=== PATIENT | female | born 1960 | race Caucasian/White ===

== ENCOUNTER 2016-09-12 12:53 | Inpatient (IN) | payer OTHER, MEDICAID ==
[2016-09-12] VITALS (11 sets, daily range): BP systolic 120–158; BP diastolic 59–84; PULSE 75–107; RESP 14–25; O2SAT 70–96
[~2016-09-12] VITALS: Ht 162.6 cm; Wt 90.4 kg
[~2016-09-12 12:53] MED LIST: ALBU18HF INH; ASPI81TA3 PO; ATOR20TA65 PO; BUSP15TA3 PO; DICY20TA10 PO; FLUO20CA25 PO; FLUT16SP NASAL; FURO40TA4 PO; GABA-502 PO; HYDR50CA3 PO; IBUP-1827 PO; LORA10CA PO; MELO-253 PO; METH10OR PO; MULT-666 PO; NPR500T PO; OMEP20CA11 PO; POLY17PO6 PO; PRAZ2CAP2 PO; PRE20 PO; PROP10TA8 PO; RANI150C4 PO; SULF1TAB35 PO; TIOT18CA3 INHALATION
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
[2016-09-12] MEDS ORDERED: Albuterol-Ipratropium 3 mL Inhalation Solution NEB ONE (13:10)
[2016-09-12] MEDS ORDERED: MethylprednisoLONE Sodium Succinate 62.5 mg/mL 2 mL Inj IVPUSH ONE (13:10)
[2016-09-12] MEDS ORDERED: Albuterol 2.5 mg/3 mL Inhalation Solution NEB ONE (13:10)
[2016-09-12] MEDS ORDERED: levoFLOXacin Inj 750 MG in IV Premix 1 EACH IV ONE (13:15)
--- NOTE | 2016-09-12 13:50 | DRSVH ---
PROCEDURE: X-RAY CHEST ONE VIEW, PORTABLE ([id number]) INDICATIONS: sob, hypoxia TECHNIQUE: One view of the chest was acquired. COMPARISON: [facility], CR, XR CHEST 1VW (PORTABLE), 07/08/2016, 11:24. FINDINGS: Surgical changes and devices: None. Lungs and pleura: No pleural effusions or pneumothorax. Lungs are abnormal with either lateral mid and lower lung pneumonia, slightly greater on the right than the left.. Mediastinum: Mediastinal contours appear normal. Heart size is normal. Bones and chest wall: No suspicious bony lesions. Overlying soft tissues appear unremarkable. IMPRESSION: Bilateral pneumonia, right greater than left. Dictated by: Lennox Melgoza M.D. on 09/12/2016 at 13:48 Approved by: Lennox Melgoza M.D. on 09/12/2016 at 13:48
[2016-09-12] MEDS ORDERED: Acetaminophen IV 1,000 MG in IV Premix 1 EACH IV ONE (14:25)
[2016-09-12 14:35] LABS: BASOPHILS % (AUTO) 0.2 % (0-3); EOSINOPHILS % (AUTO) 1.2 % (0-5); Mean Corpuscular Hemoglobin 24.1 pg (27.0-35.0); Mean Corpuscular Volume 82.2 fL (81-100); NEUTROPHILS % (AUTO) 83.6 % (40-74); Platelet Count 233 bil/L (150-400)
[2016-09-12 15:05] LABS: Magnesium 1.7 mg/dL (1.6-2.6)
[2016-09-12 15:15] LABS: TROPONIN T < 0.010 ug/L (0.0-0.011)
[2016-09-12] MEDS ORDERED: Polyethylene Glycol (PEG) 17 Gm Powder PO PRN (16:30)
[2016-09-12] MEDS ORDERED: Alum-Mag Hydrox-Simeth 30 mL Suspension PO PRN (16:30)
[2016-09-12] MEDS ORDERED: Ondansetron 2 mg/mL 2 mL Inj IVPUSH PRN (16:30)
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
[2016-09-12] MEDS ORDERED: Glucose 40% Oral Gel 15 Gm Tube PO PRN (18:10)
--- NOTE | 2016-09-12 18:21 | NUR ---
ED to PCC Patient arrived from ED, report taken from Shea Singh ED RN. Patient able to transfer to bed independently. SPO2 88% upon arrival. RT in room with pt, oxymask 2L satting at 90%. Pt AOx3, denies chest pain, denies bipap at this time okay for oxymask. Care continues.
[2016-09-12] MEDS ORDERED: 0.9% Sodium Chloride 250 ML ONE (19:23)
[2016-09-12] MEDS: cefTRIAXone Inj 1,000 MG in IV Premix 1 EACH IV SCH (19:32)
[2016-09-12] MEDS: Pantoprazole 20 mg ER24 Tablet PO SCH (19:32)
[2016-09-12] MEDS: BusPIRone 15 mg Dividose Tablet PO SCH (19:33)
[2016-09-12] MEDS: Insulin LISPRO 300 Unit/3 mL Inj SUBQ SCH (19:42)
[2016-09-12] MEDS: Albuterol-Ipratropium 3 mL Inhalation Solution NEB SCH (20:48)
[2016-09-12] MEDS ORDERED: LORazepam 1 mg Tablet PO PRN (21:15)
[2016-09-12] MEDS: Doxycycline Inj 100 MG in Dextrose 5% Minibag Plus 100 ML IV SCH (21:20)
[2016-09-13] VITALS (15 sets, daily range): BP systolic 137–164; BP diastolic 73–99; PULSE 78–100; RESP 14–22; O2SAT 90–98
[2016-09-13] MEDS: Albuterol-Ipratropium 3 mL Inhalation Solution NEB SCH ×6 (00:14→19:51)
[2016-09-13] MEDS: Heparin 5,000 Unit/mL Inj SUBQ SCH ×3 (00:30→17:53)
[2016-09-13] MEDS: MethylprednisoLONE Sodium Succinate 40 mg/mL Inj IVPUSH SCH ×2 (00:30→10:23)
--- NOTE | 2016-09-13 04:00 | NUR ---
Restful night. Patient slept in bed for most of the night without signs of distress or pain. Patient requested that is let her sleep as much as she could. Patients vitals remained stable throughout the evening and she maintained O2 saturations in the 90s on 2LPM of oxygen via a nasal cannula.
[2016-09-13] MEDS: Insulin LISPRO 300 Unit/3 mL Inj SUBQ SCH ×4 (08:00→22:00)
[2016-09-13] MEDS ORDERED: levoFLOXacin Inj 750 MG in IV Premix 1 EACH IV SCH (08:30)
[2016-09-13 08:58] LABS: BASOPHILS % (AUTO) 0.3 % (0-3); EOSINOPHILS % (AUTO) 0.1 % (0-5); Mean Corpuscular Hemoglobin 24.1 pg (27.0-35.0); Mean Corpuscular Volume 79.7 fL (81-100); NEUTROPHILS % (AUTO) 86.5 % (40-74); Platelet Count 252 bil/L (150-400)
[2016-09-13] MEDS: Pantoprazole 20 mg ER24 Tablet PO SCH ×2 (10:22→22:05)
[2016-09-13] MEDS: BusPIRone 15 mg Dividose Tablet PO SCH ×2 (10:22→22:05)
[2016-09-13] MEDS: cefTRIAXone Inj 1,000 MG in IV Premix 1 EACH IV SCH (10:24)
[2016-09-13] MEDS ORDERED: Methadone 10 mg/mL Oral Concentrate PO SCH (11:45)
--- NOTE | 2016-09-13 11:50 | NUR ---
Palliative care note D/A: Pt discussed today in PCC rounds. Please note that there is not a PC referral for consult during this acute admission. However, there has been an outpt PC referral request received from pt PCP- Jero YANGP. Palliative care staff have called to pt home several times and left message asking for return call to discuss possible consult. No return call has been received. Case discussed with Faith SCHMITT, Palliative Care. She indicates she would like PC staff to follow along at this time and if they find that pt is in a condition that might benefit from a palliative care referral, she would ask that this be pursued. P: Palliative care following along regarding appropriateness for possible inpt PC referral. Yoselin JUAREZ, CCM
[2016-09-13] MEDS: Doxycycline Inj 100 MG in Dextrose 5% Minibag Plus 100 ML IV SCH ×2 (11:59→22:03)
[2016-09-13] MEDS: LORazepam 1 mg Tablet PO PRN (13:26)
[2016-09-13] MEDS: Tiotropium 18mcg/Cap 5 Capsule Inhaler Kit INHALATION SCH (15:46)
--- NOTE | 2016-09-13 16:02 | PCM.PNMED ---
Subjective Date of Service Sep 13, 2016 Subjective Rebeca Casarez is a 55 year old female with history of COPD on 2L home O2, asthma, former smoker presented to the ED via EMS c/o worsening SOB onset 4 days ago. Admitted for COPD exacerbation and influenza A. Hospital day 2. Overnight: No acute overnight events. Patient remained on oxygen mask at 4 L. Today: Patient endorses decreased respiratory effort. She states she feels anxious in typically takes lorazepam 1 mg twice a day. During further discussion patient notes she is seeing Dr. Francisco, oncology, for management of her COPD and is currently on prednisone 40 mg daily. Patient denies any nausea , vomiting, fever, chills. She does endorse fatigue and generalized malaise. Remaining review of systems is negative. Exam Vital Signs Vital Sign - Last Date Time Temp Pulse Resp B/P Pulse Ox O2 Delivery O2 Flow Rate FiO2 09/13/16 12:38 36.5 88 22 137/85 98 OxyMask 4.00 09/12/16 14:06 35 Intake and Output 09/12/16 09/12/16 09/13/16 Cumulative From/Thru 15:00 23:00 07:00 09/12/16 18:09 - 09/13/16 06:07 Intake Total 400 ml 400 ml Output Total 500 ml 500 ml Balance -100 ml -100 ml Intake Oral 400 ml 400 ml Output Urine Total 500 ml 500 ml # Voids 2 2 # Bowel Movements 0 0 Exam General: No acute distress, well-developed, well-nourished, appropriately interactive HEENT: Normocephalic, atraumatic. External ears without defect. Pupils equal, round, and reactive to light and accommodation. Anicteric sclerae, moist conjunctivae, and no lid lag. Moist mucosa. Neck: Supple with full range of motion. No jugular venous distension. No bruits. No lymphadenopathy or thyromegaly. Cardiovascular: Regular rate and rhythm with no murmurs, rubs, or gallops appreciated Pulmonary: Diffuse wheezing bilaterally, decreased air movement particularly in the bases bilaterally. Normal respiratory effort with no use of accessory muscles. Oxymask at [address] Abdomen: Bowel tones present. Soft, nontender, nondistended. No hepatosplenomegaly or masses appreciated. Extremities: No clubbing, cyanosis, edema, or lymphadenopathy appreciated. Skin: Numerous punctate lesions on arms and legs bilaterally in varying stages of healing. Normal temperature, turgor, and texture. Neurological: Cranial nerves grossly intact. Normal muscle strength, tone, and bulk. Reflexes, coordination, and sensory function within normal limits. No known gait impairment. Psychiatric: Normal mood and affect. Alert and oriented to person, place, and time. Lab and Diagnostics Result Diagram: 09/13/16 0815 09/13/16 1405 X-Rays, CTs and MRIs X-RAY CHEST ONE VIEW, PORTABLE IMPRESSION: Bilateral pneumonia, right greater than left. Dictated by: Lennox Melgoza M.D. on 09/12/2016 at 13:48 Approved by: Lennox Melgoza M.D. on 09/12/2016 at 13:48 Assessment & Plan Rebeca Casarez is a 55 year old female with history of COPD on 2L home O2, asthma, former smoker presented to the ED via EMS c/o worsening SOB onset 4 days ago. Admitted for COPD exacerbation and influenza A. Hospital day 2. 1. Acute COPD exacerbation, present on admission, active. - Likely secondary to influenza A. Treatment as below. - On 2 L nasal cannula at home. Follows with Dr. Francisco as an outpatient. - DuoNeb's every 4 hours when necessary. - Tiotropium bromide inhaled daily. - IV Solu-Medrol initially given. Deescalated to prednisone 40 mg daily. - Ceftriaxone and doxycycline initiated on 09/12. We will continue until second procalcitonin returns. - O2 supplementation as needed to maintain O2 sats between 88% and 92%. 2. Influenza A, present on admission, active. - Tamiflu 75 mg twice a day started 09/13/16. - Duonebs every 4 hours when necessary. 3. Hyperkalemia, present on admission, active. - Potassium 5.7 on admission elevated to 6.1. - EKG showed no abnormalities. - Kayexalate given. Repeat potassium level 4.1 after administration. - We will continue to monitor. 4. Diabetes type II, present on admission, recently diagnosed. - Recently prescribed metformin but has not started. - Insulin lispro correctional scale. 5. Anxiety, present on admission, chronic. - Lorazepam 1 mg as needed twice a day. 6. Depression, present on admission, chronic. - Buspirone 7.5 mg twice a day. - Fluoxetine 40 mg daily. 7. Methadone dependency, present on admission, chronic. - Continue home regimen of methadone 90 mg daily. 8. Tobacco use disorder, present on admission, chronic. - Nicotine 7 mg patch daily. Disposition: O2 requirements increased from baseline discharge pending improvement in oxygenation. Likely will discharge home with no needs. Pain Evaluation: Adequate Pain Control GI Prophylaxis: Proton Pump Inhibitor VTE Prophylaxis: Sub-Q Heparin (Unfractionated) VTE Mechanical Devices: Intermittant Pneumatic CD Resuscitation Status: DNR/DNI:Do Not Resuscitate/Intubate Attending Statement The patient was seen and examined together with Dr. Love on 09-13-16 and I agree with the history, exam and plan as outlined in the note above. SHANEL LOVE DO Sep 13, 2016 16:02 Emely Gunn MD Sep 14, 2016 14:28
[2016-09-13] MEDS ORDERED: 0.9% Sodium Chloride 250 ML ONE (16:11)
[2016-09-13 16:43] LABS: APPEARANCE,URINE CLEAR (CLEAR,HAZY); COLOR,URINE YELLOW (YELLOW)
[2016-09-13 16:44] LABS: OCCULT BLOOD,URINE NEGATIVE (NEGATIVE); PH,URINE 5.5 (5.0-8.0); UROBILINOGEN,URINE NORMAL (NORMAL)
--- NOTE | 2016-09-13 16:52 | NUR ---
Anxiety When first entering her room this morning to give her the AM medications she requested Ativan. She said she was very anxious, that her daughter was getting tomorrow and she was anxious about probably not being able to go, that that they have tried like, "a bunch of different medications on me for anxiety, but the only one that works is Ativan." She requested that I speak to the doctors about it. Spoke to Dr. Charles, Dr. Underwood, and Dr. Huitron about it. They changed her Ativan order from at bedtime to 1 mg of Ativan twice a day. Gave her a dose and she seemed to become less anxious after that. She even had a couple of naps. Care continues.
[2016-09-14] VITALS (15 sets, daily range): BP systolic 142–162; BP diastolic 66–99; PULSE 89–109; RESP 16–23; O2SAT 89–98
[2016-09-14] MEDS: Albuterol-Ipratropium 3 mL Inhalation Solution NEB SCH ×6 (00:22→20:47)
[2016-09-14] MEDS: Heparin 5,000 Unit/mL Inj SUBQ SCH ×3 (01:00→17:20)
[2016-09-14] MEDS: LORazepam 1 mg Tablet PO PRN ×2 (04:17→21:06)
[2016-09-14 04:42] LABS: BASOPHILS % (AUTO) 0.1 % (0-3); EOSINOPHILS % (AUTO) 0 % (0-5); MONOCYTES % (AUTO) 6.5 % (4-12); Mean Corpuscular Hemoglobin 23.7 pg (27.0-35.0); Mean Corpuscular Volume 81.3 fL (81-100); NEUTROPHILS % (AUTO) 84.4 % (40-74); Platelet Count 264 bil/L (150-400)
--- NOTE | 2016-09-14 06:24 | NUR ---
Respiratory/Restful Night O2 anywhere from 2-3L NC to maintain sats 88-92, pt w/ audible wheezes and increased SOB when up to BR. Wheezing seemed slightly better after neb treatments. Pt slept most of night, woke in rotor winder when needing the BR and expressed some sadness over missing her daughter's wedding, she lay awake for some time and also c/o of a headache. Pt asked nursing for Ativan to help her sleep again and this was effective. Pt sleeping well since then.
[2016-09-14] MEDS: Insulin LISPRO 300 Unit/3 mL Inj SUBQ SCH ×4 (07:38→21:07)
[2016-09-14] MEDS: cefTRIAXone Inj 1,000 MG in IV Premix 1 EACH IV SCH (09:00)
[2016-09-14] MEDS: Pantoprazole 20 mg ER24 Tablet PO SCH ×2 (09:03→21:06)
[2016-09-14] MEDS: BusPIRone 15 mg Dividose Tablet PO SCH ×2 (09:04→21:06)
--- NOTE | 2016-09-14 09:23 | NUR ---
Social Work Note: Screen Note Data& Assessment: EMR reviewed. Rebeca Casarez is a 55 year old female admitted n 09/12/2016 for pneumonia and respiratory failure. Pt has [employer] and [facility] Medicaid insurance coverage. Pt sees Martha GREENE for primary care. Pt lives in [place] and is independent at baseline. Pt is currently SBA in her room. Pt uses 2L 02 at baseline and is currently on 4L 02. No discharge needs identified at this time. SW to continue to follow if any needs arise. Plan: Anticipated discharge home via POV when medically ready. No discharge needs identified at this time. SW to continue to follow if any needs arise. OSKAR Vee
[2016-09-14] MEDS: Doxycycline Inj 100 MG in Dextrose 5% Minibag Plus 100 ML IV SCH ×2 (09:46→21:06)
[2016-09-14] MEDS: Tiotropium 18mcg/Cap 5 Capsule Inhaler Kit INHALATION SCH (10:00)
[2016-09-14] MEDS: Methadone 10 mg/mL Oral Concentrate PO SCH (10:54)
--- NOTE | 2016-09-14 18:17 | PCM.PNMED ---
Subjective Date of Service Sep 14, 2016 Subjective Rebeca Casarez is a 55 year old female with history of COPD on 2L home O2, asthma, former smoker presented to the ED via EMS c/o worsening SOB onset 4 days ago. Admitted for COPD exacerbation and influenza A. Hospital day 3. Overnight: No acute overnight events. Patient remained on oxygen mask at 2-3 L. Today: Patient continues to focus on her chronic pain and anxiety. She is difficult to motivate to get up from bed. Discussed the importance of keeping up strength and movement. Patient denies any nausea, vomiting, fever, chills. She does endorse fatigue and generalized malaise. Remaining review of systems is negative. Exam Vital Signs Vital Sign - Last Date Time Temp Pulse Resp B/P Pulse Ox O2 Delivery O2 Flow Rate FiO2 09/14/16 08:00 89 18 98 Nasal Cannula 2.00 09/14/16 07:32 36.8 158/99 09/12/16 14:06 35 Intake and Output 09/13/16 09/13/16 09/14/16 Cumulative From/Thru 15:00 23:00 07:00 09/12/16 18:09 - 09/14/16 06:10 Intake Total 1074 ml 400 ml 1874 ml Output Total 700 ml 300 ml 1500 ml Balance 374 ml 100 ml 374 ml Intake Oral 520 ml 400 ml 1320 ml IV Total 554 ml 554 ml Output Urine Total 700 ml 300 ml 1500 ml # Voids 4 6 # Bowel Movements 0 0 Exam General: No acute distress, well-developed, well-nourished, appropriately interactive HEENT: Normocephalic, atraumatic. External ears without defect. Pupils equal, round, and reactive to light and accommodation. Anicteric sclerae, moist conjunctivae, and no lid lag. Moist mucosa. Neck: Supple with full range of motion. No jugular venous distension. No bruits. No lymphadenopathy or thyromegaly. Cardiovascular: Regular rate and rhythm with no murmurs, rubs, or gallops appreciated Pulmonary: Diffuse wheezing bilaterally, decreased air movement particularly in the bases bilaterally. Normal respiratory effort with no use of accessory muscles. Oxymask at [address] Abdomen: Bowel tones present. Soft, nontender, nondistended. No hepatosplenomegaly or masses appreciated. Extremities: No clubbing, cyanosis, edema, or lymphadenopathy appreciated. Skin: Numerous punctate lesions on arms and legs bilaterally in varying stages of healing. Normal temperature, turgor, and texture. Neurological: Cranial nerves grossly intact. Normal muscle strength, tone, and bulk. Reflexes, coordination, and sensory function within normal limits. No known gait impairment. Psychiatric: Normal mood and affect. Alert and oriented to person, place, and time. Lab and Diagnostics Result Diagram: 09/14/1640909/14/16409 Microbiology Strep pneumoniae urine antigen positive Influenza A positive X-Rays, CTs and MRIs X-RAY CHEST ONE VIEW, PORTABLE IMPRESSION: Bilateral pneumonia, right greater than left. Dictated by: Lennox Melgoza M.D. on 09/12/2016 at 13:48 Approved by: Lennox Melgoza M.D. on 09/12/2016 at 13:48 Assessment & Plan Rebeca Casarez is a 55 year old female with history of COPD on 2L home O2, asthma, former smoker presented to the ED via EMS c/o worsening SOB onset 4 days ago. Admitted for COPD exacerbation and influenza A. Hospital day 3. 1. Acute COPD exacerbation, present on admission, active. - Likely secondary to influenza A. Treatment as below. - On 2 L nasal cannula at home. Follows with Dr. Francisco as an outpatient. - DuoNeb's every 4 hours when necessary. - Tiotropium bromide inhaled daily. - IV Solu-Medrol initially given. Deescalated to prednisone 40 mg daily. - O2 supplementation as needed to maintain O2 sats between 88% and 92%. - Antibiotics as in #3. 2. Influenza A, present on admission, active. - Tamiflu 75 mg twice a day started 09/13/16. - Duonebs every 4 hours when necessary. 3. Pneumonia, present on admission, active. - Streptococcus pneumonia antigen positive. - Legionella negative. - Chest x-ray 09/12 revealed bilateral pneumonia right greater than left. - Inhalers as in #1. - Supplemental oxygen as needed to maintain O2 sats between 88% 92%. - Antibiotics including ceftriaxone (09/12) and doxycycline (). 4. Hyperkalemia, present on admission, resolved. - Potassium 5.7 on admission elevated to 6.1. - EKG showed no abnormalities. - Kayexalate given. Repeat potassium level 4.1 after administration. - We will continue to monitor. 5. Diabetes type II, present on admission, recently diagnosed. - Recently prescribed metformin but has not started. - Insulin lispro correctional scale. 6. Anxiety, present on admission, chronic. - Lorazepam 1 mg as needed twice a day. 7. Depression, present on admission, chronic. - Buspirone 7.5 mg twice a day. - Fluoxetine 40 mg daily. 8. Methadone dependency, present on admission, chronic. - Continue home regimen of methadone 90 mg daily. 9. Tobacco use disorder, present on admission, chronic. - Nicotine 21 mg patch daily. Disposition: O2 requirements increased from baseline discharge pending improvement in oxygenation. Likely will discharge home with no needs. GI Prophylaxis: Proton Pump Inhibitor VTE Prophylaxis: Sub-Q Heparin (Unfractionated) VTE Mechanical Devices: Intermittant Pneumatic CD Resuscitation Status: DNR/DNI:Do Not Resuscitate/Intubate Attending Statement The patient was seen and examined together with Dr. Love on 09-14-16 and I agree with the history, exam and plan as outlined in the note above. SHANEL LOVE DO Sep 14, 2016 10:21 Emely Gunn MD Sep 15, 2016 14:44
--- NOTE | 2016-09-14 18:34 | NUR ---
BLOOD SUGARS/RESPIRATORY Blood sugars have not registered above 100 this shift. 0800: 90, 1200: 93, 1700: 83. Insulin withheld, and 15 gm carbohydrate administered PO for evening blood sugar, and patient also received dinner, states she does not feel hypoglycemic. Will continue to monitor. Patient required OxyMask 5L for a brief period this evening, as SpO2 decreased to 82%, recovered over 15 minutes, increased to 90%, so placed on 4L NC and patient has been tolerating this setting since. Will continue to monitor.
[2016-09-14] MEDS: predniSONE 20 mg Tablet PO SCH (21:06)
[2016-09-15] VITALS (11 sets, daily range): BP systolic 147–166; BP diastolic 86–94; PULSE 90–105; RESP 18–22; O2SAT 88–94
[2016-09-15] MEDS: Albuterol-Ipratropium 3 mL Inhalation Solution NEB SCH ×7 (00:30→20:27)
[2016-09-15] MEDS ORDERED: 0.9% Sodium Chloride 250 ML ONE (00:49)
[2016-09-15] MEDS: Heparin 5,000 Unit/mL Inj SUBQ SCH ×4 (00:57→23:52)
[2016-09-15 04:41] LABS: BASOPHILS % (AUTO) 0.5 % (0-3); EOSINOPHILS % (AUTO) 0.1 % (0-5); MONOCYTES % (AUTO) 3.2 % (4-12); Mean Corpuscular Volume 82.1 fL (81-100); NEUTROPHILS % (AUTO) 83.1 % (40-74); Platelet Count 252 bil/L (150-400)
--- NOTE | 2016-09-15 04:44 | NUR ---
Patient did not want to woken up for her 0000 or 0430 neb treatments. Patient was checked at both times and was in no respiratory distress. Patient was encouraged to call if she woke up and felt she needed a treatment at any time. Rita Vasques RT
--- NOTE | 2016-09-15 04:44 | NUR ---
CPOx Pt refused pulse oximetry over night. Spot checked with Q4 vitals. sats remained in 90's on 4L NC.
[2016-09-15] MEDS: Insulin LISPRO 300 Unit/3 mL Inj SUBQ SCH ×4 (08:00→20:52)
[2016-09-15] MEDS: Doxycycline Inj 100 MG in Dextrose 5% Minibag Plus 100 ML IV SCH ×2 (08:01→20:37)
[2016-09-15] MEDS: cefTRIAXone Inj 1,000 MG in IV Premix 1 EACH IV SCH (08:01)
[2016-09-15] MEDS: Pantoprazole 20 mg ER24 Tablet PO SCH ×2 (08:02→20:37)
[2016-09-15] MEDS: BusPIRone 15 mg Dividose Tablet PO SCH ×2 (08:03→20:38)
[2016-09-15] MEDS: Tiotropium 18mcg/Cap 5 Capsule Inhaler Kit INHALATION SCH (08:04)
[2016-09-15] MEDS: Methadone 10 mg/mL Oral Concentrate PO SCH (08:04)
[2016-09-15] MEDS: LORazepam 1 mg Tablet PO PRN ×3 (08:09→20:31)
[2016-09-15] MEDS: predniSONE 20 mg Tablet PO SCH (10:10)
--- NOTE | 2016-09-15 17:27 | PCM.PNMED ---
Subjective Date of Service Sep 15, 2016 Subjective Rebeca Casarez is a 55 year old female with history of COPD on 2L home O2, asthma, former smoker presented to the ED via EMS c/o worsening SOB onset 4 days ago. Admitted for COPD exacerbation and influenza A. Hospital day 4. Overnight: No acute overnight events. Patient remained on oxygen mask at 3-4 L. Today: Patient still feels weak and short of breath. Patient was in bed for the majority of yesterday. Discussed the need to ambulate and sit in chair. Patient walked halls and desaturated to 69% on 4 L nasal canula. Patient denies any nausea, vomiting, fever, chills. She does endorse fatigue and generalized malaise. Remaining review of systems is negative. Exam Vital Signs Vital Sign - Last Date Time Temp Pulse Resp B/P Pulse Ox O2 Delivery O2 Flow Rate FiO2 09/15/16 16:27 37.0 97 20 166/94 92 Nasal Cannula 4.50 09/12/16 14:06 35 Intake and Output 09/14/16 09/14/16 09/15/16 Cumulative From/Thru 15:00 23:00 07:00 09/12/16 18:09 - 09/15/16 05:34 Intake Total 297 ml 371 ml 1023 ml 3565 ml Output Total 650 ml 400 ml 2550 ml Balance 297 ml -279 ml 623 ml 1015 ml Intake Oral 200 ml 876 ml 2396 ml IV Total 297 ml 171 ml 147 ml 1169 ml Output Urine Total 650 ml 400 ml 2550 ml # Voids 2 8 # Bowel Movements 0 0 Exam General: No acute distress, well-developed, well-nourished, appropriately interactive HEENT: Normocephalic, atraumatic. External ears without defect. Pupils equal, round, and reactive to light and accommodation. Anicteric sclerae, moist conjunctivae, and no lid lag. Moist mucosa. Neck: Supple with full range of motion. No jugular venous distension. No bruits. No lymphadenopathy or thyromegaly. Cardiovascular: Regular rate and rhythm with no murmurs, rubs, or gallops appreciated Pulmonary: Diffuse wheezing bilaterally, decreased air movement particularly in the bases bilaterally. Normal respiratory effort with no use of accessory muscles. Oxymask at [address] Abdomen: Bowel tones present. Soft, nontender, nondistended. No hepatosplenomegaly or masses appreciated. Extremities: No clubbing, cyanosis, edema, or lymphadenopathy appreciated. Skin: Numerous punctate lesions on arms and legs bilaterally in varying stages of healing. Normal temperature, turgor, and texture. Neurological: Cranial nerves grossly intact. Normal muscle strength, tone, and bulk. Reflexes, coordination, and sensory function within normal limits. No known gait impairment. Psychiatric: Normal mood and affect. Alert and oriented to person, place, and time. Lab and Diagnostics Result Diagram: 09/15/16 0356 09/15/16 0356 Microbiology Strep pneumoniae urine antigen positive Influenza A positive X-Rays, CTs and MRIs X-RAY CHEST ONE VIEW, PORTABLE IMPRESSION: Bilateral pneumonia, right greater than left. Dictated by: Lennox Melgoza M.D. on 09/12/2016 at 13:48 Approved by: Lennox Melgoza M.D. on 09/12/2016 at 13:48 Assessment & Plan Rebeca Casarez is a 55 year old female with history of COPD on 2L home O2, asthma, former smoker presented to the ED via EMS c/o worsening SOB onset 4 days ago. Admitted for COPD exacerbation and influenza A. Hospital day 4. 1. Acute COPD exacerbation, present on admission, active. - Likely secondary to influenza A. Treatment as below. - On 2 L nasal cannula at home. Follows with Dr. Francisco as an outpatient. - DuoNeb's every 4 hours when necessary. - Tiotropium bromide inhaled daily. - IV Solu-Medrol initially given. Deescalated to prednisone 40 mg daily. - O2 supplementation as needed to maintain O2 sats between 88% and 92%. - Antibiotics as in #3. 2. Influenza A, present on admission, active. - Tamiflu 75 mg twice a day started 09/13/16. - Duonebs every 4 hours when necessary. 3. Pneumonia, present on admission, active. - Streptococcus pneumonia antigen positive. - Legionella negative. - Chest x-ray 09/12 revealed bilateral pneumonia right greater than left. - Inhalers as in #1. - Supplemental oxygen as needed to maintain O2 sats between 88% 92%. - Antibiotics including ceftriaxone (09/12) and doxycycline (115). 4. Hyperkalemia, present on admission, resolved. - Potassium 5.7 on admission elevated to 6.1. - EKG showed no abnormalities. - Kayexalate given. Repeat potassium level 4.1 after administration. - We will continue to monitor. 5. Diabetes type II, present on admission, recently diagnosed. - Recently prescribed metformin but has not started. - Insulin lispro correctional scale. 6. Anxiety, present on admission, chronic. - Lorazepam 1 mg as needed twice a day. 7. Depression, present on admission, chronic. - Buspirone 7.5 mg twice a day. - Fluoxetine 40 mg daily. 8. Methadone dependency, present on admission, chronic. - Continue home regimen of methadone 90 mg daily. 9. Tobacco use disorder, present on admission, chronic. - Nicotine 21 mg patch daily. Disposition: O2 requirements increased from baseline and desaturates with activity. Discharge pending improvement in oxygenation. Likely will discharge home with no needs. Pain Evaluation: Adequate Pain Control GI Prophylaxis: Proton Pump Inhibitor VTE Prophylaxis: Sub-Q Heparin (Unfractionated) VTE Mechanical Devices: Intermittant Pneumatic CD Resuscitation Status: DNR/DNI:Do Not Resuscitate/Intubate Attending Statement The patient was seen and examined together with Dr. Love on 09-15-16 and I agree with the history, exam and plan as outlined in the note above. SHANEL LOVE DO Sep 15, 2016 17:27 Emely Gunn MD Sep 16, 2016 13:58
--- NOTE | 2016-09-15 17:37 | NUR ---
O2/Ambulation While the pt was able to maintain appropriate O2 sats in bed at 4L NC, the pt desat's to 69% on 4L NC when ambulating 20 feet in the miller. The decision to keep the pt here for another day was subsequently made. The pt continues to maintain sats on the low 90's on 3-4L NC. The POC is a hopeful DC home on O2 tomorrow.
[2016-09-16] VITALS (8 sets, daily range): BP systolic 128–171; BP diastolic 70–94; PULSE 82–118; RESP 17–28; O2SAT 90–94
[2016-09-16] MEDS: LORazepam 1 mg Tablet PO PRN ×2 (00:30→14:48)
--- NOTE | 2016-09-16 04:06 | NUR ---
Respiratory/ anxiety: Sp02 maintained on 4 L NC. pt easily desats with minimal activity- recovers with rest. dry cough noted. Tessalon Pearls given x1. Pt intermittently anxious regarding recent passing of friend. PRN PO Ativan given per pt request with good results- pt sleeping intermittently.
[2016-09-16] MEDS: Albuterol-Ipratropium 3 mL Inhalation Solution NEB SCH ×3 (04:30→11:45)
[2016-09-16 05:46] LABS: BASOPHILS % (AUTO) 0.2 % (0-3); EOSINOPHILS % (AUTO) 0.2 % (0-5); Mean Corpuscular Hemoglobin 23.6 pg (27.0-35.0); Mean Corpuscular Volume 81.8 fL (81-100); NEUTROPHILS % (AUTO) 72.6 % (40-74); Platelet Count 276 bil/L (150-400)
[2016-09-16] MEDS: Insulin LISPRO 300 Unit/3 mL Inj SUBQ SCH ×2 (08:00→12:00)
[2016-09-16] MEDS: BusPIRone 15 mg Dividose Tablet PO SCH (09:09)
[2016-09-16] MEDS: Pantoprazole 20 mg ER24 Tablet PO SCH (09:14)
[2016-09-16] MEDS: predniSONE 20 mg Tablet PO SCH (09:14)
[2016-09-16] MEDS: Tiotropium 18mcg/Cap 5 Capsule Inhaler Kit INHALATION SCH (09:15)
[2016-09-16] MEDS: Methadone 10 mg/mL Oral Concentrate PO SCH (09:16)
[2016-09-16] MEDS: Heparin 5,000 Unit/mL Inj SUBQ SCH (09:17)
[2016-09-16] MEDS: Doxycycline Inj 100 MG in Dextrose 5% Minibag Plus 100 ML IV SCH (09:20)
[2016-09-16] MEDS: cefTRIAXone Inj 1,000 MG in IV Premix 1 EACH IV SCH (09:20)
[2016-09-16] MEDS ORDERED: OSLT75C PO (11:53)
[2016-09-16] MEDS ORDERED: CEFU500T61 PO (11:53)
--- NOTE | 2016-09-16 12:04 | PCM.DIMED ---
Discharge Instructions Date of Service Sep 16, 2016 Dates of Hospitalization Sep 12, 2016 at 16:19 Discharge Diagnosis Discharge Diagnosis 1. Acute COPD exacerbation, present on admission, improved. 2. Influenza A, present on admission, under treatment. 3. Pneumonia, present on admission, under treatment. 4. Hyperkalemia, present on admission, resolved. 5. Diabetes type II, present on admission, recently diagnosed. 6. Anxiety, present on admission, chronic. 7. Depression, present on admission, chronic. 8. Methadone dependency, present on admission, chronic. 9. Tobacco use disorder, present on admission, chronic. Medication Instructions During your hospitalization you were diagnosed with influenza A and pneumonia. Treatment was started in the hospital but needs to be continued at home as follows: - Tamiflu 75 mg twice a day for 3 more doses. This will complete your course on the evening of 09/17. - Ceftin 500 mg twice a day for 5 more doses. This will complete your course on the evening of 09/18. No other changes to your medications were made. Please take all medications as previously prescribed by your primary care doctor and specialists. Diet Diabetic Activity Other (Gradually increase exercise as tolerated. Monitor your oxygen saturation.) Call your provider Fever or Chills, Shortness of breath, Chest pain, Weakness (unilateral) Patient Instructions - During your hospitalization you were diagnosed with influenza A and pneumonia. - Please complete your antibiotics and Tamiflu as directed above. - Currently you are requiring slightly more oxygen when ambulating. Continue to monitor your oxygen level at home. - If you develop increased shortness of breath or cough please call your primary care doctor or return to the emergency department immediately. - Follow up with your primary care doctor in 3-4 days. - Follow up with Dr. Francisco, conductor orchestra, as scheduled for 09/23/16. Follow-up Provider: Martha Lanza Follow-up with PCP in: Other (3-4 days) Provider: Sophy Francisco MD Follow-up in: Other (as scheduled for 09/23/16) SHANEL LOVE DO Sep 16, 2016 12:04
--- NOTE | 2016-09-16 12:49 | NUR ---
PATIENT ANXIETY - Pt is anxious about going home due to the recent passing of a friend. She expressed concern that she isn't going to be able to deal with the grief. We spoke about her making sure to reach out to her support network during this time.
--- NOTE | 2016-09-16 14:53 | NUR ---
Social Work: Discharge D: Pt discussed in am rounds. Pt is medically stable for discharge home today. EMR reviewed, pt has been ambulating I with [facility] plans staff officer today. Pt expressing anxiety about discharge home due to recent loss of a friend. ASSEMBLING FABRICATOR met with pt at bedside to confirm dcp. Pt agrees with plan home and is calling friends to come pick her up. Pt expressed grief over the of a good friend. ASSEMBLING FABRICATOR offered community MH resources which the pt declined. Pt denies any SI ideation and states she has good support from friends. A: Pt who is I at baseline. P: Anticipate pt to discharge home today via POV. No sw needs or barriers identified at this time. OSKAR Foy
--- NOTE | 2016-09-16 14:54 | PCM.DC.MED ---
Discharge Summary Date of Service Sep 16, 2016 Dates of Hospitalization Date of Hospital Admission Sep 12, 2016 at 16:19 Date of Discharge: Sep 16, 2016 Providers: Admitting Physician: Uvaldo Melgoza MD Primary Care Physician: Martha Lanza Attending Physician: Uvaldo Melgoza MD Diagnosis at Time of Discharge Diagnosis at Time of Discharge 1. Acute COPD exacerbation, present on admission, improved. 2. Influenza A, present on admission, under treatment. 3. Pneumonia, present on admission, under treatment. 4. Hyperkalemia, present on admission, resolved. 5. Diabetes type II, present on admission, recently diagnosed. 6. Anxiety, present on admission, chronic. 7. Depression, present on admission, chronic. 8. Methadone dependency, present on admission, chronic. 9. Tobacco use disorder, present on admission, chronic. Procedures XRay, CTs & MRIs X-RAY CHEST ONE VIEW, PORTABLE IMPRESSION: Bilateral pneumonia, right greater than left. Dictated by: Lennox Melgoza M.D. on 09/12/2016 at 13:48 Approved by: Lennox Melgoza M.D. on 09/12/2016 at 13:[address] Melgoza's H&P: 55 year old female with history of COPD on 2L home O2, asthma,former smoker presented to the ED via EMS c/o worsening SOB onset 4 days ago. This is associated subjective fever, non-productive cough, chest tightness, head ache. Upon EMS arrival her oxygen saturation was 85% on room air which improved on route to 98% after being placed on 2L of O2 and receiving a breathing treatment. O2 sat on RA at time of interview is 70%. She denies CP, abdominal pain, N/V/D. She has been using prescribed inhalers without relief. Only recently she was told that she has COPD and diabetes. Her diabetes medications have not been started yet. She has never required intubation. In ER, she was placed on BiPAP intermittently and pt states that she does not want it. ABG was : 7.25 / 79 / 106 / 32. Labs revealed leukocytosis, mild elevation of potassium of 5.7, low albumin 3.2 and elevated BNP of 947. Hospital Course Rebeca Casarez is a 55 year old female with history of COPD on 2L home O2, asthma, former smoker presented to the ED via EMS c/o worsening SOB onset 4 days ago. Admitted for COPD exacerbation and influenza A. 1. Acute COPD exacerbation, present on admission, improving. - Likely secondary to influenza A. Treatment as below. - On 2 L nasal cannula at home. Follows with Dr. Francisco as an outpatient. - DuoNeb's every 4 hours when necessary. - Tiotropium bromide inhaled daily. - IV Solu-Medrol initially given. Deescalated to prednisone 40 mg daily. -O2 supplementation as needed to maintain O2 sats between 88% and 92%. - Requiring 3-4L with activity and 2L at rest at time of discharge. - Antibiotics as in #3. 2. Influenza A, present on admission, under treatment. - Tamiflu 75 mg twice a day started 09/13/16. - Duonebs every 4 hours when necessary. 3. Pneumonia, present on admission, under treatment. - Streptococcus pneumonia antigen positive. - Legionella negative. - Chest x-ray 09/12 revealed bilateral pneumonia right greater than left. - Inhalers as in #1. - Supplemental oxygen as needed to maintain O2 sats between 88% 92%. - Antibiotics including ceftriaxone (09/12) and doxycycline (115). 4. Hyperkalemia, present on admission, resolved. - Potassium 5.7 on admission elevated to 6.1. - EKG showed no abnormalities. - Kayexalate given. Repeat potassium level 4.1 after administration. - We will continue to monitor. 5. Diabetes type II, present on admission, recently diagnosed. - Recently prescribed metformin but has not started. - Insulin lispro correctional scale. 6. Anxiety, present on admission, chronic. - Lorazepam 1 mg as needed twice a day. 7. Depression, present on admission, chronic. - Buspirone 7.5 mg twice a day. - Fluoxetine 40 mg daily. 8. Methadone dependency, present on admission, chronic. - Continue home regimen of methadone 90 mg daily. 9. Tobacco use disorder, present on admission, chronic. - Nicotine 21 mg patch daily. Exam Vital Signs (Last) Date Time Temp Pulse Resp B/P Pulse Ox O2 Delivery O2 Flow Rate FiO2 09/16/16 12:14 Supplement Oxygen 09/16/16 11:59 37.4 99 18 128/70 94 4.00 09/12/16 14:06 35 Exam General: No acute distress, well-developed, well-nourished, appropriately interactive HEENT: Normocephalic, atraumatic. External ears without defect. Pupils equal, round, and reactive to light and accommodation. Anicteric sclerae, moist conjunctivae, and no lid lag. Moist mucosa. Neck: Supple with full range of motion. No jugular venous distension. No bruits. No lymphadenopathy or thyromegaly. Cardiovascular: Regular rate and rhythm with no murmurs, rubs, or gallops appreciated Pulmonary: Diffuse wheezing bilaterally, decreased air movement. Normal respiratory effort with no use of accessory muscles. Nasal cannula at 2-3 L. Abdomen: Bowel tones present. Soft, nontender, nondistended. No hepatosplenomegaly or masses appreciated. Extremities: No clubbing, cyanosis, edema, or lymphadenopathy appreciated. Skin: Numerous punctate lesions on arms and legs bilaterally in varying stages of healing. Normal temperature, turgor, and texture. Neurological: Cranial nerves grossly intact. Normal muscle strength, tone, and bulk. Reflexes, coordination, and sensory function within normal limits. No known gait impairment. Psychiatric: Normal mood and affect. Alert and oriented to person, place, and time. Test 09/12/16 14:00 09/13/16 08:15 09/13/16 16:20 09/14/16 04:10 Magnesium Level 1.7mg/dL (1.6-2.6) Troponin T < 0.010ug/L (0.0-0.011) Pro-B-Type Natriuretic Peptide 947.4pg/mL (0-287) Total Bilirubin 0.2mg/dL (0.0-1.2) Aspartate Amino Transf (AST/SGOT) 32U/L (0-50) Alanine Aminotransferase (ALT/SGPT) 25U/L (0-32) Alkaline Phosphatase 101U/L (25-150) Total Protein 6.1g/dL (6.4-8.4) Albumin 2.9g/dL (3.4-5.0) Urine Color Yellow (YELLOW) Urine Appearance Clear (CLEAR,HAZY) Urine pH 5.5 (5.0-8.0) Urine Specific [place] 1.020 (1.003-1.035) Urine Protein Negativemg/dL (NEG,TRACE) Urine Glucose (UA) Negativemg/dL (NEGATIVE) Urine Ketones Negativemg/dL (NEGATIVE) Urine Occult Blood Negative (NEGATIVE) Urine Nitrite Negative (NEGATIVE) Urine Bilirubin Negative (NEGATIVE) Urine Urobilinogen Normalmg/dL (NORMAL) Urine Leukocyte Esterase Negative (NEGATIVE) Urine RBC 0-2/hpf (0-2) Urine WBC 0-5/hpf (0-5) Urine Epithelial Cells None/hpf (NONE-MOD) Urine Crystals None seen (NONE SEEN) Urine Bacteria None/hpf (NONE-FEW) Urine Hyaline Casts None/lpf (NONE) Urine Granular Casts None seen (NONE SEEN) Urine Waxy Casts None seen (NONE SEEN) Urine Red Blood Cell Casts None seen (NONE SEEN) Urine White Blood Cell Casts None seen (NONE SEEN) Urine Mucus None seen (None Seen) Urine Trichomonas None seen (NONE SEEN) Urine Yeast None (NONE SEEN) Urinalysis Comment None Urine Culture Reflexed Not indicated Urine Opiates Screen Negative Urine Methadone Screen Positive Urine Barbiturates Screen Negative Urine Amphetamines Screen Negative Urine Benzodiazepines Screen Negative Urine Cocaine Metabolite Screen Negative Urine Cannabinoids Screen Negative Urine Legionella pneumophilia Ag Negative (Negative) Procalcitonin < 0.05ng/mL (See Comment) Test 09/16/16 04:37 White Blood Count 12.2th/mm3 (3.8-10.1) Red Blood Count 4.45mil/mm3 (3.90-5.20) Hemoglobin 10.5g/dL (12.0-15.6) Hematocrit 36.4% (35.0-46.0) Mean Corpuscular Volume 81.8fL (81-100) Mean Corpuscular Hemoglobin 23.6pg (27.0-35.0) Mean Corpuscular Hemoglobin Concent 28.8% (32.0-37.0) Red Cell Distribution Width 21.0% (12.3-15.4) Platelet Count 276bil/L (150-400) Neutrophils (%) (Auto) 72.6% (40-74) Lymphocytes (%) (Auto) 20.1% (14-46) Monocytes (%) (Auto) 6.0% (4-12) Eosinophils (%) (Auto) 0.2% (0-5) Basophils (%) (Auto) 0.2% (0-3) Sodium Level 142mEq/L (134-144) Potassium Level 4.4mEq/L (3.5-5.2) Chloride Level 97mEq/L (97-108) Carbon Dioxide Level 33mmol/L (18-29) Blood Urea Nitrogen 23mg/dL (6-24) Creatinine 0.70mg/dL (0.57-1.00) Estimat Glomerular Filtration Rate 124mL/min (>59) Glucose Level 108mg/dL (60-99) Calcium Level 8.7mg/dL (8.5-10.1) Microbiology Results Strep pneumoniae urine antigen positive Influenza A positive Discharge Medications Discharge Medications Aspirin Chew (Aspirin Chew) 81 Mg Tablet 81 MG PO DAILY Prescribed by: DANIEL PINA DO Atorvastatin Calcium (Atorvastatin Calcium) 20 Mg Tablet 20 MG PO HS Prescribed by: DANIEL PINA DO Buspirone (Buspirone) 15 Mg Tablet 7.5 MG PO BID (Reported) Cefuroxime Axetil (Cefuroxime) 500 Mg Tablet 500 MG PO BID Prescribed by: SHANEL LOVE DO Fluoxetine (Fluoxetine) 20 Mg Capsule 40 MG PO QAM (Reported) Fluticasone Propionate (Fluticasone Propionate Nasal) 16 Gm Toxey.susp 2 SPRAYS NASAL DAILY (Reported) Furosemide (Furosemide) 40 Mg Tablet 40 MG PO DAILY Prescribed by: SWATHI BALDERAS DO Gabapentin (Gabapentin) 300 Mg Capsule 600 MG PO BID (Reported) Gabapentin (Gabapentin) 300 Mg Capsule 300 MG PO MIDDAY (Reported) Methadone HCl (Methadose) 10 Mg/1 Ml Oral.conc 90 MG PO QAM (Reported) Multivitamin (Once Daily) 1 Each Tablet 1 EACH PO DAILY (Reported) Omeprazole (Omeprazole) 20 Mg Capsule.dr 20 MG PO DAILY (Reported) Oseltamivir Phosphate (Tamiflu) 10 Cap/Pkg Capsule 75 MG PO BID Prescribed by: SHANEL LOVE DO Prazosin (Prazosin) 2 Mg Capsule 4 MG PO HS (Reported) "NIGHTMARES" Prednisone (PredniSONE) 20 Mg Tablet 40 MG PO QAM (Reported) Sulfamethoxazole/Trimeth 800-160 mg (Bactrim DS 800-160 mg) 1 Each Tablet 1 TABLET PO BID (Reported) Tiotropium [place] (Spiriva) 18 Mcg Cap.w.dev 18 MCG INHALATION DAILY Prescribed by: LATRICE VIDAL MD As needed Albuterol Sulfate (Ventolin HFA Inhaler) 200 Puff/18 Gm Inhaler 1 PUFF INH Q4 PRN PRN For Wheezing Prescribed by: SWATHI BALDERAS DO Dicyclomine (Dicyclomine) 20 Mg Tablet 10-20 MG PO QID PRN PRN For GI Cramps ( Reported) Hydroxyzine Pamoate (HydrOXYzine Pamoate) 50 Mg Capsule 50 MG PO QID PRN PRN For Anxiety (Reported) Propranolol HCl (Propranolol HCl) 10 Mg Tablet 10 MG PO TID PRN PRN For Anxiety (Reported) Additional med instructions During your hospitalization you were diagnosed with influenza A and pneumonia. Treatment was started in the hospital but needs to be continued at home as follows: - Tamiflu 75 mg twice a day for 3 more doses. This will complete your course on the evening of 09/17. - Ceftin 500 mg twice a day for 5 more doses. This will complete your course on the evening of 09/18. No other changes to your medications were made. Please take all medications as previously prescribed by your primary care doctor and specialists. Followup Plan Discharge Diet: Diabetic Discharge Activity: Other (Gradually increase exercise as tolerated. Monitor your oxygen saturation.) Patient Instructions - During your hospitalization you were diagnosed with influenza A and pneumonia. - Please complete your antibiotics and Tamiflu as directed above. - Currently you are requiring slightly more oxygen when ambulating. Continue to monitor your oxygen level at home. - If you develop increased shortness of breath or cough please call your primary care doctor or return to the emergency department immediately. - Follow up with your primary care doctor in 3-4 days. - Follow up with Dr. Francisco, ad writer, as scheduled for 09/23/16. Follow-up Provider: Martha Lanza Follow-up with PCP in: Other (3-4 days) Provider: Sophy Francisco MD Follow-up in: Other (as scheduled for 09/23/16) Time spent 35 min Attending Statement The patient was seen and examined together with Resident/House-staff on 09/16/16 and I agree with the history, exam and plan as outlined in the note above. copies to: Sophy Francisco MD; Martha Lanza BETHANY A DO Sep 16, 2016 14:54 Walt Galeano Sep 17, 2016 17:17
--- NOTE | 2016-09-16 16:04 | DRSVH ---
PROCEDURE: X-RAY CHEST, TWO VIEWS ([id number]) INDICATIONS: shortness of breath TECHNIQUE: 2 views of the chest were acquired. COMPARISON: [facility], CR, XR CHEST 1VW (PORTABLE), 09/12/2016, 13:07. [facility], CR, XR CHEST 2VW, 06/24/2016, 13:37. FINDINGS: Surgical changes and devices: None. Lungs and pleura: Interval decrease in airspace opacities within the mid lungs and the lung bases, ot herwise persistent edema is present. Mediastinum: Mediastinal contours are normal. Heart size is normal. Bones and chest wall: No suspicious bony abnormalities. Soft tissues appear unremarkable. IMPRESSION: Persistent pulmonary edema and interval decrease in confluent air space opacities within the mid lung and the lung bases. Dictated by: Wei Burden [facility] Interpreted: Sachi Che MD on 09/16/2016 at 16:04 Transcribed by: NANCY on 09/16/2016 at 16:04 Approved by: Sachi Che MD, PhD on 09/16/2016 at 16:34
--- NOTE | 2016-09-16 16:07 | NUR ---
DISCHARGE NOTE: Pt was discharged on 09/16/16 and was taken by MARCEL in a wheelchair to the hospital lobby at 1600. Pt was picked up by her brother and left in private vehicle. Pt left with all her belongings, an oxygen tank running at 4L, and her discharge paperwork. She verbalized understanding of all discharge education and was able to repeat back instructions. Pt's vital signs were within her baseline parameters before leaving.
== END 2016-09-16 16:11 | disposition home or self-care (01) | DRG 140 ==
LOC: SED 12:53 → PCC 16:19
PROVIDERS: ADMIT Internal Medicine; ATTEND Internal Medicine
PROC: 4A033B1 Measurement of Arterial Pressure, Peripheral, Percutaneous Approach (ICD-10-PCS; principal; 2016-09-12)
DX: J44.1 Chronic obstructive pulmonary disease with (acute) exacerbation (principal); J13 Pneumonia due to Streptococcus pneumoniae; J96.12 Chronic respiratory failure with hypercapnia; J96.11 Chronic respiratory failure with hypoxia; F11.20 Opioid dependence, uncomplicated; J10.08 Influenza due to other identified influenza virus with other specified pneumonia; Z99.81 Dependence on supplemental oxygen; E87.5 Hyperkalemia; E11.9 Type 2 diabetes mellitus without complications; F41.9 Anxiety disorder, unspecified; F32.9 Major depressive disorder, single episode, unspecified; F17.210 Nicotine dependence, cigarettes, uncomplicated; Z66 Do not resuscitate

== ENCOUNTER 2016-11-07 15:00 | Inpatient (IN) | payer OTHER, MEDICAID ==
[2016-11-07] VITALS (16 sets, daily range): BP systolic 99–147; BP diastolic 44–71; PULSE 72–94; RESP 12–20; O2SAT 52–100
[~2016-11-07] VITALS: Ht 162.6 cm; Wt 88.4 kg
[~2016-11-07 15:00] MED LIST changes: +CEFU500T61 PO; -IBUP-1827 PO; -LORA10CA PO; -MELO-253 PO; -NPR500T PO; +OSLT75C PO; -POLY17PO6 PO; -RANI150C4 PO
--- NOTE | 2016-11-07 15:10 | ED.REPORT ---
HPI-General Illness Date of Service Nov 07, 2016 ED Provider: Dr. Carlos Rivera The patient is a 56 year old female w/ a hx of COPD, asthma, DM, and interstitial lung disease who presents to the ED by EMS for right hip pain after a ground level fall. Patient has been having multiple falls for the past 2 years. EMS report that on scene patient oxygen saturation was 30% RA w/ blue lips and purple extremities, mentating. She arrives to the ED, RA oxygen saturation 52%, placed on non-rebreather oxygen saturation is 94% resting with eyes closed and not responding. Patient turned down to 6 L now with oxygen saturation 86%. Most recent ED visit was 09/12/16 for COPD exacerbation Unable to obtain ROS or PMHx due to patient condition. Nursing Notes Stated Complaint: GROUND LEVEL FALL Chief Complaint: Respiratory Distress Nursing Notes Reviewed: Yes Allergies: Coded Allergies: Iodine and Iodide Containing Produc (Verified Allergy, Unknown, 09/12/16) iodine (Unverified Allergy, Unknown, 11/07/16) Scheduled Aspirin Chew (Aspirin Chew) 81 Mg Tablet 81 MG PO DAILY Atorvastatin Calcium (Atorvastatin Calcium) 20 Mg Tablet 20 MG PO HS Buspirone (Buspirone) 15 Mg Tablet 7.5 MG PO BID Cefuroxime Axetil (Cefuroxime) 500 Mg Tablet 500 MG PO BID Fluoxetine (Fluoxetine) 20 Mg Capsule 40 MG PO QAM Fluticasone Propionate (Fluticasone Propionate Nasal) 16 Gm [place].susp 2 SPRAYS NASAL DAILY Furosemide (Furosemide) 40 Mg Tablet 40 MG PO DAILY Gabapentin (Gabapentin) 300 Mg Capsule 600 MG PO BID Gabapentin (Gabapentin) 300 Mg Capsule 300 MG PO MIDDAY Methadone HCl (Methadose) 10 Mg/1 Ml Oral.conc 90 MG PO QAM Multivitamin (Once Daily) 1 Each Tablet 1 EACH PO DAILY Omeprazole (Omeprazole) 20 Mg Capsule.dr 20 MG PO DAILY Oseltamivir Phosphate (Tamiflu) 10 Cap/Pkg Capsule 75 MG PO BID Prazosin (Prazosin) 2 Mg Capsule 4 MG PO HS "NIGHTMARES" Prednisone (PredniSONE) 20 Mg Tablet 40 MG PO QAM Sulfamethoxazole/Trimeth 800-160 mg (Bactrim DS 800-160 mg) 1 Each Tablet 1 TABLET PO BID Tiotropium [place] (Spiriva) 18 Mcg Cap.w.dev 18 MCG INHALATION DAILY Scheduled PRN Albuterol Sulfate (Ventolin HFA Inhaler) 200 Puff/18 Gm Inhaler 1 PUFF INH Q4 PRN PRN For Wheezing Dicyclomine (Dicyclomine) 20 Mg Tablet 10-20 MG PO QID PRN PRN For GI Cramps Hydroxyzine Pamoate (HydrOXYzine Pamoate) 50 Mg Capsule 50 MG PO QID PRN PRN For Anxiety Propranolol HCl (Propranolol HCl) 10 Mg Tablet 10 MG PO TID PRN PRN For Anxiety General Time Seen by MD: 15:10 Chief Complaint Other (right hip pain) Unable to Obtain Hx: Patient condition Arrived By: Ambulance Sudden in Onset?: Yes Onset Occurred: Just prior to arrival Symptom Duration: Since onset Caused by: Fall on ground Location: : Hip right Quality: Painful Recent Healthcare: Recent doctor visit Similar Sx Previous: Yes Past Medical History Past Medical History interstitial lung disease Reports: COPD, Diabetes mellitus Smoking History Unknown if Ever Smoker Social History Other Social History: Lives in [facility] Ambulatory Status Walker Review of Systems Unable to Obtain ROS Patient condition Physical Exam no meanginful hx available Vital Signs Vital Signs Date Time Temp Pulse Resp B/P Pulse Ox O2 Delivery O2 Flow Rate FiO2 11/07/16 22:02 76 12 116/62 89 Mechanical Ventilator 11/07/16 21:14 78 15 114/61 100 Mechanical Ventilator 11/07/16 21:10 77 99 11/07/16 21:03 79 12 99/50 100 Mechanical Ventilator 11/07/16 20:26 81 18 106/56 100 Mechanical Ventilator 11/07/16 19:45 91 11/07/16 18:55 17 91 40 11/07/16 18:00 78 12 101/48 91 BiPAP 11/07/16 17:59 18 90 40 11/07/16 16:45 82 18 147/67 92 Simple Mask 8 11/07/16 15:36 94 18 87 OxyMask 7 11/07/16 15:10 36.4 94 15 52 Room Air Initial VS: Reviewed Head / Eyes: Atraumatic, Normocephalic, PERRL Cardiovascular: Regular rate & rhythm, Heart sounds normal, Intact distal pulses Abdomen / GI: Soft, Non-tender, No guarding, No rebound, No distention Extremities: Vascular intact, Neuro intact, No swelling, No tenderness General/Constitutional: Awake, Alert, Well appearing Alertness: Positive: Disoriented, Sleeping but arousable Mouth: Positive: Mucous membranes dry Wheezing / Retractions: Positive: Wheezing mild chest was wheezy on both sides not breathing deply Color / Condition: Positive: Lesion present... Rash / Lesion Notes: dry scabs all over the place dry mildly icteric Interpretation & Diagnostics Lab Results Interpretation Result Diagram: 11/07/16 1732 11/07/16 1732 Test 11/07/16 17:32 11/07/16 17:50 11/07/16 21:50 White Blood Count 22.3th/mm3 (3.8-10.1) Red Blood Count 5.00mil/mm3 (3.90-5.20) Hemoglobin 11.9g/dL (12.0-15.6) Hematocrit 38.8% (35.0-46.0) Mean Corpuscular Volume 77.6fL (81-100) Mean Corpuscular Hemoglobin 23.8pg (27.0-35.0) Mean Corpuscular Hemoglobin Concent 30.7% (32.0-37.0) Red Cell Distribution Width 21.1% (12.3-15.4) Platelet Count 304bil/L (150-400) Neutrophils (%) (Auto) 86.9% (40-74) Lymphocytes (%) (Auto) 8.6% (14-46) Monocytes (%) (Auto) 3.8% (4-12) Eosinophils (%) (Auto) 0.2% (0-5) Basophils (%) (Auto) 0.1% (0-3) Sodium Level 139mEq/L (134-144) Potassium Level 4.0mEq/L (3.5-5.2) Chloride Level 99mEq/L (97-108) Carbon Dioxide Level 24mmol/L (18-29) Blood Urea Nitrogen 28mg/dL (6-24) Creatinine 0.93mg/dL (0.57-1.00) Estimat Glomerular Filtration Rate 89mL/min (>59) Glucose Level 119mg/dL (60-99) Lactic Acid Level 1.1mmol/L (0.4-2.0) Calcium Level 8.8mg/dL (8.5-10.1) Total Bilirubin 0.8mg/dL (0.0-1.2) Aspartate Amino Transf (AST/SGOT) 69U/L (0-50) Alanine Aminotransferase (ALT/SGPT) 41U/L (0-32) Alkaline Phosphatase 131U/L (25-150) Ammonia 31ug/dL (18-53) Total Protein 6.4g/dL (6.4-8.4) Albumin 3.3g/dL (3.4-5.0) Salicylates Level < 3.0ug/mL (30-250) Acetaminophen Level < 15.0ug/mL Rx (10-25) Alcohols < 10mg/dL (0-10) Urine Color Dark yellow (YELLOW) Urine Appearance Hazy (CLEAR,HAZY) Urine pH 5.5 (5.0-8.0) Urine Specific [place] >1.030 (1.003-1.035) Urine Protein Negativemg/dL (NEG,TRACE) Urine Glucose (UA) Negativemg/dL (NEGATIVE) Urine Ketones Negativemg/dL (NEGATIVE) Urine Occult Blood Negative (NEGATIVE) Urine Nitrite Negative (NEGATIVE) Urine Bilirubin Negative (NEGATIVE) Urine Urobilinogen Normalmg/dL (NORMAL) Urine Leukocyte Esterase Negative (NEGATIVE) Urine RBC 0-2/hpf (0-2) Urine WBC 0-5/hpf (0-5) Urine Epithelial Cells Moderate/hpf (NONE-MOD) Urine Crystals None seen (NONE SEEN) Urine Bacteria Few/hpf (NONE-FEW) Urine Hyaline Casts Occasional/lpf (NONE) Urine Granular Casts None seen (NONE SEEN) Urine Waxy Casts None seen (NONE SEEN) Urine Red Blood Cell Casts None seen (NONE SEEN) Urine White Blood Cell Casts None seen (NONE SEEN) Urine Mucus None seen (None Seen) Urine Trichomonas None seen (NONE SEEN) Urine Yeast None (NONE SEEN) Urinalysis Comment None Urine Culture Reflexed Not indicated Urine Opiates Screen Negative Urine Methadone Screen Positive Urine Barbiturates Screen Negative Urine Amphetamines Screen Positive Urine Benzodiazepines Screen Negative Urine Cocaine Metabolite Screen Negative Urine Cannabinoids Screen Negative Magnesium Level 1.5mg/dL (1.6-2.6) Prealbumin 9mg/dL (20-40) ECG Interpretation ECG Interpretation: Bilateral enlargement LVH consider inferior infarct IVCD Time: 14:37 Interpreted by: ED physician Normal ECG Interpretation: Normal sinus rhythm (82) CT Head Interpretation IMPRESSION: 1. No acute intracranial findings. 2. 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 Dictated by: Penelope Granados M.D. on 11/07/2016 at 16:55 Approved by: Penelope Granados M.D. on 11/07/2016 at 16:58 Study: Head CT no contrast Interpretation / Wet Read by: Interpret - Radiologist CT C-Spine Interpretation IMPRESSION: 1. No acute cervical spine injury. 2. Superior endplate depression at T4 which is new when compared with the prior cross-sectional study dated 03/21/16. The acuity of this finding is unknown. However, if the patient endorses focal pain in this region, acute compression deformity could be suspected. If further characterization is warranted, noncontrast MRI of the cervicothoracic region may be helpful. 3. "Crazy paving" pattern within the pulmonary apices bilaterally. There is a broad differential for this finding which includes pulmonary edema, ARDS, pulmonary alveolar proteinosis, acute interstitial pneumonia, and bacterial pneumonia. Dictated by: Penelope Granados M.D. on 11/07/2016 at 17:00 Approved by: Penelope Granados M.D. on 11/07/2016 at 17:07 Study type: CT no contrast Interpretation / Wet Read by: Althea w radiologist Procedures Central Line Placement Time: 16:59 Procedure Performed by: ED physician Consent / Setup / Site Prep: Informed consent provided, Time-out performed, Needle aspirate performed, Oxygen administered, Pulse oximeter applied, machine inker applied, Hand hygiene observed, Standard surgical scrub, Max barrier precaution, Sterile drapes applied, Position Trendelenburg Skin Preparation Agent: Hibiclens - Chlorhexidine (x3) Local Anesthesia: Lidocaine 1% Side / Location / Ultrasound: Subclavian right Catheter / Lumen / Technique: Seldinger technique Central Line Tip Location: Cath tip good position in the SVC Post-Procedure / Complications: Antibiotic oint applied, Dressing placed, Condition improved, Tolerated procedure well, Patient stable Intubation Time: 19:34 Procedure Performed by: ED physician Consent / Setup / Site Prep: Informed consent provided, Time-out performed, Oxygen administered, Pulse oximeter applied, machine inker applied, Hand hygiene observed, Stand sterile technique Patient Position: Neutral position Blade / ET Tube / Route: [place], ET tube cuffed (eight Luxembourgish), Route: oral Procedural Sedation/Analgesia: Sedation: Etomidate Neuromuscular Agent: Succinylcholine Complications: None Post-Procedure: Condition improved, Tolerated procedure well, Patient stable Re-Eval/Medical Decision Med Decision/Clinical Course 56-year-old with hypercarbic respiratory failure, presents after multiple falls with an altered mental status. She was quite hypoxemic in the field, and became more somnolent after application of oxygen during transport. She is barely arousable at this point. Her exam shows a drowsy barely arousable female in no overt distress, with bruises on face and arms. Neck is nontender. She has audible wheezes in her lungs bilaterally. Abdomen appears benign. Pulse appears stable. She is nonreactive to moving her hips. CT cranium and neck are unremarkable. X-ray shows fluffy infiltrates bilaterally. Blood gas confirms hypercarbic respiratory failure. She was awake enough briefly to be on BiPAP, but has become somnolent again, and so required intubation. She also has chronic access issues due to chronic IV drug abuse, and required a right subclavian line, which I placed. She was admitted now to the ICU for further evaluation and management. Treated presumptively for pneumonia with Zosyn and vancomycin. Transported in critical condition. Time of Eval: 16:27 Re-Evaluation/Progress Note: Plan to put a central line. Time of Eval: 19:43 Patient Status: Condition unchanged Re-Evaluation/Progress Note: Pt is intubated. Procedure tolerated well. Pt will be admitted to hospital. 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 Estevan understands and agrees with plan. Counseled Regarding: Diagnosis, Lab results, Need for admission Discharge & Departure Primary Impression: Pneumonia Pneumonia type: due to unspecified organism Laterality: unspecified laterality Lung location: unspecified part of lung Qualified Code: B99.9 - Unspecified infectious disease Additional Impressions: Acute on chronic respiratory failure with hypoxia and hypercapnia Substance abuse Disposition: ADMITTED TO HOSPITAL Discharge Condition All VS Reviewed: Yes Condition: Critical Referrals: [facility] Crit Care Except Billable Proc Time Spent: 75-104 minutes Services Performed: Patient management by me, Time spent at bedside, Reviewing test results, Reviewing imaging, Discussing patient care, Documentation in record Scribe Attestation Portion of this note were transcribed by Adele Soares. I, Dr. Rivera, personally performed the history, physical exam, and medical decision-making: I reviewed and confirmed the accuracy for the information in the transcribed note. Signed by: angel Bonilla, 11/07/16 2100 copies to: [facility] Carlos Rivera MD Nov 07, 2016 15:10 Adele Soares Nov 07, 2016 15:18
[2016-11-07] MEDS ORDERED: Albuterol 2.5 mg/3 mL Inhalation Solution NEB ONE (15:25)
--- NOTE | 2016-11-07 16:59 | DRSVH ---
PROCEDURE: CT BRAIN WITHOUT CONTRAST ([id number]) INDICATIONS: falls TECHNIQUE: Noncontrast 4.5 mm thick angled axial sections acquired from the foramen magnum to the vertex, with c oronal reformats. COMPARISON: [facility], CT, CT BRAIN WO CON, 07/08/2016, 12:40. FINDINGS: Image quality: Excellent. CSF spaces: Basal cisterns are patent. No extra-axial fluid collections. The ventricles are symmet primitivo in size and shape. Brain: No intracranial bleeds or masses. There is cerebral volume loss for age, with resultant vent ricular and sulcal prominence. There are periventricular and deep white matter chronic small vessel ischemic changes. Encephalomalacia is redemonstrated within the right parieto-occipital lobe consiste nt with old infarct. There is intracranial internal carotid artery atherosclerosis. Skull and face: Calvarium and visualized facial bones appear intact, without suspicious lesions. Sinuses: Visualized sinuses and mastoids are clear. IMPRESSION: 1. No acute intracranial findings. 2. Mild findings likely associated with chronic microvascular ischemic changes and old left parieto-o ccipital infarct. Dictated by: Penelope Granados M.D. on 11/07/2016 at 16:55 Approved by: Penelope Granados M.D. on 11/07/2016 at 16:58
--- NOTE | 2016-11-07 17:08 | DRSVH ---
PROCEDURE: CT CERVICAL SPINE WITHOUT CONTRAST ([id number]) INDICATIONS: falls TECHNIQUE: Noncontrast 3 mm thick sections acquired from the skull base to the T4 level. Sagittal and coronal r eformats were then constructed. For radiation dose reduction, the following was used: automated exp osure control, adjustment of mA and/or kV according to patient size. COMPARISON: [facility], CR, XR CHEST 2VW, 11/03/2016, 12:23. [facility], CT , CT CHEST WO CON, 03/21/2016, 13:28. FINDINGS: Image quality: Motion artifact limits evaluation. Bones: No acute fracture dislocation of the cervical spine. Endplate depression is present at T4 which is only partially characterized on this limited view of th e thoracic spine. This compression deformity was not present on the comparison chest CT dated 03/21/16 . Soft tissues: Prevertebral soft tissues are normal in thickness. No paravertebral hematomas. No ap ical pneumothoraces. There is extensive interlobular septal thickening with groundglass opacities thr oughout the bilateral pulmonary apices consistent with a "crazy. This finding spares the periphery of the lung. IMPRESSION: 1. No acute cervical spine injury. 2. Superior endplate depression at T4 which is new when compared with the prior cross-sectional study dated 03/21/16. The acuity of this finding is unknown. However, if the patient endorses focal pain in this region, acute compression deformity could be suspected. If further characterization is warrante d, noncontrast MRI of the cervicothoracic region may be helpful. 3. "Crazy paving" pattern within the pulmonary apices bilaterally. There is a broad differential for this finding which includes pulmonary edema, ARDS, pulmonary alveolar proteinosis, acute interstitial pneumonia, and bacterial pneumonia. Dictated by: Penelope Granados M.D. on 11/07/2016 at 17:00 Approved by: Penelope Granados M.D. on 11/07/2016 at 17:07
--- NOTE | 2016-11-07 17:36 | DRSVH ---
PROCEDURE: X-RAY CHEST ONE VIEW, PORTABLE ([id number]) INDICATIONS: post right subclavian line TECHNIQUE: One view of the chest was acquired. COMPARISON: [facility], CR, XR CHEST 1VW (PORTABLE), 11/07/2016, 16:16. FINDINGS: Surgical changes and devices: A central venous catheter is projected over the SVC. Lungs and pleura: Diffuse pulmonary radiopacities are redemonstrated, increased in extent when compar ed with the study from earlier today. Mediastinum: Mediastinal contours appear normal. Heart size is normal. Bones and chest wall: No suspicious bony lesions. Overlying soft tissues appear unremarkable. IMPRESSION: New central venous catheter. Increased bilateral pulmonary radiopacities. Dictated by: Penelope Granados M.D. on 11/07/2016 at 17:34 Approved by: Penelope Granados M.D. on 11/07/2016 at 17:34
[2016-11-07 17:38] LABS: BASOPHILS % (AUTO) 0.1 % (0-3); EOSINOPHILS % (AUTO) 0.2 % (0-5); MONOCYTES % (AUTO) 3.8 % (4-12); Mean Corpuscular Hemoglobin 23.8 pg (27.0-35.0); Mean Corpuscular Volume 77.6 fL (81-100); NEUTROPHILS % (AUTO) 86.9 % (40-74); Platelet Count 304 bil/L (150-400)
[2016-11-07] MEDS ORDERED: levoFLOXacin Inj 750 MG in IV Premix 1 EACH IV ONE (18:05)
[2016-11-07] MEDS ORDERED: Piperacillin-Tazo 3.375 Gm Inj 3.375 GM in Dextrose 5% Minibag Plus 50 ML IV ONE (18:05)
[2016-11-07] MEDS: 0.9% Sodium Chloride 1,000 ML IV SCH ×2 (18:13→20:12)
[2016-11-07 18:27] LABS: COLOR,URINE DARK YELLOW (YELLOW)
[2016-11-07 18:28] LABS: APPEARANCE,URINE HAZY (CLEAR,HAZY); OCCULT BLOOD,URINE NEGATIVE (NEGATIVE); PH,URINE 5.5 (5.0-8.0); UROBILINOGEN,URINE NORMAL (NORMAL)
[2016-11-07 18:36] LABS: Magnesium 1.8 mg/dL (1.6-2.6)
--- NOTE | 2016-11-07 19:17 | ABG ---
DateTimeAnalyzed 19:06:00 -_ pH ____7.336 - 7.350 7.450 pCO2 ___49.2__ -mmHg 35.0 45.0 pO2 ___59.4__ -mmHg 69.0 116 HCO3- ___25.6__ -mmol/L 22.0 26.0 ABE ___-0.0__ -mmol/L -2.0 2.0 tHb ___10.5__ -g/dL O2Hb ___83.9__ -% COHb ____2.7__ -% MetHb ____1.0__ -% sO2 ___87.1__ -% FIO2 ___40.0__ -% Pressure_Support ___14.0__ -cmH2O PEEP ____6.0__ -cmH2O Set_RR ___14.0__ -b/min Drawn By blf - Date/Time Notified____ 19:16:00 -_ Spontaneous_RR ___17.0__ -b/min Oxygen Device 1 ____BIPAP - Notified By blf - Notified Whom ___DR. CERVANTES - B 762 -mmHg tO2 ___12.4__ -Vol% OrderingPhysicianInitials CR - Dudley test _Positive -
[2016-11-07] MEDS ORDERED: Propofol 10,000 mCg/mL 100 mL Inj ONE (19:33)
--- NOTE | 2016-11-07 20:27 | DRSVH ---
PROCEDURE: X-RAY CHEST ONE VIEW, PORTABLE ([id number]) INDICATIONS: POST INTUBATION TECHNIQUE: One view of the chest was acquired. COMPARISON: [facility], CR, XR CHEST 1VW (PORTABLE), 11/07/2016, 17:09. FINDINGS: Surgical changes and devices: The patient has been intubated and the endotracheal tube is approximate ly 2 cm above the tu. The central venous catheter is unchanged. Lungs and pleura: Diffuse pulmonary opacities are unchanged. Mediastinum: Mediastinal contours appear normal. Heart size is normal. Bones and chest wall: No suspicious bony lesions. Overlying soft tissues appear unremarkable. IMPRESSION: Status post intubation with the endotracheal tube approximately 2 cm above the tu. Co nsider retracting the endotracheal tube approximately 2 cm. Dictated by: Penelope Granados M.D. on 11/07/2016 at 20:22 Approved by: Penelope Granados M.D. on 11/07/2016 at 20:25
[2016-11-07] MEDS ORDERED: 0.9% Sodium Chloride 1,000 ML IV SCH (21:20)
--- NOTE | 2016-11-07 21:20 | ABG ---
DateTimeAnalyzed 21:17:00 -_ pH ____7.270 - 7.350 7.450 pCO2 ___52.3__ -mmHg 35.0 45.0 pO2 258 -mmHg 69.0 116 HCO3- ___23.2__ -mmol/L 22.0 26.0 ABE ___-3.3__ -mmol/L -2.0 2.0 tHb ____9.8__ -g/dL O2Hb ___96.4__ -% COHb ____2.2__ -% MetHb ____1.0__ -% sO2 ___99.6__ -% FIO2 __100.0__ -% PEEP ____5.0__ -cmH2O Vt __450.0__ -L Drawn By blf - Date/Time Notified____ 21:20:00 -_ Spontaneous_RR ___22.0__ -b/min A/C ___18.0__ - Oxygen Device 1 VENTILATOR - Notified By blf - Notified Whom ___dr. zheng - B 761 -mmHg tO2 ___13.9__ -Vol% OrderingPhysicianInitials CR - Dudley test _Positive -
[2016-11-07] MEDS ORDERED: Albuterol 1.25 mg/3 mL Inhalation Solution NEB PRN (21:25)
[2016-11-07] MEDS: Propofol Inj 1,000,000 MCG in IV Premix 1 EACH IV SCH (21:36)
[2016-11-07 22:23] LABS: Magnesium 1.5 mg/dL (1.6-2.6)
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
[2016-11-08] VITALS (10 sets, daily range): BP systolic 106–142; BP diastolic 56–68; PULSE 69–80; RESP 20–21; O2SAT 91–100
[2016-11-08] MEDS: 0.9% Sodium Chloride 1,000 ML IV SCH ×4 (00:36→20:05)
[2016-11-08] MEDS: Propofol Inj 1,000,000 MCG in IV Premix 1 EACH IV SCH ×7 (00:36→23:15)
[2016-11-08] MEDS: Chlorhexidine 0.12% 15 mL Oral Solution MT SCH ×6 (00:49→20:05)
[2016-11-08] MEDS: MethylprednisoLONE Sodium Succinate 40 mg/mL Inj IVPUSH SCH ×3 (00:49→16:52)
[2016-11-08] MEDS ORDERED: Albuterol-Ipratropium 3 mL Inhalation Solution NEB SCH (02:00)
[2016-11-08] MEDS ORDERED: Mag Sulf 4 Gm/100 mL IV Premix (Mag < 1.6 & Creat < 2) IV ONE (02:15)
--- NOTE | 2016-11-08 02:38 | NUR ---
CCU Admission Pt arrived from ER to CCU # 2017 approx at 2330. Pt intubated and sedated. Pt tolerating ventilator settings well. Propofol infusing for sedation. Unable to obtain Hx as pt intubated and sedated. No family available at this time. Hx obtained from previous visits. Received new orders regarding insulin, magnesium, and IVF (please refer to paper chart for further details). Pressure ulcer prevention protocol initiated due to Vipul score =10. No skin issues at this time.
[2016-11-08] MEDS: Piperacillin-Tazo 3.375 Gm Inj 3.375 GM in Dextrose 5% Minibag Plus 50 ML IV SCH ×3 (02:54→17:42)
[2016-11-08] MEDS: Albuterol-Ipratropium 3 mL Inhalation Solution NEB SCH ×5 (04:21→19:47)
[2016-11-08] MEDS: Insulin REGULAR SS Low-Dose SUBQ SCH ×3 (05:53→17:01)
--- NOTE | 2016-11-08 05:53 | PCM.CONPHA ---
Subjective Reason for Pharmacy Consult: Vancomycin Dosing Assessment/Plan Assessment/Plan Pharmacy Kinetic Dosing Vancomycin Indication: Sepsis, pneumonia Vanc goal trough: 15-20 mcg Pt wt: 94.7 kg Other ABX: Zosyn, Levaquin SCr: 0.93 WBC: 22.3, afebrile Cultures: Blood pending Assessment/Plan: - Loading dose of vancomycin 1,500mg given in ED. -Will schedule vancomycin to 1,000 mg Q12H. -Will schedule trough level to be drawn on 11/09/16 @1800. Pharmacy appreciates consult and will continue to monitor. Thanks, Geovanny Beauchamp, PharmD Geovanny Beauchamp Nov 08, 2016 05:53
[2016-11-08 06:15] LABS: BASOPHILS % (AUTO) 0.1 % (0-3); EOSINOPHILS % (AUTO) 0.2 % (0-5); MONOCYTES % (AUTO) 1.1 % (4-12); Mean Corpuscular Hemoglobin 23.7 pg (27.0-35.0); Mean Corpuscular Volume 79.6 fL (81-100); NEUTROPHILS % (AUTO) 93.8 % (40-74); Platelet Count 256 bil/L (150-400)
[2016-11-08] MEDS ORDERED: Vancomycin Inj 1,000 MG in IV Premix 1 EACH IV SCH (06:30)
[2016-11-08 06:31] LABS: Magnesium 3.2 mg/dL (1.6-2.6)
--- NOTE | 2016-11-08 06:52 | NUR ---
Respiratory Pt tolerating vent settings well. VSS. No overt complications noted.
[2016-11-08] MEDS ORDERED: Vancomycin Dose per Pharmacist XX SCH (08:30)
--- NOTE | 2016-11-08 11:31 | NUR ---
Wound Care [facility] Attempted to assess patient per pressure ulcer protocol, however patient very restless at time of arrival. RN requests wound services return later to assess patient when she is more calm.
--- NOTE | 2016-11-08 13:37 | NUR ---
NUTRITION ASSESSMENT Assess: 56 YO F admitted to CCU with COPD exacerbation, sepsis, and PNA requiring mechanical ventilation. SBT planned today. PMHx: Acute on chronic respiratory failure, desquamated interstitial pneumonia, tobacco, psychiatric disorder, HLD, opiate abuse, COPD, depression, asthma, anxiety, influenza A, PTSD. LABS: Reviewed. Glu 154, Ca 7.6, Mg 3.2, Alb 2.7, PAB 9 MEDICATIONS: Reviewed. Insulin, Solu-medrol, Propofol DIET: NPO. GI: No BM noted. SKIN: Wound eval pending. ANTHROPOMETRICS: Current Wt: 94.7 kg BMI: 35.8 kg/m2, Admit Wt: 94.7 kg, IBW: 54.5 kg. ESTIMATED NEEDS: VENT/BMI Calories: 7643-6671 kcal/day (20-22 kcal/kg BW) Protein: 82-98 g/day (1.5-1.8 g/kg/d IBW) NUTRITION DIAGNOSIS: 1) Inadequate oral intake related to decreased ability to consume sufficient energy as evidenced by NPO/Vent status. INTERVENTION: 1) If pt unable to be extubated, recommend nutrition support in the next 48 hours. MONITOR/EVALUATE: NPO/Vent status, GI, nutrition support, labs, nutrition status, POC. Follow per high nutrition risk guidelines.
--- NOTE | 2016-11-08 14:33 | NUR ---
Wound Care [facility] Patient more calm this afternoon and able to complete skin assessment. Seen with RN for pressure ulcer protocol. Patient using CCU ISABELL bed with heels floated. Nursing staff turning q2 hours. Skin assessment reveals intact skin with multiple small scabbed areas to arms. No pressure related redness or breakdown noted. Recommend continued q2 hour turning, use of ISABELL bed, and keeping heels floated. Please reconsult wound care services if further needs arise.
--- NOTE | 2016-11-08 16:33 | NUR ---
Remains on vent support, desaturations noticed with any suctioning, repositioning, or otherwise stimulation. Propofol infusion rate increased after multiple repeated doses for agitation. Vitals signs stable, sinus rhythm on tele, mod. UOP via cruz cath. No attempts at PS trials, noted to be severely agitated when sedation lightened. Mother updated by phone, has called several times today.
[2016-11-08] MEDS ORDERED: levoFLOXacin Inj 750 MG in IV Premix 1 EACH IV SCH (18:00)
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
[2016-11-08] MEDS: Famotidine Inj 20 MG in IV Premix 1 EACH IV SCH (20:05)
--- NOTE | 2016-11-08 20:25 | CONS ---
[address] [address] CONSULTATION REPORT PATIENT: JONO RODNEY : 1960 MR#: [id number] ADMIT: 11/07/2016 JOB ID: [id number] DATE OF SERVICE: 11/08/2016 REASON FOR CONSULTATION: Pulmonary infiltrates with respiratory failure. I thank Dr. Ye for this timely consult. HISTORY OF PRESENT ILLNESS: The patient is an unfortunate, 56-year-old woman who is known to me from multiple prior medical admissions. Back in the period 2013 and 2014, the patient had a long series of admissions for severe soft tissue infections related to intramuscular injections of heroin and methamphetamine. This resulted in many, many incision and drainages of abscesses in her proximal thighs and over her deltoids. Starting in late 2014, the patient was able to break free of her heroin and meth problems, but then in early 2015 developed unexplained shortness of breath and bilateral ground-glass infiltrates. A large workup for infection was undertaken, but there was no answer and the patient went home in September 2015 with oxygen. She continued to have a great deal of problems with shortness of breath and profound desaturation and, for that reason, was readmitted back in the spring. 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 This is an unusual form of interstitial pneumonitis usually related to smoking. After stopping cigarette smoking and starting some steroids, the patient did much, much better, but then unfortunately relapsed with respect to her cigarette smoking and was readmitted in May/June 2016 with worsening shortness of breath. That admission was in May. Subsequently, the patient was readmitted briefly in June and at that time was doing fairly well from a respiratory standpoint. In August of this year, the patient was admitted with worsening respiratory symptoms and was found to have both influenza as well as pneumococcal pneumonia. This was treated appropriately and the patient was discharged. During that admission, the diagnosis of COPD was attached to her chart, but I am not sure why as we had a tissue biopsy positive for desquamative interstitial pneumonitis from only a few months prior. In any event, at the conclusion of her August 2016 admission, the patient was doing relatively well and was sent home with low-flow home nasal oxygen as well as a tapering dose of steroids. The patient was readmitted yesterday, November 07, with profound hypoxia. The patient had multiple falls and developed some right hip pain. Because of this fall, the patient was brought to the ED with right hip pain, but it was found that her O2 sat was down to 30% and only improved to about 50 after arrival in the ED. She was placed on a non-rebreather mask and then eventually required intubation for acute respiratory failure. The patient was subsequently admitted to the ICU where she remains. When I interviewed the patient this afternoon, she was both intubated and sedated but did rales with a great deal of stimulation and was able to answer just a few very quick questions before she would drift often and require a great deal more stimulation. The patient tells me that up to her admission yesterday, she was not having fevers, chills or productive cough. She denies that her shortness of breath was worse than baseline up until apparently about the time of her admission. She states that she has relapsed with respect to her cigarette smoking. She denies nausea or vomiting. Beyond that, I am not able to get any more history as she really is sedated sufficiently that no additional history can be obtained. PAST MEDICAL HISTORY: 1. 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 2. Ongoing cigarette smoking which has once again relapsed. 3. Type 2 diabetes. 4. Heroin and are obtained. 5. Polysubstance abuse currently receiving methadone for heroin addiction. 6. History of MRSA. 7. History of CVA 2013. 8. History of multiple soft tissue abscesses. SOCIAL HISTORY: The patient tells me today that she has not been using heroin or meth recently, though she has relapsed with respect to cigarette smoking. She is not a consumer of alcohol. FAMILY HISTORY: Not available today as basically the patient just cannot stay awake long enough to answer questions. In terms of my prior consults on the patient in the past, she did state that no one in her 1st degree relatives has a history of tuberculosis. REVIEW OF SYSTEMS: Basically impossible as the patient is intubated and sedated. As stated above, I was able to keep her awake for a few seconds and she denied fevers, chills, or productive cough. PHYSICAL EXAMINATION: Reveals an intubated, sedated woman in no distress apparently. She is afebrile and has been since admission. Temp 37.2, pulse 73, respiratory rate 20, blood pressure 138/66, she is saturating 91% but on 60% and 8 of PEEP, unfortunately. The patient has no evidence of head trauma or temporal wasting. She will open her eyes and she has no conjunctival or scleral abnormalities. Her nose is normal. Oroendotracheal tube, orogastric tube in good position. Neck without adenopathy or JVD. Lungs are notable for coarse rhonchi bilaterally, perhaps right base more than left. Cardiac tones: Regular rate and rhythm and I do not appreciate a murmur this afternoon. Patient's abdomen is slightly distended, soft and entirely nontender without organomegaly or ascites. A Mckeon catheter is present. The patient has numerous small almost eschars on her upper extremities and it is unclear what the nature of these lesions is. There is no surrounding inflammation or purulence associated with these and they appear almost vascular in nature. The patient does have a Mckeon catheter. There is no suprapubic distention. Her shoulders and proximal thighs have innumerable scars secondary to debridements caused by soft tissue infections in 2014 and prior. The lower portions of her legs are unaffected by this process and without cellulitis or edema. Her feet are reasonably well perfused and there are palpable pulses there. Neurologically, the patient appears intact and the nurse's report she can move all four though I did not observe that in this heavily sedated ICU-bound woman. No skin rashes noted and the patient has a normal thyroid. LABORATORIES: Include white count was 22,000 on admission. It is now down to 17. There is a modest left shift, 94% segs right now but she is on steroids, creatinine 0.77. LFTs normal except ALT 33. No procalcitonin has been done. Toxicology on this admission positive for amphetamines, positive for methadone which, of course, we know she takes though she did deny using that recently. Urine without white cells. The patient's hep C is positive dating back to 2014 and she has strongly positive viral load. Her hep C genotype is 1A. Micro studies from this admission negative blood cultures, sputum with minimal purulence, only a few white cells, and no positive culture yet. MRSA screen is pending. IMAGING: Was carefully reviewed on the view screen and I compared it to two older films. She has a chest x-ray now with bilateral infiltrates, but these are not a whole lot different than ones from a year ago, and I see nothing I would think is an acute new infiltrate. IMPRESSION: This is an extremely complex case of a woman who until about a year and a half ago was doing a great deal of intramuscular heroin and meth and suffering many, many soft tissue infections. She was then able to quit using drugs at least for a sustained period of time but developed dramatic shortness of breath with bilateral infiltrates which proved on biopsy to be desquamative interstitial pneumonitis. Following quitting smoking and starting some steroids in the middle of 2015, the patient improved dramatically only to have troubles with relapsing cigarette smoking, worsening respiratory function, and more recently an admission for pneumococcal pneumonia in August. On this admission, the patient reportedly fell and suffered some severe hip pain which led her to medical attention and the discovery that she was profoundly hypoxemic. She has now been readmitted to the intensive care unit. The outstanding question here is whether she has purely relapse of her desquamative interstitial pneumonitis caused by resumption of cigarette smoking and ending steroids and/or whether there is some additional superimposed infection. At this point, I am unconvinced about infection though I am, of course, worried about it because of her elevated white count with left shift. It is certainly possible that all we see on her chest x-ray is, however, the desquamative interstitial pneumonitis, and that there may not be any infection. RECOMMENDATIONS: 1. I agree with the blood cultures and MRSA screen. 2. I would go ahead and stop the vancomycin while we continue her on levofloxacin and Zosyn briefly while we await our diagnostic studies. 3. Procalcitonin has been ordered on this patient. 4. I also went ahead and ordered Legionella and urine pneumococcal antigens. 5. I have also ordered a multiplex respiratory PCR. 6. Will continue to closely observe this patient and her progress, but I suspect a short course of antibiotics will be all that is needed and that her antibiotics can be further narrowed in the near future. 7. We must stress that the patient absolutely must refrain from cigarette smoking lest she continue to trigger life-threatening recurrences of her desquamative interstitial pneumonitis.
[2016-11-09] VITALS (13 sets, daily range): BP systolic 140–178; BP diastolic 1–74; PULSE 72–78; RESP 20–22; O2SAT 91–96
[2016-11-09] MEDS: Albuterol-Ipratropium 3 mL Inhalation Solution NEB SCH ×7 (00:19→23:51)
[2016-11-09] MEDS: Propofol Inj 1,000,000 MCG in IV Premix 1 EACH IV SCH ×4 (02:27→23:33)
[2016-11-09] MEDS: Piperacillin-Tazo 3.375 Gm Inj 3.375 GM in Dextrose 5% Minibag Plus 50 ML IV SCH ×3 (03:00→19:03)
[2016-11-09] MEDS: 0.9% Sodium Chloride 1,000 ML IV SCH ×3 (04:06→20:35)
[2016-11-09] MEDS: Chlorhexidine 0.12% 15 mL Oral Solution MT SCH ×6 (04:34→20:35)
--- NOTE | 2016-11-09 04:42 | ABG ---
DateTimeAnalyzed 04:39:00 -_ pH ____7.368 - 7.350 7.450 pCO2 ___42.7__ -mmHg 35.0 45.0 pO2 ___69.9__ -mmHg 69.0 116 HCO3- ___24.0__ -mmol/L 22.0 26.0 ABE ___-0.8__ -mmol/L -2.0 2.0 tHb ___10.4__ -g/dL O2Hb ___91.0__ -% COHb ____1.5__ -% MetHb ____0.9__ -% sO2 ___93.2__ -% FIO2 ___60.0__ -% PRVC 20 - PEEP ____5.0__ -cmH2O Set_RR ___20.0__ -b/min Vt __400.0__ -L Drawn By MM - Date/Time Notified____ 04:42:00 -_ Spontaneous_RR ___24.0__ -b/min Oxygen Device 1 VENTILATOR - Notified Whom ___DR ALCALA - B 752 -mmHg tO2 ___13.3__ -Vol% Dudley test N/A -
[2016-11-09 05:37] LABS: BASOPHILS % (AUTO) 0 % (0-3); EOSINOPHILS % (AUTO) 0 % (0-5); MONOCYTES % (AUTO) 3.5 % (4-12); Mean Corpuscular Hemoglobin 23.7 pg (27.0-35.0); Mean Corpuscular Volume 79.6 fL (81-100); NEUTROPHILS % (AUTO) 91.3 % (40-74); Platelet Count 248 bil/L (150-400)
[2016-11-09] MEDS: Insulin REGULAR SS Low-Dose SUBQ SCH ×3 (05:38→11:49)
--- NOTE | 2016-11-09 07:08 | PCM.PNMED ---
Subjective Date of Service Nov 08, 2016 Subjective Note: This is a redictation of the note from 11/08/2016 Pt was admitted due to hypoxemia. Currently answering questions with head shakes and blinking once for yes. Last meth use was yesterday. Pt acknowledges that she could have overdosed her methadone as well. Exam Vital Signs Vital Sign - Last Date Time Temp Pulse Resp B/P Pulse Ox O2 Delivery O2 Flow Rate FiO2 11/09/16 04:30 36.9 78 21 155/72 94 Mechanical Ventilator 60 11/07/16 23:08 8 Intake and Output 11/08/16 11/08/16 11/09/16 Cumulative From/Thru 15:00 23:00 07:00 11/07/16 15:10 - 11/09/16 06:38 Intake Total 1982 ml 2483 ml 00038 ml Output Total 925 ml 650 ml 2725 ml Balance 1057 ml 1833 ml 7521 ml Intake IV Total 1982 ml 2483 ml 54980 ml Output Urine Total 375 ml 350 ml 1625 ml Gastric Drainage Total 550 ml 300 ml 1100 ml # Bowel Movements 0 0 0 Exam Gen: alert and communicating HEENT: no jvd, supple Cardio: RRR no m/r/g Resp: course breath sounds bilaterally; crackles; Abd; Non-tender, +bs Ext: mild edema neuro: pupils reactive psych: alert IVs and Medications Medications Reviewed: Medications were reviewed in detail Lab and Diagnostics Result Diagram: 11/09/1651911/09/16519 Assessment & Plan 56-year-old female who suffered a ground-level fall question of a second to hypoxemia with observed saturations on 30% 1. Acute on chronic hypoxemic respiratory failure; present medicines; ongoing -Patient has underlying history of desquamative interstitial pneumonia and COPD ; no hypercarbia noted on admission -Patient was vented due to severe hypoxemia doing better this morning -Continue current vent settings and treat underlying infection 2. Bilateral pneumonia, concern for hcap; present on admission, ongoing -Patient presents with diffuse pulmonary opacities chest x-ray, and white count of 22,000; noted that the x-ray may be complicated by underlying lung disease -Patient was started on vancomycin, Zosyn, levofloxacin -We will continue Zosyn and levofloxacin at this time of drop vancomycin -PCR panel is negative, sputum cultures ordered, streptococcal antigen ordered, blood cultures ordered 3. COPD; present on admission; ongoing -Patient has a history of COPD however her blood gas did not show any exaggerated signs of hypercapnia -Patient started on Solu-Medrol 60 every 8 hours; will continue -Duonebs every 4 hours through the vent 4. History of methadone/heroin use; ongoing -Patient states that she could have overdosed on her methadone however this would have likely caused hypercapnia which was not seen -We will monitor for withdrawal 5. Anxiety/depression; is on medicine; stable -Patient is on buspirone and fluoxetine outpatient; will start these when available 6. Type II diabetes; present on medicine; stable -Patient is on metformin at home -A1c is 6.8 -Patient placed on low correction on the admission; will reconsider increasing this GI Prophylaxis: Famotidine DVT prophylaxis: Lovenox Disposition: Patient will likely undergo SVT tomorrow, and if doing well attempt extubation. VTE Mechanical Devices: Intermittant Pneumatic CD Giovanny Ahn DO Nov 09, 2016 07:08
--- NOTE | 2016-11-09 07:28 | PCM.PNMED ---
Subjective Date of Service Nov 09, 2016 Subjective Overnight the patient did really well without much agitation. She has remained on 60% O2 due to hypoxemia. Patient arousable and denies pain or fever. Exam Vital Signs Vital Sign - Last Date Time Temp Pulse Resp B/P Pulse Ox O2 Delivery O2 Flow Rate FiO2 11/09/16 04:30 36.9 78 21 155/72 94 Mechanical Ventilator 60 11/07/16 23:08 8 Intake and Output 11/08/16 11/08/16 11/09/16 Cumulative From/Thru 15:00 23:00 07:00 11/07/16 15:10 - 11/09/16 06:38 Intake Total 1982 ml 2483 ml 63253 ml Output Total 925 ml 650 ml 2725 ml Balance 1057 ml 1833 ml 7521 ml Intake IV Total 1982 ml 2483 ml 04857 ml Output Urine Total 375 ml 350 ml 1625 ml Gastric Drainage Total 550 ml 300 ml 1100 ml # Bowel Movements 0 0 0 Exam Gen: alert and communicating; HEENT: no jvd, supple, central line and right subclavian Cardio: RRR no m/r/g; decreased breath sounds due to habitus Resp: course breath sounds bilaterally; crackles Abd; Non-tender, +bs, nondistended, no rash or bruising Ext: mild edema, not following commands to move extremities neuro: pupils reactive, moving head purposefully psych: alert, somewhat somnolent IVs and Medications Medications Reviewed: Medications were reviewed in detail Lab and Diagnostics Result Diagram: 11/09/16 0520 11/09/16 0520 X-Rays, CTs and MRIs Cervical Spine CT 1. No acute cervical spine injury. 2. Superior endplate depression at T4 which is new when compared with the prior cross-sectional study dated 03/21/16. The acuity of this finding is unknown. However, if the patient endorses focal pain in this region, acute compression deformity could be suspected. If further characterization is warranted, noncontrast MRI of the cervicothoracic region may be helpful. 3. "Crazy paving" pattern within the pulmonary apices bilaterally. There is a broad differential for this finding which includes pulmonary edema, ARDS, pulmonary alveolar proteinosis, acute interstitial pneumonia, and bacterial pneumonia. Dictated by: Penelope Granados M.D. on 11/07/2016 at 17:[address] 1. No acute intracranial findings. 2. 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 Dictated by: Penelope Granados M.D. on 11/07/2016 at 16:55 Chest X-ray IMPRESSION: New central venous catheter. Increased bilateral pulmonary radiopacities. Dictated by: Penelope Granados M.D. on 11/07/2016 at 17:34 Chest X-ray IMPRESSION: Status post intubation with the endotracheal tube approximately 2 cm above the tu. Consider retracting the endotracheal tube approximately 2 cm. Dictated by: Penelope Granados M.D. on 11/07/2016 at 20:22 Assessment & Plan 56-year-old female who suffered a ground-level fall question of a second to hypoxemia with observed saturations on 30% 1. Acute on chronic hypoxemic respiratory failure; present medicines; ongoing -Patient has underlying history of desquamative interstitial pneumonia and COPD ; no hypercarbia noted on admission -Patient was vented due to severe hypoxemia; hypoxemia persists -Decreasing FiO2 by 10% dropped O2-sat by 4%; vent weaning may take a couple days 2. Suspected bilateral pneumonia, concern for hcap; present on admission, ongoing -Patient presents with diffuse pulmonary opacities chest x-ray, and white count of 22,000; noted that the x-ray may be complicated by underlying lung disease -CXR unchanged -Continue Zosyn and changed levofloxacin to doxy due to QTc prolongation -PCR panel is negative -Strep ag neg; blood cultures show no growth at 24hrs, sputum pend; MRSA still pending -Procalcitonin decreaseing from 0.42 --> 0.2 3. Idiopathic pulmonary fibrosis with reported COPD; present on admission; ongoing -Patient has a reported history of COPD, however her blood gas did not show any exaggerated signs of hypercapnia; questionable exacerbation -Confirmed IPF by biopsy: desquamative interstitial pneumonia -CXR does not appear to be hyperinflated and diaphragms are not flat -On 40mg prednisone daily outpatient -Patient started on Solu-Medrol 60 every 8 hours; will increase to 125mg Q6hr -Duonebs every 4 hours through the vent 4.History of methadone/heroin/methamphetamine abuse; ongoing -Patient states that she could have overdosed on her methadone however this would have likely caused hypercapnia which was not seen -Starting Ativan 1mg Q6hr for questionable methamphetamine withdrawal 5 Anxiety/depression; is on medicine; stable -Patient is on buspirone and fluoxetine outpatient -Restart fluoxetine 6 Type II diabetes; present on medicine; stable -Patient is on metformin at home -A1c is 6.8 -Patient placed on low correction on the admission; will reconsider increasing this GI Prophylaxis: Famotidine DVT prophylaxis: Lovenox Disposition: At this time its unclear whether patient developed such acute hypoxia with concern for methamphetamine induced hypoxia on already chronic and possibly worsening idiopathic pulmonary fibrosis. Patient is started on Ativan today. Attempts to wean the vent have been unsuccessful as patient cannot tolerate reductions in FiO2. Pulmonary is seen the patient and will adjust vent settings as necessary. No timetable for extubation. Pain Evaluation: Adequate Pain Control GI Prophylaxis: H2 sonu VTE Prophylaxis: Sub-Q Enoxaparin VTE Mechanical Devices: Intermittant Pneumatic CD Resuscitation Status: CPR: Attempt Resuscitation Attending Statement Agree with assessment and plan as above - pt seen and separately discussed with resident, Dr. Ahn and ICU team. 40 minutes spent with evaluation and management Giovanny Ahn DO Nov 09, 2016 07:28 Edin Argueta DO Nov 09, 2016 15:09
--- NOTE | 2016-11-09 08:21 | DRSVH ---
PROCEDURE: X-RAY CHEST ONE VIEW, PORTABLE ([id number]) INDICATIONS: vent TECHNIQUE: One view of the chest was acquired. COMPARISON: [facility], CR, XR CHEST 1VW (PORTABLE), 11/07/2016, 19:56. FINDINGS: Surgical changes and devices: ETT tip projects 1.9 cm above the tu and stable positioning of righ t subclavian CVL and nasogastric tube is in place tip traversing the GE junction. Lungs and pleura: Diffuse, widespread bilateral pulmonary interstitial and air space opacities are p resent similar to prior examination Mediastinum: Mediastinal contours appear normal. Heart size is enlarged. Bones and chest wall: No suspicious bony lesions. Overlying soft tissues appear unremarkable. IMPRESSION: Pulmonary edema and/or diffuse bilateral pneumonia redemonstrated. Dictated by: Wei GORE Interpreted: Christiana Cole MD on 11/09/2016 at 8:19 Transcribed by: JEFF on 11/09/2016 at 8:21 Approved by: Christiana Cole M.D. on 11/09/2016 at 16:33
[2016-11-09] MEDS: Famotidine Inj 20 MG in IV Premix 1 EACH IV SCH (08:38)
--- NOTE | 2016-11-09 09:13 | NUR ---
Social Work Note: Screen Note Data& Assessment: EMR reviewed. Rebeca Casarez is a 56 year old female admitted to CCU on 11/07/2016 for respiratory failure and sepsis. Pt has been intubated. Pt has [employer] and [employer] insurance coverage. Pt sees Martha GREENE for primary care. Pt lives in [place] and is independent at baseline. Pt wears oxygen at baseline, historically 2L. Pt was positive for Methadone and Amphetamines per Urine Tox Screen. Pt is known to be current with [facility]. SW to follow up with pt when medically appropriate to confirm current baseline information and complete CD assessment if appropriate. SW to continue to follow. Plan: Pt has required intubation. Anticipated Discharge back home when medically ready. SW to follow up with pt regarding DC planning and CD assessment when appropriate. SW to continue to follow. OSKAR Vee
[2016-11-09] MEDS: MethylprednisoLONE Sodium Succinate 40 mg/mL Inj IVPUSH SCH ×2 (09:30)
--- NOTE | 2016-11-09 11:09 | PROG NOTE ---
[address] [address] PROGRESS NOTE PATIENT: JONO RODNEY : 1960 MR#: [id number] ADMIT: 11/07/2016 JOB ID: [id number] DATE: 11/09/2016 INFECTIOUS DISEASE FOLLOW UP NOTE: REASON FOR FOLLOWUP: Ventilatory dependent respiratory failure of unknown etiology. 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 Following smoking cessation and some steroids, she improved greatly, but since her relapse with respect to her smoking cessation and is now admitted to the hospital with acute respiratory failure which has required intubation and ventilatory support. Overnight the patient has remained critically ill in the ICU requiring aggressive ventilatory support. She continues to be heavily sedated and I was unable to arouse her in any way this morning so there is no additional history from the patient. The case was discussed in great detail during ICU rounds with the ICU attending as well as respiratory therapy and nutrition. PHYSICAL EXAMINATION: Reveals a critically ill woman lying supine in her ICU bed. She is afebrile. Temperature 37, and she has been afebrile since admission. Pulse 74, respiratory rate ventilator dependent. Blood pressure 155/72. She is saturating 91% but requiring 60% FiO2. Examination of the eyes reveals no conjunctivitis. Oral endotracheal tube, orogastric tube in good position. IV lines in good position without evidence of inflammation. Lungs with coarse breath sounds bilaterally. Cardiac tones with a 2/6 murmur which is really heard all the way across the precordium and it is a systolic murmur. Otherwise regular rate and rhythm. The abdomen is soft and without mass and without apparent tenderness. Mckeon catheter is present. There is no skin rash noted and no edema of the extremities. LABORATORIES: Include a white count down to 11,900, platelet count 248,000, 91% segs. Creatinine 0.71. LFTs are normal. Procalcitonin was 0.42 yesterday, 0.2 today. Urinalysis without white cells. Urine Legionella and pneumococcal antigens are negative. Blood cultures are negative. MRSA screen negative. Respiratory viral PCR panel is completely negative. IMAGING: Includes today's chest x-ray which shows continued bilateral infiltrates. The patient's QTc interval was discussed on rounds and it is actually 0.54 which is quite worrisome in this methadone dependent patient and we discussed the need as much as possible to minimize QTc prolonging drugs. IMPRESSION: This unfortunate woman is admitted with respiratory failure and has required re-intubation. It is unclear to me if there is any infection going on or whether this is all an exacerbation of her DIP triggered perhaps by increased cigarette smoking as well as some meth use. At this point, I am leaning towards an non infectious cause for her decompensation but I think we should continue some broad-spectrum antibiotics while we await the final results of all of our cultures. RECOMMENDATIONS: 1. We await the multiple pending cultures and serologies. 2. Yesterday we stopped the vanc and today I would discontinue the levofloxacin while we continue her on Zosyn. 3. Will replace the levofloxacin with doxycycline for today at least which is a safer drug with respect to the QTc interval. 4. Will order a procalcitonin for tomorrow, and if she looks uninfected with continued normalization of the procalcitonin tomorrow, will consider stopping all antibiotics. 5. I agree with Dr. Ye's suggestion that we try very high-dose steroids for a short course in this complex patient.
[2016-11-09] MEDS ORDERED: Sodium Chloride LOK Flush 10 mL Syringe IVFLUSH PRN (14:00)
[2016-11-09] MEDS ORDERED: fentaNYL 2,500 mCg/250 mL Premix IV ONE (15:40)
--- NOTE | 2016-11-09 15:56 | NUR ---
NUTRITION FOLLOW-UP Assess: 56 YO F admitted to CCU with COPD exacerbation, sepsis, and PNA requiring mechanical ventilation. Pt continues to require mechanical ventilation. Verbal order received to begin trophic feeds. PMHx: Acute on chronic respiratory failure, desquamated interstitial pneumonia, tobacco, psychiatric disorder, HLD, opiate abuse, COPD, depression, asthma, anxiety, influenza A, PTSD. LABS: Reviewed. Na 145, Cl 110, Glu 183, Ca 7.9, Albumin 2.8 MEDICATIONS: Reviewed. Insulin, Solu-medrol, Propofol @ 28.2 ml/hr (745 kcal/d) DIET: NPO. GI: No BM noted. SKIN: No pressure injuries noted ANTHROPOMETRICS: Current Wt: 97.2 kg BMI: 36.8 kg/m2, Admit Wt: 94.7 kg, IBW: 54.5 kg. ESTIMATED NEEDS: VENT/BMI Calories: 2743-2988 kcal/day (20-22 kcal/kg BW) Protein: 82-98 g/day (1.5-1.8 g/kg/d IBW) NUTRITION DIAGNOSIS: 1) Inadequate oral intake related to decreased ability to consume sufficient energy as evidenced by NPO/Vent status.---PERSISTS INTERVENTION: 1) Recommend initiation of trophic feeds w/ Pulmocare @ 10 ml/hr x 24 hrs. One pt tolerating, recommend advancing 10 ml q 4 hrs to goal rate of 60 ml/hr to provide 1980 kcal/d, 82 g.d protein, and 1216 ml/d fluid, meeting 100% of est needs. 2) Adjust goal rate based on daily propofol rate. MONITOR/EVALUATE: NPO/Vent status, GI, nutrition support, labs, nutrition status, POC. Follow per high nutrition risk guidelines.
--- NOTE | 2016-11-09 16:21 | PROG NOTE ---
[address] [address] PROGRESS NOTE PATIENT: JONO RODNEY : 1960 MR#: [id number] ADMIT: 11/07/2016 JOB ID: [id number] DATE: 11/09/2016 VENTILATOR FOLLOWUP NOTE: PROBLEM: Hypoxemic hypercarbic respiratory failure. SUBJECTIVE: None. OBJECTIVE: Temperature 37, pulse mid 70s. Respiratory rate 20. Blood pressure 165/71, O2 sat on FiO2 of 60%, PEEP of 5, is 91%. I and O shows 4.7 L in, 1.9 L out. General appearance: Significant patient/ventilator dyssynchrony. Flow volume loop shows collapse of the expiratory airway. PEEP was raised to 9 with some improvement, though still having active use of the abdominal muscles with exhalation. Chest: Few bibasilar crackles. Mid and upper lung vegas are clear anterolaterally. Heart: Heart tones seem normal. Abdomen is soft. Mildly protuberant. Bowel tones present. Extremities: No pedal edema. SCD in place. Arterial blood gases on FiO2 of 60%, PEEP of 5, respiratory rate of 20, tidal volume of 400 shows pO2 of 69, pCO2 of 42, pH 7.36. LABORATORY: Noted, with white count of 11,900, down from 16,800 yesterday, with a significant neutrophilia. Hemoglobin stable at 10.1. Platelet count stable at 248,000. Sodium 145, potassium 4.1, chloride 110, CO2 is 22. BUN stable at 18. Creatinine stable at 0.7. Calcium 7.9, with albumin of 2.8. Magnesium normal at 2.2. Total bilirubin normal at 0.5. AST 26, ALT 29, alkaline phosphatase 109. ASSESSMENT: Upper airway collapse. Likely due to edema and lax muscle. Raised the PEEP to 9 with some improvement, though still not resolution of the problem. We will re-sedate the patient, substituting benzodiazepines for propofol, as the propofol is not particularly working very well and she may be withdrawing from methamphetamines. Will start fentanyl, which she apparently has not been getting. If that is unsuccessful in dealing with relaxation of the upper airway and better patient/ventilator synchrony, then we will have to paralyze her, a decision I would prefer to avoid. PLAN: 1. Vent change PEEP of 9. 2. Fentanyl and Ativan infusions. 3. If patient/ventilator synchrony does not improve, will consider paralysis with cisatracurium.
[2016-11-09] MEDS: MethylprednisoLONE Sodium Succinate 62.5 mg/mL 2 mL Inj IVPUSH SCH ×2 (16:25→20:35)
[2016-11-09] MEDS: LORazepam 100 mg/100 mL NS 100 MG in IV Premix 100 EACH IV SCH (16:27)
[2016-11-09] MEDS: fentaNYL 2,500 mCg/250 mL 2,500 MCG in IV Premix 1 EACH IV SCH (16:28)
[2016-11-09] MEDS: FLUoxetine 4 mg/mL 118 mL Solution PO SCH (16:49)
--- NOTE | 2016-11-09 17:48 | NUR ---
Pt's Mum took pt's keys home with her Pt had keys with her belongings and her Mum, Rebeca came by today and took these home with her. Addendum: 11/09/16 at 1753 by ESPERANZA SANABRIA RN Pt's name is Rebeca, Mum is Li.
[2016-11-09] MEDS ORDERED: Vancomycin Serum Trough XX ONE (18:00)
--- NOTE | 2016-11-09 18:17 | NUR ---
P: Resp, Hemodynamics, Neuro, Nutrition,Skin, Social I,E: Pt remains on the vent and pulmonology has adjusted settings throughout the day. She sat's in the low 90's but does drop into the 80's when she is coughing or agitated. Pt is in SR and BP has been elevated today with sys in the 160s on average. UOP was 450cc this shift. Propofol was adjusted today for her Rass, she varies from -1 to +3. This afternoon she was started on ativan gtt and fentanyl gtt and propofol was stopped. She continues to be agitated at times and has received several bolus doses of ativan. Ativan is currently at 3mg and Fentanyl is at 100mcg. Pt will be starting on tube feeds at 10cc/hr this evening. Pt has some small circular sores on her right arm which are the size of a pencil eraser and are healing. Pt's mother came by today to visit and has left her phone number for us.
[2016-11-09] MEDS: Cisatracurium Inj 200,000 MCG in 0.9% Sodium Chloride-Pha MIX 100 ML IV SCH (19:49)
[2016-11-09] MEDS: Insulin Human REGular Inj 100 UNIT in 0.9% Sodium Chloride-Pha MIX 100 ML IV SCH (19:50)
[2016-11-09] MEDS: Doxycycline Inj 100 MG in Dextrose 5% Minibag Plus 100 ML IV SCH (20:35)
[2016-11-10] VITALS (14 sets, daily range): BP systolic 154–199; BP diastolic 60–86; PULSE 75–117; RESP 20; O2SAT 93–96
[2016-11-10] MEDS: Chlorhexidine 0.12% 15 mL Oral Solution MT SCH ×7 (00:20→23:46)
[2016-11-10] MEDS: MethylprednisoLONE Sodium Succinate 62.5 mg/mL 2 mL Inj IVPUSH SCH ×4 (03:08→21:33)
[2016-11-10] MEDS: Piperacillin-Tazo 3.375 Gm Inj 3.375 GM in Dextrose 5% Minibag Plus 50 ML IV SCH ×3 (03:08→18:30)
[2016-11-10] MEDS: Albuterol-Ipratropium 3 mL Inhalation Solution NEB SCH ×6 (04:52→23:52)
[2016-11-10] MEDS: 0.9% Sodium Chloride 1,000 ML IV SCH ×3 (05:33→21:33)
[2016-11-10 05:35] LABS: Mean Corpuscular Hemoglobin 23.4 pg (27.0-35.0)
[2016-11-10] MEDS: Cisatracurium Inj 200,000 MCG in 0.9% Sodium Chloride-Pha MIX 100 ML IV SCH ×2 (06:03→19:51)
[2016-11-10 06:55] LABS: Magnesium 2.1 mg/dL (1.6-2.6); Phosphorus 3.7 mg/dL (2.5-4.9)
[2016-11-10] MEDS: Propofol Inj 1,000,000 MCG in IV Premix 1 EACH IV SCH ×2 (07:29→15:13)
[2016-11-10] MEDS: Doxycycline Inj 100 MG in Dextrose 5% Minibag Plus 100 ML IV SCH ×2 (07:58→21:32)
[2016-11-10] MEDS: FLUoxetine 4 mg/mL 118 mL Solution PO SCH (08:00)
[2016-11-10] MEDS ORDERED: Furosemide 10 mg/mL 2 mL Inj IVPUSH ONE (08:00)
[2016-11-10 08:32] LABS: BASOPHILS % (AUTO) 0 % (0-3); EOSINOPHILS % (AUTO) 0 % (0-5); MONOCYTES % (AUTO) 2.4 % (4-12); NEUTROPHILS % (AUTO) 91.8 % (40-74)
[2016-11-10] MEDS: fentaNYL 2,500 mCg/250 mL 2,500 MCG in IV Premix 1 EACH IV SCH (09:30)
--- NOTE | 2016-11-10 11:02 | DRSVH ---
PROCEDURE: X-RAY CHEST ONE VIEW, PORTABLE ([id number]) INDICATIONS: vent TECHNIQUE: One view of the chest was acquired. COMPARISON: [facility], CR, XR CHEST 1VW (PORTABLE), 11/09/2016, 5:06. FINDINGS: Surgical changes and devices: Stable position the ETT, nasogastric tube and right subclavian chest po rt. Of note, there is sharp angulation noted involving the mid portion of the CVL as it crosses the undersurface of the clavicle. Lungs and pleura: Diffuse, widespread bilateral pulmonary interstitial and air space opacities are pr esent slightly decreased from prior examination. Mediastinum: Mediastinal contours appear normal. Heart size is normal. Bones and chest wall: No suspicious bony lesions. Overlying soft tissues appear unremarkable. IMPRESSION: Slight decrease in pulmonary edema and/or diffuse bilateral pneumonia. Dictated by: Wei Burden [facility] Interpreted: Sachi Che MD on 11/10/2016 at 11:00 Transcribed by: NANCY on 11/10/2016 at 11:02 Approved by: Sachi Che MD, PhD on 11/10/2016 at 17:02
--- NOTE | 2016-11-10 11:18 | PROG NOTE ---
[address] [address] PROGRESS NOTE PATIENT: JONO RODNEY : 1960 MR#: [id number] ADMIT: 11/07/2016 JOB ID: [id number] DATE: 11/10/2016 INFECTIOUS DISEASE FOLLOWUP NOTE: REASON FOR FOLLOWUP: Ventilator-dependent respiratory failure secondary to DIP and floppy airway syndrome with possible superimposed infection. INTERVAL HISTORY: Recall this is a 56-year-old woman with biopsy-proven DIP who suffered a relapse with respect to her cigarette smoking and methamphetamine use and was admitted with respiratory failure. It was unclear initially whether this was infection or simply related to progression of her interstitial lung disease and possible floppy airways. Today, the patient is both intubated, sedated and paralyzed, so obviously no additional history is available from her. I discussed this case in person with Dr. Ye of the ICU team. PHYSICAL EXAMINATION: Reveals an afebrile woman. Temp 37.1, pulse 77, respiratory rate 20, blood pressure 168/80, saturating 94% on 50% inspired oxygen. She is not responsive obviously, as she is intubated, sedated and paralyzed. Eyes without conjunctivitis. Lungs continue with coarse breath sounds bilaterally. Little change. Cardiac tones: Regular rate and rhythm, with no appreciable murmur. Abdomen: Soft, nontender and, of course, there is no muscle tone in the abdomen, as she is paralyzed. No skin rash noted. LABORATORIES: Include white count 13,900, platelets 266, 92% segs but she is on high-dose steroids. Creatinine 0.58. Procalcitonin yesterday was 0.2. Urine legionella and pneumococcal antigens are negative. MRSA screen negative. Respiratory viral PCR panel negative. Blood cultures negative. IMAGING: Shows continued bilateral infiltrates, which are likely interstitial lung disease. IMPRESSION: This is an extremely unfortunate woman who remains ventilator dependent. Dr. Ye believes she has floppy upper airways perhaps related to steroids and other drugs. She also has biopsy-proven desquamative interstitial pneumonitis, which has probably worsened recently by resumption of cigarette and methamphetamine use. I suspect there is no underlying infection in this case. We are continuing her on Zosyn until we have back another procalcitonin level. PLAN: 1. We are awaiting multiple serologies and cultures but so far, there is no proof of infection. 2. I would continue with the Zosyn in the short term. 3. Procalcitonin will be checked tomorrow morning and if this is negative, I think we will strongly consider discontinuing all antibiotics.
--- NOTE | 2016-11-10 11:22 | ABG ---
DateTimeAnalyzed 11:18:00 -_ pH ____7.273 - 7.350 7.450 pCO2 ___59.1__ -mmHg 35.0 45.0 pO2 ___75.7__ -mmHg 69.0 116 HCO3- ___26.4__ -mmol/L 22.0 26.0 ABE ___-0.7__ -mmol/L -2.0 2.0 tHb ___11.0__ -g/dL O2Hb ___90.0__ -% COHb ____1.7__ -% MetHb ____1.0__ -% sO2 ___92.5__ -% FIO2 ___50.0__ -% PEEP ____9.0__ -cmH2O Set_RR ___20.0__ -b/min Vt __350.0__ -L Drawn By nb - Date/Time Notified____ 11:21:00 -_ Spontaneous_RR ___20.0__ -b/min Oxygen Device 1 VENTILATOR - Notified By NB - Notified Whom DR KENDREGAN - B 753 -mmHg tO2 ___14.0__ -Vol% Dudley test N/A -
--- NOTE | 2016-11-10 13:20 | NUR ---
NUTRITION FOLLOW-UP Assess: 56 YO F admitted to CCU with COPD exacerbation, sepsis, and PNA requiring mechanical ventilation. Pt continues to require mechanical ventilation. Overnight pt was started on Nimbex. Pt without BM since admit - care team aware. PMHx: Acute on chronic respiratory failure, desquamated interstitial pneumonia, tobacco, psychiatric disorder, HLD, opiate abuse, COPD, depression, asthma, anxiety, influenza A, PTSD. LABS: Reviewed. Na 145, Cl 110, Glu 149, Ca 8.1, Prealbumin 13, Albumin 2.8 MEDICATIONS: Reviewed. Insulin, Solu-medrol, Propofol @ 5.6 ml/hr (148 kcal/d), Nimbex DIET: NPO. GI: No BM noted. SKIN: No pressure injuries noted ANTHROPOMETRICS: Current Wt: 100.5 kg BMI: 36.8 kg/m2, Admit Wt: 94.7 kg, IBW: 54.5 kg. ESTIMATED NEEDS: VENT/BMI Calories: 5824-5833 kcal/day (20-22 kcal/kg BW) Protein: 82-98 g/day (1.5-1.8 g/kg/d IBW) NUTRITION DIAGNOSIS: 1) Inadequate oral intake related to decreased ability to consume sufficient energy as evidenced by NPO/Vent status.---PERSISTS INTERVENTION: 1) Recommend advancing Pulmocare 10 ml q 8 hrs to goal rate of 57 ml/hr to provide 1881 kcal/d (2029 kcal/d w/ propofol), 78 g/d protein, and 1165 ml/d fluid, meeting 100% of est calorie needs. 2) Once pt tolerating TF at goal rate, recommend addition of 1 packet if prosource to provide a total or 89 g/d protein, meeting 100% of est protein needs. 3) Adjust goal rate based on daily propofol rate. MONITOR/EVALUATE: NPO/Vent status, GI, nutrition support, labs, nutrition status, POC. Follow per high nutrition risk guidelines.
[2016-11-10] MEDS: LORazepam 100 mg/100 mL NS 100 MG in IV Premix 100 EACH IV SCH (15:38)
--- NOTE | 2016-11-10 15:49 | PCM.PNMED ---
Subjective Date of Service Nov 10, 2016 Subjective Patient required increase sedation last night and initiation of Nimbex. Patient from fighting the vent. Peak pressures were still elevated. ABG today reveals a respiratory acidosis with pH of 7.27, PCO2 59.1, PO2 of 75.7, bicarbonate 26.4; saturation was 92.5% Exam Vital Signs Vital Sign - Last Date Time Temp Pulse Resp B/P Pulse Ox O2 Delivery O2 Flow Rate FiO2 11/10/16 12:29 77 158/74 93 50 11/10/16 12:00 37.2 20 Mechanical Ventilator 11/07/16 23:08 8 Intake and Output 11/09/16 11/09/16 11/10/16 Cumulative From/Thru 15: 23:00 07:00 11/07/16 15:10 - 11/10/16 06:42 Intake Total 1717 ml 2478 ml 17512 ml Output Total 750 ml 600 ml 4075 ml Balance 967 ml 1878 ml 92435 ml Intake Oral 20 ml 20 ml IV Total 1697 ml 2272 ml 40215 ml Tube Feeding 116 ml 116 ml Tube Irrigant 90 ml 90 ml Output Urine Total 450 ml 600 ml 2675 ml Gastric Drainage Total 300 ml 1400 ml # Bowel Movements 0 0 Exam Gen: Sedated HEENT: no jvd, supple, central line and right subclavian Cardio: RRR no m/r/g; decreased breath sounds due to habitus Resp: course breath sounds bilaterally; crackles Abd; Non-tender, +bs, nondistended, no rash or bruising Ext: mild edema, not following commands to move extremities neuro: pupils reactive, moving head purposefully psych: alert, somewhat somnolent IVs and Medications Medications Reviewed: Medications were reviewed in detail Lab and Diagnostics Result Diagram: 11/10/16 0510 11/10/16 0510 X-Rays, CTs and MRIs Cervical Spine CT 1. No acute cervical spine injury. 2. Superior endplate depression at T4 which is new when compared with the prior cross-sectional study dated 03/21/16. The acuity of this finding is unknown. However, if the patient endorses focal pain in this region, acute compression deformity could be suspected. If further characterization is warranted, noncontrast MRI of the cervicothoracic region may be helpful. 3. "Crazy paving" pattern within the pulmonary apices bilaterally. There is a broad differential for this finding which includes pulmonary edema, ARDS, pulmonary alveolar proteinosis, acute interstitial pneumonia, and bacterial pneumonia. Dictated by: Penelope Granados M.D. on 11/07/2016 at 17:[address] 1. No acute intracranial findings. 2. 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 Dictated by: Penelope Granados M.D. on 11/07/2016 at 16:55 Chest X-ray IMPRESSION: New central venous catheter. Increased bilateral pulmonary radiopacities. Dictated by: Penelope Granados M.D. on 11/07/2016 at 17:34 Chest X-ray IMPRESSION: Status post intubation with the endotracheal tube approximately 2 cm above the tu. Consider retracting the endotracheal tube approximately 2 cm. Dictated by: Penelope Granados M.D. on 11/07/2016 at 20:22 Assessment & Plan 56-year-old female who suffered a ground-level fall question of a second to hypoxemia with observed saturations on 30% 1. Acute on chronic hypoxemic respiratory failure; present medicines; ongoing -Patient has underlying history of desquamative interstitial pneumonia and COPD ; no hypercarbia noted on admission -Patient was vented due to severe hypoxemia; hypoxemia persists -Patient not tolerating decrease of FiO2; ABG in the morning -Patient is up 10 L from admit and we will begin diuresing today with 20 mg Lasix IV 2. Questionable bilateral pneumonia, concern for hcap; present on admission, ongoing -Patient presents with diffuse pulmonary opacities chest x-ray, and white count of 22,000; noted that the x-ray may be complicated by underlying lung disease -CXR unchanged -Continue Zosyn today and will likely discontinue tomorrow -PCR panel is negative; blood cultures negative -Strep ag neg; blood cultures show no growth at 24hrs, sputum pend; MRSA negative -Procalcitonin decreaseing from 0.42 --> 0.2; will check tomorrow, likely discontinue antibiotics 3. Idiopathic pulmonary fibrosis with reported COPD; present on admission; ongoing -Patient has a reported history of COPD, however her blood gas did not show any exaggerated signs of hypercapnia; questionable exacerbation -Confirmed IPF by biopsy: desquamative interstitial pneumonia -CXR does not appear to be hyperinflated and diaphragms are not flat -On 40mg prednisone daily outpatient -Patient started on Solu-Medrol 125mg Q6hr -Duonebs every 4 hours through the vent 4.History of methadone/heroin/methamphetamine abuse; ongoing -Patient states that she could have overdosed on her methadone however this would have likely caused hypercapnia which was not seen -Patient on Ativan gtt to help with sedation and possible methamphetamine withdrawal 5 Anxiety/depression; is on medicine; stable -Patient is on buspirone and fluoxetine outpatient -Continue fluoxetine 6 Type II diabetes; present on medicine; stable -Patient is on metformin at home -A1c is 6.8 -Patient placed on low correction on the admission; will reconsider increasing this GI Prophylaxis: Famotidine DVT prophylaxis: Lovenox Disposition: Patient has not made noticeable progress and required Nimbex last night to help ventilating the patient. No timetable for extubation. GI Prophylaxis: H2 sonu VTE Prophylaxis: Sub-Q Enoxaparin VTE Mechanical Devices: Intermittant Pneumatic CD Resuscitation Status: CPR: Attempt Resuscitation Time spent For events Attending Statement Patient seen and examined with house staff, agree with all attached documentation. Giovanny Ahn DO Nov 10, 2016 15:49 Dudley Ojeda MD Nov 11, 2016 11:32
--- NOTE | 2016-11-10 17:34 | PROG NOTE ---
[address] [address] PROGRESS NOTE PATIENT: JONO RODNEY : 1960 MR#: [id number] ADMIT: 11/07/2016 JOB ID: [id number] DATE: 11/10/2016 PULMONARY VENTILATOR MANAGEMENT FOLLOWUP NOTE: PROBLEM: 1. Pulmonary fibrosis. 2. Methamphetamine abuse. 3. Nicotine abuse. 4. Dynamic compression of upper airways. SUBJECTIVE: None. OBJECTIVE: Temperature 37.2, pulse 77-91, respiratory rate 20, blood pressure 158/72. O2 saturation on FiO2 of 50%, PEEP of 9 is 96%. I and O shows 4.2 liters in, 1.4 liters out. General appearance: Sedated, paralyzed, on ventilator. Chest with fair breath sounds bilaterally. There are some crackles in the mid and lower lateral lung vegas. With a tidal volume of 350, rate of 20, PEEP of 9, FiO2 of 50%, pO2 of 75, pCO2 of 59, pH of 727. Peak inspiratory pressure 38, plateau of 36. PEEP is set at 9, measured at 9. Flow volume loop shows no collapse of upper airways during expiration. Heart: Good heart tones. Abdomen: Soft. Quiet. Extremities: Trace to 1+ pretibial edema. ASSESSMENT: 1. Dynamic compression of upper airways. Seems to have been stented open with the higher doses of PEEP. Will continue the high-dose steroids to see if we can reduce the edema, which is probably the culprit causing the obstruction. 2. Pulmonary fibrosis. With the decrease in the tidal volume, pressures have come down. She is ventilating adequately, though not optimally. Major concern is that with the diagnosis of interstitial lung disease, namely desquamative interstitial pneumonia (DIP), she has CO2 retention. Doubt it is due to the dynamic compression, but we will see whether that is the factor causing this. Otherwise, this portends a very poor prognosis as elevated CO2 and interstitial lung disease are often associated with within a year so. PLAN: 1. Continue present vent settings. 2. Continue a high dose steroids for another day or two, then we will start backing off on the steroids.
[2016-11-10] MEDS: Polyethylene Glycol (PEG) 17 Gm Powder PO SCH (18:33)
--- NOTE | 2016-11-10 19:27 | NUR ---
P: Resp, Hemodynamics, Neuro, Nutrition, Skin,Social I,E: Pt remains on the vent, changes made by pulmonology today. Small to scant clear secretions, pt not able to cough due to nimbex. Sats are in the mid 90's on 50% FIO2. Pt is in SR/ST today. BP150's to 160's sys. She received 20mg of lasix today and had a total of 2700cc UOP. Pt is sedated and paralysed. TO4 was initally 0/4 and nimbex has been titrated down, I attempted to drop the nimbex to 1.5mcg when she was 2/4 but with that she did start to fight the vent and TO4 increased to 4/4. Nimbex returned to 2mcg. Propofol and ativan titrated to BIS score today. She has been sedated and BIS was in the 30's and this afternoon it has gone up to the 40's. With light sedation she did go up to 60. Currently she is at 10mcg of propofol and ativan is off. Fentanyl is at 75mcg. Pt is still on tube feeds, which were increased per dog pound attendant order to 20cc and her residuals were 75cc to 125cc today. She has not had a BM. Pt's wound on her arms, legs and on her lower abdomen are healing and dry. She also has a red area/abrasion on her tongue that appears superficial and healing. Her Mum called today and I updated her on pt condition and plan of care.
[2016-11-10] MEDS: hydrALAZINE 20 mg/mL Inj IV PRN (22:27)
[2016-11-10] MEDS ORDERED: MeTOProlol 1 mg/mL 5 mL Inj IV ONE (23:45)
[2016-11-11] VITALS (11 sets, daily range): BP systolic 132–172; BP diastolic 61–81; PULSE 88–105; RESP 20; O2SAT 95–97
[2016-11-11] MEDS: Propofol Inj 1,000,000 MCG in IV Premix 1 EACH IV SCH ×6 (00:06→23:06)
[2016-11-11] MEDS: Piperacillin-Tazo 3.375 Gm Inj 3.375 GM in Dextrose 5% Minibag Plus 50 ML IV SCH ×2 (01:58→09:23)
[2016-11-11] MEDS: MethylprednisoLONE Sodium Succinate 62.5 mg/mL 2 mL Inj IVPUSH SCH ×2 (01:58→09:13)
[2016-11-11] MEDS: Chlorhexidine 0.12% 15 mL Oral Solution MT SCH ×6 (04:09→23:45)
[2016-11-11] MEDS: Albuterol-Ipratropium 3 mL Inhalation Solution NEB SCH ×5 (04:21→21:10)
[2016-11-11 04:22] LABS: BASOPHILS % (AUTO) 0.2 % (0-3); EOSINOPHILS % (AUTO) 0 % (0-5); MONOCYTES % (AUTO) 3.7 % (4-12); Mean Corpuscular Hemoglobin 23.5 pg (27.0-35.0); NEUTROPHILS % (AUTO) 90.7 % (40-74); Platelet Count 284 bil/L (150-400)
[2016-11-11] MEDS: Cisatracurium Inj 200,000 MCG in 0.9% Sodium Chloride-Pha MIX 100 ML IV SCH (04:51)
[2016-11-11 04:59] LABS: Magnesium 2.1 mg/dL (1.6-2.6)
[2016-11-11] MEDS ORDERED: MeTOProlol 1 mg/mL 5 mL Inj IVPUSH ONE (06:25)
[2016-11-11] MEDS: Insulin Human REGular Inj 100 UNIT in 0.9% Sodium Chloride-Pha MIX 100 ML IV SCH (06:37)
--- NOTE | 2016-11-11 07:21 | NUR ---
HTN/Tachycardia P: Hypertensive initial sbp >165 mmhg, HR 90-105 SR-ST I: given hydralazine 10 mg IV around 2200 E: around midnight SBP increased to systolic 200s, HR 118-120 ST I: titrated sedation, given metoprolol 5mg slow IVP E: BP improved down in the 150s mmhg post metoprolol, HR [address] ST[address]
--- NOTE | 2016-11-11 08:25 | PROG NOTE ---
[address] [address] PROGRESS NOTE PATIENT: JONO RODNEY : 1960 MR#: [id number] ADMIT: 11/07/2016 JOB ID: [id number] DATE: 11/11/2016 INFECTIOUS DISEASE FOLLOW UP NOTE: REASON FOR FOLLOW UP: Respiratory failure with bilateral pulmonary infiltrates. INTERVAL HISTORY: Overnight, the patient has remained relatively stable on the ventilator. She is currently on 50% FiO2 and 9 of PEEP as well as is receiving steroids. We have been giving her broad-spectrum antibiotics while we attempt and sort out whether any of her respiratory decompensation might be due to infection. This case was discussed in detail at the bedside with the ICU nurse and the patient carefully examined. Note that the patient is both intubated as well as paralyzed and heavily sedated so no history whatsoever can be obtained from the patient. PHYSICAL EXAMINATION: Reveals an afebrile woman. Temperature 37.2, pulse 100, respiratory rate 20, blood pressure 158/75, saturating well on 50% and 9 of PEEP. The patient's eyes are closed. I did not open them. Oral endotracheal tube, oral gastric tube in good position. Central line in the right neck without evidence of infection or inflammation. Lungs with coarse rales at the bases as before. Cardiac tones: A bit tachycardic but regular rate and rhythm without any murmur. Abdomen slightly distended, soft, and without organomegaly or ascites. Mckeon catheter is present. Extremities are well perfused. No evidence for skin rash. LABORATORIES: Include a white count 12,000 with 90% segs in this patient on substantial doses of steroids. Creatinine is 0.56. LFTs normal. Albumin 3.0. Procalcitonins have been essentially negative since admission, they started off at 0.4 and are now down to 0.08. Urinalysis was without pyuria. Urine Legionella and pneumococcal antigens negative. Multiplex PCR negative on respiratory secretions. MRSA screen negative. Sputum had scant normal mark. IMAGING: Continues to reveal bilateral pulmonary infiltrates. 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 It is likely that her DIP has worsened secondary to resumption of cigarette smoking and perhaps related also to the use of methamphetamine. At this point, there is no evidence whatsoever for viral, fungal or bacterial pneumonia and I think it is reasonable to stop all antibiotics. RECOMMENDATIONS: 1. Will discontinue the doxy and Zosyn today. 2. ID will go ahead and sign off on this case today but please do not hesitate to call me if there are future concerns about infection.
[2016-11-11] MEDS: Doxycycline Inj 100 MG in Dextrose 5% Minibag Plus 100 ML IV SCH (08:30)
[2016-11-11] MEDS: FLUoxetine 4 mg/mL 118 mL Solution PO SCH (09:13)
[2016-11-11] MEDS: Polyethylene Glycol (PEG) 17 Gm Powder PO SCH (09:23)
[2016-11-11] MEDS ORDERED: Cisatracurium Inj 200,000 MCG in 0.9% Sodium Chloride-Pha MIX 100 ML IV SCH (10:32)
--- NOTE | 2016-11-11 11:09 | PROG NOTE ---
[address] [address] PROGRESS NOTE PATIENT: JONO RODNEY : 1960 MR#: [id number] ADMIT: 11/07/2016 JOB ID: [id number] DATE: 11/11/2016 MECHANICAL VENTILATOR MANAGEMENT FOLLOWUP NOTE: PROBLEM: 1. Acute hypoxemic hypercarbic respiratory failure. 2. Dynamic compression of upper airways. 3. Diffuse interstitial pneumonitis. SUBJECTIVE: None. OBJECTIVE: Temperature 37.2, pulse 100, respiratory rate 20 with ventilator set at 20, blood pressure 132/61, O2 sat on FiO2 of 50% and PEEP of 7 is 97%. I and O shows 4.6 liters in, 3 liters out. General appearance: Sedated, paralyzed on ventilator. Significant facial edema. Chest shows fair breath sounds bilaterally. A few crackles in the left mid and lower lung [place] anteriorly, as well as laterally. There is a fine, high-pitched expiratory squeaking wheeze in the right mid and lower lung [place] anteriorly. Peak inspiratory pressure 30, plateau 28. Spirometry loop looks relatively normal. PEEP was decreased to 5, with continued good expiratory flow without evidence of dynamic compression of the airways. ASSESSMENT: 1. Diffuse interstitial pneumonitis, likely with underlying scarring. This seems a little bit improved. Still with quite elevated pressures. No particular problem with flow pressure at this point. 2. Upper airway obstruction. Seems to have resolved. Was likely dynamic compression of the airways the other day. We started high-dose steroids to help with that. Need to back off the steroids in order to decrease the chances of infectious complications on a patient in the intensive care unit on a mechanical ventilator. With the improvement in the pressures and the airway obstruction, would also like to get her off the paralytics. PLAN: 1. Decrease PEEP to 5. 2. Decrease Solu-Medrol to 125 mg IV piggyback daily. 3. If patient is relatively stable and once we get a good idea of her baseline, we will discontinue Nimbex.
[2016-11-11] MEDS: fentaNYL 2,500 mCg/250 mL 2,500 MCG in IV Premix 1 EACH IV SCH (11:19)
--- NOTE | 2016-11-11 11:36 | NUR ---
NUTRITION FOLLOW-UP Assess: 56 YO F admitted to CCU with COPD exacerbation, sepsis, and PNA requiring mechanical ventilation. Pt continues to require mechanical ventilation. Pt having high GRV, TF being held at 30 ml/hr. Plans to possibly titrate nimbex down today. Per nursing, pt has pitting edema in her feet. PMHx: Acute on chronic respiratory failure, desquamated interstitial pneumonia, tobacco, psychiatric disorder, HLD, opiate abuse, COPD, depression, asthma, anxiety, influenza A, PTSD. LABS: Reviewed. BUN 26, Cr 0.56, Glu 165, Ca 8.3 MEDICATIONS: Reviewed. Insulin, Solu-medrol, Propofol @ 16.9 ml/hr (446 kcal/d), Nimbex DIET: NPO. GI: No BM noted. SKIN: No pressure injuries noted ANTHROPOMETRICS: Current Wt: 99.5 kg BMI: 37.7 kg/m2, Admit Wt: 94.7 kg, IBW: 54.5 kg. ESTIMATED NEEDS: VENT/BMI Calories: 9224-3152 kcal/day (20-22 kcal/kg BW) Protein: 82-98 g/day (1.5-1.8 g/kg/d IBW) NUTRITION DIAGNOSIS: 1) Inadequate oral intake related to decreased ability to consume sufficient energy as evidenced by NPO/Vent status.---PERSISTS INTERVENTION: 1) Recommend changing formula to Vital 1.5 (elemental formula). 2) Recommend starting TF @ 20 ml/hr and hold for 8 hrs. If pt tolerating, recommend advancing 10 ml q 8 hrs to goal rate of 47 ml/hr, to provide 1551 kcal/d (1997 kcal/d w/ propofol), 70 g/d protein, and 970 ml/d H2O, meeting 100% of calorie needs. 3) Once pt tolerating at goal rate, recommend addition of 1 packet of prosource BID to provide 92 g/d protein, meeting 100% of est protein needs 4) Adjust goal rate based on daily propofol rate. MONITOR/EVALUATE: NPO/Vent status, GI, nutrition support, labs, nutrition status, POC. Follow per high nutrition risk guidelines.
[2016-11-11] MEDS ORDERED: Cisatracurium 200,000 mCg/100 mL NS IV PRN ×2 (14:05)
[2016-11-11] MEDS: LORazepam 100 mg/100 mL NS 100 MG in IV Premix 100 EACH IV SCH (14:44)
--- NOTE | 2016-11-11 14:46 | PCM.PNMED ---
Subjective Date of Service Nov 11, 2016 Subjective Patient was stable overnight with some episodes of hypertension and tachycardia. Those resolved. Patient continues on Nimbex this morning. Exam Vital Signs Vital Sign - Last Date Time Temp Pulse Resp B/P Pulse Ox O2 Delivery O2 Flow Rate FiO2 11/11/16 12:48 90 155/67 96 50 11/11/16 12:00 37.1 20 Mechanical Ventilator 11/07/16 23:08 8 Intake and Output 11/10/16 11/10/16 11/11/16 Cumulative From/Thru 15:00 23:00 07:00 11/07/16 15:10 - 11/11/16 06:15 Intake Total 2164 ml 15151 ml Output Total 2700 ml 6775 ml Balance -536 ml 9830 ml Intake Oral 20 ml IV Total 1876 ml 72889 ml Tube Feeding 148 ml 264 ml Tube Irrigant 140 ml 230 ml Output Urine Total 2700 ml 5375 ml Gastric Drainage Total 1400 ml # Bowel Movements 0 Exam Gen: Sedated HEENT: no jvd, supple, central line and right subclavian Cardio: RRR no m/r/g Resp: course breath sounds bilaterally; crackles Abd; Non-tender, +bs, nondistended, Ext: mild edema, not following commands to move extremities neuro: Paralyzed psych: Sedated IVs and Medications Medications Reviewed: Medications were reviewed in detail Lab and Diagnostics Result Diagram: 11/11/16 0400 11/11/16 0400 X-Rays, CTs and MRIs Cervical Spine CT 1. No acute cervical spine injury. 2. Superior endplate depression at T4 which is new when compared with the prior cross-sectional study dated 03/21/16. The acuity of this finding is unknown. However, if the patient endorses focal pain in this region, acute compression deformity could be suspected. If further characterization is warranted, noncontrast MRI of the cervicothoracic region may be helpful. 3. "Crazy paving" pattern within the pulmonary apices bilaterally. There is a broad differential for this finding which includes pulmonary edema, ARDS, pulmonary alveolar proteinosis, acute interstitial pneumonia, and bacterial pneumonia. Dictated by: Penelope Granados M.D. on 11/07/2016 at 17:[address] 1. No acute intracranial findings. 2. 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 Dictated by: Penelope Granados M.D. on 11/07/2016 at 16:55 Chest X-ray IMPRESSION: New central venous catheter. Increased bilateral pulmonary radiopacities. Dictated by: Penelope Granados M.D. on 11/07/2016 at 17:34 Chest X-ray IMPRESSION: Status post intubation with the endotracheal tube approximately 2 cm above the tu. Consider retracting the endotracheal tube approximately 2 cm. Dictated by: Penelope Granados M.D. on 11/07/2016 at 20:22 Assessment & Plan 56-year-old female who suffered a ground-level fall question of a second to hypoxemia with observed saturations on 30% 1. Acute on chronic hypoxemic respiratory failure; present medicines; ongoing -Patient has underlying history of desquamative interstitial pneumonia and COPD ; no hypercarbia noted on admission -Patient was vented due to severe hypoxemia; hypoxemia persists -Patient not tolerating decrease of FiO2; ABG in the morning -Continue diuresis 2. Questionable less likely bilateral pneumonia, concern for hcap; present on admission, ongoing -Patient presents with diffuse pulmonary opacities chest x-ray, and white count of 22,000; noted that the x-ray may be complicated by underlying lung disease -CXR unchanged -Discontinue Zosyn -PCR panel is negative; blood cultures negative; strep antigen negative, MRSA negative; sputum negative -Procalcitonin normalized 3. Idiopathic pulmonary fibrosis with reported COPD; present on admission; ongoing -Patient has a reported history of COPD, however her blood gas did not show any exaggerated signs of hypercapnia; questionable exacerbation -Confirmed IPF by biopsy: desquamative interstitial pneumonia -CXR does not appear to be hyperinflated and diaphragms are not flat -On 40mg prednisone daily outpatient Change Solu-Medrol from 125mg every 6 hours to daily -Duonebs every 4 hours through the vent 4.History of methadone/heroin/methamphetamine abuse; ongoing -Patient states that she could have overdosed on her methadone however this would have likely caused hypercapnia which was not seen -Patient currently on Ativan push 5 Anxiety/depression; is on medicine; stable -Patient is on buspirone and fluoxetine outpatient -Continue fluoxetine 6 Type II diabetes; present on medicine; stable -Patient is on metformin at home -A1c is 6.8 -Patient placed on medium correction GI Prophylaxis: Famotidine DVT prophylaxis: Lovenox Disposition: Mild improvement in hypoxia. No plans for discharge extubation this time GI Prophylaxis: H2 sonu VTE Prophylaxis: Sub-Q Enoxaparin VTE Mechanical Devices: Intermittant Pneumatic CD Resuscitation Status: CPR: Attempt Resuscitation Time spent 45 min Attending Statement Patient seen and examined with house staff, agree with all attached documentation. Giovanny Ahn DO Nov 11, 2016 14:46 Dudley Ojeda MD Nov 12, 2016 07:37
--- NOTE | 2016-11-11 17:08 | DRSVH ---
[facility] [address] [place] [address] Echocardiogram Report Name: JONO RODNEY LStudy Barry e: 11/11/2016 Height: 64 in Hospital Exam Location: [facility] Weight: 219 lb Gender: Female BSA: 2.0 m2 : 1960 Age: 56 yrs BP: 152/64 mm Hg Reason For Study: Left Ventricular Systolic Dysfunction Ordering Physician: HOSPITALIST RONYerformed By: Hyacinth Hahn Referring Physician: IAN ALCALA Interpretation Summary The ejection fraction is estimated to be 70-75%. There is discrete nodular thickening of the non- coronary cusp. The right ventricular systolic pressure is estimated at 51 mmHg assuming a right atrial pressure of 8 mm Hg. Compared to the prior echo exam, there has been an increase in the severity of pulmonary hypertension. Procedure: A two-dimensional transthoracic echocardiogram with color flow and Doppler was performed. The study quality was technically difficult. Images were not obtained from all of the standard acoustic windows due to the limited scope of the study. Comparison is made with the echocardiogram of 10/03/2015. The patient was in normal sinus rhythm during the exam. Left Ventricle: The left ventricle is normal in size. The ejection fraction is estimated to be 70-75%. Spectral Doppler of the mitral valve is reversed, with an E/A wave ratio < 0.8. Diastolic function could not be accurately assessed due to unobtainable data. Right Ventricle: The right ventricle is normal in size, thickness and function. Atria: The left atrium is not well visualized. Right atrium not well visualized. The interatrial septum is intact with no evidence for an atrial septal defect. Mitral Valve: The mitral valve leaflets appear borderline thickened, but open well. The mitral valve leaflets appear to open well. There is no mitral regurgitation noted. Aortic Valve: The aortic valve is not well visualized. There is discrete nodular thickening of the non- coronary cusp. The aortic valve opens well. There is no hemodynamically significant valvular aortic stenosis. There is trace aortic regurgitation. Tricuspid Valve: The tricuspid valve is normal in structure and function. There is trace tricuspid regurgitation. The right ventricular systolic pressure is estimated at 51 mmHg assuming a right atrial pressure of 8 mm Hg. Compared to the prior echo exam, there has been an increase in the severity of pulmonary hypertension. Pulmonic Valve: The pulmonic valve is not well seen, but is grossly normal. There is no pulmonic valvular regurgitation. Great Vessels: The aortic root is normal size. The ascending aorta could not be visualized. The aortic arch could not be visualized. The pulmonary artery is not well visualized, but is probably normal size. The IVC is of normal diameter and collapses less than 50% with a sniff. This suggests a right atrial pressure of 8 mm Hg. Pericardium/ Pleura There is no pericardial effusion. There is no pleural effusion. MMode/2D Measurements & Calculations LVIDd: 5.2 cm LA dimension Ao root diam LV phillips. diameter/BSA LVIDs: 3.2 cm (cm/m^2): 2.5 FS: 38.5 % IVC diam IVSd: 1.1 cm : 2.1 cm LVPWd: 0.72 cm LV sys. diameter/BSA (cm/m^2): 1.6 Doppler Measurements & Calculations MV E max lucia MV E/A: 0.77 TR max lucia MV dec time : 91.9 cm/sec : 327.2 cm/sec : 0.24 sec MV A max lucia TR max PG : 119.5 cm/sec : 42.8 mmHg MV P1/2t: 70.5 msec PA V2 max : 126.6 cm/sec PA mean PG PA Accel Time MV P1/2t max lucia PA V2 mean : 73.0 cm/sec MVA(P1/2t): 3.1 cm2 Electronically signed by: Rohith Ling on Reading Physician:11/11/2016 05:08 PM
[2016-11-11] MEDS ORDERED: Cisatracurium Inj 200,000 MCG in 0.9% Sodium Chloride 100 ML, Pharmacy To Mix 1 EA IV ONE (17:50)
--- NOTE | 2016-11-11 18:32 | NUR ---
Respiratory/TOF/tube feeds Pt continues to be on nimbex and sedation throughout most of shift. Increased sedation due to HTN and tachycardia with good effect (see CCU flow sheet). TOF/BIS documentation done and meds adjusted per protocol. TOF off for a few hours in afternoon per MD while Pulmonology adjusted PEEP. Nimbex restarted at 1750 per Kendregan because of difficulty ventilating pt. Pt's tube feeds continue to have high residuals. Discussed in rounds, new orders to switch tube feed to Vital 1.5 at 20ml started. Residuals q4h, MD and nutrition aware of residuals. increased tube feeds per protocol. Frequent oral care, q2h turns and rounding continues.
[2016-11-11] MEDS ORDERED: MeTOProlol 1 mg/mL 5 mL Inj IV ONE (22:25)
[2016-11-11] MEDS: 0.9% Sodium Chloride 1,000 ML IV SCH (23:04)
[2016-11-12] VITALS (13 sets, daily range): BP systolic 121–192; BP diastolic 2–82; PULSE 66–92; RESP 20; O2SAT 93–99
[2016-11-12] MEDS: Albuterol-Ipratropium 3 mL Inhalation Solution NEB SCH ×7 (00:25→23:53)
[2016-11-12] MEDS: Chlorhexidine 0.12% 15 mL Oral Solution MT SCH ×6 (03:31→23:51)
[2016-11-12] MEDS: Propofol Inj 1,000,000 MCG in IV Premix 1 EACH IV SCH ×6 (03:31→23:50)
[2016-11-12] MEDS: fentaNYL 2,500 mCg/250 mL 2,500 MCG in IV Premix 1 EACH IV SCH ×2 (03:32→14:17)
[2016-11-12 05:26] LABS: BASOPHILS % (AUTO) 0.1 % (0-3); EOSINOPHILS % (AUTO) 0.2 % (0-5); Mean Corpuscular Hemoglobin 23.6 pg (27.0-35.0); Mean Corpuscular Volume 80.9 fL (81-100); Platelet Count 242 bil/L (150-400)
[2016-11-12 05:40] LABS: Magnesium 2.2 mg/dL (1.6-2.6); Phosphorus 2.6 mg/dL (2.5-4.9)
--- NOTE | 2016-11-12 05:45 | ABG ---
DateTimeAnalyzed 05:42:00 -_ pH ____7.418 - 7.350 7.450 pCO2 ___50.4__ -mmHg 35.0 45.0 pO2 ___98.6__ -mmHg 69.0 116 HCO3- ___32.0__ -mmol/L 22.0 26.0 ABE ____6.8__ -mmol/L -2.0 2.0 tHb ___10.5__ -g/dL O2Hb ___95.1__ -% COHb ____1.8__ -% MetHb ____1.0__ -% sO2 ___97.8__ -% FIO2 ___21.0__ -% PEEP ____5.0__ -cmH2O Set_RR ___20.0__ -b/min Vt __350.0__ -L Drawn By MD - Date/Time Notified____ 05:44:00 -_ Spontaneous_RR ___20.0__ -b/min Oxygen Device 1 VENTILATOR - Notified By MD - Notified Whom RN A.MATA - B 760 -mmHg tO2 ___14.2__ -Vol% Dudley test N/A -
--- NOTE | 2016-11-12 07:15 | NUR ---
Cardiac/Respiratory/Nutrition Pt hypertensive w/ SBP 170-180's mmhg, HR low 100's ST, given lopressor 5mg slow IV, SBP improved in the 130-150's HR down to 90's NSR; on nimbex @ 2 mcg, TOF 2/4 @ 4MA, BIS 40's, sp02 >94% on 0.50 fio2 vent , propofol and fentanyl gtt sedation; tolerating TF with small-mod residuals.
[2016-11-12] MEDS ORDERED: Furosemide 10 mg/mL 2 mL Inj IVPUSH ONE (07:55)
--- NOTE | 2016-11-12 09:06 | DRSVH ---
PROCEDURE: X-RAY CHEST ONE VIEW, PORTABLE ([id number]) INDICATIONS: pulm fibrosis due to DIP TECHNIQUE: One view of the chest was acquired. COMPARISON: [facility], CR, XR CHEST 1VW (PORTABLE), 11/09/2016, 5:06. [facility], CR, XR CHEST 1VW (PORTABLE), 11/07/2016, 19:56. [facility], CR, XR CHEST 1VW (PORT ABLE), 11/10/2016, 7:56. FINDINGS: Surgical changes and devices: Stable position the ETT, nasogastric tube and right subclavian chest po rt. Of note, there is sharp angulation noted involving the mid portion of the CVL as it crosses the undersurface of the clavicle unchanged. Lungs and pleura: Diffuse, widespread bilateral pulmonary interstitial and air space opacities are pr esent not significantly changed from prior examination. Mediastinum: Mediastinal contours appear normal. Heart size is normal. Bones and chest wall: No suspicious bony lesions. Overlying soft tissues appear unremarkable. IMPRESSION: No significant change from prior examination suggesting pulmonary edema and/or bibasilar pneumonia. Dictated by: Wei GORE Interpreted: Genevieve Galan MD on 11/12/2016 at 9:05 Transcribed by: MICHELLE on 11/12/2016 at 9:06 Approved by: Genevieve Galan M.D. on 11/12/2016 at 11:07
[2016-11-12] MEDS: FLUoxetine 4 mg/mL 118 mL Solution PO SCH (09:18)
[2016-11-12] MEDS: Polyethylene Glycol (PEG) 17 Gm Powder PO SCH (09:19)
[2016-11-12] MEDS: MethylprednisoLONE Sodium Succinate 62.5 mg/mL 2 mL Inj IVPUSH SCH (09:20)
[2016-11-12] MEDS: hydrALAZINE 20 mg/mL Inj IV PRN (10:18)
[2016-11-12] MEDS ORDERED: Cisatracurium Inj 200,000 MCG in 0.9% Sodium Chloride 100 ML, Pharmacy To Mix 1 EA IV PRN (10:35)
--- NOTE | 2016-11-12 12:22 | PCM.PNMED ---
Subjective Date of Service Nov 12, 2016 Subjective Pulmonology/ICU consult: Attending Dr. Francisco, requesting provider Dr. Ahn Ms. Casarez is a 56-year-old female with past medical history of COPD, asthma and interstitial lung disease was admitted to the hospital for acute hypoxic respiratory failure secondary to suspected polysubstance use. Overnight: Patient became hypertensive with SBP in the 180s heart rate 100s. Given Lopressor with some effect. Patient remains on Nimbex. Exam Vital Signs Vital Sign - Last Date Time Temp Pulse Resp B/P Pulse Ox O2 Delivery O2 Flow Rate FiO2 11/12/16 12:00 66 121/58 98 50 11/12/16 03:38 37.0 20 Mechanical Ventilator 11/07/16 23:08 8 Intake and Output 11/11/16 11/11/16 11/12/16 Cumulative From/Thru 15:00 23:00 07:00 11/07/16 15:10 - 11/12/16 06:21 Intake Total 1366 ml 835 ml 1710 ml 42443 ml Output Total 1650 ml 1200 ml 800 ml 75913 ml Balance -284 ml -365 ml 910 ml 79555 ml Intake Oral 20 ml IV Total 777 ml 483 ml 932 ml 04125 ml Tube Feeding 449 ml 292 ml 663 ml 1668 ml Tube Irrigant 140 ml 60 ml 115 ml 545 ml Output Urine Total 1650 ml 900 ml 800 ml 8725 ml Gastric Drainage Total 300 ml 1700 ml # Bowel Movements 0 0 0 Exam General: Intubated and sedated Cardiovascular: Heart tones difficult to appreciate secondary to body habitus and mechanical ventilation. Pulmonary: Bilateral inspiratory and expiratory crackles upper anterior lobes. Abdomen: Bowel tones present. Soft, nontender, nondistended. No hepatosplenomegaly or masses appreciated. Extremities: No clubbing, cyanosis, edema, or lymphadenopathy appreciated. Skin: Multiple scar tissue from previous I and D's. Multiple lesions presumably from digital trauma. Psychiatric: Intubated and sedated Ventilator settings: Tidal volume 350. Respiratory rate 20. FiO2 0.50. PEEP 10. ABG: pH 7.418, pCO2 50.4, pO2 98.6, HCO3 32. IV drips and Sedatives: Propofol 45mcg/kg/hr, Fentanyl 175/mcg/kg/hr IV lines: Right Subclavian Line I&O: last 24 hrs; in + 1710, out - 800, total + 910. Total to date; in + 57559 , out - 13724, total + 76424 IVs and Medications Medications Reviewed: Medications were reviewed in detail Lab and Diagnostics Result Diagram: 11/12/16 0500 11/12/16 0500 X-Rays, CTs and MRIs Cervical Spine CT 1. No acute cervical spine injury. 2. Superior endplate depression at T4 which is new when compared with the prior cross-sectional study dated 03/21/16. The acuity of this finding is unknown. However, if the patient endorses focal pain in this region, acute compression deformity could be suspected. If further characterization is warranted, noncontrast MRI of the cervicothoracic region may be helpful. 3. "Crazy paving" pattern within the pulmonary apices bilaterally. There is a broad differential for this finding which includes pulmonary edema, ARDS, pulmonary alveolar proteinosis, acute interstitial pneumonia, and bacterial pneumonia. Dictated by: Penelope Granados M.D. on 11/07/2016 at 17:[address] 1. No acute intracranial findings. 2. 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 Dictated by: Penelope Granados M.D. on 11/07/2016 at 16:55 Chest X-ray IMPRESSION: New central venous catheter. Increased bilateral pulmonary radiopacities. Dictated by: Penelope Granados M.D. on 11/07/2016 at 17:34 Chest X-ray IMPRESSION: Status post intubation with the endotracheal tube approximately 2 cm above the tu. Consider retracting the endotracheal tube approximately 2 cm. Dictated by: Penelope Granados M.D. on 11/07/2016 at 20:22 X-RAY CHEST ONE VIEW, PORTABLE IMPRESSION: No significant change from prior examination suggesting pulmonary edema and/or bibasilar pneumonia. Assessment & Plan 56 y/o female past medical history of polysubstance abuse, is claiming of interstitial pneumonitis admitted for acute hypoxemic respiratory failure status post methamphetamine inhalation. 1. Acute (on chronic) hypoxemic respiratory failure. With extensive interstitial pneumonia and COPD. Patient required intubation and remains on ventilation secondary to prolonged hypoxemia. She still does not tolerate decreases in her FiO2. PCO2 remains high however PO2 is within normal limits and bicarbonate remains elevated. There was likely some dynamic compression of her airways which required increase in her PEEP as well as high-dose steroids - Ventilator adjustments continue, PEEP increased to 10 from 5. - Steroids reduced to Solu-Medrol 125 mg IV daily from 125 every 8. - DuoNeb nebs every 4 - CXR today shows bilateral infiltrates, more basilar predominant overall improved - ABGs 11/12/2016 pH 7.41, PCO2 50, PO2 98, bicarbonate 32 2. Diffuse interstitial pneumonitis, diagnosed by surgical biopsy. - Extensive history of smoking inhalation including cigarettes as well as methamphetamine. - Patient has had a decrease in the title volume with lower pressures. With the decrease in the tidal volume, pressures have come down. She is maintaining adequate ventilation. - Zosyn discontinued - All cultures and serologies to date negative - Pro calcitonin normalized GI Prophylaxis: H2 sonu VTE Prophylaxis: Sub-Q Enoxaparin VTE Mechanical Devices: Intermittant Pneumatic CD Resuscitation Status: CPR: Attempt Resuscitation Attending Statement I have seen and examined this patient with the resident physician. Vital signs , labs, imaging have been reviewed. I agree with the assessment and plan above. Please refer to my separately dictated progress note for any modifications to above. Sophy Francisco M.D. Pulmonary and Critical Care medicine Pager [phone] LIZZETTE BARTLETT DO Nov 12, 2016 12:22 Sophy Francisco MD Nov 12, 2016 18:15 LIZZETTE BARTLETT DO Nov 12, 2016 12:22 GI Prophylaxis: H2 sonu VTE Prophylaxis: Sub-Q Enoxaparin VTE Mechanical Devices: Intermittant Pneumatic CD Resuscitation Status: CPR: Attempt Resuscitation LIZZETTE BARTLETT DO Nov 12, 2016 12:22 With the improvement in the pressures and the airway obstruction, would also like to get her off the paralytics. PLAN: 1. Decrease PEEP to 5. 2. Decrease Solu-Medrol to 125 mg IV piggyback daily. 3. If patient is relatively stable and once we get a good idea of her baseline, we will discontinue Nimbex. GI Prophylaxis: H2 sonu VTE Prophylaxis: Sub-Q Enoxaparin VTE Mechanical Devices: Intermittant Pneumatic CD Resuscitation Status: CPR: Attempt Resuscitation LIZZETTE BARTLETT DO Nov 12, 2016 12:22
--- NOTE | 2016-11-12 13:09 | PCM.PNMED ---
Subjective Date of Service Nov 12, 2016 Subjective Overnight patient was hypertensive and tachycardic; patient given metoprolol with some resolution; patient continues on Nimbex due to difficult ventilator Exam Vital Signs Vital Sign - Last Date Time Temp Pulse Resp B/P Pulse Ox O2 Delivery O2 Flow Rate FiO2 11/12/16 12:38 Ventilator 11/12/16 12:32 36.7 66 20 121/58 98 50 11/07/16 23:08 8 Intake and Output 11/11/16 11/11/16 11/12/16 Cumulative From/Thru 15:00 23:00 07:00 11/07/16 15:10 - 11/12/16 06:21 Intake Total 1366 ml 835 ml 1710 ml 82141 ml Output Total 1650 ml 1200 ml 800 ml 24111 ml Balance -284 ml -365 ml 910 ml 44444 ml Intake Oral 20 ml IV Total 777 ml 483 ml 932 ml 50123 ml Tube Feeding 449 ml 292 ml 663 ml 1668 ml Tube Irrigant 140 ml 60 ml 115 ml 545 ml Output Urine Total 1650 ml 900 ml 800 ml 8725 ml Gastric Drainage Total 300 ml 1700 ml # Bowel Movements 0 0 0 Exam Gen: Sedated and unarousable HEENT: Right subclavian in place Cardio: RRR no m/r/g Resp: course breath sounds bilaterally Abd; Non-tender, +bs, nondistended, Ext: mild edema, not following commands to move extremities neuro: Paralyzed psych: Sedated IVs and Medications Medications Reviewed: Medications were reviewed in detail Lab and Diagnostics Result Diagram: 11/12/16 0500 11/12/16 0500 X-Rays, CTs and MRIs Cervical Spine CT 1. No acute cervical spine injury. 2. Superior endplate depression at T4 which is new when compared with the prior cross-sectional study dated 03/21/16. The acuity of this finding is unknown. However, if the patient endorses focal pain in this region, acute compression deformity could be suspected. If further characterization is warranted, noncontrast MRI of the cervicothoracic region may be helpful. 3. "Crazy paving" pattern within the pulmonary apices bilaterally. There is a broad differential for this finding which includes pulmonary edema, ARDS, pulmonary alveolar proteinosis, acute interstitial pneumonia, and bacterial pneumonia. Dictated by: Penelope Granados M.D. on 11/07/2016 at 17:[address] 1. No acute intracranial findings. 2. 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 Dictated by: Penelope Granados M.D. on 11/07/2016 at 16:55 Chest X-ray IMPRESSION: New central venous catheter. Increased bilateral pulmonary radiopacities. Dictated by: Penelope Granados M.D. on 11/07/2016 at 17:34 Chest X-ray IMPRESSION: Status post intubation with the endotracheal tube approximately 2 cm above the tu. Consider retracting the endotracheal tube approximately 2 cm. Dictated by: Penelope Granados M.D. on 11/07/2016 at 20:22 Assessment & Plan 56-year-old female who suffered a ground-level fall question of a second to hypoxemia with observed saturations on 30% 1. Acute on chronic hypoxemic respiratory failure; present medicines; ongoing -Patient has underlying history of desquamative interstitial pneumonia and COPD ; no hypercarbia noted on admission -Patient was vented due to severe hypoxemia; hypoxemia persists -Patient not tolerating decrease of FiO2; ABG in the morning -Continue diuresis 2. ARDS, concern for hcap; present on admission, ongoing -Patient presents with diffuse pulmonary opacities on chest x-ray, and white count of 22,000; noted that the x-ray may be complicated by underlying lung disease -CXR improved from day of admit -PCR panel is negative; blood cultures negative; strep antigen negative, MRSA negative; sputum negative -Procalcitonin normalized -Discussion with Dr. Francisco today and patient meets PaO2/pO2 requirements for ARDS; she has also had bilateral pulm infiltrates that were previously felt to be due to her interstitial disease 3. Idiopathic pulmonary fibrosis with reported COPD; present on admission; ongoing -Patient has a reported history of COPD, however her blood gas did not show any exaggerated signs of hypercapnia; questionable exacerbation -Confirmed IPF by biopsy: desquamative interstitial pneumonia -CXR does not support COPD -On 40mg prednisone daily outpatient -Continue Solu-Medrol from 125mg every 6 hours to daily -Duonebs every 4 hours through the vent 4.History of methadone/heroin/methamphetamine abuse; ongoing -Patient states that she could have overdosed on her methadone however this would have likely caused hypercapnia which was not seen -Patient currently on Ativan push 5 Anxiety/depression; is on medicine; stable -Patient is on buspirone and fluoxetine outpatient -Continue fluoxetine 6 Type II diabetes; present on medicine; stable -Patient is on metformin at home -A1c is 6.8 -Patient placed on medium correction 7. Hypertension and tachycardia; ongoing -Possible if this is due to agitation on underlying disease process. -EKG reveals sinus rhythm with prolonged QT -When necessary labetalol and lisinopril started. Hydralazine discontinued GI Prophylaxis: Famotidine DVT prophylaxis: Lovenox Disposition: Mild improvement in hypoxia although this tentative. No plans for discharge extubation this time GI Prophylaxis: H2 sonu VTE Prophylaxis: Sub-Q Enoxaparin VTE Mechanical Devices: Intermittant Pneumatic CD Resuscitation Status: CPR: Attempt Resuscitation Time spent 45 min Attending Statement Patient was seen and examined with housestaff. Agree with all attached documentation. Giovanny Ahn DO Nov 12, 2016 13:09 Dudley Ojeda MD Nov 13, 2016 13:56
--- NOTE | 2016-11-12 13:11 | PROG NOTE ---
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 INTERVAL HISTORY: The patient is very well known to me from outpatient pulmonary clinic, and I had just seen her last week when she had made significant progress compared to her admission in May for another relapse with respiratory failure. It looks like she relapsed yet again and was found down and got intubated. With regards to overnight events--no major events. Looks like there was an attempt made in the last couple of days to wean the cisatracurium paralytic but patient did not tolerate it. REVIEW OF SYSTEMS: Unable to obtain since she is intubated. PHYSICAL EXAMINATION: Vital signs reviewed. T-max of 37.6 yesterday evening, pulse 93, respirations 20, BP 159/75, sats 95% on 50% FiO2 and 5 cm of PEEP. General: Intubated, sedated, and paralyzed. Therefore, unresponsive. Chest: Bilateral crackles. Skin: Multiple lesions from picking her skin on her arms. LABORATORIES: Reviewed. WBC 9, down from 22 on admission. Hemoglobin 10, platelets 242. Chemistry also reviewed and within normal limits. Procalcitonin negative x2, after initial admission procalcitonin of 0.4. Cultures: No growth on blood, sputum and respiratory viral PCR. Arterial blood gas from this morning shows pH of 7.41, pCO2 of 50, pO2 of 98, bicarb of 32. Chest x-ray done today shows bilateral infiltrates, more basilar predominant, improved compared to 11/07/16. ASSESSMENT AND RECOMMENDATIONS: 1. Acute respiratory distress syndrome. 2. Acute hypoxic respiratory failure. 3. 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 4. Polysubstance abuse--clean of heroin for over a year but with multiple relapses of methamphetamine and tobacco. This unfortunate, 56-year-old woman is well known to me for her respiratory issues for which she follows me as an outpatient. She was diagnosed with desquamative interstitial pneumonitis which is a smoking-associated interstitial lung disease based on a surgical lung biopsy done in December 2015. She was treated with steroids subsequently and also managed to stay off of cigarettes for a while. She had an excellent response at the time, but as we were weaning the steroids, relapsed on tobacco for a couple of weeks and methamphetamine once in May that resulted in severe hypoxic respiratory failure. She was back in the ICU at that point, on high-flow nasal cannula oxygen, FiO2 around 80% to 100% for a few weeks. We had to go back up on her steroids and again she has taken many months to slowly recover and was finally showing significant improvement as of her outpatient visit with me last week. She had been suffering from severe hip arthritis and her hip replacement surgery was on hold until her steroid dose could get low enough to minimize complications and poor wound healing. It looks like in the interim she has relapsed again. Although it is not clear to me that she started smoking again, she clearly used methamphetamine again based on her U-Tox and the patient's own admission. She is back on the ventilator with bilateral infiltrates and meets criteria for ARDS based on her P to F ratio. I have no doubt that this is another relapse of her desquamative interstitial pneumonitis. Her procalcitonin was mildly elevated at 0.42 on the day of admission but all cultures have been negative, and I think this by itself is nonspecific. We are currently treating her with Solu-Medrol, initially at 1:25 IV q.8 and currently down to 125 IV daily. If she does not continue to improve, then I might increase this dose again. With regard to sedation, she is on propofol, fentanyl, and cisatracurium. I would like to increase the fentanyl dose and see if we can wean her off the paralytics. I would also like to increase her PEEP from 5 to 10. I spoke to her friend/cousin's at the bedside today. The patient has an elderly mother who finds it difficult to come to the ICU, whom I have met on one occasion in the past. Apparently patient's siblings also have problems with drugs and have not been able to visit her either. The patient herself has said to multiple family members and to myself that she would never want to be intubated. However, here she is now on the ventilator. I am not sure what the next best step would be, but at the very least, I would like to get Palliative Care involved in conversations with her mother specifically, who is the legal next of kin and decision maker. I think if we are able to make progress over the next few days and get her off the ventilator, then perhaps we could have the patient herself drop some more firm documentation regarding her wishes regarding end of life care. However, if she remains on the ventilator, unable to wean, then I am worried that something like a tracheostomy would really not be consistent with her previously stated wishes and would like to make sure we have a relationship with her mother so we can explore this further. CRITICAL CARE TIME: 60 minutes.
--- NOTE | 2016-11-12 15:01 | NUR ---
Palliative care note D/A: Palliative care referral received today from Dr. Francisco. Rebeca Casarez is a frequent visitor to this hospital. Note that referral for outpt PC had been received in the recent past and [facility] had attempted on several occasions to make contact with pt to set up appts. Program was only able to leave messages and pt did not call back. [facility] has not and was not successful in meeting pt. Pt currently on vent. Medics called to the house found pt sating at 30%, with room air. Pt intubated in ED. Carries current diagnosis of desquamative interstitial pneumonitis. Rebeca has struggled with opiate addiction and has been stable for the last recent period of time with assistance from [employer] and their methadone program. Pt noted in earlier admit that she only had to go three times a week. Over the past year, pt has been able to have periods of time where she does not smoke cigarettes. She has also had some times of abstinence from meth and other street drugs. Her urine tox upon admit tested positive for meth. It is thought as well that she may have recently returned to smoking cigarettes. Pt had been working with Dr. Francisco in the outpt clinic to reduce her steroids and become more stable from a pulmonary standpoint so that she could have surgery on her arthritic hip. She has also been falling of late, which may be related to this same hip. Pt is noted to have her mother involved in her care. Li Corcoran at [phone]. Mother is in close contact with nursing and other medical staff. Pt also has a dtr listed as Carmela Medina at [phone]. In past [facility] notes, there is reference to her father providing transportation and assistance post dc. His name and number are unknown. Most recent admit shows that pt was voicing concerns for herself due to recent of a friend who was meaningful to her. PC is asked to become involved in this case to provide support to family and pt mother. Mother is next of kin for pt. Although pt does not have POLST, she has indicated to Dr. Francisco that she would not wish to be intubated and on a ventilator. [facility] ventilation/trach may not be consistent with this pt's stated wishes. PC is asked to establish contact with pt mother to provide support during her dtrs very significant illness and through possible oncoming time period to discuss goals of care for pt. P: Palliative care to continue to follow. Yoselin JUAREZ, CCM
[2016-11-12] MEDS ORDERED: Labetalol 5 mg/mL 20 mL Inj IVPUSH PRN (15:35)
[2016-11-12] MEDS: LORazepam 100 mg/100 mL NS 100 MG in IV Premix 100 EACH IV SCH (15:38)
--- NOTE | 2016-11-12 17:31 | NUR ---
Social Work: Continued Discharge Planning D: Pt remains in CCU and on mech vent. Unknown if pt will be able to be extubated. Palliative Care is following and attempting to discuss pt's goals of care with pt's mother. Pt may require Trach/PEG if full treatment is to continue. SOUND MIXER received t/c from pt's [facility] CM Penelope Dean ([phone]) requesting an update. SOUND MIXER provided her with the following information however requested she check in on Tuesday for further details. She states pt has a scheduled [facility] intake/assessment for Tuesday. If the pt is appropriate or pursuing full treatment, they can complete the assessment at bedside. A: Pt who is currently in CCU status. P: Evolving; unknown disposition at this time. SOUND MIXER to follow closely with clinical progress and assist with planning as needed. OSKAR Foy
--- NOTE | 2016-11-12 18:03 | NUR ---
Sedation/respiratory/neuro Nimbex off since 14:00 this afternoon. Fentanyl continued at 175mcg/hr and propofol at 45mcg/kg/min. Grimaces noted with repositioning; otherwise, no purposeful movement observed. PRVC with with 50% fi02 and peep of 10. Oxygen saturation maintained >92%. SR per bus driver/monitor. Normotensive. Lisinopril given as scheduled. Tolerating tube feeding, residuals < 125cc. Mckeon to DD, 2950cc urine output this shift. Insulin gtt continued per policy.
[2016-11-12] MEDS: 0.9% Sodium Chloride 1,000 ML IV SCH (21:18)
[2016-11-13] VITALS (12 sets, daily range): BP systolic 122–168; BP diastolic 58–75; PULSE 67–87; RESP 20–22; O2SAT 96–100
[2016-11-13] MEDS: Insulin Human REGular Inj 100 UNIT in 0.9% Sodium Chloride-Pha MIX 100 ML IV SCH (02:13)
[2016-11-13] MEDS: Propofol Inj 1,000,000 MCG in IV Premix 1 EACH IV SCH ×6 (03:22→23:23)
[2016-11-13] MEDS: fentaNYL 2,500 mCg/250 mL 2,500 MCG in IV Premix 1 EACH IV SCH ×2 (03:23→16:09)
[2016-11-13] MEDS: Chlorhexidine 0.12% 15 mL Oral Solution MT SCH ×5 (03:30→20:05)
[2016-11-13] MEDS: Albuterol-Ipratropium 3 mL Inhalation Solution NEB SCH ×6 (03:57→23:52)
[2016-11-13 05:24] LABS: BASOPHILS % (AUTO) 0.1 % (0-3); EOSINOPHILS % (AUTO) 0.8 % (0-5); MONOCYTES % (AUTO) 10.4 % (4-12); Mean Corpuscular Hemoglobin 23.6 pg (27.0-35.0); NEUTROPHILS % (AUTO) 69.9 % (40-74); Platelet Count 285 bil/L (150-400)
--- NOTE | 2016-11-13 05:46 | NUR ---
P: Bronchospastic coughing on ventilator I: Fentanyl and propofol drips E: RASS -2. Bronchospastic coughing when care given and or sedation lightened. Minimally opens eyes. Unable to make eye contact or track. Does not follow cues. Moving all extremities weakly. Breathes over vent rate w/ care. TF at goal, 60ml residual. NonDka insulin drip. Tele SR. Moderately high BP.
--- NOTE | 2016-11-13 07:38 | PCM.PNMED ---
Subjective Date of Service Nov 13, 2016 Subjective Patient intubated and sedated, ROS is subjective not obtainable. Exam Vital Signs Vital Sign - Last Date Time Temp Pulse Resp B/P Pulse Ox O2 Delivery O2 Flow Rate FiO2 11/13/16 04:30 Ventilator 11/13/16 04:30 37.2 85 158/75 100 50 11/13/16 00:30 20 11/07/16 23:08 8 Intake and Output 11/12/16 11/12/16 11/13/16 Cumulative From/Thru 15:00 23:00 07:00 11/07/16 15:10 - 11/13/16 05:32 Intake Total 1388 ml 1294 ml 93016 ml Output Total 2950 ml 575 ml 54480 ml Balance -1562 ml 719 ml 9248 ml Intake Oral 20 ml IV Total 813 ml 704 ml 24017 ml Tube Feeding 515 ml 560 ml 2743 ml Tube Irrigant 60 ml 30 ml 635 ml Output Urine Total 2950 ml 575 ml 06222 ml Gastric Drainage Total 1700 ml # Bowel Movements 2 2 Exam General: Intubated and sedated, will open eyes slightly to voice but does not track or show any purposeful movement. Cardiovascular: Heart tones difficult to appreciate secondary to body habitus and mechanical ventilation. Regular rate and rhythm. Pulmonary: Bilateral inspiratory and expiratory crackles upper anterior lobes. Abdomen: Bowel tones present. Soft, nontender, nondistended. No hepatosplenomegaly or masses appreciated. Extremities: No clubbing, cyanosis, edema, or lymphadenopathy appreciated. Skin: Multiple scar tissue from previous I and D's. Multiple lesions presumably from digital trauma. Psychiatric: Intubated and sedated Ventilator settings: Tidal volume 350. Respiratory rate 20. FiO2 0.4. PEEP 10. AB11/12/2016 - pH 7.418, pCO2 50.4, pO2 98.6, HCO3 32. IV drips and Sedatives: Propofol 50mcg/kg/hr, Fentanyl 150/mcg/kg/hr IV lines: Right Subclavian Line I&O: last 24 hrs; in + 3098, out 3750, total -652. Total to date; in + 84797, out - 16986, total + 9248 IVs and Medications Medications Reviewed: Medications were reviewed in detail Lab and Diagnostics Result Diagram: 11/13/16 0455 11/13/16 0455 X-Rays, CTs and MRIs Cervical Spine CT 1. No acute cervical spine injury. 2. Superior endplate depression at T4 which is new when compared with the prior cross-sectional study dated 03/21/16. The acuity of this finding is unknown. However, if the patient endorses focal pain in this region, acute compression deformity could be suspected. If further characterization is warranted, noncontrast MRI of the cervicothoracic region may be helpful. 3. "Crazy paving" pattern within the pulmonary apices bilaterally. There is a broad differential for this finding which includes pulmonary edema, ARDS, pulmonary alveolar proteinosis, acute interstitial pneumonia, and bacterial pneumonia. Dictated by: Penelope Granados M.D. on 11/07/2016 at 17:[address] 1. No acute intracranial findings. 2. 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 Dictated by: Penelope Granados M.D. on 11/07/2016 at 16:55 Chest X-ray IMPRESSION: New central venous catheter. Increased bilateral pulmonary radiopacities. Dictated by: Penelope Granados M.D. on 11/07/2016 at 17:34 Chest X-ray IMPRESSION: Status post intubation with the endotracheal tube approximately 2 cm above the tu. Consider retracting the endotracheal tube approximately 2 cm. Dictated by: Penelope Granados M.D. on 11/07/2016 at 20:22 X-RAY CHEST ONE VIEW, PORTABLE IMPRESSION: No significant change from prior examination suggesting pulmonary edema and/or bibasilar pneumonia. X-RAY CHEST ONE VIEW, PORTABLE IMPRESSION: Bilateral lung opacities suggesting pulmonary edema. ARDS cannot be excluded. Assessment & Plan 56-year-old female who suffered a ground-level fall question of a second to hypoxemia with observed saturations on 30% 1. Acute on chronic hypoxemic respiratory failure; present medicines; ongoing -Patient has underlying history of desquamative interstitial pneumonia and COPD ; no hypercarbia noted on admission -Patient was vented due to severe hypoxemia; hypoxemia persists -Patient not tolerating decrease of FiO2; ABG in the morning -Continue diuresis No other changes to the general plan of care. 2. ARDS, concern for hcap; present on admission, ongoing -Patient presents with diffuse pulmonary opacities on chest x-ray, and white count of 22,000; noted that the x-ray may be complicated by underlying lung disease -CXR improved from day of admit -PCR panel is negative; blood cultures negative; strep antigen negative, MRSA negative; sputum negative -Procalcitonin normalized -Discussion with Dr. Francisco today and patient meets PaO2/pO2 requirements for ARDS; she has also had bilateral pulm infiltrates that were previously felt to be due to her interstitial disease The patient is currently on propofol at 15 and fentanyl at 175. She is off from paralytics since yesterday at 1300. The abdomen today is to come down and her fentanyl about 25 mics per hour every 2 hours. She is currently showing no evidence of airway collapse or overt agitation. 3. Idiopathic pulmonary fibrosis with reported COPD; present on admission; ongoing -Patient has a reported history of COPD, however her blood gas did not show any exaggerated signs of hypercapnia; questionable exacerbation -Confirmed IPF by biopsy: desquamative interstitial pneumonia -CXR does not support COPD -On 40mg prednisone daily outpatient -Continue Solu-Medrol from 125mg every 6 hours to daily -Duonebs every 4 hours through the vent Minimal change clinically. No change to general course today. 4.History of methadone/heroin/methamphetamine abuse; ongoing -Patient states that she could have overdosed on her methadone however this would have likely caused hypercapnia which was not seen -Patient currently on Ativan push 5 Anxiety/depression; is on medicine; stable -Patient is on buspirone and fluoxetine outpatient -Continue fluoxetine 6 Type II diabetes; present on medicine; stable -Patient is on metformin at home -A1c is 6.8 -Patient placed on medium correction Blood sugars are stable. 7. Hypertension and tachycardia; ongoing -Possible if this is due to agitation on underlying disease process. Pain Evaluation: Adequate Pain Control GI Prophylaxis: H2 sonu VTE Prophylaxis: Sub-Q Enoxaparin VTE Mechanical Devices: Intermittant Pneumatic CD Resuscitation Status: CPR: Attempt Resuscitation Time spent 40 minutes Dudley Ojeda MD Nov 13, 2016 07:38 LIZZETTE BARTLETT DO Nov 13, 2016 13:30 Dudley Ojeda MD Nov 13, 2016 07:38
[2016-11-13] MEDS: MethylprednisoLONE Sodium Succinate 62.5 mg/mL 2 mL Inj IVPUSH SCH (08:30)
[2016-11-13] MEDS: Polyethylene Glycol (PEG) 17 Gm Powder PO SCH (08:43)
[2016-11-13] MEDS: FLUoxetine 4 mg/mL 118 mL Solution PO SCH (08:43)
--- NOTE | 2016-11-13 09:12 | DRSVH ---
PROCEDURE: X-RAY CHEST ONE VIEW, PORTABLE ([id number]) INDICATIONS: lung disease TECHNIQUE: One view of the chest was acquired. COMPARISON: [facility], CR, XR CHEST 1VW (PORTABLE), 11/12/2016, 5:10. FINDINGS: Surgical changes and devices: Tubes and lines are stable compared to prior examination. Lungs and pleura: Bilateral lung opacities are stable compared to prior examination. Mediastinum: Mediastinal contours appear normal. Heart size is normal. Bones and chest wall: No suspicious bony lesions. Overlying soft tissues appear unremarkable. IMPRESSION: Bilateral lung opacities suggesting pulmonary edema. ARDS cannot be excluded. Dictated by: Sachi Che MD, PhD on 11/13/2016 at 9:10 Approved by: Sachi Che MD, PhD on 11/13/2016 at 9:10
--- NOTE | 2016-11-13 10:57 | NUR ---
NUTRITION FOLLOW-UP: Assess: 56 YO F admitted to CCU with COPD exacerbation, severe hypoxemia, sepsis, and pneumonia, requiring intubation / mechanical ventilation, now meets criteria for ARDS. Patient with underlying history of desquamative interstitial pneumonia, idiopathic pulmonary fibrosis, and COPD; she is not tolerating decrease of FiO2. Diuresis continues. Enteral feeding continues at goal rate, well tolerated, after change of enteral formula to elemental formula. Nimbex discontinued. Patient is full code; pulmonology concerned that potential tracheostomy may not reflect patient's wishes. Palliative team involved. PMHx: Acute on chronic respiratory failure, desquamated interstitial pneumonia, tobacco, psychiatric disorder, HLD, opiate abuse, COPD, depression, asthma, anxiety, influenza A, PTSD. LABS: CO2 34, BUN 35, Cr 0.45, Glu 110, Ca 8.3, PAB 20. MEDICATIONS: Solu-medrol, Lopressor, fentanyl. Propofol rate currently 25.4 ml/hr (671 kcal/d). DIET: NPO. ENTERAL FEEDING: Vital 1.5 @ goal rate 47 ml/hr, providing 1551 kcal/d (2222 kcal/d w/ propofol), 70 g/d protein, and 970 ml/d H2O, meeting 100% of calorie needs, 85% protein needs. GI: BM x 2 today. SKIN: No pressure injuries noted. ANTHROPOMETRICS: Current Wt: 98.1 kg BMI: 37.0 kg/m2, Admit Wt: 94.7 kg, IBW: 54.5 kg. ESTIMATED NEEDS: VENT/BMI Calories: 8783-3800 kcal/day (20-22 kcal/kg BW) Protein: 82-98 g/day (1.5-1.8 g/kg/d IBW) NUTRITION DIAGNOSIS: 1) Inadequate oral intake related to decreased ability to consume sufficient energy as evidenced by NPO/Vent status - IMPROVED WITH ENTERAL FEEDING AT GOAL RATE. INTERVENTION: 1) Will add 1 packet [employer] liquid protein BID to provide 92 g/d protein, meeting 100% of est protein needs 2) Adjust goal rate based on daily propofol rate. MONITOR/EVALUATE: NPO/Vent status, GI, nutrition support, labs, nutrition status, POC. Follow per high nutrition risk guidelines.
--- NOTE | 2016-11-13 13:11 | PCM.PNMED ---
Subjective Date of Service Nov 13, 2016 Subjective Pulmonology/ICU consult: Attending Dr. Ye, requesting provider Dr. Ahn Ms. Casarez is a 56-year-old female with past medical history of COPD, asthma and interstitial lung disease was admitted to the hospital for acute hypoxic respiratory failure secondary to suspected polysubstance use. Overnight: Per nurses note: Pt was bronchospastic and coughing on the ventilator or when care is given or sedation lightened. Continues to not follow commands but can move all extremities weakly. Will overbreathe the vent when receiving care. Patient remains on Nimbex. Exam Vital Signs Vital Sign - Last Date Time Temp Pulse Resp B/P Pulse Ox O2 Delivery O2 Flow Rate FiO2 11/13/16 12:32 93 137/61 98 40 11/13/16 12:27 37.4 22 Mechanical Ventilator 11/07/16 23:08 8 Intake and Output 11/12/16 11/12/16 11/13/16 Cumulative From/Thru 15:00 23:00 07:00 11/07/16 15:10 - 11/13/16 05:32 Intake Total 1388 ml 1294 ml 71057 ml Output Total 2950 ml 575 ml 22639 ml Balance -1562 ml 719 ml 9248 ml Intake Oral 20 ml IV Total 813 ml 704 ml 70439 ml Tube Feeding 515 ml 560 ml 2743 ml Tube Irrigant 60 ml 30 ml 635 ml Output Urine Total 2950 ml 575 ml 63072 ml Gastric Drainage Total 1700 ml # Bowel Movements 2 2 Exam General: Intubated and sedated, will open eyes slightly to voice but does not track or show any purposeful movement. Cardiovascular: Heart tones difficult to appreciate secondary to body habitus and mechanical ventilation. Regular rate and rhythm. Pulmonary: Bilateral inspiratory and expiratory crackles upper anterior lobes. Abdomen: Bowel tones present. Soft, nontender, nondistended. No hepatosplenomegaly or masses appreciated. Extremities: No clubbing, cyanosis, edema, or lymphadenopathy appreciated. Skin: Multiple scar tissue from previous I and D's. Multiple lesions presumably from digital trauma. Psychiatric: Intubated and sedated Ventilator settings: Tidal volume 350. Respiratory rate 20. FiO2 0.4. PEEP 10. AB11/12/2016 - pH 7.418, pCO2 50.4, pO2 98.6, HCO3 32. IV drips and Sedatives: Propofol 50mcg/kg/hr, Fentanyl 150/mcg/kg/hr IV lines: Right Subclavian Line I&O: last 24 hrs; in + 3098, out 3750, total -652. Total to date; in + 49232, out - 79207, total + 9248 IVs and Medications Medications Reviewed: Medications were reviewed in detail Lab and Diagnostics Result Diagram: 11/13/1645411/13/16454 X-Rays, CTs and MRIs Cervical Spine CT 1. No acute cervical spine injury. 2. Superior endplate depression at T4 which is new when compared with the prior cross-sectional study dated 03/21/16. The acuity of this finding is unknown. However, if the patient endorses focal pain in this region, acute compression deformity could be suspected. If further characterization is warranted, noncontrast MRI of the cervicothoracic region may be helpful. 3. "Crazy paving" pattern within the pulmonary apices bilaterally. There is a broad differential for this finding which includes pulmonary edema, ARDS, pulmonary alveolar proteinosis, acute interstitial pneumonia, and bacterial pneumonia. Dictated by: Penelope Granados M.D. on 11/07/2016 at 17:[address] 1. No acute intracranial findings. 2. 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 Dictated by: Penelope Granados M.D. on 11/07/2016 at 16:55 Chest X-ray IMPRESSION: New central venous catheter. Increased bilateral pulmonary radiopacities. Dictated by: Penelope Granados M.D. on 11/07/2016 at 17:34 Chest X-ray IMPRESSION: Status post intubation with the endotracheal tube approximately 2 cm above the tu. Consider retracting the endotracheal tube approximately 2 cm. Dictated by: Penelope Granados M.D. on 11/07/2016 at 20:22 X-RAY CHEST ONE VIEW, PORTABLE IMPRESSION: No significant change from prior examination suggesting pulmonary edema and/or bibasilar pneumonia. Assessment & Plan 56 y/o female past medical history of polysubstance abuse, is claiming of interstitial pneumonitis admitted for acute hypoxemic respiratory failure status post methamphetamine inhalation. Pt surrently propofol 50mcg and fentanyl 150mcg. She remains off of paralytics. 1. Acute (on chronic) hypoxemic respiratory failure - EMS found O2 sats in the 30's and ED found them to be in the 50's. Underlying interstitial pneumonia and COPD as well as desquamative interstitial pneumonia. Patient required intubation and remains on ventilation secondary to prolonged hypoxemia. She still does not tolerate decreases in her FiO2. PCO2 remains high however PO2 is within normal limits and bicarbonate remains elevated. There was likely some dynamic compression of her airways which required increase in her PEEP as well as high-dose steroids - Ventilator adjustments continue, PEEP increased to 10 from 5. - Steroids reduced to Solu-Medrol 125 mg IV daily from 125 every 8. - DuoNeb nebs every 4 - CXR today shows bilateral infiltrates, more basilar predominant overall improved - ABGs 11/12/2016 pH 7.41, PCO2 50, PO2 98, bicarbonate 32 2. Diffuse interstitial pneumonitis, diagnosed by surgical biopsy. - Extensive history of smoking inhalation including cigarettes as well as methamphetamine. - Patient has had a decrease in the title volume with lower pressures. With the decrease in the tidal volume, pressures have come down. She is maintaining adequate ventilation. - Zosyn discontinued - All cultures and serologies to date negative - Pro calcitonin normalized 3. ARDS, concern for hcap; present on admission, ongoing - PaO2/pO2 requirements for ARDS -CXR continues to show bilateral lung opacities. -Leukocytosis, currently 11.7 from a peak of 22. -Negative cultures to date. -Procalcitonin normalized -ABX discontinued. GI Prophylaxis: H2 sonu VTE Prophylaxis: Sub-Q Enoxaparin VTE Mechanical Devices: Intermittant Pneumatic CD Resuscitation Status: CPR: Attempt Resuscitation Attending Statement The patient was seen and examined together with Dr. Hinkle on 11/13/2016 and I agree with the history, exam and plan as outlined in the note above. LIZZETTE HINKLE DO Nov 13, 2016 13:11 Abdiel Ye MD Nov 21, 2016 10:58 6 Type II diabetes; present on medicine; stable -Patient is on metformin at home -A1c is 6.8 -Patient placed on medium correction Blood sugars are stable. 7. Hypertension and tachycardia; ongoing -Possible if this is due to agitation on underlying disease process. -EKG reveals sinus rhythm with prolonged QT -When necessary labetalol and lisinopril started. Hydralazine discontinued GI Prophylaxis: Famotidine DVT prophylaxis: Lovenox GI Prophylaxis: H2 sonu VTE Prophylaxis: Sub-Q Enoxaparin VTE Mechanical Devices: Intermittant Pneumatic CD Resuscitation Status: CPR: Attempt Resuscitation LIZZETTE HINKLE DO Nov 13, 2016 13:11
[2016-11-13] MEDS: LORazepam 100 mg/100 mL NS 100 MG in IV Premix 100 EACH IV SCH (15:38)
--- NOTE | 2016-11-13 16:00 | NUR ---
Agitation/ventilator/sedation Increased restlessness and agitation with lightened sedation early this afternoon, fentanyl at 175mcg/hr and propofol infusing at 50mcg/kg/min. Pt sitting with eyes open, squirming in bed. Asynchronous with ventilator. RR 30s. No improvement noted with propofol and fentanyl boluses. PRN ativan administered and fentanyl titrated up to 250mcg/hr for ventilator tolerance. SR per roustabout head. Normotensive. Will continue to monitor.
[2016-11-13] MEDS: Nystatin 100,000 Unit/Gm 15 Gm Powder TOPICAL SCH (20:05)
[2016-11-13] MEDS: 0.9% Sodium Chloride 1,000 ML IV SCH (21:18)
[2016-11-14] VITALS (15 sets, daily range): BP systolic 92–192; BP diastolic 48–88; PULSE 67–87; RESP 15–24; O2SAT 93–98
[2016-11-14] MEDS: Chlorhexidine 0.12% 15 mL Oral Solution MT SCH ×6 (01:39→20:20)
[2016-11-14] MEDS: fentaNYL 2,500 mCg/250 mL 2,500 MCG in IV Premix 1 EACH IV SCH ×3 (01:40→21:45)
[2016-11-14] MEDS: Propofol Inj 1,000,000 MCG in IV Premix 1 EACH IV SCH ×7 (01:40→21:52)
--- NOTE | 2016-11-14 02:37 | NUR ---
P: Agitation I: propofol and fentanyl drips, HS gabapentin E: Propofol at 50mcg. Fentanyl drip at 250mcg. Gradually lowered fentanyl drip to 220mcg. Pt more awake and able to ask questions. Pt nod yes to her name and no to pain and nausea. Pt not aware in hospital or on breathing machine. Appeared mystified at the question. Dozing so far tonight w/out episodes of agitation. Breathes above vent rate w/ care only. Tele SR. BP stable. UOP javier/green approx 75ml+/hr. NonDka insulin drip. TF w/ residuals of 120ml and 175ml.
[2016-11-14] MEDS: Albuterol-Ipratropium 3 mL Inhalation Solution NEB SCH ×5 (04:30→20:51)
--- NOTE | 2016-11-14 07:41 | PCM.PNMED ---
Subjective Date of Service Nov 14, 2016 Subjective Patient is intubated. She is awake. She does get agitated intermittently and then fights the ventilator. ROS and subjective not obtainable. Exam Vital Signs Vital Sign - Last Date Time Temp Pulse Resp B/P Pulse Ox O2 Delivery O2 Flow Rate FiO2 11/14/16 04:30 36.6 68 20 134/60 95 Mechanical Ventilator 40 Intake and Output 11/13/16 11/13/16 11/14/16 Cumulative From/Thru 15:00 23:00 07:00 11/07/16 15:10 - 11/14/16 05:31 Intake Total 1162 ml 1574 ml 46622 ml Output Total 1000 ml 975 ml 24680 ml Balance 162 ml 599 ml 95534 ml Intake Oral 20 ml IV Total 636 ml 836 ml 99404 ml Tube Feeding 466 ml 638 ml 3847 ml Tube Irrigant 60 ml 100 ml 795 ml Output Urine Total 1000 ml 975 ml 52240 ml Gastric Drainage Total 1700 ml # Bowel Movements 1 2 5 Exam She is intubated and awake. Anicteric sclerae. Neck is supple. Lungs are clear with mostly passive ventilation Heart is regular without murmur gallop or rub Abdomen is soft nontender. Extremities are free of edema. Pedal and radial pulses. Skin is free of rash or lesions. No petechiae. IVs and Medications Medications Reviewed: Medications were reviewed in detail Lab and Diagnostics Result Diagram: 11/13/16 0455 11/13/16 0455 X-Rays, CTs and MRIs Cervical Spine CT 1. No acute cervical spine injury. 2. Superior endplate depression at T4 which is new when compared with the prior cross-sectional study dated 03/21/16. The acuity of this finding is unknown. However, if the patient endorses focal pain in this region, acute compression deformity could be suspected. If further characterization is warranted, noncontrast MRI of the cervicothoracic region may be helpful. 3. "Crazy paving" pattern within the pulmonary apices bilaterally. There is a broad differential for this finding which includes pulmonary edema, ARDS, pulmonary alveolar proteinosis, acute interstitial pneumonia, and bacterial pneumonia. Dictated by: Penelope Granados M.D. on 11/07/2016 at 17:[address] 1. No acute intracranial findings. 2. 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 Dictated by: Penelope Granados M.D. on 11/07/2016 at 16:55 Chest X-ray IMPRESSION: New central venous catheter. Increased bilateral pulmonary radiopacities. Dictated by: Penelope Granados M.D. on 11/07/2016 at 17:34 Chest X-ray IMPRESSION: Status post intubation with the endotracheal tube approximately 2 cm above the tu. Consider retracting the endotracheal tube approximately 2 cm. Dictated by: Penelope Granados M.D. on 11/07/2016 at 20:22 X-RAY CHEST ONE VIEW, PORTABLE IMPRESSION: No significant change from prior examination suggesting pulmonary edema and/or bibasilar pneumonia. X-RAY CHEST ONE VIEW, PORTABLE IMPRESSION: Bilateral lung opacities suggesting pulmonary edema. ARDS cannot be excluded. Assessment & Plan 56-year-old female who suffered a ground-level fall question of a second to hypoxemia with observed saturations on 30% 1. Acute on chronic hypoxemic respiratory failure; present medicines; ongoing -Patient has underlying history of desquamative interstitial pneumonia and COPD ; no hypercarbia noted on admission -Patient was vented due to severe hypoxemia; hypoxemia persists -Patient not tolerating decrease of FiO2; ABG in the morning -Continue diuresis FiO2 0.40 with PEEP of 10. Tidal volume is 350. Her sedation now is down. She is on fentanyl at 150. 2. ARDS, concern for hcap; present on admission, ongoing -Patient presents with diffuse pulmonary opacities on chest x-ray, and white count of 22,000; noted that the x-ray may be complicated by underlying lung disease -CXR improved from day of admit -PCR panel is negative; blood cultures negative; strep antigen negative, MRSA negative; sputum negative -Procalcitonin normalized Continued ventilatory support. She continues to be tenuous for any major changes from the ventilator standpoint. We will check a portable chest x-ray and blood gas this morning. We will see if she tolerates a lower FiO2 this morning now that she is more awake. If not we will need to be sedate. 3. 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 4.History of methadone/heroin/methamphetamine abuse; ongoing -Patient states that she could have overdosed on her methadone however this would have likely caused hypercapnia which was not seen -Patient currently on Ativan push No current evidence of withdrawal. 5 Anxiety/depression; is on medicine; stable -Patient is on buspirone and fluoxetine outpatient -Continue fluoxetine 6 Type II diabetes; present on medicine; stable -Patient is on metformin at home -A1c is 6.8 -Patient placed on medium correction. Blood sugars are stable. Blood sugars are stable. Pain Evaluation: Adequate Pain Control GI Prophylaxis: H2 sonu VTE Prophylaxis: Sub-Q Enoxaparin VTE Mechanical Devices: Intermittant Pneumatic CD Resuscitation Status: CPR: Attempt Resuscitation Time spent 40 minutes Dudley Ojeda MD Nov 14, 2016 07:41
[2016-11-14 07:59] LABS: Mean Corpuscular Hemoglobin 23.5 pg (27.0-35.0); Mean Corpuscular Volume 79.2 fL (81-100)
[2016-11-14] MEDS: MethylprednisoLONE Sodium Succinate 62.5 mg/mL 2 mL Inj IVPUSH SCH (09:03)
[2016-11-14] MEDS: Polyethylene Glycol (PEG) 17 Gm Powder PO SCH (09:04)
[2016-11-14] MEDS: FLUoxetine 4 mg/mL 118 mL Solution PO SCH (09:04)
[2016-11-14] MEDS: Nystatin 100,000 Unit/Gm 15 Gm Powder TOPICAL SCH ×2 (09:04→20:20)
[2016-11-14] MEDS ORDERED: Labetalol 5 mg/mL 20 mL Inj IV ONE (09:55)
--- NOTE | 2016-11-14 10:35 | ABG ---
DateTimeAnalyzed 10:31:00 -_ pH ____7.462 - 7.350 7.450 pCO2 ___48.9__ -mmHg 35.0 45.0 pO2 101 -mmHg 69.0 116 HCO3- ___34.5__ -mmol/L 22.0 26.0 ABE ____9.6__ -mmol/L -2.0 2.0 tHb ___11.2__ -g/dL O2Hb ___95.2__ -% COHb ____1.7__ -% MetHb ____1.0__ -% sO2 ___97.8__ -% FIO2 ___40.0__ -% PEEP ___10.0__ -cmH2O Set_RR ___20.0__ -b/min Vt __350.0__ -L Drawn By as - Date/Time Notified____ 10:34:00 -_ Spontaneous_RR ___20.0__ -b/min Oxygen Device 1 VENTILATOR - Notified By AMS - Notified Whom DR AL MEIR - B 765 -mmHg tO2 ___15.1__ -Vol% Dudley test _Positive -
--- NOTE | 2016-11-14 11:26 | DRSVH ---
PROCEDURE: X-RAY KUB ([id number]) INDICATIONS: tube placement TECHNIQUE: One view of the abdomen acquired. COMPARISON: [facility], CR, XR CHEST 1VW (PORTABLE), 11/14/2016, 10:33. FINDINGS: Surgical changes and devices: Nasogastric tube tip in the stomach. Bowel: Bowel gas pattern is normal. Soft tissues: No suspicious abdominal calcifications. Visualized solid organ contours appear normal in size. Bones: No suspicious bony lesions. Severe right hip joint degeneration. IMPRESSION: Nasogastric tube in stomach. Dictated by: Rey Chavez M.D. on 11/14/2016 at 11:22 Approved by: Rey Chavez M.D. on 11/14/2016 at 11:24
--- NOTE | 2016-11-14 12:58 | DRSVH ---
PROCEDURE: X-RAY CHEST ONE VIEW, PORTABLE ([id number]) INDICATIONS: dyspnea TECHNIQUE: One view of the chest was acquired. COMPARISON: [facility], CR, XR CHEST 1VW (PORTABLE), 11/13/2016, 3:34. FINDINGS: Surgical changes and devices: An endotracheal tube is seen just above the tu, unchanged in positi on. There is a nasogastric tube in stomach. Again noted is a right subclavian central line with the t ip in the atrial caval junction. Lungs and pleura: Bilateral diffuse interstitial and airspace infiltrates suggesting pulmonary edema. No pleural effusions or pneumothorax. There is no significant change. Mediastinum: Mediastinal contours appear normal. Heart size is normal. Bones and chest wall: No suspicious bony lesions. Overlying soft tissues appear unremarkable. IMPRESSION: Stable chest with diffuse pulmonary edema or bilateral pneumonia. Dictated by: Rey Chavez M.D. on 11/14/2016 at 12:54 Approved by: Rey Chavez M.D. on 11/14/2016 at 12:56
[2016-11-14] MEDS: LORazepam 100 mg/100 mL NS 100 MG in IV Premix 100 EACH IV SCH (15:38)
--- NOTE | 2016-11-14 16:20 | PROG NOTE ---
[address] [address] PROGRESS NOTE PATIENT: JONO RODNEY : 1960 MR#: [id number] ADMIT: 11/07/2016 JOB ID: [id number] DATE: 11/14/2016 PULMONARY CRITICAL CARE FOLLOWUP NOTE: PROBLEM LIST 1. Pulmonary fibrosis. 2. Methamphetamine abuse. 3. Nicotine abuse. 4. Depression. SUBJECTIVE: The patient is awake. Agitated with the endotracheal tube. Wants the endotracheal tube out. Understands, at least as well as can be expected, that she will if we remove the endotracheal tube. States that she would prefer the endotracheal tube out and that she at this moment. Fighting the ventilator. Not getting much though appears somewhat comfortable. Parents arrived at this point. We discussed it with them. Mother would like us to continue care at least for few more days. OBJECTIVE: Temperature 37.3, pulse 90, respiratory rate agitated, 24. Blood pressure 147/56, O2 sat on FiO2 30%, PEEP of 10, is 93%. I and O shows 2.4 L in, 1.5 L out. General appearance: Agitated, banging her left leg, wanting the tube out. Obviously not getting much ventilation from the endotracheal tube as the ventilator is limiting out. Re-sedated with her fentanyl 250 and propofol 50 with some control of her behavior. Might very well have to increase the drips. She did well with Ativan 1 mg given last night. Will continue that regimen. Chest: Fair breath sounds. A few scattered crackles. More at the bases. Heart tones seem normal. Abdomen soft. Bowel tones present. Extremities: Maybe 1+ pretibial edema. Warm. LABORATORY DATA: Shows a stable white count of 11,400. Hemoglobin stable at 10.7. Platelet count stable at 291. Sodium 142, potassium 4.1, chloride 98, CO2 33, BUN 28, and decreased creatinine 0.4 and stable. Calcium 8.5 with an albumin of 2.9. Transaminases normal. Chest x-ray continues to show diffuse interstitial and consolidative infiltrates. No particular change. Ventilator waveforms show collapse of the airways on exhalation. However, she is agitated. Not sure of the meaning. Will get her resedated and see what her airways look like. Continue on with aggressive care, as per family's wishes, and I am not sure the patient is able to make clear, thoughtful decisions. ASSESSMENT: 1. Re-sedate the patient. Consider Ativan, if needed. 2. Revisit flow volume loops on ventilator after sedation, if not paralysis needed to control her airway.
--- NOTE | 2016-11-14 19:16 | NUR ---
Assumed care at 1500. Stable on vent and current sedation. Blood sugars 140's to 170. Insulin adjusted per non DKA protocol, alg 4. Good UOP, 1975cc for today. Tube feedings as ordered, stooled earlier today.
[2016-11-14] MEDS: 0.9% Sodium Chloride 1,000 ML IV SCH (21:18)
[2016-11-14] MEDS ORDERED: 0.9% Sodium Chloride 250 ML ONE (21:30)
[2016-11-14] MEDS: Insulin Human REGular Inj 100 UNIT in 0.9% Sodium Chloride-Pha MIX 100 ML IV SCH (21:34)
[2016-11-15] VITALS (14 sets, daily range): BP systolic 123–172; BP diastolic 58–97; PULSE 66–115; RESP 14–24; O2SAT 91–96
[2016-11-15] MEDS: Albuterol-Ipratropium 3 mL Inhalation Solution NEB SCH ×6 (01:20→21:07)
[2016-11-15] MEDS: Propofol Inj 1,000,000 MCG in IV Premix 1 EACH IV SCH ×5 (02:08→13:25)
[2016-11-15] MEDS: Chlorhexidine 0.12% 15 mL Oral Solution MT SCH ×6 (02:08→20:30)
[2016-11-15 05:27] LABS: Mean Corpuscular Hemoglobin 23.5 pg (27.0-35.0); Mean Corpuscular Volume 79.8 fL (81-100)
--- NOTE | 2016-11-15 06:12 | NUR ---
Sedation/Sleep Pt maxed on propofol and fentanyl and will still open eyes and become anxious. Care clistered for limited interruption and to allow optimal rest. Will continue to monitor
[2016-11-15] MEDS: fentaNYL 2,500 mCg/250 mL 2,500 MCG in IV Premix 1 EACH IV SCH ×2 (07:15→17:13)
--- NOTE | 2016-11-15 08:45 | PCM.PNMED ---
Subjective Date of Service Nov 15, 2016 Subjective Patient is awake. She did a hour and a half spontaneous breathing trial 10 out of 10 yesterday. She appears to be relatively calm and is intermittently overbreathing the vent . Exam Vital Signs Vital Sign - Last Date Time Temp Pulse Resp B/P Pulse Ox O2 Delivery O2 Flow Rate FiO2 11/15/16 08:20 84 140/62 93 30 11/15/16 07:47 37.0 18 Mechanical Ventilator Intake and Output 11/14/16 11/14/16 11/15/16 Cumulative From/Thru 15:00 23:00 07:00 11/07/16 15:10 - 11/15/16 06:45 Intake Total 731 ml 1645 ml 85343 ml Output Total 1975 ml 1000 ml 39437 ml Balance -1244 ml 645 ml 9410 ml Intake Oral 20 ml IV Total 731 ml 664 ml 12628 ml Tube Feeding 836 ml 4683 ml Tube Irrigant 145 ml 940 ml Output Urine Total 1975 ml 1000 ml 31333 ml Gastric Drainage Total 1700 ml # Bowel Movements 1 6 Exam Awake, intubated Anicteric sclera. Neck supple. Lungs are clear with good air movement on the anterior side Heart is regular without murmur gallop or rub. Abdomen is soft nontender. Extremities normal. Plus edema. Significant rash or lesions IVs and Medications Medications Reviewed: Medications were reviewed in detail Lab and Diagnostics Result Diagram: 11/15/16 0520 11/15/16 0520 X-Rays, CTs and MRIs Cervical Spine CT 1. No acute cervical spine injury. 2. Superior endplate depression at T4 which is new when compared with the prior cross-sectional study dated 03/21/16. The acuity of this finding is unknown. However, if the patient endorses focal pain in this region, acute compression deformity could be suspected. If further characterization is warranted, noncontrast MRI of the cervicothoracic region may be helpful. 3. "Crazy paving" pattern within the pulmonary apices bilaterally. There is a broad differential for this finding which includes pulmonary edema, ARDS, pulmonary alveolar proteinosis, acute interstitial pneumonia, and bacterial pneumonia. Dictated by: Penelope Granados M.D. on 11/07/2016 at 17:[address] 1. No acute intracranial findings. 2. 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 Dictated by: Penelope Granados M.D. on 11/07/2016 at 16:55 Chest X-ray IMPRESSION: New central venous catheter. Increased bilateral pulmonary radiopacities. Dictated by: Penelope Granados M.D. on 11/07/2016 at 17:34 Chest X-ray IMPRESSION: Status post intubation with the endotracheal tube approximately 2 cm above the tu. Consider retracting the endotracheal tube approximately 2 cm. Dictated by: Penelope Granados M.D. on 11/07/2016 at 20:22 X-RAY CHEST ONE VIEW, PORTABLE IMPRESSION: No significant change from prior examination suggesting pulmonary edema and/or bibasilar pneumonia. X-RAY CHEST ONE VIEW, PORTABLE IMPRESSION: Bilateral lung opacities suggesting pulmonary edema. ARDS cannot be excluded. Assessment & Plan 56-year-old female who suffered a ground-level fall question of a second to hypoxemia with observed saturations on 30% 1. Acute on chronic hypoxemic respiratory failure; POA; ongoing -Patient has underlying history of desquamative interstitial pneumonia and COPD ; no hypercarbia noted on admission -Patient was vented due to severe hypoxemia; hypoxemia persists -Patient not tolerating decrease of FiO2; ABG in the morning -Continue diuresis She continues to be awake and improved with a decreased FiO2. We will perform another breathing trial today. 3. Idiopathic pulmonary fibrosis with reported COPD; present on admission; ongoing -Continue Solu-Medrol from 125mg every 6 hours to daily -Duonebs every 4 hours through the vent 4.History of methadone/heroin/methamphetamine abuse; ongoing -Patient states that she could have overdosed on her methadone however this would have likely caused hypercapnia which was not seen -Patient currently on Ativan push No current evidence of withdrawal. 5 Anxiety/depression; is on medicine; stable -Patient is on buspirone and fluoxetine outpatient -Continue fluoxetine 6 Type II diabetes; present on medicine; stable -Patient is on metformin at home -A1c is 6.8 -Patient placed on medium correction. Blood sugars are stable. 7. Continue GI and DVT prophylaxis. Pain Evaluation: Adequate Pain Control GI Prophylaxis: H2 sonu VTE Prophylaxis: Sub-Q Enoxaparin VTE Mechanical Devices: Intermittant Pneumatic CD Resuscitation Status: CPR: Attempt Resuscitation Time spent 30 minutes Dudley Ojeda MD Nov 15, 2016 08:45
[2016-11-15] MEDS: FLUoxetine 4 mg/mL 118 mL Solution PO SCH (09:29)
[2016-11-15] MEDS: Polyethylene Glycol (PEG) 17 Gm Powder PO SCH (09:29)
[2016-11-15] MEDS: MethylprednisoLONE Sodium Succinate 62.5 mg/mL 2 mL Inj IVPUSH SCH (09:29)
[2016-11-15] MEDS: Nystatin 100,000 Unit/Gm 15 Gm Powder TOPICAL SCH ×2 (09:30→21:26)
--- NOTE | 2016-11-15 09:44 | PCM.PNMED ---
Subjective Date of Service Nov 15, 2016 Subjective Pulmonology/ICU consult: Attending Dr. Ye, requesting provider Dr. Ahn Ms. Casarez is a 56-year-old female with past medical history of COPD, asthma and interstitial lung disease was admitted to the hospital for acute hypoxic respiratory failure secondary to suspected polysubstance use. Overnight: Per nurse's note patient has been on maximum doses of propofol and fentanyl was still open eyes become anxious. Patient is arousable to voice, will open eyes and follow commands. She is able to move extremities on command and nod or shake when asked questions. Exam Vital Signs Vital Sign - Last Date Time Temp Pulse Resp B/P Pulse Ox O2 Delivery O2 Flow Rate FiO2 11/15/16 08:20 84 140/62 93 30 11/15/16 07:47 37.0 18 Mechanical Ventilator Intake and Output 11/14/16 11/14/16 11/15/16 Cumulative From/Thru 15:00 23:00 07:00 11/07/16 15:10 - 11/15/16 06:45 Intake Total 731 ml 1645 ml 95690 ml Output Total 1975 ml 1000 ml 23766 ml Balance -1244 ml 645 ml 9410 ml Intake Oral 20 ml IV Total 731 ml 664 ml 34963 ml Tube Feeding 836 ml 4683 ml Tube Irrigant 145 ml 940 ml Output Urine Total 1975 ml 1000 ml 38024 ml Gastric Drainage Total 1700 ml # Bowel Movements 1 6 Exam General: Intubated and sedated, will open eyes to voice and is able to follow commands (wiggling digits) and nod or shake head when asked questions. Cardiovascular: Heart tones difficult to appreciate secondary to body habitus and mechanical ventilation. Regular rate and rhythm. Pulmonary: Bilateral inspiratory and expiratory crackles upper anterior lobes. Abdomen: Soft, nontender, nondistended. No hepatosplenomegaly or masses appreciated. Extremities: Lower extremity edema. Skin: Multiple scar tissue from previous I&D's. Multiple lesions presumably from digital trauma. Ventilator settings: Tidal volume 350. Respiratory rate 18. FiO2 0.3. PEEP 10. IV drips and Sedatives: Propofol 50mcg/kg/hr, Fentanyl 250/mcg/kg/hr IV lines: Right Subclavian Line I&O: last 24 hrs; in + 2305, out 2950, total -645. Total to date; in + 24028, out - 51779, total + 9410 IVs and Medications Medications Reviewed: Medications were reviewed in detail Lab and Diagnostics Result Diagram: 11/15/16 0520 11/15/16 0520 X-Rays, CTs and MRIs Cervical Spine CT 1. No acute cervical spine injury. 2. Superior endplate depression at T4 which is new when compared with the prior cross-sectional study dated 03/21/16. The acuity of this finding is unknown. However, if the patient endorses focal pain in this region, acute compression deformity could be suspected. If further characterization is warranted, noncontrast MRI of the cervicothoracic region may be helpful. 3. "Crazy paving" pattern within the pulmonary apices bilaterally. There is a broad differential for this finding which includes pulmonary edema, ARDS, pulmonary alveolar proteinosis, acute interstitial pneumonia, and bacterial pneumonia. Dictated by: Penelope Granados M.D. on 11/07/2016 at 17:[address] 1. No acute intracranial findings. 2. 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 Dictated by: Penelope Granados M.D. on 11/07/2016 at 16:55 Chest X-ray IMPRESSION: New central venous catheter. Increased bilateral pulmonary radiopacities. Dictated by: Penelope Granados M.D. on 11/07/2016 at 17:34 Chest X-ray IMPRESSION: Status post intubation with the endotracheal tube approximately 2 cm above the tu. Consider retracting the endotracheal tube approximately 2 cm. Dictated by: Penelope Granados M.D. on 11/07/2016 at 20:22 X-RAY CHEST ONE VIEW, PORTABLE IMPRESSION: No significant change from prior examination suggesting pulmonary edema and/or bibasilar pneumonia. X-RAY CHEST ONE VIEW, PORTABLE IMPRESSION: Bilateral lung opacities suggesting pulmonary edema. ARDS cannot be excluded. Assessment & Plan 56 y/o female past medical history of polysubstance abuse, is claiming of interstitial pneumonitis admitted for acute hypoxemic respiratory failure status post methamphetamine inhalation. Pt currently propofol 50mcg and fentanyl 250mcg. She remains off of paralytics. 1. Acute (on chronic) hypoxemic respiratory failure - EMS found O2 sats in the 30's and ED found them to be in the 50's. Underlying interstitial pneumonia and COPD as well as desquamative interstitial pneumonia. Patient required intubation and remains on ventilation secondary to prolonged hypoxemia. She has tolerated some decrease in her FiO2. Continues to have some dynamic compression of her airways which requires in increased PEEP and high dose steroids. - Ventilator adjustments continue, PEEP remains at 10 - Solu-Medrol 125 mg IV daily - DuoNeb nebs every 4 - CXR - Stable chest with diffuse pulmonary edema or bilateral pneumonia - ABGs 11/14/2016 pH 7.46, PCO2 48.9, PO2 101, bicarbonate 34.5 2. Diffuse interstitial pneumonitis, diagnosed by surgical biopsy. - Extensive history of smoking inhalation including cigarettes as well as methamphetamine. - Title volume remains 350 with PEEP at 10, maintaining adequate ventilation - Zosyn discontinued - All cultures and serologies to date negative - Pro calcitonin normalized 3. ARDS, concern for hcap; present on admission, ongoing - PaO2/pO2 requirements for ARDS -CXR continues to show bilateral lung opacities. -Leukocytosis, currently 11.7 from a peak of 22. -Negative cultures to date. -Procalcitonin normalized, will repeat -ABX discontinued. Disposition: Patient has made it known to home performance laborer that she does not wish to be intubated, however patient's mother states that she does wish patient to be intubated. Pulmonologists and primary team will consider extubation trial and see how patient responds, the question will need to be answered before this is done if the patient wishes to be reintubated if she returns to hypoxemic respiratory failure. She did have an hour and a half spontaneous breathing trial 10 out of 10. GI Prophylaxis: H2 sonu VTE Prophylaxis: Sub-Q Enoxaparin VTE Mechanical Devices: Intermittant Pneumatic CD Resuscitation Status: CPR: Attempt Resuscitation Attending Statement The patient was seen and examined together with Dr. Hinkle on 11/15/2016 and I agree with the history, exam and plan as outlined in the note above. LIZZETTE HINKLE DO Nov 15, 2016 09:44 Abdiel Ye MD Nov 21, 2016 11:04
--- NOTE | 2016-11-15 10:09 | NUR ---
NUTRITION FOLLOW-UP: Assess: 56 YO F admitted to CCU with COPD exacerbation, severe hypoxemia, sepsis, and pneumonia, requiring intubation/mechanical ventilation, now meets criteria for ARDS. Breathing trials continue. Enteral feeding continues at goal rate, well tolerated. Palliative team involved. PMHx: Acute on chronic respiratory failure, desquamated interstitial pneumonia, tobacco, psychiatric disorder, HLD, opiate abuse, COPD, depression, asthma, anxiety, influenza A, PTSD. LABS: Cr 0.43, Glu 127, Ca 8.2, Alb 3.0 MEDICATIONS: Solu-medrol, Pressor, Miralax, fentanyl. Propofol rate currently 29 ml/hr (766 kcal/day). DIET: NPO. ENTERAL FEEDING: Vital 1.5 @ goal rate 47 ml/hr + 2 packets Prosource, providing 1551 kcal/d (2317 kcal/d w/ propofol), 92 g/d protein, and 970 ml/d H2O, meeting 100% of calorie needs, 100% protein needs. GI: BM x 1 (11/15). SKIN: No pressure injuries noted. ANTHROPOMETRICS: Current Wt: 98.0 kg BMI: 37.1 kg/m2, Admit Wt: 94.7 kg, IBW: 54.5 kg. ESTIMATED NEEDS: VENT/BMI Calories: 3582-9001 kcal/day (20-22 kcal/kg BW) Protein: 82-98 g/day (1.5-1.8 g/kg/d IBW) NUTRITION DIAGNOSIS: 1) Inadequate oral intake related to decreased ability to consume sufficient energy as evidenced by NPO/Vent status - IMPROVED WITH ENTERAL FEEDING AT GOAL RATE. INTERVENTION: 1) Continue current TF as ordered. 2) Adjust goal rate based on daily propofol rate. MONITOR/EVALUATE: NPO/Vent status, GI, nutrition support, labs, nutrition status, POC. Follow per high nutrition risk guidelines.
[2016-11-15] MEDS: LORazepam 100 mg/100 mL NS 100 MG in IV Premix 100 EACH IV SCH (13:18)
--- NOTE | 2016-11-15 14:29 | ABG ---
DateTimeAnalyzed 14:25:00 -_ pH ____7.483 - 7.350 7.450 pCO2 ___45.7__ -mmHg 35.0 45.0 pO2 ___77.1__ -mmHg 69.0 116 HCO3- ___33.9__ -mmol/L 22.0 26.0 ABE ____9.5__ -mmol/L -2.0 2.0 tHb ___11.6__ -g/dL O2Hb ___92.9__ -% COHb ____1.8__ -% MetHb ____1.0__ -% sO2 ___95.6__ -% FIO2 ___30.0__ -% CPAP ___10.0__ -cmH2O PEEP ____5.0__ -cmH2O Vt __700.0__ -L Drawn By JJ - Date/Time Notified____ 14:28:00 -_ Spontaneous_RR ___14.0__ -b/min Oxygen Device 1 VENTILATOR - Notified By JJ - Notified Whom _DR HOEFT - B 756 -mmHg tO2 ___15.2__ -Vol% Dudley test _Positive -
[2016-11-15] MEDS ORDERED: Atropine 1% 5 mL Ophthalmic Solution PO PRN (14:40)
[2016-11-15] MEDS ORDERED: LORazepam 100 mg/100 mL NS 100 MG in IV Premix 1 EACH IV PRN (14:40)
[2016-11-15] MEDS ORDERED: LORazepam Inj 100 MG in 0.9% Sodium Chloride 50 ML IV PRN (15:05)
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
--- NOTE | 2016-11-15 16:00 | NUR ---
faxed clinicals to Yolanda Turcios per [employer]. -updated [employer]
[2016-11-15] MEDS ORDERED: Glucose 40% Oral Gel 15 Gm Tube PO PRN ×2 (17:20)
--- NOTE | 2016-11-15 19:18 | NUR ---
Extubation/Oxygen/Agitation: Pt was extubated at 1140 this morning. Pt was placed on 6L NC initially and was coached on breathing exercises. SpO2 low to mid 90's on 4L NC. Pt became agitated shortly after extubation when her parents were in the room and was demanding to go home. Pt is attempting to get OOB without assistance, very restless agitated and yelling out. Restraints remain in place for patient safety and Ativan pushes PRN. Report given to OZZIE GOLDEN. Addendum: 11/15/16 at 1928 by SYLVIA SUTHERLAND RN Correction: pt was extubated at 1440 not 1140.
[2016-11-15] MEDS ORDERED: Insulin LISPRO 300 Unit/3 mL Inj SUBQ SCH (20:30)
[2016-11-15] MEDS: Insulin LISPRO 300 Unit/3 mL Inj SUBQ SCH (21:32)
--- NOTE | 2016-11-15 22:45 | NUR ---
Transfer Pt transferred to [facility] RM 2023, Report given to CHICO Paredes. Pt alert to self and place. Pt yelling out wanting to go home. Pt currently NPO post extubation and requiring swallow evaluation from Speech Therapy.
--- NOTE | 2016-11-15 22:57 | NUR ---
transfer to [facility]: Received report from Sunil RN pt. awake, remains confused thinks it's Aug 1962, pt. stating "I just want to go home". pt. restless, agitated, 2mg iv ativan given. wrist restraints on for patient safety.
[2016-11-16] VITALS (14 sets, daily range): BP systolic 137–184; BP diastolic 76–107; PULSE 87–112; RESP 14–20; O2SAT 90–98
[2016-11-16] MEDS: Insulin LISPRO 300 Unit/3 mL Inj SUBQ SCH ×4 (00:29→20:30)
[2016-11-16] MEDS: Chlorhexidine 0.12% 15 mL Oral Solution MT SCH ×5 (00:29→16:33)
[2016-11-16] MEDS: Albuterol-Ipratropium 3 mL Inhalation Solution NEB SCH ×6 (00:38→21:02)
--- NOTE | 2016-11-16 08:32 | NUR ---
Social Work Note: Continued Discharge Planning Data& Assessment: Pt has been extubated. Per documentation supervisor, pt is very agitated at this time and requiring restraints for safety. SW to follow up with pt regarding CD assessment and discharge planning when appropriate. SW received phone call from Yolanda Turcios with [facility] requesting clinicals and explaining she will be by for the bedside assessment tomorrow 11/17/2016. Clinicals faxed. SW to notify Yolanda Turcios ) if pt mentation has not improved by tomorrow morning for the assessment. SW to continue to follow. Plan: Pt is extubated. SW to follow up with pt regarding CD assessment and discharge planning when appropriate. [facility] assessment tomorrow 11/17/2016. SW to continue to follow. OSKAR Vee
--- NOTE | 2016-11-16 09:28 | NUR ---
Evaluation completed. Please go to "Notes" then click on "Assessments and Notes" (bottom left corner of screen). Then select appropriate discipline tab on top of screen.
[2016-11-16] MEDS: MethylprednisoLONE Sodium Succinate 62.5 mg/mL 2 mL Inj IVPUSH SCH (09:44)
[2016-11-16] MEDS: Nystatin 100,000 Unit/Gm 15 Gm Powder TOPICAL SCH ×2 (09:46→21:27)
[2016-11-16] MEDS: Polyethylene Glycol (PEG) 17 Gm Powder PO SCH (09:47)
[2016-11-16] MEDS: Methadone 10 mg/mL Oral Concentrate PO SCH ×2 (11:36→16:33)
--- NOTE | 2016-11-16 12:09 | PCM.PALLBR ---
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 Extubated successfully on 11/15 Palliative medicine consulted to assist with determination of goals of care and reconciliation of patient and family wishes. Summary of palliative recommendations: -Symptom management (Pain/other)- continue use of prn medications for discomfort per medical team. Reviewed her chronic methadone use with Dr. Ojeda and he will order methadone, initially 10 mg TID with titration upwards as needed. I will continue to follow and support as well. -DPOA/Advanced Directives/POLST- DO NOT RESUSCITATE/DO NOT INTUBATE/limited interventions. Will plan on completing a POLST prior to discharge that reflects her wishes. Per patient (and with her mother's agreement) not a candidate for reintubation -Family/emotional support- palliative medicine will continue to follow and provide support as able Additional Medical Diagnoses with primary management by Hospitalist team include : 1. Acute (on chronic) hypoxemic respiratory failure - EMS found O2 sats in the 30's and ED found them to be in the 50's. Underlying interstitial pneumonia and COPD as well as desquamative interstitial pneumonia. Patient required intubation and remains on ventilation secondary to prolonged hypoxemia. She has tolerated some decrease in her FiO2. Continues to have some dynamic compression of her airways which requires in increased PEEP and high dose steroids. 2. Diffuse interstitial pneumonitis, diagnosed by surgical biopsy. 3. ARDS, concern for hcap; present on admission, ongoing Problems: End of Life Preferences DO NOT RESUSCITATE/DO NOT INTUBATE/limited interventions Goals of Care Per patient, discharge to home as soon as possible Disposition To be determined Resuscitation Status Resuscitation Status: DNR/DNI:Do Not Resuscitate/Intubate POLST Updates/Changes Previous POLST?: No Total time 40 minutes; >50% face to face with patient, providing counselling regarding plans and recommendations, and in care coordination with her medical teams. Palliative Brief Note Date of Service Nov 16, 2016 . Returned to reevaluate patient. Prior to visiting, reviewed her updated records in the EMR in detail, spoke with her bedside nurse on several occasions and with her hospitalist Dr. Ojeda. Patient was successfully extubated yesterday. Almost immediately after extubation, began insisting she be discharged and began swearing at staff. This morning, she continues to be restless and angry, demanding she be discharged immediately. Swears at me when I tried to explain why that was not possible. Is awaiting speech therapy evaluation and potential advancement of diet. Complains of pain all over (she chronically uses methadone 90 mg every morning). Denies any significant shortness of breath or other symptoms, but perseverates on her insistence that she be discharged immediately. On exam, restless woman lying in bed. Vital signs noted. Skin is warm and dry. Color is good. Head and neck exam without acute findings. Lungs clear anterolaterally though with diminished breath sounds diffusely. Heart sounds rapid and regular. Abdomen soft and nontender. Moves all extremities well. Laboratory studies reviewed in detail. Edin Winkler MD Nov 16, 2016 12:09
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
[2016-11-16] MEDS: FLUoxetine 4 mg/mL 118 mL Solution PO SCH (13:12)
--- NOTE | 2016-11-16 15:58 | NUR ---
Evaluation completed. Please go to "Notes" then click on "Assessments and Notes" (bottom left corner of screen). Then select appropriate discipline tab on top of screen.
--- NOTE | 2016-11-16 17:38 | NUR ---
Pain/Resp/Activity Patient a/o to self, calling out for help throughout the shift. Patient c/o gen pain, Methadone restarted. Patient requesting Ativan freq, given q 2 hr with moderate effect. Lungs decreased bilat. O2 changed to 2 L oxymask sat 92-94%. Recieving neb tx scheduled per RTC. Patient turned q 2hr, only able to dangle with max assist of PT. Redness noted in bilat groins and left axilla area, meds applied. Linda patent, javier uop. Will cont poc.
--- NOTE | 2016-11-16 22:51 | NUR ---
Mentation/Medication Administration Pt crying and yelling to go home. Pt redirected to place and importance of being cared for in the hospital. Pt given PRN Ativan and Morphine. Pt given HS medications crushed in applesauce. Pt ate applesauce without issue. Pt settled and asleep. RN called mother to update.
[2016-11-17] VITALS (12 sets, daily range): BP systolic 110–162; BP diastolic 69–95; PULSE 85–114; RESP 17–22; O2SAT 90–96
[2016-11-17] MEDS: Albuterol-Ipratropium 3 mL Inhalation Solution NEB SCH ×7 (00:30→23:16)
[2016-11-17] MEDS: Methadone 10 mg/mL Oral Concentrate PO SCH ×4 (02:22→21:59)
[2016-11-17] MEDS: Insulin LISPRO 300 Unit/3 mL Inj SUBQ SCH ×4 (02:30→20:30)
[2016-11-17] MEDS: Polyethylene Glycol (PEG) 17 Gm Powder PO SCH (09:22)
[2016-11-17] MEDS: MethylprednisoLONE Sodium Succinate 62.5 mg/mL 2 mL Inj IVPUSH SCH (09:23)
[2016-11-17] MEDS: FLUoxetine 4 mg/mL 118 mL Solution PO SCH (09:25)
[2016-11-17] MEDS: Nystatin 100,000 Unit/Gm 15 Gm Powder TOPICAL SCH ×2 (09:26→20:30)
--- NOTE | 2016-11-17 11:53 | PCM.PALLBR ---
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 Extubated successfully on 11/15 Palliative medicine consulted to assist with determination of goals of care and reconciliation of patient and family wishes. See below for additional details of my lengthy conversations with her mother and daughter on 11/17 regarding wishes for care. Summary of palliative recommendations: -Symptom management (Pain/other)- continue use of prn medications for discomfort per medical team. Reviewed her chronic methadone use with Dr. Ojeda and he has restarted methadone, initially 10 mg TID with titration upwards as needed. Palliative will continue to follow and support as well. -DPOA/Advanced Directives/POLST- DO NOT RESUSCITATE/DO NOT INTUBATE/limited interventions. Today, following confirmation of this with the patient's daughter/POA Carmela and her mother Li, I filled out a new POLST which Paola will sign when she visits the hospital next time. This document is in the front of the patient's paper chart outside her room. Per patient (and with her mother's agreement) not a candidate for reintubation -Family/emotional support- palliative medicine will continue to follow and provide support as able Additional Medical Diagnoses with primary management by Hospitalist team include : 1. Acute (on chronic) hypoxemic respiratory failure - 2. Diffuse desquamative interstitial pneumonitis, diagnosed by surgical biopsy. 3. ARDS, concern for hcap; present on admission, ongoing Problems: End of Life Preferences DO NOT RESUSCITATE/DO NOT INTUBATE/limited interventions Goals of Care Per patient, discharge to home as soon as possible Disposition To be determined- it is almost a certainty that she will require SNF placement Resuscitation Status Resuscitation Status: DNR/DNI:Do Not Resuscitate/Intubate POLST Updates/Changes Previous POLST?: No POLST Review Outcome: New Form Completed (requires signature by her POA/ daughter Carmela) . Advanced Care Planning Address: POLST, Durable Power of [place]ener Pain: Mild Symptom management: Agitation, Dyspnea, Pain, Delirium Total time 80 minutes; >50% face to face with patient and family, providing counselling regarding plans and recommendations, and in care coordination with her medical teams. Of the above total time, 50 minutes counseling for advanced care planning with the patient's family members, reviewing the patient's wishes and their wishes and then completing new documentation copies to: Sophy Francisco MD; Martha Lanza Palliative Brief Note Date of Service Nov 17, 2016 . Returned to reevaluate patient. Prior to visiting, reviewed her updated records in the EMR in detail and spoke with her bedside nurse. I also spoke at length by phone with her mother and then with her daughter, Carmela Ivy. When I arrived, patient is lying in bed, still restrained. She appears a little bit more tractable today, but all questions quickly are met with demands that she be discharged home immediately. She seems unable to integrate information about her medical status into her demands. Insists that she discharges home, refuses to consider SNF for further placement, despite still requiring significant medical support and having significant weakness that would make it impossible for her to function at home. On exam, vital signs noted. Skin is pink warm and dry. Head and neck exam without acute changes. Lungs clear anterolaterally, heart sounds regular, abdomen soft and nontender. Extremities without pitting edema. No focal neurologic problems evident. Lab and imaging studies reviewed. Spoke at length with her mother, reviewing patient's status with her, answering questions she had. She now fully agrees with other family members that the patient should not ever again be intubated. She gave me the patient's daughter' s new name ( last month) and new phone number (which I have passed along to community health planning director to get updated in the Contacts section of the EMR). I then called and spoke at length with the patient's daughter Carmela who is default POA. Reviewed patient's course to this time, our evolving treatment plans, the patient's almost certain need for SNF placement, etc. We also spoke at length about the patient and family wishes for advanced resuscitation/care in the future. Carmela notes that all family members except the patient's mother had long ago accepted the fact that she should not be resuscitated (which has been the patient's expressed wish for some time but which her mother disagreed with). Carmela was glad that Ms. Corcoran is now willing to accept the patient's wishes, and she fully supported CODE STATUS be DO NOT RESUSCITATE/DO NOT INTUBATE/limited interventions. Edin Winkler MD Nov 17, 2016 11:53
--- NOTE | 2016-11-17 13:34 | NUR ---
NUTRITION FOLLOW-UP: Assess: 56 YO F admitted to CCU with COPD exacerbation, severe hypoxemia, sepsis, and pneumonia, requiring intubation/mechanical ventilation. Pt. 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 She was extubated successfully 11/15. Diet advanced to stimulation texture, where it remains. Stimulation diet does not meet nutrient needs to any significant extent, and it appears unlikely that diet will be advanced in timely manner. PMHx: Acute on chronic respiratory failure, desquamated interstitial pneumonia, tobacco, psychiatric disorder, HLD, opiate abuse, COPD, depression, asthma, anxiety, influenza A, PTSD. LABS:CO2 32, Cr 0.43, Glu 127, Ca 8.2, Alb 3.0. MEDICATIONS: Solu-medrol, methadone, insulin. DIET: Stimulation. ENTERAL FEEDING DISCONTINUED: Vital 1.5 @ goal rate 47 ml/hr + 2 packets Prosource, providing 1551 kcal/d (2317 kcal/d w/ propofol), 92 g/d protein, and 970 ml/d H2O, meeting 100% of calorie needs, 100% protein needs. GI: BM x 2 (11/15). SKIN: No pressure injuries noted. ANTHROPOMETRICS: Current Wt: 103.8 kg BMI: 39.0 kg/m2, Admit Wt: 94.7 kg, IBW: 54.5 kg. ESTIMATED NEEDS: BMI Calories: 8537-1712 kcal/day (20-22 kcal/kg BW) Protein: 82-98 g/day (1.5-1.8 g/kg/d IBW) NUTRITION DIAGNOSIS: 1) Inadequate oral intake related to decreased ability to consume sufficient energy as evidenced by NPO/Vent status - PERSISTS WITH DIET UNABLE TO BE ADVANCED BEYOND STIMULATION TEXTURE. INTERVENTION: 1) Nutrition support will likely be the only means to provide the patient with adequate nutrition to meet her needs. Suggest enteral feeding be restarted per previous recommendations. MONITOR/EVALUATE: Diet advance / tolerance, PO intake, GI, nutrition support, labs, nutrition status, POC. Follow per high nutrition risk guidelines.
--- NOTE | 2016-11-17 14:41 | DRSVH ---
CORRECTED PATIENT MR NUMBER ON 11/17/16 PROCEDURE: X-RAY CHEST ONE VIEW, PORTABLE ([id number]) INDICATIONS: falls, pain TECHNIQUE: One view of the chest was acquired. COMPARISON: [facility], CR, XR CHEST 2VW, 11/03/2016, 12:23. FINDINGS: Surgical changes and devices: None. Lungs and pleura: There are diffuse interstitial opacities bilaterally which are new when compared wi th the prior study dated 11/03/16. These are confluent within the right midlung. No pleural effusion o r pneumothorax. Mediastinum: Mediastinal contours appear normal. Heart size is enlarged, as before. Bones and chest wall: No suspicious bony lesions. Overlying soft tissues appear unremarkable. IMPRESSION: 1. Diffuse interstitial opacities. Differential considerations include ARDS and pulmonary edema. Bethanie id pneumonia could also be considered in the appropriate differential. Dictated by: Penelope Granados M.D. on 11/07/2016 at 17:09 Approved by: Penelope Granados M.D. on 11/07/2016 at 17:10
--- NOTE | 2016-11-17 14:44 | DRSVH ---
CORRECTED PATIENT MR NUMBER ON 11/17/16 PROCEDURE: X-RAY PELVIS W/LAT HIP (RT) ([id number]) INDICATIONS: falls, pain TECHNIQUE: AP pelvis with lateral view(s) of the right hip(s). COMPARISON: None. FINDINGS: Bones: Severe degenerative changes are present at the right hip joint. There is [id number] joint sp primitivo narrowing and deformity and sclerosis of the femoral head. No acute fracture or dislocation. Soft tissues: The visualized bowel gas pattern is normal. No suspicious soft tissue calcifications. IMPRESSION: Severe degenerative change of the right femoral head. No acute fracture dislocation. If t here is high clinical suspicion for occult fracture, CT of the pelvis is recommended. Dictated by: Penelope Granados M.D. on 11/07/2016 at 17:07 Approved by: Penelope Granados M.D. on 11/07/2016 at 17:08
--- NOTE | 2016-11-17 16:03 | PCM.PNMED ---
Subjective Date of Service Nov 17, 2016 Subjective Patient is currently resting comfortably. Exam Vital Signs Vital Sign - Last Date Time Temp Pulse Resp B/P Pulse Ox O2 Delivery O2 Flow Rate FiO2 11/17/16 15:41 87 96 OxyMask 1.50 11/17/16 12:20 36.8 20 162/95 11/17/16 03:40 94 Intake and Output 11/16/16 11/16/16 11/17/16 Cumulative From/Thru 15:00 23:00 07:00 11/07/16 15:10 - 11/17/16 05:25 Intake Total 0 ml 0 ml 89714 ml Output Total 3500 ml 600 ml 04981 ml Balance -3500 ml -600 ml 1014 ml Intake Oral 0 ml 0 ml 20 ml IV Total 32754 ml Tube Feeding 5002 ml Tube Irrigant 980 ml Output Urine Total 3500 ml 600 ml 70040 ml Gastric Drainage Total 1700 ml # Bowel Movements 0 7 Exam Constitutional: Middle-aged woman who looks older than her stated age Chest: decreased breath sounds at her bases Cor: Regular rate and rhythm S1-S2 Abdomen: Soft nontender bowel sounds present Extremities: No pedal edema Lab and Diagnostics Laboratory Tests 72 Hours Test 11/15/16 05:20 White Blood Count 10.8th/mm3 (3.8-10.1) Red Blood Count 4.30mil/mm3 (3.90-5.20) Hemoglobin 10.1g/dL (12.0-15.6) Hematocrit 34.3% (35.0-46.0) Mean Corpuscular Volume 79.8fL (81-100) Mean Corpuscular Hemoglobin 23.5pg (27.0-35.0) Mean Corpuscular Hemoglobin Concent 29.4% (32.0-37.0) Red Cell Distribution Width 20.5% (12.3-15.4) Platelet Count 258bil/L (150-400) Sodium Level 141mEq/L (134-144) Potassium Level 3.9mEq/L (3.5-5.2) Chloride Level 99mEq/L (97-108) Carbon Dioxide Level 32mmol/L (18-29) Blood Urea Nitrogen 23mg/dL (6-24) Creatinine 0.43mg/dL (0.57-1.00) Estimat Glomerular Filtration Rate 217mL/min (>59) Glucose Level 127mg/dL (60-99) Calcium Level 8.2mg/dL (8.5-10.1) Total Bilirubin 0.3mg/dL (0.0-1.2) Aspartate Amino Transf (AST/SGOT) 16U/L (0-50) Alanine Aminotransferase (ALT/SGPT) 23U/L (0-32) Alkaline Phosphatase 91U/L (25-150) Total Protein 4.9g/dL (6.4-8.4) Albumin 3.0g/dL (3.4-5.0) Result Diagram: 11/15/1651911/15/16519 X-Rays, CTs and MRIs Cervical Spine CT 1. No acute cervical spine injury. 2. Superior endplate depression at T4 which is new when compared with the prior cross-sectional study dated 03/21/16. The acuity of this finding is unknown. However, if the patient endorses focal pain in this region, acute compression deformity could be suspected. If further characterization is warranted, noncontrast MRI of the cervicothoracic region may be helpful. 3. "Crazy paving" pattern within the pulmonary apices bilaterally. There is a broad differential for this finding which includes pulmonary edema, ARDS, pulmonary alveolar proteinosis, acute interstitial pneumonia, and bacterial pneumonia. Dictated by: Penelope Granados M.D. on 11/07/2016 at 17:[address] 1. No acute intracranial findings. 2. 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 Dictated by: Penelope Granados M.D. on 11/07/2016 at 16:55 Chest X-ray IMPRESSION: New central venous catheter. Increased bilateral pulmonary radiopacities. Dictated by: Penelope Granados M.D. on 11/07/2016 at 17:34 Chest X-ray IMPRESSION: Status post intubation with the endotracheal tube approximately 2 cm above the tu. Consider retracting the endotracheal tube approximately 2 cm. Dictated by: Penelope Granados M.D. on 11/07/2016 at 20:22 X-RAY CHEST ONE VIEW, PORTABLE IMPRESSION: No significant change from prior examination suggesting pulmonary edema and/or bibasilar pneumonia. X-RAY CHEST ONE VIEW, PORTABLE IMPRESSION: Bilateral lung opacities suggesting pulmonary edema. ARDS cannot be excluded. Assessment & Plan 56 y/o female past medical history of polysubstance abuse, is claiming of interstitial pneumonitis admitted for acute hypoxemic respiratory failure status post methamphetamine inhalation. Pt currently propofol 50mcg and fentanyl 250mcg. She remains off of paralytics. 1. Acute (on chronic) hypoxemic respiratory failure - EMS found O2 sats in the 30's and ED found them to be in the 50's. Underlying interstitial pneumonia and COPD as well as desquamative interstitial pneumonia. Patient required intubation and remains on ventilation secondary to prolonged hypoxemia. She has tolerated some decrease in her FiO2. Continues to have some dynamic compression of her airways which requires in increased PEEP and high dose steroids. - Ventilator adjustments continue, PEEP remains at 10 - Solu-Medrol 125 mg IV daily - DuoNeb nebs every 4 - CXR - Stable chest with diffuse pulmonary edema or bilateral pneumonia Patient was extubated yesterday and is doing relatively well. No blood gases since that time. There is no pain for reintubation as the patient is against this. Is was ascertained and documented by palliative care medicine yesterday. Her mother is aware of these wishes. At this point she appears to be doing relatively well on low flow oxygen nasal cannula. We will need to work on longterm facility placement. 2. Diffuse interstitial pneumonitis, diagnosed by surgical biopsy. - Extensive history of smoking inhalation including cigarettes as well as methamphetamine. - Title volume remains 350 with PEEP at 10, maintaining adequate ventilation - Zosyn discontinued - All cultures and serologies to date negative - Pro calcitonin normalized She has been on same Medrol once a day. We will begin to wean this dose. 3. ARDS, concern for hcap; present on admission, ongoing - PaO2/pO2 requirements for ARDS -CXR continues to show bilateral lung opacities. -Leukocytosis, currently 11.7 from a peak of 22. -Negative cultures to date. -Procalcitonin normalized, will repeat -ABX discontinued. This is improved. She is again extubated. 4. Toxic encephalopathy. The patient does demonstrate being fairly confused intermittently and now that she is extubated. This point this is being handled with supportive care and continue to follow closely. She is certainly at risk for hypercarbia. 5. History of methamphetamine abuse, POA. 6. GI and DVT prophylaxis. GI Prophylaxis: H2 sonu VTE Prophylaxis: Sub-Q Enoxaparin VTE Mechanical Devices: Intermittant Pneumatic CD Resuscitation Status: DNR/DNI:Do Not Resuscitate/Intubate Time spent 30 minutes Veronica Lancaster MD Nov 17, 2016 16:02
--- NOTE | 2016-11-17 16:35 | NUR ---
Family Phone Numbers, POLST Form Her daughter, Carmela, stopped by this afternoon about 1400 to sign the POLST form as directed by Dr. Danielson. She then left some updated phone numbers to reach her at: and (her husbands number). She asked that if there are any changes in her mom's status that she be called. Care continues.
[2016-11-17] MEDS: Haloperidol 5 mg/mL Inj IVPUSH PRN (22:03)
[2016-11-18] VITALS (12 sets, daily range): BP systolic 111–133; BP diastolic 64–77; PULSE 80–102; RESP 18–20; O2SAT 90–97
[2016-11-18] MEDS: Insulin LISPRO 300 Unit/3 mL Inj SUBQ SCH ×4 (02:30→20:30)
[2016-11-18] MEDS: Albuterol-Ipratropium 3 mL Inhalation Solution NEB SCH (08:18)
[2016-11-18] MEDS: Nystatin 100,000 Unit/Gm 15 Gm Powder TOPICAL SCH ×2 (08:30→20:56)
[2016-11-18] MEDS: MethylprednisoLONE Sodium Succinate 62.5 mg/mL 2 mL Inj IVPUSH SCH (09:31)
[2016-11-18] MEDS: Polyethylene Glycol (PEG) 17 Gm Powder PO SCH (09:32)
[2016-11-18] MEDS: Methadone 10 mg/mL Oral Concentrate PO SCH ×2 (09:32→16:58)
[2016-11-18] MEDS: FLUoxetine 4 mg/mL 118 mL Solution PO SCH (09:32)
--- NOTE | 2016-11-18 10:28 | NUR ---
Palliative care note D/A: Pt dtr arrived on 11/17/16 in the afternoon and kindly signed POLST. This worker has taken copies for PC packet and will also discuss with dtr and mail copies to her. Case discussed with nabila Novoa. Pt was not able to take part in [facility] assessment on 11/06/16 due to confusion. Plan continues to be [facility] swing bed. Case discussed with Dr. Ceravntes post rounds who notes that pt is very alert and oriented. Recalled Dr. Cervantes and that she was PCP for pt mother. Have alerted Felicia SCHMITT to above. P: Palliative to follow. Yoselin JUAREZ, [facility] Addendum: 11/18/16 at 1401 by CHRISS SETHI PC note amendment Discussed with Carmela who agreed to this worker mailing two copies of the POLST. Have mailed them to the following address; Carmela Ivy [id number] [place] [address] TED
--- NOTE | 2016-11-18 11:30 | NUR ---
Social Work: Continued Discharge Planning D: Pt discussed in am rounds. Pt is not medically stable for discharge at this time. It is expected that pt will require skilled rehab at time of discharge. Pt's insurance and psychosocial factors present barriers to SNF placement however case management will provide referrals to local facilities for review. Pt may be a candidate for a [facility] swing bed. [facility] will provide referral. [employer] spoke with pt's HCS worker, Yolanda Turcios. She is coming today to complete bedside assessment with the pt. She has requested clinicals to be faxed to [phone]. [employer] met with pt at bedside to discuss discharge planning. Pt states her goal is to get stronger so that she can go home. [employer] reviewed discharge planning options and barriers. She is agreeable to a SNF if a location can be found- she does not have a preference. She is also agreeable to going to [facility] if accepted. [employer] reviewed PT notes; pt is severely deconditioned and cannot safely return home in her current condition. [employer] reviewed pt's substance use. pt confirms that she is still active with [facility] for Methadone and that she is not using any other substances. Pt denies any use and declines to participate in further CD assessment. Pt states she has CD resources and counseling through [facility]. A: Pt who previously resided at home, alone. P: Anticipate pt to either discharge to [facility] Swing bed versus SNF if a location can be found versus rehab at [facility] if the previous two plans are not viable. Case Management to continue to follow. OSKAR oFy
[2016-11-18] MEDS ORDERED: Albuterol-Ipratropium 3 mL Inhalation Solution NEB PRN (12:30)
[2016-11-18] MEDS: predniSONE 20 mg Tablet PO SCH (14:05)
--- NOTE | 2016-11-18 14:35 | PCM.PNMED ---
Subjective Date of Service Nov 18, 2016 Subjective Patient is more alert today. And complains of weakness of her shoulders but hands are intact. She also may have weakness of the hip flexors also. She also admits and is somewhat tearful as being depressed due to her medical condition. At this point she has no plan for suicide. But at times does have some passing ideas of not caring what happens to work. She has been on Prozac for her depression now and in the past. Exam Vital Signs Vital Sign - Last Date Time Temp Pulse Resp B/P Pulse Ox O2 Delivery O2 Flow Rate FiO2 11/18/16 11:55 37.0 90 20 131/77 90 Nasal Cannula 1.00 11/17/16 03:40 94 Intake and Output 11/17/16 11/17/16 11/18/16 Cumulative From/Thru 15:00 23:00 07:00 11/07/16 15:10 - 11/18/16 06:25 Intake Total 0 ml 1296 ml 70236 ml Output Total 800 ml 400 ml 01302 ml Balance -800 ml 896 ml 1110 ml Intake Oral 0 ml 1296 ml 1316 ml IV Total 66100 ml Tube Feeding 5002 ml Tube Irrigant 980 ml Output Urine Total 800 ml 400 ml 53008 ml Gastric Drainage Total 1700 ml # Bowel Movements 1 8 Exam Constitutional: Middle-aged female who is somewhat tearful Head: Normocephalic atraumatic Chest: Some decreased breath sounds at her bases Cor: Regular rate and rhythm S1-S2 Abdomen: Soft nontender bowel sounds present Extremities: No pedal edema Neuro: she is alert and oriented 3, she does have symmetric bilateral proximal weakness shoulders and hips Lab and Diagnostics Result Diagram: 11/15/16 0520 11/15/16 0520 X-Rays, CTs and MRIs Cervical Spine CT 1. No acute cervical spine injury. 2. Superior endplate depression at T4 which is new when compared with the prior cross-sectional study dated 03/21/16. The acuity of this finding is unknown. However, if the patient endorses focal pain in this region, acute compression deformity could be suspected. If further characterization is warranted, noncontrast MRI of the cervicothoracic region may be helpful. 3. "Crazy paving" pattern within the pulmonary apices bilaterally. There is a broad differential for this finding which includes pulmonary edema, ARDS, pulmonary alveolar proteinosis, acute interstitial pneumonia, and bacterial pneumonia. Dictated by: Penelope Granados M.D. on 11/07/2016 at 17:[address] 1. No acute intracranial findings. 2. 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 Dictated by: Penelope Granados M.D. on 11/07/2016 at 16:55 Chest X-ray IMPRESSION: New central venous catheter. Increased bilateral pulmonary radiopacities. Dictated by: Penelope Granados M.D. on 11/07/2016 at 17:34 Chest X-ray IMPRESSION: Status post intubation with the endotracheal tube approximately 2 cm above the tu. Consider retracting the endotracheal tube approximately 2 cm. Dictated by: Penelope Granados M.D. on 11/07/2016 at 20:22 X-RAY CHEST ONE VIEW, PORTABLE IMPRESSION: No significant change from prior examination suggesting pulmonary edema and/or bibasilar pneumonia. X-RAY CHEST ONE VIEW, PORTABLE IMPRESSION: Bilateral lung opacities suggesting pulmonary edema. ARDS cannot be excluded. Assessment & Plan 56 y/o female past medical history of polysubstance abuse, is claiming of interstitial pneumonitis admitted for acute hypoxemic respiratory failure status post methamphetamine inhalation. Pt currently propofol 50mcg and fentanyl 250mcg. She remains off of paralytics. 1. Acute (on chronic) hypoxemic respiratory failure - EMS found O2 sats in the 30's and ED found them to be in the 50's. Underlying interstitial pneumonia and COPD as well as desquamative interstitial pneumonia. Patient required intubation and remains on ventilation secondary to prolonged hypoxemia. She has tolerated some decrease in her FiO2. Continues to have some dynamic compression of her airways which requires in increased PEEP and high dose steroids. - Ventilator adjustments continue, PEEP remains at 10 - Solu-Medrol 125 mg IV daily - DuoNeb nebs every 4 - CXR - Stable chest with diffuse pulmonary edema or bilateral pneumonia Patient was extubated yesterday and is doing relatively well. No blood gases since that time. There is no pain for reintubation as the patient is against this. Is was ascertained and documented by palliative care medicine yesterday. Her mother is aware of these wishes. At this point she appears to be doing relatively well on low flow oxygen nasal cannula. We will need to work on intermediate facility placement. 2. Diffuse interstitial pneumonitis, diagnosed by surgical biopsy. - Extensive history of smoking inhalation including cigarettes as well as methamphetamine. - Title volume remains 350 with PEEP at 10, maintaining adequate ventilation - Zosyn discontinued - All cultures and serologies to date negative - Pro calcitonin normalized She has been on same Medrol once a day. We will begin to wean this dose. Had dropped her down to prednisone 40 mg by mouth daily and DC'd IV Solu-Medrol daily. 3. ARDS, concern for hcap; present on admission, ongoing - PaO2/pO2 requirements for ARDS -CXR continues to show bilateral lung opacities. -Leukocytosis, currently 11.7 from a peak of 22. -Negative cultures to date. -Procalcitonin normalized, will repeat -ABX discontinued. This is improved. She is again extubated. 4. Toxic encephalopathy. The patient does demonstrate being fairly confused intermittently and now that she is extubated. This point this is being handled with supportive care and continue to follow closely. She is certainly at risk for hypercarbia. She does appear to be more alert today. 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 We will gradually titrate down her dose of steroids and continue with physical therapy. #Depression, chronic, but an acute flare, not present on admission We will add mirtazapine to her current regimen. 5. History of methamphetamine abuse, POA. 6. GI and DVT prophylaxis. GI Prophylaxis: H2 sonu VTE Prophylaxis: Sub-Q Enoxaparin VTE Mechanical Devices: Intermittant Pneumatic CD Resuscitation Status: DNR/DNI:Do Not Resuscitate/Intubate Time spent 30 minutes Veronica Lancaster MD Nov 18, 2016 14:35
--- NOTE | 2016-11-18 16:15 | PCM.PALLBR ---
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 Extubated successfully on 11/15 Palliative medicine consulted to assist with determination of goals of care and reconciliation of patient and family wishes. See below for additional details of my lengthy conversations with her mother and daughter on 11/17 regarding wishes for care. Summary of palliative recommendations: 11/18/16- Confirmed POLST/DNR/DNI and no feeding tube with pt. She is willing to go to a SNF for a short period to strengthen. Concern for prox muscle weakness which she claims is new with this admission for being possible steroid myopathy-she continues pn high dose. Pain management seems well handled with the methadone dose but her addiction continues and their is little insight. Doubt this will be managed without inpatient time. -Symptom management (Pain/other)- continue use of prn medications for discomfort per medical team. Reviewed her chronic methadone use with Dr. Ojeda and he has restarted methadone, initially 10 mg TID with titration upwards as needed. Palliative will continue to follow and support as well. -DPOA/Advanced Directives/POLST- DO NOT RESUSCITATE/DO NOT INTUBATE/limited interventions. Today, following confirmation of this with the patient's daughter/GENARO Casey and her mother Li, I filled out a new POLST which Paola will sign when she visits the hospital next time. This document is in the front of the patient's paper chart outside her room. Per patient (and with her mother's agreement) not a candidate for reintubation -Family/emotional support- palliative medicine will continue to follow and provide support as able Additional Medical Diagnoses with primary management by Hospitalist team include : 1. Acute (on chronic) hypoxemic respiratory failure - 2. Diffuse desquamative interstitial pneumonitis, diagnosed by surgical biopsy. 3. ARDS, concern for hcap; present on admission, ongoing Problems: End of Life Preferences DO NOT RESUSCITATE/DO NOT INTUBATE/limited interventions Goals of Care Willing to go to SNF Disposition To be determined- it is almost a certainty that she will require SNF placement Resuscitation Status Resuscitation Status: DNR/DNI:Do Not Resuscitate/Intubate POLST Updates/Changes Previous POLST?: No Artificially Admin Nutrition: No Artifical Nutrition by Tube POLST Discussed with: Patient, Health Care Agent (DPOAHC) POLST Review Outcome: New Form Completed (requires signature by her POA/ daughter Carmela) Total time 40 minutes; >50% face to face with patient and/or family, providing counselling regarding plans and recommendations, and in care coordination with his/her medical teams. Reviewing record, discussion with patient, Dr. Lancaster and coordination of care I also spent an additional [ ] minutes counseling for advanced care planning with the patient/the patients family/the surrogate decision maker. copies to: Martha Lanza Palliative Brief Note Date of Service Nov 18, 2016 . Patient frustrated. Wants to go home and thinks she can manage with her caregiver. Then complains that she cannot use her arms and she has no idea about her legs. She is concerned about her methadone and her contract with the clinic. She then varies in her reported dose from 85 to 135 mg for maintenance-she is now on 10 mg tid She states suboxone did nothing for her and "made her go back to heroin". O: oriented to person and place. She knows who I am and that I was her mother's doc. ox drops to 84% but with requests for deep inspiration she goes to 88-89% she has profound proximal muscle weakness in shoulder girdle but preserved grasp. she has mod weakness at biceps and at L wrist. kicks well below knee, pelvic girdle not tested Norma Cervantes MD Nov 18, 2016 16:15
[2016-11-18] MEDS: Sodium Chloride LOK Flush 10 mL Syringe IVFLUSH PRN (20:55)
[2016-11-19] VITALS (7 sets, daily range): BP systolic 117–143; BP diastolic 67–83; PULSE 83–105; RESP 16–20; O2SAT 90–98
[2016-11-19] MEDS: Methadone 10 mg/mL Oral Concentrate PO SCH ×3 (00:16→16:12)
[2016-11-19] MEDS: Insulin LISPRO 300 Unit/3 mL Inj SUBQ SCH ×4 (02:30→20:30)
--- NOTE | 2016-11-19 04:29 | NUR ---
Mentation / Respiratory Pt AOx2, unable to accurately state year and stated "I don't care." At beginning of shift, pt teary, stated "I just don't see the point" and "I wish you guys would give me medication and just end it all" and "I don't understand why I'm this way". Pt oriented to situation, encouraged to look retroactively at progress in plan of care and set realistic goals for self regarding process of healing. Pt demeanor changed throughout rest of shift to statements such as "I'm so excited to go home" and "I want to get up and use that walker tomorrow". Pt agreeable to plan of care during hospital stay. Upper and lower extremity exercises encouraged; pt utilizing ankle waves and foot pumps frequently, needs reminders for upper extremity stretches/exercises. Pt able to participate in turns; needs occasional cueing to move extremities by herself. More significant weakness to BUE than BLE. Pt on 1L NC at HS, SPO2 89-90% while asleep; increased to 2L NC with SPO2 95-97%. Attempted to wean pt back down to 0.5-1L NC - SPO2 subsequently decreased to 85-86%. Pt placed on 1.5L NC, SPO2 93-94%. VSS. Resting at present. Q1-2H turns.
[2016-11-19] MEDS: Polyethylene Glycol (PEG) 17 Gm Powder PO SCH ×2 (08:30→08:34)
[2016-11-19] MEDS: Nystatin 100,000 Unit/Gm 15 Gm Powder TOPICAL SCH ×2 (08:34→20:51)
[2016-11-19] MEDS: predniSONE 20 mg Tablet PO SCH (08:35)
--- NOTE | 2016-11-19 10:44 | NUR ---
Gave access and faxed facesheet to [facility], [facility] and [facility]. Per [facility] request, wanting to see if there is any potential for rehab outside the hospital. Addendum: 11/19/16 at 1156 by ANGELA FISHER Rossy from [facility] called and they do hold a [employer] Contract, for this patient she would need her ED to approve and they would need to come and do an onsite. She would also need to work on a contract for [facility]. Updated GRAPE PR[facility]ER
--- NOTE | 2016-11-19 13:00 | NUR ---
Social Work: Continued Discharge Planning D: Pt discussed in am rounds. From a medical standpoint pt is stable for discharge to a lower level of care. GEOLOGICAL MANAGER spoke with [facility] about [facility] referral. [facility] has not made a decision about the pt's admission status, despite repeated phone calls. [facility] however would like to complete a bedside assessment with the pt. t/c from [facility] in [place]. They cannot accept the pt. t/c from [facility]. They cannot accept the pt. PPW on chart PASSR in folder for MD signature. GEOLOGICAL MANAGER spoke with Johana, information systems administrator with [facility]. She believes that the pt would be appropriate for admission however the admissions team at [facility] have the final decision. She will be providing information from her assessment to them. As pt is [employer] [employer] insurance, the accepting [facility] facility would need to complete an authorization from [facility] which cannot occur over the weekend. A: Pt who will likely require skilled rehab at time of discharge for continued gait training and functional mobility P: Anticipate pt to discharge to skilled rehab pending accepting facility and authorization from [facility]; [facility] Adia Rainey is reviewing. Referrals have also been made to [facility] and [facility] who have not yet responded to pt's referrals. OSKAR Foy
--- NOTE | 2016-11-19 14:59 | PCM.PNMED ---
Subjective Date of Service Nov 19, 2016 Subjective Patient is resting in bed this morning and notes she had a good night sleep. Exam Vital Signs Vital Sign - Last Date Time Temp Pulse Resp B/P Pulse Ox O2 Delivery O2 Flow Rate FiO2 11/19/16 11:48 37.0 85 18 138/83 94 Room Air 11/19/16 08:44 2.00 11/17/16 03:40 94 Intake and Output 11/18/16 11/18/16 11/19/16 Cumulative From/Thru 15:00 23:00 07:00 11/07/16 15:10 - 11/19/16 04:32 Intake Total 200 ml 827 ml 04351 ml Output Total 900 ml 800 ml 94387 ml Balance -700 ml 27 ml 437 ml Intake Oral 200 ml 827 ml 2343 ml IV Total 23054 ml Tube Feeding 5002 ml Tube Irrigant 980 ml Output Urine Total 900 ml 800 ml 91872 ml Gastric Drainage Total 1700 ml # Bowel Movements 0 8 Exam Constitutional: Middle-aged female who is comfortable Head: Normocephalic atraumatic Chest: Some decreased breath sounds at her bases Cor: Regular rate and rhythm S1-S2 Abdomen: Soft nontender bowel sounds present Extremities: No pedal edema Neuro: she is alert and oriented 3, she does have symmetric bilateral proximal weakness shoulders and hips Lab and Diagnostics Result Diagram: 11/15/16 0520 11/15/16 0520 X-Rays, CTs and MRIs Cervical Spine CT 1. No acute cervical spine injury. 2. Superior endplate depression at T4 which is new when compared with the prior cross-sectional study dated 03/21/16. The acuity of this finding is unknown. However, if the patient endorses focal pain in this region, acute compression deformity could be suspected. If further characterization is warranted, noncontrast MRI of the cervicothoracic region may be helpful. 3. "Crazy paving" pattern within the pulmonary apices bilaterally. There is a broad differential for this finding which includes pulmonary edema, ARDS, pulmonary alveolar proteinosis, acute interstitial pneumonia, and bacterial pneumonia. Dictated by: Penelope Granados M.D. on 11/07/2016 at 17:[address] 1. No acute intracranial findings. 2. 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 Dictated by: Penelope Granados M.D. on 11/07/2016 at 16:55 Chest X-ray IMPRESSION: New central venous catheter. Increased bilateral pulmonary radiopacities. Dictated by: Penelope Granados M.D. on 11/07/2016 at 17:34 Chest X-ray IMPRESSION: Status post intubation with the endotracheal tube approximately 2 cm above the tu. Consider retracting the endotracheal tube approximately 2 cm. Dictated by: Penelope Granados M.D. on 11/07/2016 at 20:22 X-RAY CHEST ONE VIEW, PORTABLE IMPRESSION: No significant change from prior examination suggesting pulmonary edema and/or bibasilar pneumonia. X-RAY CHEST ONE VIEW, PORTABLE IMPRESSION: Bilateral lung opacities suggesting pulmonary edema. ARDS cannot be excluded. Assessment & Plan 56 y/o female past medical history of polysubstance abuse, is claiming of interstitial pneumonitis admitted for acute hypoxemic respiratory failure status post methamphetamine inhalation. 1. Acute (on chronic) hypoxemic respiratory failure - Patient was extubated on November 15. She is doing fine with 1 L nasal cannula. Currently awaiting placement, possibly in [facility]. 2. Diffuse interstitial pneumonitis, diagnosed by surgical biopsy. - Extensive history of smoking inhalation including cigarettes as well as methamphetamine. Started on prednisone 40 mg by mouth daily and dropped her from IV Solu-Medrol 3. ARDS, concern for hcap; present on admission, ongoing -ABX discontinued. This is improved. 4. Toxic encephalopathy. This has been markedly improved over the past several days. She is very coherent and conversant versus and has appropriate cognitive functions. 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 We will gradually titrate down her dose of steroids and continue with physical therapy. #Depression, chronic, but an acute flare, not present on admission We will add mirtazapine to her current regimen. 5. History of methamphetamine abuse, POA. 6. GI and DVT prophylaxis. GI Prophylaxis: H2 sonu VTE Prophylaxis: Sub-Q Enoxaparin VTE Mechanical Devices: Intermittant Pneumatic CD Resuscitation Status: DNR/DNI:Do Not Resuscitate/Intubate Time spent 30 minutes Veronica Lancaster MD Nov 19, 2016 14:59 therapy. #Depression, chronic, but an acute flare, not present on admission We will add mirtazapine to her current regimen. 5. History of methamphetamine abuse, POA. 6. GI and DVT prophylaxis. GI Prophylaxis: H2 sonu VTE Prophylaxis: Sub-Q Enoxaparin VTE Mechanical Devices: Intermittant Pneumatic CD Resuscitation Status: DNR/DNI:Do Not Resuscitate/Intubate Time spent 30 minutes Veronica Lancaster MD Nov 19, 2016 14:59
--- NOTE | 2016-11-19 15:19 | NUR ---
Mentation/appetite/activity pt alert and oriented to self and place. Pt states overwhelmed with current medication situation. Encouragement offered. Pt reporting high appetite, consuming 100% of meals and requesting snacks of ice cream between. Blood glucose stable, wnl. Pt working with PT this morning. Pt attempting to assist with feeding and turning. care continues. Addendum: 11/19/16 at 1824 by HANS VENTURA RN pt also given ativan x1 for anxiety, and restlessness. pt stating "I am going crazy in here." moderate effectiveness.
--- NOTE | 2016-11-19 15:29 | PROG NOTE ---
[address] [address] PROGRESS NOTE PATIENT: JONO RODNEY : 1960 MR#: [id number] ADMIT: 11/07/2016 JOB ID: [id number] DATE: 11/19/2016 PULMONARY PROGRESS NOTE: The patient is a 56-year-old woman with history of polysubstance abuse admitted with acute on chronic hypoxic respiratory failure secondary to exacerbation of desquamative interstitial pneumonitis. INTERVAL HISTORY: She has been extubated a few days ago, on the floor. She is on just 1-2 L of oxygen via nasal cannula, but she is severely weak and can barely hold a candy bar today, when I was in the room today. She says her breathing is better. She does have a wet cough but minimal sputum. REVIEW OF SYSTEMS: As above. PHYSICAL EXAMINATION: Vital signs reviewed. T-max of 37.1, pulse 86, respirations 18, BP 123/67, sats 94% on 2 L. General: Obese, cushingoid appearance. Chest: Fine bilateral crackles. LABORATORIES: Reviewed. Chest x-ray shows bilateral pulmonary infiltrates on November 14. She has not had a chest x-ray since. ASSESSMENT AND RECOMMENDATIONS: 1. Acute on chronic respiratory failure. 2. 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 3. Distant history of intravenous heroin abuse from which she has been clean for over a year. 4. History of intermittent cigarette smoking and methamphetamine use with recent relapse after being clean for a long time. 5. Steroid-induced and critical illness myopathy. This 56-year-old woman has had multiple hospitalizations for pretty much the same issue--exacerbations of her underlying DIP. She has had excellent response to steroids when initially treated, but with every relapse, she has been getting worse. She has severe hip arthritis which is causing pain and cannot have her surgery until her steroid dose is down to 5 mg, but every time we get close to this, she relapses on either cigarettes or meth and ends up back in the hospital. This is now the 2nd time that has happened. I agree with decreasing her steroids to 40 mg p.o. daily. I would recommend continuing 40 mg p.o. daily for two weeks and then down to 30 mg for two weeks and then 20 mg until I see her back in followup. She should have a followup appointment already made with me in December. She has been counseled extensively regarding avoiding methamphetamine and cigarettes and the affect this is having on her interstitial lung disease. At this time, she claims that she cannot remember using these meds before coming in. With regard to her myopathy and neuropathy, I do not see what option we have at this point. Stopping the steroids will almost certainly result in a relapse, but her weakness is quite profound. I agree that she needs rehab and aggressive physical and occupational therapy in the meantime. I noted the discussions with Palliative Care and the fact that she is now DNR/DNI. I am available for questions; if any, please contact me.
--- NOTE | 2016-11-19 18:12 | PCM.PALLBR ---
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 Extubated successfully on 11/15 Palliative medicine consulted to assist with determination of goals of care and reconciliation of patient and family wishes. See below for additional details of my lengthy conversations with her mother and daughter on 11/17 regarding wishes for care. Summary of palliative recommendations: 11/19/16 Confirms DNR/DNI status. Chemical dependency-very poor insight. 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 Unclear how much she will be able to recover. This may potentially require ongoing assisted care. Pain management-patient has no complaints now on methadone 10 mg 3 times a day Depression-chronic and mixed with her SUDS. On fluoxetine 40 mg. Would benefit from ongoing psychiatric intervention Reviewed setting goal of out of bed in chair at least 2 times per day. Disposition plan is for SNF-case management addressing this. 11/18/16- Confirmed POLST/DNR/DNI and no feeding tube with pt. She is willing to go to a SNF for a short period to strengthen. Concern for prox muscle weakness which she claims is new with this admission for being possible steroid myopathy-she continues pn high dose. Pain management seems well handled with the methadone dose but her addiction continues and their is little insight. Doubt this will be managed without inpatient time. -Symptom management (Pain/other)- continue use of prn medications for discomfort per medical team. Reviewed her chronic methadone use with Dr. Ojeda and he has restarted methadone, initially 10 mg TID with titration upwards as needed. Palliative will continue to follow and support as well. -DPOA/Advanced Directives/POLST- DO NOT RESUSCITATE/DO NOT INTUBATE/limited interventions. Today, following confirmation of this with the patient's daughter/GENARO Casey and her mother Li, I filled out a new POLST which Paola will sign when she visits the hospital next time. This document is in the front of the patient's paper chart outside her room. Per patient (and with her mother's agreement) not a candidate for reintubation -Family/emotional support- palliative medicine will continue to follow and provide support as able Additional Medical Diagnoses with primary management by Hospitalist team include : 1. Acute (on chronic) hypoxemic respiratory failure - 2. Diffuse desquamative interstitial pneumonitis, diagnosed by surgical biopsy. 3. ARDS, concern for hcap; present on admission, ongoing Problems: End of Life Preferences DO NOT RESUSCITATE/DO NOT INTUBATE/limited interventions Goals of Care Willing to go to SNF Disposition To be determined- it is almost a certainty that she will require SNF placement Resuscitation Status Resuscitation Status: DNR/DNI:Do Not Resuscitate/Intubate POLST Updates/Changes Previous POLST?: No Artificially Admin Nutrition: No Artifical Nutrition by Tube POLST Discussed with: Patient, Health Care Agent ([facility]PO[facility]) POLST Review Outcome: New Form Completed (requires signature by her POA/ daughter Carmela) Total time 35 minutes; >50% face to face with patient and/or family, providing counselling regarding plans and recommendations, and in care coordination with his/her medical teams. I also spent an additional [ ] minutes counseling for advanced care planning with the patient/the patients family/the surrogate decision maker. copies to: [facility] Palliative Brief Note Date of Service Nov 19, 2016 . Patient states she has been able to be up with walker but physical therapy defines difficulty even sitting at the side of the bed. Patient acknowledges she is not able to feed herself but then she also states she wants to go home to take care of her plants. She states last inpatient CD rehabilitation was 18 months ago. She states this is one of her longer bouts of "being clean". Of note was that she had a positive methamphetamine U tox on admit. She asks for medications but then cannot be specific acknowledges that "I just need something" O: Poor insight oxygenation doing well with nasal cannula Lungs some wheezing, snores when sleeping but no witnessed apnea Has a remarkably thick neck with her central obesity Remains profoundly weak particularly proximal muscle consistent with myopathy Abdomen obese and soft Norma Cervantes MD Nov 19, 2016 18:12
[2016-11-20] VITALS (7 sets, daily range): BP systolic 116–157; BP diastolic 60–88; PULSE 77–90; RESP 16–22; O2SAT 91–95
[2016-11-20] MEDS: Methadone 10 mg/mL Oral Concentrate PO SCH ×3 (00:24→17:37)
[2016-11-20] MEDS: Insulin LISPRO 300 Unit/3 mL Inj SUBQ SCH ×4 (02:30→20:30)
--- NOTE | 2016-11-20 04:59 | NUR ---
Mentation / Glucose Pt AOx2, still unable to accurately state year. Pt able to rest intermittently this shift, repeatedly states "I can't wait to just go home for a day" and "Do you think they'll let me just go home for one day tomorrow?" Pt educated to plan of care and therapy outlook; unable to successfully orient. Pt moving and turning self more in bed on own, though participates less with staff unless directly prompted. Pt attempting to get out of bed this AM; reoriented to current strength and capacity, encouraged to rest during night to be ready for physical therapy in AM. VSS. Tele SR 80s. Pt BG at approx. 0330 was 72; 360ml of apple juice administered; recheck after approx. 20 minutes was 132.
[2016-11-20] MEDS: Polyethylene Glycol (PEG) 17 Gm Powder PO SCH (08:49)
[2016-11-20] MEDS: Nystatin 100,000 Unit/Gm 15 Gm Powder TOPICAL SCH ×2 (08:50→20:34)
[2016-11-20] MEDS: predniSONE 20 mg Tablet PO SCH (08:50)
--- NOTE | 2016-11-20 11:19 | NUR ---
Anxious The pt is becoming increasingly anxious and is stating she "wants to leave". After explanation as to why staying here is medically necessary, the pt responded with "I'll just leave and out there then." 2mg of Ativan has been given, and social work and MD is aware. Will continue to monitor and reevaluate. Addendum: 11/20/16 at 1752 by DASHAWN ADDISON RN the pt was given halidol IV secondary to increasing anxiety, agitation and determination to leave after suicidal ideations. The medication had good effect, and the pt was able to sleep for a few hours, and woke up more agreeable to the plan of care established with the MD's and clinical social work therapist.
--- NOTE | 2016-11-20 12:24 | NUR ---
NUTRITION FOLLOW-UP: Assess: 56 YO F admitted to CCU with COPD exacerbation, severe hypoxemia, sepsis, and pneumonia, requiring intubation/mechanical ventilation. Pt. 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 She was extubated successfully 11/15. Diet advanced to dysphagia mechanical, thin liquids. PO intake 100% all trays consistently. PMHx: Acute on chronic respiratory failure, desquamated interstitial pneumonia, tobacco, psychiatric disorder, HLD, opiate abuse, COPD, depression, asthma, anxiety, influenza A, PTSD. LABS:No current labs. MEDICATIONS: Prednisone, methadone, insulin. DIET: Dysphagia mechanical, thin liquids. PO intake 100% trays. ENTERAL FEEDING DISCONTINUED: Vital 1.5 @ goal rate 47 ml/hr + 2 packets Prosource, providing 1551 kcal/d (2317 kcal/d w/ propofol), 92 g/d protein, and 970 ml/d H2O, meeting 100% of calorie needs, 100% protein needs. GI: BM x 1 today. SKIN: No pressure injuries noted. Vipul 14 today. ANTHROPOMETRICS: Current Wt: 87.4 kg BMI: 33.0 kg/m2, Admit Wt: 94.7 kg, IBW: 54.5 kg. ESTIMATED NEEDS: BMI Calories: 8423-7632 kcal/day (20-22 kcal/kg BW) Protein: 82-98 g/day (1.5-1.8 g/kg/d IBW) NUTRITION DIAGNOSIS: 1) Inadequate oral intake related to decreased ability to consume sufficient energy as evidenced by NPO/Vent status - RESOLVED. 2) Chewing / swallowing difficulties related to respiratory failure, as evidenced by slow diet progression, per ST order. INTERVENTION: 1) No intervention at this time. MONITOR/EVALUATE: Diet advance / tolerance, PO intake, GI, labs, nutrition status, POC. Follow per low nutrition risk guidelines.
[2016-11-20] MEDS: Haloperidol 5 mg/mL Inj IVPUSH PRN (14:04)
--- NOTE | 2016-11-20 17:46 | PCM.PNMED ---
Subjective Date of Service Nov 20, 2016 Subjective 56-year-old woman with interstitial lung disease and steroid myopathy presented with acute and chronic respiratory failure with hypoxia. Status post intubation. She is awake alert. Seems to have poor insight into her medical conditions. She is voicing intention to go home which she is physically unable to do. No other specific complaints. Exam Vital Signs Vital Sign - Last Date Time Temp Pulse Resp B/P Pulse Ox O2 Delivery O2 Flow Rate FiO2 11/20/16 17:02 35.6 90 18 127/60 91 Nasal Cannula 2.00 11/17/16 03:40 94 Intake and Output 11/19/16 11/19/16 11/20/16 Cumulative From/Thru 15:00 23:00 07:00 11/07/16 15:10 - 11/20/16 05:24 Intake Total 1080 ml 360 ml 85394 ml Output Total 450 ml 600 ml 52550 ml Balance 630 ml -240 ml 827 ml Intake Oral 1080 ml 360 ml 3783 ml IV Total 88064 ml Tube Feeding 5002 ml Tube Irrigant 980 ml Output Urine Total 450 ml 600 ml 98140 ml Gastric Drainage Total 1700 ml # Voids 2 2 # Bowel Movements 1 9 Exam General: Mildly centrally obese woman in no acute distress HEENT: sclerae anicteric, oral mucosa moist Neck: Focal to assess JVD, supple Chest: Diffuse coarse breath sounds but generally clear to auscultation Cardiac: S1S2, no murmur Abdomen: BS normal, non-tender Extremities: No edema Neuro: A&O, cranial nerves symmetric, motor strength 4/5 truncal weakness, coordination and really normal Lab and Diagnostics Result Diagram: 11/15/16 0520 11/15/16 0520 X-Rays, CTs and MRIs Cervical Spine CT 1. No acute cervical spine injury. 2. Superior endplate depression at T4 which is new when compared with the prior cross-sectional study dated 03/21/16. The acuity of this finding is unknown. However, if the patient endorses focal pain in this region, acute compression deformity could be suspected. If further characterization is warranted, noncontrast MRI of the cervicothoracic region may be helpful. 3. "Crazy paving" pattern within the pulmonary apices bilaterally. There is a broad differential for this finding which includes pulmonary edema, ARDS, pulmonary alveolar proteinosis, acute interstitial pneumonia, and bacterial pneumonia. Dictated by: Penelope Granados M.D. on 11/07/2016 at 17:[address] 1. No acute intracranial findings. 2. 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 Dictated by: Penelope Granados M.D. on 11/07/2016 at 16:55 Chest X-ray IMPRESSION: New central venous catheter. Increased bilateral pulmonary radiopacities. Dictated by: Penelope Granados M.D. on 11/07/2016 at 17:34 Chest X-ray IMPRESSION: Status post intubation with the endotracheal tube approximately 2 cm above the tu. Consider retracting the endotracheal tube approximately 2 cm. Dictated by: Penelope Granados M.D. on 11/07/2016 at 20:22 X-RAY CHEST ONE VIEW, PORTABLE IMPRESSION: No significant change from prior examination suggesting pulmonary edema and/or bibasilar pneumonia. X-RAY CHEST ONE VIEW, PORTABLE IMPRESSION: Bilateral lung opacities suggesting pulmonary edema. ARDS cannot be excluded. Assessment & Plan 56 y/o female past medical history of polysubstance abuse, is claiming of interstitial pneumonitis admitted for acute hypoxemic respiratory failure status post methamphetamine inhalation. #. Acute (on chronic) hypoxemic respiratory failure - Patient was extubated on November 15. She is doing fine with 1 L nasal cannula. - Currently awaiting placement, possibly in [facility]. #. Diffuse interstitial pneumonitis, diagnosed by surgical biopsy. Extensive history of smoking inhalation including cigarettes as well as methamphetamine. Shortly treated with pulse Solu-Medrol - Continue prednisone 40 mg by mouth daily #. Status post intubation for ARDS, concern for hcap; present on admission, ongoing. No evidence for lower respiratory tract infection at this time. - ABX discontinued. #. Toxic encephalopathy. This has been markedly improved over the past several days. She is very coherent and conversant versus and has generally appropriate cognitive functions. # Proximal muscle weakness, subacute, not present on admission. 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 - We will gradually titrate down her dose of steroids and continue with physical therapy. #Depression, chronic, but an acute flare, not present on admission - Continue mirtazapine. #. History of methamphetamine abuse, POA. GI Prophylaxis: H2 sonu VTE Prophylaxis: Sub-Q Enoxaparin VTE Mechanical Devices: Intermittant Pneumatic CD Resuscitation Status: DNR/DNI:Do Not Resuscitate/Intubate Time spent 25 minutes Ananda Worthington MD Nov 20, 2016 17:46
[2016-11-21] VITALS (8 sets, daily range): BP systolic 112–145; BP diastolic 57–80; PULSE 61–98; RESP 17–20; O2SAT 92–95
[2016-11-21] MEDS: Methadone 10 mg/mL Oral Concentrate PO SCH ×3 (00:19→16:31)
[2016-11-21] MEDS: Insulin LISPRO 300 Unit/3 mL Inj SUBQ SCH ×4 (02:30→20:30)
--- NOTE | 2016-11-21 05:25 | NUR ---
Mobility / Mentation Pt upper and lower extremity strength improved this shift; fine motor skills significantly decreased and yet unable to feed self, but pt demonstrated ability to grab blunt objects with hands. Pt more participatory in bed mobility. Verbalized need to use the bathroom; pt able to transfer to [facility] with 2PA, walker, and gait belt. No acute anxiety, suicidal ideation, or expressed interest in going home this shift; pt asked at one time "what the plan was after this", and educated to plan for physical rehabilitation post-discharge. Pt verbalized understanding for plan of care, compliant with all interventions. VSS. Tele SR 80s. Pt resting in between interventions.
--- NOTE | 2016-11-21 06:09 | NUR ---
Hypoglycemia Pt BG at approx. 0400 was 78; 360ml of apple juice administered. BG recheck was 84. 10min recheck to confirm BG, BG increased to 92. 30min recheck without intervention increased to 123.
[2016-11-21] MEDS: Nystatin 100,000 Unit/Gm 15 Gm Powder TOPICAL SCH ×2 (08:27→20:56)
[2016-11-21] MEDS: Polyethylene Glycol (PEG) 17 Gm Powder PO SCH (08:28)
[2016-11-21] MEDS: predniSONE 20 mg Tablet PO SCH (08:28)
--- NOTE | 2016-11-21 13:43 | NUR ---
Transfer Report given to Parisa on [facility]. Pt leaving the unit A&O x3 with vitals WNL for the pt's baseline. The pt is currently in 1.5L O2.
--- NOTE | 2016-11-21 14:09 | PCM.PNMED ---
Subjective Date of Service Nov 21, 2016 Subjective 56-year-old woman with interstitial lung disease and steroid myopathy presented with acute and chronic respiratory failure with hypoxia. Status post intubation. She is awake alert. Seems to have poor insight into her medical conditions. Affect is calm and pleasant today. No other specific complaints. Exam Vital Signs Vital Sign - Last Date Time Temp Pulse Resp B/P Pulse Ox O2 Delivery O2 Flow Rate FiO2 11/21/16 08:52 Supplement Oxygen 11/21/16 08:42 80 20 92 1.00 11/21/16 08:25 36.7 112/67 11/17/16 03:40 94 Intake and Output 11/20/16 11/20/16 11/21/16 Cumulative From/Thru 15:00 23:00 07:00 11/07/16 15:10 - 11/21/16 06:28 Intake Total 1000 ml 360 ml 55934 ml Output Total 750 ml 700 ml 27310 ml Balance 250 ml -340 ml 737 ml Intake Oral 1000 ml 360 ml 5143 ml IV Total 73614 ml Tube Feeding 5002 ml Tube Irrigant 980 ml Output Urine Total 750 ml 700 ml 97574 ml Gastric Drainage Total 1700 ml # Voids 2 # Bowel Movements 2 11 Exam General: Mildly centrally obese woman, no acute distress HEENT: sclerae anicteric, oral mucosa moist Neck: Focal to assess JVD, supple Chest: Generally clear to auscultation Cardiac: S1S2, no murmur Abdomen: BS normal, non-tender Extremities: No edema Neuro: A&O, cranial nerves symmetric, motor strength 4/5 truncal weakness IVs and Medications Medications Reviewed: Medications were reviewed in detail Lab and Diagnostics Result Diagram: 11/15/1651911/15/16 0520 X-Rays, CTs and MRIs Cervical Spine CT 1. No acute cervical spine injury. 2. Superior endplate depression at T4 which is new when compared with the prior cross-sectional study dated 03/21/16. The acuity of this finding is unknown. However, if the patient endorses focal pain in this region, acute compression deformity could be suspected. If further characterization is warranted, noncontrast MRI of the cervicothoracic region may be helpful. 3. "Crazy paving" pattern within the pulmonary apices bilaterally. There is a broad differential for this finding which includes pulmonary edema, ARDS, pulmonary alveolar proteinosis, acute interstitial pneumonia, and bacterial pneumonia. Dictated by: Penelope Granados M.D. on 11/07/2016 at 17:[address] 1. No acute intracranial findings. 2. 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 Dictated by: Peenlope Granados M.D. on 11/07/2016 at 16:55 Chest X-ray IMPRESSION: New central venous catheter. Increased bilateral pulmonary radiopacities. Dictated by: Penelope Granados M.D. on 11/07/2016 at 17:34 Chest X-ray IMPRESSION: Status post intubation with the endotracheal tube approximately 2 cm above the tu. Consider retracting the endotracheal tube approximately 2 cm. Dictated by: Penelope Granados M.D. on 11/07/2016 at 20:22 X-RAY CHEST ONE VIEW, PORTABLE IMPRESSION: No significant change from prior examination suggesting pulmonary edema and/or bibasilar pneumonia. X-RAY CHEST ONE VIEW, PORTABLE IMPRESSION: Bilateral lung opacities suggesting pulmonary edema. ARDS cannot be excluded. Assessment & Plan 56 y/o female past medical history of polysubstance abuse, is claiming of interstitial pneumonitis admitted for acute hypoxemic respiratory failure status post methamphetamine inhalation. #. Acute (on chronic) hypoxemic respiratory failure - Patient was extubated on November 15. She is doing fine with 1 L nasal cannula. - Currently awaiting placement, possibly in [facility]. #. Diffuse interstitial pneumonitis, diagnosed by surgical biopsy. Extensive history of smoking inhalation including cigarettes as well as methamphetamine. Teated with pulse Solu-Medrol - Taper prednisone 40 mg by mouth daily to 30 mg daily #. Status post intubation for ARDS, concern for hcap; present on admission, ongoing. No evidence for lower respiratory tract infection at this time. - ABX discontinued. #. Toxic encephalopathy. Possibly steroid psychosis on Solu-Medrol. This has been markedly improved over the past several days. She is very coherent and conversant versus and has generally appropriate cognitive functions. # Proximal muscle weakness, subacute, not present on admission. 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 - We will gradually titrate down her dose of steroids and continue with physical therapy. #Depression, chronic, but an acute flare, not present on admission - Continue mirtazapine. #. History of methamphetamine abuse, POA. Venous thromboembolism prophylaxis Lovenox CODE STATUS is: DO NOT RESUSCITATE/DO NOT INTUBATE Disposition: Currently awaiting bed in SNF or LTAC setting. Medically ready when bed is available. GI Prophylaxis: H2 sonu VTE Prophylaxis: Sub-Q Enoxaparin VTE Mechanical Devices: Intermittant Pneumatic CD Resuscitation Status: DNR/DNI:Do Not Resuscitate/Intubate Time spent 30 minutes Ananda Worthington MD Nov 21, 2016 14:09
--- NOTE | 2016-11-21 14:12 | NUR ---
Transfer Pt arrived to [facility] rm [id number] from [facility]. Rec'd report from [facility]. Pt arrived via hospital bed on 2L of O2. Pt requesting to go home to get underwear or to go for a walk outside with her friend. Policies explained to patient as well as being direct about her condition and what her plan is. Mckeon cath patent and draining to gravity. IV SL.
[2016-11-22] MEDS: Methadone 10 mg/mL Oral Concentrate PO SCH ×3 (00:01→16:30)
--- NOTE | 2016-11-22 02:08 | NUR ---
PSYCH; pt forgetful, "am I home?". "I need to go home and find my clothes", re: sig other "oh, I forgot, he is ." pt stated. Kept putting feet off the side of bed. Numerous reminders to stay in bed. Pt stated she forgot she was weak. Ativan 1mg given. Pt stated "one mg of Ativan wont help. I need two." Pt continued to be restless. Later methadone and Ativan 2mg given.- pt slept shortly after. [place] bed alarm on.
[2016-11-22] MEDS: Insulin LISPRO 300 Unit/3 mL Inj SUBQ SCH ×4 (03:36→20:30)
[2016-11-22 05:59] VITALS: BP 118/69; PULSE 83; RESP 16; O2SAT 94
[2016-11-22 07:56] VITALS: BP 97/62; PULSE 66; O2SAT 95
[2016-11-22] MEDS: Polyethylene Glycol (PEG) 17 Gm Powder PO SCH (08:00)
[2016-11-22] MEDS: predniSONE 20 mg Tablet PO SCH (08:02)
[2016-11-22] MEDS: Nystatin 100,000 Unit/Gm 15 Gm Powder TOPICAL SCH ×2 (08:02→22:42)
[2016-11-22 09:05] LABS: BASOPHILS % (AUTO) 0.4 % (0-3); EOSINOPHILS % (AUTO) 3.1 % (0-5); MONOCYTES % (AUTO) 6.7 % (4-12); Mean Corpuscular Hemoglobin 24.1 pg (27.0-35.0); Mean Corpuscular Volume 80.3 fL (81-100); NEUTROPHILS % (AUTO) 65.8 % (40-74); Platelet Count 259 bil/L (150-400)
[2016-11-22 09:25] LABS: Magnesium 1.8 mg/dL (1.6-2.6)
--- NOTE | 2016-11-22 11:27 | PCM.PALLBR ---
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 Extubated successfully on 11/15 Palliative medicine consulted to assist with determination of goals of care and reconciliation of patient and family wishes. As patient remains stable and advanced directive issues have been documented as noted below, palliative medicine will sign off at this time. Please let us know if we may be of further assistance. Summary of palliative recommendations: 11/19/16 Confirmed DNR/DNI status. Chemical dependency-very poor insight. 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 Unclear how much she will be able to recover. This may potentially require ongoing assisted care. Pain management-patient has no complaints now on methadone 10 mg 3 times a day Depression-chronic and mixed with her SUDS. On fluoxetine 40 mg. Would benefit from ongoing psychiatric intervention Reviewed setting goal of out of bed in chair at least 2 times per day. Disposition plan is for SNF-case management addressing this. 11/18/16 Confirmed POLST/DNR/DNI and no feeding tube with pt. She is willing to go to a SNF for a short period to strengthen. Concern for prox muscle weakness which she claims is new with this admission for being possible steroid myopathy-she continues pn high dose. Pain management seems well handled with the methadone dose but her addiction continues and their is little insight. Doubt this will be managed without inpatient time. -Symptom management (Pain/other)- continue use of prn medications for discomfort per medical team. Reviewed her chronic methadone use with Dr. Ojeda and he has restarted methadone, initially 10 mg TID with titration upwards as needed. Palliative will continue to follow and support as well. -DPOA/Advanced Directives/POLST- DO NOT RESUSCITATE/DO NOT INTUBATE/limited interventions. Today, following confirmation of this with the patient's daughter/GENARO Casey and her mother Li, I filled out a new POLST which Paola will sign when she visits the hospital next time. This document is in the front of the patient's paper chart outside her room. Per patient (and with her mother's agreement) not a candidate for reintubation -Family/emotional support- palliative medicine will continue to follow and provide support as able Additional Medical Diagnoses with primary management by Hospitalist team include : 1. Acute (on chronic) hypoxemic respiratory failure - 2. Diffuse desquamative interstitial pneumonitis, diagnosed by surgical biopsy. 3. ARDS, concern for hcap; present on admission, ongoing Problems: End of Life Preferences DO NOT RESUSCITATE/DO NOT INTUBATE/limited interventions Goals of Care Willing to go to SNF Disposition To be determined- it is almost a certainty that she will require SNF placement Resuscitation Status Resuscitation Status: DNR/DNI:Do Not Resuscitate/Intubate POLST Updates/Changes Previous POLST?: No Artificially Admin Nutrition: No Artifical Nutrition by Tube POLST Discussed with: Patient, Health Care Agent (DPOAHC) POLST Review Outcome: New Form Completed (requires signature by her POA/ daughter Carmela) . Pain: Mild Symptom management: Agitation, Pain Total time 20 minutes; >50% face to face with patient, providing counselling regarding plans and recommendations, and in care coordination with her medical teams. copies to: [facility] Palliative Brief Note Date of Service Nov 22, 2016 . Return to reevaluate patient. Prior to visiting, reviewed her updated records in the EMR in detail. When I arrived, she was resting quietly in bed. Continues to complain about wanting to go home. Symptomatically otherwise doing well. Physical exam essentially stable. Reviewed labs and imaging studies. Edin Winkler MD Nov 22, 2016 11:27
--- NOTE | 2016-11-22 11:48 | NUR ---
DIDIER Spoke with Apoorva at [facility] who confirms that they are able to accept the pt. Apoorva confirms that she will start authorization through [employer] today. DIDIER will continue to follow. OSKAR Garcia
[2016-11-22 14:58] VITALS: BP 132/76; PULSE 94; RESP 18; O2SAT 93
--- NOTE | 2016-11-22 18:20 | NUR ---
Activity Patient up to chair and sat at the side of bed for meals. Patient able to feed self. Patient tolerated transfer with no complaints. Patient reported 8/10 back pain. Scheduled methadone given. Denies nausea. Patient asked for 2 mg of lorazepam to help with pain and anxiety. Call light and tray table within reach. Will continue to monitor patient hourly.
--- NOTE | 2016-11-22 19:14 | PCM.PNMED ---
Subjective Date of Service Nov 22, 2016 Subjective denies any new issues/complaints Exam Vital Signs Vital Sign - Last Date Time Temp Pulse Resp B/P Pulse Ox O2 Delivery O2 Flow Rate FiO2 11/22/16 16:06 Nasal Cannula 2.00 11/22/16 14:58 36.8 94 18 132/76 93 11/17/16 03:40 94 Intake and Output 11/21/16 11/21/16 11/22/16 Cumulative From/Thru 15:00 23:00 07:00 11/07/16 15:10 - 11/22/16 05:59 Intake Total 1151 ml 236 ml 67689 ml Output Total 700 ml 950 ml 23073 ml Balance 451 ml -714 ml 474 ml Intake Oral 1151 ml 236 ml 6530 ml IV Total 46587 ml Tube Feeding 5002 ml Tube Irrigant 980 ml Output Urine Total 700 ml 950 ml 17232 ml Gastric Drainage Total 1700 ml # Voids 2 # Bowel Movements 11 General: Alert, Cooperative, No Acute Distress Eyes: Scleral Anicteric Mouth: Mucous Membr Moist/Frank Neck: Supple Chest & Lungs: Chest Wall Normal, Clear to auscultation & percussion Cardiovascular: Regular Rate/Rhythm Pulses: NL carotid, radial, femoral, DP, PT Abdomen: Non-tender, Non-distended, Normoactive bowel tones, Soft Genitialial: Normal (Mckeon cath in place) Extremities: No cyanosis/clubbing/edma bilat Neurological: Grossly Neurologically Intact, Normal Speech IVs and Medications Medications Reviewed: Medications were reviewed in detail Lab and Diagnostics Result Diagram: 11/22/16 0855 11/22/16 0855 X-Rays, CTs and MRIs Cervical Spine CT 1. No acute cervical spine injury. 2. Superior endplate depression at T4 which is new when compared with the prior cross-sectional study dated 03/21/16. The acuity of this finding is unknown. However, if the patient endorses focal pain in this region, acute compression deformity could be suspected. If further characterization is warranted, noncontrast MRI of the cervicothoracic region may be helpful. 3. "Crazy paving" pattern within the pulmonary apices bilaterally. There is a broad differential for this finding which includes pulmonary edema, ARDS, pulmonary alveolar proteinosis, acute interstitial pneumonia, and bacterial pneumonia. Dictated by: Penelope Granados M.D. on 11/07/2016 at 17:[address] 1. No acute intracranial findings. 2. 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 Dictated by: Penelope Granados M.D. on 11/07/2016 at 16:55 Chest X-ray IMPRESSION: New central venous catheter. Increased bilateral pulmonary radiopacities. Dictated by: Penelope Granados M.D. on 11/07/2016 at 17:34 Chest X-ray IMPRESSION: Status post intubation with the endotracheal tube approximately 2 cm above the tu. Consider retracting the endotracheal tube approximately 2 cm. Dictated by: Penelope Granados M.D. on 11/07/2016 at 20:22 X-RAY CHEST ONE VIEW, PORTABLE IMPRESSION: No significant change from prior examination suggesting pulmonary edema and/or bibasilar pneumonia. X-RAY CHEST ONE VIEW, PORTABLE IMPRESSION: Bilateral lung opacities suggesting pulmonary edema. ARDS cannot be excluded. Assessment & Plan 56 y/o female past medical history of polysubstance abuse, is claiming of interstitial pneumonitis admitted for acute hypoxemic respiratory failure status post methamphetamine inhalation. #. Acute (on chronic) hypoxemic respiratory failure - Patient was extubated on November 15. - Currently awaiting placement, possibly in [facility] bed. #. Diffuse interstitial pneumonitis, diagnosed by surgical biopsy. Extensive history of smoking inhalation including cigarettes as well as methamphetamine. Teated with pulse Solu-Medrol - appreciate pulmonology consult. f/u w/ recs - Taper prednisone - 30 mg for two weeks and then 20 mg until I see her back in followup. She should have a followup appointment already made with Dr. Francisco in December. #. Status post intubation for ARDS, concern for hcap; present on admission, ongoing. No evidence for lower respiratory tract infection at this time. - ABX discontinued. #. Toxic encephalopathy. Possibly steroid psychosis on Solu-Medrol. This has been markedly improved over the past several days. She is very coherent and conversant versus and has generally appropriate cognitive functions. # Proximal muscle weakness, subacute, not present on admission. 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 - We will gradually titrate down her dose of steroids and continue with physical therapy. #Depression, chronic, but an acute flare, not present on admission - Continue mirtazapine. #. History of methamphetamine abuse, POA. # D/C Mckeon cath today (11/22) and f/u Disposition: Currently awaiting bed in SNF or LTAC setting. Medically ready when bed is available. GI Prophylaxis: H2 sonu VTE Prophylaxis: Sub-Q Enoxaparin VTE Mechanical Devices: Intermittant Pneumatic CD Resuscitation Status: DNR/DNI:Do Not Resuscitate/Intubate Walt Galeano Nov 22, 2016 19:14
[2016-11-23 00:19] VITALS: BP 125/72; PULSE 88; RESP 18; O2SAT 95
[2016-11-23] MEDS: Methadone 10 mg/mL Oral Concentrate PO SCH ×4 (00:49→17:43)
--- NOTE | 2016-11-23 01:11 | NUR ---
Mckeon Mckeon catheter was discontinued at 2220. Patient had a scant amount of residual dribbling. Patient tolerated procedure well.
--- NOTE | 2016-11-23 04:19 | NUR ---
Pain reassessment Patient's pain reassessment was delayed due to a code blue in room 1005.
--- NOTE | 2016-11-23 04:21 | NUR ---
Mentation On initial assessment, patient wanted to leave AMA. Patient became agitated, restless. Ativan administered. Post Ativan, patient seemed to be able to engage in a normal conversation for moments at a time. Patient attempted to get out of bed on several occasions. PM medications administered. Mckeon discontinued at 2220. VSS. Call light within reach. Care continues.
[2016-11-23] MEDS: Insulin LISPRO 300 Unit/3 mL Inj SUBQ SCH ×4 (05:30→23:20)
[2016-11-23 05:54] VITALS: BP 135/68; PULSE 90; RESP 16; O2SAT 95
[2016-11-23 09:04] LABS: BASOPHILS % (AUTO) 0.3 % (0-3); EOSINOPHILS % (AUTO) 1.8 % (0-5); MONOCYTES % (AUTO) 7.8 % (4-12); Mean Corpuscular Hemoglobin 23.8 pg (27.0-35.0); Mean Corpuscular Volume 81.4 fL (81-100); NEUTROPHILS % (AUTO) 63.8 % (40-74); Platelet Count 281 bil/L (150-400)
[2016-11-23 09:50] LABS: Magnesium 1.9 mg/dL (1.6-2.6)
[2016-11-23] MEDS: predniSONE 20 mg Tablet PO SCH (10:47)
[2016-11-23] MEDS: Polyethylene Glycol (PEG) 17 Gm Powder PO SCH (10:49)
[2016-11-23] MEDS: Nystatin 100,000 Unit/Gm 15 Gm Powder TOPICAL SCH ×2 (11:00→21:46)
--- NOTE | 2016-11-23 11:19 | NUR ---
Called and left message for [facility] regarding authorization and if it had been started. Per [employer] patient is medically ready. Addendum: 11/23/16 at 1150 by ANGELA FISHER [facility] is continuing to work on this authorization and she will update me as soon as auth is done. Updated [employer]
[2016-11-23 13:50] VITALS: BP 131/7; PULSE 96; RESP 18; O2SAT 92
[2016-11-23 19:56] VITALS: BP 109/71; PULSE 103; RESP 18; O2SAT 93
--- NOTE | 2016-11-23 20:19 | PCM.PNMED ---
Subjective Date of Service Nov 23, 2016 Subjective Patient is beginning to feel a bit better and wants to go home and just lay on her couch. She has no new complaints today. Exam Vital Signs Vital Sign - Last Date Time Temp Pulse Resp B/P Pulse Ox O2 Delivery O2 Flow Rate FiO2 11/23/16 19:56 36.8 103 18 109/71 93 Nasal Cannula 2.00 11/17/16 03:40 94 Intake and Output 11/22/16 11/22/16 11/23/16 Cumulative From/Thru 14:59 22:59 06:59 11/07/16 15:10 - 11/23/16 05:29 Intake Total 940 ml 218 ml 94744 ml Output Total 450 ml 1600 ml 91140 ml Balance 490 ml -1382 ml -418 ml Intake Oral 940 ml 218 ml 7688 ml IV Total 95493 ml Tube Feeding 5002 ml Tube Irrigant 980 ml Output Urine Total 450 ml 1600 ml 52587 ml Gastric Drainage Total 1700 ml # Voids 2 # Bowel Movements 1 2 14 Exam General: Patient is in no apparent distress at present time. She is laying supine in bed with her head elevated approximately 30. HEENT: Head is atraumatic and normocephalic. Eyes: Pupils are equally round and reactive to light and accommodation. Extraocular muscles are intact. Sclera are white, anicteric. Subconjunctival mucosa is pink. Ears and nose are unremarkable. Oropharynx: There are no mucosal lesions, there is no thrush , there is no pharyngitis. Neck: Is supple, there are no nodes, or masses or tenderness. Chest: Is negative for bilateral crackles. There are no rubs or rhonchi. Heart: Rate, rhythm is regular. There is no new murmur, rub or gallop. Abdomen: Good bowel sounds are present. Abdomen is obese, soft, nontender, no organomegaly or masses were appreciated. Extremities: Are symmetrical and well perfused. There is no edema, there is no cellulitis, no rash. There are several healed scars from possible intravenous drug use in the past. Neurologic: There are no focal neurological deficits. Cranial nerves II through XII are intact. There are no sensory or motor deficits. Patient has overall weakness. Psychiatric: Patients mood is calm and she shows no sign of agitation. Genital: Deferred Rectal: Deferred Lab and Diagnostics Result Diagram: 11/23/16 0855 11/23/16 0855 Microbiology Sputum culture shows normal mark Blood cultures are negative at 5 days Respiratory PCR panel was negative MRSA nasopharyngeal screen was negative X-Rays, CTs and MRIs Cervical Spine CT 1. No acute cervical spine injury. 2. Superior endplate depression at T4 which is new when compared with the prior cross-sectional study dated 03/21/16. The acuity of this finding is unknown. However, if the patient endorses focal pain in this region, acute compression deformity could be suspected. If further characterization is warranted, noncontrast MRI of the cervicothoracic region may be helpful. 3. "Crazy paving" pattern within the pulmonary apices bilaterally. There is a broad differential for this finding which includes pulmonary edema, ARDS, pulmonary alveolar proteinosis, acute interstitial pneumonia, and bacterial pneumonia. Dictated by: Penelope Granados M.D. on 11/07/2016 at 17:[address] 1. No acute intracranial findings. 2. 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 Dictated by: Penelope Granados M.D. on 11/07/2016 at 16:55 Chest X-ray IMPRESSION: New central venous catheter. Increased bilateral pulmonary radiopacities. Dictated by: Penelope Granados M.D. on 11/07/2016 at 17:34 Chest X-ray IMPRESSION: Status post intubation with the endotracheal tube approximately 2 cm above the tu. Consider retracting the endotracheal tube approximately 2 cm. Dictated by: Penelope Granados M.D. on 11/07/2016 at 20:22 X-RAY CHEST ONE VIEW, PORTABLE IMPRESSION: No significant change from prior examination suggesting pulmonary edema and/or bibasilar pneumonia. X-RAY CHEST ONE VIEW, PORTABLE IMPRESSION: Bilateral lung opacities suggesting pulmonary edema. ARDS cannot be excluded. Cardiac Echo Impressions Echocardiogram Report Name: JONO RODNEY LStudy Barry e: 11/11/2016 Height: 64 in Hospital Exam Location: [facility] Weight: 219 lb Gender: Female BSA: 2.0 m2 : 1960 Age: 56 yrs BP: 152/64 mm Hg Reason For Study: Left Ventricular Systolic Dysfunction Ordering Physician: HOSPITALIST SVHPerformed By: Hyacinth Hahn Referring Physician: IAN ALCALA Interpretation Summary The ejection fraction is estimated to be 70-75%. There is discrete nodular thickening of the non- coronary cusp. The right ventricular systolic pressure is estimated at 51 mmHg assuming a right atrial pressure of 8 mm Hg. Compared to the prior echo exam, there has been an increase in the severity of pulmonary hypertension. Assessment & Plan The patient is a 56 -year-old white female with a past medical history of polysubstance abuse and biopsy-proven interstitial pneumonitis admitted for acute hypoxemic respiratory failure status post methamphetamine inhalation. #. Acute (on chronic) hypoxemic respiratory failure - Patient was extubated on November 15. - Currently awaiting placement - Overall improved #.. 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 - Extensive history of smoking inhalation including cigarettes as well as methamphetamine. Teated with pulse Solu-Medrol - Patient is now on a extended prednisone taper. - We appreciate pulmonology consult and will follow Dr. Martinez's recommendations to taper prednisone - She is to stay on prednisone 40 mg by mouth daily for 2 weeks then 30 mg for two weeks and then 20 mg until I see her back in followup. She should have a followup appointment already made with Dr. Francisco in December. #. Status post intubation for ARDS, and there was concern for healthcare associated pneumonia; present on admission, ongoing. No evidence for lower respiratory tract infection at this time. - The antibiotics have been discontinued. #. Toxic encephalopathy. 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 This has been markedly improved over the past several days. She is very coherent and conversant now and has generally appropriate cognitive functions. - However, she appears to be continuously vulnerable to making bad choices. # Proximal muscle weakness, subacute, not present on admission. 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 - We will gradually titrate down her dose of steroids and continue with physical therapy. - Patient will need transfer to a half-way facility for rehabilitation. # Depression, chronic, but an acute flare, not present on admission - Continue mirtazapine. #. History of methamphetamine abuse, present at the time of admission. - Patient counseled against this habit and any other drug habit. # Mckeon catheter was discontinued on 11/23/2015 Disposition: Currently awaiting bed in SNF or LTAC setting. Medically ready when bed is available. Pain Evaluation: Adequate Pain Control GI Prophylaxis: H2 sonu VTE Prophylaxis: Sub-Q Enoxaparin VTE Mechanical Devices: Intermittant Pneumatic CD Resuscitation Status: DNR/DNI:Do Not Resuscitate/Intubate Carlos Crenshaw MD Nov 23, 2016 20:19
[2016-11-24] MEDS: Methadone 10 mg/mL Oral Concentrate PO SCH ×3 (00:31→17:57)
--- NOTE | 2016-11-24 02:53 | NUR ---
Affect Patient appeared very tearful during shift and expressed that she felt depressed. On several occasions during the initial assessment, patient stated that she just wanted to sleep forever. Patient stated that she would like a visit from the control electrician. Patient cooperative with care. VSS. Call light within reach. Care continues.
[2016-11-24] MEDS: Insulin LISPRO 300 Unit/3 mL Inj SUBQ SCH ×4 (05:30→23:30)
[2016-11-24 06:15] VITALS: BP 115/75; PULSE 88; RESP 18; O2SAT 91
[2016-11-24 08:23] LABS: BASOPHILS % (AUTO) 0.3 % (0-3); EOSINOPHILS % (AUTO) 1.9 % (0-5); MONOCYTES % (AUTO) 7.5 % (4-12); Mean Corpuscular Hemoglobin 24.2 pg (27.0-35.0); NEUTROPHILS % (AUTO) 64.8 % (40-74); Platelet Count 288 bil/L (150-400)
[2016-11-24 08:56] LABS: Magnesium 1.9 mg/dL (1.6-2.6)
[2016-11-24] MEDS: Polyethylene Glycol (PEG) 17 Gm Powder PO SCH (10:30)
[2016-11-24] MEDS: Nystatin 100,000 Unit/Gm 15 Gm Powder TOPICAL SCH ×2 (10:32→22:38)
[2016-11-24] MEDS: predniSONE 20 mg Tablet PO SCH (10:34)
--- NOTE | 2016-11-24 11:10 | NUR ---
Mobility / Orientation Pt c/o feeling very weak. Has little muscle strength. She is able to move from the bed to the BSC, but is very unsteady and needs assistance for safety. Pt is consistently oriented to self, but is often confused about place and time. Preparing pt for transfer to SNF [facility], possibly today.
--- NOTE | 2016-11-24 12:52 | NUR ---
Social Work-readiness for discharge: Data:EMR reviewed. Pt is on day 17 for respiratory failure per H&P. Pt is not medically stable. PT [facility] working on [facility] with [employer] insurance. DIDIER called [facility] at [facility] today to check on status of authorization, message left. DIDIER received a call from Yolanda Turcios from [place] and [facility] [phone] wanting an update. DIDIER explained that pt has been accepted at [facility], awaiting authorization. Yolanda has completed assessment and would like to be updated on discharge. Paperwork and PASRR in the chart. SW will continue to follow. Assessment:Pt who would benefit from SNF. Plan: Pt has been [facility] when medically stable[facility] [employer]. Paperwork and PASRR in the chart. SW will continue to follow. OSKAR Garcia
[2016-11-24] MEDS ORDERED: diphenhydrAMINE 25 mg Capsule PO PRN (13:00)
[2016-11-24 15:41] VITALS: BP 103/64; PULSE 87; RESP 16; O2SAT 95
--- NOTE | 2016-11-24 18:10 | NUR ---
spiritual care: nurse referral visit attempt X2. pt sleeping or with staff. left note and will plan to follow
[2016-11-24 20:23] VITALS: BP 147/83; PULSE 91; RESP 18; O2SAT 97
--- NOTE | 2016-11-24 22:38 | PCM.PNMED ---
Subjective Date of Service Nov 24, 2016 Subjective Patient complains right hip pain and wants to know when she "can get her hip fixed". She has no other new complaints. Exam Vital Signs Vital Sign - Last Date Time Temp Pulse Resp B/P Pulse Ox O2 Delivery O2 Flow Rate FiO2 11/24/16 20:23 36.3 91 18 147/83 97 11/24/16 15:41 Room Air 11/24/16 12:45 2.00 Intake and Output 11/23/16 11/23/16 11/24/16 Cumulative From/Thru 15:00 23:00 07:00 11/07/16 15:10 - 11/24/16 06:37 Intake Total 440 ml 400 ml 96200 ml Output Total 300 ml 1900 ml 30379 ml Balance 140 ml -1500 ml -1778 ml Intake Oral 440 ml 400 ml 8528 ml IV Total 48332 ml Tube Feeding 5002 ml Tube Irrigant 980 ml Output Urine Total 300 ml 1900 ml 35191 ml Gastric Drainage Total 1700 ml # Voids 1 3 # Bowel Movements 1 1 16 Exam General: Patient is slightly more agitated today and is sitting up in bed. HEENT: Head is atraumatic and normocephalic. Eyes: Pupils are equally round and reactive to light and accommodation. Extraocular muscles are intact. Sclera are white, anicteric. Subconjunctival mucosa is pink. Ears and nose are unremarkable. Oropharynx: There are no mucosal lesions, there is no thrush , there is no pharyngitis. Neck: Is supple, there are no nodes, or masses or tenderness. Chest: Is significant for bilateral crackles as before. There are no rubs or rhonchi. Heart: Rate, rhythm is regular. There is no new murmur, rub or gallop. Abdomen: Good bowel sounds are present. Abdomen is obese, soft, nontender, no organomegaly or masses were appreciated. Extremities: Are symmetrical and well perfused. There is no edema, there is no cellulitis, no rash. There are several healed scars from intravenous drug use in the past, which patient admits to today.. Neurologic: There are no focal neurological deficits. Cranial nerves II through XII are intact. There are no sensory or motor deficits. Patient has overall weakness. Psychiatric: Patients mood is slightly more agitated today as she is frustrated with her right hip pain and need to have it "fixed". Genital: Deferred Rectal: Deferred Lab and Diagnostics Result Diagram: 11/24/16 0800 11/24/16 0800 Microbiology Sputum culture shows normal mark Blood cultures are negative at 5 days Respiratory PCR panel was negative MRSA nasopharyngeal screen was negative X-Rays, CTs and MRIs Cervical Spine CT 1. No acute cervical spine injury. 2. Superior endplate depression at T4 which is new when compared with the prior cross-sectional study dated 03/21/16. The acuity of this finding is unknown. However, if the patient endorses focal pain in this region, acute compression deformity could be suspected. If further characterization is warranted, noncontrast MRI of the cervicothoracic region may be helpful. 3. "Crazy paving" pattern within the pulmonary apices bilaterally. There is a broad differential for this finding which includes pulmonary edema, ARDS, pulmonary alveolar proteinosis, acute interstitial pneumonia, and bacterial pneumonia. Dictated by: Penelope Granados M.D. on 11/07/2016 at 17:[address] 1. No acute intracranial findings. 2. 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 Dictated by: Penelope Granados M.D. on 11/07/2016 at 16:55 Chest X-ray IMPRESSION: New central venous catheter. Increased bilateral pulmonary radiopacities. Dictated by: Penelope Granados M.D. on 11/07/2016 at 17:34 Chest X-ray IMPRESSION: Status post intubation with the endotracheal tube approximately 2 cm above the tu. Consider retracting the endotracheal tube approximately 2 cm. Dictated by: Penelope Granados M.D. on 11/07/2016 at 20:22 X-RAY CHEST ONE VIEW, PORTABLE IMPRESSION: No significant change from prior examination suggesting pulmonary edema and/or bibasilar pneumonia. X-RAY CHEST ONE VIEW, PORTABLE IMPRESSION: Bilateral lung opacities suggesting pulmonary edema. ARDS cannot be excluded. Cardiac Echo Impressions Echocardiogram Report Name: JONO RODNEY LStudy Barry e: 11/11/2016 Height: 64 in Hospital Exam Location: [facility] Weight: 219 lb Gender: Female BSA: 2.0 m2 : 1960 Age: 56 yrs BP: 152/64 mm Hg Reason For Study: Left Ventricular Systolic Dysfunction Ordering Physician: HOSPITALIST ARLETerformed By: Hyacinth Hahn Referring Physician: IAN ALCALA Interpretation Summary The ejection fraction is estimated to be 70-75%. There is discrete nodular thickening of the non- coronary cusp. The right ventricular systolic pressure is estimated at 51 mmHg assuming a right atrial pressure of 8 mm Hg. Compared to the prior echo exam, there has been an increase in the severity of pulmonary hypertension. Assessment & Plan The patient is a 56 -year-old white female with a past medical history of polysubstance abuse and biopsy-proven interstitial pneumonitis admitted for acute hypoxemic respiratory failure status post methamphetamine inhalation. #. Acute (on chronic) hypoxemic respiratory failure - Patient was extubated on November 15. - Currently awaiting placement - Overall improved #.. 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 - Extensive history of smoking inhalation including cigarettes as well as methamphetamine. Teated with pulse Solu-Medrol - Patient is now on a extended prednisone taper. - We appreciate pulmonology consult and will follow Dr. Francisco's recommendations to taper prednisone - She is to stay on prednisone 30 mg (which is the dose she is on now) for two weeks and then 20 mg until seen by Dr Francisco in follow-up. She should have a followup appointment already made with Dr. Francisco in December. #. Status post intubation for ARDS, and there was concern for healthcare associated pneumonia; present on admission, ongoing. No evidence for lower respiratory tract infection at this time. - The antibiotics have been discontinued. #. Toxic encephalopathy. 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 This has been markedly improved over the past several days. She is very coherent and conversant now and has generally appropriate cognitive functions. - However, she appears to be continuously vulnerable to making bad choices. # Proximal muscle weakness, subacute, not present on admission. 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 - We will gradually titrate down her dose of steroids and continue with physical therapy. - Patient will need transfer to a assisted facility for rehabilitation. # Depression, chronic, but an acute flare, not present on admission - Continue mirtazapine. #. History of methamphetamine abuse, present at the time of admission. - Patient counseled against this habit and any other drug habit. # Mckeon catheter was discontinued on 11/23/2015 Disposition: Currently awaiting bed in SNF or LTAC setting. Medically ready when bed is available. Pain Evaluation: Adequate Pain Control GI Prophylaxis: H2 sonu VTE Prophylaxis: Sub-Q Enoxaparin VTE Mechanical Devices: Intermittant Pneumatic CD Resuscitation Status: DNR/DNI:Do Not Resuscitate/Intubate Carlos Crenshaw MD Nov 24, 2016 22:38
[2016-11-25] MEDS: Methadone 10 mg/mL Oral Concentrate PO SCH ×3 (00:30→16:43)
--- NOTE | 2016-11-25 05:06 | NUR ---
Activity Patient agitated at start of shift, soon able to sleep, then slept heavily throughout the night. Tolerated pivoting from bed to BSC well with two person assist. Denies CP, SOB, and abdominal pain at this time. [place] alarm on for safety.
[2016-11-25 05:31] VITALS: BP 115/65; PULSE 90; RESP 18; O2SAT 98
[2016-11-25 06:41] LABS: BASOPHILS % (AUTO) 0.2 % (0-3); EOSINOPHILS % (AUTO) 1.5 % (0-5); MONOCYTES % (AUTO) 5.9 % (4-12); Mean Corpuscular Hemoglobin 24.1 pg (27.0-35.0); Mean Corpuscular Volume 82.7 fL (81-100); Platelet Count 299 bil/L (150-400)
[2016-11-25] MEDS: Polyethylene Glycol (PEG) 17 Gm Powder PO SCH (08:30)
[2016-11-25 08:50] VITALS: PULSE 95; O2SAT 83
[2016-11-25 09:30] VITALS: BP 123/70; PULSE 93; RESP 16; O2SAT 93
[2016-11-25] MEDS: predniSONE 20 mg Tablet PO SCH (09:36)
[2016-11-25] MEDS: Insulin LISPRO 300 Unit/3 mL Inj SUBQ SCH ×4 (09:38→23:45)
--- NOTE | 2016-11-25 10:52 | NUR ---
NUTRITION FOLLOW-UP: Assess: 56 YO F admitted to CCU with COPD exacerbation, severe hypoxemia, sepsis, and pneumonia, requiring intubation. She was extubated successfully 11/15. Diet advanced to dysphagia mechanical, thin liquids. PO intake 75-100% of most trays. Pt continues to await insurance authorization for placement. PMHx: Acute on chronic respiratory failure, desquamated interstitial pneumonia, tobacco, psychiatric disorder, HLD, opiate abuse, COPD, depression, asthma, anxiety, influenza A, PTSD. LABS: Reviewed. Cr 0.51, Gu 142, Alb 3.2, PAB 20. MEDICATIONS: Reviewed. DIET: Dysphagia mechanical, thin liquids. PO intake 75-100% of trays. GI: BM x 2 today. ANTHROPOMETRICS: Current Wt: 86.5 kg Admit Wt: 94.7 kg, IBW: 54.5 kg. ESTIMATED NEEDS: BMI Calories: 0123-3780 kcal/day (20-22 kcal/kg BW) Protein: 65-80 g/day (1.2-1.5 g/kg IBW) NUTRITION DIAGNOSIS: 1) Chewing / swallowing difficulties related to respiratory failure, as evidenced by slow diet progression, per ST order--PERSISTS. INTERVENTION: 1) Continue to advance diet as able per ST recommendations. MONITOR/EVALUATE: PO intake, labs, nutrition status. Follow per low nutrition risk guidelines.
[2016-11-25] MEDS: Nystatin 100,000 Unit/Gm 15 Gm Powder TOPICAL SCH ×2 (11:55→20:19)
[2016-11-25] MEDS: Sodium Chloride LOK Flush 10 mL Syringe IVFLUSH PRN ×2 (12:09→16:49)
[2016-11-25 16:21] VITALS: BP 117/69; PULSE 92; RESP 16; O2SAT 97
--- NOTE | 2016-11-25 17:34 | NUR ---
ACTIVITY Patient is alert and oriented to person only. Complained of hip pain. Scheduled Methadone and Morphine X 1 IV administered for pain. Ativan IV administered for complaints of anxiety. Tolerating liquids PO and her diet well. Denies nausea. No emesis noted. Denies SOB. Patient has been ambulating with SBA and the FWW. Tolerating activity well. She sat in the chair for a few minutes this shift and mostly sat at the bed. Voiding without any problems.
[2016-11-25 19:22] VITALS: BP 116/62; PULSE 115; RESP 16; O2SAT 90
--- NOTE | 2016-11-25 22:34 | PCM.PNMED ---
Subjective Date of Service Nov 25, 2016 Subjective Patient apparently became somewhat agitated last evening requiring a sitter. She is better today but very anxious to be discharged. Exam Vital Signs Vital Sign - Last Date Time Temp Pulse Resp B/P Pulse Ox O2 Delivery O2 Flow Rate FiO2 11/25/16 19:22 36.4 115 16 116/62 90 Room Air 11/25/16 16:21 1.00 Intake and Output 11/24/16 11/24/16 11/25/16 Cumulative From/Thru 15:00 23:00 07:00 11/07/16 15:10 - 11/25/16 05:48 Intake Total 656 ml 594 ml 17933 ml Output Total 700 ml 550 ml 20116 ml Balance -44 ml 44 ml -1778 ml Intake Oral 656 ml 594 ml 9778 ml IV Total 67773 ml Tube Feeding 5002 ml Tube Irrigant 980 ml Output Urine Total 700 ml 550 ml 92625 ml Gastric Drainage Total 1700 ml # Voids 3 3 9 # Bowel Movements 1 2 19 Exam General: Patient is sitting up on the side of the bed with her legs dangling. She complains of right hip discomfort HEENT: Head is atraumatic and normocephalic. Eyes: Pupils are equally round and reactive to light and accommodation. Extraocular muscles are intact. Sclera are white, anicteric. Subconjunctival mucosa is pink. Ears and nose are unremarkable. Oropharynx: There are no mucosal lesions, there is no thrush , there is no pharyngitis. Neck: Is supple, there are no nodes, or masses or tenderness. Chest: Is significant for bilateral crackles as before. There are no rubs or rhonchi. Heart: Rate, rhythm is regular. There is no new murmur, rub or gallop. Abdomen: Good bowel sounds are present. Abdomen is obese, soft, nontender, no organomegaly or masses were appreciated. Extremities: Are symmetrical and well perfused. There is no edema, there is no cellulitis, no rash. There are several healed scars from intravenous drug use in the past, which patient admits to today.. Neurologic: There are no focal neurological deficits. Cranial nerves II through XII are intact. There are no sensory or motor deficits. Patient has overall weakness. Psychiatric: Patients mood is slightly more agitated today as she is frustrated with her right hip pain and need to have it "fixed". Genital: Deferred Rectal: Deferred Lab and Diagnostics Result Diagram: 11/25/1652911/25/16529 Microbiology Sputum culture shows normal mark Blood cultures are negative at 5 days Respiratory PCR panel was negative MRSA nasopharyngeal screen was negative X-Rays, CTs and MRIs Cervical Spine CT 1. No acute cervical spine injury. 2. Superior endplate depression at T4 which is new when compared with the prior cross-sectional study dated 03/21/16. The acuity of this finding is unknown. However, if the patient endorses focal pain in this region, acute compression deformity could be suspected. If further characterization is warranted, noncontrast MRI of the cervicothoracic region may be helpful. 3. "Crazy paving" pattern within the pulmonary apices bilaterally. There is a broad differential for this finding which includes pulmonary edema, ARDS, pulmonary alveolar proteinosis, acute interstitial pneumonia, and bacterial pneumonia. Dictated by: Penelope Granados M.D. on 11/07/2016 at 17:[address] 1. No acute intracranial findings. 2. 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 Dictated by: Peneolpe Granados M.D. on 11/07/2016 at 16:55 Chest X-ray IMPRESSION: New central venous catheter. Increased bilateral pulmonary radiopacities. Dictated by: Penelope Granados M.D. on 11/07/2016 at 17:34 Chest X-ray IMPRESSION: Status post intubation with the endotracheal tube approximately 2 cm above the tu. Consider retracting the endotracheal tube approximately 2 cm. Dictated by: Penelope Granados M.D. on 11/07/2016 at 20:22 X-RAY CHEST ONE VIEW, PORTABLE IMPRESSION: No significant change from prior examination suggesting pulmonary edema and/or bibasilar pneumonia. X-RAY CHEST ONE VIEW, PORTABLE IMPRESSION: Bilateral lung opacities suggesting pulmonary edema. ARDS cannot be excluded. Cardiac Echo Impressions Echocardiogram Report Name: JONO RODNEY LStudy Barry e: 11/11/2016 Height: 64 in Hospital Exam Location: [facility] Weight: 219 lb Gender: Female BSA: 2.0 m2 : 1960 Age: 56 yrs BP: 152/64 mm Hg Reason For Study: Left Ventricular Systolic Dysfunction Ordering Physician: HOSPITALPATRICIO NICEerformed By: Hyacinth Hahn Referring Physician: IAN ALCALA Interpretation Summary The ejection fraction is estimated to be 70-75%. There is discrete nodular thickening of the non- coronary cusp. The right ventricular systolic pressure is estimated at 51 mmHg assuming a right atrial pressure of 8 mm Hg. Compared to the prior echo exam, there has been an increase in the severity of pulmonary hypertension. Assessment & Plan The patient is a 56 -year-old white female with a past medical history of polysubstance abuse and biopsy-proven interstitial pneumonitis admitted for acute hypoxemic respiratory failure status post methamphetamine inhalation. #. Acute (on chronic) hypoxemic respiratory failure - Patient was extubated on November 15. - Currently awaiting placement - Overall improved #.. 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 - Extensive history of smoking inhalation including cigarettes as well as methamphetamine. Teated with pulse Solu-Medrol - Patient is now on an extended prednisone taper. - We appreciate pulmonology consult and will follow Dr. Francisco's recommendations to taper prednisone - She is to stay on prednisone 30 mg (which is the dose she is on now) for two weeks and then 20 mg until seen by Dr Francisco in follow-up. She should have a followup appointment already made with Dr. Francisco in December. #. Status post intubation for ARDS, and there was concern for healthcare associated pneumonia; present on admission, ongoing. No evidence for lower respiratory tract infection at this time. - The antibiotics have been discontinued. #. Toxic encephalopathy. 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 This has been markedly improved over the past several days. She is very coherent and conversant now and has generally appropriate cognitive functions. However, last evening apparently was agitated and less coherent. She required a sitter last evening. - The patient continues to be vulnerable to making bad choices. # Proximal muscle weakness, subacute, not present on admission. 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 - We will gradually titrate down her dose of steroids and continue with physical therapy. - Patient will need transfer to a penitentiary facility for rehabilitation. # Depression, chronic, but an acute flare, not present on admission - Continue mirtazapine. #. History of methamphetamine abuse, present at the time of admission. - Patient counseled against this habit and any other drug habit. # Mckeon catheter was discontinued on 11/23/2015 Disposition: Currently awaiting bed in SNF or LTAC setting. Medically ready when bed is available. Pain Evaluation: Adequate Pain Control GI Prophylaxis: H2 sonu VTE Prophylaxis: Sub-Q Enoxaparin VTE Mechanical Devices: Intermittant Pneumatic CD Resuscitation Status: DNR/DNI:Do Not Resuscitate/Intubate Carlos Crenshaw MD Nov 25, 2016 22:34
[2016-11-26] VITALS: BP 122/71; PULSE 108; RESP 16; O2SAT 96
[2016-11-26] MEDS: Methadone 10 mg/mL Oral Concentrate PO SCH ×2 (00:48→08:56)
--- NOTE | 2016-11-26 02:12 | NUR ---
Restlessness Alert to self, and occasionally to place and time. Patient was very restless at beginning of shift, and had requested some Ativan. 2MG of Ativan IVP was given, and upon reassessment patient was sleeping and appeared comfortable. Patient continues to wake up periodically throughout the night, but is able to fall back to sleep shortly thereafter. Will continue to monitor for restlessness/agitation. [place] alarm is on.
[2016-11-26] MEDS: Insulin LISPRO 300 Unit/3 mL Inj SUBQ SCH (05:30)
[2016-11-26 05:40] VITALS: BP 145/80; PULSE 95; RESP 18; O2SAT 95
[2016-11-26 06:08] LABS: BASOPHILS % (AUTO) 0.4 % (0-3); EOSINOPHILS % (AUTO) 1.8 % (0-5); MONOCYTES % (AUTO) 7.4 % (4-12); Mean Corpuscular Hemoglobin 24.4 pg (27.0-35.0); Mean Corpuscular Volume 82.4 fL (81-100); NEUTROPHILS % (AUTO) 62.9 % (40-74); Platelet Count 272 bil/L (150-400)
[2016-11-26 06:28] LABS: Magnesium 1.9 mg/dL (1.6-2.6)
[2016-11-26] MEDS: Polyethylene Glycol (PEG) 17 Gm Powder PO SCH (08:53)
[2016-11-26] MEDS: predniSONE 20 mg Tablet PO SCH (08:53)
[2016-11-26] MEDS: Nystatin 100,000 Unit/Gm 15 Gm Powder TOPICAL SCH (09:01)
[2016-11-26 09:32] VITALS: BP 115/74; PULSE 95; RESP 18; O2SAT 94
--- NOTE | 2016-11-26 10:21 | NUR ---
Social Work- Readiness for Discharge Data: EMR reviewed. Pt is on day 19 for respiratory failure per H&P. Pt is medically stable to discharge at this time. DIDIER spoke with Apoorva at [facility] who states she has received an insurance authorization for pt to discharge to SNF. PT continues to recommend SNF placement. [facility] [place] is agreeable to accepting pt today with MD Cantu to follow. Apoorva, admissions at [facility], set up transportation for pt via cabulance at 1230. DIDIER called Yolanda Turcios from [facility] [phone] and updated her regarding discharge plan. DIDIER spoke with pt at bedside and pt's mother, Li, regarding discharge plan. MD notified of pt's insurance authorization. All updated and agreeable to plan. Paperwork and PASRR in the chart. SW will continue to follow. Assessment:Pt who would benefit from SNF. Plan: Pt has been accepted and authorized to discharge to [facility] via cabulance at 1230. DIDIER updated [facility] worker, pt/family, MD, and RN. Paperwork and PASRR in the chart. SW will continue to follow. Alcira Madsen, FUND RAISER
--- NOTE | 2016-11-26 11:09 | PCM.DIMED ---
Discharge Instructions Date of Service Nov 26, 2016 Dates of Hospitalization Nov 07, 2016 at 22:21 Discharge Diagnosis Discharge Diagnosis Pulmonary Fibrosis with Acute on Chronic Respiratory Failure Diet Heart Healthy Activity Outpatient Physical Therapy Call your provider Fever or Chills, Shortness of breath, Bleeding, Chest pain, Vomitting, Excessive diarrhea, Weakness (unilateral) Patient Instructions Follow-up Provider: Real Landa MD Follow-up with PCP in: 1 week Provider: Sophy Francisco MD Follow-up in: 4 weeks (Patient is to make an appointment in December of 2016) Carlos Crenshaw MD Nov 26, 2016 11:09
[2016-11-26] MEDS ORDERED: Insulin LISPRO 300 Unit/3 mL Inj SUBQ SCH (11:30)
[2016-11-26] MEDS ORDERED: POLY17PO6 PO (11:33)
[2016-11-26] MEDS ORDERED: KTC2C15 TOPICAL (11:33)
[2016-11-26] MEDS ORDERED: DIPH25CA6 PO (11:33)
[2016-11-26] MEDS ORDERED: LISI-571 PO (11:33)
[2016-11-26] MEDS ORDERED: NYST1POW25 TOPICAL (11:33)
[2016-11-26] MEDS ORDERED: METH10OR PO (11:33)
[2016-11-26] MEDS ORDERED: PRED-508 PO (11:33)
[2016-11-26] MEDS ORDERED: PRAZ2CAP2 PO (11:33)
[2016-11-26] MEDS ORDERED: IPRA3AMP NEB (11:33)
[2016-11-26] MEDS ORDERED: NICO1PAT6 TOPICAL (11:33)
[2016-11-26] MEDS ORDERED: ENOX40DI8 SUBQ (11:33)
[2016-11-26] MEDS ORDERED: Acetaminophen PO (11:33)
[2016-11-26] MEDS ORDERED: MIRT15TA6 PO (11:33)
[2016-11-26] MEDS ORDERED: ALBU1.25 NEB (11:33)
--- NOTE | 2016-11-26 12:27 | NUR ---
Faxed orders and placed copy in the chart, food safety field specialist arranged transportation for 1230.
--- NOTE | 2016-11-26 12:37 | NUR ---
DISCHARGE Triple lumen central line was d/c'd by IV therapy-drsg in place. BG prior to lunch was 219, covered with insulin. Patient states she felt anxious about discharge and wanted some IV ativan. I administered propranolol PO which was listed on EMAR for anxiety. Patient stood and transferred to wheelchair with SBA with FWW. Left with all personal belongings. Report called to [facility].
--- NOTE | 2016-11-26 13:13 | NUR ---
Palliative care note D/A: Note that pt discharged to [facility] today at 1230. Faxed completed copy of pt POLST to facility. POLST dated 11/17/[address] Winkler and pt and pt elects to be DNR/DNI. Her goal is comfort and reasonable, simple medical care-NO INTUBATION-NO CPR. She does elect to have limited additional interventions but continues to note the following: Do not use intubation or mechanical ventilation and crossed out the use of less invasive airway support meaning CPAP or biPAP, meaning that she does not wish less invasive airway support either. She wished that the use of antibiotics to be determines when infection occurs and does not wish to have nutrition via tube. P: No further need for palliative care to follow. Yoselin JUAREZ, CCM
--- NOTE | 2016-11-26 23:30 | PCM.DC.MED ---
Discharge Summary Date of Service Nov 26, 2016 Dates of Hospitalization Date of Hospital Admission Nov 07, 2016 at 22:21 Date of Discharge: Nov 26, 2016 Providers: Admitting Physician: Dennis Barreto MD Primary Care Physician: Martha Lanza Attending Physician: Dennis Barreto MD Diagnosis at Time of Discharge Diagnosis at Time of Discharge Pulmonary Fibrosis with Acute on Chronic Respiratory Failure Procedures XRay, CTs & MRIs Cervical Spine CT 1. No acute cervical spine injury. 2. Superior endplate depression at T4 which is new when compared with the prior cross-sectional study dated 03/21/16. The acuity of this finding is unknown. However, if the patient endorses focal pain in this region, acute compression deformity could be suspected. If further characterization is warranted, noncontrast MRI of the cervicothoracic region may be helpful. 3. "Crazy paving" pattern within the pulmonary apices bilaterally. There is a broad differential for this finding which includes pulmonary edema, ARDS, pulmonary alveolar proteinosis, acute interstitial pneumonia, and bacterial pneumonia. Dictated by: Penelope Granados M.D. on 11/07/2016 at 17:[address] 1. No acute intracranial findings. 2. 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 Dictated by: Penelope Granados M.D. on 11/07/2016 at 16:55 Chest X-ray IMPRESSION: New central venous catheter. Increased bilateral pulmonary radiopacities. Dictated by: Penelope Granados M.D. on 11/07/2016 at 17:34 Chest X-ray IMPRESSION: Status post intubation with the endotracheal tube approximately 2 cm above the tu. Consider retracting the endotracheal tube approximately 2 cm. Dictated by: Penelope Granados M.D. on 11/07/2016 at 20:22 X-RAY CHEST ONE VIEW, PORTABLE IMPRESSION: No significant change from prior examination suggesting pulmonary edema and/or bibasilar pneumonia. X-RAY CHEST ONE VIEW, PORTABLE IMPRESSION: Bilateral lung opacities suggesting pulmonary edema. ARDS cannot be excluded. Cardiac Echo Impression Echocardiogram Report Name: JONO RODNEY LStudy Barry e: 11/11/2016 Height: 64 in Hospital Exam Location: [facility] Weight: 219 lb Gender: Female BSA: 2.0 m2 : 1960 Age: 56 yrs BP: 152/64 mm Hg Reason For Study: Left Ventricular Systolic Dysfunction Ordering Physician: HOSPITALIST ARLETerformed By: Hyacinth Hahn Referring Physician: IAN ALCALA Interpretation Summary The ejection fraction is estimated to be 70-75%. There is discrete nodular thickening of the non- coronary cusp. The right ventricular systolic pressure is estimated at 51 mmHg assuming a right atrial pressure of 8 mm Hg. Compared to the prior echo exam, there has been an increase in the severity of pulmonary hypertension. Brief History Pertinent admission H&P: This is a 56-year-old female, who was brought in by paramedics because of right hip pain after a ground level fall. She has had multiple falls for the past two years. EMS was called and reported that her O2 sat was 30% on room air with blue lips and purple extremities but still mentating. On arrival in the emergency department, her sat was 52% on room air, rising to 94% with a non-rebreather oxygen mask, keeping her eyes closed and not responding. She was eventually placed on BiPAP and then eventually was intubated in the emergency department. She was just in the hospital two months ago for COPD exacerbation, influenza A and pneumonia. At that time, she was discharged on a methadone regimen. She is known to be a multi- substance user and a urine drug screen is reported to be positive for methamphetamines, heroin and alcohol, although that is not in the lab records. Her alcohol level is less than 10 and no actual drug screen is found. Her chest x-ray shows bilateral infiltrates, not much change from August. Her initial ABG on BiPAP had a pH of 7.33, pCO2 49, pO2 59, bicarb of 25. Subsequent to that, her pH dropped to 7.27 with a pCO2 52, pO2 of 258 after she was intubated. Clearly, she was experiencing respiratory failure and is now on track to be admitted to the intensive care unit in the next few hours once staffing is available. Her recent history of pulmonary symptoms is unclear. It is not clear where she lives or who she lives with. She is unable to explain anything in that regard. It is also not clear whether she has been febrile, coughing or smoking at this time. During my visits to her in the emergency department, she has been quite calm but unresponsive mentally. She is now on propofol and is similarly apparently stable hemodynamically. Summarizing her last hospitalization here, she had admitted with four days of worsening shortness of breath, reporting she had never required intubation and then had been placed on BiPAP temporarily, but had apparently done well without it, recovering from her influenza A and pneumonia over a four-day period. She apparently follows with Dr. Francisco as an outpatient for her COPD and is on 90 mg of methadone chronically. Prior to admission, patient had made it clear to her human resources technician that she did not wish to be reintubated. Because of her acute respiratory failure, she was intubated in the emergency department. Since that time, her mother has insisted on continuing mechanical ventilation, despite the patient's indicating to caregivers that she wanted to be extubated and would not want to be reintubated in case she failed. Palliative medicine was consulted to assist in sorting out this conundrum, and to assist in reconciling patient and family goals of care Prior to visiting, I reviewed her updated records in the EMR in detail, dating back over the last several years. Also spoke with her medical team and reviewed her status on critical care rounds, and spoke with her bedside nurse. On my arrival, patient is intubated and mechanically ventilated, but awake and fully alert. She indicates understanding by nodding and shaking her head and by squeezing my hand, one squeeze for yes and 2 for no. I was able to interview her in detail, and repeated questions from different approaches, all with consistent responses. She indicated unequivocally today to me that she wants to be extubated ANNEL and would not want to be reviewed intubated were she to suffer respiratory failure. She also indicated this when questioned by pulmonary medicine physician and her hospitalist. After my interaction with her, I contacted her mother by phone and reviewed patient's overall status and wishes she has communicated to the team. Her mother ultimately did agree that it was the patient's right to decide what care she wanted, and assented to her being extubated Hospital Course The patient is a 56 -year-old white female with a past medical history of polysubstance abuse and biopsy-proven interstitial pneumonitis admitted for acute hypoxemic respiratory failure status post methamphetamine inhalation. #. Acute (on chronic) hypoxemic respiratory failure - Patient was extubated on November 15. - Currently awaiting placement - Overall improved #.. 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 - Extensive history of smoking inhalation including cigarettes as well as methamphetamine. Teated with pulse Solu-Medrol - Patient is now on an extended prednisone taper. - We appreciate pulmonology consult and will follow Dr. Francisco's recommendations to taper prednisone - She is to stay on prednisone 30 mg (which is the dose she is on now) for two weeks and then 20 mg until seen by Dr Francisco in follow-up. She should have a followup appointment already made with Dr. Francisco in December. #. Status post intubation for ARDS, and there was concern for healthcare associated pneumonia; present on admission, ongoing. No evidence for lower respiratory tract infection at this time. - The antibiotics have been discontinued. #. Toxic encephalopathy. 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 This has been markedly improved over the past several days. She is very coherent and conversant now and has generally appropriate cognitive functions. However, last evening apparently was agitated and less coherent. She required a sitter last evening. - The patient continues to be vulnerable to making bad choices. # Proximal muscle weakness, subacute, not present on admission. 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 - We will gradually titrate down her dose of steroids and continue with physical therapy. - Patient will need transfer to a nursing home facility for rehabilitation. # Depression, chronic, but an acute flare, not present on admission - Continue mirtazapine. #. History of methamphetamine abuse, present at the time of admission. - Patient counseled against this habit and any other drug habit. # Mckeon catheter was discontinued on 11/23/2015 Disposition: Currently awaiting bed in SNF or LTAC setting. Patient is being transferred to [facility] today. Exam Vital Signs (Last) Date Time Temp Pulse Resp B/P Pulse Ox O2 Delivery O2 Flow Rate FiO2 11/26/16 09:32 36.7 95 18 115/74 94 Room Air 11/26/16 05:40 2.00 Exam General: Patient is sitting up on the side of the bed with her legs dangling. She complains of right hip discomfort HEENT: Head is atraumatic and normocephalic. Eyes: Pupils are equally round and reactive to light and accommodation. Extraocular muscles are intact. Sclera are white, anicteric. Subconjunctival mucosa is pink. Ears and nose are unremarkable. Oropharynx: There are no mucosal lesions, there is no thrush , there is no pharyngitis. Neck: Is supple, there are no nodes, or masses or tenderness. Chest: Is significant for bilateral crackles as before. There are no rubs or rhonchi. Heart: Rate, rhythm is regular. There is no new murmur, rub or gallop. Abdomen: Good bowel sounds are present. Abdomen is obese, soft, nontender, no organomegaly or masses were appreciated. Extremities: Are symmetrical and well perfused. There is no edema, there is no cellulitis, no rash. There are several healed scars from intravenous drug use in the past, which patient admits to today.. Neurologic: There are no focal neurological deficits. Cranial nerves II through XII are intact. There are no sensory or motor deficits. Patient has overall weakness. Psychiatric: Patients mood is slightly more agitated today as she is frustrated with her right hip pain and need to have it "fixed". Genital: Deferred Rectal: Deferred Test 11/07/16 17:32 11/07/16 17:50 11/11/16 04:00 11/12/16 05:00 Hemoglobin A1c 6.8% (4.8-5.6) Lactic Acid Level 1.1mmol/L (0.4-2.0) Ammonia 31ug/dL (18-53) Salicylates Level < 3.0ug/mL (30-250) Acetaminophen Level < 15.0ug/mL Rx (10-25) Alcohols < 10mg/dL (0-10) Urine Color Dark yellow (YELLOW) Urine Appearance Hazy (CLEAR,HAZY) Urine pH 5.5 (5.0-8.0) Urine Specific [place] >1.030 (1.003-1.035) Urine Protein Negativemg/dL (NEG,TRACE) Urine Glucose (UA) Negativemg/dL (NEGATIVE) Urine Ketones Negativemg/dL (NEGATIVE) Urine Occult Blood Negative (NEGATIVE) Urine Nitrite Negative (NEGATIVE) Urine Bilirubin Negative (NEGATIVE) Urine Urobilinogen Normalmg/dL (NORMAL) Urine Leukocyte Esterase Negative (NEGATIVE) Urine RBC 0-2/hpf (0-2) Urine WBC 0-5/hpf (0-5) Urine Epithelial Cells Moderate/hpf (NONE-MOD) Urine Crystals None seen (NONE SEEN) Urine Bacteria Few/hpf (NONE-FEW) Urine Hyaline Casts Occasional/lpf (NONE) Urine Granular Casts None seen (NONE SEEN) Urine Waxy Casts None seen (NONE SEEN) Urine Red Blood Cell Casts None seen (NONE SEEN) Urine White Blood Cell Casts None seen (NONE SEEN) Urine Mucus None seen (None Seen) Urine Trichomonas None seen (NONE SEEN) Urine Yeast None (NONE SEEN) Urinalysis Comment None Urine Culture Reflexed Not indicated Urine Opiates Screen Negative Urine Methadone Screen Positive Urine Barbiturates Screen Negative Urine Amphetamines Screen Positive Urine Benzodiazepines Screen Negative Urine Cocaine Metabolite Screen Negative Urine Cannabinoids Screen Negative Urine Legionella pneumophilia Ag Negative (Negative) Prealbumin 20mg/dL (20-40) Procalcitonin 0.08ng/mL (0.00-0.08) Phosphorus Level 2.6mg/dL (2.5-4.9) Test 11/26/16 05:10 White Blood Count 11.6th/mm3 (3.8-10.1) Red Blood Count 5.01mil/mm3 (3.90-5.20) Hemoglobin 12.2g/dL (12.0-15.6) Hematocrit 41.3% (35.0-46.0) Mean Corpuscular Volume 82.4fL (81-100) Mean Corpuscular Hemoglobin 24.4pg (27.0-35.0) Mean Corpuscular Hemoglobin Concent 29.5% (32.0-37.0) Red Cell Distribution Width 21.6% (12.3-15.4) Platelet Count 272bil/L (150-400) Neutrophils (%) (Auto) 62.9% (40-74) Lymphocytes (%) (Auto) 27.2% (14-46) Monocytes (%) (Auto) 7.4% (4-12) Eosinophils (%) (Auto) 1.8% (0-5) Basophils (%) (Auto) 0.4% (0-3) Sodium Level 138mEq/L (134-144) Potassium Level 4.3mEq/L (3.5-5.2) Chloride Level 100mEq/L (97-108) Carbon Dioxide Level 21mmol/L (18-29) Blood Urea Nitrogen 12mg/dL (6-24) Creatinine 0.59mg/dL (0.57-1.00) Estimat Glomerular Filtration Rate 150mL/min (>59) Glucose Level 105mg/dL (60-99) Calcium Level 9.5mg/dL (8.5-10.1) Magnesium Level 1.9mg/dL (1.6-2.6) Total Bilirubin 0.2mg/dL (0.0-1.2) Aspartate Amino Transf (AST/SGOT) 17U/L (0-50) Alanine Aminotransferase (ALT/SGPT) 26U/L (0-32) Alkaline Phosphatase 101U/L (25-150) Total Protein 6.1g/dL (6.4-8.4) Albumin 3.4g/dL (3.4-5.0) Microbiology Results Sputum culture shows normal mark Blood cultures are negative at 5 days Respiratory PCR panel was negative MRSA nasopharyngeal screen was negative Discharge Medications Discharge Medications ([Acetaminophen]) 325 MG TABLET 650 MG PO HS Prescribed by: FOUZIA CRENSHAW MD Aspirin Chew (Aspirin Chew) 81 Mg Tablet 81 MG PO DAILY Prescribed by: DANIEL PINA DO Atorvastatin Calcium (Atorvastatin Calcium) 20 Mg Tablet 20 MG PO HS Prescribed by: DANIEL PINA DO Enoxaparin Sodium (Enoxaparin Sodium) 40 Mg/0.4 Ml Syringe 40 MG SUBQ DAILY Prescribed by: FOUZIA CRENSHAW MD Fluoxetine (Fluoxetine) 20 Mg Capsule 40 MG PO QAM (Reported) Fluticasone Propionate (Fluticasone Propionate Nasal) 16 Gm [place].susp 2 SPRAYS NASAL DAILY (Reported) Gabapentin (Gabapentin) 300 Mg Capsule 600 MG PO BID (Reported) Gabapentin (Gabapentin) 300 Mg Capsule 300 MG PO MIDDAY (Reported) Ketoconazole (Ketoconazole) 15 Gm Cream..g. 1 APPLIC TOPICAL BID Prescribed by: FOUZIA CRENSHAW MD Lisinopril (Lisinopril) 5 Mg Tablet 10 MG PO DAILY Prescribed by: FOUZIA CRENSHAW MD Methadone Intensol (Methadone Intensol) 10 Mg/1 Ml Conc 10 MG PO Q8 Prescribed by: FOUZIA CRENSHAW MD Mirtazapine (Mirtazapine) 15 Mg Tablet 15 MG PO HS Prescribed by: FOUZIA CRENSHAW MD Multivitamin (Once Daily) 1 Each Tablet 1 EACH PO DAILY (Reported) Nicotine 21 mg/24 hr Patch (Nicotine 21 mg/24 hr Patch) 1 Each Patch.td24 1 PATCH TOPICAL DAILY Prescribed by: FOUZIA CRENSHAW MD Nystatin (Nystatin) 1 Each Powder.ea. 1 APPLIC TOPICAL BID Prescribed by: FOUZIA CRENSHAW MD Omeprazole (Omeprazole) 20 Mg Capsule.dr 20 MG PO DAILY (Reported) Polyethylene Glycol 3350 (Miralax) 17 Gm Powd.pack 17 GM PO DAILY Prescribed by: FOUZIA CRENSHAW MD Prednisone (Deltasone) 20 Mg Tablet 30 MG PO DAILY Patient is to take 1 and 1/2 tabs for two weeks. Prescribed by: FOUZIA CRENSHAW MD Prednisone (Deltasone) 20 Mg Tablet 30 MG PO DAILY Patient is to take 1 and 1/2 tabs for two weeks. Prescribed by: FOUZIA CRENSHAW MD Prednisone (Deltasone) 20 Mg Tablet 30 MG PO DAILY Patient is to take 1 and 1/2 tabs for two weeks. Prescribed by: FOUZIA CRENSHAW MD Prednisone (Deltasone) 20 Mg Tablet 30 MG PO DAILY Patient is to take 1 and 1/2 tabs for two weeks. Prescribed by: FOUZIA CRENSHAW MD Tiotropium [place] (Spiriva) 18 Mcg Cap.w.dev 18 MCG INHALATION DAILY Prescribed by: LATRICE VIDAL MD As needed Albuterol Neb Soln (Albuterol Neb Soln) 1.25 Mg/3 Ml Vial.neb 1.25 MG NEB Q2H PRN PRN For Shortness of Breath Prescribed by: FOUZIA CRENSHAW MD Albuterol Sulfate (Ventolin HFA Inhaler) 200 Puff/18 Gm Inhaler 1 PUFF INH Q4 PRN PRN For Wheezing Prescribed by: SWATHI BALDERAS DO Hydroxyzine Pamoate (HydrOXYzine Pamoate) 50 Mg Capsule 50 MG PO QID PRN PRN For Anxiety (Reported) Ipratropium/Albuterol Sulfate (Iprat-Albut 0.5-3(2.5) mg/3 mL Inhalant Soln) 3 Ml Ampul.neb 3 ML NEB Q4H PRN PRN For Wheezing Prescribed by: FOUZIA CRENSHAW MD Prazosin (Prazosin) 2 Mg Capsule 4 MG PO HS PRN PRN nightmares "NIGHTMARES" Prescribed by: FOUZIA CRENSHAW MD Propranolol HCl (Propranolol HCl) 10 Mg Tablet 10 MG PO TID PRN PRN For Anxiety (Reported) diphenhydrAMINE HCl (Benadryl) 25 Mg Capsule 25 MG PO HS PRN PRN For Itching Prescribed by: FOUZIA CRENSHAW MD Followup Plan Disposition: Patient is being discharged to [facility] today. Discharge Diet: Heart Healthy Discharge Activity: Outpatient Physical Therapy Follow-up Provider: Real Landa MD Follow-up with PCP in: 1 week Provider: Sophy Francisco MD Follow-up in: 4 weeks (Patient is to make an appointment in December of 2016) Time spent Time spent on discharging this patient was greater than 35 minutes, over half of which was involved in counseling and coordination of care. Carlos Crenshaw MD Nov 26, 2016 23:30
== END 2016-11-26 12:26 | DRG 130 ==
LOC: EDUNIT# 15:00 → SED 15:00 → EDBD 15:00 → CCU 22:21 → PCC 11-15 22:04 → OSC 11-21 13:55
PROVIDERS: ADMIT Family Medicine; ATTEND Family Medicine
PROC: 5A1955Z Respiratory Ventilation, Greater than 96 Consecutive Hours (ICD-10-PCS; principal; 2016-11-07)
PROC: 0BH17EZ Insertion of Endotracheal Airway into Trachea, Via Natural or Artificial Opening (ICD-10-PCS; 2016-11-07)
PROC: 4A033R1 Measurement of Arterial Saturation, Peripheral, Percutaneous Approach (ICD-10-PCS; 2016-11-07)
DX: J84.117 Desquamative interstitial pneumonia (principal); G92 Toxic encephalopathy; J96.21 Acute and chronic respiratory failure with hypoxia; G72.0 Drug-induced myopathy; J44.1 Chronic obstructive pulmonary disease with (acute) exacerbation; J84.112 Idiopathic pulmonary fibrosis; F32.9 Major depressive disorder, single episode, unspecified; J45.909 Unspecified asthma, uncomplicated; E11.9 Type 2 diabetes mellitus without complications; Z79.4 Long term (current) use of insulin; F17.210 Nicotine dependence, cigarettes, uncomplicated; I10 Essential (primary) hypertension; Z51.5 Encounter for palliative care; T38.0X5A Adverse effect of glucocorticoids and synthetic analogues, initial encounter

== ENCOUNTER 2017-03-25 15:30 | Inpatient (IN) | payer OTHER, MEDICAID ==
[~2017-03-25] VITALS: Ht 162.6 cm; Wt 85.7 kg
[~2017-03-25 15:30] MED LIST changes: +ACET325T51 PO; +ALBU1.25 NEB; -BUSP15TA3 PO; -CEFU500T61 PO; +DICL100G26 TOPICAL; -DICY20TA10 PO; +DIPH25CA6 PO; +IPRA3AMP NEB; +LISI30TA5 PO; +LORA0.5T PO; +METF500T PO; -METH10OR PO; +MIRT15TA6 PO; +MTH10T PO; -MULT-666 PO; +NICO1PAT16 TRANSDERM; +NYST15PO5 TP; -OSLT75C PO; +POLY17PO2 PO; +POTA10TA12 PO; +PRE10 PO; -PRE20 PO; +PREN-56 PO; -SULF1TAB35 PO; -TIOT18CA3 INHALATION; +TRAM50TA2 PO; +UMEC62.5 IH
[2017-03-25 15:55] VITALS: BP 71/45; PULSE 94; RESP 16; O2SAT 92
[2017-03-25] MEDS ORDERED: 0.9% Sodium Chloride 1,000 ML IV ONE ×2 (16:04→17:48)
[2017-03-25 16:12] VITALS: BP 97/45; PULSE 93; RESP 15; O2SAT 93
--- NOTE | 2017-03-25 16:31 | DRSVH ---
PROCEDURE: X-RAY CHEST ONE VIEW, PORTABLE ([id number]) INDICATIONS: chest pain TECHNIQUE: One view of the chest was acquired. COMPARISON: [facility], CR, XR CHEST 1VW (PORTABLE), 03/01/2017, 8:04. [facility], CR, XR CHEST 1VW (PORTABLE), 02/26/2017, 3:57. FINDINGS: Surgical changes and devices: None. Lungs and pleura: No pleural effusions or pneumothorax. Lungs are mildly edematous. Mediastinum: Mediastinal contours appear normal. Heart size is at the upper limits of normal. Bones and chest wall: No suspicious bony lesions. Overlying soft tissues appear unremarkable. IMPRESSION: Mild edema pattern within the lung parenchyma, heart size at upper limits of normal, susp ect mild acute exacerbation of chronic CHF. Dictated by: Lennox Melgoza M.D. on 03/25/2017 at 16:28 Approved by: Lennox Melgoza M.D. on 03/25/2017 at 16:29
--- NOTE | 2017-03-25 16:54 | ED.REPORT ---
HPI-Extremity Problem Lower Date of Service Mar 25, 2017 ED Provider: Rohan Shanks MD A 56 year old female with a history of interstitial lung disease, emphysema, pneumonia, diabetes, COPD, acute on chronic respiratory failure, depression, anxiety, sepsis and polysubstance abuse is referred to the ED by her senior account representative due to right leg swelling onset three days ago. The pt was at an appointment with her senior account representative today for pre-operative evaluation when the swelling was noted. An ultrasound was performed and a right lower extremity DVT was diagnosed. The pt denies chest pain or difficulty breathing. She also denies history of blood clot, recent travel, or bleeding. The pt was admitted one month ago and had a positive d-dimer at that time. Nursing Notes Stated Complaint: RT LEG SWELLING- Chief Complaint: Extremity Trauma Nursing Notes Reviewed: Yes Allergies: Coded Allergies: iodine (Verified Allergy, Unknown, 02/20/17) Egg Yolk (Verified Adverse Reaction, Intermediate, Nausea,Vomiting, ) Scheduled Aspirin Chew (Aspirin Chew) 81 Mg Tablet 81 MG PO DAILY Atorvastatin Calcium (Atorvastatin Calcium) 20 Mg Tablet 20 MG PO HS Fluoxetine (Fluoxetine) 20 Mg Capsule 40 MG PO QAM Furosemide (Furosemide) 40 Mg Tablet 40 MG PO QAM Gabapentin (Gabapentin) 300 Mg Capsule 600 MG PO BID Gabapentin (Gabapentin) 300 Mg Capsule 300 MG PO MIDDAY Lisinopril (Lisinopril) 30 Mg Tablet 30 MG PO DAILY Metformin (Glucophage) 500 Mg Tablet 1,000 MG PO BIDWM Methadone (Methadone) 10 Mg Tab 70 MG PO DAILY Mirtazapine (Mirtazapine) 15 Mg Tablet 15 MG PO HS Omeprazole (Omeprazole) 20 Mg Capsule.dr 20 MG PO QAM [id number]/Iron Fumarate/FA/Dss ( 19 Tablet) 1 Each Tablet 1 EACH PO QAM Potassium Chloride ER (Potassium Chloride ER) 10 Meq Tablet 10 MEQ PO DAILYWM TAKE WITH FOOD Scheduled PRN Albuterol Neb Soln (Albuterol Neb Soln) 1.25 Mg/3 Ml Vial.neb 1.25 MG NEB Q2H PRN PRN For Shortness of Breath Albuterol Sulfate (Ventolin HFA Inhaler) 200 Puff/18 Gm Inhaler 1 PUFF INH Q4 PRN PRN For Wheezing Fluticasone Propionate (Fluticasone Propionate Nasal) 16 Gm [place].susp 2 SPRAYS NASAL DAILY PRN PRN For Congestion Hydroxyzine Pamoate (HydrOXYzine Pamoate) 50 Mg Capsule 50 MG PO QID PRN PRN For Anxiety Ipratropium/Albuterol Sulfate (Iprat-Albut 0.5-3(2.5) mg/3 mL Inhalant Soln) 3 Ml Ampul.neb 3 ML NEB Q4H PRN PRN For Wheezing Lorazepam (Lorazepam) 0.5 Mg Tablet 0.5 MG PO BID PRN PRN For Anxiety Polyethylene Glycol 3350 (Polyethylene Glycol 3350) 17 Gm Powd.pack 17 GM PO DAILY PRN PRN For Constipation Prazosin (Prazosin) 2 Mg Capsule 4 MG PO HS PRN PRN nightmares "NIGHTMARES" Propranolol HCl (Propranolol HCl) 10 Mg Tablet 10 MG PO TID PRN PRN For Anxiety General Time Seen by MD: 16:03 Chief Complaint Other (right leg swelling) Hx Obtained From: Patient Arrived By: Walk-in Onset Occurred: 3 days ago Symptom Duration: Since onset Recent Healthcare: Recent doctor visit, Recent hospitalization Similar Sx Previous: No Past Medical History Past Medical History Notes: senior account representative: Dr. 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 Ambulatory Status Walker Review of Systems Review of Systems Note: hip pain Musculoskeletal: Reports: Extremity pain, Denies: Neck pain Skin: Denies Rash Complete sys rev & neg: except as marked. Respiratory: Denies: Non-productive cough, Shortness of breath Cardiovascular: Denies: Chest pain GI: Denies: Abdominal pain, Vomiting Physical Exam Initial Vital Signs Vital Signs (First) Date Time Temp Pulse Resp B/P Pulse Ox O2 Delivery O2 Flow Rate FiO2 03/25/17 15:55 37.0 94 16 71/45 92 Room Air Initial VS: Reviewed Lower Extremity / Pelvis / MS: Neurologic intact, Vascular intact positive Moreno's sign, right lower extremity diffuse swelling of right lower extremity Ankle / Foot: Atraumatic, Full range of motion General/Constitutional: Awake, Alert Respiratory / Chest: Atraumatic, Breath sounds NL, Breath sounds = bilat, No respiratory distress Cardiovascular: Heart rate NL, Regular rhythm, Heart sounds NL Skin: Atraumatic, Color NL, No rash, Warm, Dry Neurologic: Oriented X3, Speech NL, No motor deficits, No sensory deficits Head / Eyes: Atraumatic, Normocephalic, PERRL, EOMI ENT: Atraumatic, Airway patent, Mucous membranes moist Neck: Atraumatic, Supple, Full range of motion Abdomen: Atraumatic, Soft, Non-tender Back: Atraumatic, Full range of motion Upper Extremity / MS: Atraumatic, Full range of motion Psychiatric: Affect NL, Mood NL Interpretation & Diagnostics Interpretation & Diagnostics: US Veinous Leg Duplex Unilateral, right (prior to ED visit): IMPRESSION: Bifid popliteal vein present with occlusive venous thrombus within one of the vessels. Martha Pendgiovannirasnhan given results at 1335 hrs. 03/25/2017. Dictated by: Wei Burden RRA Interpreted: Sachi Che MD on 03/25/2017 at 14:58 Approved by: Sachi Che MD, PhD on 03/25/2017 at 15:03 Lab Results Interpretation Result Diagram: 03/25/17 1640 03/25/17 1640 Test 03/25/17 16:40 White Blood Count 10.6th/mm3 (3.8-10.1) Red Blood Count 4.76mil/mm3 (3.90-5.20) Hemoglobin 13.3g/dL (12.0-15.6) Hematocrit 41.1% (35.0-46.0) Mean Corpuscular Volume 86.3fL (81-100) Mean Corpuscular Hemoglobin 27.9pg (27.0-35.0) Mean Corpuscular Hemoglobin Concent 32.4% (32.0-37.0) Red Cell Distribution Width 17.1% (12.3-15.4) Platelet Count 215bil/L (150-400) Neutrophils (%) (Auto) 55.8% (40-74) Lymphocytes (%) (Auto) 28.6% (14-46) Monocytes (%) (Auto) 12.0% (4-12) Eosinophils (%) (Auto) 2.8% (0-5) Basophils (%) (Auto) 0.3% (0-3) Prothrombin Time 10.2sec (8.1-12.5) Prothromb Time International Ratio 0.95ratio Sodium Level 136mEq/L (134-144) Potassium Level 4.8mEq/L (3.5-5.2) Chloride Level 99mEq/L (97-108) Carbon Dioxide Level 17mmol/L (18-29) Blood Urea Nitrogen 53mg/dL (6-24) Creatinine 5.21mg/dL (0.57-1.00) Estimat Glomerular Filtration Rate 12mL/min (>59) Glucose Level 102mg/dL (60-99) Calcium Level 8.8mg/dL (8.5-10.1) Magnesium Level 1.9mg/dL (1.6-2.6) Total Bilirubin 0.4mg/dL (0.0-1.2) Aspartate Amino Transf (AST/SGOT) 20U/L (0-50) Alanine Aminotransferase (ALT/SGPT) 27U/L (0-32) Alkaline Phosphatase 121U/L (25-150) Troponin T < 0.010ug/L (0.0-0.011) Total Protein 6.6g/dL (6.4-8.4) Albumin 3.3g/dL (3.4-5.0) Hold Haynes Top Tube Received (Received) ECG Interpretation ECG Interpretation: normal sinus rhythm with a rate of 89 no STT changes Time: 17:20 Interpreted by: ED physician X-Ray Chest Interpretation Chest Xray Interpretation: IMPRESSION: Mild edema pattern within the lung parenchyma, heart size at upper limits of normal, suspect mild acute exacerbation of chronic CHF. Dictated by: Lennox Melgoza M.D. on 03/25/2017 at 16:28 Approved by: Lennox Melgoza M.D. on 03/25/2017 at 16:29 Interpretation / Wet Read by: Interpret - Radiologist Re-Eval/Medical Decision Med Decision/Clinical Course 86-year-old female history of interstitial lung disease admitted one month ago for sepsis due to pneumonia presenting with right lower extremity DVT. Patient had an ultrasound ordered as an outpatient for 3 days of right lower extremity swelling which showed a popliteal occlusive thrombus. Pain or shortness of breath at this time. She was hypotensive on arrival which resolved with IV fluids. Her oxygenation is low 90s which is similar to previous admission. Cannot rule out PE though cannot perform PE study given iodine allergy. Discussed with interventional cardiology Dr. Fofana who will discuss with partners for dilation for possible thrombolysis. She will be admitted for heparin drip and pretreatment for PE study in the morning. She is hemodynamically stable at this time. Source of Hx: Old records Re-Evaluation/Progress : Time of Eval: 17:03 Patient Status: Condition improved Re-Evaluation/Progress Note: Pt rechecked, who is stable. The diagnosis and plan for admission are discussed. The pt understands and agrees with the plan. All questions are addressed at this time. Consultation #1: Referral / Consult Name: Ham Fofana MD Consulted With: Cardiology Call Returned at: 17:06 Senior Electrical Engineer: Agrees with eval, Agrees with plan Note: Consulted with Dr. Fofana, cardiology, regarding pt's case. Dr. Fofana recommends admission and heparinizing the pt. Consultation #2: Referral / Consult Name: Mercedes Valle DO Call Returned at: 17:51 Senior Electrical Engineer: Agrees with eval, Agrees with plan, Accepts admit Note: Spoke with Dr. Valle, hospitalist, regarding pt's case. Dr. Valle agrees with the evaluation and agrees to admit the pt. Counseled Regarding: Diagnosis, Lab results, Need for admission Discharge & Departure Impression: Primary Impression: DVT (deep vein thrombosis) in Additional Impression: Hypotension Hypotension type: unspecified hypotension type Qualified Code: I95.9 - Hypotension, unspecified Disposition: ADMITTED TO HOSPITAL Discharge Condition All VS Reviewed: Yes Condition: Stable Referrals: Martha Lanza (PCP) Crit Care Except Billable Proc Time Spent: 30-74 minutes Services Performed: Patient management by me, Time spent at bedside, Reviewing test results, Reviewing imaging, Discussing patient care, Documentation in record, Other (heparin drip) Scribe Attestation Portions of this note were transcribed by Rafiq Bautista. I, Dr. Shanks personally performed the history, physical exam and medical decision-making; I reviewed and confirmed the accuracy of the information in the transcribed note. copies to: Martha Lanza Ben M MD Mar 25, 2017 16:54 RAFIQ BAUTISTA Mar 25, 2017 17:08
[2017-03-25 17:13] LABS: BASOPHILS % (AUTO) 0.3 % (0-3); EOSINOPHILS % (AUTO) 2.8 % (0-5); Mean Corpuscular Hemoglobin 27.9 pg (27.0-35.0); Mean Corpuscular Volume 86.3 fL (81-100); NEUTROPHILS % (AUTO) 55.8 % (40-74); Platelet Count 215 bil/L (150-400)
[2017-03-25 17:46] LABS: INR 0.95 ratio
[2017-03-25 17:48] LABS: TROPONIN T < 0.010 ug/L (0.0-0.011)
[2017-03-25] MEDS ORDERED: Heparin 5,000 Unit/mL Inj IVPUSH ONE (17:50)
[2017-03-25] MEDS ORDERED: Ondansetron 2 mg/mL 2 mL Inj IVPUSH PRN (18:00)
[2017-03-25] MEDS ORDERED: Alum-Mag Hydrox-Simeth 30 mL Suspension PO PRN (18:00)
[2017-03-25 18:03] LABS: Magnesium 1.9 mg/dL (1.6-2.6)
[2017-03-25] MEDS: Heparin 25K Unit/500mL 0.45 NS 25,000 UNIT in IV Premix 1 EACH IV SCH (18:22)
[2017-03-25 18:48] VITALS: BP 119/47; RESP 17; O2SAT 84
[2017-03-25 19:18] VITALS: BP 96/61; PULSE 102; RESP 16; O2SAT 95
--- NOTE | 2017-03-25 19:21 | PCM.ADCARE ---
Advance Care Planning Note Plan: Purpose of encounter: Goals of care Parties in attendance: Patient, Dr. Valle Diagnosis: DVT Acute renal failure History of substance abuse Diabetes COPD Emphysema Acute interstitial lung disease Decisional capacity: Good Plan: The patient is aware of the current diagnosis and would like to continue to be full code. The patient understands that this means for chest compressions , intubation, pressors, and all measures involved with CPR. CODE STATUS: Full code Time spent with advanced care planning: Greater than 16 minutes Mercedes Valle DO Mar 25, 2017 19:21
[2017-03-25] MEDS ORDERED: 0.9% Sodium Chloride 1,000 ML IV SCH (19:55)
--- NOTE | 2017-03-25 21:07 | DRSVH ---
PROCEDURE: US RENAL SONOGRAM INDICATIONS: 56 year-old female with acute kidney injury. TECHNIQUE: Real-time scanning was performed of the kidneys and bladder, with image documentation. COMPARISON: [facility], CT, CT ABD PELVIS WO CON, 01/17/2016, 20:41. FINDINGS: Kidneys: Kidneys are normal in size. Right kidney measures 11.3 cm long; left kidney measures 9.3 c m long. Right renal cortical thickness is 1.5 cm; left renal cortical thickness is 1.7 cm. Renal co rtical echotexture is normal. No hydronephrosis or nephrolithiasis. No suspicious solid mass lesion s. Bladder: Bladder is incompletely distended at the time of scan. Right and left ureteral jets are not ed with color Doppler interrogation. Miscellaneous: No free pelvic fluid. IMPRESSION: A post-renal cause is not identified for acute renal insufficiency. Dictated by: Mark Hyde M.D. on 03/25/2017 at 21:03 Approved by: Mark Hyde M.D. on 03/25/2017 at 21:05
[2017-03-25] MEDS: HYDROmorphone 0.5 mg/0.5 mL iSecure Syringe IVPUSH PRN (21:20)
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
[2017-03-25] MEDS ORDERED: Glucose 40% Oral Gel 15 Gm Tube PO PRN (22:55)
[2017-03-25] MEDS ORDERED: Fluticasone 0.05% 15 Spray/2 Gm 16 Gm Nasal Spray NASAL PRN (23:05)
[2017-03-25] MEDS ORDERED: Albuterol HFA 60 Puff 8 Gm Inhaler INHALATION PRN (23:05)
[2017-03-25] MEDS ORDERED: Albuterol-Ipratropium 3 mL Inhalation Solution NEB PRN (23:05)
[2017-03-25 23:10] VITALS: BP 96/55; PULSE 104; RESP 16; O2SAT 92
[2017-03-25] MEDS: 0.9% Sodium Chloride 1,000 ML IV SCH (23:18)
[2017-03-25] MEDS: LORazepam 0.5 mg Tablet PO PRN (23:39)
[2017-03-25] MEDS ORDERED: Dextrose 10% 250 ML IV PRN (23:50)
[2017-03-26] VITALS (7 sets, daily range): BP systolic 91–114; BP diastolic 51–69; PULSE 90–102; RESP 16–20; O2SAT 92–97
[2017-03-26] MEDS: HYDROmorphone 0.5 mg/0.5 mL iSecure Syringe IVPUSH PRN ×2 (05:24→11:48)
[2017-03-26 07:17] LABS: Mean Corpuscular Hemoglobin 27.4 pg (27.0-35.0); Mean Corpuscular Volume 87.9 fL (81-100)
--- NOTE | 2017-03-26 07:41 | NUR ---
Cruz/Pain Pt only able to urinate scant amounts after attempting to do so a few times. At first pt denied discomfort but as night progressed pt still unable to void and had increased discomfort. Per SKETCHER, bladder scan 355mL. notified and ordered cruz placement. Pt able to rest comfortably after this, UOP about 800cc via cruz. Pt medicated PRN for right hip/leg pain, would intermittently appear very drowsy but had 9/10 pain w/ any movement. While at rest, pain medication effective as pt able to sleep between care interventions. Addendum: 03/26/17 at 0749 by CHALINO SAUNDERS RN Pt was admitted at shift change, vitals stable, though slightly hypotensive. ordered bolus and continuous fluids. Admission and med rec done prior to arrival to floor.
[2017-03-26] MEDS: Insulin LISPRO 300 Unit/3 mL Inj SUBQ SCH ×4 (08:00→21:16)
[2017-03-26] MEDS: 0.9% Sodium Chloride 1,000 ML IV SCH ×3 (09:00→21:00)
[2017-03-26] MEDS: LORazepam 0.5 mg Tablet PO PRN (09:03)
--- NOTE | 2017-03-26 11:22 | CONS ---
[address] [address] CONSULTATION REPORT PATIENT: JONO RODNEY : 1960 MR#: [id number] ADMIT: 03/25/2017 JOB ID: [id number] DATE OF SERVICE: 03/26/2017 RENAL CONSULTATION: HISTORY: The patient is a 56-year-old white female, who was admitted to [facility] for a deep vein thrombosis and acute kidney injury. Renal consultation is being sought for further evaluation of her renal dysfunction. She has a rather extensive medical history including a number of significant pulmonary issues surrounding a desquamative interstitial pneumonia. She has had residual COPD and has had respiratory failure in the past. She was recently diagnosed with type 2 diabetes, and about a month ago, was started on metformin. On March 02 of earlier this month, her creatinine was 0.7 mg/dL. She states that for the past several weeks she has had flu-like symptoms with diarrhea, abdominal cramps, diffuse myalgias, nasal congestion, decreased oral intake, and decreased urine output over the last several days. She denies any vomiting, cough, wheezing, arthralgias, skin rash, hematuria or difficulty in urination. Other than the metformin, she denies any other new medications. She has not used any NSAIDs, vwqw-tru-cvvfwlq medications or herbal medications. About 3-4 days prior to admission, she states that she began to have some swelling, pain and erythema around her distal right lower extremity. She was being evaluated for a preop physical by her family doctor yesterday for a possible right total hip replacement. During that time, her physician was concerned about her ankle and referred her over to the emergency department. In the emergency department, she was found to have a popliteal occlusive thrombosis. No contrast studies were performed in the emergency department and she has not had any recently. She denies a history of any prior renal problems. There is no prior history of any acute kidney injury, chronic kidney disease, hematuria, proteinuria, recurrent urinary tract infections, renolithiasis, frequent use of nonsteroidal anti-inflammatories, perioral ulcerations, rheumatoid arthritis, lupus, and although she denies a history of hepatitis, I see in the chart that she does have a history of hepatitis C. Otherwise she has a history of a prior stroke and hyperlipidemia. There is no history of any prior myocardial infarction, prior DVT, pulmonary embolus or miscarriage. PAST MEDICAL HISTORY: Is significant for: 1. COPD and chronic respiratory failure for which she uses oxygen at night and p.r.n. 2. There is also a history of an interstitial pneumonia. 3. Recent diagnosis of uov-ayhrzdn-amsmckdld diabetes mellitus. 4. Pulmonary hypertension. 5. Stroke. 6. Systemic hypertension. 7. History of polysubstance abuse, and she is currently on methadone. 8. History of hepatitis C. 9. History of MRSA skin abscess. 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 11. Severe osteoarthritis of the right hip. 12. Carotid arterial stenosis. PAST SURGICAL HISTORY: Is significant for: 1. section. 2. Chest tube placement. 3. Hysterectomy. 4. A wedge biopsy of the right lung. 5. Incision and drainage of a cellulitis. 6. She has also had a history of a hysterectomy. ALLERGIES: She is allergic to EGGS and IODINE. SOCIAL HISTORY: She states that she still uses tobacco "occasionally." There is no history of any alcohol use but she does have a history of polysubstance abuse, and is currently on methadone. FAMILY HISTORY: Remarkable for renal cell carcinoma in her mother and a history of congestive heart failure. MEDICATIONS: At time of admission include aspirin, atorvastatin, fluoxetine, furosemide, gabapentin, Lasix, Glucophage, methadone, mirtazapine, omeprazole, potassium, a number of inhalers, lorazepam, Prazosin and propranolol p.r.n. for anxiety. PHYSICAL EXAMINATION: Revealed a moderately obese 56-year-old white female, who was alert and oriented x3, in no distress at time of my evaluation. Her blood pressure was 91/51, with a heart rate of 93. HEENT examination is remarkable for mild bilateral conjunctival injection. Pupils were dilated and sluggish in their reaction to light. Cornea, conjunctivae, and extraocular muscles were within normal limits. Mucous membranes were somewhat dry. Neck is supple without adenopathy, thyromegaly or jugular venous distention. Lungs are clear to auscultation. Heart was regular and rhythmical with a soft systolic murmur. Abdomen is soft, with diminished bowel sounds. There was no tenderness, rebound, guarding, masses or hepatosplenomegaly. Extremities showed some mild erythema and mild edema and tenderness over the right ankle and distal right lower leg. There was clubbing noted. Her skin turgor was slightly diminished and there was no evidence of any rashes. LABORATORY EXAMINATION: At time of admission, her creatinine had gone from 0.7 a month ago to 5.21. She has been given several liters of fluid and this morning her creatinine has improved to 2.48. Her sodium this morning is 141, potassium 4.2, chloride of 108, bicarbonate 19, BUN and creatinine were 40 and 2.48. Glucose is 118. Calcium was 8.1. Liver function studies were normal and her albumin is 2.9. There is no urinalysis on the chart. Her urine protein creatinine ratio was normal at 0.1. This morning, her white count is 6.1, hemoglobin of 11.1 hematocrit 35.6, red cell indices, platelet count and differential were normal. Reviewing her renal ultrasound, there was no evidence of any obstruction, masses or renal asymmetry. IMPRESSION: 1. Acute dehydration secondary to diarrhea most likely from metformin. 2. Acute kidney injury secondary to #1. 3. Mixed anion gap and non-anion gap metabolic acidosis secondary to #1. 4. Hypertension with hypertensive heart disease and hypertensive nephrosclerosis. RECOMMENDATION: I would like to continue on her current medical therapy with aggressive IV hydration. Obviously since she developed diarrhea from the metformin, I would not recommend giving her any more of this and I would also avoid any further diuretics or IAIN inhibitors for now until she stabilizes. Once again, I would like to thank you for allowing me to participate in the care of this most pleasant and unfortunate patient. I will be following her closely with you.
[2017-03-26 11:33] LABS: APPEARANCE,URINE CLEAR (CLEAR,HAZY); COLOR,URINE STRAW (YELLOW); OCCULT BLOOD,URINE NEGATIVE (NEGATIVE); PH,URINE 5.5 (5.0-8.0); UROBILINOGEN,URINE NORMAL (NORMAL)
[2017-03-26] MEDS ORDERED: Alum-Mag Hydrox-Simeth 30 mL Suspension PO PRN (11:55)
[2017-03-26] MEDS ORDERED: Ondansetron 2 mg/mL 2 mL Inj IVPUSH PRN (11:55)
[2017-03-26] MEDS: Heparin 25K Unit/500mL 0.45 NS 25,000 UNIT in IV Premix 1 EACH IV SCH (15:40)
--- NOTE | 2017-03-26 17:14 | NUR ---
Pain Pt c/o 10/10 right hip pain for most of the day. Unrelieved by Methadone, Dilaudid, and Tylenol. Pt falling asleep during conversations and sleeping for most of the day but when awake c/o pain and not being able to move around. Warm packs offered with no success. Pt states she lives with this pain and 10/10 is chronic and somewhat tolerable. When Pt feeling anxious Ativan BID given.
--- NOTE | 2017-03-26 19:10 | PCM.PNMED ---
Subjective Date of Service Mar 26, 2017 Subjective Assessment: Patient fatigue laying in bed on exam. Patient continues to have pain in the right lower leg. No other complaints at this time. Events Overnight: No acute events overnight. ROS: Denies fever/chills, nausea/vomiting, headache, weakness, abdominal pain, chest pain, shortness of breath, increased swelling in hands or feet. Exam Vital Signs Vital Sign - Last Date Time Temp Pulse Resp B/P Pulse Ox O2 Delivery O2 Flow Rate FiO2 03/26/17 12:25 36.8 95 20 106/61 95 Nasal Cannula 2.00 Intake and Output 03/25/17 03/25/17 03/26/17 Cumulative From/Thru 15:00 23:00 07:00 03/25/17 15:55 - 03/26/17 06:12 Intake Total 1000 ml 2619 ml 3619 ml Output Total 820 ml 820 ml Balance 1000 ml 1799 ml 2799 ml Intake Oral 714 ml 714 ml IV Total 1000 ml 1905 ml 2905 ml Output Urine Total 820 ml 820 ml Exam General: No acute distress, well-developed, well-nourished HEENT: Normocephalic, atraumatic. External ears without defect. Pupils equal, round, and reactive to light and accommodation. Anicteric sclerae, moist conjunctivae. Cardiovascular: Regular rate and rhythm with no murmurs, rubs, or gallops appreciated Pulmonary: Coarse breath sounds throughout with bilateral crackles; and inspiratory/expiratory wheezing Normal respiratory effort with no use of accessory muscles. Abdomen: Bowel tones present. Soft, obese. nontender, nondistended. Extremities: No clubbing, cyanosis, mild erythema of the right knee. mild edema of the right lower extremity compared to the left. Skin: Normal temperature, turgor, and texture; no rash, ulcers, or subcutaneous nodules appreciated. Neurological: Cranial nerves grossly intact. Reflexes, coordination, and sensory function within normal limits. Normal muscle strength, tone, and bulk. Psychiatric: Normal mood and affect. Alert and oriented to person, place, and time IVs and Medications IV Fluids 250 mL dextrose/H2O Medications Reviewed: Medications were reviewed in detail Medications High-risk medications include: Methadone Lab and Diagnostics Result Diagram: 03/26/17 0651 03/26/17 0651 X-Rays, CTs and MRIs Chest x-ray Mild edema pattern within the lung parenchyma, heart size at upper limits of normal, suspect mild acute exacerbation of chronic CHF. Dictated by: Lennox Melgoza M.D. on 03/25/2017 at 16:28 Renal ultrasound IMPRESSION: A post-renal cause is not identified for acute renal insufficiency. Dictated by: Mark Hyde M.D. on 03/25/2017 at 21:03 US Veinous Leg Duplex Unilateral IMPRESSION: Bifid popliteal vein present with occlusive venous thrombus within one of the vessels. Additional Diagnostics US RENAL SONOGRAM IMPRESSION: A post-renal cause is not identified for acute renal insufficiency. Dictated by: Mark Hdye M.D. on 03/25/2017 at 21:03 Approved by: Mark Hyde M.D. on 03/25/2017 at 21:05 Assessment & Plan 56-year-old female with severe respiratory compromise due to smoking and drug use presents with an occlusive right DVT and severe acute kidney injury of unknown etiology. Occlusive right DVT; present on admission; ongoing -3 days of increasing right lower extremity edema and pain with positive ultrasound for occlusive DVT -Dr. Fofana and interventional radiology will consider EKOS on Tuesday -Heparin drip -Monitor for signs of respiratory compromise -She will need warfarin, Eliquis for Xarelto on discharge Severe acute kidney injury; present on admission; ongoing -Somewhat of a mystery why the patient's creatinine has skyrocketed; could be prerenal or considering renal vein thrombosis -Renal ultrasound demonstrated no hydronephrosis or obstruction -Ordered Doppler of the renal artery and vein, pending -Patient reports recent illness, this could possibly represent a postinfectious GN -protein/creatinine 0.11, urine protein 19 urine random creatinine 168 -Nephrology consult; discussed this with Dr. 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 Francisco who has been seen multiple times due to her DIP. Patient continues to smoke although she has cut back recently -With her lung function and severely compromised pulmonary function we will watch for any signs of respiratory distress as a PE or likely cause severe symptoms -Continue home medications Non-insulin dependent diabetes type II; present on admission; ongoing -Hold metformin -Continue low-dose correctional; add basal tomorrow. Depression/PTSD; present on admission; ongoing -Continue fluoxetine, lorazepam, prazosin, propanolol, hydroxyzine Hypertension -Continue lisinopril, hold furosemide CAD -Continue aspirin and atorvastatin Chronic pain -Continue methadone and gabapentin History of polysubstance abuse -Previously used heroin, marijuana, cocaine, and methamphetamines -Also currently using tobacco. She has been educated numerous times Disposition: Patient likely to remain in [facility] for further monitoring, anticipate discharge 03/28 Full code Resuscitation Status: CPR: Attempt Resuscitation Attending Statement The patient was seen and examined together with Dr. Levi on 03/27/17 and I agree with the history, exam and plan as outlined in the note above. David Levi DO Mar 26, 2017 19:10 Mercedes Valle DO Mar 27, 2017 17:31
[2017-03-27] VITALS (11 sets, daily range): BP systolic 112–161; BP diastolic 58–80; PULSE 86–110; RESP 18–20; O2SAT 71–94
[2017-03-27] MEDS: LORazepam 0.5 mg Tablet PO PRN ×2 (00:52→09:44)
[2017-03-27] MEDS: 0.9% Sodium Chloride 1,000 ML IV SCH ×3 (01:34→16:44)
[2017-03-27 03:21] LABS: Mean Corpuscular Hemoglobin 27.2 pg (27.0-35.0)
--- NOTE | 2017-03-27 05:49 | NUR ---
Anxiety Pt states increasing anxiety. Pt given Ativan 0.5mg PO tablet with good effect. Pt slept off-and-on throughout the night for periods of 2-3 hours. Each time patient woke she questioned whether she was due for any further pain medications. Pt states her pain is only somewhat controlled.
[2017-03-27] MEDS: Insulin LISPRO 300 Unit/3 mL Inj SUBQ SCH ×4 (07:57→21:32)
[2017-03-27] MEDS: Heparin 25K Unit/500mL 0.45 NS 25,000 UNIT in IV Premix 1 EACH IV SCH ×2 (09:01→12:03)
[2017-03-27] MEDS: HYDROmorphone 0.5 mg/0.5 mL iSecure Syringe IVPUSH PRN ×2 (09:08→18:20)
[2017-03-27] MEDS: oxyCODONE-Acetamin 5-325 mg Tablet PO PRN ×4 (10:54→21:21)
--- NOTE | 2017-03-27 11:35 | PCM.PNNEPH ---
Subjective Date of Service Mar 27, 2017 Subjective Patient's renal function continues to significantly improve. She has had no further diarrhea and is slowly tolerating her wound. Exam Vital Signs Vital Sign - Last Date Time Temp Pulse Resp B/P Pulse Ox O2 Delivery O2 Flow Rate FiO2 03/27/17 08:47 101 03/27/17 07:51 37.6 18 138/77 93 Nasal Cannula 2.00 Intake and Output 03/26/17 03/26/17 03/27/17 Cumulative From/Thru 15:00 23:00 07:00 03/25/17 15:55 - 03/27/17 05:37 Intake Total 2706 ml 1785 ml 8110 ml Output Total 1650 ml 1200 ml 3670 ml Balance 1056 ml 585 ml 4440 ml Intake Oral 880 ml 200 ml 1794 ml IV Total 1826 ml 1585 ml 6316 ml Output Urine Total 1650 ml 1200 ml 3670 ml # Bowel Movements 0 0 Exam Neck is supple without adenopathy, thyromegaly, or jugular venous distention. Lungs are clear to auscultation. Heart was regular and rhythmical with a soft systolic murmur. Abdomen is soft any tenderness, rebound, guarding, masses, or hepatosplenomegaly. Extremities do not show any evidence of any clubbing cyanosis or edema. Skin turgor screwed and/or no evidence of any rashes. Lab and Diagnostics Result Diagram: 03/27/17 0310 03/27/17 0310 X-Rays, CTs and MRIs Chest x-ray Mild edema pattern within the lung parenchyma, heart size at upper limits of normal, suspect mild acute exacerbation of chronic CHF. Dictated by: Lennox Melgoza M.D. on 03/25/2017 at 16:28 Renal ultrasound IMPRESSION: A post-renal cause is not identified for acute renal insufficiency. Dictated by: Mark Hyde M.D. on 03/25/2017 at 21:03 US Veinous Leg Duplex Unilateral IMPRESSION: Bifid popliteal vein present with occlusive venous thrombus within one of the vessels. Additional Diagnostics US RENAL SONOGRAM IMPRESSION: A post-renal cause is not identified for acute renal insufficiency. Dictated by: Mark Hyde M.D. on 03/25/2017 at 21:03 Approved by: Mark Hyde M.D. on 03/25/2017 at 21:05 Plan Impression Impression #1 dehydration secondary to diarrhea from metformin which is resolved #2 acute kidney injury secondary to #1 which is also resolved #3 hypertension with hypertensive heart disease intensive nephrosclerosis number for hepatitis C by history #5 metabolic acidosis which is also resolving. Recommendations #1 continue her on her current therapy and I would also like to check a GLOBULIN level in light of her history from hepatitis C. Aditya Zuniga DO Mar 27, 2017 11:35
--- NOTE | 2017-03-27 14:02 | PCM.PNMED ---
Subjective Date of Service Mar 27, 2017 Subjective Patient continues to complain of severe right hip pain and leg pain secondary to her degenerative right hip and the DVT. Denies SOB, hemoptysis, or respiratory distress. No significant overnight events Comprehensive ROS negative except as listed above Exam Vital Signs Vital Sign - Last Date Time Temp Pulse Resp B/P Pulse Ox O2 Delivery O2 Flow Rate FiO2 03/27/17 11:44 37.8 101 18 116/72 94 Nasal Cannula 2.00 Intake and Output 03/26/17 03/26/17 03/27/17 Cumulative From/Thru 15:00 23:00 07:00 03/25/17 15:55 - 03/27/17 05:37 Intake Total 2706 ml 1785 ml 8110 ml Output Total 1650 ml 1200 ml 3670 ml Balance 1056 ml 585 ml 4440 ml Intake Oral 880 ml 200 ml 1794 ml IV Total 1826 ml 1585 ml 6316 ml Output Urine Total 1650 ml 1200 ml 3670 ml # Bowel Movements 0 0 Exam Gen: A/O x3 somewhat unkempt woman in mild acute distress secondary to leg pain Neck: Supple, non tender, no thyromegaly HEENT: PERRL, EOMI, no scleral icterus CV: RRR, 2/6 systolic ejection murmur, no rubs or gallops Resp: Lungs CTA BL, no wheezing rales or rhonchi Skin: Many excoriated wounds diffuse about face and legs Abd: No rebound guarding tenderness or masses Extr: Right leg appreciably swollen more than left, tender to palpation in popliteal fossa, no cyanosis or clubbing Neuro: CN 2-12 grossly intact, no focal neurologic deficit Psych: Pre-occupied with pain, disheartened by news that this clot will delay her surgery IVs and Medications IV Fluids NS @ 125 hr 500 ml delivered with IV meds Medications Reviewed: Medications were reviewed in detail Lab and Diagnostics Item Value Date Time Red Blood Count 4.08 mil/mm3 03/27/17 0310 Mean Corpuscular Hemoglobin 27.2 pg 03/27/17 0310 Mean Corpuscular Volume 88.0 fL 03/27/17 0310 Mean Corpuscular Hemoglobin Concent 30.9 % L 03/27/17 0310 Red Cell Distribution Width 17.2 % H 03/27/17 0310 Creatinine 1.10 mg/dL H 03/27/17309 Estimat Glomerular Filtration Rate 73 mL/min 03/27/17309 Calcium Level 8.3 mg/dL L 03/27/17309 Total Bilirubin 0.2 mg/dL 03/27/17309 Aspartate Amino Transf (AST/SGOT) 15 U/L 03/27/17309 Alanine Aminotransferase (ALT/SGPT) 19 U/L 03/27/17309 Alkaline Phosphatase 103 U/L 03/27/17309 Total Protein 5.3 g/dL L 03/27/17309 Albumin 2.7 g/dL L 03/27/17309 Result Diagram: 03/27/1730903/27/17309 Microbiology strep pneumo urine antigen negative X-Rays, CTs and MRIs Chest x-ray Mild edema pattern within the lung parenchyma, heart size at upper limits of normal, suspect mild acute exacerbation of chronic CHF. Dictated by: Lennox Melgoza M.D. on 03/25/2017 at 16:28 Renal ultrasound IMPRESSION: A post-renal cause is not identified for acute renal insufficiency. Dictated by: Mark Hyde M.D. on 03/25/2017 at 21:03 US Veinous Leg Duplex Unilateral IMPRESSION: Bifid popliteal vein present with occlusive venous thrombus within one of the vessels. Additional Diagnostics US RENAL SONOGRAM IMPRESSION: A post-renal cause is not identified for acute renal insufficiency. Dictated by: Mark Hyde M.D. on 03/25/2017 at 21:03 Approved by: Mark Hyde M.D. on 03/25/2017 at 21:05 . Assessment & Plan 56-year-old female with severe respiratory compromise due to smoking and drug use presents with an occlusive right DVT and severe acute kidney injury of unknown etiology. Occlusive right DVT; present on admission; ongoing -3 days of increasing right lower extremity edema and pain with positive ultrasound for occlusive DVT -Dr. Fofana and interventional radiology will consider EKOS on Tuesday -Heparin drip -Monitor for signs of respiratory compromise -She will need warfarin, Eliquis for Xarelto on discharge Severe acute kidney injury; present on admission; ongoing -Somewhat of a mystery why the patient's creatinine has skyrocketed; could be prerenal or considering renal vein thrombosis -Renal ultrasound demonstrated no hydronephrosis or obstruction -Ordered Doppler of the renal artery and vein, pending -Patient reports recent illness, this could possibly represent a postinfectious GN -protein/creatinine 0.11, urine protein 19 urine random creatinine 168 -Nephrology consult; discussed this with Dr. 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 Francisco who has been seen multiple times due to her DIP. Patient continues to smoke although she has cut back recently -With her lung function and severely compromised pulmonary function we will watch for any signs of respiratory distress as a PE or likely cause severe symptoms -Continue home medications Non-insulin dependent diabetes type II; present on admission; ongoing -Hold metformin -Continue low-dose correctional Depression/PTSD; present on admission; ongoing -Continue fluoxetine, lorazepam, prazosin, propanolol, hydroxyzine Hypertension -Continue lisinopril, hold furosemide CAD -Continue aspirin and atorvastatin Chronic pain -Continue methadone and gabapentin History of polysubstance abuse -Previously used heroin, marijuana, cocaine, and methamphetamines Nicotine dependence -Currently using tobacco. She has been educated numerous times -Nicotine patch prn Disposition: Discharge date will depend upon whether cardiology would like to pursue EKOS, likely 1-3 days Pain Evaluation: Adequate Pain Control GI Prophylaxis: Not indicated VTE Prophylaxis: Other (Heparin drip) Resuscitation Status: CPR: Attempt Resuscitation Attending Statement The patient was seen and examined together with Dr. Dominguez on 03/27/17 and I have added additional information to the note above. Edin Dominguez DO Mar 27, 2017 14:02 Mercedes Valle DO Mar 27, 2017 16:50
--- NOTE | 2017-03-27 18:13 | NUR ---
pain management patient has been c/o pain in right hip radiating to low back and leg throughout the day. tried several medications, IV dilaudid, PO percocet, Ativan, frequent position changes, and heating pad with minimal relief. patient has been able to sleep on/off throughout the day. Dr Valle is aware. continue to monitor.
[2017-03-27] MEDS: Heparin 5,000 Unit/mL Inj IVPUSH PRN (22:45)
[2017-03-28] VITALS (9 sets, daily range): BP systolic 129–150; BP diastolic 61–86; PULSE 99–112; RESP 16–20; O2SAT 87–93
[2017-03-28 03:29] LABS: BASOPHILS % (AUTO) 0.3 % (0-3); EOSINOPHILS % (AUTO) 1.8 % (0-5); MONOCYTES % (AUTO) 8.8 % (4-12); Mean Corpuscular Hemoglobin 27.8 pg (27.0-35.0); Mean Corpuscular Volume 86.8 fL (81-100); NEUTROPHILS % (AUTO) 67.1 % (40-74); Platelet Count 187 bil/L (150-400)
[2017-03-28 03:55] LABS: INR 1.06 ratio
[2017-03-28 04:26] LABS: Phosphorus 2.9 mg/dL (2.5-4.9)
[2017-03-28] MEDS ORDERED: Magnesium Sulf 2 Gm/50mL Water 2 GM in IV Premix 1 EACH IV ONE (05:50)
[2017-03-28] MEDS: HYDROmorphone 0.5 mg/0.5 mL iSecure Syringe IVPUSH PRN ×3 (06:35→19:41)
[2017-03-28] MEDS: Insulin LISPRO 300 Unit/3 mL Inj SUBQ SCH ×4 (07:45→22:00)
--- NOTE | 2017-03-28 07:51 | NUR ---
Lab/Rest/Fever/HTN Mag rider hung this morning after notifying MD of critical level of 1.0, recheck lab also ordered. Day RN aware. Pt appeared to sleep well overnight, was encouraged to reposition to side so as not to be on sacrum for so long. MD notified of fever and HTN, NS fluids DC'd, pt afebrile aftert Tylenol, no further orders.
--- NOTE | 2017-03-28 07:53 | NUR ---
O2 Per RT pt sats 71 on RA, pt encouraged to keep NC on. Denies any SOB, dislikes neb treatments. O2 turned up to 4L to get sats back up when pt took NC off, later titrated back down to 2.5L.
[2017-03-28] MEDS: Heparin 25K Unit/500mL 0.45 NS 25,000 UNIT in IV Premix 1 EACH IV SCH (09:01)
[2017-03-28] MEDS: oxyCODONE-Acetamin 5-325 mg Tablet PO PRN ×4 (09:06→18:36)
[2017-03-28] MEDS: Heparin 5,000 Unit/mL Inj IVPUSH PRN (11:00)
--- NOTE | 2017-03-28 11:01 | PCM.PNNEPH ---
Subjective Date of Service Mar 28, 2017 Subjective Patient's renal function continues to improve. She is back to her baseline creatinine of 0.73. She is tolerating her diet and denies any nausea, vomiting , ongoing diarrhea, chest pain or breathing difficulties. Exam Vital Signs Vital Sign - Last Date Time Temp Pulse Resp B/P Pulse Ox O2 Delivery O2 Flow Rate FiO2 03/28/17 09:58 101 03/28/17 07:40 37.1 144/73 91 Nasal Cannula 3.00 03/28/17 03:42 20 Intake and Output 03/27/17 03/27/17 03/28/17 Cumulative From/Thru 15:00 23:00 07:00 03/25/17 15:55 - 03/28/17 06:26 Intake Total 2348 ml 1597 ml 55897 ml Output Total 2800 ml 1800 ml 8270 ml Balance -452 ml -203 ml 3785 ml Intake Oral 1040 ml 600 ml 3434 ml IV Total 1308 ml 997 ml 8621 ml Output Urine Total 2800 ml 1800 ml 8270 ml # Bowel Movements 0 Exam neck is supple without adenopathy, thyromegaly, or jugular venous distention. Lungs are clear to auscultation. Heart was regular with a soft systolic murmur. Abdomen soft without any tenderness rebound guarding masses or hepatosplenomegaly. Extremities without any evidence of any clubbing cyanosis or edema. Skin turgor is good. Lab and Diagnostics Result Diagram: 03/28/17 0320 03/28/17 0320 Microbiology strep pneumo urine antigen negative X-Rays, CTs and MRIs Chest x-ray Mild edema pattern within the lung parenchyma, heart size at upper limits of normal, suspect mild acute exacerbation of chronic CHF. Dictated by: Lennox Melgoza M.D. on 03/25/2017 at 16:28 Renal ultrasound IMPRESSION: A post-renal cause is not identified for acute renal insufficiency. Dictated by: Mark Hyde M.D. on 03/25/2017 at 21:03 US Veinous Leg Duplex Unilateral IMPRESSION: Bifid popliteal vein present with occlusive venous thrombus within one of the vessels. Additional Diagnostics US RENAL SONOGRAM IMPRESSION: A post-renal cause is not identified for acute renal insufficiency. Dictated by: Mark Hyde M.D. on 03/25/2017 at 21:03 Approved by: Mark Hyde M.D. on 03/25/2017 at 21:05 . Plan Impression Impression #1 severe dehydration from diarrhea as a side effect of metformin No. 2 acute kidney injury secondary to #1 which is resolved #3 metabolic acidosis which is resolved number for hepatitis C #5 hypertension with hypertensive heart disease and hypertensive nephrosclerosis. Recommendations #1 at this point as her renal function has returned to baseline we will sign off at this stage of her hospitalization. Should do any T any problems or any questions arise please do not hesitate to contact us. Aditya Zuniga DO Mar 28, 2017 11:01
[2017-03-28] MEDS ORDERED: Magnesium Sulf 4 Gm/100 mL H2O 4 GM in IV Premix 1 EACH IV ONE (11:15)
--- NOTE | 2017-03-28 12:35 | NUR ---
faxed H&P to pt's CM at [facility] Wanda Guevara.
--- NOTE | 2017-03-28 13:35 | PCM.DC.MED ---
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 Rhodes Nephrology: Dr. Zuniga Procedures XRay, CTs & MRIs Chest x-ray Mild edema pattern within the lung parenchyma, heart size at upper limits of normal, suspect mild acute exacerbation of chronic CHF. Dictated by: Lennox Melgoza M.D. on 03/25/2017 at 16:28 Renal ultrasound IMPRESSION: A post-renal cause is not identified for acute renal insufficiency. Dictated by: Mark Hyde M.D. on 03/25/2017 at 21:03 US Veinous Leg Duplex Unilateral IMPRESSION: Bifid popliteal vein present with occlusive venous thrombus within one of the vessels. Other Diagnostics US RENAL SONOGRAM IMPRESSION: A post-renal cause is not identified for acute renal insufficiency. Dictated by: Mark Hyde M.D. on 03/25/2017 at 21:03 Approved by: Mark Hyde M.D. on 03/25/2017 at 21:05 . Brief History 56-year-old female with a history of desquamative interstitial pneumonia, COPD on home O2, pulmonary hypertension, type II diabetes, and severe osteoarthritis of the right hip presents to the emergency department after being assessed for surgery of her right hip. Patient was undergoing a pre-op evaluation for a JEAN-CLAUDE and it was noted that she had a swollen right erythematous lower extremity that she states started 3 days ago and has been increasing in pain and severity. An ultrasound of the RLE was done and it was found that she had an occlusive DVT. The patient describes that 3 days ago she had myalgias, general malaise, and diarrhea. This stopped yesterday. Patient is nonambulatory due to her hip and was not on anticoagulation for long-term immobility. Patient denies any acute change in her breathing although she does have a significant history of DIP with ongoing smoking and past history of methamphetamine use. She was last intubated in October of this year. Patient does have a history of prior PE/DVT and CVA in 2014. Presentation to the emergency department, the patient had a venous ultrasound in the office which shows a bifid popliteal vein with occlusive thrombus. The case was discussed with Dr. Fofana of interventional cardiology who will discuss with his partners on possible thrombolysis tomorrow. Of most significance the patient has a creatinine of 5.21 and she has no history of chronic kidney disease. Hospital Course 56-year-old female with severe respiratory compromise due to smoking and drug use presents with an occlusive right DVT and severe acute kidney injury of unknown etiology. Occlusive right DVT; present on admission; ongoing -3 days of increasing right lower extremity edema and pain with positive ultrasound for occlusive DVT -Dr. Fofana and interventional radiology will consider EKOS on Tuesday -Heparin drip -Monitor for signs of respiratory compromise -She will need warfarin, Eliquis for Xarelto on discharge Severe acute kidney injury; present on admission; ongoing -Somewhat of a mystery why the patient's creatinine has skyrocketed; could be prerenal or considering renal vein thrombosis -Renal ultrasound demonstrated no hydronephrosis or obstruction -Ordered Doppler of the renal artery and vein, pending -Patient reports recent illness, this could possibly represent a postinfectious GN -protein/creatinine 0.11, urine protein 19 urine random creatinine 168 -Nephrology consult; discussed this with Dr. 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 Francisco who has been seen multiple times due to her DIP. Patient continues to smoke although she has cut back recently -With her lung function and severely compromised pulmonary function we will watch for any signs of respiratory distress as a PE or likely cause severe symptoms -Continue home medications Non-insulin dependent diabetes type II; present on admission; ongoing -Hold metformin -Continue low-dose correctional Depression/PTSD; present on admission; ongoing -Continue fluoxetine, lorazepam, prazosin, propanolol, hydroxyzine Hypertension -Continue lisinopril, hold furosemide CAD -Continue aspirin and atorvastatin Chronic pain -Continue methadone and gabapentin History of polysubstance abuse -Previously used heroin, marijuana, cocaine, and methamphetamines Nicotine dependence -Currently using tobacco. She has been educated numerous times -Nicotine patch prn Disposition: Discharge date will depend upon whether cardiology would like to pursue EKOS, likely 1-3 days Exam Vital Signs (Last) Date Time Temp Pulse Resp B/P Pulse Ox O2 Delivery O2 Flow Rate FiO2 03/28/17 12:05 110 18 93 Nasal Cannula 3.50 03/28/17 07:40 37.1 144/73 Exam General: No acute distress, well-developed, well-nourished HEENT: Normocephalic, atraumatic. External ears without defect. Pupils equal, round, and reactive to light and accommodation. Anicteric sclerae, moist conjunctivae. Cardiovascular: Regular rate and rhythm grade 2/6 systolic murmur, rubs, or gallops appreciated Pulmonary: Coarse breath sounds throughout with bilateral crackles; and inspiratory/expiratory wheezing Normal respiratory effort with no use of accessory muscles. Abdomen: Bowel tones present. Soft, obese. nontender, nondistended. Extremities: No clubbing, cyanosis, mild erythema of the right knee. mild edema of the right lower extremity compared to the left. Skin: Normal temperature, turgor, and texture; no rash, ulcers, or subcutaneous nodules appreciated. Neurological: Cranial nerves grossly intact. Reflexes, coordination, and sensory function within normal limits. Normal muscle strength, tone, and bulk. Psychiatric: Normal mood and affect. Alert and oriented to person, place, and time Test 03/25/17 06:51 03/25/17 16:40 03/26/17 00:55 03/26/17 06:51 Troponin T < 0.010ug/L (0.0-0.011) Hold Haynes Top Tube Received (Received) Urine Random Creatinine 168mg/dL (15-278) Urine Random Total Protein 19mg/dL (0-15) Urine Protein/Creatinine Ratio 0.11 (0-200) Procalcitonin 0.17ng/mL (0.00-0.08) Test 03/26/17 10:00 03/27/17 03:10 03/28/17 03:20 03/28/17 09:40 Urine Color Straw (YELLOW) Urine Appearance Clear (CLEAR,HAZY) Urine pH 5.5 (5.0-8.0) Urine Specific Wagner 1.010 (1.003-1.035) Urine Protein Negativemg/dL (NEG,TRACE) Urine Glucose (UA) Negativemg/dL (NEGATIVE) Urine Ketones Negativemg/dL (NEGATIVE) Urine Occult Blood Negative (NEGATIVE) Urine Nitrite Negative (NEGATIVE) Urine Bilirubin Negative (NEGATIVE) Urine Urobilinogen Normalmg/dL (NORMAL) Urine Leukocyte Esterase Negative (NEGATIVE) Urine RBC 0-2/hpf (0-2) Urine WBC 0-5/hpf (0-5) Urine Epithelial Cells Few/hpf (NONE-MOD) Urine Crystals None seen (NONE SEEN) Urine Bacteria None/hpf (NONE-FEW) Urine Hyaline Casts None/lpf (NONE) Urine Granular Casts None seen (NONE SEEN) Urine Waxy Casts None seen (NONE SEEN) Urine Red Blood Cell Casts None seen (NONE SEEN) Urine White Blood Cell Casts None seen (NONE SEEN) Urine Mucus None seen (None Seen) Urine Trichomonas None seen (NONE SEEN) Urine Yeast None (NONE SEEN) Urinalysis Comment None Urine Culture Reflexed Not indicated White Blood Count 10.8th/mm3 (3.8-10.1) Red Blood Count 4.18mil/mm3 (3.90-5.20) Hemoglobin 11.6g/dL (12.0-15.6) Hematocrit 36.3% (35.0-46.0) Mean Corpuscular Volume 86.8fL (81-100) Mean Corpuscular Hemoglobin 27.8pg (27.0-35.0) Mean Corpuscular Hemoglobin Concent 32.0% (32.0-37.0) Red Cell Distribution Width 16.5% (12.3-15.4) Platelet Count 187bil/L (150-400) Neutrophils (%) (Auto) 67.1% (40-74) Lymphocytes (%) (Auto) 21.0% (14-46) Monocytes (%) (Auto) 8.8% (4-12) Eosinophils (%) (Auto) 1.8% (0-5) Basophils (%) (Auto) 0.3% (0-3) Prothrombin Time 11.4sec (8.1-12.5) Prothromb Time International Ratio 1.06ratio Sodium Level 143mEq/L (134-144) Potassium Level 4.7mEq/L (3.5-5.2) Chloride Level 109mEq/L (97-108) Carbon Dioxide Level 22mmol/L (18-29) Blood Urea Nitrogen 10mg/dL (6-24) Creatinine 0.73mg/dL (0.57-1.00) Estimat Glomerular Filtration Rate 118mL/min (>59) Glucose Level 135mg/dL (60-99) Calcium Level 8.6mg/dL (8.5-10.1) Phosphorus Level 2.9mg/dL (2.5-4.9) Total Bilirubin 0.3mg/dL (0.0-1.2) Aspartate Amino Transf (AST/SGOT) 19U/L (0-50) Alanine Aminotransferase (ALT/SGPT) 17U/L (0-32) Alkaline Phosphatase 112U/L (25-150) Total Protein 5.6g/dL (6.4-8.4) Albumin 2.7g/dL (3.4-5.0) Activated Partial Thromboplast Time 49.9sec (22.8-33.0) Magnesium Level 1.1mg/dL (1.6-2.6) Microbiology Results strep pneumo urine antigen negative Discharge Medications Discharge Medications Aspirin Chew (Aspirin Chew) 81 Mg Tablet 81 MG PO DAILY Prescribed by: DANIEL PINA DO Atorvastatin Calcium (Atorvastatin Calcium) 20 Mg Tablet 20 MG PO HS Prescribed by: DANIEL PINA DO Fluoxetine (Fluoxetine) 20 Mg Capsule 40 MG PO QAM (Reported) Furosemide (Furosemide) 40 Mg Tablet 40 MG PO QAM (Reported) Gabapentin (Gabapentin) 300 Mg Capsule 600 MG PO BID (Reported) Gabapentin (Gabapentin) 300 Mg Capsule 300 MG PO MIDDAY (Reported) Lisinopril (Lisinopril) 30 Mg Tablet 30 MG PO DAILY Prescribed by: ZI MARION DO Metformin (Glucophage) 500 Mg Tablet 1,000 MG PO BIDWM Prescribed by: ZI MARION DO Methadone (Methadone) 10 Mg Tab 70 MG PO DAILY (Reported) Mirtazapine (Mirtazapine) 15 Mg Tablet 15 MG PO HS Prescribed by: FOUZIA SKAGGS MD Omeprazole (Omeprazole) 20 Mg Capsule.dr 20 MG PO QAM (Reported) Fty770/Iron Fumarate/FA/Dss ( 19 Tablet) 1 Each Tablet 1 EACH PO QAM ( Reported) Potassium Chloride ER (Potassium Chloride ER) 10 Meq Tablet 10 MEQ PO DAILYWM ( Reported) TAKE WITH FOOD As needed Albuterol Neb Soln (Albuterol Neb Soln) 1.25 Mg/3 Ml Vial.neb 1.25 MG NEB Q2H PRN PRN For Shortness of Breath Prescribed by: FOUZIA SKAGGS MD Albuterol Sulfate (Ventolin HFA Inhaler) 200 Puff/18 Gm Inhaler 1 PUFF INH Q4 PRN PRN For Wheezing Prescribed by: SWATHI BALDERAS DO Fluticasone Propionate (Fluticasone Propionate Nasal) 16 Gm Enola.susp 2 SPRAYS NASAL DAILY PRN PRN For Congestion (Reported) Hydroxyzine Pamoate (HydrOXYzine Pamoate) 50 Mg Capsule 50 MG PO QID PRN PRN For Anxiety (Reported) Ipratropium/Albuterol Sulfate (Iprat-Albut 0.5-3(2.5) mg/3 mL Inhalant Soln) 3 Ml Ampul.neb 3 ML NEB Q4H PRN PRN For Wheezing Prescribed by: FOUZIA SKAGGS MD Lorazepam (Lorazepam) 0.5 Mg Tablet 0.5 MG PO BID PRN PRN For Anxiety (Reported ) Polyethylene Glycol 3350 (Polyethylene Glycol 3350) 17 Gm Powd.pack 17 GM PO DAILY PRN PRN For Constipation (Reported) Prazosin (Prazosin) 2 Mg Capsule 4 MG PO HS PRN PRN nightmares "NIGHTMARES" Prescribed by: FOUZIA SKAGGS MD Propranolol HCl (Propranolol HCl) 10 Mg Tablet 10 MG PO TID PRN PRN For Anxiety (Reported) Followup Plan Disposition: Home Follow-up plan Please follow-up with your primary care physician, as well as your orthopedist to determine your schedule for surgery, which may need to be pushed back due to these unfortunate complications. Discharge Diet: No restrictions Discharge Activity: No restrictions Patient Instructions You came into the hospital because your right leg has been swollen and red for the last 3 days. Ultrasound on this leg revealed that there was a deep vein thrombosis. We discussed with cardiology the possibility of removing this thrombosis, however, considering its location medical management is advised. You have been given IV heparin while in the hospital for the last 3 days and you were started on a blood thinner prior to being discharged from the hospital. Your deep vein thrombosis should resolve on its own without further complications. However in the event that you become suddenly short of breath, we would like you to return to the emergency department at that time. Follow-up Provider: Martha Lanza Follow-up with PCP in: 1 week Time spent Greater than 35 minutes spent on documentation and coordination of discharge. copies to: Martha Lanza Adam J DO Mar 28, 2017 13:34
--- NOTE | 2017-03-28 13:41 | NUR ---
Social Work Note: Initial Assessment Data& Assessment: EMR reviewed. Pt was discussed in multidisciplinary rounds today, per MD pt is not medically ready for discharge at this time. MD did not identify any concern with pt capacity for self care. Rebeca Casarez is a 56 year old female admitted on 03/25/2017 for DVT. Pt has [employer] and [facility] Medicaid insurance coverage. Pt sees RAMONA Lowry for primary care. Pt lives in [place], alone and is independent with ADL's at baseline but is active with [employer] caregiving through [employer]- 77 hours a month with Wanda Guevara as her manager case management. H&P has been faxed. Pt explained that she did not have a good match with her previous caregiver and does not have a current caregiver through [employer] at this time. Pt unsure if her CM is arranging for another caregiver yet. Pt states her friend Valorie who lives next door helps her with chores and any miscellaneous needs. Pt is interested in having her friend Valorie be her formal caregiver through [employer] and requested SW look into this for her. SW left voicemail for pt EDWIN Muñoz at [facility] requesting a phone call back when possible regarding the status of pt caregiving and the process for pt friend to become formal caregiver. Pt is ambulating independently with her wheelchair at home and wears 2L of oxygen at baseline with [facility]. Pt is current with the Methadone clinic as well. Pt does not have HH. Pt has been to [facility] in the past. Pt does not have VA insurance or LTC insurance. SW requested DPOA/AD paperwork be completed when possible. Pt provided with Discharge Planning Checklist. Pt denies any needs at this time. SW to continue to follow. Plan: Anticipated discharge home via POV when medically ready. SW to await return phone call back from pt CARSON CM regarding status of caregiving in home. Pt denies any needs at this time. SW to continue to follow. OSKAR Vee Addendum: 03/28/17 at 1359 by DERIK ZUNIGA Amended: Links added.
[2017-03-28] MEDS ORDERED: RIVA20TA PO (15:51)
--- NOTE | 2017-03-28 17:27 | NUR ---
Anticoagulation teaching patient education regarding heparin gtt, blood clots and treatment plan. discussed the reason she's been on heparin gtt; DVT in RLE and that she'll be transitioning to an oral anticoagulation then follow-up out-patient for home management. questions answered at this time. patient verbalized understanding and agreed with plan of care.
--- NOTE | 2017-03-28 19:02 | PCM.PNMED ---
Subjective Date of Service Mar 28, 2017 Subjective Assessment: Pt stated that she is ready to go home. discussed with her the importance of beginning the new medication to keep her blood from clotting. Overnight: no event overnight ROS: C/o headache. Denies fever/chills, nausea/vomiting, weakness, abdominal pain, chest pain, shortness of breath. Exam Vital Signs Vital Sign - Last Date Time Temp Pulse Resp B/P Pulse Ox O2 Delivery O2 Flow Rate FiO2 03/28/17 17:39 37.7 107 16 150/86 87 Nasal Cannula 3.00 Intake and Output 03/27/17 03/27/17 03/28/17 Cumulative From/Thru 15:00 23:00 07:00 03/25/17 15:55 - 03/28/17 06:26 Intake Total 2348 ml 1597 ml 86236 ml Output Total 2800 ml 1800 ml 8270 ml Balance -452 ml -203 ml 3785 ml Intake Oral 1040 ml 600 ml 3434 ml IV Total 1308 ml 997 ml 8621 ml Output Urine Total 2800 ml 1800 ml 8270 ml # Bowel Movements 0 Exam General: No acute distress, well-developed, well-nourished HEENT: Normocephalic, atraumatic. External ears without defect. Pupils equal, round, and reactive to light and accommodation. Anicteric sclerae, moist conjunctivae. Cardiovascular: Regular rate and rhythm with no murmurs, rubs, or gallops appreciated Pulmonary: Coarse breath sounds throughout with bilateral crackles; and inspiratory/expiratory wheezing Normal respiratory effort with no use of accessory muscles. Abdomen: Bowel tones present. Soft, obese. nontender, nondistended. Extremities: No clubbing, cyanosis, mild erythema of the right knee. mild edema of the right lower extremity compared to the left. Skin: Normal temperature, turgor, and texture; no rash, ulcers, or subcutaneous nodules appreciated. Neurological: Cranial nerves grossly intact. Reflexes, coordination, and sensory function within normal limits. Normal muscle strength, tone, and bulk. Psychiatric: Normal mood and affect. Alert and oriented to person, place, and time IVs and Medications IV Fluids 1,650 ml NS given with IV medications. Medications Reviewed: Medications were reviewed in detail Medications High risk meds include: Heparin drip Xarelto Ativan Dilaudid Percocet Methadone Lab and Diagnostics Result Diagram: 03/28/17 03203/28/17 032 Microbiology strep pneumo urine antigen negative X-Rays, CTs and MRIs Chest x-ray Mild edema pattern within the lung parenchyma, heart size at upper limits of normal, suspect mild acute exacerbation of chronic CHF. Dictated by: Lennox Melgoza M.D. on 03/25/2017 at 16:28 Renal ultrasound IMPRESSION: A post-renal cause is not identified for acute renal insufficiency. Dictated by: Mark Hyde M.D. on 03/25/2017 at 21:03 US Veinous Leg Duplex Unilateral IMPRESSION: Bifid popliteal vein present with occlusive venous thrombus within one of the vessels. Additional Diagnostics US RENAL SONOGRAM IMPRESSION: A post-renal cause is not identified for acute renal insufficiency. Dictated by: Mark Hyde M.D. on 03/25/2017 at 21:03 Approved by: Mark Hyde M.D. on 03/25/2017 at 21:05 . Assessment & Plan 56-year-old female with severe respiratory compromise due to smoking and drug use presents with an occlusive right DVT and severe acute kidney injury of unknown etiology. Occlusive right DVT; present on admission; ongoing -3 days of increasing right lower extremity edema and pain with positive ultrasound for occlusive DVT -Dr. Rhodes consulted this morning and states that the patient would not benefit from -Heparin drip DC at 1700. Pt switched to Xarelto. Pt will be sent home with 30 days of Xarelto medication -Continue to monitor for signs of respiratory compromise, however unlikely this time. Severe acute kidney injury; present on admission; ongoing -Somewhat of a mystery why the patient's creatinine has skyrocketed; -Renal ultrasound demonstrated no hydronephrosis or obstruction -Doppler of the renal artery and vein, not done due to improved kidney status -protein/creatinine 0.11, urine protein 19 urine random creatinine 168 -Nephrology consult; discussed this with Dr. 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 Francisco who has been seen multiple times due to her DIP. Patient continues to smoke although she has cut back recently -With her lung function and severely compromised pulmonary function we will watch for any signs of respiratory distress as a PE or likely cause severe symptoms -Continue home medications Hypomagnesemia, not present on admission, resolved - Initial magnesium 1.9 - Repeat magnesium labs 1.0, then after 2 g magnesium 1.1. - After an additional 4 g magnesium, 2.4 - We will continue to monitor, DC in the morning if normal. Non-insulin dependent diabetes type II; present on admission; ongoing -Hold metformin -Continue low-dose correctional Depression/PTSD; present on admission; ongoing -Continue fluoxetine, lorazepam, prazosin, propanolol, hydroxyzine Hypertension -Continue lisinopril, hold furosemide CAD -Continue aspirin and atorvastatin Chronic pain -Continue methadone and gabapentin History of polysubstance abuse -Previously used heroin, marijuana, cocaine, and methamphetamines Nicotine dependence -Currently using tobacco. She has been educated numerous times -Nicotine patch prn Disposition: Patient will be discharged in the morning pending normal magnesium. GI Prophylaxis: Not indicated VTE Prophylaxis: Other (Heparin drip) Resuscitation Status: CPR: Attempt Resuscitation Attending Statement The patient was seen and examined together with Dr. Levi on 03/28/2017 and I agree with the history, exam and plan as outlined in the note above. . David Levi DO Mar 28, 2017 19:02 Harjinder Lang MD Mar 31, 2017 18:20
[2017-03-28] MEDS: LORazepam 0.5 mg Tablet PO PRN (23:59)
[2017-03-29] VITALS (14 sets, daily range): BP systolic 120–161; BP diastolic 57–99; PULSE 97–122; RESP 15–28; O2SAT 40–97
[2017-03-29] MEDS: HYDROmorphone 0.5 mg/0.5 mL iSecure Syringe IVPUSH PRN ×3 (05:26→21:16)
[2017-03-29] MEDS: Albuterol 1.25 mg/3 mL Inhalation Solution NEB PRN (05:31)
--- NOTE | 2017-03-29 06:15 | NUR ---
RESP Dr Torres notified, pt increased SOB, LS are wet sounding, RT gave NEB with no relief, BP 161/99, HR 110, RR 28, O2 4l nc sats 89%, new orders received
[2017-03-29 06:32] LABS: BASOPHILS % (AUTO) 0.4 % (0-3); EOSINOPHILS % (AUTO) 1.1 % (0-5); MONOCYTES % (AUTO) 8.8 % (4-12); Mean Corpuscular Hemoglobin 27.7 pg (27.0-35.0); Mean Corpuscular Volume 85.3 fL (81-100); NEUTROPHILS % (AUTO) 69.6 % (40-74); Platelet Count 217 bil/L (150-400)
[2017-03-29 06:52] LABS: TROPONIN T 0.01 ug/L (0.0-0.011)
[2017-03-29 07:11] LABS: Magnesium 1.3 mg/dL (1.6-2.6)
[2017-03-29] MEDS ORDERED: Magnesium Sulf 2 Gm/50mL Water 2 GM in IV Premix 1 EACH IV ONE (07:50)
[2017-03-29] MEDS: Insulin LISPRO 300 Unit/3 mL Inj SUBQ SCH ×4 (08:00→21:17)
[2017-03-29] MEDS ORDERED: Albuterol-Ipratropium 3 mL Inhalation Solution NEB ONE (08:00)
--- NOTE | 2017-03-29 08:11 | ABG ---
DateTimeAnalyzed 08:02:58 -_ pH ____7.426 - 7.350 7.450 pCO2 ___42.4__ -mmHg 35.0 45.0 pO2 ___39.3__ -mmHg 69.0 116 HCO3- ___27.9__ -mmol/L 22.0 26.0 ABE ____3.2__ -mmol/L tHb ___12.4__ -g/dL O2Hb ___72.6__ -% COHb ____2.6__ -% 1.5 MetHb ____0.0__ -% sO2 ___74.4__ -% FIO2 ___30.0__ -% Drawn By rs - Date/Time Notified____ 08:10:00 -_ Liter_Flow ____3.00_ -L/min Oxygen Device 1 __CANNULA - Notified By rs - Notified Whom FIELD, DARREL - K+ ____4.0__ -mmol/L tO2 ___12.7__ -Vol%
[2017-03-29] MEDS: LORazepam 0.5 mg Tablet PO PRN ×2 (08:59→14:46)
[2017-03-29] MEDS ORDERED: Hydrocortisone 50 mg/mL 2 mL Inj IVPUSH ONE ×2 (09:20→12:30)
--- NOTE | 2017-03-29 10:31 | DRSVH ---
PROCEDURE: X-RAY CHEST ONE VIEW, PORTABLE ([id number]) INDICATIONS: sob TECHNIQUE: One view of the chest was acquired. COMPARISON: [facility], CR, XR CHEST 1VW (PORTABLE), 03/25/2017, 16:03. FINDINGS: Surgical changes and devices: None. Lungs and pleura: Diffuse, widespread bilateral pulmonary interstitial and air space opacities are p resent increased from prior examination. Small right pleural effusion is present. Mediastinum: Mediastinal contours appear normal. Heart size is enlarged. Bones and chest wall: No suspicious bony lesions. Overlying soft tissues appear unremarkable. IMPRESSION: Increasing pulmonary edema and/or diffuse bilateral pneumonia. Correlate clinically. Dictated by: Wei Burden RRA Interpreted: Sachi Che MD on 03/29/2017 at 10:22 Approved by: Sachi Che MD, PhD on 03/29/2017 at 10:28
--- NOTE | 2017-03-29 10:59 | NUR ---
Hypoxia/fever/high flow/CT 0710 Upon initial assessment pt complains of a new throbbing headache, has circumoral cyanosis and dusky complexion, conplains she is too tired to keep her eyes open and has a tremor. Spo2 is 68-75, MD present at bedside. ABG ordered. ABG shows compensated respiratory acidosis, see abg. Pt also has a fever, see VSHigh flow nasal canula initiated. Plan for CT angiogram today after prophalactic treatment for contrast allergy (of unknown severity). After highflow initiated pt is much improved. BAJWA is gone, tremor is gone, good pink skin color has returned, no more circumoral cyanosis. Pt also seems to be mentating much more clearly. Addendum: 03/29/17 at 1109 by MARIA G CARLISLE RN spo2 on high flow NC at 100% is in low -mid 90's
--- NOTE | 2017-03-29 11:29 | NUR ---
Palliative Care Palliative Care received verbal order from Dr Lang 03/29/17 to assist with goals of care. Patient admitted 03/25/17. Palliative Care has seen patient in past. Li (mom) [phone] Carmela (daughter) [phone] Palliative Care to follow. Roxana Monsalve
--- NOTE | 2017-03-29 12:40 | ABG ---
DateTimeAnalyzed 12:32:04 -_ pH ____7.360 - 7.350 7.450 pCO2 ___48.8__ -mmHg 35.0 45.0 pO2 ___76.6__ -mmHg 69.0 116 HCO3- ___27.6__ -mmol/L 22.0 26.0 ABE ____1.8__ -mmol/L tHb ___11.7__ -g/dL O2Hb ___93.8__ -% COHb ____2.3__ -% 1.5 MetHb ____0.0__ -% sO2 ___95.7__ -% FIO2 ___80.0__ -% Drawn By rs - Date/Time Notified____ 12:39:00 -_ Oxygen Device 1 __CANNULA - Notified By rs - Notified Whom Field, David - K+ ____4.2__ -mmol/L tO2 ___15.4__ -Vol%
[2017-03-29] MEDS: oxyCODONE-Acetamin 5-325 mg Tablet PO PRN ×3 (12:53→19:41)
--- NOTE | 2017-03-29 14:23 | NUR ---
network admin consult/ pt emotional status/plan Dr Reed sees pt and does not think that a CT scan is indicated, cancelled CT scan. Plan to put pt on steroids. Pt is upset about steroids but agrees if it will save her life. Pt is tearful about her medical conditions. She desperately wants hip surgery but cant if she is on steroids, but her respiratory treatment requires steroids. Spoke with pt for an hour about her depression and emotions. Recommended to Dr Lang a palliative care consult to determine her goals of treatment.
[2017-03-29] MEDS: MethylprednisoLONE Sodium Succinate 40 mg/mL Inj IVPUSH SCH ×2 (14:48→19:40)
[2017-03-29] MEDS ORDERED: Furosemide 10 mg/mL 4 mL Inj IVPUSH ONE (15:00)
[2017-03-29] MEDS: Cefepime 1,000 MG in Dextrose 5% Minibag Plus 50 ML IV SCH ×2 (16:19→19:39)
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
--- NOTE | 2017-03-29 17:45 | NUR ---
blood sugar BG 374 Dr Lang notified. Orders received.
--- NOTE | 2017-03-29 18:31 | PCM.PNMED ---
Subjective Date of Service Mar 29, 2017 Subjective Assessment: Early this morning patient began complaining of chest pain and shortness of breath. Various studies were obtained and the patient was placed on high flow oxygen. Over the course of the day she began feeling less short of breath. Events Overnight: No acute events overnight. ROS: Headache, Chest pain, shortness of breath. Denies fever/chills, nausea/ vomiting, weakness, abdominal pain, increased swelling in hands or feet. Exam Vital Signs Vital Sign - Last Date Time Temp Pulse Resp B/P Pulse Ox O2 Delivery O2 Flow Rate FiO2 03/29/17 17:00 36.7 104 15 120/57 92 high flow nc 03/29/17 17:00 35 70 Intake and Output 03/28/17 03/28/17 03/29/17 Cumulative From/Thru 15:00 23:00 07:00 03/25/17 15:55 - 03/29/17 05:42 Intake Total 1216 ml 750 ml 55667 ml Output Total 2200 ml 700 ml 36726 ml Balance -984 ml 50 ml 2851 ml Intake Oral 750 ml 750 ml 4934 ml IV Total 466 ml 0 ml 9087 ml Output Urine Total 2200 ml 700 ml 84644 ml # Bowel Movements 0 0 Exam General: Mild distress, well-developed, well-nourished HEENT: Normocephalic, atraumatic. External ears without defect. Pupils equal, round, and reactive to light and accommodation. Anicteric sclerae, moist conjunctivae. Cardiovascular: Regular rate and rhythm with no murmurs, rubs, or gallops appreciated Pulmonary: Coarse breath sounds throughout with bilateral crackles; and inspiratory/expiratory wheezing increased respiratory effort. Abdomen: Bowel tones present. Soft, obese. nontender, nondistended. Extremities: No clubbing, cyanosis, mild erythema of the right knee. mild edema of the right lower extremity compared to the left. Skin: Normal temperature, turgor, and texture; no rash, ulcers, or subcutaneous nodules appreciated. Neurological: Cranial nerves grossly intact. Reflexes, coordination, and sensory function within normal limits. Normal muscle strength, tone, and bulk. Psychiatric: Depressed mood and affect. Alert and oriented to person, place, and time IVs and Medications IV Fluids 100 ml normal saline delivered with IV medications. Medications Reviewed: Medications were reviewed in detail Medications High risk medications include: Lorazepam Hydrocortisone IV Xarelto Dilaudid Percocet Methadone Lab and Diagnostics Result Diagram: 03/29/1760403/29/17 06 Microbiology strep pneumo urine antigen negative X-Rays, CTs and MRIs Chest x-ray Mild edema pattern within the lung parenchyma, heart size at upper limits of normal, suspect mild acute exacerbation of chronic CHF. Dictated by: Lennox Melgoza M.D. on 03/25/2017 at 16:28 Renal ultrasound IMPRESSION: A post-renal cause is not identified for acute renal insufficiency. Dictated by: Mark Hyde M.D. on 03/25/2017 at 21:03 US Veinous Leg Duplex Unilateral IMPRESSION: Bifid popliteal vein present with occlusive venous thrombus within one of the vessels. Additional Diagnostics US RENAL SONOGRAM IMPRESSION: A post-renal cause is not identified for acute renal insufficiency. Dictated by: Mark Hyde M.D. on 03/25/2017 at 21:03 Approved by: Mark Hyde M.D. on 03/25/2017 at 21:05 . Assessment & Plan 56-year-old female with severe respiratory compromise due to smoking and drug use presents with an occlusive right DVT and severe acute kidney injury of unknown etiology. Occlusive right DVT; present on admission; ongoing -3 days of increasing right lower extremity edema and pain with positive ultrasound for occlusive DVT -Dr. Rhodes consulted 03/28 and states that the patient would not benefit from EKOS -Heparin drip DC at 1700 on 03/28. Pt switched to Xarelto. Patient should take 15 mg each day for 2 weeks and then take 20 mg per day thereafter. -Continue to monitor for signs of respiratory compromise, however unlikely this time. Severe acute kidney injury; present on admission; ongoing -Somewhat of a mystery why the patient's creatinine skyrocketed initially; -Renal ultrasound demonstrated no hydronephrosis or obstruction -Doppler of the renal artery and vein, not done due to improved kidney status -Protein/creatinine 0.11, urine protein 19 urine random creatinine 168 -Nephrology consult; discussed this with Dr. 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 Francisco who has been seen multiple times due to her DIP. Patient continues to smoke although she has cut back recently -Patient in respiratory distress this morning after complaining of shortness of breath and increasing chest pain. -ABG and chest x-rays ordered to evaluate respiratory compromise. Patient placed on high flow oxygen. Begin taper titrate to PO2 88-92 - As patient has iodine allergy CT scan was considered and protocol initiated, however after discussion with pulmonary, who is consulted in this case, the decision was made to forego CTA based on the fact that the patient is currently on anticoagulant therapy and this would be the treatment of PE if it were to be found in her case. - Pulmonology believes that this respiratory compromise is due to an exacerbation of her DIP. For this reason high-dose steroids were initiated. -Continue home medications Hypomagnesemia, not present on admission, active - Initial magnesium 1.9 - Magnesium continues to drop despite IV therapy, 6g IV given on 03/28, 2 g given 03/29 - Continue to monitor - If magnesium continues to drop consider consult nephrology on this issue Non-insulin dependent diabetes type II; present on admission; ongoing -Hold metformin -Continue low-dose correctional Depression/PTSD; present on admission; ongoing -Continue fluoxetine, lorazepam, prazosin, propanolol, hydroxyzine Hypertension -Continue lisinopril, hold furosemide CAD -Continue aspirin and atorvastatin Chronic pain -Continue methadone and gabapentin History of polysubstance abuse -Previously used heroin, marijuana, cocaine, and methamphetamines Nicotine dependence -Currently using tobacco. She has been educated numerous times -Nicotine patch prn Of note: The patient has recently been seeking surgery for her right hip through orthopedics. She states that if she cannot have this surgery her quality of life is not such that she would be willing to continue on. She has recently been approved by Dr. Goode to undergo the surgery, however this was before the DVT and exacerbation of her DIP. I spoke with Dr. Goode on 03/29 about her current condition and he was reluctant to continue surgery as she is in this state. He states that she must be DVT free at time of surgery. And states that he would prefer that she be on no more than 10 mg of prednisone at the time of surgery. He states that even though he is willing to operate under these parameters, it is unlikely that anesthesiology would accept a case such as this. Dr. Coffey suggested that in the interim radiology guided cortisone injection may be attempted, and this may alleviate some pain that the patient experiences in the right hip. Disposition: As patient developed respiratory distress this morning patient will be discharged pending respiratory improvement. GI Prophylaxis: Not indicated VTE Prophylaxis: Other (Heparin drip) Resuscitation Status: CPR: Attempt Resuscitation Attending Statement Ongoing acute on chronic respiratory failure with wheezing. The patient was seen and examined together with Dr. Levi on 03/29/2017 and I agree with the history, exam and plan as outlined in the note above. . David Levi DO Mar 29, 2017 18:30 Harjinder Lang MD Mar 31, 2017 18:23
[2017-03-29] MEDS ORDERED: MethylprednisoLONE Sodium Succinate 40 mg/mL Inj IVPUSH SCH (20:30)
[2017-03-29] MEDS ORDERED: Glucose 40% Oral Gel 15 Gm Tube PO PRN (20:45)
[2017-03-29] MEDS ORDERED: Dextrose 10% 250 ML IV PRN (21:10)
[2017-03-29] MEDS ORDERED: Insulin LISPRO 300 Unit/3 mL Inj SUBQ ONE (23:45)
[2017-03-29] MEDS ORDERED: Insulin Human NPH 100 Unit/mL 3 mL Inj SUBQ SCH (23:45)
[2017-03-30] VITALS (15 sets, daily range): BP systolic 125–156; BP diastolic 18–80; PULSE 90–108; RESP 12–30; O2SAT 87–93
[2017-03-30] MEDS: LORazepam 0.5 mg Tablet PO PRN ×4 (00:03→20:14)
[2017-03-30] MEDS: oxyCODONE-Acetamin 5-325 mg Tablet PO PRN ×3 (00:09→20:15)
[2017-03-30] MEDS: HYDROmorphone 0.5 mg/0.5 mL iSecure Syringe IVPUSH PRN ×3 (03:16→17:14)
--- NOTE | 2017-03-30 04:55 | NUR ---
Resp/Pain/BG Maintains 86-88% on 40L Hi flow with 100% FiO2 while awake, up to 98% while sleeping. Reports SOB, perpetuated by anxiety, ativan 0.5 mg given x1 with ineffective results. Spoke to provider and requested increased ativan dose. Pt requests dilaudid and percocet q6 for 9/10 R hip pain. BG elevated this shift, one time orders for NPH 15u and lispro 5u given for BG 428. Afebrile this shift. Care continues.
[2017-03-30] MEDS: Cefepime 1,000 MG in Dextrose 5% Minibag Plus 50 ML IV SCH ×2 (08:27→20:12)
[2017-03-30] MEDS: MethylprednisoLONE Sodium Succinate 40 mg/mL Inj IVPUSH SCH ×2 (08:28→20:13)
[2017-03-30] MEDS ORDERED: predniSONE 20 mg Tablet PO SCH (08:30)
[2017-03-30] MEDS: Insulin LISPRO 300 Unit/3 mL Inj SUBQ SCH ×4 (08:31→23:38)
[2017-03-30 08:41] LABS: Mean Corpuscular Volume 82.8 fL (81-100); Platelet Count 264 bil/L (150-400)
[2017-03-30 09:03] LABS: Magnesium 1.9 mg/dL (1.6-2.6)
[2017-03-30 09:19] LABS: BASOPHILS % (AUTO) 0 % (0-3); EOSINOPHILS % (AUTO) 0 % (0-5); MONOCYTES % (AUTO) 7 % (4-12); NEUTROPHILS % (AUTO) 83 % (40-74)
--- NOTE | 2017-03-30 12:03 | NUR ---
up to chair/cruz cath pt up to chair standby assist, desatted to 74% and markedly SOB on 45L 80% high flow NC. Dr Lang notified. Plan to leave cruz catheter in until respiratory status improves.
[2017-03-30] MEDS: Polyethylene Glycol (PEG) 17 Gm Powder PO PRN (13:04)
[2017-03-30] MEDS: Insulin GLARgine 100 Unit/mL Syringe SUBQ SCH ×2 (14:30→23:33)
--- NOTE | 2017-03-30 14:47 | PCM.PNMED ---
Subjective Date of Service Mar 30, 2017 Subjective Pulmonology and Critical Care Progress Note Hospital day 6 Overnight patient had no complaints from from a respiratory standpoint and is sating 97% on 90% FIO2 with high-flow O2. She is sitting up eating lunch in a chair today. States she feels much improved. pBNP was 4647. Patient seems to have responded to single dose of IV 40 mg furosemide and BID Solumedrol 60 mg continues. Patient states she has not had BM for 4 days. Exam Vital Signs Vital Sign - Last Date Time Temp Pulse Resp B/P Pulse Ox O2 Delivery O2 Flow Rate FiO2 03/30/17 12:35 36.9 90 16 156/80 90 High flow NC 03/30/17 04:57 40 90 Intake and Output 03/29/17 03/29/17 03/30/17 Cumulative From/Thru 15:00 23:00 07:00 03/25/17 15:55 - 03/30/17 05:27 Intake Total 620 ml 745 ml 69833 ml Output Total 1920 ml 900 ml 60314 ml Balance -1300 ml -155 ml 1396 ml Intake Oral 520 ml 654 ml 6108 ml IV Total 100 ml 91 ml 9278 ml Output Urine Total 1920 ml 900 ml 59316 ml # Bowel Movements 0 0 0 Exam General: Appears older then stated age, obese, sitting up in chair eating lunch and speaking in full sentences. HEENT: NC/AT,eyed no erythema, no scleral icterus, nares patent Lungs: overall improved from prior exam but with persistent mild inspiratory wheezes, and moderate diffuse crackles. Heart: RRR no murmurs Abdomen: Soft non-tender, not distended Genitourinary: Mckeon present and draining clear light yellow urine Skin: Warm dry intact without rash, erythema, signs of infection, non diaphoretic IVs and Medications Medications Reviewed: Medications were reviewed in detail Lab and Diagnostics Result Diagram: 03/30/1782403/30/17824 Microbiology strep pneumo urine antigen negative X-Rays, CTs and MRIs Chest x-ray Mild edema pattern within the lung parenchyma, heart size at upper limits of normal, suspect mild acute exacerbation of chronic CHF. Dictated by: Lennox Melgoza M.D. on 03/25/2017 at 16:28 Renal ultrasound IMPRESSION: A post-renal cause is not identified for acute renal insufficiency. Dictated by: Mark Hyde M.D. on 03/25/2017 at 21:03 US Veinous Leg Duplex Unilateral IMPRESSION: Bifid popliteal vein present with occlusive venous thrombus within one of the vessels. Additional Diagnostics US RENAL SONOGRAM IMPRESSION: A post-renal cause is not identified for acute renal insufficiency. Dictated by: Mark Hyde M.D. on 03/25/2017 at 21:03 Approved by: Mark Hyde M.D. on 03/25/2017 at 21:05 . Assessment & Plan 56-year-old female with severe respiratory compromise due to smoking and drug use presents with an occlusive right DVT and severe acute kidney injury of unknown etiology. 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 -Followed by Dr. Francisco as out patient with hx of DIP per pathology report. -Patient continues to smoke although she has cut back recently -Patient continues on Hi-flow O2 and saturating in the upper 90's on FIO2 90% -Continue with Solu-medrol 60mg BID -Start to taper down FIO2 and titrate to O2 sat of 88-92% -Continue home medications Occlusive right DVT; present on admission; ongoing -Patient has hx of 3 days of increasing right lower extremity edema and pain with positive ultrasound for occlusive DVT -Dr. Rhodes consulted 03/28, not candidate for EKOS -Heparin drip DC at 1700 on 03/28. Pt switched to Xarelto. Patient should take 15 mg each day for 2 weeks and then take 20 mg per day thereafter. -Continue to monitor for signs of respiratory compromise, however unlikely this time. Severe acute kidney injury; present on admission; ongoing -Likely secondary to diarrhea combined with Metformin use per Nephrology consultation -Renal ultrasound demonstrated no hydronephrosis or obstruction -Doppler of the renal artery and vein, not done due to improved kidney status -Protein/creatinine 0.11, urine protein 19 urine random creatinine 168 -Immunology stduies to include FERNANDA with reflex, C3, C4, AntiGBM, pending Chronic Hepatitis C infection, Present on admission -Hep C viral load (previously treated) results show 1.5 million viral load Hypomagnesemia, not present on admission, resolved - current magnesium 1.9 - Continue to monitor Non-insulin dependent diabetes type II; present on admission; ongoing -Hold metformin -Continue low-dose correctional Hypertension -Continue lisinopril, hold furosemide CAD -Continue aspirin and atorvastatin History of polysubstance abuse -Previously used heroin, marijuana, cocaine, and methamphetamines Nicotine dependence -Currently using tobacco. She has been educated numerous times -Nicotine patch prn Disposition: As patient developed respiratory distress this morning patient will be discharged pending respiratory improvement. GI Prophylaxis: Not indicated VTE Prophylaxis: Other (Heparin drip) Resuscitation Status: CPR: Attempt Resuscitation Yuan Alvarez DO Mar 30, 2017 14:47 -Currently using tobacco. She has been educated numerous times -Nicotine patch prn Of note: The patient has recently been seeking surgery for her right hip through orthopedics. She states that if she cannot have this surgery her quality of life is not such that she would be willing to continue on. She has recently been approved by Dr. Goode to undergo the surgery, however this was before the DVT and exacerbation of her DIP. I spoke with Dr. Goode on 03/29 about her current condition and he was reluctant to continue surgery as she is in this state. He states that she must be DVT free at time of surgery. And states that he would prefer that she be on no more than 10 mg of prednisone at the time of surgery. He states that even though he is willing to operate under these parameters, it is unlikely that anesthesiology would accept a case such as this. Dr. Coffey suggested that in the interim radiology guided cortisone injection may be attempted, and this may alleviate some pain that the patient experiences in the right hip. Disposition: As patient developed respiratory distress this morning patient will be discharged pending respiratory improvement. GI Prophylaxis: Not indicated VTE Prophylaxis: Other (Heparin drip) Resuscitation Status: CPR: Attempt Resuscitation Yuan Alvarez DO Mar 30, 2017 14:47 will be discharged pending respiratory improvement. GI Prophylaxis: Not indicated VTE Prophylaxis: Other (Heparin drip) Resuscitation Status: CPR: Attempt Resuscitation Yuan Alvarez DO Mar 30, 2017 14:47
--- NOTE | 2017-03-30 14:49 | PCM.PALLBR ---
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 Palliative medicine consulted to assist with determination of goals of care Summary of palliative recommendations: Per discussion with consultants today (03/30): - Her orthopedist notes that her hip arthritis is severe (05/08) and that he felt she would have significant improvement in pain and quality of life with hip replacement. He did not feel that intermittent use of steroids (patient typically undergoes burst and taper of oral or IV steroids with flares of her pulmonary illness, recently every several weeks) would interfere with skin healing and that use of a cemented prosthesis would give adequate results (even in the face of steroid use). He was more concerned about the risk associated with the new DVT and wished to defer any decision about proceeding with an elective joint replacement to other consultants - Anesthesiologist felt that while she may be at high risk with such an orthopedic procedure, it would not be absolutely contraindicated (though there was certainly the possibility that if the patient required intubation perioperatively she might never get off the ventilator and will require tracheostomy, etc.) - Hematology opinion was that in the setting of a provoked DVT (in this case due to her prolonged immobilization- I have been unable to find any documentation indicating prior history of DVT/PE) full anticoagulation would be recommended for at least a month prior to proceeding with such an elective procedure, then with possible need for bridge anticoagulation in the perioperative period and return to full anticoagulation as rapidly as possible postoperatively. 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 I suspect based on her personality this may change if in situation of prison vent. Her mother is DPOAHC-Li Corcoran -Family/emotional support-she is isolated by disability and severity of illness -Spiritual support-not interested Additional Medical Diagnoses with primary management by Hospitalist team include : Occlusive right DVT; present on admission; ongoing Severe acute kidney injury; present on admission; ongoing Chronic lung disease secondary to DIP and COPD; present on admission; ongoing Hypomagnesemia, not present on admission, active Non-insulin dependent diabetes type II; present on admission; ongoing Depression/PTSD; present on admission; ongoing Hypertension CAD Chronic pain History of polysubstance abuse Nicotine dependence Problems: End of Life Preferences FULL CODE Resuscitation Status Resuscitation Status: CPR: Attempt Resuscitation POLST Updates/Changes Previous POLST?: Yes POLST Discussed with: Patient POLST Review Outcome: Form Voided . Pain: Mild Symptom management: Anxiety, Dyspnea, Pain Total time 90 minutes; >50% face to face with patient, providing counselling regarding plans and recommendations, and in care coordination with her medical teams. Palliative Brief Note Date of Service Mar 30, 2017 . Returned to reevaluate patient. Prior to visiting, reviewed her records in the EMR in detail, both for this as well as multiple prior visits. Received signout from other palliative provider and spoke with her bedside nurse. I also spoke by phone with Dr. Goode her orthopedist, as well as anesthesia and hematology, attempting to further clarify recommendations for elective hip surgery in the setting of her multiple comorbidities. When I arrived to see the patient, she was resting in bed, reasonably comfortable. Denied any significant pain and felt that her dyspnea was somewhat improved. Had no particular complaints or concerns other than wanting to move things along so that she could have her hip surgery as soon as possible. She has expressed frustration to the nurses and has said that if she cannot have hip surgery than she just wants to . On exam, alert and oriented. Vital signs noted. Skin warm and dry. No cyanosis. Wearing high flow nasal oxygen. Lungs with decreased breath sounds diffusely, scattered wheezes and crackles. Heart sounds rapid and regular. Abdomen benign. Extremities without pitting edema. I reviewed her imaging studies in the EMR in detail through the last several years. She was previously evaluated with chest CT angiography as well as pulmonary VQ scan- both times negative for pulmonary emboli. Edin Winkler MD Mar 30, 2017 14:49
--- NOTE | 2017-03-30 15:37 | PCM.PNMED ---
Subjective Date of Service Mar 30, 2017 Subjective Morbidly obese 56 yo woman with history of polysubstance abuse and Hep C admitted for DVT who then developed worsening dyspnea and hypoxemia. Has h/o DIP/ ? RB-ILD based on surgical lung bx 2014. Continues to smoke and resistant to ongoing use of steroids. Steroids recently stopped at request of her Orthopedist to decrease risk for complications during planned hip surgery. On at least one earlier occasion, she had an exacerbation of her DIP when steroids were stopped in January of this year. Denied fever, chills, productive cough. Slept well last noc. Sitting up for lunch and appears comfortable, speaking in full sentences. SpO2 97 on high flow O2 @ 40L / FiO2 0.9 Exam Vital Signs Vital Sign - Last Date Time Temp Pulse Resp B/P Pulse Ox O2 Delivery O2 Flow Rate FiO2 03/30/17 14:00 16 92 Nasal Cannula 45 85 03/30/17 12:35 36.9 90 156/80 Intake and Output 03/29/17 03/29/17 03/30/17 Cumulative From/Thru 15:00 23:00 07:00 03/25/17 15:55 - 03/30/17 05:27 Intake Total 620 ml 745 ml 04921 ml Output Total 1920 ml 900 ml 36605 ml Balance -1300 ml -155 ml 1396 ml Intake Oral 520 ml 654 ml 6108 ml IV Total 100 ml 91 ml 9278 ml Output Urine Total 1920 ml 900 ml 94673 ml # Bowel Movements 0 0 0 Exam flushed appearing obese woman who appears older than age Lungs Decreased BS, no wheezes, rales, rhonchi CV Distant HTs, no m/g/r Lab and Diagnostics Result Diagram: 03/30/17 0825 03/30/17 0825 Microbiology strep pneumo urine antigen negative X-Rays, CTs and MRIs Chest x-ray Mild edema pattern within the lung parenchyma, heart size at upper limits of normal, suspect mild acute exacerbation of chronic CHF. Dictated by: Lennox Melgoza M.D. on 03/25/2017 at 16:28 Renal ultrasound IMPRESSION: A post-renal cause is not identified for acute renal insufficiency. Dictated by: Mark Hyde M.D. on 03/25/2017 at 21:03 US Veinous Leg Duplex Unilateral IMPRESSION: Bifid popliteal vein present with occlusive venous thrombus within one of the vessels. Additional Diagnostics US RENAL SONOGRAM IMPRESSION: A post-renal cause is not identified for acute renal insufficiency. Dictated by: Mark Hyde M.D. on 03/25/2017 at 21:03 Approved by: Mark Hyde M.D. on 03/25/2017 at 21:05 . Assessment & Plan IMP Acute hypoxemic resp failure. Likely multifactorial with CHF due to diastolic disease and exacerbation of her DIP the main culprits. Cant' exclude a pneumonia as well. H/O Hep C DVT RLE NIDDM H/O polysubstance abuse Rt hip osteoarthritis, severe REC Solumedrol with planned transition to oral steroids in 3-5 days as she improves. Eventually might be a good candidate for a steroid sparing agent such as Imuran Azithro as immunomodulator Empiric abx, cefepime for now Anticoagulation per primary team Wean O2 as tolerates Smoking cessatoin GI Prophylaxis: Not indicated VTE Prophylaxis: Other (Heparin drip) Resuscitation Status: CPR: Attempt Resuscitation Herb Reed MD Mar 30, 2017 15:37 Hypomagnesemia, not present on admission, resolved - current magnesium 1.9 - Continue to monitor Non-insulin dependent diabetes type II; present on admission; ongoing -Hold metformin -Continue low-dose correctional Hypertension -Continue lisinopril, hold furosemide CAD -Continue aspirin and atorvastatin History of polysubstance abuse -Previously used heroin, marijuana, cocaine, and methamphetamines Nicotine dependence -Currently using tobacco. She has been educated numerous times -Nicotine patch prn Disposition: As patient developed respiratory distress this morning patient will be discharged pending respiratory improvement. GI Prophylaxis: Not indicated VTE Prophylaxis: Other (Heparin drip) Resuscitation Status: CPR: Attempt Resuscitation Herb Reed MD Mar 30, 2017 15:37
[2017-03-30] MEDS: Albuterol 1.25 mg/3 mL Inhalation Solution NEB PRN (18:03)
--- NOTE | 2017-03-30 21:07 | PCM.PNMED ---
Subjective Date of Service Mar 30, 2017 Subjective 56-year-old female with severe respiratory compromise due to smoking and drug use presents with an occlusive right DVT and severe acute kidney injury of unknown etiology. Assessment: Patient states she is currently doing well on flow oxygen. She has been very depressed and teary-eyed. She expresses concern for not being able to do her surgery. Events Overnight: No acute events overnight. ROS: Denies fever/chills, nausea/vomiting, headache, weakness, abdominal pain, chest pain, shortness of breath, increased swelling in hands or feet. Exam Vital Signs Vital Sign - Last Date Time Temp Pulse Resp B/P Pulse Ox O2 Delivery O2 Flow Rate FiO2 03/30/17 14:00 16 92 Nasal Cannula 45 85 03/30/17 12:35 36.9 90 156/80 Intake and Output 03/29/17 03/29/17 03/30/17 Cumulative From/Thru 15:00 23:00 07:00 03/25/17 15:55 - 03/30/17 05:27 Intake Total 620 ml 745 ml 87218 ml Output Total 1920 ml 900 ml 19460 ml Balance -1300 ml -155 ml 1396 ml Intake Oral 520 ml 654 ml 6108 ml IV Total 100 ml 91 ml 9278 ml Output Urine Total 1920 ml 900 ml 57128 ml # Bowel Movements 0 0 0 Exam General: Mild distress, well-developed, well-nourished HEENT: Normocephalic, atraumatic. External ears without defect. Pupils equal, round, and reactive to light and accommodation. Anicteric sclerae, moist conjunctivae. Cardiovascular: Regular rate and rhythm with no murmurs, rubs, or gallops appreciated Pulmonary: Coarse breath sounds throughout with bilateral crackles; and inspiratory/expiratory wheezing increased respiratory effort. Currently on high flow oxygen. Abdomen: Bowel tones present. Soft, obese. nontender, nondistended. Extremities: No clubbing, cyanosis, mild erythema of the right knee. mild edema of the right lower extremity compared to the left. Skin: Normal temperature, turgor, and texture; no rash, ulcers, or subcutaneous nodules appreciated. Neurological: Cranial nerves grossly intact. Reflexes, coordination, and sensory function within normal limits. Normal muscle strength, tone, and bulk. Psychiatric: Depressed mood and affect. Alert and oriented to person, place, and time IVs and Medications IV Fluids 50 mg normal saline delivered with IV medications. Medications Reviewed: Medications were reviewed in detail Medications High-risk medications include: Percocet Lorazepam Sirota Dilaudid Lab and Diagnostics Result Diagram: 03/30/1782403/30/17824 Microbiology strep pneumo urine antigen negative X-Rays, CTs and MRIs Chest x-ray Mild edema pattern within the lung parenchyma, heart size at upper limits of normal, suspect mild acute exacerbation of chronic CHF. Dictated by: Lennox Melgoza M.D. on 03/25/2017 at 16:28 Renal ultrasound IMPRESSION: A post-renal cause is not identified for acute renal insufficiency. Dictated by: Mark Hyde M.D. on 03/25/2017 at 21:03 US Veinous Leg Duplex Unilateral IMPRESSION: Bifid popliteal vein present with occlusive venous thrombus within one of the vessels. Additional Diagnostics US RENAL SONOGRAM IMPRESSION: A post-renal cause is not identified for acute renal insufficiency. Dictated by: Mark Hyde M.D. on 03/25/2017 at 21:03 Approved by: Mark Hyde M.D. on 03/25/2017 at 21:05 . Assessment & Plan 56-year-old female with severe respiratory compromise due to smoking and drug use presents with an occlusive right DVT and severe acute kidney injury of unknown etiology. 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 -Followed by Dr. Francisco as out patient with hx of DIP per pathology report. -Patient continues to smoke although she has cut back recently -Patient continues on Hi-flow O2 and saturating in the upper 90's on FIO2 90% -Continue with Solu-medrol 60mg BID -Start to taper down FIO2 and titrate to O2 sat of 88-92% -Continue home medications Occlusive right DVT; present on admission; ongoing -3 days of increasing right lower extremity edema and pain with positive ultrasound for occlusive DVT -Dr. Rhodes consulted 03/28 and states that the patient would not benefit from EKOS -Heparin drip DC at 1700 on 03/28. Pt switched to Xarelto. Patient should take 15 mg each day for 2 weeks and then take 20 mg per day thereafter. - Respiratory compromise could possibly be due to PE, however treatment for this condition would be blood thinners which she is currently receiving. Severe acute kidney injury; present on admission; ongoing -Somewhat of a mystery why the patient's creatinine skyrocketed initially; -Renal ultrasound demonstrated no hydronephrosis or obstruction -Doppler of the renal artery and vein, not done due to improved kidney status -Protein/creatinine 0.11, urine protein 19 urine random creatinine 168 -Nephrology consult; discussed this with Dr. 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 Francisco who has been seen multiple times due to her DIP. Patient continues to smoke although she has cut back recently -Patient in respiratory distress this morning after complaining of shortness of breath and increasing chest pain. -ABG and chest x-rays ordered to evaluate respiratory compromise. Patient placed on high flow oxygen. taper and titrate to PO2 88-92 - As patient has iodine allergy CT scan was considered and protocol initiated, however after discussion with pulmonary, who is consulted in this case, the decision was made to forego CTA based on the fact that the patient is currently on anticoagulant therapy and this would be the treatment of PE if it were to be found in her case. - Pulmonology believes that this respiratory compromise is due to an exacerbation of her DIP. For this reason high-dose steroids were initiated. - Azithromycin initiated by pulmonology for immunomodulation - Continue cefepime for empiric antibiotic coverage as pneumonia cannot be ruled out at this time. - Continue home medications Hypomagnesemia, not present on admission, active - Initial magnesium 1.9, - Magnesium continues to drop despite IV therapy, 6g IV given on 03/28, 2 g given 03/29 - Magnesium within normal limits today - Continue to monitor, If magnesium continues to drop consider consult nephrology on this issue Non-insulin dependent diabetes type II; present on admission; ongoing - Hold metformin - Blood sugars on the night of 03/29 trending due to initiation of corticosteroid therapy - Long acting Lantus started to cover for excessive sugars due to corticosteroids. - Continue low-dose correctional Leukocytosis, not present on admission, active - White blood cells of increased as of 03/30 this is likely due to patient corticosteroids - Patient currently on antibiotics as pneumonia cannot be ruled out at this time. - We will continue to monitor for signs of infection Depression/PTSD; present on admission; ongoing -Continue fluoxetine, lorazepam, prazosin, propanolol, hydroxyzine Hypertension -Continue lisinopril, hold furosemide CAD -Continue aspirin and atorvastatin Chronic pain -Continue methadone and gabapentin History of polysubstance abuse -Previously used heroin, marijuana, cocaine, and methamphetamines Nicotine dependence -Currently using tobacco. She has been educated numerous times -Nicotine patch prn Of note: The patient has recently been seeking surgery for her right hip through orthopedics. She states that if she cannot have this surgery her quality of life is not such that she would be willing to continue on. She has recently been approved by Dr. Goode to undergo the surgery, however this was before the DVT and exacerbation of her DIP. I spoke with Dr. Goode on 03/29 about her current condition and he was reluctant to continue surgery as she is in this state. He states that she must be DVT free at time of surgery. And states that he would prefer that she be on no more than 10 mg of prednisone at the time of surgery. He states that even though he is willing to operate under these parameters, it is unlikely that anesthesiology would accept a case such as this. Dr. Coffey suggested that in the interim radiology guided cortisone injection may be attempted, and this may alleviate some pain that the patient experiences in the right hip. Update 03/30: Palliative was consulted on this case and began to discuss with the patient various options. After a very long discussion, the patient stated that she is not willing to "give up" at this moment and is willing to do what is necessary to be able to proceed towards surgery. I reiterated the difficulty of continuing on in this pattern and she reassured me that she was willing to face whatever difficulties may arise. She is aware that it may be several months before surgery can be obtained and is willing to endure whatever it takes in order to make that happen, including stopping smoking. I also discussed with her the option of having interventional radiology perform a steroid injection of the joint. She states that the last time that the joint was injected she subsequently suffered a stroke, and for this reason she is concerned about undergoing another injection. I stated that this option would remain open to her if she should change her mind. Occlusive right DVT; present on admission; ongoing -Patient has hx of 3 days of increasing right lower extremity edema and pain with positive ultrasound for occlusive DVT -Dr. Rhodes consulted 03/28, not candidate for EKOS -Heparin drip DC at 1700 on 03/28. Pt switched to Xarelto. Patient should take 15 mg each day for 2 weeks and then take 20 mg per day thereafter. -Continue to monitor for signs of respiratory compromise, however unlikely this time. Severe acute kidney injury; present on admission; ongoing -Likely secondary to diarrhea combined with Metformin use per Nephrology consultation -Renal ultrasound demonstrated no hydronephrosis or obstruction -Doppler of the renal artery and vein, not done due to improved kidney status -Protein/creatinine 0.11, urine protein 19 urine random creatinine 168 -Immunology stduies to include FERNANDA with reflex, C3, C4, AntiGBM, pending Chronic Hepatitis C infection, Present on admission -Hep C viral load (previously treated) results show 1.5 million viral load Hypomagnesemia, not present on admission, resolved - current magnesium 1.9 - Continue to monitor Non-insulin dependent diabetes type II; present on admission; ongoing -Hold metformin -Continue low-dose correctional Hypertension -Continue lisinopril, hold furosemide CAD -Continue aspirin and atorvastatin History of polysubstance abuse -Previously used heroin, marijuana, cocaine, and methamphetamines Nicotine dependence -Currently using tobacco. She has been educated numerous times -Nicotine patch prn Disposition: As patient developed respiratory distress this morning patient will be discharged pending respiratory improvement. GI Prophylaxis: Not indicated VTE Prophylaxis: Other (Heparin drip) Resuscitation Status: CPR: Attempt Resuscitation Attending Statement The patient was seen and examined together with Dr. Levi on 03/30/2017 and I agree with the history, exam and plan as outlined in the note above. . David Levi DO Mar 30, 2017 15:27 Harjinder Lang MD Mar 31, 2017 18:26
[2017-03-31] VITALS (11 sets, daily range): BP systolic 131–161; BP diastolic 68–91; PULSE 75–105; RESP 16–28; O2SAT 89–95
[2017-03-31] MEDS: oxyCODONE-Acetamin 5-325 mg Tablet PO PRN ×2 (03:21→20:04)
[2017-03-31] MEDS: HYDROmorphone 0.5 mg/0.5 mL iSecure Syringe IVPUSH PRN ×3 (05:10→16:44)
[2017-03-31 06:17] LABS: EOSINOPHILS % (AUTO) 0 % (0-5); Mean Corpuscular Hemoglobin 27.6 pg (27.0-35.0); Mean Corpuscular Volume 86.2 fL (81-100); Platelet Count 256 bil/L (150-400)
[2017-03-31 06:29] LABS: Magnesium 1.9 mg/dL (1.6-2.6)
--- NOTE | 2017-03-31 06:57 | NUR ---
Pain/Respiratory Alert and moderately anxious, indicates increase pain and anxiety early in shift. Medications given, rested with eyes closed for extended periods. Receiving titrations of HighFlow o2, SPO2 upper 80s; RT @ bedside to titrate prn. Lung coarse and moist, MD notified (Dr. Noe, and at bedside to assess). SPO2 will decompensate with activity, encouraged to rest. Tele: SR in 80s. Report given to oncoming RN
[2017-03-31 07:44] LABS: BASOPHILS % (AUTO) 0 % (0-3); MONOCYTES % (AUTO) 4 % (4-12); NEUTROPHILS % (AUTO) 86 % (40-74)
[2017-03-31] MEDS: Insulin LISPRO 300 Unit/3 mL Inj SUBQ SCH ×4 (08:00→22:00)
[2017-03-31] MEDS ORDERED: Furosemide 10 mg/mL 4 mL Inj IVPUSH ONE (08:00)
[2017-03-31] MEDS: MethylprednisoLONE Sodium Succinate 40 mg/mL Inj IVPUSH SCH ×2 (09:12→20:33)
[2017-03-31] MEDS: Cefepime 1,000 MG in Dextrose 5% Minibag Plus 50 ML IV SCH ×2 (09:14→20:33)
[2017-03-31] MEDS: LORazepam 0.5 mg Tablet PO PRN ×2 (09:22→16:43)
--- NOTE | 2017-03-31 09:48 | PCM.PALLBR ---
Palliative Care Recommendation 56-year-old female admitted with lower extremity DVT (provoked- related to her immobilization) but also end-stage pulmonary disease secondary to DIP as well as chronic pain with narcotic habituation, chronic anxiety, polysubstance abuse , etc. Palliative medicine consulted to assist with determination of goals of care As patient is consistent at this time in her wishes, and goals are clearly delineated, palliative medicine will sign off at this time. Please contact us if we may be of further assistance. Summary of palliative recommendations: Per discussion with consultants on 03/30: - Her orthopedist noted that her hip arthritis is severe (05/08) and that he felt she would have significant improvement in pain and quality of life with hip replacement. He did not feel that intermittent use of steroids (patient typically undergoes burst and taper of oral or IV steroids with flares of her pulmonary illness, recently every several weeks) would interfere with skin healing and that use of a cemented prosthesis would give adequate results (even in the face of steroid use). He was more concerned about the risk associated with the new DVT and wished to defer any decision about proceeding with an elective joint replacement to other consultants - Anesthesiologist felt that while she would be at high risk with such an orthopedic procedure, it would not be absolutely contraindicated (though there was certainly the possibility that if the patient required intubation perioperatively she might never get off the ventilator and will require tracheostomy, etc.) - Hematology opinion was that in the setting of a provoked DVT (in this case due to her prolonged immobilization- I have been unable to find any documentation indicating prior history of DVT/PE) full anticoagulation would be recommended for at least a month prior to proceeding with such an elective procedure, with anticoagulation management in the perioperative period to be determined depending on clinical status at time of surgery. Of course, if evidence came to light of prior unprovoked DVT/PE that recommendation would no longer be valid and patient might require additional consideration/intervention before elective surgery (? 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; present on admission; ongoing Hypomagnesemia, not present on admission, active Non-insulin dependent diabetes type II; present on admission; ongoing Depression/PTSD; present on admission; ongoing Hypertension CAD Chronic pain History of polysubstance abuse Nicotine dependence Problems: End of Life Preferences FULL CODE Goals of Care Stabilization, returned home and then surgery on her hip as soon as possible Disposition Patient hopes to return home Resuscitation Status Resuscitation Status: CPR: Attempt Resuscitation POLST Updates/Changes Previous POLST?: Yes POLST Discussed with: Patient POLST Review Outcome: Form Voided . Pain: Mild Symptom management: Anxiety, Dyspnea, Pain Total time 40 minutes; >50% face to face with patient , providing counselling regarding plans and recommendations, and in care coordination with her medical teams. Palliative Brief Note Date of Service Mar 31, 2017 . Returned to reevaluate patient. Prior to visiting, reviewed her updated notes in the EMR in detail, spoke with her bedside nurse. On arrival, she was sitting up at bedside fiddling with her high flow nasal oxygen cannula. Continues to complain of pain and anxiety, requesting more medications, which I gently deflected. I reviewed in detail with her the conversations I had with subspecialists yesterday- she was pleased to hear that , so far, everyone still feels that she could undergo hip replacement surgery ( though she would require at least one month of full anticoagulation first). We discussed the risks of surgery, including the significant risk of respiratory failure necessitating intubation and prolonged mechanical ventilation, possibly even tracheostomy, and though she is fearful of this she would not let it prevent her from undergoing surgery because of the severe chronic right hip pain she has. On exam, chronically ill-appearing woman, cushingoid, sitting outside of bed. Vital signs noted. Skin is warm and dry. Lungs with decreased breath sounds diffusely, scattered squeaks and wheezes, and by basilar crackles. Heart sounds rapid and regular. Abdomen obese. Laboratories reviewed in detail. Edin Winkler MD Mar 31, 2017 09:48
--- NOTE | 2017-03-31 10:17 | DRSVH ---
PROCEDURE: X-RAY CHEST ONE VIEW, PORTABLE ([id number]) INDICATIONS: Hypoxemia TECHNIQUE: One view of the chest was acquired. COMPARISON: [facility], CR, XR CHEST 1VW (PORTABLE), 03/29/2017, 6:48. FINDINGS: Surgical changes and devices: None. Lungs and pleura: Diffuse, widespread bilateral pulmonary interstitial and air space opacities are p resent similar to prior examination. Small right pleural effusion is present. Mediastinum: Mediastinal contours appear normal. Heart size is enlarged. Bones and chest wall: No suspicious bony lesions. Overlying soft tissues appear unremarkable. IMPRESSION: Pulmonary edema and/or diffuse bilateral pneumonia similar to prior examination. Dictated by: Wei Burden [facility] Interpreted: Jens Jarrell MD on 03/31/2017 at 9:27 Approved by: Jens Jarrell M.D. on 03/31/2017 at 10:15
[2017-03-31] MEDS: Albuterol 1.25 mg/3 mL Inhalation Solution NEB PRN (12:05)
--- NOTE | 2017-03-31 13:48 | PCM.PNMED ---
Subjective Date of Service Mar 31, 2017 Subjective 56-year-old female with severe respiratory compromise due to smoking and drug use presents with an occlusive right DVT and severe acute kidney injury of unknown etiology. Assessment: pt remains short of breath, especially with limited movement, even from bed to commode. We discussed again the plans for he management here in the hospital. Overnight: no events overnight ROS: complains of SOB, fatigue. Denies headache, nausea, vomiting, fever/chills. Exam Vital Signs Vital Sign - Last Date Time Temp Pulse Resp B/P Pulse Ox O2 Delivery O2 Flow Rate FiO2 03/31/17 12:06 16 93 Nasal Cannula 50 90 03/31/17 12:06 75 03/31/17 11:58 37.0 150/68 Intake and Output 03/30/17 03/30/17 03/31/17 Cumulative From/Thru 15:00 23:00 07:00 03/25/17 15:55 - 03/31/17 06:19 Intake Total 850 ml 350 ml 08377 ml Output Total 450 ml 500 ml 40717 ml Balance 400 ml -150 ml 1646 ml Intake Oral 800 ml 300 ml 7208 ml IV Total 50 ml 50 ml 9378 ml Output Urine Total 450 ml 500 ml 59334 ml # Bowel Movements 0 0 Exam General: Mild distress, well-developed, well-nourished HEENT: Normocephalic, atraumatic. External ears without defect. Pupils equal, round, and reactive to light and accommodation. Anicteric sclerae, moist conjunctivae. Cardiovascular: Regular rate and rhythm with no murmurs, rubs, or gallops appreciated Pulmonary: Coarse breath sounds throughout with bilateral crackles; and inspiratory/expiratory wheezing increased respiratory effort. Currently on high flow oxygen. Abdomen: Bowel tones present. Soft, obese. nontender, nondistended. Extremities: No clubbing, cyanosis, mild erythema of the right knee. mild edema of the right lower extremity compared to the left. Skin: Normal temperature, turgor, and texture; no rash, ulcers, or subcutaneous nodules appreciated. Neurological: Cranial nerves grossly intact. Reflexes, coordination, and sensory function within normal limits. Normal muscle strength, tone, and bulk. Psychiatric: Depressed mood and affect. Alert and oriented to person, place, and time IVs and Medications IV Fluids 50 ml NS delivered with IV medications Medications Reviewed: Medications were reviewed in detail Medications High risk medications include: Xarelto methadone dilaudid ativan percocet Lab and Diagnostics Result Diagram: 03/31/1745 03/31/1745 Microbiology strep pneumo urine antigen negative X-Rays, CTs and MRIs Chest x-ray Mild edema pattern within the lung parenchyma, heart size at upper limits of normal, suspect mild acute exacerbation of chronic CHF. Dictated by: Lennox Melgoza M.D. on 03/25/2017 at 16:28 Renal ultrasound IMPRESSION: A post-renal cause is not identified for acute renal insufficiency. Dictated by: Mark Hyde M.D. on 03/25/2017 at 21:03 US Veinous Leg Duplex Unilateral IMPRESSION: Bifid popliteal vein present with occlusive venous thrombus within one of the vessels. Additional Diagnostics US RENAL SONOGRAM IMPRESSION: A post-renal cause is not identified for acute renal insufficiency. Dictated by: Mark Hyde M.D. on 03/25/2017 at 21:03 Approved by: Mark Hyde M.D. on 03/25/2017 at 21:05 . Assessment & Plan 56-year-old female with severe respiratory compromise due to smoking and drug use presents with an occlusive right DVT and severe acute kidney injury of unknown etiology. 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 -Followed by Dr. Francisco as out patient with hx of DIP per pathology report. -Patient continues to smoke although she has cut back recently -Patient continues on Hi-flow O2 and saturating in the upper 90's on FIO2 90% -Continue with Solu-medrol 60mg BID -Start to taper down FIO2 and titrate to O2 sat of 88-92% -No need for Lasix at this time. I do not believe that respiratory failure is due to CHF at this time. The echo performed in January is not suggestive of a CHF process. Opacities seen on Xray noted by radiology as CHF are due to her DIP, please see recent CT chest for clarity on this issue. -Continue home medications Occlusive right DVT; present on admission; ongoing -3 days of increasing right lower extremity edema and pain with positive ultrasound for occlusive DVT -Dr. Rhodes consulted 03/28 and states that the patient would not benefit from EKOS -Heparin ip DC at 1700 on 03/28. Pt switched to Xarelto. Patient should take 15 mg each day for 2 weeks and then take 20 mg per day thereafter. - Respiratory compromise could possibly be due to PE, however treatment for this condition would be blood thinners which she is currently receiving. Severe acute kidney injury; present on admission; resolved -Somewhat of a mystery why the patient's creatinine skyrocketed initially; -Renal ultrasound demonstrated no hydronephrosis or obstruction -Doppler of the renal artery and vein, not done due to improved kidney status -Protein/creatinine 0.11, urine protein 19 urine random creatinine 168 -Nephrology consult; discussed this with Dr. 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 Francisco who has been seen multiple times due to her DIP. Patient continues to smoke although she has cut back recently -Patient in respiratory distress this morning after complaining of shortness of breath and increasing chest pain. -ABG and chest x-rays ordered to evaluate respiratory compromise. Patient placed on high flow oxygen. taper and titrate to PO2 88-92 - As patient has iodine allergy CT scan was considered and protocol initiated, however after discussion with pulmonary, who is consulted in this case, the decision was made to forego CTA based on the fact that the patient is currently on anticoagulant therapy and this would be the treatment of PE if it were to be found in her case. - Pulmonology believes that this respiratory compromise is due to an exacerbation of her DIP. For this reason high-dose steroids were initiated. - Azithromycin initiated by pulmonology for immunomodulation - Continue cefepime for empiric antibiotic coverage as pneumonia cannot be ruled out at this time. - Continue home medications Hypomagnesemia, not present on admission, active - Initial magnesium 1.9, - On 03/28 Magnesium continued to drop despite 6g IV, 2g given 03/29 - Magnesium within normal limits today - Continue to monitor Non-insulin dependent diabetes type II; present on admission; ongoing - Hold metformin - Blood sugars on the night of 03/29 trending due to initiation of corticosteroid therapy - better blood sugar control today. - Long acting Lantus started to cover for excessive sugars due to corticosteroids. - Continue low-dose correctional Leukocytosis, not present on admission, active - White blood cells of increased as of 03/30 this is likely due to corticosteroids - Patient currently on antibiotics as pneumonia cannot be ruled out at this time. - We will continue to monitor for signs of infection Depression/PTSD; present on admission; ongoing -Continue fluoxetine, lorazepam, prazosin, propanolol, hydroxyzine Hypertension -Continue lisinopril, hold furosemide CAD -Continue aspirin and atorvastatin Chronic pain -Continue methadone and gabapentin History of polysubstance abuse -Previously used heroin, marijuana, cocaine, and methamphetamines Nicotine dependence -Currently using tobacco. She has been educated numerous times -Nicotine patch prn Of note: The patient has recently been seeking surgery for her right hip through orthopedics. She states that if she cannot have this surgery her quality of life is not such that she would be willing to continue on. She has recently been approved by Dr. Goode to undergo the surgery, however this was before the DVT and exacerbation of her DIP. I spoke with Dr. Goode on 03/29 about her current condition and he was reluctant to continue surgery as she is in this state. He states that she must be DVT free at time of surgery. And states that he would prefer that she be on no more than 10 mg of prednisone at the time of surgery. He states that even though he is willing to operate under these parameters, it is unlikely that anesthesiology would accept a case such as this. Dr. Coffey suggested that in the interim radiology guided cortisone injection may be attempted, and this may alleviate some pain that the patient experiences in the right hip. Update 03/30: Palliative was consulted on this case and began to discuss with the patient various options. After a very long discussion, the patient stated that she is not willing to "give up" at this moment and is willing to do what is necessary to be able to proceed towards surgery. I reiterated the difficulty of continuing on in this pattern and she reassured me that she was willing to face whatever difficulties may arise. She is aware that it may be several months before surgery can be obtained and is willing to endure whatever it takes in order to make that happen, including stopping smoking. I also discussed with her the option of having interventional radiology perform a steroid injection of the joint. She states that the last time that the joint was injected she subsequently suffered a stroke, and for this reason she is concerned about undergoing another injection. I stated that this option would remain open to her if she should change her mind. Occlusive right DVT; present on admission; ongoing -Patient has hx of 3 days of increasing right lower extremity edema and pain with positive ultrasound for occlusive DVT -Dr. Rhodes consulted 03/28, not candidate for EKOS -Heparin drip DC at 1700 on 03/28. Pt switched to Xarelto. Patient should take 15 mg each day for 2 weeks and then take 20 mg per day thereafter. -Continue to monitor for signs of respiratory compromise, however unlikely this time. Severe acute kidney injury; present on admission; ongoing -Likely secondary to diarrhea combined with Metformin use per Nephrology consultation -Renal ultrasound demonstrated no hydronephrosis or obstruction -Doppler of the renal artery and vein, not done due to improved kidney status -Protein/creatinine 0.11, urine protein 19 urine random creatinine 168 -Immunology stduies to include FERNANDA with reflex, C3, C4, AntiGBM, pending Chronic Hepatitis C infection, Present on admission -Hep C viral load (previously treated) results show 1.5 million viral load Hypomagnesemia, not present on admission, resolved - current magnesium 1.9 - Continue to monitor Non-insulin dependent diabetes type II; present on admission; ongoing -Hold metformin -Continue low-dose correctional Hypertension -Continue lisinopril, hold furosemide CAD -Continue aspirin and atorvastatin History of polysubstance abuse -Previously used heroin, marijuana, cocaine, and methamphetamines Nicotine dependence -Currently using tobacco. She has been educated numerous times -Nicotine patch prn Disposition: As patient developed respiratory distress this morning patient will be discharged pending respiratory improvement. GI Prophylaxis: Not indicated VTE Prophylaxis: Other (Heparin drip) Resuscitation Status: CPR: Attempt Resuscitation Attending Statement The patient was seen and examined together with Dr. Levi on 03/31/2017 and I agree with the history, exam and plan as outlined in the note above. . David Levi DO Mar 31, 2017 13:48 Harjinder Lang MD Mar 31, 2017 18:27
--- NOTE | 2017-03-31 15:22 | PCM.PNMED ---
Subjective Date of Service Mar 31, 2017 Subjective Pulmonology and Critical Care Progress Note Hospital day 7 Overnight nursing reports patient was desating into the upper 79 with any movement or up to bed side. Patient currently satting low to mid 80's on 80% FIO2 with high-flow O2 of 50. Patient reports no change in her respiratory status since yesterday. Recall yesterday she was seated in bedside chair eating lunch and satting in the upper 90's on FIO2 of 85. BID Solumedrol 60 mg continues. Lung sounds this morning continue have inspiratory wheezing. Exam Vital Signs Vital Sign - Last Date Time Temp Pulse Resp B/P Pulse Ox O2 Delivery O2 Flow Rate FiO2 03/31/17 12:06 16 93 Nasal Cannula 50 90 03/31/17 12:06 75 03/31/17 11:58 37.0 150/68 Intake and Output 03/30/17 03/30/17 03/31/17 Cumulative From/Thru 15:00 23:00 07:00 03/25/17 15:55 - 03/31/17 06:19 Intake Total 850 ml 350 ml 52678 ml Output Total 450 ml 500 ml 31778 ml Balance 400 ml -150 ml 1646 ml Intake Oral 800 ml 300 ml 7208 ml IV Total 50 ml 50 ml 9378 ml Output Urine Total 450 ml 500 ml 22870 ml # Bowel Movements 0 0 Exam General: Appears older then stated age, obese,resting in bed and speaking full sentences. Patient appears sob. HEENT: NC/AT,eyed no erythema, no scleral icterus, nares patent Lungs: persistent inspiratory wheezes worse then prior exam, and moderate diffuse crackles bilaterally persist. Heart: RRR no murmurs Abdomen: Soft non-tender, not distended Genitourinary: Mckeon present and draining clear light yellow urine. Skin: Warm dry intact without rash, erythema, signs of infection, non diaphoretic IVs and Medications Medications Reviewed: Medications were reviewed in detail Lab and Diagnostics Result Diagram: 03/31/1754403/31/17544 Microbiology strep pneumo urine antigen negative X-Rays, CTs and MRIs Chest x-ray Mild edema pattern within the lung parenchyma, heart size at upper limits of normal, suspect mild acute exacerbation of chronic CHF. Dictated by: Lennox Melgoza M.D. on 03/25/2017 at 16:28 Renal ultrasound IMPRESSION: A post-renal cause is not identified for acute renal insufficiency. Dictated by: Mark Hyde M.D. on 03/25/2017 at 21:03 US Veinous Leg Duplex Unilateral IMPRESSION: Bifid popliteal vein present with occlusive venous thrombus within one of the vessels. Additional Diagnostics US RENAL SONOGRAM IMPRESSION: A post-renal cause is not identified for acute renal insufficiency. Dictated by: Mark Hyde M.D. on 03/25/2017 at 21:03 Approved by: Mark Hyde M.D. on 03/25/2017 at 21:05 . Assessment & Plan 56-year-old female with severe respiratory compromise due to smoking and drug use presents with an occlusive right DVT and severe acute kidney injury of unknown etiology. 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 -Followed by Dr. Francisco as out patient with hx of DIP per pathology report. -Patient continues to smoke although she has cut back recently -Patient continues on Hi-flow O2 and saturating in the 90's on FIO2 90% -Continue with Solu-medrol 60mg BID -Continue Cefepime -Start to taper down FIO2 and titrate to O2 sat of 88-92% -CXR 03/31 Pulmonary edema and/or diffuse bilateral pneumonia similar to prior examination. -Continue with PRN Albuterol Q2H -No need for Lasix at this time. I do not believe that respiratory failure is due to CHF at this time. The echo performed in January is not suggestive of a CHF process. Opacities seen on Xray noted by radiology as CHF are due to her DIP, please see recent CT chest for clarity on this issue. -Continue home medications Occlusive right DVT; present on admission; ongoing -3 days of increasing right lower extremity edema and pain with positive ultrasound for occlusive DVT -Dr. Rhodes consulted 03/28 and states that the patient would not benefit from EKOS -Heparin drip DC at 1700 on 03/28. Pt switched to Xarelto. Patient should take 15 mg each day for 2 weeks and then take 20 mg per day thereafter. - Respiratory compromise could possibly be due to PE, however treatment for this condition would be blood thinners which she is currently receiving. Severe acute kidney injury; present on admission; resolved -Somewhat of a mystery why the patient's creatinine skyrocketed initially; -Renal ultrasound demonstrated no hydronephrosis or obstruction -Doppler of the renal artery and vein, not done due to improved kidney status -Protein/creatinine 0.11, urine protein 19 urine random creatinine 168 -Nephrology consult; discussed this with Dr. 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 Francisco who has been seen multiple times due to her DIP. Patient continues to smoke although she has cut back recently -Patient placed on high flow oxygen. taper and titrate to PO2 88-92 - As patient has iodine allergy CT scan was considered and protocol initiated, however after discussion with pulmonary, who is consulted in this case, the decision was made to forego CTA based on the fact that the patient is currently on anticoagulant therapy and this would be the treatment of PE if it were to be found in her case. - Respiratory compromise likely secondary to an exacerbation of her DIP. Continue high-dose steroids as above. - Continue with Azithromycin for immunomodulation - Continue cefepime for empiric antibiotic coverage as pneumonia cannot be ruled out at this time. - Continue home medications Hypomagnesemia, not present on admission, active - Initial magnesium 1.9, - On 03/28 Magnesium continued to drop despite 6g IV, 2g given 03/29 - Magnesium within normal limits today - Continue to monitor Non-insulin dependent diabetes type II; present on admission; ongoing - Hold metformin - Blood sugars on the night of 03/29 trending due to initiation of corticosteroid therapy - Continue Lantus started to cover for excessive sugars due to corticosteroids. - Continue low-dose correctional Leukocytosis, not present on admission, active - White blood cells of increased as of 03/30 this is likely due to corticosteroids - Procalcitonin not impressive at 0.29 - Patient continues on cefepime, pneumonia cannot be ruled out at this time. - We will continue to monitor for signs of infection Depression/PTSD; present on admission; ongoing -Continue fluoxetine, lorazepam, prazosin, propanolol, hydroxyzine Hypertension -Continue lisinopril, hold furosemide CAD -Continue aspirin and atorvastatin Chronic pain -Continue methadone and gabapentin History of polysubstance abuse -Previously used heroin, marijuana, cocaine, and methamphetamines Nicotine dependence -Currently using tobacco. She has been educated numerous times -Nicotine patch prn Occlusive right DVT; present on admission; ongoing -Patient has hx of 3 days of increasing right lower extremity edema and pain with positive ultrasound for occlusive DVT -Dr. Rhodes consulted 03/28, not candidate for EKOS -Heparin drip DC at 1700 on 03/28. Pt switched to Xarelto. Patient should take 15 mg each day for 2 weeks and then take 20 mg per day thereafter. -Continue to monitor for signs of respiratory compromise, however unlikely this time. Severe acute kidney injury; present on admission; ongoing -Likely secondary to diarrhea combined with Metformin use per Nephrology consultation -Renal ultrasound demonstrated no hydronephrosis or obstruction -Doppler of the renal artery and vein, not done due to improved kidney status -Protein/creatinine 0.11, urine protein 19 urine random creatinine 168 -Immunology stduies to include FERNANDA with reflex, C3, C4, AntiGBM, pending Chronic Hepatitis C infection, Present on admission -Hep C viral load (previously treated) results show 1.5 million viral load Hypomagnesemia, not present on admission, resolved - current magnesium 1.9 - Continue to monitor Non-insulin dependent diabetes type II; present on admission; ongoing -Hold metformin -Continue low-dose correctional Hypertension -Continue lisinopril, hold furosemide CAD -Continue aspirin and atorvastatin History of polysubstance abuse -Previously used heroin, marijuana, cocaine, and methamphetamines Nicotine dependence -Currently using tobacco. She has been educated numerous times -Nicotine patch prn Disposition: As patient developed respiratory distress this morning patient will be discharged pending respiratory improvement. GI Prophylaxis: Not indicated VTE Prophylaxis: Other (Heparin drip) Resuscitation Status: CPR: Attempt Resuscitation Yuan Alvarez DO Mar 31, 2017 15:22 Non-insulin dependent diabetes type II; present on admission; ongoing -Hold metformin -Continue low-dose correctional Hypertension -Continue lisinopril, hold furosemide CAD -Continue aspirin and atorvastatin History of polysubstance abuse -Previously used heroin, marijuana, cocaine, and methamphetamines Nicotine dependence -Currently using tobacco. She has been educated numerous times -Nicotine patch prn Disposition: As patient developed respiratory distress this morning patient will be discharged pending respiratory improvement. GI Prophylaxis: Not indicated VTE Prophylaxis: Other (Heparin drip) Resuscitation Status: CPR: Attempt Resuscitation Yuan Alvarez DO Mar 31, 2017 15:22
--- NOTE | 2017-03-31 17:17 | NUR ---
Social Work: Continued d/c planning Data: Pt is on day 6 of hospitalization. EMR reviewed. Pt discussed in multidisciplinary rounds, MD state pt on high flow O2 and will remain in hospital likely at least 3 more days. [facility] will continue to follow for possible needs. Assessment: Pt who is independent at baseline, anticipated to be capable of self care at d/c. Plan: Pt will d/c home via POV when medically stable, in likely 3 days or more per MD. [facility] will continue to follow for possible needs. OSKAR Cee
--- NOTE | 2017-03-31 17:51 | NUR ---
Respiratory/pain Increased oxygen requirements with HF O2 NC at 90% and 50L. oxygen saturation 88-93% while resting butt decreased to low 80s with any activity and even while talking. Patient remained short of breath at rest MD aware- continue steroid treatment. Patient had audible coarse wheezes thorough upper lungs- DM aware- med neb treatments PRN with good improvement. Patient complained of right hip and back pain 5-8/10. Pain was frequently associated with increased anxiety. Patient was medicated with dialuded 1mg IV and Ativan 1mg PO PRN with good relive of symptoms.
--- NOTE | 2017-03-31 18:48 | PCM.PNMED ---
Subjective Date of Service Mar 31, 2017 Subjective Assessment: Events Overnight: No acute events overnight. ROS: Denies fever/chills, nausea/vomiting, headache, weakness, abdominal pain, chest pain, shortness of breath, increased swelling in hands or feet. Due to the patient being comatose, a review of systems was unable to be obtained. Exam Vital Signs Vital Sign - Last Date Time Temp Pulse Resp B/P Pulse Ox O2 Delivery O2 Flow Rate FiO2 03/31/17 16:41 36.9 88 26 161/91 92 HF O2 NC 90%/50L 03/31/17 12:06 50 90 Intake and Output 03/30/17 03/30/17 03/31/17 Cumulative From/Thru 15:00 23:00 07:00 03/25/17 15:55 - 03/31/17 06:19 Intake Total 850 ml 350 ml 48900 ml Output Total 450 ml 500 ml 72522 ml Balance 400 ml -150 ml 1646 ml Intake Oral 800 ml 300 ml 7208 ml IV Total 50 ml 50 ml 9378 ml Output Urine Total 450 ml 500 ml 29218 ml # Bowel Movements 0 0 Lab and Diagnostics Result Diagram: 03/31/17 0545 03/31/17 0545 Microbiology strep pneumo urine antigen negative X-Rays, CTs and MRIs Chest x-ray Mild edema pattern within the lung parenchyma, heart size at upper limits of normal, suspect mild acute exacerbation of chronic CHF. Dictated by: Lennox Melgoza M.D. on 03/25/2017 at 16:28 Renal ultrasound IMPRESSION: A post-renal cause is not identified for acute renal insufficiency. Dictated by: Mark Hyde M.D. on 03/25/2017 at 21:03 US Veinous Leg Duplex Unilateral IMPRESSION: Bifid popliteal vein present with occlusive venous thrombus within one of the vessels. Additional Diagnostics US RENAL SONOGRAM IMPRESSION: A post-renal cause is not identified for acute renal insufficiency. Dictated by: Mark Hyde M.D. on 03/25/2017 at 21:03 Approved by: Mark Hyde M.D. on 03/25/2017 at 21:05 . Assessment & Plan 56-year-old female with severe respiratory compromise due to smoking and drug use presents with an occlusive right DVT and severe acute kidney injury of unknown etiology. 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 -Followed by Dr. Francisco as out patient with hx of DIP per pathology report. -Patient continues to smoke although she has cut back recently -Patient continues on Hi-flow O2 and saturating in the upper 90's on FIO2 90% -Continue with Solu-medrol 60mg BID -Start to taper down FIO2 and titrate to O2 sat of 88-92% -No need for Lasix at this time. I do not believe that respiratory failure is due to CHF at this time. The echo performed in January is not suggestive of a CHF process. Opacities seen on Xray noted by radiology as CHF are due to her DIP, please see recent CT chest for clarity on this issue. -Continue home medications Occlusive right DVT; present on admission; ongoing -3 days of increasing right lower extremity edema and pain with positive ultrasound for occlusive DVT -Dr. Rhodes consulted 03/28 and states that the patient would not benefit from EKOS -Heparin drip DC at 1700 on 03/28. Pt switched to Xarelto. Patient should take 15 mg each day for 2 weeks and then take 20 mg per day thereafter. - Respiratory compromise could possibly be due to PE, however treatment for this condition would be blood thinners which she is currently receiving. Severe acute kidney injury; present on admission; resolved -Somewhat of a mystery why the patient's creatinine skyrocketed initially; -Renal ultrasound demonstrated no hydronephrosis or obstruction -Doppler of the renal artery and vein, not done due to improved kidney status -Protein/creatinine 0.11, urine protein 19 urine random creatinine 168 -Nephrology consult; discussed this with Dr. 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 Francisco who has been seen multiple times due to her DIP. Patient continues to smoke although she has cut back recently -Patient in respiratory distress this morning after complaining of shortness of breath and increasing chest pain. -ABG and chest x-rays ordered to evaluate respiratory compromise. Patient placed on high flow oxygen. taper and titrate to PO2 88-92 - As patient has iodine allergy CT scan was considered and protocol initiated, however after discussion with pulmonary, who is consulted in this case, the decision was made to forego CTA based on the fact that the patient is currently on anticoagulant therapy and this would be the treatment of PE if it were to be found in her case. - Pulmonology believes that this respiratory compromise is due to an exacerbation of her DIP. For this reason high-dose steroids were initiated. - Azithromycin initiated by pulmonology for immunomodulation - Continue cefepime for empiric antibiotic coverage as pneumonia cannot be ruled out at this time. - Continue home medications Hypomagnesemia, not present on admission, active - Initial magnesium 1.9, - On 03/28 Magnesium continued to drop despite 6g IV, 2g given 03/29 - Magnesium within normal limits today - Continue to monitor Non-insulin dependent diabetes type II; present on admission; ongoing - Hold metformin - Blood sugars on the night of 03/29 trending due to initiation of corticosteroid therapy - better blood sugar control today. - Long acting Lantus started to cover for excessive sugars due to corticosteroids. - Continue low-dose correctional Leukocytosis, not present on admission, active - White blood cells of increased as of 03/30 this is likely due to corticosteroids - Patient currently on antibiotics as pneumonia cannot be ruled out at this time. - We will continue to monitor for signs of infection Depression/PTSD; present on admission; ongoing -Continue fluoxetine, lorazepam, prazosin, propanolol, hydroxyzine Hypertension -Continue lisinopril, hold furosemide CAD -Continue aspirin and atorvastatin Chronic pain -Continue methadone and gabapentin History of polysubstance abuse -Previously used heroin, marijuana, cocaine, and methamphetamines Nicotine dependence -Currently using tobacco. She has been educated numerous times -Nicotine patch prn Of note: The patient has recently been seeking surgery for her right hip through orthopedics. She states that if she cannot have this surgery her quality of life is not such that she would be willing to continue on. She has recently been approved by Dr. Goode to undergo the surgery, however this was before the DVT and exacerbation of her DIP. I spoke with Dr. Goode on 03/29 about her current condition and he was reluctant to continue surgery as she is in this state. He states that she must be DVT free at time of surgery. And states that he would prefer that she be on no more than 10 mg of prednisone at the time of surgery. He states that even though he is willing to operate under these parameters, it is unlikely that anesthesiology would accept a case such as this. Dr. Coffey suggested that in the interim radiology guided cortisone injection may be attempted, and this may alleviate some pain that the patient experiences in the right hip. Update 03/30: Palliative was consulted on this case and began to discuss with the patient various options. After a very long discussion, the patient stated that she is not willing to "give up" at this moment and is willing to do what is necessary to be able to proceed towards surgery. I reiterated the difficulty of continuing on in this pattern and she reassured me that she was willing to face whatever difficulties may arise. She is aware that it may be several months before surgery can be obtained and is willing to endure whatever it takes in order to make that happen, including stopping smoking. I also discussed with her the option of having interventional radiology perform a steroid injection of the joint. She states that the last time that the joint was injected she subsequently suffered a stroke, and for this reason she is concerned about undergoing another injection. I stated that this option would remain open to her if she should change her mind. Occlusive right DVT; present on admission; ongoing -Patient has hx of 3 days of increasing right lower extremity edema and pain with positive ultrasound for occlusive DVT -Dr. Rhodes consulted 03/28, not candidate for EKOS -Heparin drip DC at 1700 on 03/28. Pt switched to Xarelto. Patient should take 15 mg each day for 2 weeks and then take 20 mg per day thereafter. -Continue to monitor for signs of respiratory compromise, however unlikely this time. Severe acute kidney injury; present on admission; ongoing -Likely secondary to diarrhea combined with Metformin use per Nephrology consultation -Renal ultrasound demonstrated no hydronephrosis or obstruction -Doppler of the renal artery and vein, not done due to improved kidney status -Protein/creatinine 0.11, urine protein 19 urine random creatinine 168 -Immunology stduies to include FERNANDA with reflex, C3, C4, AntiGBM, pending Chronic Hepatitis C infection, Present on admission -Hep C viral load (previously treated) results show 1.5 million viral load Hypomagnesemia, not present on admission, resolved - current magnesium 1.9 - Continue to monitor Non-insulin dependent diabetes type II; present on admission; ongoing -Hold metformin -Continue low-dose correctional Hypertension -Continue lisinopril, hold furosemide CAD -Continue aspirin and atorvastatin History of polysubstance abuse -Previously used heroin, marijuana, cocaine, and methamphetamines Nicotine dependence -Currently using tobacco. She has been educated numerous times -Nicotine patch prn Disposition: As patient developed respiratory distress this morning patient will be discharged pending respiratory improvement. GI Prophylaxis: Not indicated VTE Prophylaxis: Other (Heparin drip) Resuscitation Status: CPR: Attempt Resuscitation ,David Kirby Mar 31, 2017 18:48
[2017-03-31] MEDS: Insulin GLARgine 100 Unit/mL Syringe SUBQ SCH (20:05)
[2017-04-01] VITALS (11 sets, daily range): BP systolic 150–172; BP diastolic 60–80; PULSE 80–94; RESP 14–22; O2SAT 88–95
[2017-04-01] MEDS: LORazepam 0.5 mg Tablet PO PRN ×4 (01:22→23:52)
[2017-04-01] MEDS: HYDROmorphone 0.5 mg/0.5 mL iSecure Syringe IVPUSH PRN ×3 (01:23→18:36)
[2017-04-01 02:42] LABS: Mean Corpuscular Hemoglobin 27.6 pg (27.0-35.0); Mean Corpuscular Volume 86.2 fL (81-100)
--- NOTE | 2017-04-01 06:02 | NUR ---
Mentation/Respiratory A/O, with some intermittent confusion. Reorients with encouragement. Maintained on bed rest to support SPO2. Exhibits increase SOB & decrease SPO2 with activity. Medication given for pain and anxiety, pt. able to rest with eyes closed. Receiving High Flow o2 managed by RT. Cooperative with care, states no further needs at this time. VSS. Tele : SR in 90s to 100s. Report given to on coming RN.
--- NOTE | 2017-04-01 07:40 | PCM.PNMED ---
Subjective Date of Service Apr 01, 2017 Subjective Restless night SpO2 marginal despite FiO2 0.9 Cough productive Denies chest pain, fever, chills Exam Vital Signs Vital Sign - Last Date Time Temp Pulse Resp B/P Pulse Ox O2 Delivery O2 Flow Rate FiO2 04/01/17 04:49 36.8 88 14 159/77 92 high flow 04/01/17 04:49 50 90 Intake and Output 03/31/17 03/31/17 04/01/17 Cumulative From/Thru 15:00 23:00 07:00 03/25/17 15:55 - 04/01/17 04:49 Intake Total 1150 ml 600 ml 26176 ml Output Total 1800 ml 700 ml 83428 ml Balance -650 ml -100 ml 896 ml Intake Oral 1100 ml 550 ml 8858 ml IV Total 50 ml 50 ml 9478 ml Output Urine Total 1800 ml 700 ml 78015 ml # Bowel Movements 0 Exam Obese, flushed appearing woman in NAD, speaks in short sentences Lungs Decreased breath sounds, Scattered rhonchi/wheezes CV RRR, no m/g/r Ext Warm, trace LE edema Lab and Diagnostics Result Diagram: 04/01/17 0230 04/01/17 0230 Microbiology strep pneumo urine antigen negative X-Rays, CTs and MRIs Chest x-ray Mild edema pattern within the lung parenchyma, heart size at upper limits of normal, suspect mild acute exacerbation of chronic CHF. Dictated by: Lennox Melgoza M.D. on 03/25/2017 at 16:28 Renal ultrasound IMPRESSION: A post-renal cause is not identified for acute renal insufficiency. Dictated by: Mark Hyde M.D. on 03/25/2017 at 21:03 US Veinous Leg Duplex Unilateral IMPRESSION: Bifid popliteal vein present with occlusive venous thrombus within one of the vessels. Additional Diagnostics US RENAL SONOGRAM IMPRESSION: A post-renal cause is not identified for acute renal insufficiency. Dictated by: Mark Hyde M.D. on 03/25/2017 at 21:03 Approved by: Mark Hyde M.D. on 03/25/2017 at 21:05 . Assessment & Plan IMP Acute on chronic hypoxemic respiratory failure. Acute exacerbation of her biopsy proven DIP likely plays the major role along with some component of CHF due to diastolic disease. In addition, she may have a pneumonia and is on empiric abx. Presumably she has been tested for HIV multiple times however we might need to consider opportunistic infections such as pneumocystis given her long exposure to significant doses of steroids. DVT Hep C NIDDM Diastolic heart disease H/O polysubstance abuse REC Diurese sputum culture ( I was under the impression that this had been obtained but can' t find any results in Micro) Beta-d glucan assay ( Fungitell ) Continue high dose steroids and empiric cefepime GI Prophylaxis: Not indicated VTE Prophylaxis: Other (Heparin drip) Resuscitation Status: CPR: Attempt Resuscitation Herb Reed MD Apr 01, 2017 07:40
[2017-04-01] MEDS: Insulin LISPRO 300 Unit/3 mL Inj SUBQ SCH ×4 (08:00→20:03)
[2017-04-01] MEDS ORDERED: Furosemide 10 mg/mL 4 mL Inj IVPUSH ONE (08:05)
[2017-04-01] MEDS: oxyCODONE-Acetamin 5-325 mg Tablet PO PRN ×4 (08:36→23:56)
[2017-04-01] MEDS: MethylprednisoLONE Sodium Succinate 40 mg/mL Inj IVPUSH SCH ×2 (08:38→19:55)
[2017-04-01] MEDS: Cefepime 1,000 MG in Dextrose 5% Minibag Plus 50 ML IV SCH ×2 (08:39→20:08)
[2017-04-01] MEDS: Polyethylene Glycol (PEG) 17 Gm Powder PO PRN (08:39)
--- NOTE | 2017-04-01 19:38 | NUR ---
Anxiety/Pain/O2 Cardiac: Pt denies CP, Tele: SR 70-100 Resp: Pt reports SOB with exertion, SPO2 low 90s on high flow 50L 85% FIO2. Pt desats down to mid 70s and 68 once with exertion. GI/: Pt reports no BM for 4 days, miralax and senna given. Neuro: A&Ox3, HAILE, pt up ambulating in room with PT this AM using a four-wheeled walker. pt reports anxiety for which PRN meds are available. Pt does have moments of confusion and foggy memory. PRN meds seem adequate for pain control, pt falls asleep often, but pt reports constant pain.
[2017-04-01] MEDS: Insulin GLARgine 100 Unit/mL Syringe SUBQ SCH (20:01)
--- NOTE | 2017-04-01 20:09 | PCM.PNMED ---
Subjective Date of Service Apr 01, 2017 Subjective Assessment: Patient continues on high flow oxygen. She states that she does not like the steroids which are given. Again we discussed the possibility of hospice for the option to continue therapy as currently prescribed. She states that she wants to continue therapy with goals of healing. Events Overnight: No acute events overnight. ROS: Shortness of breath. Denies fever/chills, nausea/vomiting, headache, weakness, abdominal pain, chest pain, increased swelling in hands or feet. Exam Vital Signs Vital Sign - Last Date Time Temp Pulse Resp B/P Pulse Ox O2 Delivery O2 Flow Rate FiO2 04/01/17 19:46 36.3 90 21 172/73 91 high flow 04/01/17 13:59 85 04/01/17 07:48 50 Intake and Output 03/31/17 03/31/17 04/01/17 Cumulative From/Thru 15:00 23:00 07:00 03/25/17 15:55 - 04/01/17 04:49 Intake Total 1150 ml 600 ml 01122 ml Output Total 1800 ml 700 ml 89679 ml Balance -650 ml -100 ml 896 ml Intake Oral 1100 ml 550 ml 8858 ml IV Total 50 ml 50 ml 9478 ml Output Urine Total 1800 ml 700 ml 75174 ml # Bowel Movements 0 Exam General: Mild distress, well-developed, well-nourished HEENT: Normocephalic, atraumatic. External ears without defect. Pupils equal, round, and reactive to light and accommodation. Anicteric sclerae, moist conjunctivae. Cardiovascular: Regular rate and rhythm with no murmurs, rubs, or gallops appreciated Pulmonary: Coarse breath sounds throughout with bilateral crackles; and inspiratory/expiratory wheezing increased respiratory effort. Currently on high flow oxygen. Abdomen: Bowel tones present. Soft, obese. nontender, nondistended. Extremities: No clubbing, cyanosis, mild erythema of the right knee. mild edema of the right lower extremity compared to the left. Skin: Normal temperature, turgor, and texture; no rash, ulcers, or subcutaneous nodules appreciated. Neurological: Cranial nerves grossly intact. Reflexes, coordination, and sensory function within normal limits. Normal muscle strength, tone, and bulk. Psychiatric: Depressed mood and affect. Alert and oriented to person, place, and time Lab and Diagnostics Result Diagram: 04/01/17 0230 04/01/17 0230 Microbiology strep pneumo urine antigen negative X-Rays, CTs and MRIs Chest x-ray Mild edema pattern within the lung parenchyma, heart size at upper limits of normal, suspect mild acute exacerbation of chronic CHF. Dictated by: Lennox Melgoza M.D. on 03/25/2017 at 16:28 Renal ultrasound IMPRESSION: A post-renal cause is not identified for acute renal insufficiency. Dictated by: Mark Hyde M.D. on 03/25/2017 at 21:03 US Veinous Leg Duplex Unilateral IMPRESSION: Bifid popliteal vein present with occlusive venous thrombus within one of the vessels. Additional Diagnostics US RENAL SONOGRAM IMPRESSION: A post-renal cause is not identified for acute renal insufficiency. Dictated by: Mark Hyde M.D. on 03/25/2017 at 21:03 Approved by: Mark Hyde M.D. on 03/25/2017 at 21:05 . Assessment & Plan 56-year-old female with severe respiratory compromise due to smoking and drug use presents with an occlusive right DVT and severe acute kidney injury of unknown etiology. 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 -Followed by Dr. Francisco as out patient with hx of DIP per pathology report. -Patient continues to smoke although she has cut back recently -Patient continues on Hi-flow O2 and saturating in the upper 90's on FIO2 80-90% -Continue with Solu-medrol 60mg BID -Start to taper down FIO2 and titrate to O2 sat of 88-92% -I do not believe that respiratory failure is due to CHF at this time. The echo performed in January is not suggestive of a CHF process. Opacities seen on Xray noted by radiology as CHF are due to her DIP, please see recent CT chest for clarity on this issue. - Patient given 40 of Lasix today as a trial to see if this improves her shortness of breath however I do not expect dramatic results. -Continue home medications Occlusive right DVT; present on admission; ongoing -3 days of increasing right lower extremity edema and pain with positive ultrasound for occlusive DVT -Dr. Rhodes consulted 03/28 and states that the patient would not benefit from EKOS -Heparin drip DC at 1700 on 03/28. Pt switched to Xarelto. Patient should take 15 mg each day for 2 weeks and then take 20 mg per day thereafter. - Respiratory compromise could possibly be due to PE, however treatment for this condition would be blood thinners which she is currently receiving. Severe acute kidney injury; present on admission; resolved -Somewhat of a mystery why the patient's creatinine skyrocketed initially; -Renal ultrasound demonstrated no hydronephrosis or obstruction -Doppler of the renal artery and vein, not done due to improved kidney status -Protein/creatinine 0.11, urine protein 19 urine random creatinine 168 -Nephrology consult; discussed this with Dr. 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 Francisco who has been seen multiple times due to her DIP. Patient continues to smoke although she has cut back recently -Patient in respiratory distress on 03/29 after complaining of shortness of breath and increasing chest pain. -ABG and chest x-rays ordered to evaluate respiratory compromise. Patient placed on high flow oxygen. taper and titrate to PO2 88-92 - As patient has iodine allergy CT scan was considered and protocol initiated, however after discussion with pulmonary, who is consulted in this case, the decision was made to forego CTA based on the fact that the patient is currently on anticoagulant therapy and this would be the treatment of PE if it were to be found in her case. - Pulmonology believes that this respiratory compromise is due to an exacerbation of her DIP. For this reason high-dose steroids were initiated. - Azithromycin initiated by pulmonology for immunomodulation - Continue cefepime for empiric antibiotic coverage as pneumonia cannot be ruled out at this time. - Continue home medications Hypomagnesemia, not present on admission, active - Initial magnesium 1.9, - On 03/28 Magnesium continued to drop despite 6g IV, 2g given 03/29 - Magnesium within normal limits today - Continue to monitor Non-insulin dependent diabetes type II; present on admission; ongoing - Hold metformin - Blood sugars on the night of 03/29 trending due to initiation of corticosteroid therapy - better blood sugar control today. - Long acting Lantus started to cover for excessive sugars due to corticosteroids. - Continue low-dose correctional Leukocytosis, not present on admission, active - White blood cells of increased as of 03/30 this is likely due to corticosteroids - Patient currently on antibiotics as pneumonia cannot be ruled out at this time. - We will continue to monitor for signs of infection Depression/PTSD; present on admission; ongoing -Continue fluoxetine, lorazepam, prazosin, propanolol, hydroxyzine Hypertension -Continue lisinopril, hold furosemide CAD -Continue aspirin and atorvastatin Chronic pain -Continue methadone and gabapentin History of polysubstance abuse -Previously used heroin, marijuana, cocaine, and methamphetamines Nicotine dependence -Currently using tobacco. She has been educated numerous times -Nicotine patch prn Of note: The patient has recently been seeking surgery for her right hip through orthopedics. She states that if she cannot have this surgery her quality of life is not such that she would be willing to continue on. She has recently been approved by Dr. Goode to undergo the surgery, however this was before the DVT and exacerbation of her DIP. I spoke with Dr. Goode on 03/29 about her current condition and he was reluctant to continue surgery as she is in this state. He states that she must be DVT free at time of surgery. And states that he would prefer that she be on no more than 10 mg of prednisone at the time of surgery. He states that even though he is willing to operate under these parameters, it is unlikely that anesthesiology would accept a case such as this. Dr. Coffey suggested that in the interim radiology guided cortisone injection may be attempted, and this may alleviate some pain that the patient experiences in the right hip. Update 03/30: Palliative was consulted on this case and began to discuss with the patient various options. After a very long discussion, the patient stated that she is not willing to "give up" at this moment and is willing to do what is necessary to be able to proceed towards surgery. I reiterated the difficulty of continuing on in this pattern and she reassured me that she was willing to face whatever difficulties may arise. She is aware that it may be several months before surgery can be obtained and is willing to endure whatever it takes in order to make that happen, including stopping smoking. I also discussed with her the option of having interventional radiology perform a steroid injection of the joint. She states that the last time that the joint was injected she subsequently suffered a stroke, and for this reason she is concerned about undergoing another injection. I stated that this option would remain open to her if she should change her mind. GI Prophylaxis: Not indicated VTE Prophylaxis: Other (Heparin drip) Resuscitation Status: CPR: Attempt Resuscitation Attending Statement The patient was seen and examined together with Dr. Levi on 04/01/2017 and I agree with the history, exam and plan as outlined in the note above. . David Levi DO Apr 01, 2017 20:09 Harjinder Lang MD Apr 02, 2017 17:40
[2017-04-02] VITALS (12 sets, daily range): BP systolic 156–183; BP diastolic 81–96; PULSE 77–91; RESP 14–23; O2SAT 88–97
[2017-04-02] MEDS: HYDROmorphone 0.5 mg/0.5 mL iSecure Syringe IVPUSH PRN ×3 (02:25→18:42)
[2017-04-02 03:01] LABS: BASOPHILS % (AUTO) 0.1 % (0-3); EOSINOPHILS % (AUTO) 0.1 % (0-5); MONOCYTES % (AUTO) 4.3 % (4-12); Mean Corpuscular Hemoglobin 27.4 pg (27.0-35.0); NEUTROPHILS % (AUTO) 86.1 % (40-74); Platelet Count 280 bil/L (150-400)
[2017-04-02] MEDS: oxyCODONE-Acetamin 5-325 mg Tablet PO PRN ×3 (04:37→16:36)
--- NOTE | 2017-04-02 06:27 | NUR ---
Respiratory/ mentation Pt remains on highflow overnight. For majority of the night settings at 50L and 80%- sats high 80s-low 90s. Pt would desat with very minimal activity. Around 0300 pt Sp02 started to increase to the mid- high 90s. RT made aware. Fi02 Titrated to maintain goal spo2 of 88-92%. Setting currently at 65% and 50L. Pt alert and oreintedx3- however when awakens from deep sleep can be forgetful and disoriented, reorients easily.
[2017-04-02] MEDS: Insulin LISPRO 300 Unit/3 mL Inj SUBQ SCH ×4 (08:00→19:49)
--- NOTE | 2017-04-02 08:04 | DRSVH ---
PROCEDURE: X-RAY CHEST ONE VIEW, PORTABLE ([id number]) INDICATIONS: pneumonia TECHNIQUE: One view of the chest was acquired. COMPARISON: [facility], CR, XR CHEST 1VW (PORTABLE), 03/31/2017, 8:26. [facility], CR, XR CHEST 1VW (PORTABLE), 03/29/2017, 6:48. FINDINGS: Surgical changes and devices: None. Lungs and pleura: No pleural effusions or pneumothorax. Lungs are abnormal with a generalized pulmo nary edema pattern, potentially cardiogenic in origin but atypical pneumonia/viral pneumonia also cou ld explain this appearance as could ARDS. Mediastinum: Mediastinal contours appear normal. Heart size is moderately enlarged. Bones and chest wall: No suspicious bony lesions. Overlying soft tissues appear unremarkable. IMPRESSION: Generalized pulmonary edema pattern, statistically most likely cardiogenic in origin. Mo derate cardiomegaly. Dictated by: Lennox Melgoza M.D. on 04/02/2017 at 8:00 Approved by: Lennox Melgoza M.D. on 04/02/2017 at 8:01
[2017-04-02] MEDS: MethylprednisoLONE Sodium Succinate 40 mg/mL Inj IVPUSH SCH ×2 (09:05→19:51)
[2017-04-02] MEDS: Cefepime 1,000 MG in Dextrose 5% Minibag Plus 50 ML IV SCH ×2 (09:05→19:52)
[2017-04-02] MEDS: Polyethylene Glycol (PEG) 17 Gm Powder PO PRN ×2 (09:18→19:42)
--- NOTE | 2017-04-02 11:38 | PCM.PNMED ---
Subjective Date of Service Apr 02, 2017 Subjective 56 yo morbidly obese woman with long history of IV opiate abuse and biopsy proven DIP. She was recently diagnosed with Rt leg DVT and is oral anticoagulation. While she normally uses home O2 at 2L/min she has required HiFlow O2 to maintain SpO2 above 90% here. Her CXR has shown diffuse ground glass pattern and her BNP has been significantly elevated despite daily Lasix. She is on empiric cefepime for possible pneumonia given her leukocytosis and Lt basal infiltrate but has been unable to provide a sputum for culture. Her FiO2 was able to be decreased to 70% some time yesterday but this morning I find her in bed with SpO2 83-85% on FiO2 0.75. She appears comfortable and speaks in full sentences. She has undergone HIV testing within the last few months and it remains nonreactive. Denies fever, chills, hemoptysis, chest pain. Has some questions about home hospice and asks whether it's an appropriate time to transition to that. I told her that we are still working to improve her lung function and oxygenation back to her baseline but at some point we may need to change goals.. Exam Vital Signs Vital Sign - Last Date Time Temp Pulse Resp B/P Pulse Ox O2 Delivery O2 Flow Rate FiO2 04/02/17 10:43 80 04/02/17 08:42 23 90 Nasal Cannula 50 70 04/02/17 08:12 36.6 183/82 Intake and Output 04/01/17 04/01/17 04/02/17 Cumulative From/Thru 15:00 23:00 07:00 03/25/17 15:55 - 04/02/17 06:17 Intake Total 1250 ml 450 ml 00571 ml Output Total 1750 ml 800 ml 22006 ml Balance -500 ml -350 ml 46 ml Intake Oral 1200 ml 400 ml 06338 ml IV Total 50 ml 50 ml 9578 ml Output Urine Total 1750 ml 800 ml 06518 ml # Bowel Movements 0 Exam Flushed, obese woman in NAD, Lungs Decreased breath sounds. Scattered crackles rhonchi, NO wheezes CV Distant HT's, no m/g/r Ext tr LE edema, no cyanosis IVs and Medications Medications Reviewed: Medications were reviewed in detail Lab and Diagnostics Result Diagram: 04/02/17 0245 04/02/17 0245 Microbiology strep pneumo urine antigen negative X-Rays, CTs and MRIs Chest x-ray Mild edema pattern within the lung parenchyma, heart size at upper limits of normal, suspect mild acute exacerbation of chronic CHF. Dictated by: Lennox Melgoza M.D. on 03/25/2017 at 16:28 Renal ultrasound IMPRESSION: A post-renal cause is not identified for acute renal insufficiency. Dictated by: Mark Hyde M.D. on 03/25/2017 at 21:03 US Veinous Leg Duplex Unilateral IMPRESSION: Bifid popliteal vein present with occlusive venous thrombus within one of the vessels. Additional Diagnostics US RENAL SONOGRAM IMPRESSION: A post-renal cause is not identified for acute renal insufficiency. Dictated by: Mark Hyde M.D. on 03/25/2017 at 21:03 Approved by: Mark Hyde M.D. on 03/25/2017 at 21:05 . Assessment & Plan IMP Acute on chronic hypoxemic respiratory failure. DIP and CHF due to diastolic disease both contribute along with a possible pneumonia. Fortunately, her WBC is declining and there are no lobar infiltrates on today's CXR which continues to show diffuse alveolar filling. We have not excluded a PE but a positive CTPA would not probably alter our management as she is already anticoagulated on rivaroxaban for her RLE DVT. She needs aggressive pulmonary toilet. Hyperkalemia REC IV steroids, empiric cefepime. 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
[2017-04-02] MEDS: LORazepam 0.5 mg Tablet PO PRN ×2 (12:51→19:40)
[2017-04-02] MEDS ORDERED: Furosemide 10 mg/mL 4 mL Inj IVPUSH ONE (17:45)
--- NOTE | 2017-04-02 17:59 | PCM.PNMED ---
Subjective Date of Service Apr 02, 2017 Subjective Sonia Casarez is a 56-year-old lady with severe pulmonary compromise due to DIP , COPD, diastolic congestive heart failure, and long-term nicotine dependence admitted for treatment of right lower extremity DVT and currently suffering from acute exacerbation of pulmonary problems and congestive heart failure. Patient reported that she is feeling somewhat better with adequately controlled right hip pain. Patient denied any problems with eating, drinking, urination, or defecation. She continues to become severely short of breath with any activity. No significant overnight events reported by nursing. . Exam Vital Signs Vital Sign - Last Date Time Temp Pulse Resp B/P Pulse Ox O2 Delivery O2 Flow Rate FiO2 04/02/17 16:25 36.5 79 18 171/86 94 high flow 75 04/02/17 08:42 50 Intake and Output 04/01/17 04/01/17 04/02/17 Cumulative From/Thru 15:00 23:00 07:00 03/25/17 15:55 - 04/02/17 06:17 Intake Total 1250 ml 450 ml 23435 ml Output Total 1750 ml 800 ml 28870 ml Balance -500 ml -350 ml 46 ml Intake Oral 1200 ml 400 ml 50891 ml IV Total 50 ml 50 ml 9578 ml Output Urine Total 1750 ml 800 ml 59701 ml # Bowel Movements 0 IVs and Medications Medications Reviewed: Medications were reviewed in detail Lab and Diagnostics Result Diagram: 04/02/17 0245 04/02/17 0245 Microbiology Streptococcus pneumoniae urine antigen negative X-Rays, CTs and MRIs Chest x-ray X-RAY CHEST ONE VIEW, PORTABLE IMPRESSION: Generalized pulmonary edema pattern, statistically most likely cardiogenic in origin. Moderate cardiomegaly. Dictated by: Lennox Melgoza M.D. on 04/02/2017 at 8:00 Renal ultrasound IMPRESSION: A post-renal cause is not identified for acute renal insufficiency. Dictated by: Mark Hyde M.D. on 03/25/2017 at 21:03 US Veinous Leg Duplex Unilateral IMPRESSION: Bifid popliteal vein present with occlusive venous thrombus within one of the vessels. Additional Diagnostics US RENAL SONOGRAM IMPRESSION: A post-renal cause is not identified for acute renal insufficiency. Dictated by: Mark Hyde M.D. on 03/25/2017 at 21:03 Approved by: Mark Hyde M.D. on 03/25/2017 at 21:05 . Assessment & Plan Sonia Casarez is a 56-year-old lady with severe pulmonary compromise due to DIP , COPD, diastolic congestive heart failure, and long-term nicotine dependence admitted for treatment of right lower extremity DVT and currently suffering from acute exacerbation of pulmonary problems and congestive heart failure. Acute on chronic respiratory failure secondary, present on admission. Ongoing. -Secondary to DIP, COPD, and pulmonary edema secondary to congestive heart failure -Continue current treatment plan under the direction of Pulmonology (please see today's note from Pulmonology for further details); slight improvement in terms of decreased oxygen requirements -Continuing aggressive diuresis with IV furosemide Occlusive right DVT, present on admission. Ongoing. -Likely secondary to decreased mobility secondary to right hip pain -Continue therapy with Xarelto Acute kidney failure, present on admission. Resolved. -Unclear etiology -Laboratory studies pending -Continue to monitor closely Pulmonary issues, including DIP, COPD, pulmonary edema, pneumonia, present on admission. Ongoing. -Continuing therapy with IV glucocorticoid, cefepime, high flow oxygen, mobilization, incentive spirometry/Acapella -Wean as tolerated, under the direction of Pulmonology Hyperkalemia, not present on admission. Active. -Ongoing diuresis with IV furosemide -Continue to monitor closely Non-insulin dependent diabetes type II, present on admission. Ongoing grade -Continue to hold metformin -Continue insulin for blood sugar control with systemic glucocorticoid -Continue to monitor closely Leukocytosis, not present on admission. Active. -Likely secondary to pneumonia and/or glucocorticoid use -Improving; continue to monitor closely Depression/PTSD, present on admission. Ongoing. -Continue fluoxetine, lorazepam, prazosin, propanolol, hydroxyzine Hypertension, chronic. Slightly labile and elevated. -Continue lisinopril and diuresis with loop diuretic Coronary artery disease, present on admission. Stable. -Continue aspirin and atorvastatin Chronic pain, present on admission. Stable. -Continue methadone and gabapentin History of polysubstance abuse. Stable. -Previously used heroin, marijuana, cocaine, and methamphetamines Nicotine dependence, present on admission. Stable. -Currently using tobacco. She has been educated numerous times -Nicotine patch as needed Of note: The patient has recently been seeking surgery for her right hip through orthopedics. She states that if she cannot have this surgery her quality of life is not such that she would be willing to continue on. She has recently been approved by Dr. Goode to undergo the surgery, however this was before the DVT and exacerbation of her DIP. I spoke with Dr. Goode on 03/29 about her current condition and he was reluctant to continue surgery as she is in this state. He states that she must be DVT free at time of surgery. And states that he would prefer that she be on no more than 10 mg of prednisone at the time of surgery. He states that even though he is willing to operate under these parameters, it is unlikely that anesthesiology would accept a case such as this. Dr. Coffey suggested that in the interim radiology guided cortisone injection may be attempted, and this may alleviate some pain that the patient experiences in the right hip. Update 03/30: Palliative was consulted on this case and began to discuss with the patient various options. After a very long discussion, the patient stated that she is not willing to "give up" at this moment and is willing to do what is necessary to be able to proceed towards surgery. I reiterated the difficulty of continuing on in this pattern and she reassured me that she was willing to face whatever difficulties may arise. She is aware that it may be several months before surgery can be obtained and is willing to endure whatever it takes in order to make that happen, including stopping smoking. I also discussed with her the option of having interventional radiology perform a steroid injection of the joint. She states that the last time that the joint was injected she subsequently suffered a stroke, and for this reason she is concerned about undergoing another injection. I stated that this option would remain open to her if she should change her mind. Disposition: Discharged to home when patient is able to wean off high flow oxygen. . Pain Evaluation: Adequate Pain Control GI Prophylaxis: Not indicated VTE Prophylaxis: Other (Heparin drip) Resuscitation Status: CPR: Attempt Resuscitation Harjinder Lang MD Apr 02, 2017 17:59 Pain Evaluation: Adequate Pain Control GI Prophylaxis: Not indicated VTE Prophylaxis: Other (Heparin drip) Resuscitation Status: CPR: Attempt Resuscitation Harjinder Lang MD Apr 02, 2017 17:59
--- NOTE | 2017-04-02 19:05 | NUR ---
High Flow/pain Cardiac: Pt denies CP, Tele: SR 70-100 Resp: Pt reports SOB with exertion and at times when at rest. SPO2 low 88-91% on high flow 50L 75% FIO2. Pt desats quickly down to mid 70s with exertion or when she removes the high flow to blow her nose. GI/: pt denies n/vPt reports no BM for 4 days, miralax and senna given this AM. Neuro: A&Ox3, HAILE, pt reports anxiety for which PRN meds are available and effective. Pt reports constant hip pain 8/10. Pt reports pain as "8/10 I hurt" to "8/10 I'm ok".
[2017-04-02] MEDS: Insulin GLARgine 100 Unit/mL Syringe SUBQ SCH (19:50)
[2017-04-03] VITALS (13 sets, daily range): BP systolic 131–169; BP diastolic 67–87; PULSE 78–104; RESP 14–22; O2SAT 88–94
[2017-04-03 03:03] LABS: BASOPHILS % (AUTO) 0 % (0-3); EOSINOPHILS % (AUTO) 0 % (0-5); MONOCYTES % (AUTO) 1 % (4-12); Mean Corpuscular Hemoglobin 27.2 pg (27.0-35.0); Mean Corpuscular Volume 85.4 fL (81-100); NEUTROPHILS % (AUTO) 86 % (40-74); Platelet Count 313 bil/L (150-400)
[2017-04-03] MEDS: HYDROmorphone 0.5 mg/0.5 mL iSecure Syringe IVPUSH PRN ×3 (06:29→20:42)
[2017-04-03] MEDS: LORazepam 0.5 mg Tablet PO PRN ×3 (06:42→20:25)
[2017-04-03] MEDS: oxyCODONE-Acetamin 5-325 mg Tablet PO PRN ×3 (06:42→22:36)
[2017-04-03] MEDS: Insulin LISPRO 300 Unit/3 mL Inj SUBQ SCH ×4 (07:35→20:48)
[2017-04-03] MEDS: Polyethylene Glycol (PEG) 17 Gm Powder PO PRN (08:24)
[2017-04-03] MEDS: MethylprednisoLONE Sodium Succinate 40 mg/mL Inj IVPUSH SCH ×2 (08:26→20:25)
[2017-04-03] MEDS: Cefepime 1,000 MG in Dextrose 5% Minibag Plus 50 ML IV SCH ×2 (09:12→20:24)
--- NOTE | 2017-04-03 09:32 | DRSVH ---
PROCEDURE: CT CHEST WITHOUT CONTRAST ([id number]) INDICATIONS: Diffuse alveolar infiltrates, chf/pna TECHNIQUE: Noncontrast 5 mm thick sections acquired from the pulmonary apices to the posterior costophrenic angl es. 7 mm thick coronal and sagittal MIP reformats were then acquired. For radiation dose reduction, the following was used: automated exposure control, adjustment of mA and/or kV according to patient size. COMPARISON: [facility], CR, XR CHEST 1VW (PORTABLE), 04/02/2017, 4:58. FINDINGS: Image quality: Good Lungs and pleura: There are diffuse increased interstitial markings without any associated pleural e ffusion in this patient. The appearance is not that of congestive failure. Mediastinum: Heart size is normal. No pericardial effusion. No mediastinal adenopathy by size crit eria. Thoracic aorta and central pulmonary arteries are normal in size. Esophagus is normal in peter anabella. No hiatal hernia. Bones and chest wall: No suspicious bony lesions. No vertebral body compression fractures. No axil jesus or supraclavicular adenopathy by size criteria. Thyroid gland is within normal limits. Abdomen: Visualized upper abdominal solid organs and bowel loops appear normal in the absence of con trast. IMPRESSION: Diffuse lung disease. The appearance is that of infection. The appearance is atypical how ever. If the patient is immunocompromised this could be due to pneumocystis or some allergic phenomen on. There is no evidence to suggest congestive failure. Dictated by: Jens Jarrell M.D. on 04/03/2017 at 9:24 Approved by: Jens Jarrell M.D. on 04/03/2017 at 9:30
[2017-04-03] MEDS ORDERED: Furosemide 10 mg/mL 10 mL Inj IVPUSH ONE (10:15)
--- NOTE | 2017-04-03 10:35 | NUR ---
Social Work: Continued d/c planning Data: Pt is on day 9 of hospitalization. EMR reviewed, pt discussed in multidisciplinary rounds. states pt still on high flow O2 and will d/c when O2 needs go down. No d/c planning needs anticipated at this time. TAX SERVICES MANAGER will continue to follow if needs arise. Assessment: Pt on CARSON at baseline, currently at baseline. Plan: Pt will d/c home via POV when medically stable with CARSON. No d/c planning needs anticipated at this time. TAX SERVICES MANAGER will continue to follow if needs arise. OSKAR Cee
--- NOTE | 2017-04-03 14:27 | PCM.PNMED ---
Subjective Date of Service Apr 03, 2017 Subjective Sonia Casarez is a 56-year-old lady with severe pulmonary compromise due to DIP , COPD, diastolic congestive heart failure, and long-term nicotine dependence admitted for treatment of right lower extremity DVT and currently suffering from acute exacerbation of pulmonary problems and congestive heart failure. Patient reports some minimal improvement in her respiratory status, she continues to complain of dyspnea on any kind of exertion. She further related that her concern around ongoing prednisone therapy is the facial changes it induces and would to transition off Steroids as soon as possible. No significant overnight events. Exam Vital Signs Vital Sign - Last Date Time Temp Pulse Resp B/P Pulse Ox O2 Delivery O2 Flow Rate FiO2 04/03/17 12:31 36.7 88 14 152/82 88 high flow 60 04/03/17 08:30 50 Intake and Output 04/02/17 04/02/17 04/03/17 Cumulative From/Thru 15:00 23:00 07:00 03/25/17 15:55 - 04/03/17 06:53 Intake Total 1198 ml 250 ml 98054 ml Output Total 1350 ml 1950 ml 53901 ml Balance -152 ml -1700 ml -1806 ml Intake Oral 1154 ml 200 ml 17345 ml IV Total 44 ml 50 ml 9672 ml Output Urine Total 1350 ml 1950 ml 49479 ml # Bowel Movements 0 Exam Gen: A/O x3 pleasant cooperative woman on High flow nasal cannula Neck: Supple, non tender,, Full ROM HEENT: PERRL, EOMI, no scleral icterus, no conjunctival pallor CV: RRR, no murmurs rubs or gallops Resp: Diffusely coarse breath sounds with greatly impaired air movement, improved since prior exam Abd: No rebound guarding masses or tenderness Extr: No clubbing or cyanosis, mild BL LE edema Skin: Multiple excoriations diffusely about upper extremities Neuro: CN 2-12 grossly intact, no focal neurologic deficit. Psych: Patient very pre-occupied by what she perceives as disfigurement induced by steroids IVs and Medications Medications Reviewed: Medications were reviewed in detail Lab and Diagnostics Item Value Date Time Red Blood Count 4.78 mil/mm3 04/03/17226 Mean Corpuscular Volume 85.4 fL 04/03/17226 Mean Corpuscular Hemoglobin 27.2 pg 04/03/17226 Mean Corpuscular Hemoglobin Concent 31.9 % L 04/03/17226 Red Cell Distribution Width 16.1 % H 04/03/17226 Neutrophils (%) (Auto) 86 % H 04/03/17226 Lymphocytes (%) (Auto) 11 % L 04/03/17226 Monocytes (%) (Auto) 1 % L 04/03/17226 Eosinophils (%) (Auto) 0 % 04/03/17226 Basophils (%) (Auto) 0 % 04/03/17226 Band Neutrophils % 2 % 04/03/17226 Estimat Glomerular Filtration Rate 124 mL/min 04/03/17226 Calcium Level 8.8 mg/dL 04/03/17226 Procalcitonin 0.10 ng/mL H 04/03/17226 Result Diagram: 04/03/1722604/03/17226 Microbiology Streptococcus pneumoniae urine antigen negative X-Rays, CTs and MRIs Chest x-ray X-RAY CHEST ONE VIEW, PORTABLE IMPRESSION: Generalized pulmonary edema pattern, statistically most likely cardiogenic in origin. Moderate cardiomegaly. Dictated by: Lennox Melgoza M.D. on 04/02/2017 at 8:00 Renal ultrasound IMPRESSION: A post-renal cause is not identified for acute renal insufficiency. Dictated by: Mark Hyde M.D. on 03/25/2017 at 21:03 US Veinous Leg Duplex Unilateral IMPRESSION: Bifid popliteal vein present with occlusive venous thrombus within one of the vessels. Additional Diagnostics US RENAL SONOGRAM IMPRESSION: A post-renal cause is not identified for acute renal insufficiency. Dictated by: Mark Hyde M.D. on 03/25/2017 at 21:03 Approved by: Mark Hyde M.D. on 03/25/2017 at 21:05 . Assessment & Plan Sonia Casarez is a 56-year-old lady with severe pulmonary compromise due to DIP , COPD, diastolic congestive heart failure, and long-term nicotine dependence admitted for treatment of right lower extremity DVT and currently suffering from acute exacerbation of pulmonary problems and congestive heart failure. Patient continues to require High flow nasal cannula, though intensity of settings has been reduced. Acute on chronic respiratory failure secondary, present on admission. Ongoing. -Secondary to DIP, COPD, and pulmonary edema secondary to congestive heart failure -Continue current treatment plan under the direction of Pulmonology, slight improvement in terms of decreased oxygen requirements -Continuing aggressive diuresis with IV furosemide Occlusive right DVT, present on admission. Ongoing. -Likely secondary to decreased mobility secondary to right hip pain -Continue therapy with Xarelto Acute kidney failure, present on admission. Resolved. -Unclear etiology -Continue to monitor closely Pulmonary issues, including DIP, COPD, pulmonary edema, pneumonia, present on admission. Ongoing. -Continuing therapy with IV glucocorticoid, cefepime, high flow oxygen, mobilization, incentive spirometry/Acapella -Wean as tolerated, under the direction of Pulmonology Hyperkalemia, not present on admission. Active. -Ongoing diuresis with IV furosemide -Continue to monitor closely Non-insulin dependent diabetes type II, present on admission. Ongoing grade -Continue to hold metformin -Continue insulin for blood sugar control with systemic glucocorticoid -Continue to monitor closely Leukocytosis, not present on admission. Active. -Likely secondary to pneumonia and/or glucocorticoid use -Improving; continue to monitor closely Depression/PTSD, present on admission. Ongoing. -Continue fluoxetine, lorazepam, prazosin, propanolol, hydroxyzine Hypertension, chronic. Slightly labile and elevated. -Continue lisinopril and diuresis with loop diuretic Coronary artery disease, present on admission. Stable. -Continue aspirin and atorvastatin Chronic pain, present on admission. Stable. -Continue methadone and gabapentin History of polysubstance abuse. Stable. -Previously used heroin, marijuana, cocaine, and methamphetamines Nicotine dependence, present on admission. Stable. -Currently using tobacco. She has been educated numerous times -Nicotine patch as needed Of note: The patient has recently been seeking surgery for her right hip through orthopedics. She states that if she cannot have this surgery her quality of life is not such that she would be willing to continue on. She has recently been approved by Dr. Goode to undergo the surgery, however this was before the DVT and exacerbation of her DIP. I spoke with Dr. Goode on 03/29 about her current condition and he was reluctant to continue surgery as she is in this state. He states that she must be DVT free at time of surgery. And states that he would prefer that she be on no more than 10 mg of prednisone at the time of surgery. He states that even though he is willing to operate under these parameters, it is unlikely that anesthesiology would accept a case such as this. Dr. Coffey suggested that in the interim radiology guided cortisone injection may be attempted, and this may alleviate some pain that the patient experiences in the right hip. Update 03/30: Palliative was consulted on this case and began to discuss with the patient various options. After a very long discussion, the patient stated that she is not willing to "give up" at this moment and is willing to do what is necessary to be able to proceed towards surgery. I reiterated the difficulty of continuing on in this pattern and she reassured me that she was willing to face whatever difficulties may arise. She is aware that it may be several months before surgery can be obtained and is willing to endure whatever it takes in order to make that happen, including stopping smoking. I also discussed with her the option of having interventional radiology perform a steroid injection of the joint. She states that the last time that the joint was injected she subsequently suffered a stroke, and for this reason she is concerned about undergoing another injection. I stated that this option would remain open to her if she should change her mind. Disposition: Discharged to home when patient is able to wean off high flow oxygen. date of discharge uncertain as patient continues to be on High dose steroids with high respiratory support. . Pain Evaluation: Adequate Pain Control GI Prophylaxis: Not indicated VTE Prophylaxis: Other (Heparin drip) Resuscitation Status: CPR: Attempt Resuscitation Attending Statement The patient was seen and examined together with Dr. Dominguez on 04/03/2017 and I agree with the history, exam and plan as outlined in the note above. . Edin Dominguez DO Apr 03, 2017 14:26 Harjinder Lang MD Apr 03, 2017 16:13
--- NOTE | 2017-04-03 18:25 | NUR ---
High Flow/up to chair to eat/constipation Cardiac: Pt denies CP, Tele: SR 70-100 Resp: high flow 50L 60% spo2 high 80s-low 90s. Pt up to chair for meals, able to tolerate non-rebreather 15L when down for CT scan, maintained SPO2 90%. GI/: Denies n/v, senna and miralax given for constipation. Neuro: a/ox3. PRN PO ativan given for anxiety.
[2017-04-03] MEDS: Insulin GLARgine 100 Unit/mL Syringe SUBQ SCH (20:48)
[2017-04-04] VITALS (12 sets, daily range): BP systolic 112–151; BP diastolic 65–77; PULSE 84–109; RESP 14–22; O2SAT 88–94
[2017-04-04 03:32] LABS: Mean Corpuscular Volume 85.1 fL (81-100)
[2017-04-04 03:33] LABS: BASOPHILS % (AUTO) 0.2 % (0-3); EOSINOPHILS % (AUTO) 0 % (0-5); MONOCYTES % (AUTO) 3.9 % (4-12); Mean Corpuscular Hemoglobin 27.1 pg (27.0-35.0); NEUTROPHILS % (AUTO) 85.1 % (40-74); Platelet Count 334 bil/L (150-400)
[2017-04-04 03:48] LABS: INR 1.17 ratio
[2017-04-04 03:59] LABS: Phosphorus 3.5 mg/dL (2.5-4.9)
--- NOTE | 2017-04-04 06:15 | NUR ---
High Flow High flow titrated down to 50L, Fi02 40%. Sp02 high 80s-low 90s. Pt pain/ anxiety well controlled- sleeping overnight.
[2017-04-04] MEDS: Insulin LISPRO 300 Unit/3 mL Inj SUBQ SCH ×4 (08:00→22:00)
[2017-04-04] MEDS: oxyCODONE-Acetamin 5-325 mg Tablet PO PRN ×2 (08:13→15:38)
[2017-04-04] MEDS: Polyethylene Glycol (PEG) 17 Gm Powder PO PRN (08:13)
[2017-04-04] MEDS: LORazepam 0.5 mg Tablet PO PRN ×2 (08:13→15:38)
[2017-04-04] MEDS: MethylprednisoLONE Sodium Succinate 40 mg/mL Inj IVPUSH SCH ×2 (08:14→20:28)
[2017-04-04] MEDS: Cefepime 1,000 MG in Dextrose 5% Minibag Plus 50 ML IV SCH ×2 (08:15→20:49)
--- NOTE | 2017-04-04 12:01 | NUR ---
PT 2x/week due to respiratory limitation PT to reduce frequency to 2-3x/week due to respiratory limitations. Pt to mobilize w/nsg as much as able.
[2017-04-04] MEDS: HYDROmorphone 0.5 mg/0.5 mL iSecure Syringe IVPUSH PRN ×2 (12:13→20:48)
--- NOTE | 2017-04-04 14:34 | PCM.PNMED ---
Subjective Date of Service Apr 04, 2017 Subjective Assessment: Patient continues on high flow oxygen fio2 currently 60. Appears to be saturating well at this level (95%) content with the plan to push forward by weaning o2 as tolerated. Events Overnight: No acute events overnight. ROS: Shortness of breath. Denies fever/chills, nausea/vomiting, headache, weakness, abdominal pain, chest pain, increased swelling in hands or feet. Exam Vital Signs Vital Sign - Last Date Time Temp Pulse Resp B/P Pulse Ox O2 Delivery O2 Flow Rate FiO2 04/04/17 13:25 37.0 109 14 134/67 88 HI FLOW 04/04/17 08:16 40 40 Intake and Output 04/03/17 04/03/17 04/04/17 Cumulative From/Thru 15:00 23:00 07:00 03/25/17 15:55 - 04/04/17 06:13 Intake Total 1037 ml 250 ml 92994 ml Output Total 1750 ml 1450 ml 99384 ml Balance -713 ml -1200 ml -3719 ml Intake Oral 987 ml 200 ml 03629 ml IV Total 50 ml 50 ml 9772 ml Output Urine Total 1750 ml 1450 ml 47116 ml # Bowel Movements 0 Exam General: No acute distress, well-developed, well-nourished HEENT: Normocephalic, atraumatic. External ears without defect. Pupils equal, round, and reactive to light and accommodation. Anicteric sclerae, moist conjunctivae. Cardiovascular: Regular rate and rhythm with no murmurs, rubs, or gallops appreciated Pulmonary: Coarse breath sounds throughout with bilateral crackles; and inspiratory/expiratory wheezing increased respiratory effort. Currently on high flow oxygen. Abdomen: Bowel tones present. Soft, obese. nontender, nondistended. Extremities: No clubbing, cyanosis, mild erythema of the right knee. mild edema of the right lower extremity compared to the left. Skin: Normal temperature, turgor, and texture; no rash, ulcers, or subcutaneous nodules appreciated. Neurological: Cranial nerves grossly intact. Reflexes, coordination, and sensory function within normal limits. Normal muscle strength, tone, and bulk. Psychiatric: Depressed mood and affect. Alert and oriented to person, place, and time IVs and Medications Medications Reviewed: Medications were reviewed in detail Medications High risk medications include: Ativan dilaudid percocet morphine xarelto Lab and Diagnostics Result Diagram: 04/04/17 02504/04/17 025 Microbiology Streptococcus pneumoniae urine antigen negative X-Rays, CTs and MRIs Chest x-ray X-RAY CHEST ONE VIEW, PORTABLE IMPRESSION: Generalized pulmonary edema pattern, statistically most likely cardiogenic in origin. Moderate cardiomegaly. Dictated by: Lennox Melgoza M.D. on 04/02/2017 at 8:00 Renal ultrasound IMPRESSION: A post-renal cause is not identified for acute renal insufficiency. Dictated by: Mark Hyde M.D. on 03/25/2017 at 21:03 US Veinous Leg Duplex Unilateral IMPRESSION: Bifid popliteal vein present with occlusive venous thrombus within one of the vessels. Additional Diagnostics US RENAL SONOGRAM IMPRESSION: A post-renal cause is not identified for acute renal insufficiency. Dictated by: Mark Hyde M.D. on 03/25/2017 at 21:03 Approved by: Mark Hyde M.D. on 03/25/2017 at 21:05 . 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 Patient continues to require High flow nasal cannula, with decreasing oxygen needs. Acute on chronic respiratory failure secondary, present on admission. Ongoing. -Secondary to DIP, COPD, and pulmonary edema secondary to congestive heart failure -Continue current treatment plan under the direction of Pulmonology, slight improvement in terms of decreased oxygen requirements -Continuing aggressive diuresis with IV furosemide Occlusive right DVT, present on admission. Ongoing. -Likely secondary to decreased mobility secondary to right hip pain -Continue therapy with Xarelto Acute kidney failure, present on admission. Resolved. -Unclear etiology -Continue to monitor closely Pulmonary issues, including DIP, COPD, pulmonary edema, pneumonia, present on admission. Ongoing. -Continuing therapy with IV glucocorticoid, cefepime, high flow oxygen, mobilization, incentive spirometry/Acapella -Wean as tolerated, under the direction of Pulmonology Hyperkalemia, not present on admission. Active. -Ongoing diuresis with IV furosemide -Continue to monitor closely Non-insulin dependent diabetes type II, present on admission. Ongoing grade -Continue to hold metformin -Continue insulin for blood sugar control with systemic glucocorticoid -Increase Lantus from 10 units QHS to 20units -Continue to monitor closely Leukocytosis, not present on admission. Active. -Likely secondary to pneumonia and/or glucocorticoid use -Improving; continue to monitor closely Depression/PTSD, present on admission. Ongoing. -Continue fluoxetine, lorazepam, prazosin, propanolol, hydroxyzine Hypertension, chronic. Slightly labile and elevated. -Continue lisinopril and diuresis with loop diuretic Coronary artery disease, present on admission. Stable. -Continue aspirin and atorvastatin Chronic pain, present on admission. Stable. -Continue methadone and gabapentin History of polysubstance abuse. Stable. -Previously used heroin, marijuana, cocaine, and methamphetamines currently has not used in over 2 years Nicotine dependence, present on admission. Stable. -Currently using tobacco. She has been educated numerous times -Nicotine patch as needed Of note: The patient has recently been seeking surgery for her right hip through orthopedics. She states that if she cannot have this surgery her quality of life is not such that she would be willing to continue on. She has recently been approved by Dr. Goode to undergo the surgery, however this was before the DVT and exacerbation of her DIP. I spoke with Dr. Goode on 03/29 about her current condition and he was reluctant to continue surgery as she is in this state. He states that she must be DVT free at time of surgery and states that he would prefer that she be on no more than 10 mg of prednisone at the time of surgery. He states that even though he is willing to operate under these parameters, it is unlikely that anesthesiology would accept a case such as this. Dr. Coffey suggested that in the interim radiology guided cortisone injection may be attempted, and this may alleviate some pain that the patient experiences in the right hip. Update 03/30: Palliative was consulted on this case and began to discuss with the patient various options. After a very long discussion, the patient stated that she is not willing to "give up" at this moment and is willing to do what is necessary to be able to proceed towards surgery. I reiterated the difficulty of continuing on in this pattern and she reassured me that she was willing to face whatever difficulties may arise. She is aware that it may be several months before surgery can be obtained and is willing to endure whatever it takes in order to make that happen, including stopping smoking. I also discussed with her the option of having interventional radiology perform a steroid injection of the joint. She states that the last time that the joint was injected she subsequently suffered a stroke, and for this reason she is concerned about undergoing another injection. I stated that this option would remain open to her if she should change her mind. Disposition: Discharged to home when patient is able to wean off high flow oxygen. Date of discharge uncertain as patient continues to be on High dose steroids with high respiratory support. . Pain Evaluation: Adequate Pain Control GI Prophylaxis: Not indicated VTE Prophylaxis: Other (Heparin drip) Resuscitation Status: CPR: Attempt Resuscitation Attending Statement The patient was seen and examined together with Dr. Levi on 04/04/17 and I have added additional information to the note above. David Levi DO Apr 04, 2017 14:34 Mercedes Valle DO Apr 04, 2017 17:27
--- NOTE | 2017-04-04 15:16 | PROG NOTE ---
[address] [address] PROGRESS NOTE PATIENT: JONO RODNEY : 1960 MR#: [id number] ADMIT: 03/25/2017 JOB ID: [id number] DATE: 04/04/2017 PROBLEM LIST: 1. Acute exacerbation of interstitial lung disease (DIP). 2. Nicotine addiction. 3. DVT. 4. Osteoarthritis, right hip. SUBJECTIVE: Breathing a bit more comfortably, though only marginally slow. States she is maybe 25% better. Cough resolving. Bringing up only a small amount of phlegm which she tends to swallow. Eating reasonably well. No peripheral edema. OBJECTIVE: Temperature 37, pulse 84-109, respiratory rate 14, blood pressure 134/67. O2 sat on high-flow oxygen at an FiO2 of 0.4, flow at 50 L/minute is 88% to 91%. General appearance: Moderately overweight. Lying supine in bed. No acute distress. Speaking easily. Chest: Fair breath sounds bilaterally. Diffuse mid to end-inspiratory crackles. No wheeze. No use of accessory muscles. Heart: Regular rhythm. Heart tones normal. Abdomen is soft. Extremities: No pretibial edema. LABORATORY DATA: Shows a white count of 13,500 with a moderate neutrophilia. Hemoglobin stable at 13.8, platelet count rising at 334,000. Sodium 139, potassium 5, chloride 92, CO2 31, BUN 40, creatinine 0.7. Glucose moderately elevated at 203. Calcium 8.9 with albumin 3.5. Phosphorus normal at 3.5. Magnesium 2. Total bilirubin 0.2. Transaminases normal. Alkaline phos normal at 129. ASSESSMENT: Acute exacerbation of interstitial lung disease. Clinically doing somewhat better. Still with a very wide (A-a DO2) gradient. Currently on a high-flow system to achieve borderline oxygenation levels. However, they are improving. Unfortunately, is requiring methylprednisolone at 120 mg a day to achieve that result. Apparently she is improving. Will continue same regimen. I had a long discussion with her regarding the various problems, namely her lung disease in conjunction with her need for hip replacement, complicated by steroid usage as well as a recent DVT. Recognize her frustration over the continued delay in hip surgery. In the interim, she is confined to a wheelchair Discussed options which are rather few at this point. PLAN: 1. For the moment, will continue current dose of steroids. Discussed with the primary team possibly decreasing them. 2. Continue other medications.
--- NOTE | 2017-04-04 18:04 | NUR ---
pain control, O2 and diet Pt sleeping comfortably during shift. When she wakes up she c/o pain in her R hip of 8-06/07. Medicated with percocet or dilaudid depending on timing per OCT. After admin, pt sleeping again however if asked she will say her pain is "a little better" but the number didn't change. Pt sleeping comfortably for remainder of shift, sats around 90 and RR=12-14. Pt remains on 50L heated hiflow NC at 40%. Sats in high 80's to low 90's. Pt will desat down to 70's with turning or any activity. Pt upset with staff that we will not get her sherbert and full sugar sodas whenever she requests them. She does not understand why she is not diabetic at home and she is told her she is diabetic. Explained to pt that while she is here in hospital she is taking a lot of steroids which increase her blood sugar and her normal regimen from home can't keep up. While here on the steroids she needs to follow the diabetic diet. Spoke with re: this conversation and order changed to carb count diet.
[2017-04-04] MEDS ORDERED: Insulin GLARgine 100 Unit/mL Syringe SUBQ SCH (21:00)
[2017-04-05] VITALS (12 sets, daily range): BP systolic 127–150; BP diastolic 63–78; PULSE 80–110; RESP 11–20; O2SAT 87–96
[2017-04-05] MEDS: LORazepam 0.5 mg Tablet PO PRN ×2 (02:20→12:48)
[2017-04-05] MEDS: oxyCODONE-Acetamin 5-325 mg Tablet PO PRN ×3 (02:20→17:54)
[2017-04-05 02:57] LABS: BASOPHILS % (AUTO) 0.1 % (0-3); EOSINOPHILS % (AUTO) 0.1 % (0-5); MONOCYTES % (AUTO) 3.7 % (4-12); Mean Corpuscular Hemoglobin 27.8 pg (27.0-35.0); Mean Corpuscular Volume 84.7 fL (81-100); NEUTROPHILS % (AUTO) 85.8 % (40-74); Platelet Count 398 bil/L (150-400)
--- NOTE | 2017-04-05 06:34 | NUR ---
Respiratory/Pain Management A/O, with intermittent restlessness. SPO2 remained in upper 80s to 90, drops to upper 70's with activity. Rested with eyes closed for extended period of time, awoke to pain in R hip region. Medications given. VSS. Had a period of time with decrease SPO2 into 70's, RT notified and now 90's with High Flow 55/40%. Denies exacerbation of respiratory status, tolerated care well, reinforced dietary needs and limits on intake. Tele: SR 80's - 100. Report given to on coming RN.
[2017-04-05] MEDS: Insulin LISPRO 300 Unit/3 mL Inj SUBQ SCH ×4 (08:00→22:00)
[2017-04-05] MEDS: HYDROmorphone 0.5 mg/0.5 mL iSecure Syringe IVPUSH PRN ×2 (10:06→20:30)
[2017-04-05] MEDS: MethylprednisoLONE Sodium Succinate 40 mg/mL Inj IVPUSH SCH ×2 (10:07→21:19)
[2017-04-05] MEDS: Cefepime 1,000 MG in Dextrose 5% Minibag Plus 50 ML IV SCH ×2 (10:07→21:19)
--- NOTE | 2017-04-05 11:44 | PCM.PNMED ---
Subjective Date of Service Apr 05, 2017 Subjective Pulmonology Progress Note Hospital day 12 Overnight: Patient sating in the 80's to low 90's on flow rate of 50 and FIO2 of 40% with intermittent desaturation when active. Patient continues to get her Percocet, Dilaudid and outpatient dose of methadone for her chronic 10 right hip pain. She has not had BM since admission despite stool softeners. Potassium elevated to 5.6 without ectopy on remote tele. Patient states she does not detect any change in her pulmonary status since yesterday. This morning during rounding patient had O2 sat 94-96% at rest on her current O2 level. CT chest from yesterday with no evidence of congestive process. CT unchanged with regard to diffuse lung disease. Radiologically has an atypical appearance but consistent with an infectious process. Patients white count down from high of 22.0 to 16.0 with a not so impressive procalcitonin of 0.10. The Leukocytosis now likely being secondary to continuation of high dose steroids for her DIP, given no evidence for infectious process with regards to serologic testing. Lung sounds this morning continue have resolution of wheezing detected earlier in her hospital course with continuation of the b/l crackles heard. Patient appears dry and is negative 3.5 L of secondary to aggressive diuretics for a suspected congestive process given repeated CXR evidence of pulmonary edema, elevated BNP's and findings on lung auscultation. Exam Vital Signs Vital Sign - Last Date Time Temp Pulse Resp B/P Pulse Ox O2 Delivery O2 Flow Rate FiO2 04/05/17 10:40 80 04/05/17 09:18 12 94 Nasal Cannula 50 40 04/05/17 08:41 36.5 150/78 Intake and Output 04/04/17 04/04/17 04/05/17 Cumulative From/Thru 15:00 23:00 07:00 03/25/17 15:55 - 04/05/17 06:09 Intake Total 1124 ml 590 ml 22205 ml Output Total 700 ml 750 ml 42970 ml Balance 424 ml -160 ml -3455 ml Intake Oral 1074 ml 540 ml 98647 ml IV Total 50 ml 50 ml 9872 ml Output Urine Total 700 ml 750 ml 53387 ml # Bowel Movements 0 Exam General: Appears older then stated age, obese,resting in bed and speaking full sentences. Patient appears well oxygenated and not sob as long as she remains at rest. HEENT: NC/AT,eyed no erythema, no scleral icterus, nares patent Lungs: with resolution of previous inspiratory wheezes, moderate diffuse crackles bilaterally persist. Heart: RRR, with no murmurs Abdomen: Soft non-tender, not distended Genitourinary: Mckeon present and draining clear light yellow urine. Skin: Warm dry intact without rash, erythema, signs of infection, non diaphoretic IVs and Medications Medications Reviewed: Medications were reviewed in detail Lab and Diagnostics Result Diagram: 04/05/17 0230 04/05/17 1030 Microbiology Streptococcus pneumoniae urine antigen negative X-Rays, CTs and MRIs Chest x-ray X-RAY CHEST ONE VIEW, PORTABLE IMPRESSION: Generalized pulmonary edema pattern, statistically most likely cardiogenic in origin. Moderate cardiomegaly. Dictated by: Lennox Melgoza M.D. on 04/02/2017 at 8:00 Renal ultrasound IMPRESSION: A post-renal cause is not identified for acute renal insufficiency. Dictated by: Mark Hyde M.D. on 03/25/2017 at 21:03 US Veinous Leg Duplex Unilateral IMPRESSION: Bifid popliteal vein present with occlusive venous thrombus within one of the vessels. Additional Diagnostics US RENAL SONOGRAM IMPRESSION: A post-renal cause is not identified for acute renal insufficiency. Dictated by: Mark Hyde M.D. on 03/25/2017 at 21:03 Approved by: Mark Hyde M.D. on 03/25/2017 at 21:05 . Assessment & Plan Sonia Casarez is a 56-year-old lady with severe pulmonary compromise due to Desquamated Interstitial Pneumonia, COPD, diastolic congestive heart failure, and long-term nicotine dependence admitted for treatment of right lower extremity DVT and currently suffering from acute exacerbation of chronic pulmonary problems. Patient continues to require High flow nasal cannula, with decreasing oxygen needs. Acute on chronic respiratory failure, present on admission. Ongoing. - Secondary to DIP, COPD with hx of continued tobacco use disorder. - Pulmonary edema socondary to CHF is unlikely despite elevated BNP's given normal LVEF of 60-65% on echo from 02/22/2017, and given CT chest that does not appear to have congestive process. - Continue current treatment plan under the direction of Pulmonology, slight improvement in terms of decreased oxygen requirements - Will hold further IV furosemide as patient likely has reached maximum benefit from this given she now appears dry and is negative 3.5 L cumulative. Pulmonary issues, including DIP, COPD, pulmonary edema, pneumonia, present on admission. Ongoing. - Continuing therapy with IV Solumedrol for now - Continue IV cefepime now day 8. although infectious process less likely given procalcitonin of 0.10 and lack of evidence of infectious etiology - Will maintain high flow oxygen at rate of 50, and titrate down FIO2 to 30-35% as tolerated. - Continue mobilization, incentive spirometry/Acapella - Broncoscopy would likely be low yield at this point and only show chronic scaring from DIP. Occlusive right DVT, present on admission. Ongoing. -Likely secondary to decreased mobility secondary to right hip pain -Continue therapy with Xarelto Hyperkalemia, not present on admission. Active. - K+ 5.6 on repeat state draw this AM 04/05/2017. - No evidence of ectopic rhythm - Holding further IV furosemide - Will defer to primary team for treatment - Continue with remote tele Constipation, Present on Admission, active - likely secondary to chronic opioid use. - No BM since admission recorded in [facility] despite stool softeners. Acute kidney failure, present on admission. Resolved. -Unclear etiology -Continue to monitor closely Non-insulin dependent diabetes type II, present on admission. Ongoing grade -Defer to primary team Leukocytosis, not present on admission. Active. -Likely secondary to glucocorticoid use, and less likely related to Pneumonia given procalcitonin 0.[address] -Improving; continue to monitor closely Depression/PTSD, present on admission. Ongoing. -Continue fluoxetine, lorazepam, prazosin, propanolol, hydroxyzine Hypertension, chronic. Slightly labile and elevated. -Continue lisinopril and diuresis with loop diuretic Coronary artery disease, present on admission. Stable. -Continue aspirin and atorvastatin Chronic pain, present on admission. Stable. -Continue methadone and gabapentin History of polysubstance abuse. Stable. -Previously used heroin, marijuana, cocaine, and methamphetamines currently has not used in over 2 years Nicotine dependence, present on admission. Stable. -Currently using tobacco. She has been educated numerous times -Nicotine patch as needed GI Prophylaxis: Not indicated VTE Prophylaxis: Other (Heparin drip) Resuscitation Status: CPR: Attempt Resuscitation Attending Statement The patient was seen and examined together with Dr. Alvarez on 04/05/2017 and I agree with the history, exam and plan as outlined in the note above. Yuan Alvarez DO Apr 05, 2017 11:44 Abdiel Ye MD Apr 14, 2017 09:47 Yuan Alvarez DO Apr 05, 2017 11:44 GI Prophylaxis: Not indicated VTE Prophylaxis: Other (Heparin drip) Resuscitation Status: CPR: Attempt Resuscitation Yuan Alvarez DO Apr 05, 2017 11:44
--- NOTE | 2017-04-05 11:48 | NUR ---
NUTRITION ASSESSMENT: ASSESS: Pt is a 56yo F admitted for DVT and acute on chronic respiratory failure secondary to CHF, Pulmonary edema. Pulmonology is following. She is on a Diabetic diet with good PO at 75-100% of meals. Wt has been stable throughout stay. No recorded BM since admit, pt is receiving bowel meds. PMHX: Desquamative interstitial pneumonia, COPD, chronic resp failure, T2DM, Pul HTN, PTSD, Hep C LABS: Reviewed. K 5.6, Cl 94, CO2 30, Bun 44, Glu 192, ALT 39, Alb 3.9 MEDS: Reviewed. Senna, solu-medrol, senna, miralax GI: 0 BM recorded x11 days SKIN: Viplu 20 CURRENT WTS: 80.4kg, BMI 30.4kg/m2, admit wt 81.8kg, IBW: 54.5kg DIET: Diabetic, PO 75-100% EST. NEEDS: Kcals: 1770-2010kcal/day (22-25kcal/kg) Pro: 65-85g/day (1.2-1.5g/kg IBW) NUTRITION DIAGNOSIS: 1.) No nutrition diagnosis at this time NUTRITION INTERVENTION: 1.) PO is adequate at this time. Will continue current diet at this time MONITOR / EVAL: PO, wt, BM, GI, labs, POC, nutrition status, Will continue to monitor per low nutrition risk guidelines
--- NOTE | 2017-04-05 16:05 | PCM.PNMED ---
Subjective Date of Service Apr 05, 2017 Subjective Subjective: Patient states that she continues to feel approximately the same as before. She continues on high flow oxygen however FiO2 now decreased to 40. Notes minimal shortness of breath. Events Overnight: No acute events overnight. ROS: Shortness of breath. Denies fever/chills, nausea/vomiting, headache, weakness, abdominal pain, chest pain, increased swelling in hands or feet. Exam Vital Signs Vital Sign - Last Date Time Temp Pulse Resp B/P Pulse Ox O2 Delivery O2 Flow Rate FiO2 04/05/17 15:05 110 90 HHFNC 04/05/17 15:05 12 40 45 04/05/17 12:08 36.7 149/77 Intake and Output 04/04/17 04/04/17 04/05/17 Cumulative From/Thru 15:00 23:00 07:00 03/25/17 15:55 - 04/05/17 06:09 Intake Total 1124 ml 590 ml 89757 ml Output Total 700 ml 750 ml 05443 ml Balance 424 ml -160 ml -3455 ml Intake Oral 1074 ml 540 ml 01913 ml IV Total 50 ml 50 ml 9872 ml Output Urine Total 700 ml 750 ml 62810 ml # Bowel Movements 0 Exam General: No acute distress, well-developed, well-nourished HEENT: Normocephalic, atraumatic. External ears without defect. Pupils equal, round, and reactive to light and accommodation. Anicteric sclerae, moist conjunctivae. Cardiovascular: Regular rate and rhythm with systolic murmurs no rubs or gallops appreciated Pulmonary: Coarse breath sounds throughout with bilateral crackles; and inspiratory/expiratory wheezing increased respiratory effort. Currently on high flow oxygen. Abdomen: Bowel tones present. Soft, obese. nontender, nondistended. Extremities: No clubbing, cyanosis, mild erythema of the right knee. mild edema of the right lower extremity compared to the left. Skin: Normal temperature, turgor, and texture; no rash, ulcers, or subcutaneous nodules appreciated. Neurological: Cranial nerves grossly intact. Reflexes, coordination, and sensory function within normal limits. Normal muscle strength, tone, and bulk. Psychiatric: Depressed mood and affect. Alert and oriented to person, place, and time IVs and Medications Medications Reviewed: Medications were reviewed in detail Medications High risk medications include: Ativan dilaudid percocet morphine xarelto Lab and Diagnostics Result Diagram: 8/8/17 0230 04/05/17 1030 Microbiology Streptococcus pneumoniae urine antigen negative X-Rays, CTs and MRIs Chest x-ray X-RAY CHEST ONE VIEW, PORTABLE IMPRESSION: Generalized pulmonary edema pattern, statistically most likely cardiogenic in origin. Moderate cardiomegaly. Dictated by: Lennox Melgoza M.D. on 04/02/2017 at 8:00 Renal ultrasound IMPRESSION: A post-renal cause is not identified for acute renal insufficiency. Dictated by: Mark Hyde M.D. on 03/25/2017 at 21:03 US Veinous Leg Duplex Unilateral IMPRESSION: Bifid popliteal vein present with occlusive venous thrombus within one of the vessels. Additional Diagnostics US RENAL SONOGRAM IMPRESSION: A post-renal cause is not identified for acute renal insufficiency. Dictated by: Mark Hyde M.D. on 03/25/2017 at 21:03 Approved by: Mark Hyde M.D. on 03/25/2017 at 21:05 . Assessment & Plan Sonia Casarez is a 56-year-old lady with severe pulmonary compromise due to Desquamated Interstitial Pneumonia (DIP), COPD, diastolic congestive heart failure, and long-term nicotine dependence admitted for treatment of right lower extremity DVT and currently suffering from acute exacerbation of pulmonary problems and congestive heart failure. Patient continues to require High flow nasal cannula, with decreasing oxygen needs. Acute on chronic respiratory failure secondary, present on admission. Ongoing. -Secondary to DIP, COPD, and pulmonary edema secondary to congestive heart failure -Continue current treatment plan under the direction of Pulmonology, slight improvement in terms of decreased oxygen requirements -Continuing aggressive diuresis with IV furosemide Occlusive right DVT, present on admission. Ongoing. -Likely secondary to decreased mobility secondary to right hip pain -Continue therapy with Xarelto Acute kidney failure, present on admission. Resolved. -Unclear etiology -Continue to monitor closely Pulmonary issues, including DIP, COPD, pulmonary edema, pneumonia, present on admission. Ongoing. - Continuing therapy with IV Solu-Medrol, decreased today from 60 to 30 mg IV BID - Continue cefepime, infectious focus unlikely but cannot be ruled out. - Continue high flow oxygen, Wean as tolerated, under the direction of Pulmonology - Incentive spirometry/Acapella, mobilization Hyperkalemia, not present on admission. Active. -New-onset, borderline elevation -Continue to monitor closely Non-insulin dependent diabetes type II, present on admission. Ongoing grade -Continue to hold metformin -Continue insulin for blood sugar control with systemic glucocorticoid -Increase Lantus from 20 units QHS to 30 units -Continue to monitor closely Leukocytosis, not present on admission. Active. -Likely secondary to pneumonia and/or glucocorticoid use -Stable, continue to monitor closely Depression/PTSD, present on admission. Ongoing. -Continue fluoxetine, lorazepam, prazosin, propanolol, hydroxyzine Hypertension, chronic. Slightly labile and elevated. -Continue lisinopril -Hold loop diuretic as patient is likely achieved maximum benefit at this point. Coronary artery disease, present on admission. Stable. -Continue aspirin and atorvastatin Chronic pain, present on admission. Stable. -Continue methadone and gabapentin History of polysubstance abuse. Stable. -Previously used heroin, marijuana, cocaine, and methamphetamines currently has not used in over 2 years Nicotine dependence, present on admission. Stable. -Currently using tobacco. She has been educated numerous times -Nicotine patch as needed Of note: The patient has recently been seeking surgery for her right hip through orthopedics. She states that if she cannot have this surgery her quality of life is not such that she would be willing to continue on. She has recently been approved by Dr. Goode to undergo the surgery, however this was before the DVT and exacerbation of her DIP. I spoke with Dr. Goode on 03/29 about her current condition and he was reluctant to continue surgery as she is in this state. He states that she must be DVT free at time of surgery and states that he would prefer that she be on no more than 10 mg of prednisone at the time of surgery. He states that even though he is willing to operate under these parameters, it is unlikely that anesthesiology would accept a case such as this. Dr. Coffey suggested that in the interim radiology guided cortisone injection may be attempted, and this may alleviate some pain that the patient experiences in the right hip. Update 03/30: Palliative was consulted on this case and began to discuss with the patient various options. After a very long discussion, the patient stated that she is not willing to "give up" at this moment and is willing to do what is necessary to be able to proceed towards surgery. I reiterated the difficulty of continuing on in this pattern and she reassured me that she was willing to face whatever difficulties may arise. She is aware that it may be several months before surgery can be obtained and is willing to endure whatever it takes in order to make that happen, including stopping smoking. I also discussed with her the option of having interventional radiology perform a steroid injection of the joint. She states that the last time that the joint was injected she subsequently suffered a stroke, and for this reason she is concerned about undergoing another injection. I stated that this option would remain open to her if she should change her mind. Disposition: Discharged to home when patient is able to wean off high flow oxygen. Date of discharge uncertain as patient continues to be on High dose steroids with high respiratory support. GI Prophylaxis: Not indicated VTE Prophylaxis: Other (Xarelto) Resuscitation Status: CPR: Attempt Resuscitation Attending Statement The patient was seen and examined together with Dr. Levi on 04/05/17 and I have added additional information to the note above. David Levi DO Apr 05, 2017 16:05 Mercedes Valle DO Apr 10, 2017 18:33
--- NOTE | 2017-04-05 18:38 | NUR ---
SPO2/activity Cardiac: Pt denies CP, Tele: SR 90-100's Resp: Pt reports intermittent SOB. High flow titrated down 50L 35% spo2 high 80s-low 90s. titrated down to 40L 45%, pt tolerated well, maintained SPO2 as before. GI/: Denies abd pain, n/v. senna and mirilax given for constipation. Ddd additional teaching on proper diabetic diet and avoiding sugars. Neuro: a/o, garcia, ativan given for anxiety, pt up at edge of bed for breakfast. Reiterated to patient the importance of getting up and out of bed as much as possible. pt voices understanding up in chair for dinner.
[2017-04-05] MEDS: Insulin GLARgine 100 Unit/mL Syringe SUBQ SCH (21:19)
[2017-04-06] VITALS (9 sets, daily range): BP systolic 132–181; BP diastolic 67–83; PULSE 85–97; RESP 10–18; O2SAT 84–97
[2017-04-06] MEDS: oxyCODONE-Acetamin 5-325 mg Tablet PO PRN ×4 (01:06→18:35)
[2017-04-06 03:39] LABS: Mean Corpuscular Hemoglobin 27.7 pg (27.0-35.0); Mean Corpuscular Volume 85.3 fL (81-100)
[2017-04-06] MEDS: HYDROmorphone 0.5 mg/0.5 mL iSecure Syringe IVPUSH PRN ×2 (05:36→12:13)
--- NOTE | 2017-04-06 06:20 | NUR ---
Respiratory/Pain management/Diet SPO2 90-94% on High Flow. Periods of decreased SPO2 with activity, however quickly recovered. Patient was able to tolerate longer periods of pain control, without medication. Rested for extended periods, with eyes closed. Did not display increase in anxiety, no medications given. Pt. did expresses confusion r/t dietary restrictions (diabetic protocol) and desires more information/education about changes prior to d/c home. VSS. Tele: SR in upper 80's to 90's. Report given to on coming RN.
[2017-04-06] MEDS: Insulin LISPRO 300 Unit/3 mL Inj SUBQ SCH ×4 (08:00→21:53)
[2017-04-06] MEDS: Cefepime 1,000 MG in Dextrose 5% Minibag Plus 50 ML IV SCH ×2 (08:50→21:36)
[2017-04-06] MEDS: Polyethylene Glycol (PEG) 17 Gm Powder PO PRN (08:55)
[2017-04-06] MEDS: MethylprednisoLONE Sodium Succinate 40 mg/mL Inj IVPUSH SCH ×2 (08:57→21:35)
[2017-04-06] MEDS: LORazepam 0.5 mg Tablet PO PRN (12:13)
--- NOTE | 2017-04-06 16:26 | PROG NOTE ---
[address] [address] PROGRESS NOTE PATIENT: JONO RODNEY : 1960 MR#: [id number] ADMIT: 03/25/2017 JOB ID: [id number] DATE: 04/06/2017 PULMONARY FOLLOW UP NOTE: PROBLEMS: 1. Acute exacerbation of DIP/PIP zone caps. 2. Nicotine addiction. 3. DVT. 4. Osteoarthritis, right hip. SUBJECTIVE: Breathing a bit more comfortably. Still with some cough. Thinks there are secretions but unable to bring them up. Very anxious to have hip surgery done so that she can be ambulatory. Using Acapella. No particular results. Appetite is "too good." OBJECTIVE: Temperature 37, pulse 85-95, respiratory rate 13, blood pressure 132/67, O2 sat on 6 L is 89%-92%. O2 sat on high flow at 40 L a minute and an FiO2 0.445 is 97%. General appearance: Awake, alert, animated. Carrying on a snappy repertoire. Chest with fairly good breath sounds. Some inspiratory high-pitched pulmonary adventitial sounds in the lower lobes bilaterally. Relatively clear at the upper lung vegas. Maybe a few crackles in the mid and lower lung ve[place]. No use of accessory muscles. Heart: Regular rhythm. Heart tones normal. Abdomen is soft. Bowel tones present. Extremities: No pretibial edema. LABORATORY: Shows a white count of 8200. Differential not available. Hemoglobin stable at 13.9. Platelet count rising at 467,000. Sodium 139, potassium 5.8 and stable. Chloride 95, CO2 is 28, BUN 41, creatinine 0.7. Glucose 208. Calcium 8.9. ASSESSMENT: Acute exacerbation of DIP. Clinically doing better. Oxygenation improving. Starting to do some walking albeit short distances. However, she is walking around her room and making it to the door. Much more positive attitude. Secretions decreasing. Would consider decreasing steroids. I think she should probably be on a slow taper. Currently is on 30 mg of Solu-Medrol twice a day. Might consider going to prednisone maybe 50 a day in a day or two and then decreasing maybe 5 mg a week until down to 20 mg a day and then reassess the situation. 1. With regard to antibiotics, we have not particularly grown anything out. Would prefer to avoid quinolones due to the possibility of Achilles tendon rupture with steroids and quinolones. Frankly do not see that she needs to be on antibiotics as an outpatient. Just utilize a slow taper of steroids with followup with both Pulmonary and Orthopedics to arrange for a tentative surgical date. 2. DVT. Taking rivaroxaban. Seems to be doing reasonably well. At this point, I think she can be discharged based on her social needs. Would do the steroid taper as above. Will stop following her on a regular basis. If any questions or problems arise, please feel free to contact the pulmonary service. Again, thank you so much for involving the Pulmonary service in the care of this most engaging individual.
--- NOTE | 2017-04-06 16:45 | NUR ---
Social Work: Continued Discharge Planning D: Pt discussed in am rounds. Pt's respiratory status is improving however still requiring hospitalization. Discharge disposition still remains unknown. Per PT notes on 04/04 recommendations were for SNF however this was when pt was only able to tolerate limited activity due to respiratory status. There are no current notes. PEBBLE MILL OPERATOR attempted to meet with the patient to review discharge planning. Pt was with provider and unable to speak with this PEBBLE MILL OPERATOR at this time. A: Pt who was previously living at home, Independently. P: Evolving; PEBBLE MILL OPERATOR to follow up with provider tomorrow in multidisciplinary rounds regarding pt's discharge needs and to follow up with the patient re: d/c planning. OSKAR Foy
--- NOTE | 2017-04-06 18:46 | PCM.PNMED ---
Subjective Date of Service Apr 06, 2017 Subjective Subjective: Patient seen and examined while lying in bed. Patient states that she remains short of breath. Patient has been progressively weaned. As of today she is off high flow oxygen and placed on nasal cannula. Events Overnight: No acute events overnight. ROS: Short of breath. Denies fever/chills, nausea/vomiting, headache, weakness , abdominal pain, chest pain, increased swelling in hands or feet. Exam Vital Signs Vital Sign - Last Date Time Temp Pulse Resp B/P Pulse Ox O2 Delivery O2 Flow Rate FiO2 04/06/17 18:15 Supplement Oxygen 04/06/17 16:58 37.0 86 16 136/83 94 6.00 04/06/17 08:25 40 Intake and Output 04/05/17 04/05/17 04/06/17 Cumulative From/Thru 15:00 23:00 07:00 03/25/17 15:55 - 04/06/17 05:21 Intake Total 850 ml 400 ml 19246 ml Output Total 1200 ml 1200 ml 63534 ml Balance -350 ml -800 ml -4605 ml Intake Oral 800 ml 400 ml 29888 ml IV Total 50 ml 9922 ml Output Urine Total 1200 ml 1200 ml 34057 ml # Bowel Movements 0 0 Exam General: No acute distress, well-developed, well-nourished HEENT: Normocephalic, atraumatic. External ears without defect. Pupils equal, round, and reactive to light and accommodation. Anicteric sclerae, moist conjunctivae. Cardiovascular: Regular rate and rhythm with + systolic murmur auscultated, rubs , or gallops appreciated Pulmonary: Coarse breath sounds throughout with bilateral crackles; and inspiratory/expiratory wheezing increased respiratory effort. Currently on nasal cannula. Abdomen: Bowel tones present. Soft, obese. nontender, nondistended. Extremities: No clubbing, cyanosis, no edema, or erythema Skin: Normal temperature, turgor, and texture; no rash, ulcers, or subcutaneous nodules appreciated. Neurological: Cranial nerves grossly intact. Reflexes, coordination, and sensory function within normal limits. Normal muscle strength, tone, and bulk. Psychiatric: Depressed mood and affect. Alert and oriented to person, place, and time IVs and Medications Medications Reviewed: Medications were reviewed in detail Medications High risk medications include: Ativan dilaudid percocet morphine xarelto Lab and Diagnostics Result Diagram: 04/06/1730904/06/17309 Microbiology Streptococcus pneumoniae urine antigen negative X-Rays, CTs and MRIs Chest x-ray X-RAY CHEST ONE VIEW, PORTABLE IMPRESSION: Generalized pulmonary edema pattern, statistically most likely cardiogenic in origin. Moderate cardiomegaly. Dictated by: Lennox Melgoza M.D. on 04/02/2017 at 8:00 Renal ultrasound IMPRESSION: A post-renal cause is not identified for acute renal insufficiency. Dictated by: Mark Hyde M.D. on 03/25/2017 at 21:03 US Veinous Leg Duplex Unilateral IMPRESSION: Bifid popliteal vein present with occlusive venous thrombus within one of the vessels. Additional Diagnostics US RENAL SONOGRAM IMPRESSION: A post-renal cause is not identified for acute renal insufficiency. Dictated by: Mark Hyde M.D. on 03/25/2017 at 21:03 Approved by: Mark Hyde M.D. on 03/25/2017 at 21:05 . 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 Patient continues to require High flow nasal cannula, with decreasing oxygen needs. Acute on chronic respiratory failure secondary to DIP, present on admission. Ongoing. -Patient has severe chronic pulmonary congestion, Last Echo was 02/15/17 showing EF 60-65% with normal E to A ratio; therefore, patient does not have CHF -Patient weaned off high flow and is tolerating nasal cannula 15L (04/06/17) - Continue to titrate down O2 needs - Pulmonology following Occlusive right DVT, present on admission. Ongoing. -Likely secondary to decreased mobility secondary to right hip pain -Continue therapy with Xarelto Acute kidney failure, present on admission. Resolved. -Unclear etiology may be secondary to metformin (continuing to hold metformin) - Nephrology signed off (03/29/17) -Continue to monitor closely Pulmonary issues, including DIP, COPD, pulmonary edema, pneumonia, present on admission. Ongoing. - Continuing therapy with IV Solu-Medrol, decreased 04/05 from 60 to 30 mg BID - Patient weaned from high flow onto nasal cannula. Currently tolerating 15 L - Continue cefepime, infectious focus unlikely but cannot be ruled out. - Continue high flow oxygen, Wean as tolerated, under the direction of Pulmonology - Incentive spirometry/Acapella, mobilization - Pulmonology following Hyperkalemia, not present on admission. Active. -New-onset, borderline elevation -Continue to monitor closely Non-insulin dependent diabetes type II, present on admission. Ongoing grade -Continue to hold metformin -Continue insulin for blood sugar control while the patient remains on Solu- Medrol -Lantus currently to 30 units, glucose levels appear to be dropping into the 80s in the morning prior to breakfast, the rest of her random glucose draws remain high. - Continue Insulin sliding scale -Continue to monitor closely Leukocytosis, not present on admission. Active. -Likely secondary to pneumonia and/or glucocorticoid use -Stable, continue to monitor Depression/PTSD, present on admission. Ongoing. -Continue fluoxetine, lorazepam, prazosin, propanolol, hydroxyzine Hypertension, chronic. Slightly labile and elevated. -Continue lisinopril -Hold loop diuretic as patient has likely achieved maximum benefit at this point. Coronary artery disease, present on admission. Stable. -Continue aspirin and atorvastatin Chronic pain, present on admission. Stable. -Continue methadone and gabapentin History of polysubstance abuse. Stable. -Previously used heroin, marijuana, cocaine, and methamphetamines currently has not used in over 2 years Nicotine dependence, present on admission. Stable. -Currently using tobacco. She has been educated numerous times -Nicotine patch as needed Disposition: Discharged to home when patient is able to wean off high flow oxygen, patient successfully weaned down to nasal cannula. If the patient can wean down to 2-3 L O2 or less she may be discharged at that point. GI Prophylaxis: Not indicated VTE Prophylaxis: Other (Heparin drip) Resuscitation Status: CPR: Attempt Resuscitation Attending Statement The patient was seen and examined together with Dr. Levi on 04/06/17 and I have added additional information to the note above. David Levi DO Apr 06, 2017 18:46 Mercedes Valle DO Apr 07, 2017 16:28 GI Prophylaxis: Not indicated VTE Prophylaxis: Other (Heparin drip) Resuscitation Status: CPR: Attempt Resuscitation David Levi DO Apr 06, 2017 18:46
--- NOTE | 2017-04-06 19:39 | NUR ---
Activity/constipation Cardiac: Pt denies CP, Tele: SR 80s-100 Resp: Pt reports intermittent SOB especially with activity. High flow titrated down this AM to 30L 40% spo2 high flow, SPO2 93%, O2 changed to NC 6L. Desats to 74% when NC taken off. GI/: Denies abd pain, n/v. senna and mirilax given for constipation on am shift, Kayexelate ordered and given. Pt able to mobilize to BR. Mckeon DC'd per order Neuro: a/o, garcia, verbalizes needs, ambulated with pt in room, pt up in chair for all meals, O2 extensions added so pt can reach BR.
[2017-04-06] MEDS: Insulin GLARgine 100 Unit/mL Syringe SUBQ SCH (21:46)
[2017-04-07] VITALS (10 sets, daily range): BP systolic 106–156; BP diastolic 64–84; PULSE 89–125; RESP 16–24; O2SAT 90–97
[2017-04-07] MEDS: oxyCODONE-Acetamin 5-325 mg Tablet PO PRN ×4 (02:55→20:41)
[2017-04-07] MEDS: LORazepam 0.5 mg Tablet PO PRN ×3 (03:00→20:41)
--- NOTE | 2017-04-07 06:09 | NUR ---
Activity/Respiratory Assumed care ~1930. Pt up oob to BR independently, with FWW. Was able to move bowels this shift (x3). SPO2 moderately decreased into 80's when up, however was able to recovery quickly with rest. On 6L via NC. Further education with patient was given regarding diet changes in relation to glucose levels, verbalized some teach back and requested more education prior to discharge (with adaptive physical educator). VSS. Tele: SR in 90's. Report given to on coming RN.
[2017-04-07 06:14] LABS: Mean Corpuscular Hemoglobin 27.5 pg (27.0-35.0); Mean Corpuscular Volume 85.8 fL (81-100)
[2017-04-07] MEDS: Insulin LISPRO 300 Unit/3 mL Inj SUBQ SCH ×4 (08:00→20:56)
[2017-04-07] MEDS: MethylprednisoLONE Sodium Succinate 40 mg/mL Inj IVPUSH SCH ×2 (08:53→20:39)
[2017-04-07] MEDS: Cefepime 1,000 MG in Dextrose 5% Minibag Plus 50 ML IV SCH (08:53)
[2017-04-07] MEDS: HYDROmorphone 0.5 mg/0.5 mL iSecure Syringe IVPUSH PRN ×2 (13:39→20:42)
--- NOTE | 2017-04-07 15:04 | NUR ---
Social Work: Continued Discharge Planning/Multidisciplinary Rounds D: Pt discussed in multidisciplinary rounds. Pt is not yet medically stable for discharge however she is improving. Pt's discharge needs are unknown at this time due to her increased 02 needs. CASSANDRA DEVELOPER met with the patient at bedside to discuss discharge planning. The patient states that she intends to discharge home when she is stable. She has been primarily using a w/c for ambulation due to her hip pain. The patient states that she is able to transfer independently and only uses it because of pain. Pt reports that she formerly had 77 hours/month of [employer] however she no longer has a caregiver and does not know why. The pt declined to have CASSANDRA DEVELOPER contact her CARSON CM, Wanda Guevara, to inquire about this. The pt states that she intends to discharge home and that her parents, neighbors and friends will all be helping her. Pt states that they will assist her getting groceries, cooking and all of the other things her former caregiver did for her. A: Pt who lives at home, alone and is using a w/c for ambulation P: Anticipate pt to discharge home via POV and no further sw needs; pt's father will transport her once she is medically stable. CASSANDRA DEVELOPER to continue to follow to assess for unmet discharge needs. OSKAR Foy
--- NOTE | 2017-04-07 17:03 | PCM.PNMED ---
Subjective Date of Service Apr 07, 2017 Subjective Subjective: Patient laying in bed on exam, remains mildly short of breath. Anxious to be discharged from the hospital. Events Overnight: No acute events overnight. ROS: Shortness of breath. Denies fever/chills, nausea/vomiting, headache, weakness, abdominal pain, chest pain, shortness of breath, increased swelling in hands or feet. Exam Vital Signs Vital Sign - Last Date Time Temp Pulse Resp B/P Pulse Ox O2 Delivery O2 Flow Rate FiO2 04/07/17 16:29 36.7 106 16 117/64 96 Nasal Cannula 4.00 04/06/17 08:25 40 Intake and Output 04/06/17 04/06/17 04/07/17 Cumulative From/Thru 15:00 23:00 07:00 03/25/17 15:55 - 04/07/17 05:25 Intake Total 1200 ml 350 ml 88695 ml Output Total 950 ml 99228 ml Balance 250 ml 350 ml -4005 ml Intake Oral 1200 ml 300 ml 23524 ml IV Total 50 ml 9972 ml Output Urine Total 950 ml 85005 ml # Voids 3 3 # Bowel Movements 0 Exam General: No acute distress, well-developed, well-nourished HEENT: Normocephalic, atraumatic. External ears without defect. Pupils equal, round, and reactive to light and accommodation. Anicteric sclerae, moist conjunctivae. Cardiovascular: Regular rate and rhythm with + systolic murmur auscultated, rubs , or gallops appreciated Pulmonary: Coarse breath sounds throughout with bilateral crackles; and inspiratory/expiratory wheezing increased respiratory effort. Currently on nasal cannula. Abdomen: Bowel tones present. Soft, obese. nontender, nondistended. Extremities: + clubbing, no cyanosis, no edema, or erythema Skin: Normal temperature, turgor, and texture; no rash, ulcers, or subcutaneous nodules appreciated. Neurological: Cranial nerves grossly intact. Reflexes, coordination, and sensory function within normal limits. Normal muscle strength, tone, and bulk. Psychiatric: Depressed mood and affect. Alert and oriented to person, place, and time IVs and Medications Medications Reviewed: Medications were reviewed in detail Medications High risk medications include: Ativan dilaudid percocet morphine xarelto Lab and Diagnostics Result Diagram: 04/07/17 0610 04/07/17 0610 Microbiology Streptococcus pneumoniae urine antigen negative X-Rays, CTs and MRIs Chest x-ray X-RAY CHEST ONE VIEW, PORTABLE IMPRESSION: Generalized pulmonary edema pattern, statistically most likely cardiogenic in origin. Moderate cardiomegaly. Dictated by: Lennox Melgoza M.D. on 04/02/2017 at 8:00 Renal ultrasound IMPRESSION: A post-renal cause is not identified for acute renal insufficiency. Dictated by: Mark Hyde M.D. on 03/25/2017 at 21:03 US Veinous Leg Duplex Unilateral IMPRESSION: Bifid popliteal vein present with occlusive venous thrombus within one of the vessels. Additional Diagnostics US RENAL SONOGRAM IMPRESSION: A post-renal cause is not identified for acute renal insufficiency. Dictated by: Mark Hyde M.D. on 03/25/2017 at 21:03 Approved by: Mark Hyde M.D. on 03/25/2017 at 21:05 . 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 Patient continues to require High flow nasal cannula, with decreasing oxygen needs. Acute on chronic respiratory failure secondary to DIP, present on admission. Ongoing. -Patient has severe chronic pulmonary congestion, Last Echo was 02/15/17 showing EF 60-65% with normal E to A ratio; therefore, patient does not have CHF -Patient weaned off high flow on 04/06 and is currently tolerating 6Lnasal cannula - Continue to titrate down O2 needs - Pulmonology following Occlusive right DVT, present on admission. Ongoing. -Likely secondary to decreased mobility secondary to right hip pain -Continue therapy with Xarelto Acute kidney failure, present on admission. Resolved. -Unclear etiology may be secondary to metformin (continuing to hold metformin) - Nephrology signed off (03/29/17) -Continue to monitor closely Pulmonary issues, including DIP, COPD, pulmonary edema, pneumonia, present on admission. Ongoing. - Continuing therapy with IV Solu-Medrol, decreased 04/05 from 60 to 30 mg BID - Patient weaned from high flow onto nasal cannula. Currently tolerating 6L - Continue high flow oxygen, Wean as tolerated, under the direction of Pulmonology - Incentive spirometry/Acapella, mobilization - Pulmonology following Hyperkalemia, not present on admission. Active. -New-onset, borderline elevation -Continue to monitor closely Non-insulin dependent diabetes type II, present on admission. Ongoing -Continue to hold metformin -Continue insulin for blood sugar control while the patient remains on Solu- Medrol -Lantus currently to 30 units, glucose levels appear to be dropping into the 80s in the morning prior to breakfast, the rest of her random glucose draws remain high. -Continue Insulin sliding scale -Continue to monitor closely Leukocytosis, not present on admission. Active. -Likely secondary to pneumonia and/or glucocorticoid use -Stable, continue to monitor Depression/PTSD, present on admission. Ongoing. -Continue fluoxetine, lorazepam, prazosin, propanolol, hydroxyzine Hypertension, chronic. Slightly labile and elevated. -Continue lisinopril -Hold loop diuretic as patient has likely achieved maximum benefit at this point. Coronary artery disease, present on admission. Stable. -Continue aspirin and atorvastatin Chronic pain, present on admission. Stable. -Continue methadone and gabapentin History of polysubstance abuse. Stable. -Previously used heroin, marijuana, cocaine, and methamphetamines currently has not used in over 2 years Nicotine dependence, present on admission. Stable. -Currently using tobacco. She has been educated numerous times -Nicotine patch as needed Disposition: Discharged to home when patient is able to wean off high flow oxygen, patient successfully weaned down to nasal cannula. If the patient can wean down to 2-3 L O2 at rest or less she may be discharged at that point. GI Prophylaxis: Not indicated VTE Prophylaxis: Other (Heparin drip) Resuscitation Status: CPR: Attempt Resuscitation Attending Statement The patient was seen and examined together with Dr. Levi on 04/07/17 and I have added additional information to the note above. David Levi DO Apr 07, 2017 17:03 Mercedes Valle DO Apr 11, 2017 12:37
--- NOTE | 2017-04-07 19:41 | NUR ---
O2/activity Cardiac: Pt denies CP, Tele: SR 80s-100 Resp: Pt reports SOB with activity. O2 titrated down from 6L NC to 4L NC when at rest. Back to 6L for walking and going to the bathroom. Pt desats to mid 70s when active, but recovers quickly at rest. SPO2 low 90s on 4L NC. GI/: Denies n/v, Pt had BM last night after getting kayexelate. Neuro: a/o, garcia, verbalizes needs. Pt has been ambulating much more today, walking in the [facility] with staff.
[2017-04-07] MEDS: Polyethylene Glycol (PEG) 17 Gm Powder PO SCH (20:30)
[2017-04-07] MEDS: Insulin GLARgine 100 Unit/mL Syringe SUBQ SCH (20:48)
[2017-04-08] VITALS (10 sets, daily range): BP systolic 118–169; BP diastolic 74–78; PULSE 79–112; RESP 18–22; O2SAT 86–93
[2017-04-08 02:44] LABS: Mean Corpuscular Hemoglobin 27.8 pg (27.0-35.0); Mean Corpuscular Volume 86.9 fL (81-100)
[2017-04-08] MEDS: HYDROmorphone 0.5 mg/0.5 mL iSecure Syringe IVPUSH PRN (03:37)
[2017-04-08] MEDS: LORazepam 0.5 mg Tablet PO PRN (03:38)
[2017-04-08] MEDS: oxyCODONE-Acetamin 5-325 mg Tablet PO PRN ×4 (03:38→22:10)
--- NOTE | 2017-04-08 06:17 | NUR ---
Respiratory / Pain Patient on 6L NC at beginning of shift; with ambulation to BR, patient desaturates to 79-80% on 6L, and recovers to low 90s after several minutes rest. At rest, patient can be on 4-5L NC with SpO2 90-93%. Pt reports significant dyspnea on exertion, and significant pain with movement. With any talking, eating, or repositioning in bed, patient desaturates to low-mid 80s on 5L NC. Pt states pain at 9/10 upon assessments - requests Ativan, Percocet, and Dilaudid at Q6H intervals to be at the same time for maximal effect. Pt able to sleep between interventions. VSS, tele ST 110s. CPOX when asleep.
[2017-04-08] MEDS: Insulin LISPRO 300 Unit/3 mL Inj SUBQ SCH ×4 (08:00→20:23)
[2017-04-08] MEDS: Polyethylene Glycol (PEG) 17 Gm Powder PO SCH ×3 (08:30→20:23)
[2017-04-08] MEDS: MethylprednisoLONE Sodium Succinate 40 mg/mL Inj IVPUSH SCH ×2 (08:59→20:22)
[2017-04-08] MEDS: Lactulose 20 Gm/30 mL 30 mL Syrup PO SCH ×3 (09:00→20:22)
[2017-04-08] MEDS: LORazepam 1 mg Tablet PO PRN ×2 (12:16→22:09)
--- NOTE | 2017-04-08 16:43 | NUR ---
Diet Pt has been asking for pudding, icecream, adali crackers, saltines for most of the day. Offered SF options and the pt declined. Pt became aggitated around 1600 stating she was starving and was going to wheel herself out if we did not give her ice cream. notified and is discussing with the Pt about her blood sugars and why we are limiting her sugar/carb intake.
--- NOTE | 2017-04-08 19:43 | PCM.PNMED ---
Subjective Date of Service Apr 08, 2017 Subjective Subjective: Patient sitting on the side of the bed on exam, states that she continues to be short of breath. I discussed with the patient plans for transfer home, she has concerns about being at home on oxygen especially trying to get to the methadone clinic multiple times a week. We discussed that we will wean her opioid medications down here in the hospital so that she will be ready to go home and not be in withdrawals at that time. We also discussed the importance of keeping track of her blood sugars at home and not smoking. Events Overnight: No acute events overnight. ROS: Short of breath. Denies fever/chills, nausea/vomiting, headache, weakness, abdominal pain, chest pain, increased swelling in hands or feet. Exam Vital Signs Vital Sign - Last Date Time Temp Pulse Resp B/P Pulse Ox O2 Delivery O2 Flow Rate FiO2 04/08/17 12:36 36.7 111 18 130/75 91 Nasal Cannula 4.00 04/06/17 08:25 40 Intake and Output 04/07/17 04/07/17 04/08/17 Cumulative From/Thru 15:00 23:00 07:00 03/25/17 15:55 - 04/08/17 06:29 Intake Total 1360 ml 840 ml 27081 ml Output Total 900 ml 1200 ml 85565 ml Balance 460 ml -360 ml -3905 ml Intake Oral 1360 ml 840 ml 17158 ml IV Total 9972 ml Output Urine Total 900 ml 1200 ml 15501 ml # Voids 1 3 7 # Bowel Movements 0 IVs and Medications Medications Reviewed: Medications were reviewed in detail Medications High-risk medications include: Ativan Percocet Methadone Xarelto Lab and Diagnostics Result Diagram: 04/08/175 04/08/17 022 Microbiology Streptococcus pneumoniae urine antigen negative X-Rays, CTs and MRIs Chest x-ray X-RAY CHEST ONE VIEW, PORTABLE IMPRESSION: Generalized pulmonary edema pattern, statistically most likely cardiogenic in origin. Moderate cardiomegaly. Dictated by: Lennox Melgoza M.D. on 04/02/2017 at 8:00 Renal ultrasound IMPRESSION: A post-renal cause is not identified for acute renal insufficiency. Dictated by: Mark Hyde M.D. on 03/25/2017 at 21:03 US Veinous Leg Duplex Unilateral IMPRESSION: Bifid popliteal vein present with occlusive venous thrombus within one of the vessels. Additional Diagnostics US RENAL SONOGRAM IMPRESSION: A post-renal cause is not identified for acute renal insufficiency. Dictated by: Mark Hyde M.D. on 03/25/2017 at 21:03 Approved by: Mark Hyde M.D. on 03/25/2017 at 21:05 . 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 Patient continues to require High flow nasal cannula, with decreasing oxygen needs. Acute on chronic respiratory failure secondary to DIP, present on admission. Ongoing. -Patient has severe chronic pulmonary congestion, Last Echo was 02/15/17 showing EF 60-65% with normal E to A ratio; therefore, patient does not have CHF -Patient weaned off high flow on 04/06 and is currently tolerating 4.5L nasal cannula - Continue to titrate down O2 needs - Pulmonology following Occlusive right DVT, present on admission. Ongoing. -Likely secondary to decreased mobility secondary to right hip pain -Continue therapy with Xarelto, begin daily dosing with 20 mg on 04/12 Acute kidney failure, present on admission. Resolved. -Unclear etiology may be secondary to metformin (continuing to hold metformin) - Nephrology signed off (03/29/17) -Continue to monitor closely Pulmonary issues, including DIP, COPD, pulmonary edema, pneumonia, present on admission. Ongoing. - Starting 04/08 PO prednisone 60 mg daily - Patient weaned from high flow onto nasal cannula. Currently tolerating 4.5 L - Continue oxygen supplementation, wean as tolerated, under the direction of Pulmonology - Incentive spirometry/Acapella, mobilization - Pulmonology following Hyperkalemia, not present on admission. Active. -New-onset, borderline elevation -Continue to monitor closely Non-insulin dependent diabetes type II, present on admission. Ongoing -Continue to hold metformin -Continue insulin for blood sugar control while the patient remains on prednisone -Lantus currently to 30 units, glucose levels appear to be dropping into the 80s in the morning prior to breakfast, the rest of her random glucose draws remain high. -Continue Insulin sliding scale -Continue to monitor closely -Patient will need diabetes education upon discharge. Leukocytosis, not present on admission. Active. -Secondary to pneumonia and/or glucocorticoid use -Stable, continue to monitor Depression/PTSD, present on admission. Ongoing. -Continue fluoxetine, lorazepam, prazosin, propanolol, hydroxyzine Hypertension, chronic. Slightly labile and elevated. -Continue lisinopril -Hold loop diuretic as patient has likely achieved maximum benefit at this point. Coronary artery disease, present on admission. Stable. -Continue aspirin and atorvastatin Chronic pain, present on admission. Stable. -Continue methadone and gabapentin History of polysubstance abuse. Stable. -Previously used heroin, marijuana, cocaine, and methamphetamines currently has not used in over 2 years -Since admission to the hospital she has been on high doses of opioids for pain. She has been weaning herself off of these doses over the last week, -Dilaudid was discontinued today and Ativan dosing was changed to twice a day Nicotine dependence, present on admission. Stable. -Currently using tobacco. She has been educated numerous times -Nicotine patch as needed Disposition: Discharged to home when patient is able to wean off high flow oxygen, patient successfully weaned down to nasal cannula. If the patient can wean down to 2-3 L O2 or less she may be discharged at that point. GI Prophylaxis: Not indicated VTE Prophylaxis: Other (Xarelto) Resuscitation Status: CPR: Attempt Resuscitation Attending Statement The patient was seen and examined together with Dr. Levi on 04/08/17 and I have added additional information to the note above. David Levi DO Apr 08, 2017 19:43 Mercedes Valle DO Apr 11, 2017 18:01
[2017-04-08] MEDS: Insulin GLARgine 100 Unit/mL Syringe SUBQ SCH (20:22)
[2017-04-08] MEDS ORDERED: LORazepam 0.5 mg Tablet PO PRN (20:30)
[2017-04-09] VITALS (9 sets, daily range): BP systolic 113–156; BP diastolic 69–94; PULSE 93–115; RESP 18; O2SAT 87–96
--- NOTE | 2017-04-09 06:32 | NUR ---
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 BS were 149 @ HS and 211 on recheck. VSS, sating low 90's on 4L NC, no other issues noted.
[2017-04-09] MEDS: Insulin LISPRO 300 Unit/3 mL Inj SUBQ SCH ×4 (08:00→21:00)
[2017-04-09] MEDS: Polyethylene Glycol (PEG) 17 Gm Powder PO SCH ×2 (08:30→14:09)
[2017-04-09] MEDS: Lactulose 20 Gm/30 mL 30 mL Syrup PO SCH ×3 (09:08→20:05)
[2017-04-09] MEDS: LORazepam 1 mg Tablet PO PRN ×2 (09:10→20:06)
[2017-04-09] MEDS: oxyCODONE-Acetamin 5-325 mg Tablet PO PRN ×3 (09:11→20:07)
[2017-04-09] MEDS: predniSONE 20 mg Tablet PO SCH (09:16)
--- NOTE | 2017-04-09 14:44 | PCM.PNMED ---
Subjective Date of Service Apr 09, 2017 Subjective Subjective: Patient laying in bed on exam, states that she is feeling fatigued and short of breath. Pulse ox showed 98% at that time, and the patient's oxygen had been turned up to 6 L. Events Overnight: No acute events overnight. ROS: Shortness of breath Denies fever/chills, nausea/vomiting, headache, weakness, abdominal pain, chest pain, increased swelling in hands or feet. Exam Vital Signs Vital Sign - Last Date Time Temp Pulse Resp B/P Pulse Ox O2 Delivery O2 Flow Rate FiO2 04/09/17 12:37 36.8 110 18 113/69 91 Nasal Cannula 4.00 04/06/17 08:25 40 Intake and Output 04/08/17 04/08/17 04/09/17 Cumulative From/Thru 15:00 23:00 07:00 03/25/17 15:55 - 04/09/17 06:30 Intake Total 998 ml 786 ml 34369 ml Output Total 1000 ml 1000 ml 92451 ml Balance -2 ml -214 ml -4121 ml Intake Oral 998 ml 786 ml 89448 ml IV Total 9972 ml Output Urine Total 1000 ml 1000 ml 37500 ml # Voids 1 8 # Bowel Movements 1 1 Exam General: No acute distress, well-developed, well-nourished HEENT: Normocephalic, atraumatic. External ears without defect. Pupils equal, round, and reactive to light and accommodation. Anicteric sclerae, moist conjunctivae. Cardiovascular: Regular rate and rhythm with moderate systolic murmur appreciated, no rubs or gallops appreciated Pulmonary: Coarse breath sounds throughout with bilateral crackles; and inspiratory/expiratory wheezing increased respiratory effort. Currently on nasal cannula. Abdomen: Bowel tones present. Soft, obese. nontender, nondistended. Extremities: No cyanosis, edema, or erythema Skin: Normal temperature, turgor, and texture; no rash, ulcers, or subcutaneous nodules appreciated. Neurological: Cranial nerves grossly intact. Reflexes, coordination, and sensory function within normal limits. Normal muscle strength, tone, and bulk. Psychiatric: Depressed mood and affect. Alert and oriented to person, place, and time IVs and Medications Medications Reviewed: Medications were reviewed in detail Medications High risk medications include: Ativan Xarelto Percocet Methadone Lab and Diagnostics Result Diagram: 04/08/17 0225 04/09/17 0305 Microbiology Streptococcus pneumoniae urine antigen negative X-Rays, CTs and MRIs Chest x-ray X-RAY CHEST ONE VIEW, PORTABLE IMPRESSION: Generalized pulmonary edema pattern, statistically most likely cardiogenic in origin. Moderate cardiomegaly. Dictated by: Lennox Melgoza M.D. on 04/02/2017 at 8:00 Renal ultrasound IMPRESSION: A post-renal cause is not identified for acute renal insufficiency. Dictated by: Mark Hyde M.D. on 03/25/2017 at 21:03 US Veinous Leg Duplex Unilateral IMPRESSION: Bifid popliteal vein present with occlusive venous thrombus within one of the vessels. Additional Diagnostics US RENAL SONOGRAM IMPRESSION: A post-renal cause is not identified for acute renal insufficiency. Dictated by: Mark Hyde M.D. on 03/25/2017 at 21:03 Approved by: Mark Hyde M.D. on 03/25/2017 at 21:05 . 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 Patient continues to require oxygen with decreasing oxygen needs. Acute on chronic respiratory failure secondary to DIP, present on admission. Ongoing. -Patient has severe chronic pulmonary congestion, Last Echo was 02/15/17 showing EF 60-65% with normal E to A ratio; therefore, patient does not have CHF -Patient weaned off high flow on 04/06 and is currently tolerating 4.0L nasal cannula - Continue to titrate down O2 needs - Pulmonology following Occlusive right DVT, present on admission. Ongoing. -Likely secondary to decreased mobility secondary to right hip pain -Continue therapy with Xarelto, begin daily dosing with 20 mg on 04/12 Acute kidney failure, present on admission. Resolved. -Unclear etiology may be secondary to metformin (continuing to hold metformin) - Nephrology signed off (03/29/17) -Continue to monitor closely Pulmonary issues, including DIP, COPD, pulmonary edema, pneumonia, present on admission. Ongoing. - Starting 04/08 PO prednisone 60 mg daily - Patient weaned from high flow onto nasal cannula. Currently tolerating 4.0 L - Continue oxygen supplementation, wean as tolerated, under the direction of Pulmonology - Incentive spirometry/Acapella, mobilization - Pulmonology following Hyperkalemia, not present on admission. Active. -New-onset, borderline elevation -Continue to monitor closely Non-insulin dependent diabetes type II, present on admission. Ongoing grade -Continue to hold metformin -Continue insulin for blood sugar control while the patient remains on prednisone -Lantus currently to 30 units, glucose levels appear to be dropping into the 80s in the morning prior to breakfast, the rest of her random glucose draws remain high. -Continue Insulin sliding scale -Continue to monitor closely -Patient will need diabetes education upon discharge. Leukocytosis, not present on admission. Active. -Secondary prednisone use -Stable Depression/PTSD, present on admission. Ongoing. -Continue fluoxetine, lorazepam, prazosin, propanolol, hydroxyzine Hypertension, chronic. Slightly labile and elevated. -Continue lisinopril -Hold loop diuretic as patient has likely achieved maximum benefit at this point. Coronary artery disease, present on admission. Stable. -Continue aspirin and atorvastatin Chronic pain, present on admission. Stable. -Continue methadone and gabapentin History of polysubstance abuse. Stable. -Previously used heroin, marijuana, cocaine, and methamphetamines currently has not used in over 2 years -Since admission to the hospital she has been on high doses of opioids for pain. She has been weaning herself off of these doses over the last week, -Dilaudid was discontinued today and Ativan dosing was changed to twice a day Nicotine dependence, present on admission. Stable. -Currently using tobacco. She has been educated numerous times -Nicotine patch as needed Disposition: Patient successfully weaned down to nasal cannula however she is still having difficulties maintaining oxygen in the mid 80s with movement. At this time the goal is to titrate the patient to an acceptable level with a max of 4 L with motion and the patient will be ready to go home. At this time the patient does not want discharged to SNF but this may be the next best option for the patient at this time. We will continue to monitor and make oxygen need adjustments in medication adjustments as necessary. GI Prophylaxis: Not indicated VTE Prophylaxis: Other (Heparin drip) Resuscitation Status: CPR: Attempt Resuscitation Attending Statement The patient was seen and examined together with Dr. Levi on 04/09/17 and I have added additional information to the note above. David Levi DO Apr 09, 2017 14:44 Mercedes Valle DO Apr 10, 2017 12:45
[2017-04-09] MEDS ORDERED: Polyethylene Glycol (PEG) 17 Gm Powder PO PRN (15:05)
--- NOTE | 2017-04-09 15:10 | NUR ---
Lactulose Pt refused 1430 dose of Lactulose that was scheduled. Education given as to why the medication was ordered and her K level being 5.8. Pt still refusing and willing to take it later but for now wants to sleep and states shes had 3 BM's today. Will let MD know when rounding.
[2017-04-09] MEDS: Insulin GLARgine 100 Unit/mL Syringe SUBQ SCH (21:20)
[2017-04-10] VITALS (12 sets, daily range): BP systolic 105–123; BP diastolic 64–74; PULSE 92–117; RESP 18–22; O2SAT 88–98
[2017-04-10] MEDS: oxyCODONE-Acetamin 5-325 mg Tablet PO PRN ×3 (02:11→17:14)
--- NOTE | 2017-04-10 04:25 | NUR ---
O2 Pt de-sated to 50-60% SPO2 sustained after a trip to the bathroom. Pt's O2 was increased to 15L with a 5 min very slow recovery back to low 90's. Pt was sitting on edge of bed and able to communicate. Pt back @ 4L NC sating low 90's.
[2017-04-10] MEDS: Insulin LISPRO 300 Unit/3 mL Inj SUBQ SCH ×4 (08:00→20:36)
[2017-04-10] MEDS: Lactulose 20 Gm/30 mL 30 mL Syrup PO SCH ×3 (08:30→20:28)
[2017-04-10] MEDS: predniSONE 20 mg Tablet PO SCH (08:48)
[2017-04-10] MEDS: LORazepam 0.5 mg Tablet PO PRN (12:37)
--- NOTE | 2017-04-10 17:37 | PCM.PNMED ---
Subjective Date of Service Apr 10, 2017 Subjective Patient is a 56 year old woman with a PMH of DIP who presented initially with DVT now being treated for exacerbation of her underlying pulmonary condition. Today the patient states that she continues to feel incrementally improved, however she continues to suffer from DIALLO with any degree of ambulation. No significant overnight events. Comprehensive ROS negative except as listed above. Exam Vital Signs Vital Sign - Last Date Time Temp Pulse Resp B/P Pulse Ox O2 Delivery O2 Flow Rate FiO2 04/10/17 17:08 36.7 112 22 122/69 91 Nasal Cannula 3.00 04/06/17 08:25 40 Intake and Output 04/09/17 04/09/17 04/10/17 Cumulative From/Thru 14:58 22:58 06:58 03/25/17 15:55 - 04/10/17 05:37 Intake Total 936 ml 946 ml 42147 ml Output Total 150 ml 600 ml 34942 ml Balance 786 ml 346 ml -2989 ml Intake Oral 936 ml 946 ml 75128 ml IV Total 9972 ml Output Urine Total 150 ml 600 ml 18136 ml # Voids 1 9 # Bowel Movements 2 2 5 Exam Gen: A/O x3 pleasant cooperative chronically ill appearing woman Neck: Supple, non tender,, Full ROM HEENT: PERRL, EOMI, no scleral icterus, no conjunctival pallor CV: RRR, + systolic murmur no rubs or gallops Resp: Diffusely coarse breath sounds poor air movement, improved since prior exam Abd: No rebound guarding masses or tenderness Extr: No clubbing or cyanosis, mild BL LE edema Skin: Multiple excoriations diffusely about upper extremities Neuro: CN 2-12 grossly intact, no focal neurologic deficit. Psych: Pleasant and appropriate mood and affect. IVs and Medications Medications Reviewed: Medications were reviewed in detail Lab and Diagnostics Item Value Date Time Red Blood Count 4.75 mil/mm3 04/08/17224 Mean Corpuscular Volume 86.9 fL 04/08/17224 Mean Corpuscular Hemoglobin 27.8 pg 04/08/17224 Mean Corpuscular Hemoglobin Concent 32.0 % 04/08/17224 Red Cell Distribution Width 17.0 % H 04/08/17224 Estimat Glomerular Filtration Rate 120 mL/min 04/10/17 021 Result Diagram: 04/08/17225 03/13/17 0210 Microbiology Streptococcus pneumoniae urine antigen negative X-Rays, CTs and MRIs Chest x-ray X-RAY CHEST ONE VIEW, PORTABLE IMPRESSION: Generalized pulmonary edema pattern, statistically most likely cardiogenic in origin. Moderate cardiomegaly. Dictated by: Lennox Melgoza M.D. on 04/02/2017 at 8:00 Renal ultrasound IMPRESSION: A post-renal cause is not identified for acute renal insufficiency. Dictated by: Mark Hyde M.D. on 03/25/2017 at 21:03 US Veinous Leg Duplex Unilateral IMPRESSION: Bifid popliteal vein present with occlusive venous thrombus within one of the vessels. Additional Diagnostics US RENAL SONOGRAM IMPRESSION: A post-renal cause is not identified for acute renal insufficiency. Dictated by: Mark Hyde M.D. on 03/25/2017 at 21:03 Approved by: Mark Hyde M.D. on 03/25/2017 at 21:05 . 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 Patient continues to require oxygen with decreasing oxygen needs. Acute on chronic respiratory failure secondary to DIP, present on admission. Improving -Patient has severe chronic pulmonary congestion, Last Echo was 02/15/17 showing EF 60-65% with normal E to A ratio; therefore, patient does not have CHF -Patient weaned off high flow on 04/06 and is currently tolerating nasal cannula - Continue to titrate down O2 needs - Pulmonology following Occlusive right DVT, present on admission. Resolved -Likely secondary to decreased mobility secondary to right hip pain -Continue therapy with Xarelto, begin daily dosing with 20 mg on 04/12 -Swelling has resolved, pain is much improved, patient states leg is more or less at baseline Acute kidney failure, present on admission. Resolved. -Unclear etiology may be secondary to metformin (continuing to hold metformin) - Nephrology signed off (03/29/17) -Continue to monitor closely Pulmonary issues, including DIP, COPD, pulmonary edema, pneumonia, present on admission. Improving - Starting 04/08 PO prednisone 60 mg daily - Patient weaned from high flow onto nasal cannula. - Continue oxygen supplementation, wean as tolerated, under the direction of Pulmonology - Incentive spirometry/Acapella, mobilization - Pulmonology following Hyperkalemia, not present on admission. Active. -New-onset, borderline elevation -Continue to monitor closely Non-insulin dependent diabetes type II, present on admission. Active -Continue to hold metformin -Continue insulin for blood sugar control while the patient remains on prednisone -Lantus currently to 30 units, glucose levels appear to be dropping into the 80s in the morning prior to breakfast, the rest of her random glucose draws remain high. -Continue Insulin sliding scale -Continue to monitor closely -Patient will need diabetes education upon discharge. Leukocytosis, not present on admission. Active. -Secondary prednisone use -Stable Chronic conditions managed with home meds Depression/PTSD, present on admission. Active -Continue fluoxetine, lorazepam, prazosin, propanolol, hydroxyzine Hypertension, chronic. Slightly labile and elevated. -Continue lisinopril -Hold loop diuretic as patient has likely achieved maximum benefit at this point. Coronary artery disease, present on admission. Stable. -Continue aspirin and atorvastatin Chronic pain, present on admission. Stable. -Continue methadone and gabapentin History of polysubstance abuse. Stable. -Previously used heroin, marijuana, cocaine, and methamphetamines currently has not used in over 2 years -Since admission to the hospital she has been on high doses of opioids for pain. She has been weaning herself off of these doses over the last week, -Dilaudid was discontinued today and Ativan dosing was changed to twice a day Nicotine dependence, present on admission. Stable. -Currently using tobacco. She has been educated numerous times -Nicotine patch as needed Disposition: Patient is much improved, but continues to desaturate with dyspnea with any degree of exertion. Will continue to titrate down O2 and steroids. Patient approaching stability, and could likely DC in 2-3 days. Pain Evaluation: Adequate Pain Control GI Prophylaxis: Not indicated VTE Prophylaxis: Other (Xarelto) Resuscitation Status: CPR: Attempt Resuscitation Attending Statement The patient was seen and examined together with Dr. Dominguez on 04/10/17 and I have added additional information to the note above. Edin Dominguez DO Apr 10, 2017 17:37 Mercedes Valle DO Apr 10, 2017 18:50
--- NOTE | 2017-04-10 18:49 | NUR ---
Respiratory/BM/Anxiety No reports of CP/pressure/discomfort. Tele SR/tach 90s-130s with activity. Trace edema bilateral LE No reports of SOB at rest, reports SOB with exertion. SPO2 on 3L NC 88-93%, drops to 86 with talking, placed on 4-5L PRN for ambulation to BR. Reports rare dry cough. No reports of n/v or abdominal pain. Lactulose refused by patient this AM(ok'd by MD) 3 episodes of diarrhea this shift. Tolerating PO intake well. Voiding dark yellow urine without complication. Alert and oriented x3, HAILE, reports full sensation. Anxious at times r/t diagnosis and frequent hospital visits, states "I'm just feeling really down, I just want to get my hip replaced".
[2017-04-10] MEDS: LORazepam 1 mg Tablet PO PRN (20:28)
[2017-04-10] MEDS: Insulin GLARgine 100 Unit/mL Syringe SUBQ SCH (20:32)
--- NOTE | 2017-04-10 23:52 | NUR ---
BLOOD SUGARS/O2 DEMANDS Pt's BS 240 @ HS, 2 units reg. insulin and 30 units Lantus given. Pt still worrisome about her inability to walk to the bathroom without increased shortness of breathe and increasing O2 to 6L NC. Pt otherwise stable, VSS, hip pain tolerable @ this time.
[2017-04-11] VITALS (10 sets, daily range): BP systolic 94–136; BP diastolic 50–82; PULSE 92–108; RESP 16–20; O2SAT 89–99
[2017-04-11 02:41] LABS: BASOPHILS % (AUTO) 0.1 % (0-3); EOSINOPHILS % (AUTO) 0.7 % (0-5); Mean Corpuscular Hemoglobin 27.8 pg (27.0-35.0); Mean Corpuscular Volume 86.2 fL (81-100); NEUTROPHILS % (AUTO) 72.3 % (40-74); Platelet Count 478 bil/L (150-400)
[2017-04-11 02:56] LABS: INR 1.03 ratio
[2017-04-11 03:17] LABS: Phosphorus 2.9 mg/dL (2.5-4.9)
[2017-04-11] MEDS: oxyCODONE-Acetamin 5-325 mg Tablet PO PRN ×4 (05:04→21:14)
[2017-04-11] MEDS: Insulin LISPRO 300 Unit/3 mL Inj SUBQ SCH ×4 (08:00→19:47)
[2017-04-11] MEDS: predniSONE 20 mg Tablet PO SCH (09:12)
[2017-04-11] MEDS: LORazepam 0.5 mg Tablet PO PRN ×2 (09:14→18:47)
--- NOTE | 2017-04-11 13:44 | PCM.PNMED ---
Subjective Date of Service Apr 11, 2017 Subjective Subjective: Patient states she still remains fatigued and is experiencing shortness of breath. Sats remain appropriate. She states that when she gets up to go to the bathroom respirations increase in oxygen demand also increases. Events Overnight: No acute events overnight. ROS: Shortness of breath. Denies fever/chills, nausea/vomiting, headache, weakness, abdominal pain, chest pain, increased swelling in hands or feet. Exam Vital Signs Vital Sign - Last Date Time Temp Pulse Resp B/P Pulse Ox O2 Delivery O2 Flow Rate FiO2 04/11/17 12:35 35.8 105 18 133/67 93 Nasal Cannula 4.00 04/06/17 08:25 40 Intake and Output 04/10/17 04/10/17 04/11/17 Cumulative From/Thru 15:00 23:00 07:00 03/25/17 15:55 - 04/11/17 06:37 Intake Total 620 ml 657 ml 50175 ml Output Total 550 ml 500 ml 99370 ml Balance 70 ml 157 ml -2762 ml Intake Oral 620 ml 657 ml 64675 ml IV Total 9972 ml Output Urine Total 550 ml 500 ml 48897 ml # Voids 2 11 # Bowel Movements 0 5 Exam General: No acute distress, well-developed, well-nourished HEENT: Normocephalic, atraumatic. External ears without defect. Pupils equal, round, and reactive to light and accommodation. Anicteric sclerae, moist conjunctivae. Cardiovascular: Regular rate and rhythm with moderate systolic murmur appreciated, no rubs or gallops appreciated Pulmonary: Coarse breath sounds throughout with bilateral crackles; and inspiratory/expiratory wheezing increased respiratory effort. Currently on nasal cannula. Abdomen: Bowel tones present. Soft, obese. nontender, nondistended. Extremities: No cyanosis, edema, or erythema Skin: Normal temperature, turgor, and texture; no rash, ulcers, or subcutaneous nodules appreciated. Neurological: Cranial nerves grossly intact. Reflexes, coordination, and sensory function within normal limits. Normal muscle strength, tone, and bulk. Psychiatric: Depressed mood and affect. Alert and oriented to person, place, and time IVs and Medications Medications Reviewed: Medications were reviewed in detail Medications High-risk medications include: Xarelto Ativan Percocet Methadone Lab and Diagnostics Result Diagram: 04/11/1721404/11/17214 Microbiology Streptococcus pneumoniae urine antigen negative X-Rays, CTs and MRIs Chest x-ray X-RAY CHEST ONE VIEW, PORTABLE IMPRESSION: Generalized pulmonary edema pattern, statistically most likely cardiogenic in origin. Moderate cardiomegaly. Dictated by: Lennox Melgoza M.D. on 04/02/2017 at 8:00 Renal ultrasound IMPRESSION: A post-renal cause is not identified for acute renal insufficiency. Dictated by: Mark Hyde M.D. on 03/25/2017 at 21:03 US Veinous Leg Duplex Unilateral IMPRESSION: Bifid popliteal vein present with occlusive venous thrombus within one of the vessels. Additional Diagnostics US RENAL SONOGRAM IMPRESSION: A post-renal cause is not identified for acute renal insufficiency. Dictated by: Mark Hyde M.D. on 03/25/2017 at 21:03 Approved by: Mark Hyde M.D. on 03/25/2017 at 21:05 . 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 Patient continues to require High flow nasal cannula, with decreasing oxygen needs. Acute on chronic respiratory failure secondary to DIP, present on admission. Improved. -Patient has severe chronic pulmonary congestion, Last Echo was 02/15/17 showing EF 60-65% with normal E to A ratio; therefore, patient does not have CHF -Patient weaned off high flow on 04/06 and is currently tolerating 2 L nasal cannula -Continue on 2 L nasal cannula as this is her baseline. Increase patient's activity as tolerated. - Pulmonology following Occlusive right DVT, present on admission. Improved. -Likely secondary to decreased mobility secondary to right hip pain -Continue therapy with Xarelto, start 20 mg therapy starting 04/12 Acute kidney failure, present on admission. Resolved. -Unclear etiology may be secondary to metformin (continuing to hold metformin) - Nephrology signed off (03/29/17) -Continue to monitor closely Pulmonary issues, including DIP, COPD, pulmonary edema, pneumonia, present on admission. Improved. -Continue prednisone 60 mg daily - Patient weaned from high flow onto nasal cannula. Currently tolerating 2 L - Continue oxygen, stop weaning as this is baseline for patient - Incentive spirometry/Acapella, mobilization (PT following) - Pulmonology following Hyperkalemia, not present on admission. Improved. -Continue to monitor closely Non-insulin dependent diabetes type II, present on admission. Ongoing -Continue to hold metformin -Continue insulin for blood sugar control while the patient remains on prednisone -Lantus currently to 30 units -Continue Insulin sliding scale -Continue to monitor closely Leukocytosis, not present on admission. Stable -Secondary to glucocorticoid use -continue to monitor Depression/PTSD, present on admission. Ongoing. -Continue fluoxetine, lorazepam, prazosin, propanolol, hydroxyzine Hypertension, chronic. Slightly labile and elevated. -Continue lisinopril -Hold loop diuretic as patient has likely achieved maximum benefit at this point. Coronary artery disease, present on admission. Stable. -Continue aspirin and atorvastatin Chronic pain, present on admission. Stable. -Continue methadone and gabapentin History of polysubstance abuse. Stable. -Previously used heroin, marijuana, cocaine, and methamphetamines currently has not used in over 2 years -Weaned off of Dilaudid on 04/09 -Weaned to Percocet 5-10 mg every 6 hours Nicotine dependence, present on admission. Stable. -Currently using tobacco. She has been educated numerous times -Nicotine patch as needed Disposition: Discharged to home when patient is able to ambulate appropriately without increases in O2 requirement. GI Prophylaxis: Not indicated VTE Prophylaxis: Other (Xarelto) Resuscitation Status: CPR: Attempt Resuscitation Attending Statement The patient was seen and examined together with Dr. Levi on 04/11/17 and I have added additional information to the note above. David Levi DO Apr 11, 2017 13:44 Mercedes Valle DO Apr 11, 2017 18:30
--- NOTE | 2017-04-11 19:19 | NUR ---
Respiratory No reports of SOB at rest, reports significant SOB with exertion. SPo2 on 3L NC 88-93%, drops to 86 with talking. Patient wanted to try walking to bathroom without increasing oxygen (3L) NC when walking to BR, upon returning SPO2 at 80%. Had to increase patient to 5L to recover to 88% although she recovered fairly quickly. Reports rare dry cough.
[2017-04-11] MEDS: Insulin GLARgine 100 Unit/mL Syringe SUBQ SCH (19:47)
[2017-04-11] MEDS: LORazepam 1 mg Tablet PO PRN (20:12)
[2017-04-12] VITALS (10 sets, daily range): BP systolic 88–154; BP diastolic 56–81; PULSE 84–113; RESP 20–22; O2SAT 87–95
[2017-04-12] MEDS: oxyCODONE-Acetamin 5-325 mg Tablet PO PRN ×4 (06:48→23:13)
[2017-04-12] MEDS: predniSONE 20 mg Tablet PO SCH (07:46)
[2017-04-12] MEDS: Insulin LISPRO 300 Unit/3 mL Inj SUBQ SCH ×4 (07:51→20:38)
[2017-04-12] MEDS: LORazepam 0.5 mg Tablet PO PRN (08:00)
--- NOTE | 2017-04-12 14:04 | NUR ---
NUTRITION FOLLOW UP: ASSESS: 56 yo F admitted for DVT and acute on chronic respiratory failure secondary to CHF, Pulmonary edema. She is on a Diabetic diet with good PO at 75-100% of meals. Wt has been fairly stable throughout stay. PMHX: Desquamative interstitial pneumonia, COPD, chronic resp failure, T2DM, Pul HTN, PTSD, Hep C LABS: Reviewed. K+ 5.3, BUN 40, Glu 108 MEDS: Reviewed. Prednisone, Insulin, Senna. GI: 2 BM 04/10. SKIN: Vipul 20 CURRENT WT: 84.5 kg, BMI 31.0 kg/m2, admit wt 81.8 kg, IBW: 54.5 kg DIET: Diabetic, PO 75-100% ESTIMATED NEEDS: Calories: 9113-4356 kcal/day (22-25kcal/kg BW) Protein: 65-85 g/day (1.2-1.5g/kg IBW) NUTRITION DIAGNOSIS: 1.) No nutrition diagnosis at this time. NUTRITION INTERVENTION: 1.) Continue current diet as ordered. 2.) Attempted diabetes education, pt stated it wasn't a good time to talk. Will follow-up if still admitted. MONITOR/EVALUATE: PO intake, wt, BM, GI, labs, POC, nutrition status. Follow per low nutrition risk guidelines.
[2017-04-12] MEDS ORDERED: LORazepam 0.5 mg Tablet PO PRN (14:30)
--- NOTE | 2017-04-12 14:36 | PCM.PNMED ---
Subjective Date of Service Apr 12, 2017 Subjective Subjective: Events Overnight: No acute events overnight. ROS: Denies fever/chills, nausea/vomiting, headache, weakness, abdominal pain, chest pain, shortness of breath, increased swelling in hands or feet. Due to the patient being comatose, a review of systems was unable to be obtained. Exam Vital Signs Vital Sign - Last Date Time Temp Pulse Resp B/P Pulse Ox O2 Delivery O2 Flow Rate FiO2 04/12/17 12:25 37.1 113 20 88/57 87 Nasal Cannula 3.00 04/06/17 08:25 40 Intake and Output 04/11/17 04/11/17 04/12/17 Cumulative From/Thru 15:00 23:00 07:00 03/25/17 15:55 - 04/12/17 06:10 Intake Total 1030 ml 736 ml 39006 ml Output Total 500 ml 76961 ml Balance 1030 ml 236 ml -1496 ml Intake Oral 1030 ml 736 ml 18770 ml IV Total 9972 ml Output Urine Total 500 ml 16823 ml # Voids 5 2 18 # Bowel Movements 5 Exam General: No acute distress, well-developed, well-nourished HEENT: Normocephalic, atraumatic. External ears without defect. Pupils equal, round, and reactive to light and accommodation. Anicteric sclerae, moist conjunctivae. Cardiovascular: Regular rate and rhythm with moderate systolic murmur appreciated, no rubs or gallops appreciated Pulmonary: Coarse breath sounds throughout with bilateral crackles; and inspiratory/expiratory wheezing increased respiratory effort. Currently on nasal cannula. Abdomen: Bowel tones present. Soft, obese. nontender, nondistended. Extremities: No cyanosis, edema, or erythema Skin: Normal temperature, turgor, and texture; no rash, ulcers, or subcutaneous nodules appreciated. Neurological: Cranial nerves grossly intact. Reflexes, coordination, and sensory function within normal limits. Normal muscle strength, tone, and bulk. Psychiatric: Normal mood and affect. Alert and oriented to person, place, and time IVs and Medications Medications Reviewed: Medications were reviewed in detail Medications High-risk medications include: Ativan Percocet Xarelto Methadone Lab and Diagnostics Result Diagram: 04/11/17 0215 04/12/17 0205 Microbiology Streptococcus pneumoniae urine antigen negative X-Rays, CTs and MRIs Chest x-ray X-RAY CHEST ONE VIEW, PORTABLE IMPRESSION: Generalized pulmonary edema pattern, statistically most likely cardiogenic in origin. Moderate cardiomegaly. Dictated by: Lennox Melgoza M.D. on 04/02/2017 at 8:00 Renal ultrasound IMPRESSION: A post-renal cause is not identified for acute renal insufficiency. Dictated by: Mark Hyde M.D. on 03/25/2017 at 21:03 US Veinous Leg Duplex Unilateral IMPRESSION: Bifid popliteal vein present with occlusive venous thrombus within one of the vessels. Additional Diagnostics US RENAL SONOGRAM IMPRESSION: A post-renal cause is not identified for acute renal insufficiency. Dictated by: Mark Hyde M.D. on 03/25/2017 at 21:03 Approved by: Mark Hyde M.D. on 03/25/2017 at 21:05 . 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 Patient continues to require High flow nasal cannula, with decreasing oxygen needs. Acute on chronic respiratory failure secondary to DIP, present on admission. Ongoing. -Patient has severe chronic pulmonary congestion, Last Echo was 02/15/17 showing EF 60-65% with normal E to A ratio; therefore, patient does not have CHF -Patient weaned off high flow on 04/06 and is currently tolerating 2-4 L depending on activity level -Continue to titrate down O2 needs -Pulmonology signed off on 04/06 Occlusive right DVT, present on admission. Ongoing. -Likely secondary to decreased mobility secondary to right hip pain -Pt is not a candidate for warfarin due to her extremely decreased mobility secondary to pre-surgical right hip as well as increased oxygen requirements from her DIP. Due to these limitations the pt would not be able to attend weekly appointments to track INR levels. -Pt has already completed the 15mg BID required for Xarelto onboarding. -Begin therapy with Xarelto 20 mg daily starting 04/13 Acute kidney failure, present on admission. Resolved. - Unclear etiology may be secondary to metformin (continuing to hold metformin) - Nephrology signed off (03/29/17) - Continue to monitor closely Pulmonary issues, including DIP, COPD, pulmonary edema, pneumonia, present on admission. Ongoing. - Starting 04/08 PO prednisone 60 mg daily - Patient weaned from high flow onto nasal cannula. Currently tolerating 2-4 L depending on activity level - Continue oxygen supplementation, wean as tolerated, under the direction of Pulmonology - Incentive spirometry/Acapella, mobilization - Pulmonology signed off on 04/06 - On 04/12 After going 75 feet on 6 L the patient decided down to the 70s. Hyperkalemia, not present on admission. Active. -New-onset, borderline elevation -Continue to monitor closely Non-insulin dependent diabetes type II, present on admission. Ongoing -Continue to hold metformin -Continue insulin for blood sugar control while the patient remains on prednisone -Lantus currently to 30 units, glucose levels appear to be dropping into the 80s in the morning prior to breakfast, the rest of her random glucose draws remain high. -Continue Insulin sliding scale -Continue to monitor closely -Patient will need diabetes education prior to discharge. Leukocytosis, not present on admission. Active. -Secondary to pneumonia and/or glucocorticoid use -Stable, continue to monitor Depression/PTSD, present on admission. Ongoing. -Continue fluoxetine, lorazepam, prazosin, propanolol, hydroxyzine Hypertension, chronic. Slightly labile and elevated. -Continue lisinopril -Hold loop diuretic as patient has likely achieved maximum benefit at this point. Coronary artery disease, present on admission. Stable. -Continue aspirin and atorvastatin Chronic pain, present on admission. Stable. -Continue methadone and gabapentin History of polysubstance abuse. Stable. -Previously used heroin, marijuana, cocaine, and methamphetamines currently has not used in over 2 years -Since admission to the hospital she has been on high doses of opioids for pain. She has been weaning herself off of these doses over the last week, -Dilaudid was discontinued today and Ativan dosing was changed to twice a day Nicotine dependence, present on admission. Stable. -Currently using tobacco. She has been educated numerous times -Nicotine patch as needed Disposition: Discharged to home when patient is able to tolerate 2-3 L O2 nasal cannula with ambulation. GI Prophylaxis: Not indicated VTE Prophylaxis: Other (Xarelto) Resuscitation Status: CPR: Attempt Resuscitation Attending Statement The patient was seen and examined together with Dr. Levi on 04/12/17 and I agree with the history, exam and plan as outlined in the note above. David Levi DO Apr 12, 2017 14:36 Walt Galeano Apr 12, 2017 16:11
--- NOTE | 2017-04-12 15:25 | NUR ---
Social Work: Readiness for Discharge/Multidisciplinary Rounds D: Pt discussed in multidisciplinary rounds. Pt is not yet medically stable for discharge but is anticipated to be nearing discharge. Capacity for self-care addressed. No concerns at this time identified. INTERNET MARKETER met with the patient at bedside to assess for unmet needs and confirm discharge plan. The patient had previous caregivers however fired them and does not yet have replacement caregivers. The pt has been using a w/c for mobility due to her hip pain. She typically relies on her caregivers for chores, groceries/meal prep and transportation. The patient states that her family members have been helping her with these things until her replacement caregiver can be found. The pt confirms that she continues to go to [facility] 3 days a week for methadone and is slowing weaning. The pt has transportation through [facility]. She identifies no sw discharge needs at this time and states her dad will be transporting her home. INTERNET MARKETER reviewed possible discharge options including home health, if we could locate a company who would contract with her insurance. The pt declined this service and states that "it's not worth it. I don't need it." A: Pt who lives, alone with support from family and friends. P: Anticipate pt to discharge home via POV once medically stable; INTERNET MARKETER to continue to follow to assess for discharge needs. OSKAR Foy
[2017-04-12] MEDS: LORazepam 1 mg Tablet PO PRN (16:51)
--- NOTE | 2017-04-12 17:21 | NUR ---
ambulation/oxygenation/mood pt ambulated with FWW 75 feet, pt verb she felt good and didn't feel overly short of breath. Pt appeared short of breath and initial spo2 on 3L NC dropped quickly to 65%. Oxygen increased to 6L NC for walk and pt maintained a sat of 78-88 while walking. Pt verb "this is about how I am at home". Pt was in good spirits in the am but in the afternoon she got very upset after a phone argument with her mother. Her anxiety increased despite her prn ativan. Dr vegas paged at her request for more ativan. Verbal order received.
[2017-04-12] MEDS: Insulin GLARgine 100 Unit/mL Syringe SUBQ SCH (20:37)
[2017-04-13 02:59] VITALS: BP 110/67; PULSE 73; RESP 20; O2SAT 92
--- NOTE | 2017-04-13 06:10 | NUR ---
Blood Glucose: Blood sugars in the 200s at HS. SS and lantus given as ordered- pt requesting multiple snack at HS. Reviewed with pt importance of diabetic diet, pt verbalized understanding but states she does not want to comply at this time.
[2017-04-13 07:34] VITALS: BP 106/65; PULSE 74; RESP 20; O2SAT 93
[2017-04-13] MEDS: Insulin LISPRO 300 Unit/3 mL Inj SUBQ SCH ×3 (07:39→17:08)
[2017-04-13 08:15] VITALS: PULSE 75; RESP 20; O2SAT 92
[2017-04-13] MEDS: predniSONE 20 mg Tablet PO SCH (08:44)
[2017-04-13] MEDS: oxyCODONE-Acetamin 5-325 mg Tablet PO PRN ×3 (08:47→20:07)
[2017-04-13 10:08] VITALS: PULSE 73
[2017-04-13 13:52] VITALS: BP 104/57; PULSE 94; RESP 20; O2SAT 88
--- NOTE | 2017-04-13 14:46 | PCM.DIMED ---
Discharge Instructions Date of Service Mar 28, 2017 Dates of Hospitalization Mar 25, 2017 at 18:22 Discharge Diagnosis Discharge Diagnosis Acute on chronic respiratory failure secondary to DIP Occlusive right DVT Acute kidney failure, resolved Pulmonary issues, including DIP, COPD, pulmonary edema, possible pneumonia Hyperkalemia Non-insulin dependent diabetes type II Leukocytosis Hypertension, chronic. CAD Chronic pain Medication Instructions Additional med instructions Continue to take medications at home as previously prescribed except for the following changes: Do not continue to take metformin. You will begin taking insulin at home for management of your diabetes. We will start you on a dose of 30 units of Lantus each night and use a sliding scale short acting insulin with meals. You will be sent home with a glucometer and will continue to check your blood glucose Please continue to take Xarelto 20 mg per day You may continue to take Ativan 1 mg at bedtime as needed for sleep 1-2 Percocet 5-325 every 6 hours as needed for pain For your lung disease we would like you to continue taking prednisone in the following pattern: 60 mg per day for 1 week, 50 mg per day for 1 week 40 mg per day for 1 week, 30 mg per day for 1 week, then 10 mg per day for 1 week. We would also like you to take Bactrim DS 3 times per week on Wednesdays and Fridays, for the next 3 weeks Nicotine patches have been prescribed for smoking cessation You were also prescribed a walker for ambulation. Test Results Test Results A variety of tests were completed during her stay here in the hospital, a renal ultrasound was completed which showed no renal abnormalities. An ultrasound of your right leg revealed that the vein behind your R knee is composed of 2 vessels (which is an anatomic variation of normal) however, one of these veins showed an occlusion. An x-ray was also completed which showed an enlarged heart and mild fluid accumulation due to chronic congestive heart failure. A CT scan of your lungs showed diffuse chronic interstitial disease. Diet Discharge Diet: Diabetic Activity Discharge Activity: Limited until seen by PCP Call your provider Call your provider for: Fever or Chills, Shortness of breath, Bleeding, Chest pain, Vomitting, Excessive diarrhea, Weakness (unilateral) Patient Instructions Patient Instructions You came into the hospital because your right leg has been swollen and red for the last 3 days. Ultrasound on this leg revealed that there was a deep vein thrombosis. We discussed with cardiology the possibility of removing this thrombosis, however, considering its location medical management is advised. You were initially treated with IV heparin but then transitioned to Xarelto which you have been taking for the past 2 weeks. Your deep vein thrombosis should resolve on its own without further complications. Please continue to take medication as described previously You also experienced an acute exacerbation of your lung disease while here in the hospital which required high flow oxygen for a number of days, and high- dose steroids which were slowly tapered down over the period of your stay. Please continue to take this medication as prescribed above. Please continue to use oxygen at home as needed for shortness of breath. Please take all medications as directed above. Follow-up plan Please follow-up with your primary care physician as soon as possible, we will attempt to make an appointment for you at her clinic however if you do not hear back from them within the next 24 hours please call and schedule an appointment. He would also like you to follow-up with Dr. Francisco in 3-4 weeks. You may follow-up with your orthopedist to determine your schedule for surgery, which may need to be pushed back due to these unfortunate complications. Follow-up Provider: Martha Lanza Follow-up with PCP in: 1 week Provider: Sophy Francisco MD Follow-up in: 3 weeks David Levi DO Mar 28, 2017 13:54
[2017-04-13 15:45] VITALS: BP 103/65; PULSE 85; RESP 22; O2SAT 89
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
[2017-04-13] MEDS ORDERED: SULF1TAB35 PO (16:32)
[2017-04-13] MEDS ORDERED: PRE10 PO (16:32)
[2017-04-13] MEDS ORDERED: PRE20 PO (16:32)
--- NOTE | 2017-04-13 16:36 | PROG NOTE ---
[address] [address] PROGRESS NOTE PATIENT: JONO RODNEY : 1960 MR#: [id number] ADMIT: 03/25/2017 JOB ID: [id number] DATE: 04/13/2017 PULMONARY PROGRESS NOTE: The patient is a 56-year-old woman, well known to me from multiple prior hospitalizations for recurrent respiratory failure in the setting of desquamative interstitial pneumonitis. INTERVAL HISTORY: She was readmitted two weeks ago for a lower extremity DVT and has been on steroids for her DIP, initially IV and now 60 mg p.o. for a few days. She is going to be discharged today and I was asked to comment on steroid dosing. She is frustrated, upset, in pain from her hip, and short of breath. Denies fevers, chills. REVIEW OF SYSTEMS: As above. PHYSICAL EXAMINATION: Vital signs reviewed. Afebrile. Pulse 74, respirations 20, BP 106/65, sats 93% on 3 L nasal cannula. General: Cushingoid facies. Chest: Bilateral crackles. CT of the chest from April 03 was reviewed and shows diffuse homogeneous ground-glass involving the entire pulmonary parenchyma. This is at least as bad, if not worse, compared to prior CT. ASSESSMENT: 1. Desquamative interstitial pneumonitis with recurrence. 2. Acute on chronic hypoxic respiratory failure. 3. Prior history of polysubstance abuse and noncompliance with smoking cessation. RECOMMENDATIONS: This complex 56-year-old woman was diagnosed with desquamative interstitial pneumonitis based on surgical lung biopsy in 2015, which responded well to smoking cessation and corticosteroid therapy. Since that time, however, she has had difficulty with relapsing on cigarettes and recurrent episodes of relapsing respiratory failure as a result of that. Most recently, she has been back in the hospital with a DVT and is currently on prednisone 60 mg daily for a few days. My recommendations are as follows: 1. I would recommend continuing a slow prednisone taper 60 mg daily for one week, then 50 mg daily for one week, then 40 mg daily for one week, then 30 mg daily for one week, and then 10 mg daily for one week. 2. I will plan on seeing her back in about 3-4 weeks, at which time we can decide on next steps depending on how she is doing. 3. She should be on Pneumocystis prophylaxis with Bactrim double strength one tablet three times a week as long as she is on the steroids. I will manage this when I see her in followup and let her know when she needs to stop it. 4. I counseled her that in view of her recent DVT it is not likely for her to have her hip replacement done anytime soon. She should be prepared that this will take 2-3 months. 5. As always, I counseled her strongly against using any cigarettes or inhaled drugs of any kind because these have lead to life-threatening relapses in the past. 6. I will make sure she has followup to see me in about 3-4 weeks. She is okay for discharge from a pulmonary standpoint.
[2017-04-13] MEDS ORDERED: OXYC1TAB24 PO (17:17)
[2017-04-13] MEDS ORDERED: LORA-303 PO (17:17)
[2017-04-13] MEDS ORDERED: NICO1PAT5 TRANSDERM (17:18)
[2017-04-13] MEDS ORDERED: WALK1EAC55 MC (17:19)
[2017-04-13] MEDS ORDERED: INSU100I13 SUBQ (17:25)
[2017-04-13] MEDS ORDERED: NPH,100I SUBQ (17:25)
[2017-04-13] MEDS ORDERED: [UNRECOGNIZED DRUG - CODE] MC (17:52)
[2017-04-13] MEDS ORDERED: LANC1COM MC (17:53)
--- NOTE | 2017-04-13 17:58 | NUR ---
Anxiety patient very anxious today and wants to go home. stating, "I've been here too long and I have a lot of paperwork I need to finish when I get home". patient c/o right hip pain throughout the day, chronic. percocet and been somewhat effective in controlling. Dr Levi paged regarding the need for a 'Home O2 Evaluation' and new home oxygen orders before discharge. no new orders yet. continue to monitor
[2017-04-13] MEDS ORDERED: RIVA20TA PO (18:21)
[2017-04-13] MEDS ORDERED: LORazepam 1 mg Tablet PO PRN (19:40)
[2017-04-13] MEDS ORDERED: oxyCODONE-Acetamin 10-325 mg Tablet PO PRN (19:40)
[2017-04-13] MEDS: LORazepam 1 mg Tablet PO PRN (20:06)
--- NOTE | 2017-04-13 20:11 | PCM.DC.MED ---
Discharge Summary Date of Service Apr 13, 2017 Dates of Hospitalization Date of Hospital Admission Mar 25, 2017 at 18:22 Date of Discharge: Apr 13, 2017 Providers: Admitting Physician: Mercedes Valle DO Primary Care Physician: Martha Lanza Attending Physician: Walt Galeano Diagnosis at Time of Discharge Diagnosis at Time of Discharge Acute on chronic respiratory failure secondary to DIP Occlusive right DVT Acute kidney failure, resolved Pulmonary issues, including DIP, COPD, pulmonary edema, possible pneumonia Hyperkalemia Non-insulin dependent diabetes type II Leukocytosis Hypertension, chronic. CAD Chronic pain Consultations Cardiology: Dr. Rhodes Nephrology: Dr. Zuniga Procedures XRay, CTs & MRIs X-RAY CHEST ONE VIEW, PORTABLE IMPRESSION: Mild edema pattern within the lung parenchyma, heart size at upper limits of normal, suspect mild acute exacerbation of chronic CHF. Dictated by: Lennox Melgoza M.D. on 03/25/2017 at 16:28 Approved by: Lennox Melgoza M.D. on 03/25/2017 at 16:29 X-RAY CHEST ONE VIEW, PORTABLE IMPRESSION: Increasing pulmonary edema and/or diffuse bilateral pneumonia. Correlate clinically. Dictated by: Wei GORE Interpreted: Sachi Che MD on 03/29/2017 at 10:22 Approved by: Sachi Che MD, PhD on 03/29/2017 at 10:28 X-RAY CHEST ONE VIEW, PORTABLE IMPRESSION: Pulmonary edema and/or diffuse bilateral pneumonia similar to prior examination. Dictated by: Wei GORE Interpreted: Jens Jarrell MD on 03/31/2017 at 9:27 Approved by: Jens Jarrell M.D. on 03/31/2017 at 10:15 X-RAY CHEST ONE VIEW, PORTABLE IMPRESSION: Pulmonary edema and/or diffuse bilateral pneumonia similar to prior examination. Dictated by: Wei GORE Interpreted: Jens Jarrell MD on 03/31/2017 at 9:27 Approved by: Jens Jarrell M.D. on 03/31/2017 at 10:15 CT CHEST WITHOUT CONTRAST IMPRESSION: Diffuse lung disease. The appearance is that of infection. The appearance is atypical however. If the patient is immunocompromised this could be due to pneumocystis or some allergic phenomenon. There is no evidence to suggest congestive failure. Dictated by: Jens Jarrell M.D. on 04/03/2017 at 9:24 Approved by: Jens Jarrell M.D. on 04/03/2017 at 9:30 Other Diagnostics US RENAL SONOGRAM IMPRESSION: A post-renal cause is not identified for acute renal insufficiency. Dictated by: Mark Hyde M.D. on 03/25/2017 at 21:03 Approved by: Mark Hyde M.D. on 03/25/2017 at 21:05 . Brief History 56-year-old female with a history of desquamative interstitial pneumonia, COPD on home O2, pulmonary hypertension, type II diabetes, and severe osteoarthritis of the right hip presents to the emergency department after being assessed for surgery of her right hip. Patient was undergoing a pre-op evaluation for a JEAN-CLAUDE and it was noted that she had a swollen right erythematous lower extremity that she states started 3 days ago and has been increasing in pain and severity. An ultrasound of the RLE was done and it was found that she had an occlusive DVT. The patient describes that 3 days prior she had myalgias, general malaise, and diarrhea. Patient is nonambulatory due to her hip and was not on anticoagulation for long-term immobility. Patient denies any acute change in her breathing although she does have a significant history of DIP with ongoing smoking and past history of methamphetamine use. She was last intubated in October of this year. Patient has a history of CVA in 2015. Presentation to the emergency department, the patient had a venous ultrasound in the office which showed a bifid popliteal vein with occlusive thrombus. The case was discussed with interventional cardiology and it was decided that she was not a candidate for EKOS at that time and better managed with oral therapy. Patient was initially placed on a heparin drip for and then transitioned to Xarelto. Over the course of the patient's stay her redness and leg swelling decreased significantly. On presentation the patient's creatinine was initially 5.21 with no history of chronic kidney disease. She was aggressively hydrated and her creatinine subsequently dropped to normal levels within the next 2 days. Nephrology was consulted and stated that they believe the reasoning for this was her dehydration status in conjunction with metformin use. Patient was maintained on insulin therapy for diabetes during her stay in the hospital and will continue this as an outpatient. During the course of the patient's the DVT appeared to be improving significantly and she was stable on Xarelto, she was set to be discharged following day when she suddenly became short of breath and required high flow oxygen for support. The patient was placed on high-dose steroids and high flow oxygen which was maintained at an FiO2 of 100% on 50 L. The patient required this high dosage for a period of 2-3 days and was subsequently weaned. Pulmonology was consulted at this time and she was covered with antibiotics for possible pneumonia as this could not be ruled out. PE could also not be ruled out at this time however as she was currently taking Xarelto there is no additional therapy that was required. Of note: The patient has recently been seeking surgery for her right hip through orthopedics. She initially stated that if she could not have this surgery her quality of life is not such that she would be willing to continue on. She has recently been approved by Dr. Goode to undergo the surgery, however this was before the DVT and exacerbation of her DIP. I spoke with Dr. Goode on 03/29 about her current condition and he was reluctant to continue surgery as she is in this state. He states that she must be DVT free at time of surgery. And states that he would prefer that she be on no more than 10 mg of prednisone at the time of surgery. He states that even though he is willing to operate under these parameters, it is unlikely that anesthesiology would accept a case such as this. Palliative care was consulted at that time and began to discuss with the patient various options. After a very long discussion , the patient stated that she was not willing to "give up" and was willing to do what was necessary to be able to proceed towards surgery. I reiterated the difficulty of continuing on and the possibility that the surgery may never be completed, and she reassured me that she was willing to face whatever difficulties may arise. She is aware that it may be several months before surgery if it could be done at all, but she was willing to endure whatever it takes in order to make that happen, including stopping smoking. Patient was subsequently weaned off of high flow oxygen and is now requiring 2- 3 L of oxygen which is a slight increase from her baseline. At home she was originally prescribed 2 L however she only used it as needed. Respiratory therapy to see the patient before discharge and make recommendations as to appropriate home O2 use. Hospital Course Sonia Casarez is a 56-year-old lady with severe pulmonary compromise due to Desquamated Interstitial Pneumonia (DIP), COPD, and long-term nicotine dependence admitted for treatment of right lower extremity DVT and currently suffering from acute exacerbation of pulmonary problems and congestive heart failure. Patient continues to require High flow nasal cannula, with decreasing oxygen needs. Acute on chronic respiratory failure secondary to DIP, present on admission. Ongoing. -Patient has severe chronic pulmonary congestion, Last Echo was 02/15/17 showing EF 60-65% with normal E to A ratio; therefore, patient does not have CHF -Patient weaned off high flow on 04/06 and is currently tolerating 2-4 L depending on activity level -Pulmonology signed off on 04/06 Occlusive right DVT, present on admission. Resolving -Likely secondary to decreased mobility secondary to right hip pain -Pt is not a candidate for warfarin due to her extremely decreased mobility secondary to pre-surgical right hip as well as increased oxygen requirements from her DIP. Due to these limitations the pt would not be able to attend weekly appointments to track INR levels. -Pt has already completed the 15mg BID required for Xarelto onboarding. -Continue Xarelto 20 mg daily Acute kidney failure, present on admission. Resolved. - Unclear etiology may be secondary to metformin (continuing to hold metformin) - Nephrology signed off (03/29/17) Pulmonary issues, including DIP, COPD, pulmonary edema, pneumonia, present on admission. Ongoing. - Starting 04/08 PO prednisone 60 mg daily - Patient weaned from high flow onto nasal cannula. Currently tolerating 2-4 L depending on activity level - Continue oxygen supplementation - Incentive spirometry/Acapella, mobilization - Pulmonology signed off on 04/06 - On 04/12 After going 75 feet on 6 L the patient desaturated down to the 70s with minor shortness of breath Hyperkalemia, not present on admission. Stable -New-onset, borderline elevation Non-insulin dependent diabetes type II, present on admission. Stable -Continue to hold metformin -Continue insulin for blood sugar control while the patient remains on prednisone -Lantus currently to 30 units -Continue Insulin sliding scale -Continue to monitor closely -Diabetes education Leukocytosis, not present on admission. Stable -Secondary to pneumonia and/or glucocorticoid use Depression/PTSD, present on admission. Ongoing. -Continue fluoxetine, lorazepam, prazosin, propanolol, hydroxyzine, Ativan Hypertension, chronic. Slightly labile and elevated. -Continue lisinopril Coronary artery disease, present on admission. Stable. -Continue aspirin and atorvastatin Chronic pain, present on admission. Stable. -Continue methadone and gabapentin History of polysubstance abuse. Stable. -Previously used heroin, marijuana, cocaine, and methamphetamines currently has not used in over 2 years -Since admission to the hospital she has been on high doses of opioids for pain. -Dilaudid was discontinued today and Ativan dosing was changed to at bedtime only Nicotine dependence, present on admission. Stable. -Currently using tobacco. She has been educated numerous times -Nicotine patch as needed Exam Vital Signs (Last) Date Time Temp Pulse Resp B/P Pulse Ox O2 Delivery O2 Flow Rate FiO2 04/13/17 15:45 37.0 85 22 103/65 89 Nasal Cannula 3.00 Exam General: No acute distress, well-developed, well-nourished HEENT: Normocephalic, atraumatic. External ears without defect. Pupils equal, round, and reactive to light and accommodation. Anicteric sclerae, moist conjunctivae. Cardiovascular: Regular rate and rhythm with moderate systolic murmur appreciated, no rubs or gallops appreciated Pulmonary: Coarse breath sounds throughout with bilateral crackles; and inspiratory/expiratory wheezing increased respiratory effort. Currently on nasal cannula. Abdomen: Bowel tones present. Soft, obese. nontender, nondistended. Extremities: No cyanosis, edema, or erythema Skin: Normal temperature, turgor, and texture; no rash, ulcers, or subcutaneous nodules appreciated. Neurological: Cranial nerves grossly intact. Reflexes, coordination, and sensory function within normal limits. Normal muscle strength, tone, and bulk. Psychiatric: Normal mood and affect. Alert and oriented to person, place, and time Test 03/25/17 06:51 03/25/17 16:40 03/26/17 00:55 03/26/17 10:00 Globulin (PEP) 2.5g/dL (2.2-3.9) Albumin/Globulin Ratio 0.9 (0.7-1.7) Zffat-8-Dcqiorjyh 0.2g/dL (0.0-0.4) Hiykj-6-Mluubkmpz 0.9g/dL (0.4-1.0) Beta Globulins 0.7g/dL (0.7-1.3) Gamma Globulins 0.6g/dL (0.4-1.8) Serum Monoclonal Protein Not observedg/dL Protein Electrophoresis Comment Comment (.) Protein Electrophoresis Interpret Comment (.) Anti-Nuclear Antibody Screen Negative (.) Anti-Glomerular Basement Memb Ab 3units (0-20) Complement C3 149mg/dL (82-167) Complement C4 27mg/dL (14-44) Hepatitis C Virus Quantitation [id number]/mL (.) Hepatitis C RNA (PCR) log10 6.179 (.) Hepatitis C Comment Comment (.) Hold Haynes Top Tube Received (Received) Urine Random Creatinine 168mg/dL (15-278) Urine Random Total Protein 19mg/dL (0-15) Urine Protein/Creatinine Ratio 0.11 (0-200) Urine Color Straw (YELLOW) Urine Appearance Clear (CLEAR,HAZY) Urine pH 5.5 (5.0-8.0) Urine Specific [place] 1.010 (1.003-1.035) Urine Protein Negativemg/dL (NEG,TRACE) Urine Glucose (UA) Negativemg/dL (NEGATIVE) Urine Ketones Negativemg/dL (NEGATIVE) Urine Occult Blood Negative (NEGATIVE) Urine Nitrite Negative (NEGATIVE) Urine Bilirubin Negative (NEGATIVE) Urine Urobilinogen Normalmg/dL (NORMAL) Urine Leukocyte Esterase Negative (NEGATIVE) Urine RBC 0-2/hpf (0-2) Urine WBC 0-5/hpf (0-5) Urine Epithelial Cells Few/hpf (NONE-MOD) Urine Crystals None seen (NONE SEEN) Urine Bacteria None/hpf (NONE-FEW) Urine Hyaline Casts None/lpf (NONE) Urine Granular Casts None seen (NONE SEEN) Urine Waxy Casts None seen (NONE SEEN) Urine Red Blood Cell Casts None seen (NONE SEEN) Urine White Blood Cell Casts None seen (NONE SEEN) Urine Mucus None seen (None Seen) Urine Trichomonas None seen (NONE SEEN) Urine Yeast None (NONE SEEN) Urinalysis Comment None Urine Culture Reflexed Not indicated Test 03/27/17 03:10 03/28/17 03:20 03/28/17 17:41 03/29/17 06:05 Ionized Calcium 0.79mmol/L (1.17-1.32) Cryoglobulin Comment (None detected) Activated Partial Thromboplast Time 78.8sec (22.8-33.0) Troponin T 0.010ug/L (0.0-0.011) Test 03/31/17 05:45 04/01/17 08:05 04/02/17 02:45 04/03/17 02:27 Metamyelocytes % 0% (0-0) Myelocytes % 2% (0-0) Fungal Antibodies 50pg/mL (<80) Pro-B-Type Natriuretic Peptide 5238pg/mL (0-287) Band Neutrophils % 2% (1-5) Test 04/11/17 02:15 04/13/17 02:55 White Blood Count 24.6th/mm3 (3.8-10.1) Red Blood Count 4.78mil/mm3 (3.90-5.20) Hemoglobin 13.3g/dL (12.0-15.6) Hematocrit 41.2% (35.0-46.0) Mean Corpuscular Volume 86.2fL (81-100) Mean Corpuscular Hemoglobin 27.8pg (27.0-35.0) Mean Corpuscular Hemoglobin Concent 32.3% (32.0-37.0) Red Cell Distribution Width 17.4% (12.3-15.4) Platelet Count 478bil/L (150-400) Neutrophils (%) (Auto) 72.3% (40-74) Lymphocytes (%) (Auto) 17.4% (14-46) Monocytes (%) (Auto) 8.0% (4-12) Eosinophils (%) (Auto) 0.7% (0-5) Basophils (%) (Auto) 0.1% (0-3) Hematology Comments Prothrombin Time 11.0sec (8.1-12.5) Prothromb Time International Ratio 1.03ratio Phosphorus Level 2.9mg/dL (2.5-4.9) Magnesium Level 2.0mg/dL (1.6-2.6) Total Bilirubin 0.2mg/dL (0.0-1.2) Aspartate Amino Transf (AST/SGOT) 20U/L (0-50) Alanine Aminotransferase (ALT/SGPT) 41U/L (0-32) Alkaline Phosphatase 100U/L (25-150) Total Protein 6.2g/dL (6.4-8.4) Albumin 3.4g/dL (3.4-5.0) Procalcitonin 0.05ng/mL (0.00-0.08) Sodium Level 139mEq/L (134-144) Potassium Level 4.4mEq/L (3.5-5.2) Chloride Level 99mEq/L (97-108) Carbon Dioxide Level 28mmol/L (18-29) Blood Urea Nitrogen 40mg/dL (6-24) Creatinine 0.67mg/dL (0.57-1.00) Estimat Glomerular Filtration Rate 130mL/min (>59) Glucose Level 185mg/dL (60-99) Calcium Level 8.8mg/dL (8.5-10.1) Microbiology Results Streptococcus pneumoniae urine antigen negative Discharge Medications Discharge Medications Aspirin Chew (Aspirin Chew) 81 Mg Tablet 81 MG PO DAILY Prescribed by: DANIEL PINA DO Atorvastatin Calcium (Atorvastatin Calcium) 20 Mg Tablet 20 MG PO HS Prescribed by: DANIEL PINA DO Fluoxetine (Fluoxetine) 20 Mg Capsule 40 MG PO QAM (Reported) Furosemide (Furosemide) 40 Mg Tablet 40 MG PO QAM (Reported) Gabapentin (Gabapentin) 300 Mg Capsule 600 MG PO BID (Reported) Gabapentin (Gabapentin) 300 Mg Capsule 300 MG PO MIDDAY (Reported) Insulin Glargine (Lantus U100 Solostar Insulin Pen) 100 Unit/1 Ml Insuln.pen 10 PENINJ SUBQ HS Prescribed by: DARREL JEFFERS DO Lisinopril (Lisinopril) 30 Mg Tablet 30 MG PO DAILY Prescribed by: ZI MARION DO Methadone (Methadone) 10 Mg Tab 70 MG PO DAILY (Reported) Mirtazapine (Mirtazapine) 15 Mg Tablet 15 MG PO HS Prescribed by: FOUZIA SKAGGS MD NPH, Human Insulin Isophane (HUMulin-N U100 Insulin Kwikpen) 100 Unit/1 Ml Insuln.pen 8 PENINJ SUBQ TIDWM Prescribed by: DARREL JEFFERS DO Nicotine 14 mg/24 hr Patch (Nicotine 14 mg/24 hr Patch) 1 Each Patch.td24 1 PATCH TRANSDERM DAILY Prescribed by: DARREL JEFFERS DO Omeprazole (Omeprazole) 20 Mg Capsule.dr 20 MG PO QAM (Reported) Uxf622/Iron Fumarate/FA/Dss ( 19 Tablet) 1 Each Tablet 1 EACH PO QAM ( Reported) Potassium Chloride ER (Potassium Chloride ER) 10 Meq Tablet 10 MEQ PO DAILYWM ( Reported) TAKE WITH FOOD Prednisone (PredniSONE) 10 Mg Tablet 10 MG PO DAILY Prescribed by: DEONTE RIDLEY DO Prednisone (PredniSONE) 20 Mg Tablet 20 MG PO DAILY Prescribed by: DEONTE RIDLEY DO Rivaroxaban (Xarelto) 20 Mg Tablet 20 MG PO DAILY Prescribed by: DARREL JEFFERS DO Sulfamethoxazole/Trimeth 800-160 mg (Bactrim DS 800-160 mg) 1 Each Tablet 1 TABLET PO 3 times per week MWF Prescribed by: DEONTE RIDLEY DO As needed Albuterol Neb Soln (Albuterol Neb Soln) 1.25 Mg/3 Ml Vial.neb 1.25 MG NEB Q2H PRN PRN For Shortness of Breath Prescribed by: FOUZIA SKAGGS MD Albuterol Sulfate (Ventolin HFA Inhaler) 200 Puff/18 Gm Inhaler 1 PUFF INH Q4 PRN PRN For Wheezing Prescribed by: SWATHI BALDERAS DO Fluticasone Propionate (Fluticasone Propionate Nasal) 16 Gm [place].susp 2 SPRAYS NASAL DAILY PRN PRN For Congestion (Reported) Hydroxyzine Pamoate (HydrOXYzine Pamoate) 50 Mg Capsule 50 MG PO QID PRN PRN For Anxiety (Reported) Ipratropium/Albuterol Sulfate (Iprat-Albut 0.5-3(2.5) mg/3 mL Inhalant Soln) 3 Ml Ampul.neb 3 ML NEB Q4H PRN PRN For Wheezing Prescribed by: FOUZIA SKAGGS MD Lorazepam (Lorazepam) 0.5 Mg Tablet 0.5 MG PO BID PRN PRN For Anxiety (Reported ) Lorazepam (Ativan) 1 Mg Tablet 1 MG PO HS PRN PRN For Anxiety Prescribed by: DARREL JEFFERS DO Polyethylene Glycol 3350 (Polyethylene Glycol 3350) 17 Gm Powd.pack 17 GM PO DAILY PRN PRN For Constipation (Reported) Prazosin (Prazosin) 2 Mg Capsule 4 MG PO HS PRN PRN nightmares "NIGHTMARES" Prescribed by: FOUZIA SKAGGS MD Propranolol HCl (Propranolol HCl) 10 Mg Tablet 10 MG PO TID PRN PRN For Anxiety (Reported) oxyCODONE-Acetaminophen 5-325 mg (oxyCODONE-Acetaminophen 5-325 mg) 1 Each Tablet 1-2 TAB PO Q6 PRN PRN For Pain Prescribed by: DARREL JEFFERS DO Durable Medical Equipment Blood-Glucose Meter (Cool Blood Glucose Meter) 1 Each Each 1 EACH [facility] (DME) Prescribed by: DARREL JEFFERS DO Lancets/Blood Glucose Strips (Fora [id number] Lanct-Str) 30 Gauge Combo..pkg 1 EACH [facility] (DME) Prescribed by: DARREL JEFFERS DO Walker (Ultra-Light Rollator) 1 Each Each 1 EACH [facility] (DME) Prescribed by: DARREL JEFFERS DO Additional med instructions Continue to take medications at home as previously prescribed except for the following changes: Do not continue to take metformin. You will begin taking insulin at home for management of your diabetes. We will start you on a dose of 30 units of Lantus each night and use a sliding scale short acting insulin with meals. You will be sent home with a glucometer and will continue to check your blood glucose Please continue to take Xarelto 20 mg per day You may continue to take Ativan 1 mg at bedtime as needed for sleep 1-2 Percocet 5-325 every 6 hours as needed for pain For your lung disease we would like you to continue taking prednisone in the following pattern: 60 mg per day for 1 week, 50 mg per day for 1 week 40 mg per day for 1 week, 30 mg per day for 1 week, then 10 mg per day for 1 week. We would also like you to take Bactrim DS 3 times per week on Wednesdays and Fridays, for the next 3 weeks Nicotine patches have been prescribed for smoking cessation You were also prescribed a walker for ambulation. Followup Plan Disposition: Home Follow-up plan Please follow-up with your primary care physician as soon as possible, we will attempt to make an appointment for you at her clinic however if you do not hear back from them within the next 24 hours please call and schedule an appointment. He would also like you to follow-up with Dr. Francisco in 3-4 weeks. You may follow-up with your orthopedist to determine your schedule for surgery, which may need to be pushed back due to these unfortunate complications. Discharge Diet: Diabetic Discharge Activity: Limited until seen by PCP Patient Instructions You came into the hospital because your right leg has been swollen and red for the last 3 days. Ultrasound on this leg revealed that there was a deep vein thrombosis. We discussed with cardiology the possibility of removing this thrombosis, however, considering its location medical management is advised. You were initially treated with IV heparin but then transitioned to Xarelto which you have been taking for the past 2 weeks. Your deep vein thrombosis should resolve on its own without further complications. Please continue to take medication as described previously You also experienced an acute exacerbation of your lung disease while here in the hospital which required high flow oxygen for a number of days, and high- dose steroids which were slowly tapered down over the period of your stay. Please continue to take this medication as prescribed above. Please continue to use oxygen at home as needed for shortness of breath. Please take all medications as directed above. Follow-up Provider: Martha Lanza Follow-up with PCP in: 1 week Provider: Sophy Francisco MD Follow-up in: 3 weeks Time spent Greater than 35 minutes spent on documentation and coordination of discharge. copies to: Sophy Francisco MD; Martha Lazna Adam J DO Apr 13, 2017 20:11
--- NOTE | 2017-04-13 20:42 | NUR ---
Home o2 eval. Patient was observed at rest in bed with no o2. Sats were 82%. Placed patient on 3L o2 NC and sats came to 88% Paperwork filled out and signed by to fax to [facility] for new orders for home o2. Bruce Vasques RT
--- NOTE | 2017-04-13 21:16 | NUR ---
At 2115 pt was taken down to main entrance in her WC to personal car, driven by her brother, en route to home. Discharge paperwork/RX/instructions reviewed with pt, who communicated understanding. Paperwork requiring staff and pt signature did not print with DC packet, and this mortgage loan underwriter and discharge coordinator for [facility] were unable to locate paperwork. Pt signed handwritten paper stating she had reviewed paperwork and understood all DC instructions.
== END 2017-04-13 21:10 | disposition home or self-care (01) | DRG 299 ==
LOC: SED 15:30 → PCC 18:22
PROVIDERS: ADMIT Neuromusculoskeletal Medicine & OMM; ATTEND Neuromusculoskeletal Medicine & OMM
PROC: 4A033R1 Measurement of Arterial Saturation, Peripheral, Percutaneous Approach (ICD-10-PCS; principal; 2017-03-29)
DX: I82.431 Acute embolism and thrombosis of right popliteal vein (principal); J96.21 Acute and chronic respiratory failure with hypoxia; I26.99 Other pulmonary embolism without acute cor pulmonale; N17.9 Acute kidney failure, unspecified; J18.9 Pneumonia, unspecified organism; J81.1 Chronic pulmonary edema; E87.2 Acidosis; F11.20 Opioid dependence, uncomplicated; E24.2 Drug-induced Cushing's syndrome; Z99.81 Dependence on supplemental oxygen; I13.10 Hypertensive heart and chronic kidney disease without heart failure, with stage 1 through stage 4 chronic kidney disease, or unspecified chronic kidney disease; J98.9 Respiratory disorder, unspecified; J44.9 Chronic obstructive pulmonary disease, unspecified; M16.11 Unilateral primary osteoarthritis, right hip; N14.1 Nephropathy induced by other drugs, medicaments and biological substances; T38.3X5A Adverse effect of insulin and oral hypoglycemic [antidiabetic] drugs, initial encounter; F43.10 Post-traumatic stress disorder, unspecified; G89.29 Other chronic pain; H10.9 Unspecified conjunctivitis; E86.0 Dehydration; N28.9 Disorder of kidney and ureter, unspecified; F17.210 Nicotine dependence, cigarettes, uncomplicated; E66.01 Morbid (severe) obesity due to excess calories; Z68.32 Body mass index [BMI] 32.0-32.9, adult; K59.03 Drug induced constipation; T40.2X5A Adverse effect of other opioids, initial encounter; E87.5 Hyperkalemia; E11.9 Type 2 diabetes mellitus without complications; Z79.84 Long term (current) use of oral hypoglycemic drugs; F32.9 Major depressive disorder, single episode, unspecified; Z99.3 Dependence on wheelchair; E83.42 Hypomagnesemia; B18.2 Chronic viral hepatitis C

== ENCOUNTER 2017-04-15 09:51 | Inpatient (IN) | payer OTHER, MEDICAID ==
[~2017-04-15] VITALS: Ht 162.6 cm; Wt 88.6 kg
[2017-04-15] VITALS (9 sets, daily range): BP systolic 93–127; BP diastolic 32–72; PULSE 17–102; RESP 16–20; O2SAT 93–100
[~2017-04-15 09:51] MED LIST changes: -ACET325T51 PO; -DICL100G26 TOPICAL; -DIPH25CA6 PO; +INSU100I13 SUBQ; +LANC1COM MC; +LORA-303 PO; -METF500T PO; -NICO1PAT16 TRANSDERM; +NICO1PAT5 TRANSDERM; +NPH,100I SUBQ; -NYST15PO5 TP; +OXYC1TAB24 PO; +PRE20 PO; +RIVA20TA PO; +SULF1TAB35 PO; -TRAM50TA2 PO; -UMEC62.5 IH; +WALK1EAC55 MC; +[UNRECOGNIZED DRUG - CODE] MC
[2017-04-15] MEDS ORDERED: Alum-Mag Hydrox-Simeth 30 mL Suspension PO PRN ×2 (10:20→15:40)
[2017-04-15] MEDS ORDERED: Ondansetron 2 mg/mL 2 mL Inj IVPUSH PRN (10:20)
--- NOTE | 2017-04-15 10:29 | ABG ---
DateTimeAnalyzed 10:20:00 -_ pH ____7.260 - 7.350 7.450 pCO2 ___61.8__ -mmHg 35.0 45.0 pO2 165 -mmHg 69.0 116 HCO3- ___26.8__ -mmol/L 22.0 26.0 ABE ___-0.7__ -mmol/L -2.0 2.0 tHb ___11.2__ -g/dL 12.0 18.0 O2Hb ___93.1__ -% COHb ____4.8__ -% 0.0 1.5 MetHb ____1.0__ -% 0.4 1.5 sO2 ___98.8__ -% FIO2 __100.0__ -% Drawn By MM - Date/Time Notified____ 10:28:00 -_ Spontaneous_RR ___14.0__ -b/min Liter_Flow ___15.0__ -L/min Oxygen Device 1 VENTI MASK - Notified By MM - Notified Whom DR [address] - B 761 -mmHg tO2 ___14.9__ -Vol% [place] test _Positive -
--- NOTE | 2017-04-15 10:32 | ED.REPORT ---
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 Her roommate called medics because she noticed that the pt was lethargic, and could not be awakened. Her O2 was 83% at home, she was noted to be hypotensive and ran out. She has had no recent changes in her methadone dosage. She was just discharged from the hospital 2 days ago for a DVT. HPI limited due to patient condition. Nursing Notes Stated Complaint: DECREASE LOC/HYPOXIA Chief Complaint: Respiratory Distress Nursing Notes Reviewed: Yes Allergies: Coded Allergies: iodine (Verified Allergy, Unknown, 02/20/17) Egg Yolk (Verified Adverse Reaction, Intermediate, Nausea,Vomiting, ) Scheduled Aspirin Chew (Aspirin Chew) 81 Mg Tablet 81 MG PO DAILY Atorvastatin Calcium (Atorvastatin Calcium) 20 Mg Tablet 20 MG PO HS Fluoxetine (Fluoxetine) 20 Mg Capsule 40 MG PO QAM Furosemide (Furosemide) 40 Mg Tablet 40 MG PO QAM Gabapentin (Gabapentin) 300 Mg Capsule 600 MG PO BID Gabapentin (Gabapentin) 300 Mg Capsule 300 MG PO MIDDAY Insulin Glargine (Lantus U100 Solostar Insulin Pen) 100 Unit/1 Ml Insuln.pen 10 PENINJ SUBQ HS Lisinopril (Lisinopril) 30 Mg Tablet 30 MG PO DAILY Methadone (Methadone) 10 Mg Tab 70 MG PO DAILY Mirtazapine (Mirtazapine) 15 Mg Tablet 15 MG PO HS NPH, Human Insulin Isophane (HUMulin-N U100 Insulin Kwikpen) 100 Unit/1 Ml Insuln.pen 8 PENINJ SUBQ TIDWM Nicotine 14 mg/24 hr Patch (Nicotine 14 mg/24 hr Patch) 1 Each Patch.td24 1 PATCH TRANSDERM DAILY Omeprazole (Omeprazole) 20 Mg Capsule.dr 20 MG PO QAM Gsm659/Iron Fumarate/FA/Dss ( 19 Tablet) 1 Each Tablet 1 EACH PO QAM Potassium Chloride ER (Potassium Chloride ER) 10 Meq Tablet 10 MEQ PO DAILYWM TAKE WITH FOOD Prednisone (PredniSONE) 10 Mg Tablet 10 MG PO DAILY Prednisone (PredniSONE) 20 Mg Tablet 20 MG PO DAILY Rivaroxaban (Xarelto) 20 Mg Tablet 20 MG PO DAILY Sulfamethoxazole/Trimeth 800-160 mg (Bactrim DS 800-160 mg) 1 Each Tablet 1 TABLET PO 3 times per week MWF Scheduled PRN Albuterol Neb Soln (Albuterol Neb Soln) 1.25 Mg/3 Ml Vial.neb 1.25 MG NEB Q2H PRN PRN For Shortness of Breath Albuterol Sulfate (Ventolin HFA Inhaler) 200 Puff/18 Gm Inhaler 1 PUFF INH Q4 PRN PRN For Wheezing Fluticasone Propionate (Fluticasone Propionate Nasal) 16 Gm [place].susp 2 SPRAYS NASAL DAILY PRN PRN For Congestion Hydroxyzine Pamoate (HydrOXYzine Pamoate) 50 Mg Capsule 50 MG PO QID PRN PRN For Anxiety Ipratropium/Albuterol Sulfate (Iprat-Albut 0.5-3(2.5) mg/3 mL Inhalant Soln) 3 Ml Ampul.neb 3 ML NEB Q4H PRN PRN For Wheezing Lorazepam (Lorazepam) 0.5 Mg Tablet 0.5 MG PO BID PRN PRN For Anxiety Lorazepam (Ativan) 1 Mg Tablet 1 MG PO HS PRN PRN For Anxiety Polyethylene Glycol 3350 (Polyethylene Glycol 3350) 17 Gm Powd.pack 17 GM PO DAILY PRN PRN For Constipation Prazosin (Prazosin) 2 Mg Capsule 4 MG PO HS PRN PRN nightmares "NIGHTMARES" Propranolol HCl (Propranolol HCl) 10 Mg Tablet 10 MG PO TID PRN PRN For Anxiety oxyCODONE-Acetaminophen 5-325 mg (oxyCODONE-Acetaminophen 5-325 mg) 1 Each Tablet 1-2 TAB PO Q6 PRN PRN For Pain General Time Seen by MD: 10:15 Chief Complaint Altered mental status Hx Obtained From: EMS Arrived By: Ambulance Onset Occurred: Onset unknown Symptom Duration: Since onset Recent Healthcare: No recent doctor visit, Recent hospitalization Similar Sx Previous: Yes Past Medical History Past Medical History Notes: care services manager: Dr. 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 Ambulatory Status Walker Review of Systems Unable to Obtain ROS Mental status Full Review of Systems Neurologic: Reports: Change LOC Complete sys rev & neg: except as marked. Physical Exam Vital Signs Vital Signs Date Time Temp Pulse Resp B/P Pulse Ox O2 Delivery O2 Flow Rate FiO2 04/15/17 13:27 98 16 98 Nasal Cannula 2 04/15/17 13:04 98 19 106/48 93 Nasal Cannula 3 04/15/17 12:37 99 17 106/51 96 Simple Mask 6 04/15/17 10:42 97 16 127/63 100 Simple Mask 6 04/15/17 10:34 36.5 90 20 93/32 98 Non-Rebreather 15 Initial VS: Reviewed ENT: Mucous membranes moist, Conjunctiva normal, No scleral icterus Abdomen / GI: No distention Extremities: Vascular intact, Neuro intact, No swelling, No tenderness General: Somnolent. Exam limited due to altered mental status. Head / Eyes: Atraumatic, Normocephalic, PERRL, EOMI Respiratory / Chest: Atraumatic Coarse breath sounds. Cardiovascular: Heart rate NL, Regular rhythm, Heart sounds NL, No gallop, No murmurs, No rubs Skin: Warm, Dry, Intact Multiple stigmata of IV heroin abuse, no sign of recent use. Neurological: Awakens to painful stimuli. No lateralizing neurological deficits. Interpretation & Diagnostics BLOOD GAS REPORT: pH: 7.260 pCO2: 62 pO2: 165.0 cHCO3: 26.8 cBase: -0.7 Urine Drug tox: positive for benzodiazepines, opiates, methadone, and oxycodone. Urine Dip: SP GRAVITY: 1.010 pH: 6 Lab Results Interpretation Result Diagram: 04/15/17 1029 04/15/17 1029 Test 04/15/17 10:29 04/15/17 10:43 04/15/17 12:00 04/15/17 13:27 White Blood Count 16.3th/mm3 (3.8-10.1) Red Blood Count 4.69mil/mm3 (3.90-5.20) Hemoglobin 13.2g/dL (12.0-15.6) Hematocrit 40.2% (35.0-46.0) Mean Corpuscular Volume 85.7fL (81-100) Mean Corpuscular Hemoglobin 28.1pg (27.0-35.0) Mean Corpuscular Hemoglobin Concent 32.8% (32.0-37.0) Red Cell Distribution Width 19.1% (12.3-15.4) Platelet Count 332bil/L (150-400) Neutrophils (%) (Auto) 77.5% (40-74) Lymphocytes (%) (Auto) 12.8% (14-46) Monocytes (%) (Auto) 4.2% (4-12) Eosinophils (%) (Auto) 3.9% (0-5) Basophils (%) (Auto) 0.2% (0-3) Sodium Level 136mEq/L (134-144) Potassium Level 5.9mEq/L (3.5-5.2) Chloride Level 98mEq/L (97-108) Carbon Dioxide Level 24mmol/L (18-29) Blood Urea Nitrogen 45mg/dL (6-24) Creatinine 1.06mg/dL (0.57-1.00) Estimat Glomerular Filtration Rate 77mL/min (>59) Glucose Level 159mg/dL (60-99) Lactic Acid Level 2.0mmol/L (0.4-2.0) Calcium Level 8.3mg/dL (8.5-10.1) Total Bilirubin 0.4mg/dL (0.0-1.2) Aspartate Amino Transf (AST/SGOT) 19U/L (0-50) Alanine Aminotransferase (ALT/SGPT) 40U/L (0-32) Alkaline Phosphatase 97U/L (25-150) Total Protein 5.9g/dL (6.4-8.4) Albumin 3.2g/dL (3.4-5.0) Ammonia 36ug/dL (18-53) Urine Color Straw (YELLOW) Urine Appearance Hazy (CLEAR,HAZY) Urine pH 6.0 (5.0-8.0) Urine Specific [place] 1.010 (1.003-1.035) Urine Protein Negativemg/dL (NEG,TRACE) Urine Glucose (UA) Negativemg/dL (NEGATIVE) Urine Ketones Negativemg/dL (NEGATIVE) Urine Occult Blood Negative (NEGATIVE) Urine Nitrite Negative (NEGATIVE) Urine Bilirubin Negative (NEGATIVE) Urine Urobilinogen Normalmg/dL (NORMAL) Urine Leukocyte Esterase Negative (NEGATIVE) Urine RBC 0-2/hpf (0-2) Urine WBC 0-5/hpf (0-5) Urine Epithelial Cells Occasional/hpf (NONE-MOD) Urine Crystals None seen (NONE SEEN) Urine Bacteria Few/hpf (NONE-FEW) Urine Hyaline Casts Occasional/lpf (NONE) Urine Granular Casts None seen (NONE SEEN) Urine Waxy Casts None seen (NONE SEEN) Urine Red Blood Cell Casts None seen (NONE SEEN) Urine White Blood Cell Casts None seen (NONE SEEN) Urine Mucus None seen (None Seen) Urine Trichomonas None seen (NONE SEEN) Urine Yeast Few (NONE SEEN) Urinalysis Comment None Urine Culture Reflexed Not indicated Urine Opiates Screen Negative Urine Methadone Screen Positive Urine Barbiturates Screen Negative Urine Amphetamines Screen Negative Urine Benzodiazepines Screen Negative Urine Cocaine Metabolite Screen Negative Urine Cannabinoids Screen Negative Total Creatine Kinase 31U/L (21-215) ECG Interpretation ECG Interpretation: Normal axis. Normal intervals. Borderline QT prolongation. No ST segment elevation. No acute T wave abnormalities. Inferior Q waves present. When compared to prior dated 03/29/17 pt is no longer tachycardic. Time: 10:27 Interpreted by: ED physician Normal ECG Interpretation: Normal rate (89), Normal sinus rhythm X-Ray Chest Interpretation Chest Xray Interpretation: IMPRESSION: Increased pulmonary vascualrity consistent with edema. Dictated by: Christiana Cole M.D. on 04/15/2017 at 10:39 View: Portable, 1 view Interpretation / Wet Read by: Interpret - Radiologist CT Head Interpretation IMPRESSION: No CT evidence of acute intracranial pathology. Dictated by: Willis Durbin M.D. on 04/15/2017 at 12:05 Study: Head CT no contrast Interpretation / Wet Read by: Interpret - Radiologist Re-Eval/Medical Decision Med Decision/Clinical Course Pt is a 56 year old female with a hx of DM, COPD, DVT, acute kidney injury and IV heroin abuse (currently on methadone) presenting to the ED due to decreased responsiveness and hypoxia. Her roommate called medics because she noticed that the pt was lethargic, and could not be awakened. Her O2 was 83% at home, she was noted to be hypotensive and ran out. She has had no recent changes in her methadone dosage. She was just discharged from the hospital 2 days ago for a DVT. HPI limited due to patient condition. Upon arrival the patient was somnolent, minimally responsive, hypotensive with a blood pressure in the 70s over 40s and unable to provide any history. 2 peripheral IVs were obtained and the patient was placed on supplemental oxygen. Narcan was administered with marked improvement in her blood pressure and level of alertness. Administered 40mg IV lasix, insulin and glucose, and Albuterol. Lab for studies notable as below: leukocytosis 16.4 hematocrit 40.2 lactate 2.0 ammonia 36 BUN 45 Creatinine 1.06 K 5.9 borderline elevated Mildly elevated ALT Urinalysis without signs of UTI Urine drug screen positive for benzodiazepines, opiates, methadone and oxycodone Chest x ray: Increased pulmonary vascularity consistent with edema. EKG was obtained and interpreted by myself as documented above. Arterial blood gas demonstrated PCO2 in the 60s and pH of 7.24 consistent with hypercarbic respiratory failure. The patient's respiratory rate dramatically improved after administration of Narcan and therefore I opted to not place the patient on BiPAP. CT head: IMPRESSION: No CT evidence of acute intracranial pathology. The patient's overall presentation seems most consistent with overdose on methadone though her urine drug screen is also positive for oxycodone and benzodiazepines raising suspicion that she may be ingesting other opiates/ substances is capable of causing respiratory depression, given the long half life of methadone and the patient's profound hypoxia and hypotension on arrival I feel that she warrants admission for further management. Patient was discussed with medical hospitalist and transferred in stable condition. Cause of her leukocytosis remains unclear at the suspect this may be related to deep marginalization. No evidence of pneumonia, soft tissue infection, urinary tract infection or meningitis. She has remained afebrile. Patient is also noted to have acute kidney injury as well as hyperkalemia which was confirmed on repeat lab draw. Patient had slightly peaked-appearing T waves and therefore was aggressively treated with insulin/glucose, furosemide, kayexalate. Time of Eval: 10:27 Patient Status: Condition improved Re-Evaluation/Progress Note: Pt improved with Narcan. Consultation : Referral / Consult Name: Maulik Sommer MD Consulted With: Hospitalist Call Returned at: 13:10 Mobile Home Set Up Person: Will see patient, Agrees with plan, Accepts admit Counseled Regarding: Diagnosis, Lab results, Need for admission Discharge & Departure Primary Impression: Hyperkalemia Additional Impressions: Acute kidney injury Altered mental status Altered mental status type: unspecified Qualified Code: R41.82 - Altered mental status, unspecified Leukocytosis Leukocytosis type: unspecified Qualified Code: D72.829 - Elevated white blood cell count, unspecified Respiratory failure Chronicity: unspecified Respiratory failure complication: hypercapnia Qualified Code: J96.92 - Respiratory failure, unspecified with hypercapnia Hypercarbia Disposition: ADMITTED TO HOSPITAL Discharge Condition All VS Reviewed: Yes Condition: Improved Referrals: Martha Lanza (PCP) Crit Care Except Billable Proc Time Spent: 105-134 minutes Services Performed: Patient management by me, Time spent at bedside, Reviewing test results, Reviewing imaging, Discussing patient care, Documentation in record, Time with fam/surrogate Scribe Attestation Portions of this note were transcribed by Tori Braden. I, Dr. Alexander personally performed the history, physical exam and medical decision-making; I reviewed and confirmed the accuracy of the information in the transcribed note. Signed by: Trish Carmichael, 04/15/2017. copies to: Martha Lanza Beck O MD Apr 15, 2017 10:32 TORI BRADEN Apr 15, 2017 10:43
--- NOTE | 2017-04-15 10:41 | DRSVH ---
PROCEDURE: X-RAY CHEST ONE VIEW, PORTABLE ([id number]) INDICATIONS: SHORTNESS OF BREATH TECHNIQUE: One view of the chest was acquired. COMPARISON: [facility], CR, XR CHEST 1VW (PORTABLE), 04/02/2017, 4:58. FINDINGS: Surgical changes and devices: None. Lungs and pleura: No pleural effusions or pneumothorax. There is increased pulmonary vascularity. Mediastinum: Mediastinal contours appear normal. Heart size is normal. Bones and chest wall: No suspicious bony lesions. Overlying soft tissues appear unremarkable. IMPRESSION: Increased pulmonary vascualrity consistent with edema. Dictated by: Christiana Cole M.D. on 04/15/2017 at 10:39 Approved by: Christiana Cole M.D. on 04/15/2017 at 10:40
[2017-04-15 10:59] LABS: BASOPHILS % (AUTO) 0.2 % (0-3); EOSINOPHILS % (AUTO) 3.9 % (0-5); MONOCYTES % (AUTO) 4.2 % (4-12); Mean Corpuscular Hemoglobin 28.1 pg (27.0-35.0); Mean Corpuscular Volume 85.7 fL (81-100); NEUTROPHILS % (AUTO) 77.5 % (40-74); Platelet Count 332 bil/L (150-400)
--- NOTE | 2017-04-15 12:09 | DRSVH ---
PROCEDURE: CT BRAIN WITHOUT CONTRAST ([id number]) INDICATIONS: ams TECHNIQUE: Noncontrast 4.5 mm thick angled axial sections acquired from the foramen magnum to the vertex, with c oronal reformats. COMPARISON: [facility], CT, CT CHEST WO CON, 04/03/2017, 9:06. FINDINGS: Image quality: Excellent. CSF spaces: Basal cisterns are patent. No extra-axial fluid collections. Ventricles are normal in size and shape. Brain: No midline shift. No intracranial masses or hemorrhage. Byrne-white matter interface is norm al. Old left parietal lobe encephalomalacia. Skull and face: Calvarium and visualized facial bones are intact, without suspicious lesions. Sinuses: Visualized sinuses and mastoids are clear. IMPRESSION: No CT evidence of acute intracranial pathology. Dictated by: Willis Durbin M.D. on 04/15/2017 at 12:05 Approved by: Willis Durbin M.D. on 04/15/2017 at 12:07
[2017-04-15] MEDS ORDERED: Albuterol 0.5% (5mg/mL) 20 mL Inhalation Solution NEB ONE (12:25)
[2017-04-15] MEDS ORDERED: Furosemide 10 mg/mL 2 mL Inj IVPUSH ONE (12:25)
[2017-04-15] MEDS ORDERED: Insulin Human REGular-Omnicell 100 Unit/mL IV ONE (12:25)
[2017-04-15] MEDS ORDERED: Furosemide 10 mg/mL 4 mL Inj IVPUSH ONE (12:30)
[2017-04-15 12:31] LABS: APPEARANCE,URINE HAZY (CLEAR,HAZY); COLOR,URINE STRAW (YELLOW); OCCULT BLOOD,URINE NEGATIVE (NEGATIVE)
[2017-04-15 12:32] LABS: UROBILINOGEN,URINE NORMAL (NORMAL); YEAST,URINE FEW (NONE SEEN)
--- NOTE | 2017-04-15 15:11 | PCM.HPMED ---
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 Patient is roommate called EMS as patient was lethargic and was not waking up this a.m. Per EMS oxygen saturation was 83%. Patient is awake and alert at this time and provided most of this history. She says that she takes methadone however dose is not changed recently. She was also discharged on oxycodone and told to take 1-2 tablets however said that she also took 2 this morning in addition to the methadone. She also takes a benzodiazepine to you be used nightly which she also took this morning. Patient reports problem with oxygen tank since discharged in difficulty operating and sometimes it is not turned on. Denies any chest pain. Denies any current shortness of breath. Per ED note Upon arrival the patient was somnolent, minimally responsive, hypotensive with a blood pressure in the 70s over 40s and unable to provide any history. 2 peripheral IVs were obtained and the patient was placed on supplemental oxygen. Narcan was administered with marked improvement in her blood pressure and level of alertness. Administered 40mg IV lasix, insulin and glucose, and Albuterol. The patient's respiratory rate dramatically improved after administration of Narcan and therefore I opted to not place the patient on BiPAP. Review of Systems: 12 point ROS negative except that in HPI Allergies Coded Allergies: iodine (Verified Allergy, Unknown, 02/20/17) Egg Yolk (Verified Adverse Reaction, Intermediate, Nausea,Vomiting, ) Home Medications Aspirin Chew (Aspirin Chew) 81 Mg Tablet 81 MG PO DAILY Atorvastatin Calcium (Atorvastatin Calcium) 20 Mg Tablet 20 MG PO HS Fluoxetine (Fluoxetine) 20 Mg Capsule 40 MG PO QAM Furosemide (Furosemide) 40 Mg Tablet 40 MG PO QAM Gabapentin (Gabapentin) 300 Mg Capsule 600 MG PO BID Gabapentin (Gabapentin) 300 Mg Capsule 300 MG PO MIDDAY Insulin Glargine (Lantus U100 Solostar Insulin Pen) 100 Unit/1 Ml Insuln.pen 10 PENINJ SUBQ HS Lisinopril (Lisinopril) 30 Mg Tablet 30 MG PO DAILY Methadone (Methadone) 10 Mg Tab 70 MG PO DAILY Mirtazapine (Mirtazapine) 15 Mg Tablet 15 MG PO HS NPH, Human Insulin Isophane (HUMulin-N U100 Insulin Kwikpen) 100 Unit/1 Ml Insuln.pen 8 PENINJ SUBQ TIDWM Nicotine 14 mg/24 hr Patch (Nicotine 14 mg/24 hr Patch) 1 Each Patch.td24 1 PATCH TRANSDERM DAILY Omeprazole (Omeprazole) 20 Mg Capsule.dr 20 MG PO QAM Htu163/Iron Fumarate/FA/Dss ( 19 Tablet) 1 Each Tablet 1 EACH PO QAM Potassium Chloride ER (Potassium Chloride ER) 10 Meq Tablet 10 MEQ PO DAILYWM TAKE WITH FOOD Prednisone (PredniSONE) 10 Mg Tablet 10 MG PO DAILY Prednisone (PredniSONE) 20 Mg Tablet 20 MG PO DAILY Rivaroxaban (Xarelto) 20 Mg Tablet 20 MG PO DAILY Sulfamethoxazole/Trimeth 800-160 mg (Bactrim DS 800-160 mg) 1 Each Tablet 1 TABLET PO 3 times per week MWF Scheduled PRN Albuterol Neb Soln (Albuterol Neb Soln) 1.25 Mg/3 Ml Vial.neb 1.25 MG NEB Q2H PRN PRN For Shortness of Breath Albuterol Sulfate (Ventolin HFA Inhaler) 200 Puff/18 Gm Inhaler 1 PUFF INH Q4 PRN PRN For Wheezing Fluticasone Propionate (Fluticasone Propionate Nasal) 16 Gm [place].susp 2 SPRAYS NASAL DAILY PRN PRN For Congestion Hydroxyzine Pamoate (HydrOXYzine Pamoate) 50 Mg Capsule 50 MG PO QID PRN PRN For Anxiety Ipratropium/Albuterol Sulfate (Iprat-Albut 0.5-3(2.5) mg/3 mL Inhalant Soln) 3 Ml Ampul.neb 3 ML NEB Q4H PRN PRN For Wheezing Lorazepam (Lorazepam) 0.5 Mg Tablet 0.5 MG PO BID PRN PRN For Anxiety Lorazepam (Ativan) 1 Mg Tablet 1 MG PO HS PRN PRN For Anxiety Polyethylene Glycol 3350 (Polyethylene Glycol 3350) 17 Gm Powd.pack 17 GM PO DAILY PRN PRN For Constipation Prazosin (Prazosin) 2 Mg Capsule 4 MG PO HS PRN PRN nightmares "NIGHTMARES" Propranolol HCl (Propranolol HCl) 10 Mg Tablet 10 MG PO TID PRN PRN For Anxiety oxyCODONE-Acetaminophen 5-325 mg (oxyCODONE-Acetaminophen 5-325 mg) 1 Each Tablet 1-2 TAB PO Q6 PRN PRN For Pain PMH DVT interstitial lung disease emphysema aspiration pneumonia depresssion anxiety acute on chronic respiratory failure sepsis Reports: COPD, Diabetes mellitus Surgical History Rotator cuff surgery Multiple abscess drainages Status post left carotid endarterectomy and patch angioplasty Lung biopsy Reports: Family History Non-Contrib Social History Hx Alcohol Use: No Hx Substance Use: Yes (hx heroin use, currently on methadone) Hx Tobacco Use: Yes (long time smoker with last cigarette 2 days before admission) Smoking Status: Current Some Day Smoker Exam Vital Signs Vital Sign - Last Date Time Temp Pulse Resp B/P Pulse Ox O2 Delivery O2 Flow Rate FiO2 04/15/17 13:59 102 18 108/55 93 Nasal Cannula 3 04/15/17 10:34 36.5 Exam Gen: NAD, AOx3, Sleepy but answers questions and follows commands. HEENT: NCAT, PERRLA, EOMI, MMM, sclera anicteric. Neck: Soft, supple, no thyromegaly/JVD/LAD. Resp: +Bibasilar crackles. CV: S1 S2, RRR, No M/R/G Abd: Soft, (+) BS, NT/ND, no guarding/rebound/organomegaly. Ext: +PP, No edema. Skin: warm/dry/intact Neuro/Psych: Cooperative, appr mood/affect. CN II-XII grossly intact. No focal deficits. Lab and Diagnostics Labs BLOOD GAS REPORT: pH: 7.260 pCO2: 62 pO2: 165.0 cHCO3: 26.8 cBase: -0.7 Urine Drug tox: positive for benzodiazepines, opiates, methadone, and oxycodone. Result Diagram: 04/15/17 1029 04/15/17 1029 X-Rays, CTs and MRIs ECG Interpretation: Normal axis. Normal intervals. Borderline QT prolongation. No ST segment elevation. No acute T wave abnormalities. Inferior Q waves present. When compared to prior dated 03/29/17 pt is no longer tachycardic. Time: 10:27 Interpreted by: ED physician Normal ECG Interpretation: Normal rate (89), Normal sinus rhythm X-Ray Chest Interpretation Chest Xray Interpretation: IMPRESSION: Increased pulmonary vascualrity consistent with edema. Dictated by: Christiana Cole M.D. on 04/15/2017 at 10:39 View: Portable, 1 view Interpretation / Wet Read by: Interpret - Radiologist CT Head Interpretation IMPRESSION: No CT evidence of acute intracranial pathology. Dictated by: Willis Durbin M.D. 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 AMS- POA, active- Likely 2/2 to Narcotic overdose as pt took Methadone, 2 tabs Oxycodone, and Lorazepam this AM before episode. Hypoxia due to issues w/ Oxygen tank likely contributing. Pt presented obtunded. Pt rcvd Narcan 0.4mg IV in ED and was immediatley more alert. - Pt has remained awake and alert since since transfer from ED. - Stable at this time, frequent neuro checks, monitoring specialist, continue pulse ox monitor. - Narcan IV ordered prn for respiratory depression. Acute on chronic hypercapnic respiratory failure, present on admission. Ongoing. Stable on 3L NC. Likely worsened due to respiratory distress from narcotic overdose. hx of severe pulmonary compromise due to Desquamated Interstitial Pneumonia (DIP), COPD. Normally on Hm 02. -Patient has severe chronic pulmonary congestion, Last Echo was 02/15/17 showing EF 60-65%. -ABG- Ph 7.260, PCO2- 61.8. HCO3-26.8. -CXR shows some pulmonary congestion. -Will continue w/ Lasix as renal function allows. -Stable at this time, continue pulse ox monitor. Monitor for apnea. Hyperkalemia- poa, active- 5.9 on admit. Increased from 4.4 since discharge . -unclear etiology. Pt had hyperkalemia during previous admission. Pt is taking PO KCL supplements, will hold. -EKG shows some peaking of T waves -ED, given Lasix 40mg IV, Alb neb x1, Insulin Regular 10U. -Recheck K+ in PM, can give another dose of Lasix IV. Acute kidney failure, present on admission. Active. Scr 1.06 on admit, inc from 0.67 on 04/13. - Unclear etiology may be secondary to metformin (continuing to hold metformin) vs decreased po intake. - Nephrology was following during previous admit, no outpatient Psychiatric Nursing Assistant as renal function/K lvl returned to normal. - Consider Nephro consult if no improvement. History of polysubstance abuse. Stable. -Previously used heroin, marijuana, cocaine, and methamphetamines currently has not used in over 2 years -Continue Methadone hm regimen. -Avoid excess narcotics. Recent Occlusive right DVT dx 02/2017, present on admission, active. -Likely secondary to decreased mobility secondary to right hip pain. -Continue Xarelto 20 mg daily Leukocytosis- poa, active- afebrile, no evidence of infection. More likely due to chronic steroids. Will monitor for evidence of infection. -Repeat CBC in AM. If febrile, obtain cultures, start antibiotics. Non-insulin dependent diabetes type II, present on admission. Stable -Continue to hold metformin -Continue insulin for blood sugar control while the patient remains on prednisone -Lantus currently to 30 units -Continue Insulin sliding scale -Continue to monitor closely -Diabetes education Depression/PTSD, present on admission. Ongoing. -Continue fluoxetine, prazosin, propanolol, hydroxyzine, Ativan -Hold Lorazepam. Hypertension, chronic. Slightly labile and elevated. -hypotensive on admit, hold hm meds for now. Coronary artery disease, present on admission. Stable. -Continue aspirin and atorvastatin Chronic pain, present on admission. Stable. -Continue methadone and gabapentin Nicotine dependence, present on admission. Stable. -Nicotine patch as needed Code- Full Status- Patient is admitted under inpatient status expected length of stay greater than 2 midnights due to severity of presenting symptoms, risk of adverse events, and complexity of treatment plan. Pain Evaluation: Adequate Pain Control GI Prophylaxis: Proton Pump Inhibitor VTE Prophylaxis: Other (Xarelto) Resuscitation Status: CPR: Attempt Resuscitation Maulik Sommer MD Apr 15, 2017 15:11
--- NOTE | 2017-04-15 15:27 | NUR ---
ADMIT Admitted a 56/F into room 3027 following report from Merlene Murray, ED RN. Pt arrived via stretcher, able to amb with assist to bed. Pt c/o chronic R hip pain. Introduced to staff, call light/bed controls. Pt on 5L via NC, sats 91-94%. Pt drowsy, dozing off during admission process but awakes with verbal stimuli. Pt placed on TELE. Pt up to BSC with SBA assist, weak. Pt reports feeling hungry. Pt's main concern is location of w/c, this RN called ED RN who reports pt arrived via EMS on stretcher WITHOUT her w/c. Pt phoned mother to see if she could go to [place] to locate w/c. Pt has a purse that she placed in drawer which has medications in it. Adamantly refused to allow medications to be locked up. Educated pt to not take meds while in hospital, she reports understanding and agrees. Pt hooked up to CPOX at bedside. Bed in lowest, locked position and call light in reach. Family in to visit.
[2017-04-15] MEDS ORDERED: Polyethylene Glycol (PEG) 17 Gm Powder PO PRN (15:40)
[2017-04-15] MEDS ORDERED: Albuterol-Ipratropium 3 mL Inhalation Solution NEB PRN (15:45)
[2017-04-15] MEDS ORDERED: Albuterol 1.25 mg/3 mL Inhalation Solution NEB PRN (15:45)
[2017-04-15] MEDS ORDERED: predniSONE 10 mg Tablet PO SCH (16:00)
[2017-04-15] MEDS ORDERED: Glucose 40% Oral Gel 15 Gm Tube PO PRN (18:20)
[2017-04-15] MEDS: Insulin LISPRO Low-Dose Scale SUBQ SCH (20:05)
[2017-04-15] MEDS: Insulin GLARgine 100 Unit/mL Syringe SUBQ SCH (20:13)
[2017-04-16] VITALS (7 sets, daily range): BP systolic 101–132; BP diastolic 61–77; PULSE 78–114; RESP 16–22; O2SAT 85–97
--- NOTE | 2017-04-16 06:13 | NUR ---
mentation/desat/belongings Pt is more awake this shift, able to make her needs known. can use the BSC with SBA or minimal assist to void. puts minimal weight to her right foot due to right hip pain. tolerates diabetic diet w/o N/V. slept most of the night, but easily awaken. SpO2 in high 90s on 5L O2 via NC when asleep, desats to high 70s, low 80s with activity - resolves after resting in bed. RR 14, unlabored. Pt refused to have her prescription pills sent to pharmacy to store. Pt agreed to lock her whole bag (with prescription meds in it) in the closet; done with Security. Vistaril and Prazosin given per pt's request - effective. hourly rounding done. bed alarm on for safety.
[2017-04-16 06:16] LABS: BASOPHILS % (AUTO) 0.1 % (0-3); EOSINOPHILS % (AUTO) 4.1 % (0-5); MONOCYTES % (AUTO) 6.5 % (4-12); Mean Corpuscular Volume 88.5 fL (81-100); NEUTROPHILS % (AUTO) 63.2 % (40-74); Platelet Count 251 bil/L (150-400)
[2017-04-16] MEDS ORDERED: _PredniSONE 10 mg Tablet PO SCH (08:30)
[2017-04-16] MEDS ORDERED: predniSONE 10 mg Tablet PO SCH (08:35)
[2017-04-16] MEDS: Pantoprazole 20 mg ER24 Tablet PO SCH (08:44)
--- NOTE | 2017-04-16 08:44 | PCM.PNMED ---
Subjective Date of Service Apr 16, 2017 Subjective Was awake and alert. Tolerated diet. c/o R Hip pain. Was on 5L Oxygen however sats >95%. Exam Vital Signs Vital Sign - Last Date Time Temp Pulse Resp B/P Pulse Ox O2 Delivery O2 Flow Rate FiO2 04/16/17 06:22 86 04/16/17 05:12 36.4 16 101/64 97 Nasal Cannula 5.00 Intake and Output 04/15/17 04/15/17 04/16/17 Cumulative From/Thru 15:00 23:00 07:00 04/15/17 10:34 - 04/16/17 05:14 Intake Total 999 ml 650 ml 380 ml 2029 ml Output Total 800 ml 1150 ml 1950 ml Balance 999 ml -150 ml -770 ml 79 ml Intake Oral 650 ml 380 ml 1030 ml IV Total 999 ml 999 ml Output Urine Total 800 ml 1150 ml 1950 ml # Bowel Movements 0 0 0 Exam Gen: NAD, AOx3, alert and awake. HEENT: NCAT, PERRLA, EOMI, MMM, sclera anicteric. Neck: Soft, supple, no thyromegaly/JVD/LAD. Resp: +Bibasilar crackles- improved. CV: S1 S2, RRR, No M/R/G Abd: Soft, (+) BS, NT/ND, no guarding/rebound/organomegaly. Ext: +PP, No edema. Skin: warm/dry/intact Neuro/Psych: Cooperative, appr mood/affect. CN II-XII grossly intact. No focal deficits. IVs and Medications Medications Reviewed: Medications were reviewed in detail Lab and Diagnostics Result Diagram: 04/16/17 0500 04/16/17 0604 Microbiology X-Ray Chest Interpretation Chest Xray Interpretation: IMPRESSION: Increased pulmonary vascualrity consistent with edema. Dictated by: Christiana Cole M.D. on 04/15/2017 at 10:39 View: Portable, 1 view Interpretation / Wet Read by: Interpret - Radiologist CT Head Interpretation IMPRESSION: No CT evidence of acute intracranial pathology. Dictated by: Willis Durbin M.D. on 04/15/2017 at 12:05 Study: Head CT no contrast Interpretation / Wet Read by: Interpret - Radiologist X-Rays, CTs and MRIs ECG Interpretation: Normal axis. Normal intervals. Borderline QT prolongation. No ST segment elevation. No acute T wave abnormalities. Inferior Q waves present. When compared to prior dated 03/29/17 pt is no longer tachycardic. Time: 10:27 Interpreted by: ED physician Normal ECG Interpretation: Normal rate (89), Normal sinus rhythm Assessment & Plan Pt is pleasant 56 year old female with a severe pulmonary compromise due to Desquamated Interstitial Pneumonia (DIP), COPD on home O2, pulmonary hypertension, type II diabetes, and severe osteoarthritis, hx of IVDA currently taking Methadone, with recent discharge from [facility] 04/13 for RLE DVT on Xarelto, presenting to the ED due to decreased responsiveness and acute on chronic hypercapnic respiratory failure. AMS- POA, resolved- Likely 2/2 to Narcotic overdose as pt took Methadone, 2 tabs Oxycodone, and Lorazepam this AM before episode. Hypoxia due to issues w/ Oxygen tank likely contributing. Pt presented obtunded. Pt rcvd Narcan 0.4mg IV in ED and was immediatley more alert. - Pt remained awake and alert since since transfer from ED. - monitoring manager, continue pulse ox monitor. - Narcan IV ordered prn for respiratory depression, did not require again. - Decrease dose of oxycodone to 5mg q4h as needed only. Acute on chronic hypercapnic respiratory failure, present on admission. Ongoing. Stable on 3L NC. Likely worsened due to respiratory distress from narcotic overdose. hx of severe pulmonary compromise due to Desquamated Interstitial Pneumonia (DIP), COPD. Normally on Hm 02. -Patient has severe chronic pulmonary congestion, Last Echo was 02/15/17 showing EF 60-65%. -ABG- Ph 7.260, PCO2- 61.8. HCO3-26.8. -CXR shows some pulmonary congestion. - Resumed PO Lasix. - Titrated down oxygen to baseline of 2-3 L w/ goal 88-92%. - Smoking cessation advised. Desquamated Interstitial Pneumonia (DIP), chronic, active- Per previous discharge instructions -Follow up planned with Pulmonary as outpatient, Dr. Francisco, April. -Continue low prednisone taper started on 04/13- 60 mg daily for one week, then on 04/20- 50 mg daily for one week, on 04/27- then 40 mg daily for one week, on - then 30 mg daily for one week, and then 10 mg daily for one week. -Pneumocystis prophylaxis with Bactrim double strength one tablet three times a week as long as she is on the steroids. Dr. Francisco will manage this when sees her for followup. Hyperkalemia- poa, improving. 5.9 on admit.(4.4 since discharge 04/13). improved to 4.7. -unclear etiology. Pt had hyperkalemia during previous admission. Pt is taking PO KCL supplements, will hold. -EKG shows some peaking of T waves -ED, given Lasix 40mg IV, Alb neb x1, Insulin Regular 10U. - discontinued oral potassium supplements. History of polysubstance abuse. Stable. -Previously used heroin, marijuana, cocaine, and methamphetamines currently has not used in over 2 years -Continue Methadone hm regimen. -Avoid excess narcotics. Education provided. Acute kidney failure, present on admission. Resolved. Scr 1.06 on admit (inc from 0.67 on 04/13)-> improved to 0.71. - Unclear etiology may be secondary to metformin (continuing to hold metformin) vs decreased po intake. - Nephrology was following during previous admit, no outpatient Quality Review Trainer as renal function/K lvl returned to normal. Recent Occlusive right DVT dx 02/2017, present on admission, active. -Likely secondary to decreased mobility secondary to right hip pain. -Continue Xarelto 20 mg daily for 3-4 months. -Has follow up plan in place from previous discharge. Leukocytosis- poa, resolved- afebrile, no evidence of infection. More likely due to chronic steroids. Will monitor for evidence of infection. -Repeat CBC showed resolution. If febrile, obtain cultures, start antibiotics. Non-insulin dependent diabetes type II, present on admission. Stable -Continue insulin for blood sugar control while the patient remains on prednisone -Lantus 10 units qhs. -Continue Insulin sliding scale -Continue to monitor closely Depression/PTSD, present on admission. Ongoing. -Continue fluoxetine, prazosin, propanolol, hydroxyzine, Ativan -Hold Lorazepam. Hypertension, chronic. Slightly labile and elevated. -can resume Lisinopril on discharge. Coronary artery disease, present on admission. Stable. -Continue aspirin and atorvastatin Chronic pain, present on admission. Stable. -Continue methadone and gabapentin, held oxycodone. Nicotine dependence, present on admission. Stable. -Nicotine patch as needed Code- Full Dispo- - Discontinued oral potassium supplements. - Decrease dose of oxycodone to 5mg q4h as needed only. Avoid excess oxycodone as will cause respiratory depression. - Continue Xarelto 20 mg daily for 3-4 months, length to be determined by PCP, Dr. Lanza. - Follow up planned with Pulmonary as outpatient, Dr. Francisco, April. - Continue low prednisone taper started on 04/13- 60 mg daily for one week, then on 04/20- 50 mg daily for one week, on 04/27- then 40 mg daily for one week, on - then 30 mg daily for one week, and then 10 mg daily for one week. - Pneumocystis prophylaxis with Bactrim double strength one tablet three times a week as long as she is on the steroids. Dr. Francisco will manage this when sees her for followup GI Prophylaxis: Proton Pump Inhibitor VTE Prophylaxis: Other (Xarelto) VTE Mechanical Devices: Venous Foot Pump Resuscitation Status: CPR: Attempt Resuscitation Maulik Sommer MD Apr 16, 2017 08:44
[2017-04-16] MEDS: Insulin LISPRO Low-Dose Scale SUBQ SCH ×4 (08:48→20:58)
--- NOTE | 2017-04-16 15:22 | NUR ---
Oxygen Patient on 5L supplemental oxygen upon arrival this morning with saturations at 98%. Nurse decreased supplemental oxygen to 3L with saturations at 96%. Nurse then decreased oxygen to 2L and oxygen desaturated to 82%. Nurse placed oxygen back up to 3L with saturations at 86-88% with activity and up to 96% while at rest.
[2017-04-16] MEDS ORDERED: LORazepam 1 mg Tablet PO ONE (16:15)
[2017-04-16] MEDS ORDERED: Furosemide 10 mg/mL 4 mL Inj IVPUSH ONE (16:15)
[2017-04-16] MEDS: Insulin GLARgine 100 Unit/mL Syringe SUBQ SCH (21:08)
[2017-04-17 00:34] VITALS: BP 128/68; PULSE 90; RESP 20; O2SAT 94
[2017-04-17 06:17] VITALS: BP 125/79; PULSE 100; RESP 20; O2SAT 96
[2017-04-17 06:28] VITALS: PULSE 100
[2017-04-17] MEDS: Pantoprazole 20 mg ER24 Tablet PO SCH (07:48)
[2017-04-17] MEDS: Insulin LISPRO Low-Dose Scale SUBQ SCH (07:49)
[2017-04-17] MEDS ORDERED: predniSONE 20 mg Tablet PO SCH (08:00)
[2017-04-17 08:01] VITALS: PULSE 103; RESP 22; O2SAT 93
--- NOTE | 2017-04-17 08:36 | PCM.PNMED ---
Subjective Date of Service Apr 17, 2017 Subjective Pt denies worsening of SOB, still desaturating with exertion which pt says is baseline. Exam Vital Signs Vital Sign - Last Date Time Temp Pulse Resp B/P Pulse Ox O2 Delivery O2 Flow Rate FiO2 04/17/17 08:01 103 22 93 Nasal Cannula 3.00 04/17/17 06:17 36.2 125/79 Intake and Output 04/16/17 04/16/17 04/17/17 Cumulative From/Thru 15:00 23:00 07:00 04/15/17 10:34 - 04/17/17 06:17 Intake Total 10 ml 936 ml 600 ml 3575 ml Output Total 3810 ml 1600 ml 7360 ml Balance 10 ml -2874 ml -1000 ml -3785 ml Intake Oral 936 ml 600 ml 2566 ml IV Total 10 ml 1009 ml Output Urine Total 3810 ml 1600 ml 7360 ml # Bowel Movements 0 0 Exam Gen: NAD, AOx3, alert and awake. HEENT: NCAT, PERRLA, EOMI, MMM, sclera anicteric. Neck: Soft, supple, no thyromegaly/JVD/LAD. Resp: +Bibasilar crackles- stable. CV: S1 S2, RRR, No M/R/G Abd: Soft, (+) BS, NT/ND, no guarding/rebound/organomegaly. Ext: +PP, No edema. Skin: warm/dry/intact Neuro/Psych: Cooperative, appr mood/affect. CN II-XII grossly intact. No focal deficits. IVs and Medications Medications Reviewed: Medications were reviewed in detail Lab and Diagnostics Result Diagram: 04/16/17 0500 04/16/17 0604 X-Rays, CTs and MRIs ECG Interpretation: Normal axis. Normal intervals. Borderline QT prolongation. No ST segment elevation. No acute T wave abnormalities. Inferior Q waves present. When compared to prior dated 03/29/17 pt is no longer tachycardic. Time: 10:27 Interpreted by: ED physician Normal ECG Interpretation: Normal rate (89), Normal sinus rhythm X-Ray Chest Interpretation Chest Xray Interpretation: IMPRESSION: Increased pulmonary vascualrity consistent with edema. Dictated by: Christiana Cole M.D. on 04/15/2017 at 10:39 View: Portable, 1 view Interpretation / Wet Read by: Interpret - Radiologist CT Head Interpretation IMPRESSION: No CT evidence of acute intracranial pathology. Dictated by: Willis Durbin M.D. on 04/15/2017 at 12:05 Study: Head CT no contrast Interpretation / Wet Read by: Interpret - Radiologist Assessment & Plan Pt is pleasant 56 year old female with a severe pulmonary compromise due to Desquamated Interstitial Pneumonia (DIP), COPD on home O2, pulmonary hypertension, type II diabetes, and severe osteoarthritis, hx of IVDA currently taking Methadone, with recent discharge from [facility] 04/13 for RLE DVT on Xarelto, presenting to the ED due to decreased responsiveness and acute on chronic hypercapnic respiratory failure. AMS- POA, resolved- Likely 2/2 to Narcotic overdose as pt took Methadone, 2 tabs Oxycodone, and Lorazepam this AM before episode. Hypoxia due to issues w/ Oxygen tank likely contributing. Pt presented obtunded. Pt rcvd Narcan 0.4mg IV in ED and was immediatley more alert. - Pt remained awake and alert since since transfer from ED. - cardiac cath rn, continue pulse ox monitor. - Narcan IV ordered prn for respiratory depression, did not require again. - Decrease dose of oxycodone to 5mg q4h as needed only. Acute on chronic hypercapnic respiratory failure, present on admission. Ongoing. Stable on 3L NC. Likely worsened due to respiratory distress from narcotic overdose. hx of severe pulmonary compromise due to Desquamated Interstitial Pneumonia (DIP), COPD. Normally on Hm 02. -Patient has severe chronic pulmonary congestion, Last Echo was 02/15/17 showing EF 60-65%. -ABG- Ph 7.260, PCO2- 61.8. HCO3-26.8. -CXR shows some pulmonary congestion. - Resumed PO Lasix. - Titrated down oxygen to baseline of 2-3 L w/ goal 88-92%. - Smoking cessation advised. - Given Additional dose of Lasix 40mg IV 04/17, CXR in AM in stable compared to prior. Desquamated Interstitial Pneumonia (DIP), chronic, active- Per previous discharge instructions -Follow up planned with Pulmonary as outpatient, Dr. Francisco, April. -Continue low prednisone taper started on 04/13- 60 mg daily for one week, then on 04/20- 50 mg daily for one week, on 04/27- then 40 mg daily for one week, on - then 30 mg daily for one week, and then 10 mg daily for one week. -Pneumocystis prophylaxis with Bactrim double strength one tablet three times a week as long as she is on the steroids. Dr. Francisco will manage this when sees her for followup. Hyperkalemia- poa, improving. 5.9 on admit.(4.4 since discharge 04/13). improved to 4.7. -unclear etiology. Pt had hyperkalemia during previous admission. Pt is taking PO KCL supplements, will hold. -EKG shows some peaking of T waves -ED, given Lasix 40mg IV, Alb neb x1, Insulin Regular 10U. - discontinued oral potassium supplements. History of polysubstance abuse. Stable. -Previously used heroin, marijuana, cocaine, and methamphetamines currently has not used in over 2 years -Continue Methadone hm regimen. -Avoid excess narcotics. Education provided. Acute kidney failure, present on admission. Resolved. Scr 1.06 on admit (inc from 0.67 on 04/13)-> improved to 0.71. - Unclear etiology may be secondary to metformin (continuing to hold metformin) vs decreased po intake. - Nephrology was following during previous admit, no outpatient [facility] as renal function/K lvl returned to normal. Recent Occlusive right DVT dx 02/2017, present on admission, active. -Likely secondary to decreased mobility secondary to right hip pain. -Continue Xarelto 20 mg daily for 3-4 months. -Has follow up plan in place from previous discharge. Leukocytosis- poa, resolved- afebrile, no evidence of infection. More likely due to chronic steroids. Will monitor for evidence of infection. -Repeat CBC showed resolution. If febrile, obtain cultures, start antibiotics. Non-insulin dependent diabetes type II, present on admission. Stable -Continue insulin for blood sugar control while the patient remains on prednisone -Lantus 10 units qhs. -Continue Insulin sliding scale -Continue to monitor closely Depression/PTSD, present on admission. Ongoing. -Continue fluoxetine, prazosin, propanolol, hydroxyzine, Ativan -Hold Lorazepam. Hypertension, chronic. Slightly labile and elevated. -can resume Lisinopril on discharge. Coronary artery disease, present on admission. Stable. -Continue aspirin and atorvastatin Chronic pain, present on admission. Stable. -Continue methadone and gabapentin, held oxycodone. Nicotine dependence, present on admission. Stable. -Nicotine patch as needed Code- Full Dispo- Will discharge home with follow up plan from previous discharge 04/13. - Discontinued oral potassium supplements. - Decrease dose of oxycodone to 5mg q4h as needed only. Avoid excess oxycodone as will cause respiratory depression. - Continue Xarelto 20 mg daily for 3-4 months, length to be determined by PCP, Dr. Lanza. - Follow up planned with Pulmonary as outpatient, Dr. Francisco, April. - Continue low prednisone taper started on 04/13- 60 mg daily for one week, then on 04/20- 50 mg daily for one week, on 04/27- then 40 mg daily for one week, on - then 30 mg daily for one week, and then 10 mg daily for one week. - Pneumocystis prophylaxis with Bactrim double strength one tablet three times a week as long as she is on the steroids. Dr. Francisco will manage this when sees her for followup GI Prophylaxis: Proton Pump Inhibitor VTE Prophylaxis: Other (Xarelto) VTE Mechanical Devices: Venous Foot Pump Resuscitation Status: CPR: Attempt Resuscitation Maulik Sommer MD Apr 17, 2017 08:36
--- NOTE | 2017-04-17 08:48 | PCM.DC.MED ---
Discharge Summary Date of Service Apr 17, 2017 Dates of Hospitalization Date of Hospital Admission Apr 15, 2017 at 13:55 Date of Discharge: Apr 17, 2017 Providers: Admitting Physician: Maulik Sommer MD Primary Care Physician: Martha Lanza Attending Physician: Maulik Sommer MD Diagnosis at Time of Discharge Diagnosis at Time of Discharge -AMS due to suspected narcotic overdose- POA, resolved -Acute on chronic hypercapnic respiratory failure, present on admission. Ongoing. Stable on 3L NC. Likely worsened due to respiratory distress from narcotic overdose. hx of severe pulmonary compromise due to Desquamated Interstitial Pneumonia (DIP), COPD. Normally on Hm 02. -Desquamated Interstitial Pneumonia (DIP), chronic, active- -Hyperkalemia- poa, improving. -History of polysubstance abuse. Stable. -Acute kidney failure, present on admission. Resolved. -Recent Occlusive right DVT dx 02/2017, poa, active. -Non-insulin dependent diabetes type II, present on admission. Stable -Depression/PTSD, present on admission. Ongoing. -Hypertension, chronic. Slightly labile and elevated. -Coronary artery disease, present on admission. Stable. -Chronic pain, present on admission. Stable. -Nicotine dependence, present on admission. Stable. Procedures XRay, CTs & MRIs ECG Interpretation: Normal axis. Normal intervals. Borderline QT prolongation. No ST segment elevation. No acute T wave abnormalities. Inferior Q waves present. When compared to prior dated 03/29/17 pt is no longer tachycardic. Time: 10:27 Interpreted by: ED physician Normal ECG Interpretation: Normal rate (89), Normal sinus rhythm X-Ray Chest Interpretation Chest Xray Interpretation: IMPRESSION: Increased pulmonary vascualrity consistent with edema. Dictated by: Christiana Cole M.D. on 04/15/2017 at 10:39 View: Portable, 1 view Interpretation / Wet Read by: Interpret - Radiologist CT Head Interpretation IMPRESSION: No CT evidence of acute intracranial pathology. Dictated by: Willis Durbin M.D. on 04/15/2017 at 12:05 Study: Head CT no contrast Interpretation / Wet Read by: Interpret - Radiologist Brief History Pt is pleasant 56 year old female with a severe pulmonary compromise due to Desquamated Interstitial Pneumonia (DIP), COPD on home O2, pulmonary hypertension, type II diabetes, and severe osteoarthritis, hx of IVDA currently taking Methadone, with recent discharge from [facility] 04/13 for RLE DVT on Xarelto, presenting to the ED due to decreased responsiveness and hypoxia. Patient is roommate called EMS as patient was lethargic and was not waking up this a.m. Per EMS oxygen saturation was 83%. Patient is awake and alert at this time and provided most of this history. She says that she takes methadone however dose is not changed recently. She was also discharged on oxycodone and told to take 1-2 tablets however said that she also took 2 this morning in addition to the methadone. She also takes a benzodiazepine to you be used nightly which she also took this morning. Patient reports problem with oxygen tank since discharged in difficulty operating and sometimes it is not turned on. Denies any chest pain. Denies any current shortness of breath. Per ED note Upon arrival the patient was somnolent, minimally responsive, hypotensive with a blood pressure in the 70s over 40s and unable to provide any history. 2 peripheral IVs were obtained and the patient was placed on supplemental oxygen. Narcan was administered with marked improvement in her blood pressure and level of alertness. Administered 40mg IV lasix, insulin and glucose, and Albuterol. The patient's respiratory rate dramatically improved after administration of Narcan and therefore I opted to not place the patient on BiPAP. Hospital Course Pt is pleasant 56 year old female with a severe pulmonary compromise due to Desquamated Interstitial Pneumonia (DIP), COPD on home O2, pulmonary hypertension, type II diabetes, and severe osteoarthritis, hx of IVDA currently taking Methadone, with recent discharge from [facility] 04/13 for RLE DVT on Xarelto, presenting to the ED due to decreased responsiveness and acute on chronic hypercapnic respiratory failure. AMS- POA, resolved- Likely 2/2 to Narcotic overdose as pt took Methadone, 2 tabs Oxycodone, and Lorazepam this AM before episode. Hypoxia due to issues w/ Oxygen tank likely contributing. Pt presented obtunded. Pt rcvd Narcan 0.4mg IV in ED and was immediatley more alert. - Pt remained awake and alert since since transfer from ED. - gambling monitor, continue pulse ox monitor. - Narcan IV ordered prn for respiratory depression, did not require again. - Decrease dose of oxycodone to 5mg q4h as needed only. Acute on chronic hypercapnic respiratory failure, present on admission. Ongoing. Stable on 3L NC. Likely worsened due to respiratory distress from narcotic overdose. hx of severe pulmonary compromise due to Desquamated Interstitial Pneumonia (DIP), COPD. Normally on Hm 02. -Patient has severe chronic pulmonary congestion, Last Echo was 02/15/17 showing EF 60-65%. -ABG- Ph 7.260, PCO2- 61.8. HCO3-26.8. -CXR shows some pulmonary congestion. - Resumed PO Lasix. - Titrated down oxygen to baseline of 2-3 L w/ goal 88-92%. - Smoking cessation advised. - Given Additional dose of Lasix 40mg IV 04/17, CXR in AM in improved pulm congestion and aeration. Desquamated Interstitial Pneumonia (DIP), chronic, active- Per previous discharge instructions -Follow up planned with Pulmonary as outpatient, Dr. Francisco, week april. -Continue low prednisone taper started on 04/13- 60 mg daily for one week, then on 04/20- 50 mg daily for one week, on 04/27- then 40 mg daily for one week, on - then 30 mg daily for one week, and then 10 mg daily for one week. -Pneumocystis prophylaxis with Bactrim double strength one tablet three times a week as long as she is on the steroids. Dr. Francisco will manage this when sees her for followup. Hyperkalemia- poa, improving. 5.9 on admit.(4.4 since discharge 04/13). improved to 4.7. -unclear etiology. Pt had hyperkalemia during previous admission. Pt is taking PO KCL supplements, will hold. -EKG shows some peaking of T waves -ED, given Lasix 40mg IV, Alb neb x1, Insulin Regular 10U. - discontinued oral potassium supplements. History of polysubstance abuse. Stable. -Previously used heroin, marijuana, cocaine, and methamphetamines currently has not used in over 2 years -Continue Methadone hm regimen. -Avoid excess narcotics. Education provided. Acute kidney failure, present on admission. Resolved. Scr 1.06 on admit (inc from 0.67 on 04/13)-> improved to 0.71. - Unclear etiology may be secondary to metformin (continuing to hold metformin) vs decreased po intake. - Nephrology was following during previous admit, no outpatient [employer] as renal function/K lvl returned to normal. Recent Occlusive right DVT dx 02/2017, present on admission, active. -Likely secondary to decreased mobility secondary to right hip pain. -Continue Xarelto 20 mg daily for 3-4 months. -Has follow up plan in place from previous discharge. Leukocytosis- poa, resolved- afebrile, no evidence of infection. More likely due to chronic steroids. Will monitor for evidence of infection. -Repeat CBC showed resolution. If febrile, obtain cultures, start antibiotics. Non-insulin dependent diabetes type II, present on admission. Stable -Continue insulin for blood sugar control while the patient remains on prednisone -Lantus 10 units qhs. -Continue Insulin sliding scale -Continue to monitor closely Depression/PTSD, present on admission. Ongoing. -Continue fluoxetine, prazosin, propanolol, hydroxyzine, Ativan -Hold Lorazepam. Hypertension, chronic. Slightly labile and elevated. -can resume Lisinopril on discharge. Coronary artery disease, present on admission. Stable. -Continue aspirin and atorvastatin Chronic pain, present on admission. Stable. -Continue methadone and gabapentin, held oxycodone. Nicotine dependence, present on admission. Stable. -Nicotine patch as needed Code- Full Dispo- Will discharge home with follow up plan from previous discharge 04/13. - Discontinued oral potassium supplements. - Decrease dose of oxycodone to 5mg q4h as needed only. Avoid excess oxycodone as will cause respiratory depression. - Continue Xarelto 20 mg daily for 3-4 months, length to be determined by PCP, Dr. Lanza. - Follow up planned with Pulmonary as outpatient, Dr. Francisco, April. - Continue low prednisone taper started on 04/13- 60 mg daily for one week, then on 04/20- 50 mg daily for one week, on 04/27- then 40 mg daily for one week, on - then 30 mg daily for one week, and then 10 mg daily for one week. - Pneumocystis prophylaxis with Bactrim double strength one tablet three times a week as long as she is on the steroids. Dr. Francisco will manage this when sees her for followup Exam Vital Signs (Last) Date Time Temp Pulse Resp B/P Pulse Ox O2 Delivery O2 Flow Rate FiO2 04/17/17 08:01 103 22 93 Nasal Cannula 3.00 04/17/17 06:17 36.2 125/79 Test 04/15/17 10:29 04/15/17 10:43 04/15/17 12:00 04/15/17 13:27 Lactic Acid Level 2.0mmol/L (0.4-2.0) Total Bilirubin 0.4mg/dL (0.0-1.2) Aspartate Amino Transf (AST/SGOT) 19U/L (0-50) Alanine Aminotransferase (ALT/SGPT) 40U/L (0-32) Alkaline Phosphatase 97U/L (25-150) Total Protein 5.9g/dL (6.4-8.4) Albumin 3.2g/dL (3.4-5.0) Ammonia 36ug/dL (18-53) Urine Color Straw (YELLOW) Urine Appearance Hazy (CLEAR,HAZY) Urine pH 6.0 (5.0-8.0) Urine Specific [place] 1.010 (1.003-1.035) Urine Protein Negativemg/dL (NEG,TRACE) Urine Glucose (UA) Negativemg/dL (NEGATIVE) Urine Ketones Negativemg/dL (NEGATIVE) Urine Occult Blood Negative (NEGATIVE) Urine Nitrite Negative (NEGATIVE) Urine Bilirubin Negative (NEGATIVE) Urine Urobilinogen Normalmg/dL (NORMAL) Urine Leukocyte Esterase Negative (NEGATIVE) Urine RBC 0-2/hpf (0-2) Urine WBC 0-5/hpf (0-5) Urine Epithelial Cells Occasional/hpf (NONE-MOD) Urine Crystals None seen (NONE SEEN) Urine Bacteria Few/hpf (NONE-FEW) Urine Hyaline Casts Occasional/lpf (NONE) Urine Granular Casts None seen (NONE SEEN) Urine Waxy Casts None seen (NONE SEEN) Urine Red Blood Cell Casts None seen (NONE SEEN) Urine White Blood Cell Casts None seen (NONE SEEN) Urine Mucus None seen (None Seen) Urine Trichomonas None seen (NONE SEEN) Urine Yeast Few (NONE SEEN) Urinalysis Comment None Urine Culture Reflexed Not indicated Urine Opiates Screen Negative Urine Methadone Screen Positive Urine Barbiturates Screen Negative Urine Amphetamines Screen Negative Urine Benzodiazepines Screen Negative Urine Cocaine Metabolite Screen Negative Urine Cannabinoids Screen Negative Total Creatine Kinase 31U/L (21-215) Test 04/16/17 05:00 04/17/17 07:30 White Blood Count 9.9th/mm3 (3.8-10.1) Red Blood Count 3.82mil/mm3 (3.90-5.20) Hemoglobin 10.7g/dL (12.0-15.6) Hematocrit 33.8% (35.0-46.0) Mean Corpuscular Volume 88.5fL (81-100) Mean Corpuscular Hemoglobin 28.0pg (27.0-35.0) Mean Corpuscular Hemoglobin Concent 31.7% (32.0-37.0) Red Cell Distribution Width 19.3% (12.3-15.4) Platelet Count 251bil/L (150-400) Neutrophils (%) (Auto) 63.2% (40-74) Lymphocytes (%) (Auto) 25.5% (14-46) Monocytes (%) (Auto) 6.5% (4-12) Eosinophils (%) (Auto) 4.1% (0-5) Basophils (%) (Auto) 0.1% (0-3) Sodium Level 139mEq/L (134-144) Potassium Level 4.8mEq/L (3.5-5.2) Chloride Level 97mEq/L (97-108) Carbon Dioxide Level 27mmol/L (18-29) Blood Urea Nitrogen 32mg/dL (6-24) Creatinine 0.67mg/dL (0.57-1.00) Estimat Glomerular Filtration Rate 130mL/min (>59) Glucose Level 134mg/dL (60-99) Calcium Level 9.0mg/dL (8.5-10.1) Discharge Medications Discharge Medications Aspirin Chew (Aspirin Chew) 81 Mg Tablet 81 MG PO DAILY Prescribed by: DANIEL PINA DO Atorvastatin Calcium (Atorvastatin Calcium) 20 Mg Tablet 20 MG PO HS Prescribed by: DANIEL PINA DO Fluoxetine (Fluoxetine) 20 Mg Capsule 40 MG PO QAM (Reported) Furosemide (Furosemide) 40 Mg Tablet 40 MG PO QAM (Reported) Gabapentin (Gabapentin) 300 Mg Capsule 600 MG PO BID (Reported) Gabapentin (Gabapentin) 300 Mg Capsule 300 MG PO MIDDAY (Reported) Insulin Glargine (Lantus U100 Solostar Insulin Pen) 100 Unit/1 Ml Insuln.pen 10 PENINJ SUBQ HS Prescribed by: DARREL JEFFERS DO Lisinopril (Lisinopril) 30 Mg Tablet 30 MG PO DAILY Prescribed by: ZI MARION DO Methadone (Methadone) 10 Mg Tab 70 MG PO DAILY (Reported) Mirtazapine (Mirtazapine) 15 Mg Tablet 15 MG PO HS Prescribed by: FOUZIA SKAGGS MD NPH, Human Insulin Isophane (HUMulin-N U100 Insulin Kwikpen) 100 Unit/1 Ml Insuln.pen 8 PENINJ SUBQ TIDWM Prescribed by: DARREL JEFFERS DO Omeprazole (Omeprazole) 20 Mg Capsule.dr 20 MG PO QAM (Reported) Vtk056/Iron Fumarate/FA/Dss ( 19 Tablet) 1 Each Tablet 1 EACH PO QAM ( Reported) Prednisone (PredniSONE) 10 Mg Tablet 10 MG PO DAILY Prescribed by: DEONTE RIDLEY DO Prednisone (PredniSONE) 20 Mg Tablet 20 MG PO DAILY Prescribed by: DEONTE RIDLEY DO Rivaroxaban (Xarelto) 20 Mg Tablet 20 MG PO DAILY Prescribed by: DARREL JEFFERS DO Sulfamethoxazole/Trimeth 800-160 mg (Bactrim DS 800-160 mg) 1 Each Tablet 1 TABLET PO 3 times per week MWF Prescribed by: DEONTE RIDLEY DO As needed Albuterol Neb Soln (Albuterol Neb Soln) 1.25 Mg/3 Ml Vial.neb 1.25 MG NEB Q2H PRN PRN For Shortness of Breath Prescribed by: FOUZIA SKAGGS MD Albuterol Sulfate (Ventolin HFA Inhaler) 200 Puff/18 Gm Inhaler 1 PUFF INH Q4 PRN PRN For Wheezing Prescribed by: SWATHI BALDERAS DO Fluticasone Propionate (Fluticasone Propionate Nasal) 16 Gm [place].susp 2 SPRAYS NASAL DAILY PRN PRN For Congestion (Reported) Hydroxyzine Pamoate (HydrOXYzine Pamoate) 50 Mg Capsule 50 MG PO QID PRN PRN For Anxiety (Reported) Ipratropium/Albuterol Sulfate (Iprat-Albut 0.5-3(2.5) mg/3 mL Inhalant Soln) 3 Ml Ampul.neb 3 ML NEB Q4H PRN PRN For Wheezing Prescribed by: FOUZIA SKAGGS MD Polyethylene Glycol 3350 (Polyethylene Glycol 3350) 17 Gm Powd.pack 17 GM PO DAILY PRN PRN For Constipation (Reported) Prazosin (Prazosin) 2 Mg Capsule 4 MG PO HS PRN PRN nightmares "NIGHTMARES" Prescribed by: FOUZIA SKAGGS MD Propranolol HCl (Propranolol HCl) 10 Mg Tablet 10 MG PO TID PRN PRN For Anxiety (Reported) Additional med instructions - Discontinued oral potassium supplements. Can continue Lasix. - Stopped oxycodone as will cause respiratory depression. Follow up with your Methadone Clinic to increase dose if pain not well controlled. - Continue Xarelto 20 mg daily for 3-4 months, length to be determined by your PCP, Dr. Lanza. - Continue low prednisone taper started with remained Prednisone 20mg and 10mg tablets prescribed during last discharge. On 04/13- you started 60 mg daily for one week, then on 04/20- take 50 mg daily for one week, on 04/27- then take 40 mg daily for one week, on 05/04- then take 30 mg daily for one week, and then take 10 mg daily for one week. - Continue with Bactrim double strength one tablet three times a week on Mon/Wed /Fri as long as on the steroids. Dr. Francisco will manage this when sees her for followup Followup Plan Disposition: Home Discharge Diet: Heart Healthy, Diabetic Patient Instructions - Follow up planned with Pulmonary as outpatient, Dr. Francisco, April. Follow-up Provider: Martha Lanza Follow-up with PCP in: 1 week Time spent Greater than 30 minutes was spent in preparation of discharge with greater than 50% of that time dedicated to patient counseling and coordination of care copies to: Martha Lanza Navdeep MD Apr 17, 2017 08:48 Follow-up with PCP in: 1 week Time spent Greater than 30 minutes was spent in preparation of discharge with greater than 50% of that time dedicated to patient counseling and coordination of care copies to: Martha Lanza Navdeep MD Apr 17, 2017 08:48
--- NOTE | 2017-04-17 08:54 | DRSVH ---
PROCEDURE: X-RAY CHEST ONE VIEW, PORTABLE ([id number]) INDICATIONS: sob, pulm congestion TECHNIQUE: One view of the chest was acquired. COMPARISON: [facility], CR, XR CHEST 1VW (PORTABLE), 04/15/2017, 10:16. FINDINGS: Surgical changes and devices: None. Lungs and pleura: Diffuse interstitial opacities are slightly decreased when compared with the study dated 04/15/17. Focal consolidation is redemonstrated in the lateral aspect of the right midlung. Mediastinum: Mediastinal contours appear normal. Heart size is normal. Bones and chest wall: No suspicious bony lesions. Overlying soft tissues appear unremarkable. IMPRESSION: Findings suggesting diuresis/improved aeration bilaterally. Dictated by: Penelope Granados M.D. on 04/17/2017 at 8:52 Approved by: Penelope Granados M.D. on 04/17/2017 at 8:53
[2017-04-17 10:05] VITALS: BP 123/73; PULSE 109; RESP 20; O2SAT 91
[2017-04-17 10:26] VITALS: PULSE 86
--- NOTE | 2017-04-17 10:48 | NUR ---
DISCHARGE Patient discharged home at 1045, off floor in wheelchair accompanied by CREAM RIPENER. Vitals stable, reports pain in hip as "not quite as bad" at 5/10 but in no apparent distress. IV discontinued intact. All belongings returned (including home meds locked in closet by security). All instructions for diet, activity, medications and follow-up reviewed with patient who reports understanding.
--- NOTE | 2017-04-17 10:55 | NUR ---
Social Work: Readiness for Discharge Data: EMR Reviewed. Patient is on day 2 of hospitalization for AMS per H&P. Patient was discussed in morning rounds. Patient has been deemed medically stable for discharge per MD. Patient was recently discharged on 04/13/17. SW has reviewed previous notes. Prior to admission, patient lived home alone in [facility]. Patient is active with [facility] via [facility]. [facility] CM is Wanda Guevara. Patient uses a wheelchair and is I with ADLs. Patient will discharge home with no needs. Transportation will be provided by family. Assessment: Patient will discharge home with no needs. Patient is active with [facility] via [facility]. Plan: Patient will discharge home today. Transportation will be provided by family. Services will resume with [facility]. Patient has no additional needs at this time. OSKAR Zuluaga
[2017-04-18] MEDS ORDERED: Trimethoprim-Sulfa 160 mg-800 mg Tablet PO SCH (08:30)
== END 2017-04-17 10:45 | disposition home or self-care (01) | DRG 917 ==
LOC: EDBD 09:51 → SED 09:51 → MPC 13:55
PROVIDERS: ADMIT Internal Medicine; ATTEND Internal Medicine
PROC: 4A033R1 Measurement of Arterial Saturation, Peripheral, Percutaneous Approach (ICD-10-PCS; principal; 2017-04-15)
DX: T40.3X4A Poisoning by methadone, undetermined, initial encounter (principal); J96.22 Acute and chronic respiratory failure with hypercapnia; G93.41 Metabolic encephalopathy; N17.9 Acute kidney failure, unspecified; J84.117 Desquamative interstitial pneumonia; F11.20 Opioid dependence, uncomplicated; T40.2X4A Poisoning by other opioids, undetermined, initial encounter; T42.4X4A Poisoning by benzodiazepines, undetermined, initial encounter; E87.5 Hyperkalemia; F32.9 Major depressive disorder, single episode, unspecified; I10 Essential (primary) hypertension; I25.10 Atherosclerotic heart disease of native coronary artery without angina pectoris; G89.29 Other chronic pain; F17.210 Nicotine dependence, cigarettes, uncomplicated; J44.9 Chronic obstructive pulmonary disease, unspecified; Z79.4 Long term (current) use of insulin

== ENCOUNTER 2017-04-25 20:55 | Inpatient (IN) | payer OTHER, MEDICAID ==
[~2017-04-25] VITALS: Ht 162.6 cm; Wt 83.7 kg
[~2017-04-25 20:55] MED LIST changes: -LANC1COM MC; -LORA-303 PO; -LORA0.5T PO; -NICO1PAT5 TRANSDERM; -OXYC1TAB24 PO; -POTA10TA12 PO; -WALK1EAC55 MC; -[UNRECOGNIZED DRUG - CODE] MC
[2017-04-25 21:12] VITALS: BP 102/55; PULSE 102; RESP 14; O2SAT 92
--- NOTE | 2017-04-25 21:31 | ED.REPORT ---
HPI-Altered Mental Status Date of Service Apr 25, 2017 ED Provider: Carlos Rivera MD A 56 year old female with an extensive medical history including anxiety, COPD, diabetes, hepatitis C, interstitial lung disease and sepsis is brought to the ED via EMS due to altered mental status. She describes this as feeling "tired and groggy." The pt has been unusually fatigued for the last three days, in addition to experiencing lower extremity edema, mild chest pain, mild abdominal pain and black stools for 3-4 days. The pt took two Lorazepam two days ago, which she believes could be causing her symptoms. She has been taking her medications normally since. The pt also reports falling out of her wheelchair and losing consciousness prior to coming to the ED, and has been feeling "fuzzy " following this incident. She was admitted on 04/15/2017 for altered mental status. The pt is a poor historian. Nursing Notes Stated Complaint: ANXIETY Chief Complaint: General Complaint Nursing Notes Reviewed: Yes Allergies: Coded Allergies: iodine (Verified Allergy, Unknown, 04/26/17) Egg Yolk (Verified Adverse Reaction, Intermediate, Nausea,Vomiting, ) Scheduled Aspirin Chew (Aspirin Chew) 81 Mg Tablet 81 MG PO DAILY Atorvastatin Calcium (Atorvastatin Calcium) 20 Mg Tablet 20 MG PO HS Fluoxetine (Fluoxetine) 20 Mg Capsule 40 MG PO QAM Furosemide (Furosemide) 40 Mg Tablet 40 MG PO QAM Gabapentin (Gabapentin) 300 Mg Capsule 600 MG PO BID Gabapentin (Gabapentin) 300 Mg Capsule 300 MG PO MIDDAY Insulin Glargine (Lantus U100 Solostar Insulin Pen) 100 Unit/1 Ml Insuln.pen 10 PENINJ SUBQ HS Lisinopril (Lisinopril) 30 Mg Tablet 30 MG PO DAILY Methadone (Methadone) 10 Mg Tab 70 MG PO DAILY Mirtazapine (Mirtazapine) 15 Mg Tablet 15 MG PO HS NPH, Human Insulin Isophane (HUMulin-N U100 Insulin Kwikpen) 100 Unit/1 Ml Insuln.pen 8 PENINJ SUBQ TIDWM Omeprazole (Omeprazole) 20 Mg Capsule.dr 20 MG PO QAM Ibc536/Iron Fumarate/FA/Dss ( 19 Tablet) 1 Each Tablet 1 EACH PO QAM Prednisone (PredniSONE) 10 Mg Tablet 10 MG PO DAILY Prednisone (PredniSONE) 20 Mg Tablet 20 MG PO DAILY Rivaroxaban (Xarelto) 20 Mg Tablet 20 MG PO DAILY Sulfamethoxazole/Trimeth 800-160 mg (Bactrim DS 800-160 mg) 1 Each Tablet 1 TABLET PO 3 times per week MWF Scheduled PRN Albuterol Neb Soln (Albuterol Neb Soln) 1.25 Mg/3 Ml Vial.neb 1.25 MG NEB Q2H PRN PRN For Shortness of Breath Albuterol Sulfate (Ventolin HFA Inhaler) 200 Puff/18 Gm Inhaler 1 PUFF INH Q4 PRN PRN For Wheezing Fluticasone Propionate (Fluticasone Propionate Nasal) 16 Gm [place].susp 2 SPRAYS NASAL DAILY PRN PRN For Congestion Hydroxyzine Pamoate (HydrOXYzine Pamoate) 50 Mg Capsule 50 MG PO QID PRN PRN For Anxiety Ipratropium/Albuterol Sulfate (Iprat-Albut 0.5-3(2.5) mg/3 mL Inhalant Soln) 3 Ml Ampul.neb 3 ML NEB Q4H PRN PRN For Wheezing Polyethylene Glycol 3350 (Polyethylene Glycol 3350) 17 Gm Powd.pack 17 GM PO DAILY PRN PRN For Constipation Prazosin (Prazosin) 2 Mg Capsule 4 MG PO HS PRN PRN nightmares "NIGHTMARES" Propranolol HCl (Propranolol HCl) 10 Mg Tablet 10 MG PO TID PRN PRN For Anxiety General Time Seen by MD: 21:30 Chief Complaint Disoriented, Other (Altered mental status) Hx Obtained From: Patient, EMS Arrived By: Ambulance Sudden in Onset?: No Symptom Duration: Since onset Recent Healthcare: Recent doctor visit, Recent hospitalization Similar Sx Previous: Yes Past Medical History Past Medical History 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 Ambulatory Status Walker Review of Systems Review of Systems Note: lower extremity edema "feeling fuzzy" black stool Constitutional: Reports: Fatigue Respiratory: Denies: Non-productive cough, Shortness of breath Cardiovascular: Reports: Chest pain GI: Reports: Abdominal pain, Denies: Nausea, Vomiting Skin: Denies Rash Neurologic: Reports: Change LOC Complete sys rev & neg: except as marked. Physical Exam Initial Vital Signs Vital Signs (First) Date Time Temp Pulse Resp B/P Pulse Ox O2 Delivery O2 Flow Rate FiO2 04/25/17 21:12 36.9 102 14 102/55 92 Nasal Cannula 3 Initial VS: Reviewed General/Constitutional: Awake, Alert Appearance / Presentation: Positive: Obese drowsy but able to be roused Head / Eyes: Atraumatic, Normocephalic, PERRL, EOMI Neck: Atraumatic, Supple, Full range of motion Respiratory / Chest: Atraumatic, Breath sounds = bilat, No respiratory distress dry crackles Cardiovascular: Heart rate NL, Regular rhythm, Heart sounds NL Neurologic: Oriented X3, Speech NL, No motor deficits, No sensory deficits ENT: Atraumatic, Airway patent, Mucous membranes moist Abdomen: Atraumatic, Soft mild diffuse tenderness Back: Atraumatic, Full range of motion Skin: Color NL, No rash, Warm, Dry Psychiatric: Affect NL, Mood NL Upper Extremity / MS: Atraumatic, Full range of motion Lower Extremity / Pelvis / MS: Full range of motion, Neurologic intact, Vascular intact 1+ edema bilaterally lower extremities heavily scarred from IM injections Rectum / Perineum: Atraumatic, No mass guaiac positive black material Interpretation & Diagnostics Lab Results Interpretation Result Diagram: 04/26/17 0530 04/26/17 0530 Test 04/25/17 21:46 04/25/17 22:32 Nucleated Red Blood Cells 2/100 WBC (0-24) Hematology Comments Rbc Magnesium Level 1.9mg/dL (1.6-2.6) Lactic Acid Level 1.0mmol/L (0.4-2.0) Ammonia 38ug/dL (18-53) Salicylates Level < 3.0ug/mL (30-250) Alcohols < 10mg/dL (0-10) Lab Results Interpretation: ABG: ph 7.361/pCO2 44/pO2 92.5/cHCO3- 24.4/cBase -0.6 ECG Interpretation ECG Interpretation: normal sinus rhythm with a rate of 98 biatrial enlargement LVH Time: 22:04 Interpreted by: ED physician X-Ray Chest Interpretation Chest Xray Interpretation: IMPRESSION: Diffuse interstitial prominence. Differential considerations include pulmonary edema, ARDS, or pneumonitis. Dictated by: Penelope Granados M.D. on 04/25/2017 at 22:17 Approved by: Penelope Granados M.D. 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 No acute intracranial abnormality. Interpretation / Wet Read by: Interpret - Radiologist Re-Eval/Medical Decision Med Decision/Clinical Course 56-year-old female presents with decreased mental status and fatigue. She proves to have new onset of azotemia, and a declining hemoglobin, with heme positive black stools documented on rectal today. She is admitted now for evaluation of her presumptive upper GI bleeding. She does seem somnolent and likely is moderately overdosed on one of her many sedative medicines. She has a long history of narcotic dependency and abuse, but is not currently prescribed any narcotics. Transported in stable condition for evaluation as above. Source of Hx: Old records Re-Evaluation/Progress : Time of Eval: 00:16 Patient Status: Condition improved Re-Evaluation/Progress Note: Pt rechecked, who is comfortable. The diagnosis and plan for admission are discussed. The pt understands and agrees with the plan. All questions are addressed at this time. Consultation : Referral / Consult Name: Cesar Zhong MD Consulted With: Hospitalist Call Returned at: 00:24 Insulation Mechanic: Agrees with eval, Agrees with plan, Accepts admit Note: Spoke with Dr. Zhong, hospitalist, regarding pt's case. Dr. Zhong agrees with the evaluation and agrees to admit the pt. Counseled Regarding: Diagnosis, Lab results, Need for admission Patient Discharge & Departure Impression: Primary Impression: Upper GI bleed Additional Impressions: Altered mental status Altered mental status type: unspecified Qualified Code: R41.82 - Altered mental status, unspecified Acute kidney injury Anemia Anemia type: unspecified type Qualified Code: D64.9 - Anemia, unspecified COPD (chronic obstructive pulmonary disease) Disposition: ADMITTED TO HOSPITAL Discharge Condition All VS Reviewed: Yes Condition: Stable Referrals: Martha Lanza (PCP) Scribe Attestation Portions of this note were transcribed by Rafiq Bautista. I, Dr. Rivera personally performed the history, physical exam and medical decision-making; I reviewed and confirmed the accuracy of the information in the transcribed note. copies to: Martha Lanza Christopher W MD Apr 25, 2017 21:31 RAFIQ BAUTISTA Apr 25, 2017 21:39 Alkaline Phosphatase 119U/L (25-150) Total Protein 7.0g/dL (6.4-8.4) Albumin 3.5g/dL (3.4-5.0) Lactic Acid Level 1.0mmol/L (0.4-2.0) Ammonia 38ug/dL (18-53) Salicylates Level < 3.0ug/mL (30-250) Alcohols < 10mg/dL (0-10) Lab Results Interpretation: ABG: ph 7.361/pCO2 44/pO2 92.5/cHCO3- 24.4/cBase -0.6 ECG Interpretation ECG Interpretation: normal sinus rhythm with a rate of 98 biatrial enlargement LVH Time: 22:04 Interpreted by: ED physician X-Ray Chest Interpretation Chest Xray Interpretation: IMPRESSION: Diffuse interstitial prominence. Differential considerations include pulmonary edema, ARDS, or pneumonitis. Dictated by: Penelope Granados M.D. on 04/25/2017 at 22:17 Approved by: Penelope Granados M.D. 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 No acute intracranial abnormality. Interpretation / Wet Read by: Interpret - Radiologist Re-Eval/Medical Decision Source of Hx: Old records Re-Evaluation/Progress : Time of Eval: 00:16 Patient Status: Condition improved Re-Evaluation/Progress Note: Pt rechecked, who is comfortable. The diagnosis and plan for admission are discussed. The pt understands and agrees with the plan. All questions are addressed at this time. Consultation : Referral / Consult Name: Cesar Zhong MD Consulted With: Hospitalist Call Returned at: 00:24 Insulation Mechanic: Agrees with eval, Agrees with plan, Accepts admit Note: Spoke with Dr. Zhong, hospitalist, regarding pt's case. Dr. Zhong agrees with the evaluation and agrees to admit the pt. Counseled Regarding: Diagnosis, Lab results, Need for admission Patient Discharge & Departure Impression: Primary Impression: Upper GI bleed Additional Impressions: Altered mental status Altered mental status type: unspecified Qualified Code: R41.82 - Altered mental status, unspecified Acute kidney injury Anemia Anemia type: unspecified type Qualified Code: D64.9 - Anemia, unspecified Disposition: ADMITTED TO HOSPITAL Discharge Condition All VS Reviewed: Yes Condition: Stable Referrals: Martha Lanza (PCP) Scribe Attestation Portions of this note were transcribed by Rafiq Bautista. I, Dr. Rivera personally performed the history, physical exam and medical decision-making; I reviewed and confirmed the accuracy of the information in the transcribed note. copies to: Martha Lanza Christopher W MD Apr 25, 2017 21:31 RAFIQ BAUTISTA Apr 25, 2017 21:39
[2017-04-25 21:50] LABS: BASOPHILS % (AUTO) 0.7 % (0-3); EOSINOPHILS % (AUTO) 10.2 % (0-5); MONOCYTES % (AUTO) 12.5 % (4-12); Mean Corpuscular Hemoglobin 28.1 pg (27.0-35.0); Mean Corpuscular Volume 90.9 fL (81-100); NEUTROPHILS % (AUTO) 51.1 % (40-74); Platelet Count 273 bil/L (150-400)
--- NOTE | 2017-04-25 22:08 | ABG ---
DateTimeAnalyzed 22:01:00 -_ pH ____7.361 - 7.350 7.450 pCO2 ___44.1__ -mmHg 35.0 45.0 pO2 ___92.5__ -mmHg 69.0 116 HCO3- ___24.4__ -mmol/L 22.0 26.0 ABE ___-0.6__ -mmol/L -2.0 2.0 tHb ___11.8__ -g/dL 12.0 18.0 O2Hb ___92.6__ -% COHb ____2.7__ -% 0.0 1.5 MetHb ____1.0__ -% 0.4 1.5 sO2 ___96.2__ -% FIO2 ___40.0__ -% Drawn By MM - Date/Time Notified____ 22:08:00 -_ Spontaneous_RR ___20.0__ -b/min Liter_Flow ____5.0__ -L/min Oxygen Device 1 __CANNULA - Notified Whom DR CERVANTES - B 753 -mmHg tO2 ___15.5__ -Vol% Dudley test _Positive -
[2017-04-25 22:15] LABS: Magnesium 1.9 mg/dL (1.6-2.6)
--- NOTE | 2017-04-25 22:20 | DRSVH ---
PROCEDURE: X-RAY CHEST ONE VIEW, PORTABLE ([id number]) INDICATIONS: shortness of breath, interstitial lung disease, altered mental status TECHNIQUE: One view of the chest was acquired. COMPARISON: [facility], CT, CT CHEST WO CON, 04/03/2017, 9:06. [facility], C R, XR CHEST 1VW (PORTABLE), 04/17/2017, 4:57. FINDINGS: Surgical changes and devices: None. Lungs and pleura: Lung volumes are low. There is diffuse interstitial prominence. No focal airspace o pacities. No pleural effusion or pneumothorax. Mediastinum: Mediastinal contours appear normal. Heart size is enlarged. Bones and chest wall: No suspicious bony lesions. Overlying soft tissues appear unremarkable. IMPRESSION: Diffuse interstitial prominence. Differential considerations include pulmonary edema, MELLY S, or pneumonitis. Dictated by: Penelope Granados M.D. on 04/25/2017 at 22:17 Approved by: Penelope Granados M.D. on 04/25/2017 at 22:19
[2017-04-26] VITALS (12 sets, daily range): BP systolic 95–110; BP diastolic 51–70; PULSE 78–97; RESP 14–18; O2SAT 93–97
[2017-04-26] MEDS ORDERED: Pantoprazole 4 mg/mL 10 mL Inj IVPUSH ONE (00:30)
[2017-04-26] MEDS ORDERED: 0.9% Sodium Chloride 1,000 ML IV ONE (00:30)
[2017-04-26] MEDS ORDERED: Ondansetron 2 mg/mL 2 mL Inj IVPUSH PRN (00:40)
[2017-04-26] MEDS ORDERED: Polyethylene Glycol (PEG) 17 Gm Powder PO PRN (00:40)
[2017-04-26] MEDS ORDERED: Alum-Mag Hydrox-Simeth 30 mL Suspension PO PRN (00:40)
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
[2017-04-26] MEDS ORDERED: 0.9% Sodium Chloride 1,000 ML IV SCH (02:10)
[2017-04-26] MEDS ORDERED: Glucose 40% Oral Gel 15 Gm Tube PO PRN (02:10)
[2017-04-26] MEDS ORDERED: Dextrose 10% 250 ML IV PRN (02:15)
[2017-04-26] MEDS ORDERED: Albuterol HFA 60 Puff 8 Gm Inhaler INHALATION PRN (02:15)
[2017-04-26] MEDS ORDERED: Fluticasone 0.05% 15 Spray/2 Gm 16 Gm Nasal Spray NASAL PRN (02:15)
[2017-04-26] MEDS: Pantoprazole Inj 80 MG in 0.9% Sodium Chloride 80 ML IV SCH ×2 (02:25→12:30)
--- NOTE | 2017-04-26 03:12 | NUR ---
ADMIT NOTE Pt arrived to [facility] Room 3015 approx 0130. Pt able to partially scoot self from ER stretcher to bed, pt assisted mostly by staff to bed. Pt does not tolerate activity well d/t Right hip pain. Pt transported on 3L, pt states she uses 2L at home. When awake, pt intermittently holds breath, and oxygen saturations low to mid 80s. When pt calmer, and asleep, oxygen saturations low to mid 90s. VS obtained. Pt placed on remote telemetry, ekg monitor tech notified. IVF and protonix gtt administered. Pt intermittently falls asleep during admit. Continue to monitor. Call light in reach. Bed alarm on. Intentional rounding. Addendum: 04/26/17 at 0615 by JAZMÍN PARKER RN Pt did not allow for belongings to be inventoried or searched. Pt agreed to have belongings locked in room closet.
--- NOTE | 2017-04-26 03:19 | NUR ---
MED REC NOT COMPLETED Pt states she is unable to confirm all home medications and dosages at this time. Pts pharmacy to be contacted in am.
[2017-04-26 05:57] LABS: EOSINOPHILS % (AUTO) 13.2 % (0-5); MONOCYTES % (AUTO) 12.8 % (4-12); Mean Corpuscular Hemoglobin 28.5 pg (27.0-35.0); Mean Corpuscular Volume 91.1 fL (81-100); NEUTROPHILS % (AUTO) 39.7 % (40-74); Platelet Count 195 bil/L (150-400)
--- NOTE | 2017-04-26 07:27 | DRSVH ---
PROCEDURE: CT BRAIN WITHOUT CONTRAST ([id number]) INDICATIONS: altered ms, fell out of wheelchair TECHNIQUE: Noncontrast 4.5 mm thick angled axial sections acquired from the foramen magnum to the vertex, with c oronal reformats. COMPARISON: [facility], CT, CT BRAIN WO CON, 07/03/2015, 9:30. [facility], CT, CT BRAIN WO CON, 04/15/2017, 11:18. FINDINGS: Image quality: Good CSF spaces: Basal cisterns are patent. No extra-axial fluid collections. Ventricles are normal in size and shape. Brain: No midline shift. No intracranial masses or hemorrhage. Byrne-white matter interface is norm al. Skull and face: Calvarium and visualized facial bones are intact, without suspicious lesions. Sinuses: Visualized sinuses and mastoids are clear. IMPRESSION: No acute intracranial abnormality. Encephalomalacia from old ischemic infarct in the left posterior parietal lobe. Dictated by: Jens Jarrell M.D. on 04/26/2017 at 7:22 Approved by: Jens Jarrell M.D. on 04/26/2017 at 7:26
[2017-04-26] MEDS: Insulin LISPRO 300 Unit/3 mL Inj SUBQ SCH ×4 (07:53→22:00)
[2017-04-26] MEDS: predniSONE 10 MG, predniSONE 20 MG PO SCH ×2 (07:57)
[2017-04-26] MEDS ORDERED: _PredniSONE 10 mg Tablet PO SCH (08:30)
[2017-04-26] MEDS ORDERED: predniSONE 20 mg Tablet PO SCH (08:30)
--- NOTE | 2017-04-26 09:20 | NUR ---
Social Work Note: Initial Assessment Data: See initial assessment. Pt is a 56 year old female admitted on 04/23/17 for AVERY per H&P. Pt has [place] [employer]Disabled and [facility] Medicaid. . Pt's PCP is RAMONA Lowry. SW met with pt at bedside, SW role explained. Pt is a readmission discharging home no needs at last admission. Pt lives in [place] alone in a ground floor apartment where she remains independent with basic ADLs. Pt uses a w/c at baseline and has home O2 through [employer]- 2 liters at base. Pt states her friend Valorie who lives next door helps pt with basic needs. Pt is current with the [facility]. Pt has no HH history, but has been to [facility] in the past. Pt does not have VA insurance or LTC insurance. Pt states that DPOA/ advanced directive has been completed, encouraged a copy to be brought in.. SW provided pt with with Discharge Planning Checklist and encouraged her to call with any questions. Pt is eligible for [facility], but does not currently have Caregiver. Pt's CM is Wanda Guevara, updated clinicals faxed. No concerned noted at this time from MD rip/mould operator regarding pt's capacity for self care. Pt's family to provide transport home at discharge. SW will continue to follow. Assessment:Pt who is independent at baseline. Plan: Pt to discharge home when medically stable via POV. SW to follow for needs. OSKAR Garcia Addendum: 04/26/17 at 0927 by CHRISS ZUNIGA Amended: Links added.
[2017-04-26] MEDS: 0.9% Sodium Chloride 1,000 ML IV SCH ×3 (10:55→23:11)
[2017-04-26 12:41] LABS: APPEARANCE,URINE SLIGHTLY CLOUDY (CLEAR,HAZY); COLOR,URINE YELLOW (YELLOW); PH,URINE 5.5 (5.0-8.0)
[2017-04-26 12:42] LABS: OCCULT BLOOD,URINE NEGATIVE (NEGATIVE); UROBILINOGEN,URINE NORMAL (NORMAL)
--- NOTE | 2017-04-26 12:55 | NUR ---
Retention Reporting uncomfortable and unable to urinate after multiple trys. PVR showing 736 after voiding 300mls dark javier urine. Provider notifed and order placed to straight cath x1. Straight cath performed with castile soap d/t allergy to iodine and returned 600mls. Reporting pressure relieved at this time. Addendum: 04/26/17 at 1934 by GARRET MENDENHALL RN Second PVR showing approx 200 after voiding approx 300
[2017-04-26] MEDS: Insulin GLARgine 100 Unit/mL Syringe SUBQ SCH (21:13)
[2017-04-27] VITALS (7 sets, daily range): BP systolic 115–174; BP diastolic 55–92; PULSE 80–101; RESP 16–20; O2SAT 93–98
[2017-04-27 05:39] LABS: Mean Corpuscular Volume 93.4 fL (81-100)
--- NOTE | 2017-04-27 05:45 | NUR ---
Shift note Uneventful night though still confused at times with STML able to move ind in bed needs assist to bsc
[2017-04-27 06:16] LABS: INR 0.97 ratio
[2017-04-27] MEDS: Insulin LISPRO 300 Unit/3 mL Inj SUBQ SCH ×4 (07:58→22:00)
[2017-04-27] MEDS: Pantoprazole 40 mg ER24 Tablet PO SCH ×2 (09:41→17:01)
[2017-04-27] MEDS: predniSONE 10 MG, predniSONE 20 MG PO SCH ×2 (09:41)
--- NOTE | 2017-04-27 11:22 | PCM.PNMED ---
Subjective Date of Service Apr 27, 2017 Subjective Pt notes her mentation has significantly improved since coming inter hospital. Pain is her major complaint this morning, in addition to anxiety. She notes hip pain is most severe, perhaps worsened by hospital bed. She is supposed to be seeing orthopedist out-patient to discuss replacement but has not yet followed up. Sleep last night was also troubled, in part due pain but also something she has trouble with. Exam Vital Signs Vital Sign - Last Date Time Temp Pulse Resp B/P Pulse Ox O2 Delivery O2 Flow Rate FiO2 04/27/17 10:29 96 04/27/17 10:14 Supplement Oxygen 04/27/17 09:42 36.5 18 129/76 94 2.00 Intake and Output 04/26/17 04/26/17 04/27/17 Cumulative From/Thru 15:00 23:00 07:00 04/25/17 21:12 - 04/27/17 06:31 Intake Total 1895 ml 1418 ml 4584 ml Output Total 900 ml 600 ml 1500 ml Balance 995 ml 818 ml 3084 ml Intake Oral 670 ml 400 ml 1070 ml IV Total 1225 ml 1018 ml 3514 ml Output Urine Total 900 ml 600 ml 1500 ml # Bowel Movements 0 0 General: Alert, Oriented X3, Cooperative, Mild Distress Mouth: Mucous Membr Moist/[place] Cardiovascular: Regular Rate/Rhythm Extremities: No cyanosis/clubbing/edma bilat Skin: Other (lesions noted on face and arms, small ulercation, possible traumatic/neurotic type picking lesions based on appearence. ) Neurological: Grossly Neurologically Intact IVs and Medications Medications Reviewed: Medications were reviewed in detail Lab and Diagnostics Result Diagram: 04/27/17 0520 04/27/17 0520 X-Rays, CTs and MRIs Brain CT 04/25/2017 IMPRESSION: Diffuse interstitial prominence. Differential considerations include pulmonary edema, ARDS, or pneumonitis. Dictated by: Penelope Granados M.D. on 04/25/2017 at 22:17 Approved by: Penelope Granados M.D. 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 No acute intracranial abnormality. [facility] read 12-lead ECG ECG Interpretation: normal sinus rhythm with a rate of 98 biatrial enlargement LVH Time: 22:04 Interpreted by: ED Physician Assessment & Plan Rebeca Casarez is a 56-year-old female with extensive medical history including COPD, interstitial lung disease, depression, anxiety, and diabetes mellitus type II insulin using who presented to the ED via EMS due to altered mental status, feeling weak and fatigued. In the ED she was found to have melena and her H/H has fallen from 13 to 9 in approximately 2 weeks since her last admission. Upper GI bleed, present on admission. Acute. Ongoing. - H/H fell from 13 - 9 over 2 weeks; 3 day history of ongoing melena - Protonix continued though drip now DC'd. - Trend H/H in AM, still downward trending though may be dilutional - GI consult considered now ordered. Must consider active ulcer prior to restarting anticoagulation therapy. Acute kidney injury, present on admission. Acute. Ongoing. - Likely prerenal with dehydration and questionable med usage, as she had a significant Nephrology work up in late February - Creatinine at last discharged was 0.6, is now 2.88 - Hold metformin, lisinopril - Avoid nephrotoxic medications - NS at 100ml/hr x1L; will reassess with morning CMP - Consider Nephro consult if her Cr does not trend toward normal Acuet AMS: - May be multifactorial - Given previous mitra of methaphatime use, new picking type ulcerative lesions of face and forearms, Utox now ordered, results pending. Diabetes mellitus type II insulin using, present on admission. Chronic. - Continue Glargine 10 units at night - Low dose correctional ordered for now - Hold metformin due to AVERY Hypertension, present on admission. Chronic. - Hold Lisinopril 30mg daily - Hold Furosemide 40mg daily Hyperlipidemia, present on admission. Chronic. - Continue atorvastatin 20 mg at night COPD, present on admission. Chronic. - Continue prednisone 30mg daily; she was on a taper from 60mg, day team to evaluate dosage - Continue DuoNeb and albuterol inhalers as needed GERD, present on admission. Chronic. - Hold omeprazole 20mg twice daily Chronic pain, present on admission. Chronic. - Continue gabapentin 600 mg twice daily, 300 mg at noon - Continue methadone 70 mg daily, [place] now RX'd for breakthrough given refractory symptoms. History of DVT, present on admission. Chronic. - Hold Xarelto 20mg daily due concern for GI bleed - Patient will need to be anticoagulated once GI bleed is solved Depression, present on admission. Chronic - Continue mirtazapine 15 mg at night - Continue fluoxetine 40 mg daily Anxiety, present on admission. Chronic. - Continue Prazosin 4mg nightly as needed - Continue hydroxyzine 50mg QID as needed - Continue propranolol 10mg TID as needed Tobacco Use Disorder, present on admission. Chronic. - Nicotine patch as needed - Cessation counseled; declined PRN Medications - Acetaminophen as needed for mild pain/fever/headache - Bowel regimen as needed - Antiemetic as needed Patient status: Patient is admitted under inpatient status with expected length of stay greater than 2 midnights due to severity of presenting symptoms, risk of adverse event, and complexity of treatment plan. Pain Evaluation: Adequate Pain Control GI Prophylaxis: Proton Pump Inhibitor VTE Mechanical Devices: Intermittant Pneumatic CD Resuscitation Status: CPR: Attempt Resuscitation Time spent 35 minutes Yuan Conrad DO Apr 27, 2017 11:22
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
[2017-04-27] MEDS ORDERED: PEG/Electrolytes 4,000 mL Solution PO ONE (16:00)
--- NOTE | 2017-04-27 19:51 | NUR ---
Patient Concerns: Patient asking why she is on insulin as she is not diabetic. States that when she was discharged to home from last visit she was given "all of these prescriptions, I got them filled but didn't take any of them because I didn't know what to do." Asked "how can I all of a sudden be diabetic?" Further investigation of previous hospitalizations revealed that she had been on oral hypoglycemics and was discontinued due to renal functions. Reviewed this information with patient. Printed Care Notes on Hemoglobin A1C, How To Check Blood Sugar, and Type II Diabetes in Adults. Attempted to review information, however patient states she does not have glasses and cannot see the papers. Did demonstrate how to check BG, patient obtained dinner time BG. MD notified of patients concerns and asked for inclusion special educator consult.
[2017-04-27] MEDS: hydrOXYzine Pamoate 25 mg Capsule PO PRN (20:53)
[2017-04-27] MEDS: Insulin GLARgine 100 Unit/mL Syringe SUBQ SCH (21:52)
[2017-04-28] VITALS (12 sets, daily range): BP systolic 115–169; BP diastolic 57–97; PULSE 75–104; RESP 12–22; O2SAT 90–96
[2017-04-28] MEDS ORDERED: PEG/Electrolytes 4,000 mL Solution PO ONE (04:00)
--- NOTE | 2017-04-28 06:18 | NUR ---
NOC PT has been very appropriate with this RN, but a bit abrasive with other staff. B/P has been hypertensive tonight, but did come down after prn vistaril given. PT was agreeable to take this after some persuasion. PT does continue to c/o R hip pain but made no request for pain meds and kept kpad applied to it. GI came to the floor around 2200 last alaina and told this RN to have pt drink only 12 more oz of current bottle of golytely and then the rest in am at 0400 because pt was drinking it too slowly and it would not work at that pace. PT drank the rest of it this am. CUrrently stool is watery, but not clear. PT is adamantly refusing to drink any more prep at this time. BG was 107 at HS. Did some diabetic teaching with pt. PT is very willing to learn and to attempt to manage her diabetes, but had no understanding of what to do with the meds that she was sent home with last d/c. This included all of her insulin. This RN ensured her that we would make sure upon d/c that she had a clear understanding of how to test and manage her diabetes. 1/2 NS infusing in L hand. PT slept minimal due to bowel prep. Plan for NPO after 0800.
[2017-04-28 06:25] LABS: BASOPHILS % (AUTO) 0.2 % (0-3); EOSINOPHILS % (AUTO) 3.4 % (0-5); MONOCYTES % (AUTO) 10.7 % (4-12); Mean Corpuscular Hemoglobin 28.5 pg (27.0-35.0); Mean Corpuscular Volume 92.1 fL (81-100); NEUTROPHILS % (AUTO) 61.1 % (40-74); Platelet Count 237 bil/L (150-400)
--- NOTE | 2017-04-28 06:37 | NUR ---
Bowel prep Stool still not clear. Watery and watson. Has one glass left to drink at bedside which she agreeable to drink, but is refusing any more golytely.
[2017-04-28] MEDS: Insulin LISPRO 300 Unit/3 mL Inj SUBQ SCH ×4 (07:39→21:13)
[2017-04-28] MEDS: Pantoprazole 40 mg ER24 Tablet PO SCH ×2 (07:44→17:20)
[2017-04-28] MEDS: hydrOXYzine Pamoate 25 mg Capsule PO PRN ×2 (07:44→17:20)
[2017-04-28] MEDS: predniSONE 10 MG, predniSONE 20 MG PO SCH ×2 (07:48)
--- NOTE | 2017-04-28 11:46 | PCM.PNMED ---
Subjective Date of Service Apr 28, 2017 Subjective Clinically stable overnight. Pt reports continued improvement in her impaired mentation, denies methamphetamine use in spite of urine results and physical findings suggesting the contrary. Pt reports picking her skin to be a bad habit. No dark/tarry stools overnight. Now on clear liquid diet in anticipation of endoscopy later today. No other acute complaints. Denies sweats/chills. No nausea. No palpitations/chest pain. Exam Vital Signs Vital Sign - Last Date Time Temp Pulse Resp B/P Pulse Ox O2 Delivery O2 Flow Rate FiO2 04/28/17 07:53 91 20 91 Nasal Cannula 3.50 04/28/17 04:07 36.4 158/89 Intake and Output 04/27/17 04/27/17 04/28/17 Cumulative From/Thru 15:00 23:00 07:00 04/25/17 21:12 - 04/28/17 06:38 Intake Total 2249 ml 2480 ml 9313 ml Output Total 1950 ml 1000 ml 4450 ml Balance 299 ml 1480 ml 4863 ml Intake Oral 1412 ml 2000 ml 4482 ml IV Total 837 ml 480 ml 4831 ml Output Urine Total 1950 ml 100 ml 3550 ml Stool Total 600 ml 600 ml Urine/Stool Mix 300 ml 300 ml # Voids 3 3 # Bowel Movements 0 5 5 Exam General: Alert, Oriented X3, Cooperative, Mild Distress Mouth: Mucous Membranes Moist/[place] Cardiovascular: Regular Rate/Rhythm Extremities: No cyanosis/clubbing/edema bilat Skin: Lesions noted on face and arms, small ulcerations noted previously, no new, no evidence of infection. Neurological: Grossly Neurologically Intact IVs and Medications Medications Reviewed: Medications were reviewed in detail Lab and Diagnostics Result Diagram: 04/28/17 0602 04/28/17 0602 X-Rays, CTs and MRIs Brain CT 04/25/2017 IMPRESSION: Diffuse interstitial prominence. Differential considerations include pulmonary edema, ARDS, or pneumonitis. Dictated by: Penelope Granados M.D. on 04/25/2017 at 22:17 Approved by: Penelope Granados M.D. 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 No acute intracranial abnormality. [place] read 12-lead ECG ECG Interpretation: normal sinus rhythm with a rate of 98 biatrial enlargement LVH Time: 22:04 Interpreted by: ED Physician Assessment & Plan Rebeca Casarez is a 56-year-old female with extensive medical history including COPD, interstitial lung disease, depression, anxiety, and diabetes mellitus type II insulin using who presented to the ED via EMS due to altered mental status, feeling weak and fatigued. In the ED she was found to have melena and her H/H has fallen from 13 to 9 in approximately 2 weeks since her last admission. Upper GI bleed, present on admission. Acute. Ongoing. - H/H fell from 13 - 9 over 2 weeks; 3 day history of ongoing melena - Protonix continued though drip now DC'd. 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 in AM, still downward trending though may be dilutional - GI planning upper/lower endoscopy later today Acute kidney injury, present on admission. Acute. Ongoing. - Likely prerenal with dehydration and questionable med usage, as she had a significant Nephrology work up in late February - Creatinine at last discharged was 0.6, is now normalized with IV hydration - Holding metformin, lisinopril - Avoid nephrotoxic medications - NS at 75ml/hr currently, likely DC later today following procedure with advancement of diet - Reassess RFTs in AM Acute AMS: Resolved - May be multifactorial - Given previous mitra of methaphatime use, UDS result, and new picking type ulcerative lesions of face and forearms this appears to at least be contributing factor if not sole cause Amphetamine dependence - Pt appears to have limited insight into severity of her condition, resistant to chemical dependence. - May consider social work consult if patient reconsiders. Diabetes mellitus type II insulin using, present on admission. Chronic. - Continue Glargine 10 units at night - Low dose correctional ordered for now - Hold metformin due to AVERY Hypertension, present on admission. Chronic. - Hold Lisinopril 30mg daily - Hold Furosemide 40mg daily Hyperlipidemia, present on admission. Chronic. - Continue atorvastatin 20 mg at night COPD, present on admission. Chronic. - Continue prednisone 30mg daily; she was on a taper from 60mg, day team to evaluate dosage - Continue DuoNeb and albuterol inhalers as needed GERD, present on admission. Chronic. - Hold omeprazole 20mg twice daily Chronic pain, present on admission. Chronic. - Continue gabapentin 600 mg twice daily, 300 mg at noon - Continue methadone 70 mg daily, [place] now RX'd for breakthrough given refractory symptoms. History of DVT, present on admission. Chronic. - Hold Xarelto 20mg daily due concern for GI bleed - Patient will need to be anticoagulated once GI bleed is solved Depression, present on admission. Chronic - Continue mirtazapine 15 mg at night - Continue fluoxetine 40 mg daily Anxiety, present on admission. Chronic. - Continue Prazosin 4mg nightly as needed - Continue hydroxyzine 50mg QID as needed - Continue propranolol 10mg TID as needed Tobacco Use Disorder, present on admission. Chronic. - Nicotine patch as needed - Cessation counseled; declined Disposition: Likely discharge in AM pending studies, advancement of diet, and stable renal function. PRN Medications - Acetaminophen as needed for mild pain/fever/headache - Bowel regimen as needed - Antiemetic as needed Patient status: Patient is admitted under inpatient status with expected length of stay greater than 2 midnights due to severity of presenting symptoms, risk of adverse event, and complexity of treatment plan. Pain Evaluation: Adequate Pain Control GI Prophylaxis: Proton Pump Inhibitor VTE Mechanical Devices: Intermittant Pneumatic CD Resuscitation Status: CPR: Attempt Resuscitation Time spent 30 minutes Yuan Conrad DO Apr 28, 2017 11:46
[2017-04-28] MEDS ORDERED: Lactated Ringer's 1,000 ML IV ONE (13:08)
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
--- NOTE | 2017-04-28 15:23 | NUR ---
Endoscopy Bowel prep finished, stool watson in color and almost clear. Escorted off floor via endo personnel via rcotati with O2 in place and SL. Addendum: 04/28/17 at 1853 by GARRET MENDENHALL RN Return from Endo with O2 in place, advancing diet as tolerated.
[2017-04-28] MEDS ORDERED: fentaNYL-PF 50 mCg/mL 2 mL Inj ONE (15:40)
[2017-04-28] MEDS ORDERED: Propofol 10 mg/mL 20 mL Inj ONE (15:40)
--- NOTE | 2017-04-28 16:53 | PCM.ANEP1 ---
Post Anesthesia PACU Phase 1 Assessment Vital Signs Vital Signs Date Time Temp Pulse Resp B/P Pulse Ox O2 Delivery O2 Flow Rate FiO2 04/28/17 16:38 97 14 115/57 92 Nasal Cannula 2 04/28/17 15:19 36.1 79 18 150/76 93 Nasal Cannula 4 04/28/17 13:49 37.0 75 20 142/81 94 Nasal Cannula 4.00 Anesthetic Administered: MAC Level of Alertness: Sleepy, easy to arouse Pain: No Nausea or Vomiting: No CV Function & Hydration Stable: Yes Airway Device: Oxygen Delivery: Nasal Cannula Lungs: Normal Air Movement PACU Phase 2 Assessment Complications: No Follow up Care: No Patient Instructions Provided: N/A Lennox Mason MD Apr 28, 2017 16:53
--- NOTE | 2017-04-28 18:07 | ENDO ---
[address] [address] ENDOSCOPY PROCEDURE PATIENT: JONO RODNEY : 1960 MR#: [id number] ADMIT: 04/26/2017 JOB ID: [id number] PROCEDURE: Esophagogastroduodenoscopy with biopsies and a colonoscopy with biopsies. INDICATIONS: A 56-year-old female admitted with symptoms of anemia and melena. Both EGD and colonoscopy are therefore pursued. EQUIPMENT: GIF H 180 J and a PCF H 180 AL. SEDATION: Monitored anesthesia as provided by Dr. Lennox Mason. COMPLICATIONS: None identified. BOWEL PREPARATION: Fair at best. PROCEDURE INFORMATION: After the risks and benefits were explained, written and verbal informed consent was obtained. The patient was brought into the endoscopy suite and placed in the left lateral decubitus position. Sedation was achieved as above. The scope was introduced into the mouth through the bite block, and advanced to the second portion of the duodenum. The scope was slowly withdrawn to carefully examine the mucosa for any defects or lesions. Retroflexed views were accomplished in the stomach, the stomach was decompressed, and the scope removed the patient, who tolerated the procedure well. The patient was turned around and digital rectal examination accomplished. No significant pathology appreciated. Mild internal hemorrhoids. The scope was introduced into the rectum and advanced under direct visualization to the cecum as identified by the appendiceal orifice and ileocecal valve. The terminal ileum was briefly accessed. The scope was then slowly withdrawn to carefully examine the mucosa for any defects or lesions. Multiple direct views were made through the dentate line for exclusion of pathology. The colon was decompressed and the scope removed from the patient, who tolerated the procedure well. FINDINGS: 1. Duodenum: No ulcers. No mass lesions. No new or old blood. No sign of any recent hemorrhage. There was, however, well down in the second portion a soft submucosal polypoid structure measuring in the neighborhood of about 8 mm in greatest dimension. Even though this felt like it could possibly be lipoma, it did not look classic for a lipoma, and we therefore took a large deep biopsy from this lesion for histopathologic analysis. 2. Stomach: The patient had a mild to moderate diffuse gastropathy seen throughout. Random biopsies were therefore taken for exclusion of Helicobacter or any other underlying histopathology. That said, no mass lesions. No outlet obstruction. No ulcers. Retroflexed views of the LES were unremarkable. 3. Esophagus: The squamocolumnar junction correlated with the top of the gastric folds. The GEJ was at approximately 41 cm from the incisors. No acute erosive changes. No strictures. No mass lesions. The esophagus was otherwise unremarkable. 4. Terminal ileum: This appeared completely normal. There was a moderate amount of retained brown to beige liquid and semi liquid debris within the ileum. No sign of melena. No sign of red blood. 5. Colon: The patient had evidence of some superficial erosions and ulcers at the rectosigmoid junction along with some scattered erythema. The more distal rectum appeared completely normal, as did much of the sigmoid colon. Then, up in towards the splenic flexure in the descending colon, there were more obvious inflammatory appearing segments and we elected to therefore take a couple of biopsies from the obviously involved mucosa for histopathologic analysis. The transverse colon appeared devoid of any inflammatory features. There was some scattered mild erythema in and around the hepatic flexure, but no overt inflammation. No significant polyps, mass lesions, or other pathology appreciated. Sample was taken of the residual stool debris for PCR. ENDOSCOPIC DIAGNOSES: 1. Mild to moderate gastropathy. 2. Duodenal submucosal lesion, question lipoma? 3. Noncontiguous segmental colitis. IBD is within the differential but overall the appearance suggested ischemic change. 4. Hemorrhoids. 5. Otherwise no sign of any recent or active gastrointestinal hemorrhage. RECOMMENDATIONS: 1. Await histopathology. 2. Advance diet as tolerated. 3. If Helicobacter is found, it will need to be eradicated with standard triple therapy. 4. The patient would be encouraged to maintain adequate outpatient hydration and normal blood pressure, and maintain a regular fiber regimen for soft regular stools. 5. From a GI standpoint, the patient can be discharged home at the discretion of the patient's primary service. 6. Await stool PCR results. [facility]
[2017-04-28] MEDS: Insulin GLARgine 100 Unit/mL Syringe SUBQ SCH (21:12)
[2017-04-28] MEDS: HYDROcodone-APAP 10-325 mg PO PRN (21:12)
[2017-04-29] VITALS (14 sets, daily range): BP systolic 149–175; BP diastolic 77–91; PULSE 88–105; RESP 18–22; O2SAT 82–95
[2017-04-29] MEDS: HYDROcodone-APAP 10-325 mg PO PRN ×3 (04:29→18:06)
--- NOTE | 2017-04-29 05:35 | NUR ---
Nasal MARS screen sent at pm, Stool guaiac sent now. small hard dark brown stool this am. Pt placed contact precaution until rule out MRSA. Addendum: 04/29/17 at 0540 by RUY LAW RN PLEASE DISCARD THIS NOTE DUE TO DOCUMENTED AT WRONG PT!!!!
[2017-04-29 05:54] LABS: BASOPHILS % (AUTO) 0.2 % (0-3); EOSINOPHILS % (AUTO) 4.3 % (0-5); MONOCYTES % (AUTO) 11.5 % (4-12); Mean Corpuscular Hemoglobin 28.3 pg (27.0-35.0); Mean Corpuscular Volume 92.7 fL (81-100); NEUTROPHILS % (AUTO) 60.8 % (40-74); Platelet Count 236 bil/L (150-400)
--- NOTE | 2017-04-29 06:37 | NUR ---
SOB Pt breathing ok at rest, significantly SOB and desat to low high 70s on exertion,slowing back to mid 80s on O2 4L after resting in bed, Pt placed O 2 2L at bedrest initially (Home O2 2l), 4l with activities, SPO2 frequently down to mid 80s and remains longer on O2 4l this morning, therefore increased O 2 to 6l, SPO2, SPO2 88-92%. Rt Sheryl H. notified for NEB tx, RT said "pt always desat" because her lungs "interstitial changes", pt "SPO2 usually 85-95% even on high flow O2 at [facility] per RT, Therefore RT not concerned, pt also declines NEB tx due to cause her "shaking" "weird feeling". [employer] used for monitoring SPO2 and titrating O2. Coarse lung sounds bilaterally, some wheezes. Occasionally nonproductive cough.
[2017-04-29] MEDS: predniSONE 10 MG, predniSONE 20 MG PO SCH ×2 (07:36)
[2017-04-29] MEDS: Insulin LISPRO 300 Unit/3 mL Inj SUBQ SCH ×4 (07:38→21:33)
[2017-04-29] MEDS: Pantoprazole 40 mg ER24 Tablet PO SCH ×2 (07:38→16:38)
[2017-04-29] MEDS: Albuterol-Ipratropium 3 mL Inhalation Solution NEB PRN ×2 (08:11→17:43)
--- NOTE | 2017-04-29 08:13 | PCM.PNMED ---
Subjective Date of Service Apr 29, 2017 Subjective GASTROENTEROLOGY PROGRESS NOTE: Attending Physician: Tonny Vital MD Resident Physician: Cynthia Chaney DO No acute events overnight. Patient reports abdominal discomfort which she attributes to her anxiety. She denies abdominal pain, nausea or vomiting and states that she is tolerating her diet. She has not had a bowel movement yet today. Additionally she reports a mild headache but is otherwise without complaint. She is ambulating in her room with minimal difficulty. She states that her anxiety is related to her fear about missing a methadone dose after discharge. She states that if she is discharged over the weekend the methadone clinic will be closed and she only has one dose left. Exam Vital Signs Vital Sign - Last Date Time Temp Pulse Resp B/P Pulse Ox O2 Delivery O2 Flow Rate FiO2 04/29/17 07:40 88 20 89 Nasal Cannula 3.00 04/29/17 04:41 36.9 149/78 Intake and Output 04/28/17 04/28/17 04/29/17 Cumulative From/Thru 15:00 23:00 07:00 04/25/17 21:12 - 04/29/17 04:41 Intake Total 3926 ml 1240 ml 67860 ml Output Total 1400 ml 800 ml 6650 ml Balance 2526 ml 440 ml 7829 ml Intake Oral 3300 ml 1240 ml 9022 ml IV Total 626 ml 5457 ml Output Urine Total 600 ml 800 ml 4950 ml Stool Total 800 ml 1400 ml Urine/Stool Mix 300 ml # Voids 4 7 # Bowel Movements 1 0 6 Exam General: Chronically ill-appearing, obese female in no acute distress. Lungs: Coarse lung sounds with diffuse crackles, mild inspiratory and expiratory wheezing. Cardiovascular: Regular rate/rhythm. No murmurs Abdomen: Soft, obese, non-distended, nontender. Hypoactive bowel tones. Extremities: Scattered excoriations of upper ext bilaterally at various stages of healing (patient reports self-picking). No edema or cyanosis. Neurological: AOx3, No focal neurologic deficit. Normal speech IVs and Medications Medications Reviewed: Medications were reviewed in detail Lab and Diagnostics Laboratory Tests Test 04/29/17 05:30 White Blood Count 9.8th/mm3 (3.8-10.1) Red Blood Count 3.68mil/mm3 (3.90-5.20) Hemoglobin 10.4g/dL (12.0-15.6) Hematocrit 34.1% (35.0-46.0) Mean Corpuscular Volume 92.7fL (81-100) Mean Corpuscular Hemoglobin 28.3pg (27.0-35.0) Mean Corpuscular Hemoglobin Concent 30.5% (32.0-37.0) Red Cell Distribution Width 22.8% (12.3-15.4) Platelet Count 236bil/L (150-400) Neutrophils (%) (Auto) 60.8% (40-74) Lymphocytes (%) (Auto) 22.6% (14-46) Monocytes (%) (Auto) 11.5% (4-12) Eosinophils (%) (Auto) 4.3% (0-5) Basophils (%) (Auto) 0.2% (0-3) Sodium Level 142mEq/L (134-144) Potassium Level 4.2mEq/L (3.5-5.2) Chloride Level 105mEq/L (97-108) Carbon Dioxide Level 23mmol/L (18-29) Blood Urea Nitrogen 12mg/dL (6-24) Creatinine 0.81mg/dL (0.57-1.00) Estimat Glomerular Filtration Rate 104mL/min (>59) Glucose Level 125mg/dL (60-99) Calcium Level 8.0mg/dL (8.5-10.1) Result Diagram: 04/29/17 0530 04/29/17 0530 X-Rays, CTs and MRIs 04/25/17 - X-RAY CHEST ONE VIEW, PORTABLE IMPRESSION: Diffuse interstitial prominence. Differential considerations include pulmonary edema, ARDS, or pneumonitis. Approved by: Penelope Granados M.D. on 04/25/2017 at 22:19 04/26/17 - CT BRAIN WITHOUT CONTRAST IMPRESSION: -No acute intracranial abnormality. 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 Approved by: Jens Jarrell M.D. on 04/26/2017 at 7:26 . Additional Diagnostics 04/28/17 - EGD & COLONOSCOPY w/BIOPSIES. ENDOSCOPIC DIAGNOSES: 1. Mild to moderate gastropathy. 2. Duodenal submucosal lesion, question lipoma? 3. Noncontiguous segmental colitis. IBD is within the differential but overall the appearance suggested ischemic change. 4. Hemorrhoids. 5. Otherwise no sign of any recent or active gastrointestinal hemorrhage. RECOMMENDATIONS: 1. Await histopathology. 2. Advance diet as tolerated. 3. If Helicobacter is found, it will need to be eradicated with standard triple therapy. 4. The patient would be encouraged to maintain adequate outpatient hydration and normal blood pressure, and maintain a regular fiber regimen for soft regular stools. 5. From a GI standpoint, the patient can be discharged home at the discretion of the patient's primary service. Tonny Vital MD 04/28/17 [id number] Assessment & Plan 56-year-old female with a complex past medical history significant for chronic respiratory failure secondary to COPD and interstitial lung disease, diabetes, stroke, pulmonary hypertension, hepatitis C, DVT, multiple MRSA skin abscesses and former IV drug use. She presented to the ED via EMS with altered mental status, generalized weakness and fatigue. GI consulted for further evaluation of unexplained anemia and melena. Anemia possibly secondary to upper GI bleed. - Endoscopy to rule out GI bleeding prior to restarting anticoagulation. - EGD & COLONOSCOPY 04/28 with no sign of any recent or active gastrointestinal hemorrhage, mild to moderate gastropathy, findings suggestive of ischemic colitis, and hemorrhoids. - Patient is chronically anticoagulated on Xarelto for recent hx of DVT - From a GI standpoint, the patient stable for discharge and without over signs of active bleeding. However, because biopsies were taken during endoscopy recommend observation today prior to resuming Xarelto. Discharge at discretion of primary hospitalist. - Continue PPI - Advance diet as tolerated. - Biopsy results pending, if H.pylori found. Will need to be treated with standard triple therapy. Additional problems managed by primary medicine team: - Acute kidney injury - Acute altered mental status - History of DVT - Diabetes mellitus type II insulin using - Hypertension - Hyperlipidemia - COPD - Chronic pain - Depression - Anxiety - Tobacco Use Disorder - History of CAD - History of polysubstance abuse . Pain Evaluation: Adequate Pain Control GI Prophylaxis: Proton Pump Inhibitor VTE Mechanical Devices: Intermittant Pneumatic CD Resuscitation Status: CPR: Attempt Resuscitation Attending Statement Patient seen and examined. Agree with assessment and plan as described by Dr Chaney. Lab discarded the stool specimen we acquire yesterday without conversing with anyone from endoscopy staff. Apparently, the specimen was not timed. Another specimen is being collected with patient's next bm. I really do not expect this to be positive for anything, but for completeness, it would be appropriate to obtain. Cynthia Chaney DO Apr 29, 2017 08:13 Tonny Vital MD Apr 29, 2017 17:48 - History of CAD - History of polysubstance abuse GI Prophylaxis: Proton Pump Inhibitor VTE Mechanical Devices: Intermittant Pneumatic CD Resuscitation Status: CPR: Attempt Resuscitation Cynthia Chaney DO Apr 29, 2017 08:13
--- NOTE | 2017-04-29 13:43 | PCM.PNMED ---
Subjective Date of Service Apr 29, 2017 Subjective Patient notes she does not feel quite back to her baseline yet. She also has some anxiety regarding getting her methadone dosing when she is discharged to home. Malick saw her today to arrange for nebulizer at home apparently her previous one broke and she has not been using it. Exam Vital Signs Vital Sign - Last Date Time Temp Pulse Resp B/P Pulse Ox O2 Delivery O2 Flow Rate FiO2 04/29/17 12:31 37.0 104 22 175/91 86 Nasal Cannula 4.00 Intake and Output 04/28/17 04/28/17 04/29/17 Cumulative From/Thru 15:00 23:00 07:00 04/25/17 21:12 - 04/29/17 04:41 Intake Total 3926 ml 1240 ml 79384 ml Output Total 1400 ml 800 ml 6650 ml Balance 2526 ml 440 ml 7829 ml Intake Oral 3300 ml 1240 ml 9022 ml IV Total 626 ml 5457 ml Output Urine Total 600 ml 800 ml 4950 ml Stool Total 800 ml 1400 ml Urine/Stool Mix 300 ml # Voids 4 7 # Bowel Movements 1 0 6 Exam Constitutional: Middle-aged female in no acute distress Head: Normocephalic atraumatic Chest: Some scattered crackles Cor: Regular rate and rhythm S1-S2 Abdomen: Soft nontender bowel sounds present Extremities: No pedal edema Psych: Mood and affect are appropriate Neuro: Alert and oriented 3, motor strength is intact bilaterally Lab and Diagnostics Laboratory Tests 72 Hours Test 04/27/17 05:20 04/28/17 06:02 04/29/17 05:30 White Blood Count 6.1th/mm3 (3.8-10.1) 10.5th/mm3 (3.8-10.1) 9.8th/mm3 (3.8-10.1) Red Blood Count 3.46mil/mm3 (3.90-5.20) 4.18mil/mm3 (3.90-5.20) 3.68mil/mm3 (3.90-5.20) Hemoglobin 9.7g/dL (12.0-15.6) 11.9g/dL (12.0-15.6) 10.4g/dL (12.0-15.6) Hematocrit 32.3% (35.0-46.0) 38.5% (35.0-46.0) 34.1% (35.0-46.0) Mean Corpuscular Volume 93.4fL (81-100) 92.1fL (81-100) 92.7fL (81-100) Mean Corpuscular Hemoglobin 28.0pg (27.0-35.0) 28.5pg (27.0-35.0) 28.3pg (27.0-35.0) Mean Corpuscular Hemoglobin Concent 30.0% (32.0-37.0) 30.9% (32.0-37.0) 30.5% (32.0-37.0) Red Cell Distribution Width 23.6% (12.3-15.4) 23.2% (12.3-15.4) 22.8% (12.3-15.4) Platelet Count 204bil/L (150-400) 237bil/L (150-400) 236bil/L (150-400) Prothrombin Time 10.4sec (8.1-12.5) Prothromb Time International Ratio 0.97ratio Activated Partial Thromboplast Time 20.3sec (22.8-33.0) Sodium Level 145mEq/L (134-144) 145mEq/L (134-144) 142mEq/L (134-144) Potassium Level 4.8mEq/L (3.5-5.2) 4.4mEq/L (3.5-5.2) 4.2mEq/L (3.5-5.2) Chloride Level 111mEq/L (97-108) 108mEq/L (97-108) 105mEq/L (97-108) Carbon Dioxide Level 21mmol/L (18-29) 18mmol/L (18-29) 23mmol/L (18-29) Blood Urea Nitrogen 36mg/dL (6-24) 20mg/dL (6-24) 12mg/dL (6-24) Creatinine 1.39mg/dL (0.57-1.00) 0.81mg/dL (0.57-1.00) 0.81mg/dL (0.57-1.00) Estimat Glomerular Filtration Rate 56mL/min (>59) 104mL/min (>59) 104mL/min (>59) Glucose Level 114mg/dL (60-99) 82mg/dL (60-99) 125mg/dL (60-99) Calcium Level 8.3mg/dL (8.5-10.1) 8.5mg/dL (8.5-10.1) 8.0mg/dL (8.5-10.1) Neutrophils (%) (Auto) 61.1% (40-74) 60.8% (40-74) Lymphocytes (%) (Auto) 24.2% (14-46) 22.6% (14-46) Monocytes (%) (Auto) 10.7% (4-12) 11.5% (4-12) Eosinophils (%) (Auto) 3.4% (0-5) 4.3% (0-5) Basophils (%) (Auto) 0.2% (0-3) 0.2% (0-3) Result Diagram: 04/29/1752904/29/1730 X-Rays, CTs and MRIs 04/25/17 - X-RAY CHEST ONE VIEW, PORTABLE IMPRESSION: Diffuse interstitial prominence. Differential considerations include pulmonary edema, ARDS, or pneumonitis. Approved by: Penelope Granados M.D. on 04/25/2017 at 22:19 04/26/17 - CT BRAIN WITHOUT CONTRAST IMPRESSION: -No acute intracranial abnormality. 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 Approved by: Jens Jarrell M.D. on 04/26/2017 at 7:26 . Additional Diagnostics 04/28/17 - EGD & COLONOSCOPY w/BIOPSIES. ENDOSCOPIC DIAGNOSES: 1. Mild to moderate gastropathy. 2. Duodenal submucosal lesion, question lipoma? 3. Noncontiguous segmental colitis. IBD is within the differential but overall the appearance suggested ischemic change. 4. Hemorrhoids. 5. Otherwise no sign of any recent or active gastrointestinal hemorrhage. RECOMMENDATIONS: 1. Await histopathology. 2. Advance diet as tolerated. 3. If Helicobacter is found, it will need to be eradicated with standard triple therapy. 4. The patient would be encouraged to maintain adequate outpatient hydration and normal blood pressure, and maintain a regular fiber regimen for soft regular stools. 5. From a GI standpoint, the patient can be discharged home at the discretion of the patient's primary service. Tonny Vital MD 04/28/17 4751 Assessment & Plan Rebeca Casarez is a 56-year-old female with extensive medical history including COPD, interstitial lung disease, depression, anxiety, and diabetes mellitus type II insulin using who presented to the ED via EMS due to altered mental status, feeling weak and fatigued. In the ED she was found to have melena and her H/H has fallen from 13 to 9 in approximately 2 weeks since her last admission. Upper GI bleed, present on admission. Acute. Ongoing. - H/H fell from 13 - 9 over 2 weeks; 3 day history of ongoing melena - Protonix continued though drip now DC'd. - Trend H/H in AM, still downward trending though may be dilutional -Consider starting as well to back once biopsies from endoscopies have returned Acute kidney injury, present on admission. Acute. Ongoing. 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 Chronic. - Continue Glargine 10 units at night - Low dose correctional ordered for now - Hold metformin due to AVERY Hypertension, present on admission. Chronic. - Hold Lisinopril 30mg daily - Hold Furosemide 40mg daily Hyperlipidemia, present on admission. Chronic. - Continue atorvastatin 20 mg at night COPD, present on admission. Chronic. - Continue prednisone 30mg daily; she was on a taper from 60mg, day team to evaluate dosage - Continue DuoNeb and albuterol inhalers as needed GERD, present on admission. Chronic. - Hold omeprazole 20mg twice daily Chronic pain, present on admission. Chronic. - Continue gabapentin 600 mg twice daily, 300 mg at noon - Continue methadone 70 mg daily, [place] now RX'd for breakthrough given refractory symptoms. History of DVT, present on admission. Chronic. - Hold Xarelto 20mg daily due concern for GI bleed - Patient will need to be anticoagulated once GI bleed is solved Depression, present on admission. Chronic - Continue mirtazapine 15 mg at night - Continue fluoxetine 40 mg daily Anxiety, present on admission. Chronic. - Continue Prazosin 4mg nightly as needed - Continue hydroxyzine 50mg QID as needed - Continue propranolol 10mg TID as needed Tobacco Use Disorder, present on admission. Chronic. - Nicotine patch as needed - Cessation counseled; declined PRN Medications - Acetaminophen as needed for mild pain/fever/headache - Bowel regimen as needed - Antiemetic as needed Patient status: Patient is admitted under inpatient status with expected length of stay greater than 2 midnights due to severity of presenting symptoms, risk of adverse event, and complexity of treatment plan. Pain Evaluation: Adequate Pain Control GI Prophylaxis: Proton Pump Inhibitor VTE Mechanical Devices: Intermittant Pneumatic CD Resuscitation Status: CPR: Attempt Resuscitation GI Prophylaxis: Proton Pump Inhibitor VTE Mechanical Devices: Intermittant Pneumatic CD Resuscitation Status: CPR: Attempt Resuscitation Time spent 30 minutes Veronica Lancaster MD Apr 29, 2017 13:43
--- NOTE | 2017-04-29 15:45 | NUR ---
Oxygen Patient was on 6L of supplemental oxygen via NC. Patient had saturations at 95%. Nurse decreased supplemental oxygen to 4L with saturations at 90% at rest. Patient spO2 decreases with exertion (ambulation, speaking, and sitting) down to 84-89%, which patient states is her baseline. Patient has been receiving neb treatments as well. Patient on continuous pulse ox; will continue to monitor.
[2017-04-29] MEDS: hydrOXYzine Pamoate 25 mg Capsule PO PRN (21:31)
[2017-04-29] MEDS: Insulin GLARgine 100 Unit/mL Syringe SUBQ SCH (21:32)
[2017-04-30] VITALS (11 sets, daily range): BP systolic 146–167; BP diastolic 82–118; PULSE 74–107; RESP 20–24; O2SAT 79–96
[2017-04-30] MEDS: HYDROcodone-APAP 10-325 mg PO PRN ×4 (00:01→20:06)
[2017-04-30] MEDS: Albuterol-Ipratropium 3 mL Inhalation Solution NEB PRN ×2 (04:24→08:05)
[2017-04-30] MEDS ORDERED: Furosemide 10 mg/mL 4 mL Inj IVPUSH ONE ×2 (05:05→14:30)
--- NOTE | 2017-04-30 07:16 | NUR ---
SOB Very SOB, labored breathing and desat to 70s when up to BSC around 0440. Increased O2 to 6L from 4l per oxymask, SPO2 remains mid 80s (baseline SPO2 85% on O2 2l at home per pt),generalized coarse lung sounds,few crackles at posterior LLs, some wheezes, 1+ pitting edema at LEs.Vital checked, BP167/118,afebrile. Pt c/o headache 02/05, transient chest pain. HX DVT,suspected PE? Tylenol given for headache,RT called and NEB administered, Charge nurse Judy Ferrer informed and assessed pt, Dr Trevin hernández at 0458, Lasix 40mg IV ordered and administered,no other order given such as CXR or D-dimmer ect. SOB slowly improved and SPO2 89-93% on O2 6l after above management.
[2017-04-30] MEDS: Insulin LISPRO 300 Unit/3 mL Inj SUBQ SCH ×4 (07:42→21:14)
[2017-04-30] MEDS: predniSONE 10 MG, predniSONE 20 MG PO SCH ×2 (07:43)
[2017-04-30] MEDS: Pantoprazole 40 mg ER24 Tablet PO SCH ×2 (07:43→16:20)
--- NOTE | 2017-04-30 11:47 | PCM.PNMED ---
Subjective Date of Service Apr 30, 2017 Subjective Patient notes she has more of a cough and feels like she is more short of breath even with just walking within her room. Denies any chest pain. Exam Vital Signs Vital Sign - Last Date Time Temp Pulse Resp B/P Pulse Ox O2 Delivery O2 Flow Rate FiO2 04/30/17 09:29 37.2 107 22 151/82 85 Nasal Cannula 6.00 Intake and Output 04/29/17 04/29/17 04/30/17 Cumulative From/Thru 15:00 23:00 07:00 04/25/17 21:12 - 04/30/17 05:50 Intake Total 10 ml 700 ml 200 ml 61720 ml Output Total 625 ml 1500 ml 8775 ml Balance 10 ml 75 ml -1300 ml 6614 ml Intake Oral 700 ml 200 ml 9922 ml IV Total 10 ml 5467 ml Output Urine Total 625 ml 1500 ml 7075 ml Stool Total 1400 ml Urine/Stool Mix 300 ml # Voids 7 # Bowel Movements 0 6 Exam Constitutional: Middle-aged female no acute distress Head: Normocephalic and atraumatic Chest reveals rhonchi particularly at her bases posteriorly Cor: Regular rate and rhythm S1-S2 without murmur Abdomen: Soft nontender bowel sounds present Extremities: No pedal edema Neuro: Alert and oriented 3, motor strength is intact bilaterally Psych: Mood and affect are appropriate Lab and Diagnostics Laboratory Tests 72 Hours Test 04/28/17 06:02 04/29/17 05:30 04/30/17 10:10 White Blood Count 10.5th/mm3 (3.8-10.1) 9.8th/mm3 (3.8-10.1) Red Blood Count 4.18mil/mm3 (3.90-5.20) 3.68mil/mm3 (3.90-5.20) Hemoglobin 11.9g/dL (12.0-15.6) 10.4g/dL (12.0-15.6) 11.0g/dL (12.0-15.6) Hematocrit 38.5% (35.0-46.0) 34.1% (35.0-46.0) 36.0% (35.0-46.0) Mean Corpuscular Volume 92.1fL (81-100) 92.7fL (81-100) Mean Corpuscular Hemoglobin 28.5pg (27.0-35.0) 28.3pg (27.0-35.0) Mean Corpuscular Hemoglobin Concent 30.9% (32.0-37.0) 30.5% (32.0-37.0) Red Cell Distribution Width 23.2% (12.3-15.4) 22.8% (12.3-15.4) Platelet Count 237bil/L (150-400) 236bil/L (150-400) Neutrophils (%) (Auto) 61.1% (40-74) 60.8% (40-74) Lymphocytes (%) (Auto) 24.2% (14-46) 22.6% (14-46) Monocytes (%) (Auto) 10.7% (4-12) 11.5% (4-12) Eosinophils (%) (Auto) 3.4% (0-5) 4.3% (0-5) Basophils (%) (Auto) 0.2% (0-3) 0.2% (0-3) Sodium Level 145mEq/L (134-144) 142mEq/L (134-144) Potassium Level 4.4mEq/L (3.5-5.2) 4.2mEq/L (3.5-5.2) Chloride Level 108mEq/L (97-108) 105mEq/L (97-108) Carbon Dioxide Level 18mmol/L (18-29) 23mmol/L (18-29) Blood Urea Nitrogen 20mg/dL (6-24) 12mg/dL (6-24) Creatinine 0.81mg/dL (0.57-1.00) 0.81mg/dL (0.57-1.00) Estimat Glomerular Filtration Rate 104mL/min (>59) 104mL/min (>59) Glucose Level 82mg/dL (60-99) 125mg/dL (60-99) Calcium Level 8.5mg/dL (8.5-10.1) 8.0mg/dL (8.5-10.1) Result Diagram: 04/30/17 1010 04/29/17 0530 X-Rays, CTs and MRIs 04/25/17 - X-RAY CHEST ONE VIEW, PORTABLE IMPRESSION: Diffuse interstitial prominence. Differential considerations include pulmonary edema, ARDS, or pneumonitis. Approved by: Penelope Granados M.D. on 04/25/2017 at 22:19 04/26/17 - CT BRAIN WITHOUT CONTRAST IMPRESSION: -No acute intracranial abnormality. 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 Approved by: Jens Jarrell M.D. on 04/26/2017 at 7:26 . Additional Diagnostics 04/28/17 - EGD & COLONOSCOPY w/BIOPSIES. ENDOSCOPIC DIAGNOSES: 1. Mild to moderate gastropathy. 2. Duodenal submucosal lesion, question lipoma? 3. Noncontiguous segmental colitis. IBD is within the differential but overall the appearance suggested ischemic change. 4. Hemorrhoids. 5. Otherwise no sign of any recent or active gastrointestinal hemorrhage. RECOMMENDATIONS: 1. Await histopathology. 2. Advance diet as tolerated. 3. If Helicobacter is found, it will need to be eradicated with standard triple therapy. 4. The patient would be encouraged to maintain adequate outpatient hydration and normal blood pressure, and maintain a regular fiber regimen for soft regular stools. 5. From a GI standpoint, the patient can be discharged home at the discretion of the patient's primary service. Tonny Vital MD 04/28/17 1633 Assessment & Plan Rebeca Casarez is a 56-year-old female with extensive medical history including COPD, interstitial lung disease, depression, anxiety, and diabetes mellitus type II insulin using who presented to the ED via EMS due to altered mental status, feeling weak and fatigued. In the ED she was found to have melena and her H/H has fallen from 13 to 9 in approximately 2 weeks since her last admission. Upper GI bleed, present on admission. Acute. Ongoing. - H/H fell from 13 - 9 over 2 weeks; 3 day history of ongoing melena - Protonix continued though drip now DC'd. - Trend H/H in AM, still downward trending though may be dilutional -Hematocrit is stable today so we will go ahead and restart Xarelto -Biopsies are pending at the time of this dictation Acute kidney injury, present on admission. Acute. Ongoing. - Likely prerenal with dehydration and questionable med usage, as she had a significant Nephrology work up in late February - Creatinine at last discharged was 0.6, is now 2.88 - Hold metformin, lisinopril - Avoid nephrotoxic medications - NS at 100ml/hr x1L; will reassess with morning CMP -Markedly improved Acute on chronic respiratory failure, with hypoxia -She is requiring more oxygen recently and symptomatically feels a little bit more dyspneic with more of a cough -Do schedule duo nebs every 4 hours while awake and albuterol nebs when necessary -Continue with prednisone 30 mg by mouth daily -Check chest x-ray -Respiratory working on getting Trilogy approved for her home use -We also have arranged through [facility] for her to get a new nebulizer with nebulizer medications ordered also -DC IV fluids Acute AMS, resolved: - May be multifactorial - Given previous mitra of methaphatime use, new picking type ulcerative lesions of face and forearms, Utox is positive for methamphetamine and methadone Diabetes mellitus type II insulin using, present on admission. Chronic. - Continue Glargine 10 units at night - Low dose correctional ordered for now - Hold metformin due to AVERY Hypertension, present on admission. Chronic. - Hold Lisinopril 30mg daily - Hold Furosemide 40mg daily Hyperlipidemia, present on admission. Chronic. - Continue atorvastatin 20 mg at night COPD, present on admission. Chronic. - Continue prednisone 30mg daily; she was on a taper from 60mg, day team to evaluate dosage - Continue DuoNeb and albuterol inhalers as needed GERD, present on admission. Chronic. - Hold omeprazole 20mg twice daily Chronic pain, present on admission. Chronic. - Continue gabapentin 600 mg twice daily, 300 mg at noon - Continue methadone 70 mg daily, [place] now RX'd for breakthrough given refractory symptoms. History of DVT, present on admission. Chronic. - Hold Xarelto 20mg daily due concern for GI bleed - Patient will need to be anticoagulated once GI bleed is solved Depression, present on admission. Chronic - Continue mirtazapine 15 mg at night - Continue fluoxetine 40 mg daily Anxiety, present on admission. Chronic. - Continue Prazosin 4mg nightly as needed - Continue hydroxyzine 50mg QID as needed - Continue propranolol 10mg TID as needed Tobacco Use Disorder, present on admission. Chronic. - Nicotine patch as needed - Cessation counseled; declined PRN Medications - Acetaminophen as needed for mild pain/fever/headache - Bowel regimen as needed - Antiemetic as needed Patient status: Patient is admitted under inpatient status with expected length of stay greater than 2 midnights due to severity of presenting symptoms, risk of adverse event, and complexity of treatment plan. Pain Evaluation: Adequate Pain Control GI Prophylaxis: Proton Pump Inhibitor VTE Mechanical Devices: Intermittant Pneumatic CD Resuscitation Status: CPR: Attempt Resuscitation GI Prophylaxis: Proton Pump Inhibitor VTE Mechanical Devices: Intermittant Pneumatic CD Resuscitation Status: CPR: Attempt Resuscitation Time spent 30 minutes Veronica Lancaster MD Apr 30, 2017 11:47
--- NOTE | 2017-04-30 13:47 | DRSVH ---
PROCEDURE: X-RAY CHEST, TWO VIEWS ([id number]) INDICATIONS: increasing hypoxia TECHNIQUE: 2 views of the chest were acquired. COMPARISON: [facility], CR, XR CHEST 1VW (PORTABLE), 04/25/2017, 21:48. FINDINGS: Surgical changes and devices: None. Lungs and pleura: Diffuse increased bilateral pulmonary opacities. Mediastinum: Mediastinal contours are normal. Heart size is normal. Bones and chest wall: No suspicious bony abnormalities. Soft tissues appear unremarkable. IMPRESSION: Diffuse increased pulmonary opacities are present. Appearance is most suggestive of diffu se edema. Small areas of underlying airspace disease such as pneumonia and/or atelectasis Dictated by: Christiana Cole M.D. on 04/30/2017 at 13:45 Approved by: Christiana Cole M.D. on 04/30/2017 at 13:46
[2017-04-30] MEDS: Albuterol-Ipratropium 3 mL Inhalation Solution NEB SCH ×3 (13:56→22:15)
--- NOTE | 2017-04-30 14:16 | PROG NOTE ---
[address] [address] PROGRESS NOTE PATIENT: JONO RODNEY : 1960 MR#: [id number] ADMIT: 04/26/2017 JOB ID: [id number] DATE: SUBJECTIVE: Still no bowel movements. She is struggling with her pulmonary status today and is just at the moment going down for x-ray. OBJECTIVE: Temperature 37.2, pulse 107, breathing 22, blood pressure 151/82. Patient was recorded as being at 85% on 6 L. these vitals are from 9:29 this morning. The patient was able to get from bed to the wheelchair on her own but did so slow way so as to not induce any increase shortness of breath. I discussed briefly with the patient's nurse and light technician and they are actively addressing the situation with Dr. Lancaster. LABORATORIES: Hemoglobin 11.0. White count yesterday was normal. BUN 12, creatinine 0.81. ASSESSMENT AND RECOMMENDATIONS: This is a 56-year-old female with presentation demonstrating anemia, low-grade GI bleeding, and fatigue/weakness. Endoscopy revealed the presence of gastropathy and a noncontiguous segmental colitis. I suspect the possibility of an underlying ischemia. She is presently not having any further or ongoing signs of bleeding. Stool study was requested and is yet to be accomplished as yet today. I feel that the likelihood of this being infectious is quite low. We are still awaiting histology. Comment: This is a no charge visit. Today is the Sabbath. Please do not submit a physician charge for this particular note. EMMA
[2017-04-30] MEDS: LORazepam 1 mg Tablet PO PRN ×2 (16:20→21:09)
--- NOTE | 2017-04-30 17:40 | NUR ---
Oxygen Patient was on 6L supplemental oxygen with saturations of 95-96% upon arrival of shift this morning. Nurse decreased supplemental oxygen to 4L via oxi-mask with saturations at 92% will at rest. Patient continues to become SOB and de-saturate with slight exertion down to low 80's while on oxi-mask and upper 70's while on NC, due to being a mouth breather. Nurse encouraged the use of oxi-mask and patient was compliant with use for most of day. Patient states this is her baseline. Will continue to monitor.
[2017-04-30] MEDS: Insulin GLARgine 100 Unit/mL Syringe SUBQ SCH (21:23)
[2017-05-01] VITALS (17 sets, daily range): BP systolic 119–151; BP diastolic 68–88; PULSE 88–110; RESP 18–28; O2SAT 79–94
[2017-05-01] MEDS: Albuterol 1.25 mg/3 mL Inhalation Solution NEB PRN ×2 (00:12→09:18)
[2017-05-01] MEDS: HYDROcodone-APAP 10-325 mg PO PRN ×4 (02:05→21:42)
[2017-05-01] MEDS: Albuterol-Ipratropium 3 mL Inhalation Solution NEB SCH ×6 (02:15→22:15)
--- NOTE | 2017-05-01 05:50 | NUR ---
Oxygen/hip pain Patient's O2 decreased to 69% on 4L NC. Pt strongly encouraged to wear oxymask due to mouth breathing;however, pt was not very cooperative in the beginning with recommendation stating, "No, I don't want to wear a mask." After some educating on risk and benefits the patient agreed to wear the oxymask at 5L, which increased O2 to 89% her baseline. Pt also c/o hip pain 8/10 and given [place] 10/325mg and appeared asleep at reassessment. Pt continues on cont pulse ox. care continues.
[2017-05-01] MEDS: Pantoprazole 40 mg ER24 Tablet PO SCH ×2 (07:58→17:28)
[2017-05-01] MEDS: Insulin LISPRO 300 Unit/3 mL Inj SUBQ SCH ×4 (07:59→21:41)
[2017-05-01] MEDS: LORazepam 1 mg Tablet PO PRN ×3 (08:06→21:42)
[2017-05-01] MEDS: predniSONE 10 MG, predniSONE 20 MG PO SCH ×2 (08:19)
[2017-05-01] MEDS ORDERED: Furosemide 10 mg/mL 4 mL Inj IVPUSH ONE (08:25)
[2017-05-01] MEDS ORDERED: Furosemide 10 mg/mL 4 mL Inj IVPUSH SCH (08:30)
--- NOTE | 2017-05-01 08:45 | ABG ---
DateTimeAnalyzed 08:35:00 -_ pH ____7.453 - 7.350 7.450 pCO2 ___46.8__ -mmHg 35.0 45.0 pO2 ___31.8__ -mmHg 69.0 116 HCO3- ___32.2__ -mmol/L 22.0 26.0 ABE ____7.5__ -mmol/L -2.0 2.0 tHb ___13.0__ -g/dL 12.0 18.0 O2Hb ___60.2__ -% COHb ____2.1__ -% 0.0 1.5 MetHb ____0.0__ -% 0.4 1.5 sO2 ___61.3__ -% FIO2 ___45.0__ -% Drawn By lw - Date/Time Notified____ 08:44:00 -_ Liter_Flow ____7.0__ -L/min Oxygen Device 1 NC - Notified By lw - Notified Whom ___Dr. Kubisty - B 758 -mmHg tO2 ___10.9__ -Vol% Dudley test _Positive -
[2017-05-01] MEDS ORDERED: MethylprednisoLONE Sodium Succinate 62.5 mg/mL 2 mL Inj IVPUSH ONE (09:05)
--- NOTE | 2017-05-01 09:08 | DRSVH ---
PROCEDURE: X-RAY CHEST ONE VIEW, PORTABLE ([id number]) INDICATIONS: hypoxia TECHNIQUE: One view of the chest was acquired. COMPARISON: [facility], CR, XR CHEST 1VW (PORTABLE), 04/17/2017, 4:57. [facility], CR, XR CHEST 2VW, 04/30/2017, 13:36. [facility], CR, XR CHEST 1VW (PORTABLE), 04/25, 21:48. FINDINGS: Surgical changes and devices: None. Lungs and pleura: No pleural effusions or pneumothorax. There are persistent diffuse bilateral airs pace opacities which have progressively increased compared to the prior studies. There also more loc alized areas of indistinct densities peripherally in the right mid and upper lung zones and left retr ocardiac region. Mediastinum: Mediastinal contours appear unchanged. Heart size is at the upper limits of normal. Bones and chest wall: No suspicious bony lesions. Overlying soft tissues appear unremarkable. IMPRESSION: 1. Progressive increase in diffuse bilateral opacities likely representing pulmonary edema. 2. More localized confluent densities are suggestive of consolidation/pneumonia or atelectasis. Dictated by: Chente Corrigan M.D. on 05/01/2017 at 9:05 Approved by: Chente Corrigan M.D. on 05/01/2017 at 9:07
--- NOTE | 2017-05-01 09:32 | NUR ---
TO [facility] Patient report called to Michelle Garcia RN on [facility]. Patient belongings packed, medications given to nurse, patient placed on high flow oxygen by RT in [facility]. Patient mother notified per patient request that patient was moving to room 2006 on the second floor for decreased oxygenation.
--- NOTE | 2017-05-01 10:40 | PCM.PNMED ---
Subjective Date of Service May 01, 2017 Subjective Patient became increasingly dyspneic and hypoxic overnight. He also had been refusing some of her albuterol treatments overnight. She denies any chest pain. Exam Vital Signs Vital Sign - Last Date Time Temp Pulse Resp B/P Pulse Ox O2 Delivery O2 Flow Rate FiO2 05/01/17 09:43 98 05/01/17 09:30 18 88 Nasal Cannula 40 60 05/01/17 04:41 37.0 151/88 Intake and Output 04/30/17 04/30/17 05/01/17 Cumulative From/Thru 15:00 23:00 07:00 04/25/17 21:12 - 05/01/17 06:21 Intake Total 1539 ml 236 ml 22301 ml Output Total 2030 ml 1650 ml 12927 ml Balance -491 ml -1414 ml 4709 ml Intake Oral 1527 ml 236 ml 16725 ml IV Total 12 ml 5479 ml Output Urine Total 2030 ml 1500 ml 60016 ml Stool Total 1400 ml Urine/Stool Mix 150 ml 450 ml # Voids 7 # Bowel Movements 0 6 Exam Constitutional: Dyspneic middle-aged female tripoding Head: Normocephalic atraumatic Chest: Significant crackles in left base approximately long term up and crackles on the right anterior lung field, no wheezes noted Cor: Regular rate and rhythm S1-S2 Abdomen: Soft nontender bowel sounds present Extremities: No pedal edema Neuro: Alert and oriented 3, motor strength intact bilaterally Psych: Patient is anxious Skin: No rashes IVs and Medications Medications Reviewed: Medications were reviewed in detail Lab and Diagnostics Laboratory Tests 72 Hours Test 04/29/17 05:30 04/30/17 10:10 White Blood Count 9.8th/mm3 (3.8-10.1) Red Blood Count 3.68mil/mm3 (3.90-5.20) Hemoglobin 10.4g/dL (12.0-15.6) 11.0g/dL (12.0-15.6) Hematocrit 34.1% (35.0-46.0) 36.0% (35.0-46.0) Mean Corpuscular Volume 92.7fL (81-100) Mean Corpuscular Hemoglobin 28.3pg (27.0-35.0) Mean Corpuscular Hemoglobin Concent 30.5% (32.0-37.0) Red Cell Distribution Width 22.8% (12.3-15.4) Platelet Count 236bil/L (150-400) Neutrophils (%) (Auto) 60.8% (40-74) Lymphocytes (%) (Auto) 22.6% (14-46) Monocytes (%) (Auto) 11.5% (4-12) Eosinophils (%) (Auto) 4.3% (0-5) Basophils (%) (Auto) 0.2% (0-3) Sodium Level 142mEq/L (134-144) Potassium Level 4.2mEq/L (3.5-5.2) Chloride Level 105mEq/L (97-108) Carbon Dioxide Level 23mmol/L (18-29) Blood Urea Nitrogen 12mg/dL (6-24) Creatinine 0.81mg/dL (0.57-1.00) Estimat Glomerular Filtration Rate 104mL/min (>59) Glucose Level 125mg/dL (60-99) Calcium Level 8.0mg/dL (8.5-10.1) Result Diagram: 04/30/17 1010 04/29/17 0530 X-Rays, CTs and MRIs 04/25/17 - X-RAY CHEST ONE VIEW, PORTABLE IMPRESSION: Diffuse interstitial prominence. Differential considerations include pulmonary edema, ARDS, or pneumonitis. Approved by: Penelope Granados M.D. on 04/25/2017 at 22:19 04/26/17 - CT BRAIN WITHOUT CONTRAST IMPRESSION: -No acute intracranial abnormality. 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 Approved by: Jens Jarrell M.D. on 04/26/2017 at 7:26 . 12-lead ECG Pending Additional Diagnostics 04/28/17 - EGD & COLONOSCOPY w/BIOPSIES. ENDOSCOPIC DIAGNOSES: 1. Mild to moderate gastropathy. 2. Duodenal submucosal lesion, question lipoma? 3. Noncontiguous segmental colitis. IBD is within the differential but overall the appearance suggested ischemic change. 4. Hemorrhoids. 5. Otherwise no sign of any recent or active gastrointestinal hemorrhage. RECOMMENDATIONS: 1. Await histopathology. 2. Advance diet as tolerated. 3. If Helicobacter is found, it will need to be eradicated with standard triple therapy. 4. The patient would be encouraged to maintain adequate outpatient hydration and normal blood pressure, and maintain a regular fiber regimen for soft regular stools. 5. From a GI standpoint, the patient can be discharged home at the discretion of the patient's primary service. Tonny Vital MD 04/28/17 1633 Assessment & Plan Rebeca Casarez is a 56-year-old female with extensive medical history including COPD, interstitial lung disease, depression, anxiety, and diabetes mellitus type II insulin using who presented to the ED via EMS due to altered mental status, feeling weak and fatigued. In the ED she was found to have melena and her H/H has fallen from 13 to 9 in approximately 2 weeks since her last admission. Upper GI bleed, present on admission. Acute. Ongoing. - H/H fell from 13 - 9 over 2 weeks; 3 day history of ongoing melena - Protonix continued though drip now DC'd. -Patient was transitioned off of IV Protonix drip to Protonix 40 mg by mouth twice a day - Trend H/H in AM, still downward trending though may be dilutional -Hematocrit is stable today so we will go ahead and restart Xarelto -Biopsies are pending at the time of this dictation Acute kidney injury, present on admission. Acute. Ongoing. - Likely prerenal with dehydration and questionable med usage, as she had a significant Nephrology work up in late February - Creatinine at last discharged was 0.6, is now 2.88 - Hold metformin, lisinopril - Avoid nephrotoxic medications - NS at 100ml/hr x1L; will reassess with morning CMP -Markedly improved Acute on chronic respiratory failure, with hypoxia -She is requiring more oxygen recently and symptomatically feels a little bit more dyspneic with more of a cough -Do schedule duo nebs every 4 hours while awake and albuterol nebs when necessary -Continue with prednisone 30 mg by mouth daily -Check chest x-ray -Respiratory working on getting Trilogy approved for her home use -We also have arranged through [facility] for her to get a new nebulizer with nebulizer medications ordered also -DC IV fluids -Patient is increasingly dyspneic and with hypoxia on a.m. of May 01 so will transfer to [facility], telemetry for high flow oxygen therapy -I have ordered stat CBC platelets differential, BMP, serial troponins, and ABG -Stat EKG, stat chest x-ray ordered -We will give dose of IV Lasix 40 mg stat -Also discussed case with Dr. Reed of pulmonary to consult. Acute AMS, resolved: - May be multifactorial - Given previous mitra of methaphatime use, new picking type ulcerative lesions of face and forearms, Utox is positive for methamphetamine and methadone -Resolved Diabetes mellitus type II insulin using, present on admission. Chronic. - Continue Glargine 10 units at night - Low dose correctional ordered for now - Hold metformin due to AVERY Hypertension, present on admission. Chronic. - Hold Lisinopril 30mg daily -Upon admission patient's by mouth Lasix was held but reinstituted on April 30 due to increasing oxygen requirements and possible pulmonary edema seen on 2 view chest x-ray that day Hyperlipidemia, present on admission. Chronic. - Continue atorvastatin 20 mg at night COPD, present on admission. Chronic. - Continue prednisone 30mg daily; she was on a taper from 60mg, day team to evaluate dosage - Continue DuoNeb and albuterol inhalers as needed GERD, present on admission. Chronic. -Currently on Protonix 40 mg by mouth twice a day Chronic pain, present on admission. Chronic. - Continue gabapentin 600 mg twice daily, 300 mg at noon - Continue methadone 70 mg daily, [place] now RX'd for breakthrough given refractory symptoms. History of DVT, present on admission. Chronic. - Hold Xarelto 20mg daily due concern for GI bleed at admit -Patient was reinitiated on Xarelto on April 30 Depression, present on admission. Chronic - Continue mirtazapine 15 mg at night - Continue fluoxetine 40 mg daily Anxiety, present on admission. Chronic. - Continue Prazosin 4mg nightly as needed - Continue hydroxyzine 50mg QID as needed - Continue propranolol 10mg TID as needed Tobacco Use Disorder, present on admission. Chronic. - Nicotine patch as needed - Cessation counseled; declined PRN Medications - Acetaminophen as needed for mild pain/fever/headache - Bowel regimen as needed - Antiemetic as needed Patient status: Patient is admitted under inpatient status with expected length of stay greater than 2 midnights due to severity of presenting symptoms, risk of adverse event, and complexity of treatment plan. Pain Evaluation: Adequate Pain Control GI Prophylaxis: Proton Pump Inhibitor VTE Mechanical Devices: Intermittant Pneumatic CD Resuscitation Status: CPR: Attempt Resuscitation GI Prophylaxis: Proton Pump Inhibitor VTE Mechanical Devices: Intermittant Pneumatic CD Resuscitation Status: CPR: Attempt Resuscitation Time spent 45 minutes Veronica Lancaster MD May 01, 2017 10:40
[2017-05-01 11:38] LABS: BASOPHILS % (AUTO) 0.3 % (0-3); EOSINOPHILS % (AUTO) 5.9 % (0-5); MONOCYTES % (AUTO) 3.9 % (4-12); Mean Corpuscular Hemoglobin 27.8 pg (27.0-35.0); Mean Corpuscular Volume 90.1 fL (81-100); NEUTROPHILS % (AUTO) 79.8 % (40-74); Platelet Count 396 bil/L (150-400)
[2017-05-01] MEDS: Vancomycin Dose per Pharmacist XX SCH (12:10)
[2017-05-01] MEDS ORDERED: Piperacillin-Tazo 3.375 Gm Inj 3.375 GM in Dextrose 5% Minibag Plus 50 ML IV ONE (12:35)
[2017-05-01] MEDS ORDERED: Vancomycin Inj 1,750 MG in 0.9% Sodium Chloride 500 ML IV ONE (12:55)
[2017-05-01] MEDS ORDERED: 0.9% Sodium Chloride 250 ML ONE (13:31)
--- NOTE | 2017-05-01 14:15 | PCM.CONPHA ---
Subjective Date of Service: May 01, 2017 Fatigue Reason for Pharmacy Consult: Vancomycin Dosing Objective Vital Signs Date Time Temp Pulse Resp B/P Pulse Ox O2 Delivery O2 Flow Rate FiO2 05/01/17 11:50 88 20 93 high flow 60 05/01/17 11:48 88 18 93 Nasal Cannula 40 60 05/01/17 09:43 98 05/01/17 09:30 68 18 88 Nasal Cannula 40 60 05/01/17 09:20 37.0 97 20 136/68 92 High Flow 40L 60 05/01/17 08:00 110 24 79 Nasal Cannula 6.00 05/01/17 04:41 37.0 88 20 151/88 82 Nasal Cannula 4.00 05/01/17 00:20 Supplement Oxygen 05/01/17 00:13 108 28 85 Nasal Cannula 6.00 04/30/17 20:10 93 20 85 Nasal Cannula 6.00 04/30/17 19:52 37.0 74 20 163/83 80 Nasal Cannula 4.00 04/30/17 18:41 37.1 83 20 164/88 79 Nasal Cannula 4.00 Intake and Output 04/29/17 04/30/17 05/01/17 00:00 00:00 00:00 Intake Total 6406 ml 1950 ml 1739 ml Output Total 2400 ml 1425 ml 3530 ml Balance 4006 ml 525 ml -1791 ml Weight (Kilograms): 86.000 Height (Feet): 5 Height (Inches): 4.00 Test 04/25/17 21:46 04/25/17 22:32 04/26/17 12:10 04/27/17 05:20 Nucleated Red Blood Cells 2/100 WBC (0-24) Hematology Comments Rbc Magnesium Level 1.9mg/dL (1.6-2.6) Lactic Acid Level 1.0mmol/L (0.4-2.0) Ammonia 38ug/dL (18-53) Salicylates Level < 3.0ug/mL (30-250) Alcohols < 10mg/dL (0-10) Urine Color Yellow (YELLOW) Urine Appearance Slightly cloudy Urine pH 5.5 (5.0-8.0) Urine Specific [facility] 1.025 (1.003-1.035) Urine Protein Negativemg/dL (NEG,TRACE) Urine Glucose (UA) Negativemg/dL (NEGATIVE) Urine Ketones Negativemg/dL (NEGATIVE) Urine Occult Blood Negative (NEGATIVE) Urine Nitrite Negative (NEGATIVE) Urine Bilirubin Negative (NEGATIVE) Urine Urobilinogen Normalmg/dL (NORMAL) Urine Leukocyte Esterase Negative (NEGATIVE) Urine RBC 0-2/hpf (0-2) Urine WBC 0-5/hpf (0-5) Urine Epithelial Cells Occasional/hpf (NONE-MOD) Urine Crystals Uric acid crystals (NONE Urine Bacteria Few/hpf (NONE-FEW) Urine Hyaline Casts 5/20/lpf (NONE) Urine Granular Casts None seen (NONE SEEN) Urine Waxy Casts None seen (NONE SEEN) Urine Red Blood Cell Casts None seen (NONE SEEN) Urine White Blood Cell Casts None seen (NONE SEEN) Urine Mucus Present (None Seen) Urine Trichomonas None seen (NONE SEEN) Urine Yeast None (NONE SEEN) Urinalysis Comment None Urine Culture Reflexed Not indicated Urine Opiates Screen Negative Urine Methadone Screen Positive Urine Barbiturates Screen Negative Urine Amphetamines Screen Positive Urine Benzodiazepines Screen Negative Urine Cocaine Metabolite Screen Negative Urine Cannabinoids Screen Negative Prothrombin Time 10.4sec (8.1-12.5) Prothromb Time International Ratio 0.97ratio Activated Partial Thromboplast Time 20.3sec (22.8-33.0) Test 05/01/17 11:19 White Blood Count 17.5th/mm3 (3.8-10.1) Red Blood Count 4.46mil/mm3 (3.90-5.20) Hemoglobin 12.4g/dL (12.0-15.6) Hematocrit 40.2% (35.0-46.0) Mean Corpuscular Volume 90.1fL (81-100) Mean Corpuscular Hemoglobin 27.8pg (27.0-35.0) Mean Corpuscular Hemoglobin Concent 30.8% (32.0-37.0) Red Cell Distribution Width 21.8% (12.3-15.4) Platelet Count 396bil/L (150-400) Neutrophils (%) (Auto) 79.8% (40-74) Lymphocytes (%) (Auto) 9.4% (14-46) Monocytes (%) (Auto) 3.9% (4-12) Eosinophils (%) (Auto) 5.9% (0-5) Basophils (%) (Auto) 0.3% (0-3) Sodium Level 139mEq/L (134-144) Potassium Level 3.9mEq/L (3.5-5.2) Chloride Level 93mEq/L (97-108) Carbon Dioxide Level 28mmol/L (18-29) Blood Urea Nitrogen 19mg/dL (6-24) Creatinine 0.75mg/dL (0.57-1.00) Estimat Glomerular Filtration Rate 114mL/min (>59) Glucose Level 214mg/dL (60-99) Calcium Level 8.4mg/dL (8.5-10.1) Total Bilirubin 0.6mg/dL (0.0-1.2) Aspartate Amino Transf (AST/SGOT) 23U/L (0-50) Alanine Aminotransferase (ALT/SGPT) 20U/L (0-32) Alkaline Phosphatase 112U/L (25-150) Troponin T 0.010ug/L (0.0-0.011) Total Protein 6.5g/dL (6.4-8.4) Albumin 3.5g/dL (3.4-5.0) Assessment/Plan Assessment/Plan VANCOMYCIN MANAGEMENT A\ 56 YO F BEING TREATED FOR PNEUMONIA SCR=0.75 CRCL=87 WBC=17.5 AFEBRILE PT HAD PREVIOUSLY HAD AVERY WHICH IS RESOLVING. ALSO RECEIVING ZOSYN 3.375GRAM IV Q8H GOAL VANCOMYCIN TROUGH 15-20 P\ WILL LOAD WITH VANCOMYCIN 1750MG IV X1 AND THEN CONTINUE WITH VANCOMYCIN 1250MG IV Q12H STARTING 0300 05/02. WILL MONITOR SERUM CREATININE DAILY AND VANCOMYCIN TROUGH BEFORE THE 4TH DOSE 05/03 0300 Jigar Sanchez [facility] May 01, 2017 14:15
--- NOTE | 2017-05-01 14:38 | PROG NOTE ---
[address] [address] PROGRESS NOTE PATIENT: JONO RODNEY : 1960 MR#: [id number] ADMIT: 04/26/2017 JOB ID: [id number] DATE: 05/01/2017 SUBJECTIVE: The patient has had two bowel movements since her endoscopy, but unfortunately both of these were flushed and were not sent for PCR. She has been transferred down to PCU for more intensive respiratory care. She has pulmonary deterioration over the last 24 hours. Chest x-rays are noted. She has had no report of any ongoing active GI bleeding. OBJECTIVE: She is on high-flow oxygen but sitting up at the bedside. Hamburger on the tray. LABORATORY DATA: White count is up a little to 17.5. Hemoglobin 12.4. Platelets 396. Comprehensive metabolic panel within normal limits. ASSESSMENT AND RECOMMENDATIONS: A 56-year-old female with low-grade gastrointestinal bleeding and anemia. She has an erosive gastropathy. Biopsies pending. She has a segmental colitis that was, in essence, noncontiguous but I suspect ischemia. Histology is still pending. When another stool is available, I would still recommend just for completeness submitting for PCR, although my suspicion for ongoing infection is quite low. I will sign off from an inpatient standpoint for now to allow management of her ongoing pulmonary concerns. I have no reservations about restarting the Xarelto at present. If there are any questions or acute concerns that come up tomorrow, Dr. Cunningham will be continuous improvement black belt for the GI service at that time.
--- NOTE | 2017-05-01 15:28 | CONS ---
[address] [address] CONSULTATION REPORT PATIENT: JONO RODNEY : 1960 MR#: [id number] ADMIT: 04/26/2017 JOB ID: [id number] DATE OF SERVICE: 05/01/2017 REASON FOR CONSULTATION: Hypoxemia and abnormal chest x-ray. REQUESTING CLINICIAN: Veronica Lancaster MD. HISTORY OF ILLNESS: The patient is an unfortunate, morbidly obese 56-year-old former smoker with a history of polysubstance abuse and biopsy-proven desquamative interstitial pneumonitis. She is well known to me from previous admissions, which number at least four just over the preceding two months. The patient was recently readmitted to the hospital on April 26 with altered mental status, felt to be secondary to polypharmacy. Her chest x-ray at that time showed diffuse interstitial infiltrates, not particularly different from many prior studies. Her O2 requirement was slightly increased above her normal baseline of 2-4 L by cannula at home. She was transferred to CCU on the morning of May 01, 2017, and pulmonary consultation was requested after she developed worsening hypoxemia requiring initiation of high-flow nasal cannula oxygen at an FiO2 of 0.6. The patient denies any recent chest discomfort. Her dyspnea is at baseline. She has a cough but it has been nonproductive. She denies fevers, rigors, chills or sweats. She has chronic lower extremity edema although it is decreased from her normal baseline. She was diagnosed with a deep vein thrombosis last month and started on rivaroxaban, but it appears that she may not have been taking it based on her entirely normal PTT and pro-time/INR at the time of her admission. She has had no further ultrasound studies of the lower extremities or imaging of the chest for that matter to exclude new or recurrent thromboembolic disease. PAST MEDICAL HISTORY: 1. Biopsy-proven DIP. 2. Diastolic heart disease based on multiple prior echocardiogram. 3. Chronic hypoxemic respiratory failure with mild hypercapnia. 4. Diabetes mellitus type 2. 5. Moderate pulmonary hypertension. 6. Depression and anxiety. 7. Polysubstance abuse including heroin, marijuana, cocaine, and methamphetamine. It should be noted that urine drug screen on admission this time was positive for both methadone, that she is prescribed as a medication, and methamphetamine. 8. History of hepatitis C. 9. Right hip osteoarthritis. 10. Endometriosis. SURGICAL HISTORY: 1. VATS biopsy, right lung, demonstrating desquamative interstitial pneumonitis, versus nonspecific interstitial lung disease. 1. Hysterectomy without oophorectomy. 2. section. FAMILY HISTORY: Mother had a history of renal cell carcinoma. Father had congestive heart failure. SOCIAL HISTORY: She denies any recent smoking or alcohol use. She takes methadone chronically but denies other recreational drugs, despite the fact that her urine drug screen was positive for amphetamines. Interestingly, her admission history reports that she is a daily smoker. OUTPATIENT MEDICATIONS: 1. Albuterol unit dose and DuoNeb unit dose by nebulizer q.2-4 h. p.r.n. 2. Aspirin 81 mg daily. 3. Atorvastatin 20 mg at h.s. 4. Fluoxetine 20 mg daily. 5. Fluticasone nasal spray, two sprays each nostril daily p.r.n.. 6. Furosemide 40 mg p.o. daily. 7. Gabapentin 600 mg p.o. b.i.d. 8. Hydroxyzine 50 mg q.i.d. p.r.n. anxiety. 9. Insulin glargine 10 units subcu at h.s. 10. Lisinopril 30 mg daily. 11. Methadone 70 mg daily. 12. Mirtazapine 15 mg p.o. daily. 13. NPH insulin 8 units subcu t.i.d. with meals. 14. Omeprazole 20 mg p.o. q.a.m. 15. vitamin. 16. Prazosin 4 mg at h.s. p.r.n. nightmares. 17. Prednisone 30 mg daily at current. 18. Propranolol 10 mg p.o. t.i.d. p.r.n. anxiety. 19. Rivaroxaban 20 mg p.o. daily. 20. Sulfamethoxazole trimethoprim double-strength one p.o. three days each week. DRUG ALLERGIES: IODINE. FOOD ALLERGIES: EGG YOLK. CURRENT INPATIENT MEDICATIONS: Include: 1. Hydrocodone/acetaminophen 1 tablet q.6 p.r.n. 2. Gabapentin 300 mg daily. 3. Lispro insulin sliding scale. 4. DuoNeb unit dose q.4. 5. Furosemide 40 mg IV daily. 6. Methadone 70 mg p.o. daily. 7. Protonix 40 mg p.o. daily. 8. Gabapentin 600 mg p.o. b.i.d. 9. Fluoxetine 40 mg p.o. daily. 10. Insulin glargine 10 units subcu at h.s. 11. Atorvastatin 20 mg p.o. h.s. 12. Mirtazapine 15 mg p.o. h.s. 13. Propranolol 10 mg p.o. t.i.d. 14. Vancomycin by pharmacist-directed protocol. 15. Piperacillin/tazobactam 3.375 g q.8 IV. 16. Solu-Medrol 80 mg IV q.8. 17. Rivaroxaban 15 mg p.o. b.i.d. 18. Lorazepam 1 mg p.o. q.6 p.r.n. PHYSICAL EXAM: This is a morbidly obese woman who speaks rapidly and in full sentences. Appears slightly apprehensive but not in any respiratory distress. Her blood pressures have been 130/70 with a heart rate of 68, which is regular. Respirations are 20 and her O2 saturation at rest on high-flow nasal cannula of 60% is 93%. She is and has been afebrile. HEENT exam: Head appears normocephalic. Gait appears conjugate. Conjunctivae slightly injected. Sclerae anicteric. Pupils are equal and round. Oropharynx shows moist mucosa with whitish exudate at the base of the tongue. No ulceration is seen. Trachea is midline. There is no supraclavicular or cervical lymphadenopathy. Thyroid is not palpable. Lungs show decreased air movement in all [place] with scattered fine rales throughout. No wheezing is heard. Cardiac exam; Regular rhythm without murmur, gallop or rub. Soft S1 and S2 are present. Abdomen is distended, soft. I cannot appreciate organomegaly, mass or bruits. Bowel tones are present. Extremities are cool. She has pallor of the nail beds. There is no cyanosis or clubbing. Lower extremities show only trace edema bilaterally which is symmetric. DATABASE: Is per the electronic medical record. Her CBC today shows a hemoglobin of 12.4, hematocrit of 40. WBC of 17.5 and 396,000 platelets. Chemistry shows sodium 139, potassium 3.9, chloride of 93, total CO2 of 28, BUN of 19, creatinine 0.75, random glucose of 214. Total calcium 8.4. Transaminases, bilirubin, and alkaline phosphatase are all normal. Her most recent blood gas from today shows a pH of 7.45 with a pCO2 of 46 and a pO2 of 32, reportedly on an FiO2 of 45%, although it is not clear how this was being delivered at the time. Her chest x-ray showed cardiac and mediastinal silhouette effusions are absent. She has very diffuse generalized increase in interstitial markings without discrete specific consolidation. IMPRESSION: Acute on chronic hypoxemic respiratory failure. Multiple conditions contribute. The most significant is likely to be her desquamative interstitial pneumonitis. There is a strong suspicion that the patient continues to smoke cigarettes despite numerous conversations in which she was cautioned about the potentially fatal side effects thereof. In addition, she continues to use recreational drugs, on top of her prescribed polypharmacy. There may be a component of heart failure here given her documented diastolic dysfunction on previous echos. She recently had a deep vein thrombosis and was not adequately anticoagulated on admission, raising the possibility of a new thromboembolic event contributing to her hypoxemia. Finally, she has an elevated white count, and infection is always possible, although she has no fever, purulent sputum, or focal abnormalities on chest imaging consistent with a pneumonia. I am afraid there is nothing new to offer the patient which might alter the course of her disease. I will reiterate the same recommendations as I have made during her previous admissions, that is for her to use systemic steroids and consider a steroid-sparing agent, such as azathioprine, as she approaches 40 mg a day of the oral prednisone. Routine prophylaxis for Pneumocystis is reasonable and can be continued. She absolutely needs to quit all smoking and use of street drugs, particularly injectables which might complicate her lung disease. To help evaluate for the presence of cardiogenic pulmonary edema, a B-type natriuretic peptide level should be obtained if it has not been this admission. A CT pulmonary angiogram should be considered given that she was not adequately anticoagulated at time of admission, although one could argue that we have committed the patient to long-term anticoagulation of at least six months and would not alter that plan, even if she had been found to have a new thromboembolic event while not adequately anticoagulated. Finally, I would have a low threshold for continuing antibiotics at present as it is often difficult in this patient's case to definitively exclude a lower respiratory tract infection. RECOMMEND: 1. B-type natriuretic peptide level. Check Procalcitonin level and consider empiric antibiotics 2. Consider intensification of efforts at diuresis. 3. Continue parenteral steroids at current dose with very slow taper, considering the addition of a steroid-sparing agent as her daily prednisone dose approaches 40 mg per day. 4. Discussion with patient of the dangers of continued smoking of cigarettes or other recreational drugs. 5. Continue systemic anticoagulation with direct-acting oral anticoagulant, rivaroxaban. 6. Titrate high-flow nasal cannula oxygen as tolerated to keep oxygen saturation greater than 89% to 90%. Thank you for requesting pulmonary critical care consultation. Will follow peripherally as the patient has really become more of a chronic hospital-dependent patient and less of a truly acutely ill individual. EMMA
[2017-05-01 17:25] LABS: APPEARANCE,URINE CLEAR (CLEAR,HAZY); COLOR,URINE STRAW (YELLOW); OCCULT BLOOD,URINE NEGATIVE (NEGATIVE); PH,URINE 5.5 (5.0-8.0); UROBILINOGEN,URINE NORMAL (NORMAL)
[2017-05-01] MEDS: MethylprednisoLONE Sodium Succinate 40 mg/mL Inj IVPUSH SCH (17:29)
[2017-05-01] MEDS: Piperacillin-Tazo 3.375 Gm Inj 3.375 GM in Dextrose 5% Minibag Plus 50 ML IV SCH (17:43)
--- NOTE | 2017-05-01 18:40 | NUR ---
Mentation and diabetes teaching Pt. was forgetful at times and asked the same question several times. Gave frequent reorientation. She repeatedly called for more food and drinks. Reminded pt. that she had just ate 4 cups ice-cream/sherbert after lunch. Encouraged pt. to make right food choices because she is a diabetic. She is hyperglycemic, BG > 250s. She replied, "I'm hungry. If you can't get me any food, get me someone who will."
[2017-05-01] MEDS: Insulin GLARgine 100 Unit/mL Syringe SUBQ SCH (21:40)
[2017-05-02] VITALS (16 sets, daily range): BP systolic 120–167; BP diastolic 52–105; PULSE 85–111; RESP 16–24; O2SAT 88–98
[2017-05-02] MEDS: Piperacillin-Tazo 3.375 Gm Inj 3.375 GM in Dextrose 5% Minibag Plus 50 ML IV SCH ×3 (00:49→18:08)
[2017-05-02] MEDS: MethylprednisoLONE Sodium Succinate 40 mg/mL Inj IVPUSH SCH ×3 (00:51→15:52)
[2017-05-02] MEDS: Albuterol-Ipratropium 3 mL Inhalation Solution NEB SCH ×7 (00:58→23:58)
[2017-05-02] MEDS: hydrOXYzine Pamoate 25 mg Capsule PO PRN (01:41)
[2017-05-02 02:42] LABS: Mean Corpuscular Hemoglobin 27.9 pg (27.0-35.0); Mean Corpuscular Volume 89.8 fL (81-100); Platelet Count 393 bil/L (150-400)
[2017-05-02 03:10] LABS: BASOPHILS % (AUTO) 0 % (0-3); EOSINOPHILS % (AUTO) 0 % (0-5); MONOCYTES % (AUTO) 0 % (4-12); NEUTROPHILS % (AUTO) 82 % (40-74)
[2017-05-02] MEDS: Vancomycin Inj 1,250 MG in 0.9% Sodium Chloride 250 ML IV SCH ×2 (03:45→15:47)
--- NOTE | 2017-05-02 05:56 | NUR ---
Anxiety / Rest 2006 A/O with moderate anxiety, intermittently. Indicated hip pain which ranges 5-8/10. On High Flow oxygen support, managed by RT. Pt. able verbalize needs, and rested for extended periods, with eyes closed. Indicated no further needs, VSS. Tele: SR in
[2017-05-02] MEDS ORDERED: Calcium GLUCO 10% (mEq) Inj 4.65 MEQ in Dextrose 5% 50 ML IV ONE (07:10)
[2017-05-02] MEDS: Vancomycin Dose per Pharmacist XX SCH (08:30)
[2017-05-02] MEDS: Pantoprazole 40 mg ER24 Tablet PO SCH ×2 (09:05→15:51)
[2017-05-02] MEDS: Furosemide 10 mg/mL 4 mL Inj IVPUSH SCH ×2 (09:06→21:42)
[2017-05-02] MEDS: LORazepam 1 mg Tablet PO PRN ×2 (09:09→15:51)
[2017-05-02] MEDS: Insulin LISPRO 300 Unit/3 mL Inj SUBQ SCH ×4 (09:09→21:52)
[2017-05-02] MEDS: HYDROcodone-APAP 10-325 mg PO PRN ×2 (09:10→15:52)
--- NOTE | 2017-05-02 13:06 | PCM.PNMED ---
Subjective Date of Service May 02, 2017 Subjective Patient notes she still is having shortness of breath she denies any cough denies any chest pain. She still is requiring high flow oxygen to maintain her O2 sats. Exam Vital Signs Vital Sign - Last Date Time Temp Pulse Resp B/P Pulse Ox O2 Delivery O2 Flow Rate FiO2 05/02/17 11:49 36.6 106 22 120/68 93 High Flow 05/02/17 11:28 50 05/02/17 08:18 40 Intake and Output 05/01/17 05/01/17 05/02/17 Cumulative From/Thru 15:00 23:00 07:00 04/25/17 21:12 - 05/02/17 05:52 Intake Total 1590 ml 835 ml 99532 ml Output Total 2500 ml 900 ml 58129 ml Balance -910 ml -65 ml 3734 ml Intake Oral 990 ml 448 ml 29136 ml IV Total 600 ml 387 ml 6466 ml Output Urine Total 2500 ml 900 ml 56018 ml Stool Total 1400 ml Urine/Stool Mix 450 ml # Voids 7 # Bowel Movements 0 6 Exam Constitutional: Middle-aged female who is short of breath Head: Normocephalic atraumatic Chest: reveals diffuse coarse crackles more posterior bases Cor: Regular rate and rhythm S1-S2 Abdomen: Soft nontender bowel sounds present Extremities: No pedal edema Psych: Mood and affect are appropriate Skin: No rashes Neuro: Alert and oriented 3, motor strength is intact bilaterally IVs and Medications Medications Reviewed: Medications were reviewed in detail Lab and Diagnostics Laboratory Tests 72 Hours Test 04/30/17 10:10 05/01/17 11:19 05/01/17 14:21 05/01/17 17:03 Hemoglobin 11.0g/dL (12.0-15.6) 12.4g/dL (12.0-15.6) Hematocrit 36.0% (35.0-46.0) 40.2% (35.0-46.0) White Blood Count 17.5th/mm3 (3.8-10.1) Red Blood Count 4.46mil/mm3 (3.90-5.20) Mean Corpuscular Volume 90.1fL (81-100) Mean Corpuscular Hemoglobin 27.8pg (27.0-35.0) Mean Corpuscular Hemoglobin Concent 30.8% (32.0-37.0) Red Cell Distribution Width 21.8% (12.3-15.4) Platelet Count 396bil/L (150-400) Neutrophils (%) (Auto) 79.8% (40-74) Lymphocytes (%) (Auto) 9.4% (14-46) Monocytes (%) (Auto) 3.9% (4-12) Eosinophils (%) (Auto) 5.9% (0-5) Basophils (%) (Auto) 0.3% (0-3) Sodium Level 139mEq/L (134-144) Potassium Level 3.9mEq/L (3.5-5.2) Chloride Level 93mEq/L (97-108) Carbon Dioxide Level 28mmol/L (18-29) Blood Urea Nitrogen 19mg/dL (6-24) Creatinine 0.75mg/dL (0.57-1.00) Estimat Glomerular Filtration Rate 114mL/min (>59) Glucose Level 214mg/dL (60-99) Calcium Level 8.4mg/dL (8.5-10.1) Total Bilirubin 0.6mg/dL (0.0-1.2) Aspartate Amino Transf (AST/SGOT) 23U/L (0-50) Alanine Aminotransferase (ALT/SGPT) 20U/L (0-32) Alkaline Phosphatase 112U/L (25-150) Troponin T 0.010ug/L (0.0-0.011) < 0.010ug/L (0.0-0.011) Total Protein 6.5g/dL (6.4-8.4) Albumin 3.5g/dL (3.4-5.0) Urine Color Straw (YELLOW) Urine Appearance Clear (CLEAR,HAZY) Urine pH 5.5 (5.0-8.0) Urine Specific [place] 1.010 (1.003-1.035) Urine Protein Negativemg/dL (NEG,TRACE) Urine Glucose (UA) 1000mg/dL (NEGATIVE) Urine Ketones Negativemg/dL (NEGATIVE) Urine Occult Blood Negative (NEGATIVE) Urine Nitrite Negative (NEGATIVE) Urine Bilirubin Negative (NEGATIVE) Urine Urobilinogen Normalmg/dL (NORMAL) Urine Leukocyte Esterase Negative (NEGATIVE) Urine RBC 0-2/hpf (0-2) Urine WBC 0-5/hpf (0-5) Urine Epithelial Cells Occasional/hpf (NONE-MOD) Urine Crystals Uric acid crystals (NONE Urine Bacteria None/hpf (NONE-FEW) Urine Hyaline Casts None/lpf (NONE) Urine Granular Casts None seen (NONE SEEN) Urine Waxy Casts None seen (NONE SEEN) Urine Red Blood Cell Casts None seen (NONE SEEN) Urine White Blood Cell Casts None seen (NONE SEEN) Urine Mucus None seen (None Seen) Urine Trichomonas None seen (NONE SEEN) Urine Yeast None (NONE SEEN) Urinalysis Comment None Urine Culture Reflexed Not indicated Test 05/01/17 22:34 05/02/17 02:20 Troponin T 0.010ug/L (0.0-0.011) White Blood Count 7.3th/mm3 (3.8-10.1) Red Blood Count 3.94mil/mm3 (3.90-5.20) Hemoglobin 11.0g/dL (12.0-15.6) Hematocrit 35.4% (35.0-46.0) Mean Corpuscular Volume 89.8fL (81-100) Mean Corpuscular Hemoglobin 27.9pg (27.0-35.0) Mean Corpuscular Hemoglobin Concent 31.1% (32.0-37.0) Red Cell Distribution Width 21.2% (12.3-15.4) Platelet Count 393bil/L (150-400) Neutrophils (%) (Auto) 82% (40-74) Lymphocytes (%) (Auto) 13% (14-46) Monocytes (%) (Auto) 0% (4-12) Eosinophils (%) (Auto) 0% (0-5) Basophils (%) (Auto) 0% (0-3) Band Neutrophils % 1% (1-5) Nucleated Red Blood Cells 1/100 WBC (0-24) Hematology Comments Sodium Level 141mEq/L (134-144) Potassium Level 5.2mEq/L (3.5-5.2) Chloride Level 98mEq/L (97-108) Carbon Dioxide Level 25mmol/L (18-29) Blood Urea Nitrogen 23mg/dL (6-24) Creatinine 0.69mg/dL (0.57-1.00) Estimat Glomerular Filtration Rate 126mL/min (>59) Glucose Level 300mg/dL (60-99) Calcium Level 7.9mg/dL (8.5-10.1) Total Bilirubin 0.3mg/dL (0.0-1.2) Aspartate Amino Transf (AST/SGOT) 34U/L (0-50) Alanine Aminotransferase (ALT/SGPT) 21U/L (0-32) Alkaline Phosphatase 96U/L (25-150) Pro-B-Type Natriuretic Peptide 2509pg/mL (0-287) Total Protein 5.9g/dL (6.4-8.4) Albumin 3.0g/dL (3.4-5.0) Procalcitonin 0.12ng/mL (0.00-0.08) Result Diagram: 05/02/1721905/02/17219 X-Rays, CTs and MRIs 04/25/17 - X-RAY CHEST ONE VIEW, PORTABLE IMPRESSION: Diffuse interstitial prominence. Differential considerations include pulmonary edema, ARDS, or pneumonitis. Approved by: Penelope Granados M.D. on 04/25/2017 at 22:19 04/26/17 - CT BRAIN WITHOUT CONTRAST IMPRESSION: -No acute intracranial abnormality. 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 Approved by: Jens Jarrell M.D. on 04/26/2017 at 7:26 . Additional Diagnostics 04/28/17 - EGD & COLONOSCOPY w/BIOPSIES. ENDOSCOPIC DIAGNOSES: 1. Mild to moderate gastropathy. 2. Duodenal submucosal lesion, question lipoma? 3. Noncontiguous segmental colitis. IBD is within the differential but overall the appearance suggested ischemic change. 4. Hemorrhoids. 5. Otherwise no sign of any recent or active gastrointestinal hemorrhage. RECOMMENDATIONS: 1. Await histopathology. 2. Advance diet as tolerated. 3. If Helicobacter is found, it will need to be eradicated with standard triple therapy. 4. The patient would be encouraged to maintain adequate outpatient hydration and normal blood pressure, and maintain a regular fiber regimen for soft regular stools. 5. From a GI standpoint, the patient can be discharged home at the discretion of the patient's primary service. Tonny Vital MD 04/28/17 6213 Assessment & Plan Rebeca Casarez is a 56-year-old female with extensive medical history including COPD, interstitial lung disease, depression, anxiety, and diabetes mellitus type II insulin using who presented to the ED via EMS due to altered mental status, feeling weak and fatigued. In the ED she was found to have melena and her H/H has fallen from 13 to 9 in approximately 2 weeks since her last admission. Upper GI bleed, present on admission. Acute. Ongoing. - H/H fell from 13 - 9 over 2 weeks; 3 day history of ongoing melena - Protonix continued though drip now DC'd. -Patient was transitioned off of IV Protonix drip to Protonix 40 mg by mouth twice a day - Trend H/H in AM, still downward trending though may be dilutional -Hematocrit is stable today so we will go ahead and restart Xarelto -Biopsies are pending at the time of this dictation Acute kidney injury, present on admission. Acute. Ongoing. - Likely prerenal with dehydration and questionable med usage, as she had a significant Nephrology work up in late February - Creatinine at last discharged was 0.6, is now 2.88 - Hold metformin, lisinopril - Avoid nephrotoxic medications - NS at 100ml/hr x1L; will reassess with morning CMP -Markedly improved Acute on chronic respiratory failure, with hypoxia -She is requiring more oxygen recently and symptomatically feels a little bit more dyspneic with more of a cough -Do schedule duo nebs every 4 hours while awake and albuterol nebs when necessary -Continue with prednisone 30 mg by mouth daily -Check chest x-ray -Respiratory working on getting Trilogy approved for her home use -We also have arranged through [facility] for her to get a new nebulizer with nebulizer medications ordered also -DC IV fluids -Patient is increasingly dyspneic and with hypoxia on a.m. of May 01 so will transfer to [facility], telemetry for high flow oxygen therapy -I have ordered stat CBC platelets differential, BMP, serial troponins, and ABG -Stat EKG, stat chest x-ray ordered -We will give dose of IV Lasix 40 mg stat -Also discussed case with Dr. Reed of pulmonary to consult. -Appreciate Dr. Reed's pulmonary consultation. -Continue to cover for possible infectious process with IV vancomycin and IV Zosyn. Also continue with IV Lasix twice a day diuresis as may be part of the etiology with acute diastolic dysfunction as mentioned by Dr. Reed. Also may be a flare of discriminative interstitial pneumonitis and hence will continue with high-dose IV Solu-Medrol for now. Acute AMS, resolved: - May be multifactorial - Given previous mitra of methaphatime use, new picking type ulcerative lesions of face and forearms, Utox is positive for methamphetamine and methadone -Resolved Diabetes mellitus type II insulin using, present on admission. Chronic. - Continue Glargine 10 units at night - Low dose correctional ordered for now - Hold metformin due to AVERY Hypertension, present on admission. Chronic. - Hold Lisinopril 30mg daily -Upon admission patient's by mouth Lasix was held but reinstituted on April 30 due to increasing oxygen requirements and possible pulmonary edema seen on 2 view chest x-ray that day Hyperlipidemia, present on admission. Chronic. - Continue atorvastatin 20 mg at night COPD, present on admission. Chronic. - Continue prednisone 30mg daily; she was on a taper from 60mg, day team to evaluate dosage - Continue DuoNeb and albuterol inhalers as needed GERD, present on admission. Chronic. -Currently on Protonix 40 mg by mouth twice a day Chronic pain, present on admission. Chronic. - Continue gabapentin 600 mg twice daily, 300 mg at noon - Continue methadone 70 mg daily, [place] now RX'd for breakthrough given refractory symptoms. History of DVT, present on admission. Chronic. - Hold Xarelto 20mg daily due concern for GI bleed at admit -Patient was reinitiated on Xarelto on April 30 Depression, present on admission. Chronic - Continue mirtazapine 15 mg at night - Continue fluoxetine 40 mg daily Anxiety, present on admission. Chronic. - Continue Prazosin 4mg nightly as needed - Continue hydroxyzine 50mg QID as needed - Continue propranolol 10mg TID as needed Tobacco Use Disorder, present on admission. Chronic. - Nicotine patch as needed - Cessation counseled; declined PRN Medications - Acetaminophen as needed for mild pain/fever/headache - Bowel regimen as needed - Antiemetic as needed Patient status: Patient is admitted under inpatient status with expected length of stay greater than 2 midnights due to severity of presenting symptoms, risk of adverse event, and complexity of treatment plan. Pain Evaluation: Adequate Pain Control GI Prophylaxis: Proton Pump Inhibitor VTE Mechanical Devices: Intermittant Pneumatic CD Resuscitation Status: CPR: Attempt Resuscitation GI Prophylaxis: Proton Pump Inhibitor VTE Mechanical Devices: Intermittant Pneumatic CD Resuscitation Status: CPR: Attempt Resuscitation Time spent 30 minutes Veroncia Lancaster MD May 02, 2017 13:06
--- NOTE | 2017-05-02 14:35 | NUR ---
Ambulation Pt wanting to get up and to the bathroom when needing to void. After multiple times up due to Lasix pt started to use BSC due to frequency and SOB with so much activity. Pt able to get the the bathroom slight SBA w/FWW and high flow but does desat down to 85%-88% with increase RR and some SOB noted.
[2017-05-02] MEDS: Insulin GLARgine 100 Unit/mL Syringe SUBQ SCH (21:48)
[2017-05-03] VITALS (12 sets, daily range): BP systolic 122–158; BP diastolic 72–83; PULSE 88–106; RESP 16–22; O2SAT 92–97
[2017-05-03] MEDS: MethylprednisoLONE Sodium Succinate 40 mg/mL Inj IVPUSH SCH ×2 (00:49→17:55)
[2017-05-03] MEDS: Piperacillin-Tazo 3.375 Gm Inj 3.375 GM in Dextrose 5% Minibag Plus 50 ML IV SCH ×3 (00:49→16:22)
[2017-05-03] MEDS ORDERED: Vancomycin Serum Trough XX ONE (02:30)
[2017-05-03 02:54] LABS: BASOPHILS % (AUTO) 0 % (0-3); EOSINOPHILS % (AUTO) 0 % (0-5); Mean Corpuscular Hemoglobin 27.8 pg (27.0-35.0); Mean Corpuscular Volume 89.9 fL (81-100); Platelet Count 470 bil/L (150-400)
[2017-05-03 03:07] LABS: MONOCYTES % (AUTO) 4 % (4-12); NEUTROPHILS % (AUTO) 91 % (40-74)
--- NOTE | 2017-05-03 03:09 | NUR ---
Pain/Diabetes education Patient frequently asking for ice cream. BG 277 at HS, which is improvement from last several days. Patient educated on the importance of eating the right food to help maintain a healthy blood sugar. Patient was somewhat resistant to the idea as she reports " I am not diabetic." Discussed with the patient the impact that steroids can have on the blood glucose. Patient seemed to accept this and chose to have crackers and peanut butter rather than ice cream. Complained of pain to hip, requested pain medications. Patient was asleep before RN left the room. and continued to sleep throughout the night. No pain meds given. Will continue to monitor.
[2017-05-03] MEDS: Vancomycin Inj 1,250 MG in 0.9% Sodium Chloride 250 ML IV SCH (03:43)
[2017-05-03] MEDS: Insulin LISPRO 300 Unit/3 mL Inj SUBQ SCH ×4 (08:12→21:50)
[2017-05-03] MEDS: Pantoprazole 40 mg ER24 Tablet PO SCH ×2 (08:12→16:22)
[2017-05-03] MEDS: Furosemide 10 mg/mL 4 mL Inj IVPUSH SCH ×2 (08:13→21:42)
[2017-05-03] MEDS: Vancomycin Dose per Pharmacist XX SCH (08:18)
--- NOTE | 2017-05-03 09:06 | NUR ---
Palliative care note D/A: Palliative care consult kindly received by Dr. Lancaster and was ordered on 05/02/17. Please note that pt is familiar to Palliative Care service. Pt has had several admits in the last couple of months and medical team is indicating that she is becoming less of an acutely ill patient and more of a hospital dependent patient. Note that pt has a mother who is involved in her life. Her name is Li Cooper and she can be reached at [phone]. She also has a daughter Carmela Ivy, who is noted to have signed the POLST in pt chart and Carmela can be reached at [phone]. Pt admitted with a history of COPD, interstitial lung disease, depression, anxiety and DM Type II. She has a history of IVDA opiates and is currently in services with [facility] for three times a week methadone. Her tox screen was positive for methadone and methamphetamines. Pt has Jha and DS and is approved for [employer] , but she does not have a CG. During past admit, she was found to have a PE and was discharged home on anti-coagulant but there is concern that she did not take her medications as directed as her lab values reflect possible lack of medication. Pt also could not indicate how she was taking her meds. Respiratory therapy is working on arranging a Trilogy for this pt. She is currently on high flow O2. P: Palliative care to follow. Yoselin Sethi [facility] Addendum: 05/03/17 at 1046 by CHRISS SETHI PC note amendment Dr. Winkler has spoken to pt medical team. Decision reached to cancel palliative care referral. Yoselin JUAREZ, CCM
[2017-05-03] MEDS: Albuterol-Ipratropium 3 mL Inhalation Solution NEB SCH ×4 (10:43→20:12)
[2017-05-03] MEDS: LORazepam 1 mg Tablet PO PRN ×2 (12:58→21:43)
[2017-05-03] MEDS: HYDROcodone-APAP 10-325 mg PO PRN (13:00)
--- NOTE | 2017-05-03 15:51 | NUR ---
Social Work: Continued Discharge Planning/Multidisciplinary Rounds D: Pt discussed in multidisciplinary rounds; palliative care consult placed for goals of care discussion. The patient is also in need of diabetic education prior to discharge as she appears to have uncontrolled diabetes which she denies having. [employer] spoke with respiratory therapy who states [facility] is working to get the patient a home trilogy machine. The patient is a high readmission risk and regularly frequents the ED with multiple admissions. In the past patient has declined home health services. At this time, local home health companies servicing [place] are not accepting the patient's insurances (Medicaid plans). [employer] attempted to meet with the patient at bedside. Pt presently with High Flow 02 and resting very soundly. [employer] unable to wake patient with verbal cues and will return at a later time to discuss discharge planning. Case management contact information provided on patient's white board. A: Pt who was previously living at home with support from her family. [place] with [place]. P: Anticipate pt will likely discharge home when medically stable; [employer] to continue to follow to assess for unmet needs. OSKAR Foy
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
--- NOTE | 2017-05-03 16:55 | PATH ---
SURGICAL PATHOLOGY Attending Physician:Bruce Hanks CASE STATUS: Signed Out PATIENT NAME: JONO RODNEY PID: [id number] : 1960 DATE COLLECTED:04/28/2017 00:00 SPECIMEN: 1: Gastric, Biopsy 2: Duodenum, Biopsy 3: Colon, Biopsy CLINICAL HISTORY: GASTROINTESTINAL BLOOD LOSS, MELENA, GASTRITIS 1). GASTRIC BIOPSY, RULE OUT H PYLORI 2). DUODENAL NODULE BIOPSY, RULE OUT LIPOMA 3). DESCENDING EROSION BIOPSY FINAL DIAGNOSIS: 1.STOMACH, BIOPSY: GASTRIC BODY-TYPE MUCOSA WITH NO DIAGNOSTIC ABNORMALITY. Negative for Helicobacter organisms. Negative for intestinal metaplasia. No evidence of dysplasia or malignancy. 2.DUODENAL NODULE, BIOPSY: DUODENAL MUCOSA WITH SUBMUCOSAL ADIPOSE TISSUE CONSISTENT WITH ENDOSCOPIC IMPRESSION OF LIPOMA. Negative for active inflammation, features of sprue, dysplasia or malignancy. 3.DESCENDING COLON EROSION, BIOPSY: COLONIC MUCOSA WITH MILD TO FOCALLY MODERATE ACTIVE COLITIS. Negative for granulomata, dysplasia or malignancy. [id number] NOTE: 3. The findings in the descending colon raise a differential diagnosis including infection and drug/toxin-induced injury. GROSS DESCRIPTION: The specimen is received in three formalin filled containers labeled with the patient's name. 1). The specimen is labeled "gastric" and consists of a less than 0.1 CM portion of tissue which is entirely submitted in cassette 1A. 2). The specimen is labeled "duodenal nodule" and consists of a 0.3 x 0.3 x 0.3 CM portion of tissue which is entirely submitted in cassette 2A. 3). The specimen is labeled "descending erosion" and consists of 2 portions of tissue which aggregate to 0.2 x 0.2 x 0.2 CM. The specimen is entirely submitted in cassettes 3A. 04/29/2017SD MICRO DESCRIPTION: See diagnosis. ICD-9 CODES: CPT CODES: 1: 86009 2: 51267 3: 44528 Electronically Signed Out Sandeep Siu MD, Ph.D. [facility] Pathology [facility] [address], [place] [address] Technical component performed at [facility], [facility] [address], [place], [address]
--- NOTE | 2017-05-03 20:05 | PCM.PNMED ---
Subjective Date of Service May 03, 2017 Subjective Subjective: Patient states that she is currently breathing well and experiencing minimal shortness of breath. We discussed at length the possibility of speaking with palliative care and/or hospice which she states she would like to continue to think about. Events Overnight: No acute events overnight. ROS: Denies fever/chills, nausea/vomiting, headache, weakness, abdominal pain, chest pain, shortness of breath, increased swelling in hands or feet. Exam Vital Signs Vital Sign - Last Date Time Temp Pulse Resp B/P Pulse Ox O2 Delivery O2 Flow Rate FiO2 05/03/17 16:36 95 16 96 Nasal Cannula 40 50 05/03/17 16:20 37.1 143/79 Intake and Output 05/02/17 05/02/17 05/03/17 Cumulative From/Thru 15:00 23:00 07:00 04/25/17 21:12 - 05/03/17 06:54 Intake Total 1918 ml 590 ml 77075 ml Output Total 2200 ml 2100 ml 81133 ml Balance -282 ml -1510 ml 1942 ml Intake Oral 1490 ml 400 ml 43587 ml IV Total 428 ml 190 ml 7084 ml Output Urine Total 2200 ml 2100 ml 92571 ml Stool Total 1400 ml Urine/Stool Mix 450 ml # Voids 4 11 # Bowel Movements 6 Exam General: No acute distress, well-developed, well-nourished Head: Normocephalic, atraumatic. External ears without defect. Eyes: Pupils equal, round, and reactive to light and accommodation. Anicteric sclerae, moist conjunctivae. Neck: Normal range of motion, no lymphadenopathy noted Cardiovascular: Regular rate and rhythm with mild systolic murmur, rubs, or gallops appreciated Pulmonary: Decreased diffusely breath sounds, wheezes, or rhonchi. Normal respiratory effort with no use of accessory muscles. Abdomen: Bowel tones present. Soft, nontender, nondistended. Extremities: Obvious clubbing, no cyanosis or edema Skin: Normal temperature, turgor, and texture; no rash, ulcers, or subcutaneous nodules appreciated. Neurological: Cranial nerves grossly intact. Reflexes, coordination, and sensory function within normal limits. Normal muscle strength, tone, and bulk. Psychiatric: Normal mood and affect. Alert and oriented to person, place, and time IVs and Medications IV Fluids 525 mL normal saline delivered with IV medications. Medications Reviewed: Medications were reviewed in detail Medications High-risk medications include: Methadone Ativan Hydrocodone Xarelto Lab and Diagnostics Result Diagram: 05/03/17 02405/03/17 024 X-Rays, CTs and MRIs 04/25/17 - X-RAY CHEST ONE VIEW, PORTABLE IMPRESSION: Diffuse interstitial prominence. Differential considerations include pulmonary edema, ARDS, or pneumonitis. Approved by: Penelope Granados M.D. on 04/25/2017 at 22:19 04/26/17 - CT BRAIN WITHOUT CONTRAST IMPRESSION: -No acute intracranial abnormality. 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 Approved by: Jens Jarrell M.D. on 04/26/2017 at 7:26 . Additional Diagnostics 04/28/17 - EGD & COLONOSCOPY w/BIOPSIES. ENDOSCOPIC DIAGNOSES: 1. Mild to moderate gastropathy. 2. Duodenal submucosal lesion, question lipoma? 3. Noncontiguous segmental colitis. IBD is within the differential but overall the appearance suggested ischemic change. 4. Hemorrhoids. 5. Otherwise no sign of any recent or active gastrointestinal hemorrhage. RECOMMENDATIONS: 1. Await histopathology. 2. Advance diet as tolerated. 3. If Helicobacter is found, it will need to be eradicated with standard triple therapy. 4. The patient would be encouraged to maintain adequate outpatient hydration and normal blood pressure, and maintain a regular fiber regimen for soft regular stools. 5. From a GI standpoint, the patient can be discharged home at the discretion of the patient's primary service. Tonny Vital MD 04/28/17 0823 Assessment & Plan Rebeca Casarez is a 56-year-old female with extensive medical history including COPD, interstitial lung disease, depression, anxiety, and diabetes mellitus type II insulin using who presented to the ED via EMS due to altered mental status, feeling weak and fatigued. In the ED she was found to have melena and her H/H has fallen from 13 to 9 in approximately 2 weeks since her last admission. Acute on chronic respiratory failure, with hypoxia -She is requiring more oxygen recently and symptomatically feels a little bit more dyspneic with more of a cough -Pt currently on high flow oxygen, FIO2 40 with flow of 40L -Do schedule duo nebs every 4 hours while awake and albuterol nebs when necessary -Respiratory working on getting Trilogy approved for her home use -Pulmonology consulted -Continue to cover for possible infectious process with IV Zosyn through 05/04 per ID recs. -Continue with IV Lasix 40 BID for possible fluid overload - continue 60 IV Solu-Medrol Diabetes mellitus type II insulin using, present on admission. Chronic. - Continue Glargine 10 units at night - High dose correctional Upper GI bleed, present on admission. Acute. Resolved. - H/H currently stable - Continue Protonix 40 mg PO BID - continue to trend - Xarelto restarted Acute kidney injury, present on admission. Acute. Resolved - Possibly due to dehydration and questionable med usage, as she had a significant Nephrology work up in late February - Creatinine now within normal limits - Avoid nephrotoxic medications - Markedly improved Acute AMS, resolved - May be multifactorial - Given previous mitra of methaphatime use, new picking type ulcerative lesions of face and forearms, Utox is positive for methamphetamine and methadone Hypertension, present on admission. Chronic. - Hold Lisinopril 30mg daily Hyperlipidemia, present on admission. Chronic. - Continue atorvastatin 20 mg at night COPD, present on admission. Chronic. - Continue solumedrol 60mg IV BID - Continue DuoNeb and albuterol inhalers as needed GERD, present on admission. Chronic. -Currently on Protonix 40 mg by mouth twice a day Chronic pain, present on admission. Chronic. - Continue gabapentin 600 mg twice daily, 300 mg at noon - Continue methadone 70 mg daily, [place] now RX'd for breakthrough given refractory symptoms. History of DVT, present on admission. Chronic. - Restart Xarelto 20mg Depression, present on admission. Chronic - Continue mirtazapine 15 mg at night - Continue fluoxetine 40 mg daily Anxiety, present on admission. Chronic. - Continue Prazosin 4mg nightly as needed - Continue hydroxyzine 50mg QID as needed - Continue propranolol 10mg TID as needed Tobacco Use Disorder, present on admission. Chronic. - Nicotine patch as needed - Cessation counseled; declined PRN Medications - Acetaminophen as needed for mild pain/fever/headache - Bowel regimen as needed - Antiemetic as needed Disposition: Pt will likely require 5-7 more days of in patient care before discharge. Pain Evaluation: Adequate Pain Control GI Prophylaxis: Proton Pump Inhibitor VTE Mechanical Devices: Intermittant Pneumatic CD Resuscitation Status: CPR: Attempt Resuscitation GI Prophylaxis: Proton Pump Inhibitor VTE Mechanical Devices: Intermittant Pneumatic CD Resuscitation Status: CPR: Attempt Resuscitation Attending Statement The patient was seen and examined together with Dr. Levi on 05/03/17 and I have added additional information to the note above. David Levi May 03, 2017 20:05 Mercedes Valle DO May 07, 2017 13:19 VTE Mechanical Devices: Intermittant Pneumatic CD Resuscitation Status: CPR: Attempt Resuscitation David Levi May 03, 2017 20:05 GI Prophylaxis: Proton Pump Inhibitor VTE Mechanical Devices: Intermittant Pneumatic CD Resuscitation Status: CPR: Attempt Resuscitation GI Prophylaxis: Proton Pump Inhibitor VTE Mechanical Devices: Intermittant Pneumatic CD Resuscitation Status: CPR: Attempt Resuscitation David Levi DO May 03, 2017 20:05 Resuscitation Status: CPR: Attempt Resuscitation GI Prophylaxis: Proton Pump Inhibitor VTE Mechanical Devices: Intermittant Pneumatic CD Resuscitation Status: CPR: Attempt Resuscitation David Levi May 03, 2017 20:05
[2017-05-03] MEDS ORDERED: Glucose 40% Oral Gel 15 Gm Tube PO PRN (20:20)
[2017-05-03] MEDS ORDERED: Dextrose 10% 250 ML IV PRN (20:35)
[2017-05-03] MEDS: Insulin GLARgine 100 Unit/mL Syringe SUBQ SCH (21:47)
[2017-05-04] VITALS (17 sets, daily range): BP systolic 133–174; BP diastolic 74–91; PULSE 88–105; RESP 16–22; O2SAT 87–96
[2017-05-04] MEDS: Albuterol-Ipratropium 3 mL Inhalation Solution NEB SCH ×6 (00:43→18:15)
[2017-05-04] MEDS: Piperacillin-Tazo 3.375 Gm Inj 3.375 GM in Dextrose 5% Minibag Plus 50 ML IV SCH (00:56)
[2017-05-04] MEDS: MethylprednisoLONE Sodium Succinate 40 mg/mL Inj IVPUSH SCH ×3 (00:59→16:53)
[2017-05-04] MEDS: HYDROcodone-APAP 10-325 mg PO PRN ×3 (02:48→17:17)
[2017-05-04] MEDS: LORazepam 1 mg Tablet PO PRN ×3 (03:57→17:16)
[2017-05-04 04:06] LABS: BASOPHILS % (AUTO) 0 % (0-3); EOSINOPHILS % (AUTO) 0 % (0-5); MONOCYTES % (AUTO) 2.7 % (4-12); Mean Corpuscular Hemoglobin 27.7 pg (27.0-35.0); Mean Corpuscular Volume 89.5 fL (81-100); Platelet Count 454 bil/L (150-400)
--- NOTE | 2017-05-04 06:42 | NUR ---
Pain/Restful Night Pt given PRN Iliff x1 for right hip pain, this was effective as pt had no further complaints of this overnight and appeared to sleep comfortably between care interventions w/ exceptions of having to use BSC w/ frequency d/t Lasix. Vitals stable, pt continues on high flow. Pt monitored on [employer].
--- NOTE | 2017-05-04 08:48 | PROG NOTE ---
[address] [address] PROGRESS NOTE PATIENT: JONO RODNEY : 1960 MR#: [id number] ADMIT: 04/26/2017 JOB ID: [id number] DATE: 05/04/2017 INFECTIOUS DISEASE FOLLOW UP NOTE: REASON FOR FOLLOWUP: Respiratory failure and multiple associated severe underlying medical problems. INTERVAL HISTORY: Overnight, the patient reports her breathing has gradually improved and I discussed this at the bedside with respiratory therapist who was also in the room when I was examining the patient. Her oxygen requirements are falling fairly steadily and there was a thought she may be able to get off high-flow and switch to nasal prongs this morning. Meanwhile the patient says she has no significant cough or sputum production. No fevers, chills or sweats. She did report diarrhea before she came in the hospital but it has not been a problem during her now nine day stay here in the hospital. She denies nausea or vomiting. PHYSICAL EXAMINATION: Reveals an afebrile woman. Temperature 36.8, pulse 90, respiratory rate in the low 20s, saturating well on high-flow oxygen and that is being weaned steadily. Blood pressure 162/81. Her mental status is completely clear. Oral cavity without thrush. Eyes without conjunctivitis or scleral icterus. Lungs with decreased breath sounds bilaterally but relatively clear in what is available with an occasional wheeze. The abdomen is soft and nontender without organomegaly. No new skin rash is noted. LABORATORIES: Include white count 15,300. Differential shows 90% segs but, of course, she is on steroids. Creatinine 0.85. ALT is 34. Albumin 3.5. Procalcitonin 0.05, which is essentially 0 for all intents and purposes. Urinalysis without white cells. Micro studies include a respiratory viral PCR which is negative. IMAGING: Has not been done for a couple days and was previously discussed in earlier notes. The path reports from the endoscopy she underwent when she was first here are notable for some mild focal colitis seen on the colon biopsies. It is notable that the gastric and duodenal biopsies were basically negative. IMPRESSION: This patient is much improved from a respiratory point of view, and I see no evidence for ongoing bacterial infection whatsoever. Her procalcitonin is 0 and there has never been any compelling evidence that infection was a significant component of this admission's problems. The [id number] focal colitis seen on the biopsy is interesting and raises the possibility of infection and one would be concerned in this circumstance about CMV in particular given her chronic steroid use. RECOMMENDATIONS: 1. Will discontinue all antibiotics at this time. 2. If there are additional concerns about the possibility of even invasive colitis such as CMV, one could request additional special stains from pathology to look for CMV if that has not already been done or even re-biopsy, but right now the patient's diarrhea has actually resolved and she has little in the way of GI symptoms so I am not certain that any of that is necessarily indicated at this juncture. 3. ID will go ahead and sign off as the patient appears uninfected at this point. There are no other outstanding ID issues.
[2017-05-04] MEDS: Pantoprazole 40 mg ER24 Tablet PO SCH ×2 (09:06→16:55)
[2017-05-04] MEDS: Insulin LISPRO 300 Unit/3 mL Inj SUBQ SCH ×4 (09:11→21:15)
[2017-05-04] MEDS: Furosemide 10 mg/mL 4 mL Inj IVPUSH SCH ×2 (10:26→21:03)
--- NOTE | 2017-05-04 13:11 | NUR ---
HOME HEALTH NEW REFERRAL : Following up on Home Health and companies able to accept medicaid products. [facility] is working on patients information and sending to clinical supervisor assembling for review. Gave access to [facility]. Addendum: 05/04/17 at 1617 by ANGELA FISHER CM [facility] is unable to accept patient at this time. [facility] is unable to accept patient at this time they do not have a contract with [facility] is unable to accept patient at this time as they do not have a contract with [facility]
[2017-05-04] MEDS: MeTOProlol XL 25 mg ER24 Tablet PO SCH ×2 (13:36→21:04)
--- NOTE | 2017-05-04 13:36 | PCM.PNMED ---
Subjective Date of Service May 04, 2017 Subjective Subjective: Patient states that she is feeling more depressed today than previous, partially due to her discussion concerning palliative care. She states that she will continue to consider the various options however she is not ready to make a decision at this point. Events Overnight: No acute events overnight. ROS: Denies fever/chills, nausea/vomiting, headache, weakness, abdominal pain, chest pain, shortness of breath, increased swelling in hands or feet. Exam Vital Signs Vital Sign - Last Date Time Temp Pulse Resp B/P Pulse Ox O2 Delivery O2 Flow Rate FiO2 05/04/17 12:39 36.8 103 18 160/84 93 High Flow 05/04/17 11:33 30 05/04/17 08:04 35 Intake and Output 05/03/17 05/03/17 05/04/17 Cumulative From/Thru 15:00 23:00 07:00 04/25/17 21:12 - 05/04/17 06:55 Intake Total 224 ml 950 ml 869 ml 03510 ml Output Total 1500 ml 850 ml 39830 ml Balance 224 ml -550 ml 19 ml 1635 ml Intake Oral 840 ml 760 ml 69579 ml IV Total 224 ml 110 ml 109 ml 7527 ml Output Urine Total 1500 ml 850 ml 89298 ml Stool Total 1400 ml Urine/Stool Mix 450 ml # Voids 11 # Bowel Movements 1 7 Exam General: No acute distress, well-developed, well-nourished Head: Normocephalic, atraumatic. External ears without defect. Eyes: Pupils equal, round, and reactive to light and accommodation. Anicteric sclerae, moist conjunctivae. Neck: Normal range of motion, no lymphadenopathy noted Cardiovascular: Regular rate and rhythm with mild systolic murmur, rubs, or gallops appreciated Pulmonary: Decreased diffusely breath sounds, wheezes, or rhonchi. Normal respiratory effort with no use of accessory muscles. Abdomen: Bowel tones present. Soft, nontender, nondistended. Extremities: Obvious clubbing, no cyanosis or edema Skin: Normal temperature, turgor, and texture; no rash, ulcers, or subcutaneous nodules appreciated. Neurological: Cranial nerves grossly intact. Reflexes, coordination, and sensory function within normal limits. Normal muscle strength, tone, and bulk. Psychiatric: Teary-eyed, Depressed mood and labile affect. Alert and oriented to person, place, and time IVs and Medications IV Fluids 100 mL normal saline diluted IV medications. Medications Reviewed: Medications were reviewed in detail Medications High-risk medications include: Methadone Ativan Hayes Xarelto Lab and Diagnostics Result Diagram: 05/04/17 0345 05/04/17 0345 X-Rays, CTs and MRIs 04/25/17 - X-RAY CHEST ONE VIEW, PORTABLE IMPRESSION: Diffuse interstitial prominence. Differential considerations include pulmonary edema, ARDS, or pneumonitis. Approved by: Penelope Granados M.D. on 04/25/2017 at 22:19 04/26/17 - CT BRAIN WITHOUT CONTRAST IMPRESSION: -No acute intracranial abnormality. 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 Approved by: Jens Jarrell M.D. on 04/26/2017 at 7:26 . Additional Diagnostics 04/28/17 - EGD & COLONOSCOPY w/BIOPSIES. ENDOSCOPIC DIAGNOSES: 1. Mild to moderate gastropathy. 2. Duodenal submucosal lesion, question lipoma? 3. Noncontiguous segmental colitis. IBD is within the differential but overall the appearance suggested ischemic change. 4. Hemorrhoids. 5. Otherwise no sign of any recent or active gastrointestinal hemorrhage. RECOMMENDATIONS: 1. Await histopathology. 2. Advance diet as tolerated. 3. If Helicobacter is found, it will need to be eradicated with standard triple therapy. 4. The patient would be encouraged to maintain adequate outpatient hydration and normal blood pressure, and maintain a regular fiber regimen for soft regular stools. 5. From a GI standpoint, the patient can be discharged home at the discretion of the patient's primary service. Tonny Vital MD 04/28/17 9433 Assessment & Plan Rebeca Casarez is a 56-year-old female with extensive medical history including COPD, interstitial lung disease, depression, anxiety, and diabetes mellitus type II insulin using who presented to the ED via EMS due to altered mental status, feeling weak and fatigued. In the ED she was found to have melena and her H/H has fallen from 13 to 9 in approximately 2 weeks since her last admission. Acute on chronic respiratory failure, with hypoxia Multifactorial etiology, possibly secondary to pneumonia now resolved, patient has a long history of DIP and continues to smoke at home, pulmonology suggests possible CHF exacerbation although this has not been confirmed on echo. -Pt currently on high flow oxygen, FIO2 32 with flow of 40L -Scheduled duo nebs every 4 hours while awake and albuterol nebs when necessary -Respiratory working on getting Trilogy approved for her home use -Pulmonology consulted, following -Continue to cover for possible infectious process with IV Zosyn through 05/04 per ID recs. -Antibiotics discontinued, ID signed off 05/04 -Continue with IV Lasix 40 BID for possible fluid overload -Continue 60 IV Solu-Medrol BID Diabetes mellitus type II insulin using, present on admission. Chronic. - Continue Glargine 10 units at night - High dose correctional Upper GI bleed, present on admission. Acute. Resolved. - H/H currently stable - Continue Protonix 40 mg PO BID - continue to trend - Xarelto restarted Acute kidney injury, present on admission. Acute. Resolved - Possibly due to dehydration and questionable med usage, as she had a significant Nephrology work up in late February - Creatinine now within normal limits - Avoid nephrotoxic medications - Markedly improved Possible Toxic metabolic encephalopathy secondary to amphetamine use, resolved - Encephalopathy may be multifactorial, however, patient has previous mitra of methaphatime use - Picking type ulcerative lesions of face and forearms, Utox was positive for methamphetamine on admission - Patient admits to use at home Hypertension, present on admission. Chronic. - Hold Lisinopril 30mg daily - Patient started on metoprolol succinate 25 mg twice a day Hyperlipidemia, present on admission. Chronic. - Continue atorvastatin 20 mg at night COPD, present on admission. Chronic. - Continue solumedrol 60mg IV BID - Continue DuoNeb and albuterol inhalers as needed GERD, present on admission. Chronic. -Currently on Protonix 40 mg by mouth twice a day Chronic pain, present on admission. Chronic. - Continue gabapentin 600 mg twice daily, 300 mg at noon - Continue methadone 70 mg daily, [place] now RX'd for breakthrough given refractory symptoms. History of DVT, present on admission. Chronic. - Restart Xarelto 20mg Depression, present on admission. Chronic - Continue mirtazapine 15 mg at night - Continue fluoxetine 40 mg daily Anxiety, present on admission. Chronic. - Continue Prazosin 4mg nightly as needed - Continue hydroxyzine 50mg QID as needed - Continue propranolol 10mg TID as needed Tobacco Use Disorder, present on admission. Chronic. - Nicotine patch as needed - Cessation counseled; declined PRN Medications - Acetaminophen as needed for mild pain/fever/headache - Bowel regimen as needed - Antiemetic as needed Disposition: Pt will likely require 5-7 more days of in patient care before discharge. Pain Evaluation: Adequate Pain Control GI Prophylaxis: Proton Pump Inhibitor VTE Mechanical Devices: Intermittant Pneumatic CD Resuscitation Status: CPR: Attempt Resuscitation GI Prophylaxis: Proton Pump Inhibitor VTE Mechanical Devices: Intermittant Pneumatic CD Resuscitation Status: CPR: Attempt Resuscitation Attending Statement The patient was seen and examined together with Dr. Levi on 05/04/17 and I have added additional information to the note above. David Levi DO May 04, 2017 13:36 Mercedes Valle DO May 07, 2017 13:15
--- NOTE | 2017-05-04 14:19 | NUR ---
NUTRITION IP diabetes consult received. Pt recently received DM ed on 04/12/17 & 04/13/17 with glucometer provided. Pt with a recent A1c of 6.0 (02/20/17) does not meet inpatient diabetes education criteria at this time.
--- NOTE | 2017-05-04 16:36 | NUR ---
Social Work: Continued Discharge Planning/Multidisciplinary Rounds D: Pt discussed in multidisciplinary rounds; the patient is not yet medically stable for discharge and still on high flow 02. The patient is a very high readmit risk and has numerous admissions for her respiratory process. CERAMIC RESEARCH ENGINEER requested reliability specialist call all the home health companies who service [facility] to determine if they might be able to accept the patient with her Jha and D[facility]. At this time the only company who is contracted with [facility] is [facility] and they are unable to accept the patient at this time due to her psychosocial factors. CERAMIC RESEARCH ENGINEER staff pt's case with resident provider. He has spoken with the patient at length about her diagnosis and the possibility of going on hospice to avoid her frequent admissions. The patient is receptive to this idea and would like a hospice informational visit. Resident provider has placed a CM order to coordinate a hospice informational visit. CERAMIC RESEARCH ENGINEER acknowledges order and has placed a referral to hospice of [facility] for an info visit. CERAMIC RESEARCH ENGINEER to await return phone call to determine when this visit can be arranged. A: Pt who is presently on high flow 02. P: Evolving; CERAMIC RESEARCH ENGINEER to continue to follow to assess for discharge needs and coordinate with [facility] for an informational visit and further discharge planning needs. OSKAR Foy
--- NOTE | 2017-05-04 18:18 | NUR ---
High flow/CBGs/BP High flow set at 40L @ 30% currently. Unable to tolerate 35% with desats to the low 80s. Currently tolerating fine with occasional desats to low 80s but able to recover quickly with deep breathing encouragement. CBGs 143. 165, 200. Insists on having ice cream in the afternoon despite education from RN. One dose of metoprolol 25mg given this afternoon for BP 160/84. BP came down to 133/88.
--- NOTE | 2017-05-04 18:46 | PROG NOTE ---
[address] [address] PROGRESS NOTE PATIENT: JONO RODNEY : 1960 MR#: [id number] ADMIT: 04/26/2017 JOB ID: [id number] DATE: 05/04/2017 PULMONARY FOLLOWUP NOTE: PROBLEM LIST: 1. Acute exacerbation of interstitial lung disease. 2. DIP. 3. Nicotine addiction. 4. Obesity. 5. DVT treated with rivaroxaban. SUBJECTIVE: Breathing more comfortably. Still feels a bit short of breath and dyspneic with relatively minimal exertion. Essentially had no sputum production. Good appetite. OBJECTIVE: Temperature 37.2, pulse 105, respiratory rate 18, blood pressure 133/88. Currently on FiO2 of 0.3 with high-flow of 30 L a minute, O2 sat running at 94%. General appearance: No acute distress. Moving around easily. Speaking easily. Chest: Clear anterolaterally. Heart: Regular rhythm. Heart tones normal. Abdomen: Soft. Bowel tones present. LABORATORY: Laboratory data shows a white count of 15,300 with significant neutrophilia. Hemoglobin stable at 10.8, platelet count stable at 454,000. Sodium 144, potassium 4, chloride 95, CO2 is 31, BUN 35, creatinine 0.85. Calcium 8.7 with albumin of 3.5. Total bilirubin normal at 0.2. AST normal at 23, ALT mildly elevated at 34, alkaline phos normal at 88. Procalcitonin 0.05, down from 0.12 48 hours previously. Nasopharyngeal swab for respiratory viral panel by PCR is negative. ASSESSMENT: Acute on chronic hypoxemia secondary to multiple factors including DIP, nicotine addiction, and substance abuse. Doing quite a bit better. Oxygenation is improving. Feeling better. Minimal to no phlegm. Able to take deeper breaths without difficulty. Currently on high-flow system. I would think by tomorrow she could be changed over to nasal prongs or OxyMask and see how she does. Currently on low levels of end-expiratory pressure and I think with a slightly higher FiO2 the lungs could be reasonably easily oxygenated. Continue with the current regimen with regard to her pulmonary medications which include nebulized DuoNeb. In addition, continue the diuresis. Doing rather well. Expect that she can be switched to a simpler nasal O2 delivery system in the morning. PLAN: 1. Continue present regimen. 2. Switch to nasal prongs or OxyMask in the a.m. going for a goal of about 90%.
[2017-05-04] MEDS: Insulin GLARgine 100 Unit/mL Syringe SUBQ SCH (21:05)
[2017-05-05] VITALS (11 sets, daily range): BP systolic 139–162; BP diastolic 70–82; PULSE 74–103; RESP 16–22; O2SAT 89–96
[2017-05-05] MEDS: Albuterol-Ipratropium 3 mL Inhalation Solution NEB SCH ×5 (00:17→12:36)
[2017-05-05] MEDS: MethylprednisoLONE Sodium Succinate 40 mg/mL Inj IVPUSH SCH ×2 (01:03→08:26)
[2017-05-05] MEDS: LORazepam 1 mg Tablet PO PRN ×3 (01:03→20:30)
[2017-05-05] MEDS: HYDROcodone-APAP 10-325 mg PO PRN ×3 (01:04→16:53)
[2017-05-05 03:06] LABS: BASOPHILS % (AUTO) 0.1 % (0-3); EOSINOPHILS % (AUTO) 0.1 % (0-5); MONOCYTES % (AUTO) 5.6 % (4-12); Mean Corpuscular Hemoglobin 27.5 pg (27.0-35.0); Mean Corpuscular Volume 89.9 fL (81-100); Platelet Count 443 bil/L (150-400)
--- NOTE | 2017-05-05 05:55 | NUR ---
Mentation Pt. a/o, mildly anxious. Indicated to have an emotional day, and decisions to make are stressful. Repeated requests for ice cream from any staff that entered her room. Reminded and reinforced need to have a regulated sugar intake. Education given once again on diabetic diet needs to control elevated sugar levels BG 246. Patient states I dont care, nobody regulates me at home and why bother here. Encouraged other choices, still resistant and wants her own choices of food. VSS, Tele: Sinus Tach 90s to 100s.
[2017-05-05] MEDS: Insulin LISPRO 300 Unit/3 mL Inj SUBQ SCH ×4 (08:00→22:00)
[2017-05-05] MEDS: MeTOProlol XL 25 mg ER24 Tablet PO SCH ×2 (08:32→20:30)
[2017-05-05] MEDS: Pantoprazole 40 mg ER24 Tablet PO SCH ×2 (08:33→15:56)
[2017-05-05] MEDS: Furosemide 10 mg/mL 4 mL Inj IVPUSH SCH ×2 (08:41→20:30)
--- NOTE | 2017-05-05 13:30 | PCM.PNMED ---
Subjective Date of Service May 05, 2017 Subjective Subjective: Patient states that she is feeling better today compared to previous. Mood and affect appears more energetic. Yesterday had a long discussion with the patient about hospice care in which she could possibly be managed at home on high flow oxygen. However, patient today seems like she does not want to participate in hospice at this time. Events Overnight: No acute events overnight. ROS: Denies fever/chills, nausea/vomiting, headache, weakness, abdominal pain, chest pain, shortness of breath, increased swelling in hands or feet. Exam Vital Signs Vital Sign - Last Date Time Temp Pulse Resp B/P Pulse Ox O2 Delivery O2 Flow Rate FiO2 05/05/17 13:03 82 18 150/71 91 high flow 40 05/05/17 08:44 36.4 05/05/17 08:08 35 Intake and Output 05/04/17 05/04/17 05/05/17 Cumulative From/Thru 15:00 23:00 07:00 04/25/17 21:12 - 05/05/17 06:26 Intake Total 118 ml 517 ml 25515 ml Output Total 1300 ml 76366 ml Balance 118 ml -783 ml 970 ml Intake Oral 400 ml 15938 ml IV Total 118 ml 117 ml 7762 ml Output Urine Total 1300 ml 51020 ml Stool Total 1400 ml Urine/Stool Mix 450 ml # Voids 11 # Bowel Movements 1 8 Exam General: No acute distress, well-developed, well-nourished Head: Normocephalic, atraumatic. External ears without defect. Eyes: Pupils equal, round, and reactive to light and accommodation. Anicteric sclerae, moist conjunctivae. Neck: Normal range of motion, no lymphadenopathy noted Cardiovascular: Regular rate and rhythm with mild systolic murmur, rubs, or gallops appreciated Pulmonary: Diffusely decreased breath sounds, wheezes, or rhonchi. Normal respiratory effort with no use of accessory muscles. Abdomen: Bowel tones present. Soft, nontender, nondistended. Extremities: Obvious clubbing, no cyanosis or edema Skin: Normal temperature, turgor, and texture; no rash, ulcers, or subcutaneous nodules appreciated. Neurological: Cranial nerves grossly intact. Reflexes, coordination, and sensory function within normal limits. Normal muscle strength, tone, and bulk. Psychiatric: Normal mood and affect. Alert and oriented to person, place, and time IVs and Medications IV Fluids 120 mL normal saline delivered with IV medications. Medications Reviewed: Medications were reviewed in detail Medications High risk medications include: Ativan Hydrocodone Methadone Xarelto Lab and Diagnostics Result Diagram: 05/05/1724405/05/17244 X-Rays, CTs and MRIs 04/25/17 - X-RAY CHEST ONE VIEW, PORTABLE IMPRESSION: Diffuse interstitial prominence. Differential considerations include pulmonary edema, ARDS, or pneumonitis. Approved by: Penelope Granados M.D. on 04/25/2017 at 22:19 04/26/17 - CT BRAIN WITHOUT CONTRAST IMPRESSION: -No acute intracranial abnormality. 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 Approved by: Jens Jarrell M.D. on 04/26/2017 at 7:26 . Additional Diagnostics 04/28/17 - EGD & COLONOSCOPY w/BIOPSIES. ENDOSCOPIC DIAGNOSES: 1. Mild to moderate gastropathy. 2. Duodenal submucosal lesion, question lipoma? 3. Noncontiguous segmental colitis. IBD is within the differential but overall the appearance suggested ischemic change. 4. Hemorrhoids. 5. Otherwise no sign of any recent or active gastrointestinal hemorrhage. RECOMMENDATIONS: 1. Await histopathology. 2. Advance diet as tolerated. 3. If Helicobacter is found, it will need to be eradicated with standard triple therapy. 4. The patient would be encouraged to maintain adequate outpatient hydration and normal blood pressure, and maintain a regular fiber regimen for soft regular stools. 5. From a GI standpoint, the patient can be discharged home at the discretion of the patient's primary service. Tonny Vital MD 04/28/17 5851 Assessment & Plan Rebeca Casarez is a 56-year-old female with extensive medical history including COPD, interstitial lung disease, depression, anxiety, and diabetes mellitus type II insulin using who presented to the ED via EMS due to altered mental status, feeling weak and fatigued. Acute on chronic respiratory failure, with hypoxia Multifactorial etiology, possibly secondary to pneumonia now resolved, patient has a long history of DIP and continues to smoke at home, pulmonology suggests possible CHF exacerbation although this has not been confirmed on echo. -Pt currently on oxygen nasal cannula, approximately 4 L -Duo nebs when necessary -Respiratory working on getting Trilogy approved for her home use -Pulmonology consulted, following -Antibiotics discontinued, ID signed off 05/04 -Continue with IV Lasix 40 BID for possible fluid overload -Continue 60 IV Solu-Medrol BID Diabetes mellitus type II insulin using, present on admission. Chronic. - Continue Glargine 10 units at night - High dose correctional - Diabetic diet - Diabetes counseling Upper GI bleed, present on admission. Acute. Resolved. - H/H currently stable - Continue Protonix 40 mg PO BID - Continue to trend - Xarelto restarted Acute kidney injury, present on admission. Acute. 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 Chronic. - Hold Lisinopril 30mg daily - Patient started on metoprolol succinate 25 mg twice a day Hyperlipidemia, present on admission. Chronic. - Continue atorvastatin 20 mg at night COPD, present on admission. Chronic. - Continue solumedrol 60mg IV BID - Continue DuoNeb and albuterol inhalers as needed GERD, present on admission. Chronic. -Currently on Protonix 40 mg by mouth twice a day Chronic pain, present on admission. Chronic. - Continue gabapentin 600 mg twice daily, 300 mg at noon - Continue methadone 70 mg daily, [place] now RX'd for breakthrough given refractory symptoms. History of DVT, present on admission. Chronic. - Continue Xarelto 20mg Depression, present on admission. Chronic - Continue mirtazapine 15 mg at night - Continue fluoxetine 40 mg daily Anxiety, present on admission. Chronic. - Continue Prazosin 4mg nightly as needed - Continue hydroxyzine 50mg QID as needed - Continue propranolol 10mg TID as needed Tobacco Use Disorder, present on admission. Chronic. - Nicotine patch as needed - Cessation counseled; declined GI Prophylaxis: Proton Pump Inhibitor VTE Mechanical Devices: Intermittant Pneumatic CD Resuscitation Status: CPR: Attempt Resuscitation Attending Statement The patient was seen and examined together with Dr. Levi on 05/05/17 and I have added additional information to the note above. David Levi DO May 05, 2017 13:29 Mercedes Valle DO May 06, 2017 07:34 discharge. Pain Evaluation: Adequate Pain Control GI Prophylaxis: Proton Pump Inhibitor VTE Mechanical Devices: Intermittant Pneumatic CD Resuscitation Status: CPR: Attempt Resuscitation GI Prophylaxis: Proton Pump Inhibitor VTE Mechanical Devices: Intermittant Pneumatic CD Resuscitation Status: CPR: Attempt Resuscitation David Levi DO May 05, 2017 13:29
--- NOTE | 2017-05-05 16:12 | NUR ---
NUTRITION CONSULT Consult requested per (Tori) re diabetic diet instruction. Spoke with pt at length re diabetic diet, recent diagnosis of diabetes and initiation of long/short acting insulin 1 mos. ago. Pt confused re how to use insulin/test blood sugar and what to eat. Reviewed sources of carbohydrates in diet, meal planning, risks of hypoglycemia and demonstrated use of glucometer, pt able to recall how to use. Demonstrated proper use of insulin pen/correct disposal of needles. Pt will need re-inforcement re insulin instruction. Pt interested in outpatient referral, will refer re insulin management. MOC secondary set up man sent as well.
--- NOTE | 2017-05-05 16:17 | NUR ---
DM consult/mentation/Respiratory Pt was happy to get her diabetic consult today. She also had a hospice consult. She said to this RN "I decided I'm not ready to . It's just not my time." Appeared less anxiety ridden today, less tearful than yesterday. Some forgetfulness noted. She thought her breakfast was her lunch. High flow was replaced with 4L NC today and pt has been tolerating well. Sats in the low 90s.
--- NOTE | 2017-05-05 17:42 | NUR ---
Social Work: Readiness for Discharge/Multidisciplinary Rounds D: Pt discussed in multidisciplinary rounds; the patient is scheduled to meet with hospice for an informational visit this morning at 11:00am. Medical team continues attempts to wean the pts 02. ACTION INSTALLER spoke with BRAULIO García MSW after the informational visit. The patient is not interested in hospice services at this time but was receptive to information. This ACTION INSTALLER met with the patient at bedside to confirm her discharge plan knowing that she does not want hospice. Pt agrees with her home plan and states "thats where I want to be." Patient understands that she is not a candidate for any home health and will discharge home without supportive services for medical care. She states that she understands this. A:Pt who lives in [place], alone. Uses a w/c for ambulating due to hip pain. I with transfers. P: Anticipate pt to discharge home via POV (parents) once medically stable; ACTION INSTALLER to continue to follow to assess for further unmet needs. OSKAR Foy
[2017-05-05] MEDS ORDERED: Albuterol-Ipratropium 3 mL Inhalation Solution NEB PRN (18:15)
[2017-05-05] MEDS ORDERED: MethylprednisoLONE Sodium Succinate 40 mg/mL Inj IVPUSH SCH (20:30)
[2017-05-05] MEDS: Insulin GLARgine 100 Unit/mL Syringe SUBQ SCH (21:00)
[2017-05-06] VITALS (7 sets, daily range): BP systolic 120–138; BP diastolic 69–84; PULSE 66–77; RESP 18–20; O2SAT 89–95
[2017-05-06] MEDS: LORazepam 1 mg Tablet PO PRN ×4 (02:42→20:23)
[2017-05-06] MEDS: HYDROcodone-APAP 10-325 mg PO PRN ×2 (02:54→20:23)
[2017-05-06 03:00] LABS: BASOPHILS % (AUTO) 0.1 % (0-3); EOSINOPHILS % (AUTO) 0.1 % (0-5); MONOCYTES % (AUTO) 4.5 % (4-12); Mean Corpuscular Hemoglobin 27.3 pg (27.0-35.0); Mean Corpuscular Volume 88.7 fL (81-100); NEUTROPHILS % (AUTO) 84.3 % (40-74); Platelet Count 510 bil/L (150-400)
--- NOTE | 2017-05-06 06:07 | NUR ---
Oxygenation/Rest Continues to tolerate 02 @ 4L NC - Sp02 89-93%. Pt. more guarded about interaction this shift, more of a depressed affect. Indicates readyness to go home. Requested Ice Cream, and redirected to diabetic needs to balance BG levels. No further request or c/o of not receiving food choices. Rested for extended period, up to BSC prn. IV R FA infiltrated with medical scheduler. Restarted new line to L hand, denies pain and patent. VSS. Tele: SR in 's.
[2017-05-06] MEDS: Insulin LISPRO 300 Unit/3 mL Inj SUBQ SCH ×4 (08:00→21:47)
[2017-05-06] MEDS: MeTOProlol XL 25 mg ER24 Tablet PO SCH ×2 (09:53→20:22)
[2017-05-06] MEDS: Pantoprazole 40 mg ER24 Tablet PO SCH ×2 (09:53→18:33)
[2017-05-06] MEDS: predniSONE 20 mg Tablet PO SCH ×2 (09:54→20:22)
[2017-05-06] MEDS: Furosemide 10 mg/mL 4 mL Inj IVPUSH SCH ×2 (09:55→20:22)
--- NOTE | 2017-05-06 12:44 | NUR ---
Blood Glucose AM 100 Afternoon 100 Pt sleeping most of day. Care continues.
--- NOTE | 2017-05-06 15:02 | NUR ---
NUTRITION ASSESSMENT: ASSESS: 56YO F admit with acute on chronic respiratory failure. Hospice discussed, pt declines. PMHX: COPD,Lung disease, depression, DM,CVA, polysubstance abuse DIET: Diabetic. PO 100%; RN notes pt often makes inappropriate food choices LABS: Glu 163, BUN 42, Alb 3.6 MEDS: Pt received recent prescription for Lantus pen/Humalog, has not started yet r/t confusion over use. GI:2 BM 05/05 WEIGHT: 83.7kg; admit:77.2kg BMI:31.7= Obese EST.NEEDS: COPD/OBESITY (25-30kcal/kg;1.5-1.8g/kg IBW pro) Kcal: 6450-4508 Pro: 80-100g NUTRITION DIAGNOSIS: (1) Food and nutrition related knowledge deficit related to diabetic diet as evidenced by inappropriate food choices, elevated blood glucose. INTERVENTION: (1) Diabetic diet education/ Insulin instruction provided on 05/06. MOC medical device assembler /Outpatient dm education program made for additional insulin teaching. MONITOR/EVALUATE: PO intake, lab values. F/U per low risk.
--- NOTE | 2017-05-06 17:11 | PCM.PNMED ---
Subjective Date of Service May 06, 2017 Subjective Subjective: Patient reports feeling more positively today, she feels better about going home than previous admissions, continues to have some mild depression, and anxiety. Events Overnight: No acute events overnight. ROS: Denies fever/chills, nausea/vomiting, headache, weakness, abdominal pain, chest pain, shortness of breath, increased swelling in hands or feet. Exam Vital Signs Vital Sign - Last Date Time Temp Pulse Resp B/P Pulse Ox O2 Delivery O2 Flow Rate FiO2 05/06/17 16:15 36.8 74 18 120/69 91 Nasal Cannula 3.00 05/05/17 13:03 40 Intake and Output 05/05/17 05/05/17 05/06/17 Cumulative From/Thru 15:00 23:00 07:00 04/25/17 21:12 - 05/06/17 06:18 Intake Total 2130 ml 500 ml 02947 ml Output Total 3100 ml 08361 ml Balance 2130 ml -2600 ml 500 ml Intake Oral 2000 ml 500 ml 13010 ml IV Total 130 ml 7892 ml Output Urine Total 3100 ml 28599 ml Stool Total 1400 ml Urine/Stool Mix 450 ml # Voids 4 5 20 # Bowel Movements 1 9 Exam General: No acute distress, well-developed, well-nourished Head: Normocephalic, atraumatic. External ears without defect. Eyes: Pupils equal, round, and reactive to light and accommodation. Anicteric sclerae, moist conjunctivae. Neck: Normal range of motion, no lymphadenopathy noted Cardiovascular: Regular rate and rhythm with mild systolic murmur, no rubs or gallops appreciated Pulmonary: Clear to auscultation bilaterally with no rales, wheezes, or rhonchi. Normal respiratory effort with no use of accessory muscles. Abdomen: Bowel tones present. Soft, nontender, nondistended. Extremities: Obvious clubbing, no cyanosis or edema Skin: Normal temperature, turgor, and texture; no rash, ulcers, or subcutaneous nodules appreciated. Neurological: Cranial nerves grossly intact. Reflexes, coordination, and sensory function within normal limits. Normal muscle strength, tone, and bulk. Psychiatric: Normal mood and affect. Alert and oriented to person, place, and time IVs and Medications Medications Reviewed: Medications were reviewed in detail Medications High-risk medications include: Methadone Xarelto Percocet Ativan Lab and Diagnostics Result Diagram: 05/06/17 0225 05/06/17 0225 X-Rays, CTs and MRIs 04/25/17 - X-RAY CHEST ONE VIEW, PORTABLE IMPRESSION: Diffuse interstitial prominence. Differential considerations include pulmonary edema, ARDS, or pneumonitis. Approved by: Penelope Granados M.D. on 04/25/2017 at 22:19 04/26/17 - CT BRAIN WITHOUT CONTRAST IMPRESSION: -No acute intracranial abnormality. 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 Approved by: Jens Jarrell M.D. on 04/26/2017 at 7:26 . Additional Diagnostics 04/28/17 - EGD & COLONOSCOPY w/BIOPSIES. ENDOSCOPIC DIAGNOSES: 1. Mild to moderate gastropathy. 2. Duodenal submucosal lesion, question lipoma? 3. Noncontiguous segmental colitis. IBD is within the differential but overall the appearance suggested ischemic change. 4. Hemorrhoids. 5. Otherwise no sign of any recent or active gastrointestinal hemorrhage. RECOMMENDATIONS: 1. Await histopathology. 2. Advance diet as tolerated. 3. If Helicobacter is found, it will need to be eradicated with standard triple therapy. 4. The patient would be encouraged to maintain adequate outpatient hydration and normal blood pressure, and maintain a regular fiber regimen for soft regular stools. 5. From a GI standpoint, the patient can be discharged home at the discretion of the patient's primary service. Tonny Vital MD 04/28/17 1633 Assessment & Plan Rebeca Casarez is a 56-year-old female with extensive medical history including COPD, interstitial lung disease, depression, anxiety, and diabetes mellitus type II insulin using who presented to the ED via EMS due to altered mental status, feeling weak and fatigued. Acute on chronic respiratory failure, with hypoxia Multifactorial etiology, possibly secondary to pneumonia now resolved, patient has a long history of DIP and continues to smoke at home, pulmonology suggests possible CHF exacerbation although this has not been confirmed on echo. -Pt currently on oxygen nasal cannula, approximately 4 L -Duo nebs when necessary -Trilogy suggested for this patient. This patient requires nocturnal and daytime (PRN) volume ventilation. BiPAP is insufficient due to severity of condition. 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 Chronic. - Continue Glargine 10 units at night - High dose correctional - Diabetic diet - Diabetes counseling Upper GI bleed, present on admission. Acute. Resolved. - H/H currently stable - Continue Protonix 40 mg PO BID - Continue to trend - Xarelto restarted Acute kidney injury, present on admission. Acute. 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 Chronic. - Hold Lisinopril 30mg daily - Patient started on metoprolol succinate 25 mg twice a day Hyperlipidemia, present on admission. Chronic. - Continue atorvastatin 20 mg at night COPD, present on admission. Chronic. - Change to solumedrol 60mg PO BID - Continue DuoNeb and albuterol inhalers as needed GERD, present on admission. Chronic. -Currently on Protonix 40 mg by mouth twice a day Chronic pain, present on admission. Chronic. - Continue gabapentin 600 mg twice daily, 300 mg at noon - Continue methadone 70 mg daily, [place] now RX'd for breakthrough given refractory symptoms. History of DVT, present on admission. Chronic. - Continue Xarelto 20mg Depression, present on admission. Chronic - Continue mirtazapine 15 mg at night - Continue fluoxetine 40 mg daily Anxiety, present on admission. Chronic. - Continue Prazosin 4mg nightly as needed - Continue hydroxyzine 50mg QID as needed - Continue propranolol 10mg TID as needed Tobacco Use Disorder, present on admission. Chronic. - Nicotine patch as needed - Cessation counseled; declined Disposition: Patient will require 1-3 more days of inpatient monitoring prior to discharge home. GI Prophylaxis: Proton Pump Inhibitor VTE Prophylaxis: Other (Xarelto) VTE Mechanical Devices: Intermittant Pneumatic CD Resuscitation Status: CPR: Attempt Resuscitation Attending Statement The patient was seen and examined together with Dr. Levi on 05/06/17 and I have added additional information to the note above. David Levi DO May 06, 2017 17:11 Mercedes Valle DO May 07, 2017 13:10
--- NOTE | 2017-05-06 17:47 | NUR ---
Diabetic/Insulin education pt has glucometer, strips, lancets and home insulin pens at bedside able to return demo use of lancets, glucometer and testing blood sugar pt needs reinforcement re: insulin pen use states she is unsure of inuslin frequency, dose and difference between short and long acting reviewed multiple times over 40min; however, pt still not comfortable with information and unable to return demo discussed plan with pt's primary nurse and informed of pt's home meds at bedside it would likely be helpful for primary nurse to assist pt in self-administering insulin doses while admitted; however, pt has not needed coverage "living your life with diabetes" handbook also provided and reviewed pt hopes to discharge 9/9 am discussed plan/options after discharge re: DM outpt education and s/s to report to PCP Addendum: 05/06/17 at 1808 by CHALNIO SANDOVAL RN Amended: Links added.
[2017-05-06] MEDS: Insulin GLARgine 100 Unit/mL Syringe SUBQ SCH (20:28)
--- NOTE | 2017-05-06 22:19 | NUR ---
BS/MENTATION Pt's BS @ HS was 147, 15 units Lantus given, no correctional given. Pt A&Ox3, with occasional forgetfulness. Pt was emotionally distraught about receiving hospice information today. Pt wished to be left alone and was given 1mg Ativan with good results.
[2017-05-07 00:23] VITALS: BP 136/75; PULSE 70; RESP 18; O2SAT 94
[2017-05-07 02:38] LABS: Mean Corpuscular Hemoglobin 27.2 pg (27.0-35.0); Mean Corpuscular Volume 88.9 fL (81-100)
[2017-05-07 04:56] VITALS: BP 175/77; PULSE 70; RESP 18; O2SAT 94
[2017-05-07] MEDS ORDERED: PRED-508 PO (07:22)
[2017-05-07] MEDS: Insulin LISPRO 300 Unit/3 mL Inj SUBQ SCH ×4 (08:00→22:00)
[2017-05-07 09:16] VITALS: BP 144/69; PULSE 94; O2SAT 94
[2017-05-07] MEDS: Pantoprazole 40 mg ER24 Tablet PO SCH ×2 (10:30→15:32)
[2017-05-07] MEDS: predniSONE 20 mg Tablet PO SCH ×2 (10:31→20:25)
[2017-05-07] MEDS: MeTOProlol XL 25 mg ER24 Tablet PO SCH ×2 (10:32→20:26)
[2017-05-07] MEDS: Furosemide 10 mg/mL 4 mL Inj IVPUSH SCH ×2 (10:35→20:26)
[2017-05-07 12:04] VITALS: PULSE 67; RESP 16; O2SAT 92
[2017-05-07 13:01] VITALS: BP 161/78; PULSE 71; RESP 20; O2SAT 93
--- NOTE | 2017-05-07 15:11 | PCM.PNMED ---
Subjective Date of Service May 07, 2017 Subjective Subjective: Patient states that she is feeling well today and is ready to go home. We discussed the importance of staying 1-2 more days to ensure that her oxygen saturations have completely returned back to baseline and are stable. Events Overnight: No acute events overnight. ROS: Denies fever/chills, nausea/vomiting, headache, weakness, abdominal pain, chest pain, shortness of breath, increased swelling in hands or feet. Exam Vital Signs Vital Sign - Last Date Time Temp Pulse Resp B/P Pulse Ox O2 Delivery O2 Flow Rate FiO2 05/07/17 13:01 36.5 71 20 161/78 93 Nasal Cannula 3.00 05/05/17 13:03 40 Intake and Output 05/06/17 05/06/17 05/07/17 Cumulative From/Thru 15:00 23:00 07:00 04/25/17 21:12 - 05/07/17 06:57 Intake Total 760 ml 520 ml 64051 ml Output Total 1600 ml 600 ml 85243 ml Balance -840 ml -80 ml -420 ml Intake Oral 760 ml 300 ml 59536 ml IV Total 220 ml 8112 ml Output Urine Total 1600 ml 600 ml 00771 ml Stool Total 1400 ml Urine/Stool Mix 450 ml # Voids 20 # Bowel Movements 1 1 11 Exam General: No acute distress, well-developed, well-nourished Head: Normocephalic, atraumatic. External ears without defect. Eyes: Pupils equal, round, and reactive to light and accommodation. Anicteric sclerae, moist conjunctivae. Neck: Normal range of motion, no lymphadenopathy noted Cardiovascular: Regular rate and rhythm with 2/6 systolic murmur, no rubs or gallops appreciated Pulmonary: Clear to auscultation bilaterally with the exception of minor wheezes , no rales or rhonchi. Normal respiratory effort with no use of accessory muscles. Abdomen: Bowel tones present. Soft, obese, nontender, nondistended. Extremities: Obvious clubbing, no cyanosis or edema Skin: Normal temperature, turgor, and texture; no rash, ulcers, or subcutaneous nodules appreciated. Neurological: Cranial nerves grossly intact. Reflexes, coordination, and sensory function within normal limits. Normal muscle strength, tone, and bulk. Psychiatric: Normal mood and affect. Alert and oriented to person, place, and time IVs and Medications Medications Reviewed: Medications were reviewed in detail Lab and Diagnostics Result Diagram: 05/07/17 0225 05/07/17 0225 X-Rays, CTs and MRIs 04/25/17 - X-RAY CHEST ONE VIEW, PORTABLE IMPRESSION: Diffuse interstitial prominence. Differential considerations include pulmonary edema, ARDS, or pneumonitis. Approved by: Penelope Granados M.D. on 04/25/2017 at 22:19 04/26/17 - CT BRAIN WITHOUT CONTRAST IMPRESSION: -No acute intracranial abnormality. 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 Approved by: Jens Jarrell M.D. on 04/26/2017 at 7:26 . Additional Diagnostics 04/28/17 - EGD & COLONOSCOPY w/BIOPSIES. ENDOSCOPIC DIAGNOSES: 1. Mild to moderate gastropathy. 2. Duodenal submucosal lesion, question lipoma? 3. Noncontiguous segmental colitis. IBD is within the differential but overall the appearance suggested ischemic change. 4. Hemorrhoids. 5. Otherwise no sign of any recent or active gastrointestinal hemorrhage. RECOMMENDATIONS: 1. Await histopathology. 2. Advance diet as tolerated. 3. If Helicobacter is found, it will need to be eradicated with standard triple therapy. 4. The patient would be encouraged to maintain adequate outpatient hydration and normal blood pressure, and maintain a regular fiber regimen for soft regular stools. 5. From a GI standpoint, the patient can be discharged home at the discretion of the patient's primary service. Tonny Vital MD 04/28/17 1633 Assessment & Plan Rebeca Casarez is a 56-year-old female with extensive medical history including COPD, interstitial lung disease, depression, anxiety, and diabetes mellitus type II insulin using who presented to the ED via EMS due to altered mental status, feeling weak and fatigued. Acute on chronic respiratory failure, with hypoxia Multifactorial etiology, possibly secondary to pneumonia now resolved, patient has a long history of DIP and continues to smoke at home, pulmonology suggests possible CHF exacerbation although this has not been confirmed on echo. -Pt currently on oxygen nasal cannula, approximately 3 L -Duo nebs when necessary -Trilogy suggested for this patient. This patient requires nocturnal and daytime (PRN) volume ventilation. BiPAP is insufficient due to severity of condition. 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 Chronic. - Continue Glargine 10 units at night - High dose correctional - Diabetic diet - Diabetes counseling Upper GI bleed, present on admission. Acute. Resolved. - H/H currently stable - Continue Protonix 40 mg PO BID - Continue to trend - Continue Xarelto Acute kidney injury, present on admission. Acute. Resolved - Possibly due to dehydration and questionable med usage, as she had a significant Nephrology work up in late February - Creatinine now within normal limits - Avoid nephrotoxic medications - Markedly improved Possible Toxic metabolic encephalopathy secondary to amphetamine use, resolved - Encephalopathy may be multifactorial, however, patient has previous mitra of methaphatime use - Picking type ulcerative lesions of face and forearms, Utox was positive for methamphetamine on admission - Patient admits to use at home Hypertension, present on admission. Chronic. - Hold Lisinopril 30mg daily - Patient started on metoprolol succinate 25 mg twice a day Hyperlipidemia, present on admission. Chronic. - Continue atorvastatin 20 mg at night COPD, present on admission. Chronic. - Change to solumedrol 60mg PO BID - Continue DuoNeb and albuterol inhalers as needed GERD, present on admission. Chronic. -Currently on Protonix 40 mg by mouth twice a day Chronic pain, present on admission. Chronic. - Continue gabapentin 600 mg twice daily, 300 mg at noon - Continue methadone 70 mg daily, [place] now RX'd for breakthrough given refractory symptoms. History of DVT, present on admission. Chronic. - Continue Xarelto 20mg Depression, present on admission. Chronic - Continue mirtazapine 15 mg at night - Continue fluoxetine 40 mg daily Anxiety, present on admission. Chronic. - Continue Prazosin 4mg nightly as needed - Continue hydroxyzine 50mg QID as needed - Continue propranolol 10mg TID as needed Tobacco Use Disorder, present on admission. Chronic. - Nicotine patch as needed - Cessation counseled; declined PRN Medications - Acetaminophen as needed for mild pain/fever/headache - Bowel regimen as needed - Antiemetic as needed Disposition: Pt will likely require 1-3 more days of in patient care before discharge. The patient is still receiving diabetes education and is being encouraged to do all of her insulin dosages as well as blood sugar checks. The patient's oxygen levels seem to be returning to baseline however we will continue to monitor the patient at this time and encouraged her to take a shower and to get moving so that we can see what her oxygen does with exertion. GI Prophylaxis: Proton Pump Inhibitor VTE Prophylaxis: Other (Xarelto) VTE Mechanical Devices: Intermittant Pneumatic CD Resuscitation Status: CPR: Attempt Resuscitation Attending Statement The patient was seen and examined together with Dr. Levi on 05/07/17 and I have added additional information to the note above. David Levi DO May 07, 2017 15:11 Mercedes Valle DO May 07, 2017 16:20
[2017-05-07] MEDS: LORazepam 1 mg Tablet PO PRN (15:32)
[2017-05-07] MEDS: HYDROcodone-APAP 10-325 mg PO PRN (15:32)
--- NOTE | 2017-05-07 18:09 | NUR ---
DM education Pt needing more education on using her Glucometer. Printed protocol for patient and explained several times, pt unable to check her blood sugar, and safely draw up insulin. When asked pt to draw up 2units several times and asked to teach back, pt stating "do I draw 20units?". Will continue education through patient stay however at this time pt is unable and unsafe to do it herself. Will report to oncoming RN.
[2017-05-07 20:16] VITALS: BP 127/75; PULSE 80; RESP 20; O2SAT 91
[2017-05-07] MEDS: Insulin GLARgine 100 Unit/mL Syringe SUBQ SCH (20:25)
[2017-05-08] VITALS (7 sets, daily range): BP systolic 114–154; BP diastolic 63–80; PULSE 65–80; RESP 13–24; O2SAT 86–95
--- NOTE | 2017-05-08 05:28 | NUR ---
Dietary Request/ Anxiety/ Rest Pt continued to request ice cream throughout the beginning of shift. Pt was educated and reminded that ice cream is not a gracia food selection since the pt is diabetic. Pt showed anxiety over being discharged and having to try and check BGs and provide self with insulin. Pt was encouraged to look over paperwork that the dayshift RN printed that shows the BG ranges and how much insulin to give. Pt was able to rest throughout most of the shift with the exception of when VS were taken. Pt did desat often into the low 80s when sleeping even when wearing 3L NC.
[2017-05-08] MEDS: HYDROcodone-APAP 10-325 mg PO PRN ×2 (06:12→16:59)
[2017-05-08] MEDS: Insulin LISPRO 300 Unit/3 mL Inj SUBQ SCH ×4 (08:00→22:15)
[2017-05-08] MEDS: Furosemide 10 mg/mL 4 mL Inj IVPUSH SCH ×2 (08:21→21:53)
[2017-05-08] MEDS: MeTOProlol XL 25 mg ER24 Tablet PO SCH ×2 (08:24→21:54)
[2017-05-08] MEDS: Pantoprazole 40 mg ER24 Tablet PO SCH ×2 (08:24→16:59)
[2017-05-08] MEDS: predniSONE 20 mg Tablet PO SCH ×2 (08:24→21:54)
[2017-05-08] MEDS: LORazepam 1 mg Tablet PO PRN ×2 (09:53→17:00)
--- NOTE | 2017-05-08 11:57 | NUR ---
Evaluation completed. Please go to "Notes" then click on "Assessments and Notes" (bottom left corner of screen). Then select appropriate discipline tab on top of screen.
--- NOTE | 2017-05-08 15:42 | NUR ---
Dietary Non-Compliance 0945 - Discussed her care with Dr. West and the rest of the multidisciplinary care team during morning rounds. He said that he wanted Physical Therapy to walk her and test her SpO2. 1100 - Luann from Physical Therapy said she had the patient walk in her room and that her SpO2 dropped into the 70%s on 2L of O2 via nasal cannula. She said it took the patient a few minutes for her SpO2 to return to 88-92%. 1144 - Max paged Dr. West to call back for a PT update. 1245 - Dr. West called back and was notified over the phone about her PT and SpO2 dropping. He said she would not be discharging today and to continue to educate her about her blood glucose checks and insulin administrations. 1251 - She adamantly insisted on having ice cream and refusing her diet. She said, "I'm 56 years old for Richard's sake. I'm not a baby. I can make my own decisions. I'm so addicted to ice cream." She signed the dietary refusal form. Dr. Santana was cook paged and informed of her non-compliance and that the form needed to have an MD signature. She was given 2 cups of sherbet per her request. She requested another one later. It was given to her, but she was told that this was all she could have for the rest of this shift as the supply in the nutrition room was getting low and other patient's needed to be able to have some too. She was in agreement with this plan. 8002 - Dr. West came by to talk to the patient about her diet and the form. She agreed to follow her diet from now on. The un-signed form was placed back in her chart. Dr. West was notified that she had a total of 3 cups of [address]bet. Per Dr. West orders nursing staff will take her blood glucose soon and show her how high her blood sugars rise after eating sherbet. Care continues. Addendum: 05/08/17 at 1704 by GARRET YA RN 1701 - Blood glucose was 301. Explained to her that this is likely from her eating the sugary sherbet. She said, "She told me that once I stop taking the prednisone it will get better." Explained to her that while her blood glucose may improve some without the prednisone she is still a diabetic and will have to be careful to not eat sugar in her diet. She did not respond to this. She did ask a few minutes later how much insulin this nurse was giving her. Informed her it was 10 units. She made no comment. Care continues.
--- NOTE | 2017-05-08 20:27 | PCM.PNMED ---
Subjective Date of Service May 08, 2017 Subjective Overnight: Patient continues to desat down to the low 80s overnight while on 3 L Today: The patient states that she will be compliant with her prednisone taper. The patient does not like being placed on a diabetic diet and states that she is only diabetic currently because of her chronic prednisone use. 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 The patient's states she is feeling better she feels ready to be discharged within the next day. Exam Vital Signs Vital Sign - Last Date Time Temp Pulse Resp B/P Pulse Ox O2 Delivery O2 Flow Rate FiO2 05/08/17 06:01 36.6 71 24 143/80 86 Nasal Cannula 3.00 05/05/17 13:03 40 Intake and Output 05/07/17 05/07/17 05/08/17 Cumulative From/Thru 15:00 23:00 07:00 04/25/17 21:12 - 05/08/17 03:55 Intake Total 760 ml 65217 ml Output Total 1300 ml 59695 ml Balance -540 ml -960 ml Intake Oral 760 ml 76677 ml IV Total 8112 ml Output Urine Total 1300 ml 38879 ml Stool Total 1400 ml Urine/Stool Mix 450 ml # Voids 20 # Bowel Movements 11 Exam General: Obese chronically ill-appearing middle-aged female, in no acute respiratory distress sitting up in bed Eyes: Pupils equal round and reactive to light, extraocular motion intact, anicteric sclera, noninjected conjunctiva HENT: Normocephalic atraumatic, moist mucous membranes without central cyanosis , oropharynx clear without purulent exudate or cobblestoning mucosa Neck: Supple, trachea midline, without thyromegaly or JVD Cardiovascular: Regular rate and regular rhythm, systolic ejection murmur noted at right upper sternal border, no rubs or gallops noted Lungs: Mild coarse breath sounds noted bilaterally in the posterior and axillary lung [place] without wheezing or rhonchi Abdomen: Soft, nontender, nondistended, tympanic to percussion, normal active bowel sounds, without organomegaly Extremities: No cyanosis clubbing or edema noted, pulses intact bilaterally at dorsalis pedis and radial : No Mckeon catheter in place Skin: Warm and dry Neuro: Nonfocal neurologic exam Psych: Normal mood and affect IVs and Medications Medications Reviewed: Medications were reviewed in detail Lab and Diagnostics Result Diagram: 05/08/1721905/08/17 022 X-Rays, CTs and MRIs 04/25/17 - X-RAY CHEST ONE VIEW, PORTABLE IMPRESSION: Diffuse interstitial prominence. Differential considerations include pulmonary edema, ARDS, or pneumonitis. Approved by: Penelope Granados M.D. on 04/25/2017 at 22:19 04/26/17 - CT BRAIN WITHOUT CONTRAST IMPRESSION: -No acute intracranial abnormality. 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 Approved by: Jens Jarrell M.D. on 04/26/2017 at 7:26 . Additional Diagnostics 04/28/17 - EGD & COLONOSCOPY w/BIOPSIES. ENDOSCOPIC DIAGNOSES: 1. Mild to moderate gastropathy. 2. Duodenal submucosal lesion, question lipoma? 3. Noncontiguous segmental colitis. IBD is within the differential but overall the appearance suggested ischemic change. 4. Hemorrhoids. 5. Otherwise no sign of any recent or active gastrointestinal hemorrhage. RECOMMENDATIONS: 1. Await histopathology. 2. Advance diet as tolerated. 3. If Helicobacter is found, it will need to be eradicated with standard triple therapy. 4. The patient would be encouraged to maintain adequate outpatient hydration and normal blood pressure, and maintain a regular fiber regimen for soft regular stools. 5. From a GI standpoint, the patient can be discharged home at the discretion of the patient's primary service. Tonny Vital MD 04/28/17 1633 Assessment & Plan Rebeca Casarez is a 56-year-old female with extensive medical history including COPD, interstitial lung disease, depression, anxiety, and diabetes mellitus type II insulin using who presented to the ED via EMS due to altered mental status, feeling weak and fatigued. Acute on chronic hypoxic respiratory failure, present on admission Multifactorial etiology, possibly secondary to pneumonia now resolved, patient has a long history of DIP and continues to smoke at home including testing positive for methamphetamines -Pt currently on oxygen nasal cannula, approximately 3 L -Duo nebs when necessary -Trilogy suggested for this patient. This patient requires nocturnal and daytime (PRN) volume ventilation. BiPAP is insufficient due to severity of condition. 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 Chronic. - Continue Glargine 15 units at night - High dose correctional - 05/08/2017 the patient requested to be examined from the Diabetic diet for which she was ordered and nursing had her sign a waiver however after discussing with the patient at length she is agreed to remain on the diabetic diet - Diabetes counseling Upper GI bleed, present on admission. Acute. Resolved. - H/H currently stable - Continue Protonix 40 mg PO BID - Continue to trend - Continue Xarelto Acute kidney injury, present on admission. Acute. Resolved - Possibly due to dehydration and questionable med usage, as she had a significant Nephrology work up in late February - Creatinine now within normal limits - Avoid nephrotoxic medications - Markedly improved Possible Toxic metabolic encephalopathy secondary to amphetamine use, resolved - Encephalopathy may be multifactorial, however, patient has previous mitra of methaphatime use - Picking type ulcerative lesions of face and forearms, Utox was positive for methamphetamine on admission - Patient admits to use at home Hypertension, present on admission. Chronic. - Hold Lisinopril 30mg daily - Patient started on metoprolol succinate 25 mg twice a day Hyperlipidemia, present on admission. Chronic. - Continue atorvastatin 20 mg at night COPD, present on admission. Chronic. - Change to solumedrol 60mg PO BID - Continue DuoNeb and albuterol inhalers as needed GERD, present on admission. Chronic. -Currently on Protonix 40 mg by mouth twice a day Chronic pain, present on admission. Chronic. - Continue gabapentin 600 mg twice daily, 300 mg at noon - Continue methadone 70 mg daily, [place] now RX'd for breakthrough given refractory symptoms. History of DVT, present on admission. Chronic. - Continue Xarelto 20mg Depression, present on admission. Chronic - Continue mirtazapine 15 mg at night - Continue fluoxetine 40 mg daily Anxiety, present on admission. Chronic. - Continue Prazosin 4mg nightly as needed - Continue hydroxyzine 50mg QID as needed - Continue propranolol 10mg TID as needed Tobacco Use Disorder, present on admission. Chronic. - Nicotine patch as needed - Cessation counseled; declined PRN Medications - Acetaminophen as needed for mild pain/fever/headache - Bowel regimen as needed - Antiemetic as needed Disposition: Pt will likely require 1 more days of in patient care before discharge. The patient is still receiving diabetes education and is being encouraged to do all of her insulin dosages as well as blood sugar checks. The patient's oxygen levels seem to be returning to baseline however we will continue to monitor the patient at this time and encouraged her to take a shower and to get moving so that we can see what her oxygen does with exertion. GI Prophylaxis: Proton Pump Inhibitor VTE Prophylaxis: Other (Xarelto) VTE Mechanical Devices: Intermittant Pneumatic CD Resuscitation Status: CPR: Attempt Resuscitation Attending Statement The patient was seen and examined together with Dr. West on 05/08/17 and I have added additional information to the note above. Guru West DO May 08, 2017 07:27 Mercedes Valle DO May 13, 2017 12:11
[2017-05-08] MEDS: Insulin GLARgine 100 Unit/mL Syringe SUBQ SCH (22:15)
[2017-05-09] MEDS: LORazepam 1 mg Tablet PO PRN ×2 (01:01→08:29)
[2017-05-09] MEDS: HYDROcodone-APAP 10-325 mg PO PRN ×2 (01:02→08:31)
[2017-05-09 03:34] LABS: Mean Corpuscular Hemoglobin 27.6 pg (27.0-35.0)
[2017-05-09 03:53] VITALS: BP 114/64; PULSE 78; RESP 18; O2SAT 91
--- NOTE | 2017-05-09 05:10 | NUR ---
Rest/Diabetes Education Pt. a/o, rested for extended periods. C/O intermittent pain, medicated as needed. Pt. indicates some anxiety r/t confusion in learning diabetes management at home. Also expressed readiness to learn. Reviewed insulin scale in relation to obtaining glucose levels, prior to dosing, and association with meal times vs. bedtime. Patient demonstrated some understanding, requested review again today. Showed better understanding of glucose control r/t requests of food choices. No Ice cream received this shift. VSS. No Tele.
[2017-05-09] MEDS: Insulin LISPRO 300 Unit/3 mL Inj SUBQ SCH ×2 (08:00→12:00)
[2017-05-09 08:02] VITALS: BP 149/82; PULSE 71; RESP 14; O2SAT 94
[2017-05-09] MEDS: Furosemide 10 mg/mL 4 mL Inj IVPUSH SCH (08:18)
[2017-05-09] MEDS: predniSONE 20 mg Tablet PO SCH (08:21)
[2017-05-09] MEDS: MeTOProlol XL 25 mg ER24 Tablet PO SCH (08:21)
[2017-05-09] MEDS: Pantoprazole 40 mg ER24 Tablet PO SCH (08:22)
[2017-05-09 09:30] VITALS: PULSE 71; RESP 16; O2SAT 94
[2017-05-09] MEDS ORDERED: NICO-206 TOPICAL ×2 (11:00→11:31)
[2017-05-09] MEDS ORDERED: HYDR-3740 PO ×2 (11:00→11:31)
[2017-05-09] MEDS ORDERED: INSU100I13 SUBQ (11:00)
[2017-05-09] MEDS ORDERED: TEMA15CA3 PO ×2 (11:00→11:31)
--- NOTE | 2017-05-09 11:24 | PCM.DIMED ---
David Levi DO 05/07/17 0756: Discharge Instructions Date of Service May 07, 2017 Dates of Hospitalization Apr 26, 2017 at 01:00 Discharge Diagnosis Discharge Diagnosis Acute on chronic respiratory failure Diabetes mellitus type II insulin using Upper GI bleed Acute kidney injury Possible Toxic metabolic encephalopathy secondary to amphetamine use Hypertension Hyperlipidemia COPD GERD Chronic pain History of DVT Depression Anxiety Tobacco Use Disorder Medication Instructions Additional med instructions We would like you to continue taking all medications as previously prescribed. However, we would like you to take: 15 mg of glargine (Lantus) nightly. Hydrocodone 10 mg every 6 hours as needed Prednisone 60 mg daily for 5 days, 40 mg daily for 5 days, 30 mg daily for 7 days, 20 mg daily for 7 days, 15 mg daily for 7 days, 10 mg daily and continue at this dose until otherwise advised. You may take temazepam 15 mg at night as needed for sleep You may also use nicotine patches as needed for smoking cessation Test Results Test Results A chest x-ray completed here in the hospital shows fluid in the lungs A brain CT scan shows no acute changes. Diet Discharge Diet: No restrictions Activity Discharge Activity: No restrictions Call your provider Call your provider for: Fever or Chills, Shortness of breath, Bleeding, Chest pain, Vomitting, Excessive diarrhea, Weakness (unilateral) Patient Instructions Patient Instructions Please take medications as described above. We would like you to be vigilant in your home care as this will be very important for staying out of the hospital over the next couple of weeks. He is taking her prednisone daily as prescribed, do not skip days, do not stop taking this medication at any time. As we have discussed this medication will increase to your glucose levels. We have discussed various methods of controlling your sugar, but as an outpatient we would like you to continue dosing your insulin at 15 units of Lantus per night. He will check your blood sugars in the morning and at night. You will check your blood sugar prior to giving you her nightly dose of Lantus. As we have discussed, regardless of what your blood sugar shows please give yourself the prefixed 15 units. As you follow-up with your primary care provider your dose of 15 units nightly may change however do not make any changes to this dosing on your own. If your blood sugars are above 400 please contact your primary care provider as soon as possible. As we have discussed, the best thing that you can do for your lungs at this time is to not smoke. Do not smoke. Do not do meth. Do not inhale any fumes of any kind. Take your medications as prescribed. You should use your home oxygen with you feel short of breath or not. You should check your oxygen saturation level with a home monitor, and try to keep your oxygen saturation between 88 and 92%. As you are moving around you will likely require more oxygen, again please try treat your dosing to 88-92%. If you have any questions about your insulin dosing or oxygen , please contact your primary care provider as soon as possible. Follow-up plan Follow-up with Martha Lanza, we have scheduled you an appointment for Tuesday at 12:45 please attend this appointment. Also, continue to follow-up with Dr. Francisco at the soonest available appointment. Follow-up Provider: Martha Lanza Follow-up with PCP in: 1 week (Friday 05/11 at 12:45) Provider: Sophy Francisco MD Follow-up in: 2 weeks Harjinder Lang MD 05/10/17 1735: Discharge Instructions Attending's Statement The patient was seen and examined together with Dr. Levi on 05/09/2017 and I agree with the history, exam and plan as outlined in the note above. . David Levi DO May 07, 2017 07:56 Harjinder Lang MD May 10, 2017 17:35
[2017-05-09] MEDS ORDERED: INSU100V7 SUBQ (11:31)
--- NOTE | 2017-05-09 11:52 | NUR ---
Social Work: Discharge/Multidisciplinary Rounds D: Pt discussed in multidisciplinary rounds; the patient is medically stable for discharge home. Pt does not have access to supportive services from home health due to insurance and psychosocial barriers. Pt did not sign on with hospice. SLAB TRIPPER met with the patient at bedside to confirm her discharge plan. Patient states that she is going back home to her apartment. Her brother is coming to pick her up today. Patient understands she does not have supportive services through home health. She states that she would not want this service anyways. SLAB TRIPPER inquired where patient was in the process of getting her CARSON reestablished. Patient states that she does not want in-home caregivers and is not pursing this service any longer. SLAB TRIPPER inquired about pt's recent substance use and offered outpatient CD resources. Pt declined and intends to continue to follow up at [facility] for Methadone. Pt denies any other needs at this time. Bedside RN will complete discharge ppw and review medications and instructions with pt. A: Pt who lives at home, alone P: Pt to discharge home today with no supportive services. No further discharge planning needs at this time. OSKAR Foy
--- NOTE | 2017-05-09 12:44 | NUR ---
Discharge/Education 0800 - Provided blood glucose and insulin education during her morning check. She was receptive to teaching and participated in her care. She expressed interest in having a Diabetic 0930 - Discussed her care with Dr. Lang and the rest of the multidisciplinary care team during morning rounds. Notified them that she was interested in more diabetic education. They said she would be discharging today. 1145 - Called Karely Castle from [facility] about her Trilogy referral. She said that due to the patient's insurance it was taking a long time to get it approved. She said to give the patient her information upon discharge and that she would try to be in contact with the patient about the status. The Radiology Technician came and provided teaching for her. 1244 - She discharged at this time. Prior to discharge this nurse sat down with her to give and discuss with her the discharge paperwork (prescriptions, care notes, diabetic resources, instructions). Gave her Karely's name and number. She was not given a Prednisone prescription per Dr. Levi as she had Prednisone at home. Dr. Levi said for her to follow the tapering directions of the Prednisone further on in her discharge paperwork instead of the directions on the first page. This was communicated to her. Her IV and Telemetry were discontinued intact. She took all her belongings with her. She was taken out via a wheelchair by the nursing coordinator. She thanked staff for their care.
--- NOTE | 2017-05-09 17:15 | PCM.DC.MED ---
Discharge Summary Date of Service May 09, 2017 Dates of Hospitalization Date of Hospital Admission Apr 26, 2017 at 01:00 Date of Discharge: May 09, 2017 Providers: Admitting Physician: Walt Galeano Primary Care Physician: Martha Lanza Attending Physician: Harjinder Lang MD Diagnosis at Time of Discharge Diagnosis at Time of Discharge Acute on chronic respiratory failure Diabetes mellitus type II insulin using Upper GI bleed Acute kidney injury Possible Toxic metabolic encephalopathy secondary to amphetamine use Hypertension Hyperlipidemia COPD GERD Chronic pain History of DVT Depression Anxiety Tobacco Use Disorder Consultations Pulmonology: Dr. Reed, Dr. Contreras GI: Dr. Vital ID: Dr. Arellano Procedures XRay, CTs & MRIs 04/25/17 - X-RAY CHEST ONE VIEW, PORTABLE IMPRESSION: Diffuse interstitial prominence. Differential considerations include pulmonary edema, ARDS, or pneumonitis. Approved by: Penelope Granados M.D. on 04/25/2017 at 22:19 04/26/17 - CT BRAIN WITHOUT CONTRAST IMPRESSION: -No acute intracranial abnormality. 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 Approved by: Jens Jarrell M.D. on 04/26/2017 at 7:26 . Other Diagnostics 04/28/17 - EGD & COLONOSCOPY w/BIOPSIES. ENDOSCOPIC DIAGNOSES: 1. Mild to moderate gastropathy. 2. Duodenal submucosal lesion, question lipoma? 3. Noncontiguous segmental colitis. IBD is within the differential but overall the appearance suggested ischemic change. 4. Hemorrhoids. 5. Otherwise no sign of any recent or active gastrointestinal hemorrhage. RECOMMENDATIONS: 1. Await histopathology. 2. Advance diet as tolerated. 3. If Helicobacter is found, it will need to be eradicated with standard triple therapy. 4. The patient would be encouraged to maintain adequate outpatient hydration and normal blood pressure, and maintain a regular fiber regimen for soft regular stools. 5. From a GI standpoint, the patient can be discharged home at the discretion of the patient's primary service. Tonny Vital MD 04/28/17 3465 Brief History Taken from H&P completed by Dr. Mackey: Rebeca Casarez is a 56-year-old female with a complex past medical history significant for chronic respiratory failure secondary to COPD and interstitial lung disease, diabetes, stroke, pulmonary hypertension, hepatitis C, DVT, multiple MRSA skin abscesses and former IV drug use. She presented to the ED via EMS with altered mental status, generalized weakness and fatigue. Of note patient has been admitted to [facility] multiple times in the last few months, most recently 04/15-04/17/17. At that time she also presented with altered mental status which was attributed to suspected narcotic overdose as well as acute on chronic respiratory failure.History obtained form the patient but also from review of medical record as she is a poor historian. Patient with melanotic stool for three days along with history of reflux treated with omeprazole in the outpatient setting.Patient tells me that she has never noticed bloody or dark colored stool but that she was told this in the ED. She reports nausea but no vomiting and denies constipation, diarrhea, or abdominal pain. By her account she was at home in her apartment and woke up to her people in her house. She states that she does not know what happened or what was going on at that time. Additionally, she states that following her most recent discharge she stopped taking her medications. She specifically notes the insulin and blood thinner for her DVT but is otherwise unable to say what medications she has been taking. She states that she does not take NSAIDs, drink alcohol or caffeine and denies illicit drug use or tobacco. GI consulted for further evaluation of anemia possibly secondary to upper GI bleeding prior to resuming patient's anticoagulation. Hospital Course Rebeca Casarez is a 56-year-old female with extensive medical history including COPD, interstitial lung disease, depression, anxiety, and diabetes mellitus type II insulin using who presented to the ED via EMS due to altered mental status, feeling weak and fatigued. Acute on chronic hypoxic respiratory failure, present on admission Multifactorial etiology, possibly secondary to pneumonia now resolved, patient has a long history of DIP and continues to smoke at home including testing positive for methamphetamines -Pt currently on oxygen nasal cannula, tolerating 1-3 L depending on activity level -Duo nebs when necessary -Trilogy suggested for this patient. This patient requires nocturnal and daytime (PRN) volume ventilation. BiPAP is insufficient due to severity of condition. 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 Diabetes mellitus type II insulin using, present on admission. Chronic. - Continue Glargine 15 units at night - Patient was scheduled to go home with high-dose correctional mealtime short- acting insulin, however the patient did not understand the suggested regimen and appeared to be unsafe in self selecting these doses. For this reason she was suggested to continue with nighttime doses of Lantus only at 15 units per night. She was told to continue taking blood sugar readings at morning and at night prior to insulin dosing, and a follow-up appointment with her PCP was arranged for 05/11. The patient will monitor her blood sugars closely and at this appointment and any changes to nighttime dosing may be arranged at that time. -Diabetes education has been arranged multiple times for this patient, and she has received many hours of diabetes instruction. Despite this she remains moderately aloof concerning diabetes management and care. We have continued to reiterate the importance of close monitoring and management. Upper GI bleed, present on admission. Acute. Resolved. - H/H currently stable - Continue Protonix 40 mg PO BID - Continue to trend - Continue Xarelto Acute kidney injury, present on admission. Acute. Resolved - Possibly due to dehydration and questionable med usage, as she had a significant Nephrology work up in late February - Creatinine now within normal limits - Avoid nephrotoxic medications - Markedly improved Possible Toxic metabolic encephalopathy secondary to amphetamine use, resolved - Encephalopathy may be multifactorial, however, patient has previous mitra of methaphatime use - Picking type ulcerative lesions of face and forearms, Utox was positive for methamphetamine on admission - Patient admits to use at home - We discussed with the patient multiple times importance of not smoking, especially with use of illicit drugs. She states understanding of the risks, and states that she will refrain from this activity. Hypertension, present on admission. Chronic. - Hold Lisinopril 30mg daily - Patient started on metoprolol succinate 25 mg twice a day Hyperlipidemia, present on admission. Chronic. - Continue atorvastatin 20 mg at night COPD, present on admission. Chronic. - Change to prednisone 60 mg daily - Continue DuoNeb and albuterol inhalers as needed GERD, present on admission. Chronic. -Currently on Protonix 40 mg by mouth twice a day Chronic pain, present on admission. Chronic. - Continue gabapentin 600 mg twice daily, 300 mg at noon - Continue methadone 70 mg daily, - [place] prescribed for home use until patient can be seen by PCP. History of DVT, present on admission. Chronic. - Continue Xarelto 20mg Depression, present on admission. Chronic - Continue mirtazapine 15 mg at night - Continue fluoxetine 40 mg daily Anxiety, present on admission. Chronic. - Continue Prazosin 4mg nightly as needed - Continue hydroxyzine 50mg QID as needed - Continue propranolol 10mg TID as needed Tobacco Use Disorder, present on admission. Chronic. - Nicotine patch as needed - Cessation counseled; declined Exam Vital Signs (Last) Date Time Temp Pulse Resp B/P Pulse Ox O2 Delivery O2 Flow Rate FiO2 05/09/17 09:30 71 16 94 Nasal Cannula 2.00 05/09/17 08:02 36.4 149/82 05/05/17 13:03 40 Exam General: No acute distress, well-developed, well-nourished Head: Normocephalic, atraumatic. External ears without defect. Eyes: Pupils equal, round, and reactive to light and accommodation. Anicteric sclerae, moist conjunctivae. Neck: Normal range of motion, no lymphadenopathy noted Cardiovascular: Regular rate and rhythm with 2/6 systolic murmur, no rubs or gallops appreciated Pulmonary: Clear to auscultation bilaterally no wheezes, rales or rhonchi. Normal respiratory effort with no use of accessory muscles. Abdomen: Bowel tones present. Soft, obese, nontender, nondistended. Extremities: Obvious clubbing, no cyanosis or edema Skin: Normal temperature, turgor, and texture; no rash, ulcers, or subcutaneous nodules appreciated. Neurological: Cranial nerves grossly intact. Reflexes, coordination, and sensory function within normal limits. Normal muscle strength, tone, and bulk. Psychiatric: Normal mood and affect. Alert and oriented to person, place, and time Test 04/25/17 21:46 04/25/17 22:32 04/26/17 12:10 04/27/17 05:20 Magnesium Level 1.9mg/dL (1.6-2.6) Lactic Acid Level 1.0mmol/L (0.4-2.0) Ammonia 38ug/dL (18-53) Salicylates Level < 3.0ug/mL (30-250) Alcohols < 10mg/dL (0-10) Urine Opiates Screen Negative Urine Methadone Screen Positive Urine Barbiturates Screen Negative Urine Amphetamines Screen Positive Urine Benzodiazepines Screen Negative Urine Cocaine Metabolite Screen Negative Urine Cannabinoids Screen Negative Prothrombin Time 10.4sec (8.1-12.5) Prothromb Time International Ratio 0.97ratio Activated Partial Thromboplast Time 20.3sec (22.8-33.0) Test 05/01/17 17:03 05/01/17 22:34 05/02/17 02:20 05/03/17 02:40 Urine Color Straw (YELLOW) Urine Appearance Clear (CLEAR,HAZY) Urine pH 5.5 (5.0-8.0) Urine Specific [place] 1.010 (1.003-1.035) Urine Protein Negativemg/dL (NEG,TRACE) Urine Glucose (UA) 1000mg/dL (NEGATIVE) Urine Ketones Negativemg/dL (NEGATIVE) Urine Occult Blood Negative (NEGATIVE) Urine Nitrite Negative (NEGATIVE) Urine Bilirubin Negative (NEGATIVE) Urine Urobilinogen Normalmg/dL (NORMAL) Urine Leukocyte Esterase Negative (NEGATIVE) Urine RBC 0-2/hpf (0-2) Urine WBC 0-5/hpf (0-5) Urine Epithelial Cells Occasional/hpf (NONE-MOD) Urine Crystals Uric acid crystals (NONE Urine Bacteria None/hpf (NONE-FEW) Urine Hyaline Casts None/lpf (NONE) Urine Granular Casts None seen (NONE SEEN) Urine Waxy Casts None seen (NONE SEEN) Urine Red Blood Cell Casts None seen (NONE SEEN) Urine White Blood Cell Casts None seen (NONE SEEN) Urine Mucus None seen (None Seen) Urine Trichomonas None seen (NONE SEEN) Urine Yeast None (NONE SEEN) Urinalysis Comment None Urine Culture Reflexed Not indicated Troponin T 0.010ug/L (0.0-0.011) Nucleated Red Blood Cells 1/100 WBC (0-24) Band Neutrophils % 2% (1-5) Hematology Comments Vancomycin Level Trough 15.4mcg/mL Test 05/04/17 03:45 05/05/17 02:45 05/06/17 02:25 05/09/17 03:15 Procalcitonin 0.05ng/mL (0.00-0.08) Pro-B-Type Natriuretic Peptide 1847pg/mL (0-287) Neutrophils (%) (Auto) 84.3% (40-74) Lymphocytes (%) (Auto) 7.8% (14-46) Monocytes (%) (Auto) 4.5% (4-12) Eosinophils (%) (Auto) 0.1% (0-5) Basophils (%) (Auto) 0.1% (0-3) White Blood Count 16.8th/mm3 (3.8-10.1) Red Blood Count 4.35mil/mm3 (3.90-5.20) Hemoglobin 12.0g/dL (12.0-15.6) Hematocrit 38.7% (35.0-46.0) Mean Corpuscular Volume 89.0fL (81-100) Mean Corpuscular Hemoglobin 27.6pg (27.0-35.0) Mean Corpuscular Hemoglobin Concent 31.0% (32.0-37.0) Red Cell Distribution Width 20.9% (12.3-15.4) Platelet Count 451bil/L (150-400) Sodium Level 138mEq/L (134-144) Potassium Level 5.0mEq/L (3.5-5.2) Chloride Level 97mEq/L (97-108) Carbon Dioxide Level 27mmol/L (18-29) Blood Urea Nitrogen 48mg/dL (6-24) Creatinine 0.79mg/dL (0.57-1.00) Estimat Glomerular Filtration Rate 107mL/min (>59) Glucose Level 232mg/dL (60-99) Calcium Level 8.5mg/dL (8.5-10.1) Total Bilirubin 0.2mg/dL (0.0-1.2) Aspartate Amino Transf (AST/SGOT) 26U/L (0-50) Alanine Aminotransferase (ALT/SGPT) 51U/L (0-32) Alkaline Phosphatase 87U/L (25-150) Total Protein 5.9g/dL (6.4-8.4) Albumin 3.3g/dL (3.4-5.0) Discharge Medications Discharge Medications Aspirin Chew (Aspirin Chew) 81 Mg Tablet 81 MG PO DAILY Prescribed by: DANIEL PINA DO Atorvastatin Calcium (Atorvastatin Calcium) 20 Mg Tablet 20 MG PO HS Prescribed by: DANIEL PINA DO Fluoxetine (Fluoxetine) 20 Mg Capsule 40 MG PO QAM (Reported) Furosemide (Furosemide) 40 Mg Tablet 40 MG PO QAM (Reported) Gabapentin (Gabapentin) 300 Mg Capsule 600 MG PO BID (Reported) Gabapentin (Gabapentin) 300 Mg Capsule 300 MG PO MIDDAY (Reported) Insulin Glargine (Lantus U100 Insulin Vial) 100 Unit/Ml Vial 15 UNIT SUBQ HS Prescribed by: DARREL JEFFERS DO Lisinopril (Lisinopril) 30 Mg Tablet 30 MG PO DAILY Prescribed by: ZI MARION DO Methadone (Methadone) 10 Mg Tab 70 MG PO DAILY (Reported) Mirtazapine (Mirtazapine) 15 Mg Tablet 15 MG PO HS Prescribed by: FOUZIA SKAGGS MD Nicotine 7 mg/24 hr Patch (Nicotine 7 mg/24 hr Patch) 1 Each Patch.td24 1 PATCH TOPICAL DAILY Prescribed by: DARREL JEFFERS DO Omeprazole (Omeprazole) 20 Mg Capsule.dr 20 MG PO QAM (Reported) Emg683/Iron Fumarate/FA/Dss ( 19 Tablet) 1 Each Tablet 1 EACH PO QAM ( Reported) Prednisone (Deltasone) 20 Mg Tablet 40 MG PO BID Prescribed by: DARREL JEFFERS DO Rivaroxaban (Xarelto) 20 Mg Tablet 20 MG PO DAILY Prescribed by: DARREL JEFFERS DO As needed Albuterol Neb Soln (Albuterol Neb Soln) 1.25 Mg/3 Ml Vial.neb 1.25 MG NEB Q2H PRN PRN For Shortness of Breath Prescribed by: FOUZIA SKAGGS MD Albuterol Sulfate (Ventolin HFA Inhaler) 200 Puff/18 Gm Inhaler 1 PUFF INH Q4 PRN PRN For Wheezing Prescribed by: SWATHI BALDERAS DO Fluticasone Propionate (Fluticasone Propionate Nasal) 16 Gm [place].susp 2 SPRAYS NASAL DAILY PRN PRN For Congestion (Reported) Hydrocodone-Acetaminophen 10-325 mg (Hydrocodone-Acetaminophen 10-325 mg) 1 Each Tablet 1 TABLET PO Q6H PRN PRN For Pain Prescribed by: DARREL JEFFERS DO Hydroxyzine Pamoate (HydrOXYzine Pamoate) 50 Mg Capsule 50 MG PO QID PRN PRN For Anxiety (Reported) Ipratropium/Albuterol Sulfate (Iprat-Albut 0.5-3(2.5) mg/3 mL Inhalant Soln) 3 Ml Ampul.neb 3 ML NEB Q4H PRN PRN For Wheezing Prescribed by: FOUZIA SKAGGS MD Polyethylene Glycol 3350 (Polyethylene Glycol 3350) 17 Gm Powd.pack 17 GM PO DAILY PRN PRN For Constipation (Reported) Prazosin (Prazosin) 2 Mg Capsule 4 MG PO HS PRN PRN nightmares "NIGHTMARES" Prescribed by: FOUZIA SKAGGS MD Propranolol HCl (Propranolol HCl) 10 Mg Tablet 10 MG PO TID PRN PRN For Anxiety (Reported) Temazepam (Restoril) 15 Mg Capsule 15 MG PO HS PRN PRN Insomnia Prescribed by: DARREL JEFFERS, DO Additional med instructions We would like you to continue taking all medications as previously prescribed. However, we would like you to take: 15 mg of glargine (Lantus) nightly. Hydrocodone 10 mg every 6 hours as needed Prednisone 60 mg daily for 5 days, 40 mg daily for 5 days, 30 mg daily for 7 days, 20 mg daily for 7 days, 15 mg daily for 7 days, 10 mg daily and continue at this dose until otherwise advised. You may take temazepam 15 mg at night as needed for sleep You may also use nicotine patches as needed for smoking cessation Followup Plan Disposition: Home with home health Follow-up plan Follow-up with Martha Lanza, we have scheduled you an appointment for Tuesday at 12:45 please attend this appointment. Also, continue to follow-up with Dr. Francisco at the soonest available appointment. Discharge Diet: No restrictions Discharge Activity: No restrictions Patient Instructions Please take medications as described above. We would like you to be vigilant in your home care as this will be very important for staying out of the hospital over the next couple of weeks. He is taking her prednisone daily as prescribed, do not skip days, do not stop taking this medication at any time. As we have discussed this medication will increase to your glucose levels. We have discussed various methods of controlling your sugar, but as an outpatient we would like you to continue dosing your insulin at 15 units of Lantus per night. He will check your blood sugars in the morning and at night. You will check your blood sugar prior to giving you her nightly dose of Lantus. As we have discussed, regardless of what your blood sugar shows please give yourself the prefixed 15 units. As you follow-up with your primary care provider your dose of 15 units nightly may change however do not make any changes to this dosing on your own. If your blood sugars are above 400 please contact your primary care provider as soon as possible. As we have discussed, the best thing that you can do for your lungs at this time is to not smoke. Do not smoke. Do not do meth. Do not inhale any fumes of any kind. Take your medications as prescribed. You should use your home oxygen with you feel short of breath or not. You should check your oxygen saturation level with a home monitor, and try to keep your oxygen saturation between 88 and 92%. As you are moving around you will likely require more oxygen, again please try treat your dosing to 88-92%. If you have any questions about your insulin dosing or oxygen , please contact your primary care provider as soon as possible. Follow-up Provider: Martha Lanza Follow-up with PCP in: 1 week (Friday 05/11 at 12:45) Provider: Sophy Francisco MD Follow-up in: 2 weeks Time spent Greater than 30 minutes was spent in preparation of discharge with greater than 50% of that time dedicated to patient counseling and coordination of care. . Attending Statement The patient was seen and examined together with Dr. Jeffers on 05/09/2017 and I agree with the history, exam and plan as outlined in the note above. . copies to: Sophy Francisco MD; Martha Lanza Adam J DO May 09, 2017 16:10 Harjinder Lang MD May 10, 2017 17:41
== END 2017-05-09 12:51 | disposition home or self-care (01) | DRG 377 ==
LOC: SED 20:55 → EDBD 20:55 → MPC 04-26 01:00 → PCC 05-01 08:48
PROVIDERS: ADMIT Internal Medicine; ATTEND Hospitalist
PROC: 4A033R1 Measurement of Arterial Saturation, Peripheral, Percutaneous Approach (ICD-10-PCS; 2017-04-25)
PROC: 0DBM8ZX Excision of Descending Colon, Via Natural or Artificial Opening Endoscopic, Diagnostic (ICD-10-PCS; 2017-04-28)
PROC: 0DB98ZX Excision of Duodenum, Via Natural or Artificial Opening Endoscopic, Diagnostic (ICD-10-PCS; principal; 2017-04-28 15:45)
PROC: 0DB68ZX Excision of Stomach, Via Natural or Artificial Opening Endoscopic, Diagnostic (ICD-10-PCS; 2017-04-28 15:45)
DX: K92.2 Gastrointestinal hemorrhage, unspecified (principal); G92 Toxic encephalopathy; J96.21 Acute and chronic respiratory failure with hypoxia; N17.9 Acute kidney failure, unspecified; K55.9 Vascular disorder of intestine, unspecified; Z99.81 Dependence on supplemental oxygen; J84.89 Other specified interstitial pulmonary diseases; F15.20 Other stimulant dependence, uncomplicated; T43.62 Poisoning by, adverse effect of and underdosing of amphetamines; Z71.51 Drug abuse counseling and surveillance of drug abuser; Z79.82 Long term (current) use of aspirin; Z79.52 Long term (current) use of systemic steroids; Z79.4 Long term (current) use of insulin; E11.9 Type 2 diabetes mellitus without complications; F43.10 Post-traumatic stress disorder, unspecified; X99 Assault by sharp object; Z86.14 Personal history of Methicillin resistant Staphylococcus aureus infection; F17.210 Nicotine dependence, cigarettes, uncomplicated; I10 Essential (primary) hypertension; Z86.718 Personal history of other venous thrombosis and embolism; Z79.01 Long term (current) use of anticoagulants; E78.5 Hyperlipidemia, unspecified; K21.9 Gastro-esophageal reflux disease without esophagitis; G89.29 Other chronic pain; F32.9 Major depressive disorder, single episode, unspecified; F41.9 Anxiety disorder, unspecified; D50.0 Iron deficiency anemia secondary to blood loss (chronic)